=== PATIENT | female | born 1945 | race Caucasian/White ===

== ENCOUNTER → 2017-09-09 14:52 | Outpatient (CLI) | payer MEDICARE, OTHER, SELFPAY ==
[2017-08-14 19:29] VITALS: BMI 25.1
[2017-08-14 22:25] VITALS: BP 136/58
[2017-09-09 17:58] LABS: Color, Urine Yellow (Yellow); Glucose, Dipstick 1000 mg/dl (Normal); Ketone-Dipstick Negative (Negative); Leukocyte Esterase-Dipstick 25 /ul (Negative); Nitrite-Dipstick Negative (Negative); Occult Blood-Urine Negative /ul (Negative); Protein-Dipstick 15 mg/dl (Negative); Specific Gravity, Urine 1.015 (1.002-1.030); Urine Bilirubin Dipstick Negative (Negative); Urine Clarity Clear (Clear); Urine Urobilinogen Normal (Normal)
[2017-09-09 18:22] LABS: BNP,B-Type NATRIURETIC PEPTIDE 152.6 pg/mL (0-100)
[2017-09-09 18:25] LABS: AST(SGOT) 21 U/L (15-37); Alanine Aminotransfer ALT/SGPT 44 U/L (13-56); Albumin, Serum 3.4 g/dL (3.2-5.0); Alkaline Phosphatase 64 U/L (45-117); Anion Gap 7 (5-15); BUN 28 mg/dL (7-18); BUN/Creat Ratio 24.8 RATIO (10-20); Calcium,Total 8.3 mg/dL (8.5-10.1); Chloride 108 mmol/L (98-107); Creatinine, Serum 1.13 mg/dL (0.55-1.02); EST Glomerular Filtration Rate 50 mL/min (>60); Est Glom Filt Rate - Afr Amer 61 mL/min (>60); Globulin 3.3 g/dL (2.2-4.2); Glucose 120 mg/dL (74-106); Potassium 4.8 mmol/L (3.5-5.1); Protein, Total 6.7 g/dL (6.4-8.2); Sodium Level 141 mmol/L (136-145); Thyroid Stim Hormone (TSH) 1.37 uIU/mL (0.358-3.74)
== END ==
PROVIDERS: Family Provider Family Medicine; PCP Family Medicine; Visit Provider Family Medicine
DX: R60.0 Localized edema (principal); R53.83 Other fatigue; R06.00 Dyspnea, unspecified; E11.9 Type 2 diabetes mellitus without complications
CPT/HCPCS: 36415; 80053; 81002; 83880; 84443

== ENCOUNTER → 2017-09-24 14:13 | Outpatient (CLI) | payer MEDICARE, OTHER, SELFPAY ==
[2017-09-24 15:47] LABS: Basophil# 0.04 X10^3/uL; Basophil% 0.6 % (0-1); Eosinophil# 0.32 X10^3/uL; Eosinophils% 4.7 % (0-5); Hematocrit 35.9 % (37-47); Hemoglobin 11.3 g/dl (12.0-15.0); Lymphocyte % 26.4 % (19-41); Mean Corp Hgb Conc 31.5 g/gl (32-36); Mean Corpuscular Hgb 32.4 pg (27.0-32.0); Mean Corpuscular Volume 102.9 fL (81-99); Mean Platelet Vol. 9.8 fl (6.2-12.0); Monocyte# 0.62 X10^3/uL; Monocyte% 9.1 % (0-10); Neutrophil # 4.04 X10^3/uL (2.7-7.7); Neutrophil % 59.1 % (47-70); Platelet Count 352 K/mm3 (150-450); RBC Distribution Width CV 13.7 % (11.6-14.6); RBC Distribution Width SD 50.6 fl (35.1-43.9); Red Blood Count 3.49 M/mm3 (4.2-5.4); White Blood Count 6.8 K/mm3 (4.4-11.0)
[2017-09-24 15:51] LABS: POSITIVE COUNT NO; POSITIVE DIFFERENTIAL NO; POSITIVE MORPHOLOGY NO
[2017-09-24 15:57] LABS: ALB/GLOB Ratio 1.1 RATIO (0.9-2.4); AST(SGOT) 24 U/L (15-37); Alanine Aminotransfer ALT/SGPT 43 U/L (13-56); Albumin, Serum 3.8 g/dL (3.2-5.0); Alkaline Phosphatase 82 U/L (45-117); Anion Gap 8 (5-15); BUN 29 mg/dL (7-18); BUN/Creat Ratio 28.4 RATIO (10-20); Calcium,Total 8.8 mg/dL (8.5-10.1); Chloride 102 mmol/L (98-107); Creatinine, Serum 1.02 mg/dL (0.55-1.02); EST Glomerular Filtration Rate 57 mL/min (>60); Est Glom Filt Rate - Afr Amer 69 mL/min (>60); Globulin 3.5 g/dL (2.2-4.2); Glucose 114 mg/dL (74-106); Potassium 5.2 mmol/L (3.5-5.1); Protein, Total 7.3 g/dL (6.4-8.2); Sodium Level 136 mmol/L (136-145)
== END ==
PROVIDERS: Family Provider Family Medicine; PCP Family Medicine; Visit Provider Internal Medicine Rheumatology
DX: M06.4 Inflammatory polyarthropathy (principal); Z79.899 Other long term (current) drug therapy; M15.9 Polyosteoarthritis, unspecified; M17.0 Bilateral primary osteoarthritis of knee; M21.40 Flat foot [pes planus] (acquired), unspecified foot; M19.172 Post-traumatic osteoarthritis, left ankle and foot; M48.061 Spinal stenosis, lumbar region without neurogenic claudication; E11.9 Type 2 diabetes mellitus without complications; G25.81 Restless legs syndrome
CPT/HCPCS: 36415; 80053; 85025

== ENCOUNTER → 2017-10-02 12:39 | Outpatient (CLI) | payer MEDICARE, OTHER, SELFPAY ==
--- NOTE | 2017-10-02 12:42 | ECHOD_ITS ---
Reason For Study: BLE swelling Procedure This was a 2D Doppler, Color Flow transthoracic echocardiogram. Exam performed in department. Left Ventricle Normal LV size. Left ventricular systolic function is normal. The estimated ejection fraction is 65 %. No evidence for diastolic dysfunction. No regional wall motion abnormalities noted. Right Ventricle Normal RV size. Normal systolic function. Atria The left atrium is mildly enlarged. Normal right atrium. Mitral Valve Normal mitral valve. Mild (1+) eccentric mitral valve insufficiency. Tricuspid Valve Normal tricuspid valve. Mild (1+) tricuspid valve insufficiency. Pulmonary artery systolic pressure is 34 mmHg. Aortic Valve Normal aortic valve. Trisinus/trileaflet aortic valve. Pulmonic Valve Normal pulmonic valve. Great Vessels Normal aortic root. The pulmonary artery is normal size. Normal inferior vena cava. Pericardium/Pleural No pericardial effusion. MMode/2D Measurements & Calculations LVIDd: 4.0 cm IVSd: 1.1 cm LVOT diam: 1.9 cm LVIDs: 2.3 cm LVPWd: 0.97 cm LVOT area: 2.9 cm2 RVDd: 3.2 cm FS: 42.8 % Ao root diam: 2.6 cm LAV(MOD-bp): 75.0 ml LA A4 area: 22.9 cm2 LA dimension: 4.1 cm LAV(MOD-bp) Indexed: 48.2 ml/m2 LAV(MOD-sp2): 70.8 ml LAV(MOD-sp4): 77.5 ml RA A4 area: 16.2 cm2 Time Measurements MV dec time: 0.24 sec Doppler Measurements & Calculations MV E max eriberto: 94.5 cm/sec Lat Peak E' Eriberto: 7.5 cm/sec Med Peak E' Eriberto: 7.0 cm/sec MV A max eriberto: 89.3 cm/sec E/E' lat: 12.5 E/E' med: 13.5 MV E/A: 1.1 Ao V2 max: 128.8 cm/sec LV V1 max: 94.2 cm/sec PA V2 max: 93.5 cm/sec Ao max P.6 mmHg LV V1 max P.6 mmHg Ao V2 mean: 88.3 cm/sec Ao mean P.4 mmHg Ao V2 VTI: 32.5 cm WARREN(V,D): 2.1 cm2 TR max eriberto: 269.1 cm/sec TR max P.0 mmHg Interpretation Summary Normal LV size. Left ventricular systolic function is normal. The estimated ejection fraction is 65 %. Mild (1+) eccentric mitral valve insufficiency. Mild (1+) tricuspid valve insufficiency. Ordering Physician: Leonard Stewart Referring Physician: Leonard Stewart Performed By: Guerda Cisse, LYNN, RVT
== END ==
PROVIDERS: Family Provider Family Medicine; PCP Family Medicine; Visit Provider Family Medicine
DX: R60.0 Localized edema (principal); R53.83 Other fatigue
CPT/HCPCS: 93306

== ENCOUNTER → 2017-10-14 12:36 | Outpatient (CLI) | payer MEDICARE, OTHER, SELFPAY ==
--- NOTE | 2017-10-14 12:38 | VDLE_ITS ---
Reason For Study: edema RIGHT LEFT CFV is compressible, spontaneous, phasic, CFV is compressible, spontaneous, phasic, competent and demonstrates normal competent, and demonstrates normal augmentation. augmentation. FV is compressible, spontaneous, phasic, FV is compressible, spontaneous, phasic, competent and demonstrates normal competent and demonstrates normal augmentation. augmentation. POP V is compressible, spontaneous, phasic, POP V is compressible, spontaneous, phasic, competent and demonstrates normal competent and demonstrates normal augmentation. augmentation. T/P Trunk is compressible. T/P Trunk is compressible. PTV is compressible. PTV is compressible. RT PerV is compressible. LT PerV is compressible. S-F Junction is incompetent for greater S-F Junction is competent. than .5 seconds. GSV is competent throughout. GSV is competent throughout. SSV is competent. SSV is competent. Procedure Exam performed in department. The exam was diagnostic. A preliminary report was called and/or faxed to Dr. Stewart. Interpretation Summary Deep veins of the lower extremities are bilaterally patent and compressible segmentally. There is no evidence of deep vein thrombosis on either side. Valvular competence appears intact within the proximal deep venous systems bilaterally. The greater saphenous veins appear bilaterally patent and compressible segmentally. The right sapheno-femoral junction is incompetent . The left sapheno- femoral junction is competent . Valvular competence appears to be intact segmentally within the greater saphenous veins bilaterally. Small saphenous veins are patent and competent bilaterally. Ordering Physician: Leonard Stewart Performed By: Fox Conley RVT
== END ==
PROVIDERS: Family Provider Family Medicine; PCP Family Medicine; Visit Provider Family Medicine
DX: R60.0 Localized edema (principal)
CPT/HCPCS: 93970

== ENCOUNTER → 2017-12-23 15:20 | Outpatient (CLI) | payer MEDICARE, OTHER, SELFPAY ==
[2017-12-23 18:12] LABS: Absolute Lymphocyte Count 1.87 X10^3/ul (0.83-4.51); Absolute Neutrophil Count 4.8 X10^3/uL (2.0-7.7); Basophil# 0.03 X10^3/uL; Basophil% 0.4 % (0-1); Eosinophil# 0.11 X10^3/uL; Eosinophils% 1.5 % (0-5); Hematocrit 33.5 % (37-47); Hemoglobin 11.2 g/dl (12.0-15.0); Lymphocyte # 1.87 X10^3/ul (4.0); Lymphocyte % 25.3 % (19-41); Mean Corp Hgb Conc 33.4 g/gl (32-36); Mean Corpuscular Hgb 31.2 pg (27.0-32.0); Mean Corpuscular Volume 93.3 fL (81-99); Monocyte# 0.58 X10^3/uL; Monocyte% 7.9 % (0-10); Neutrophil # 4.78 X10^3/uL (2.7-7.7); Neutrophil % 64.8 % (47-70); Platelet Count 322 K/mm3 (150-450); RBC Distribution Width CV 13.6 % (11.6-14.6); RBC Distribution Width SD 46.2 fl (35.1-43.9); Red Blood Count 3.59 M/mm3 (4.2-5.4); White Blood Count 7.4 K/mm3 (4.4-11.0)
[2017-12-23 18:25] LABS: ALB/GLOB Ratio 1.1 RATIO (0.9-2.4); AST(SGOT) 17 U/L (15-37); Alanine Aminotransfer ALT/SGPT 29 U/L (13-56); Albumin, Serum 3.7 g/dL (3.2-5.0); Alkaline Phosphatase 84 U/L (45-117); Anion Gap 9 (5-15); BUN 25 mg/dL (7-18); BUN/Creat Ratio 25.1 RATIO (10-20); Calcium,Total 8.5 mg/dL (8.5-10.1); Chloride 110 mmol/L (98-107); EST Glomerular Filtration Rate 58 mL/min (>60); Est Glom Filt Rate - Afr Amer 71 mL/min (>60); Globulin 3.4 g/dL (2.2-4.2); Glucose 109 mg/dL (74-106); Potassium 4.8 mmol/L (3.5-5.1); Protein, Total 7.1 g/dL (6.4-8.2); Sodium Level 140 mmol/L (136-145)
[2017-12-23 18:29] LABS: POSITIVE COUNT NO; POSITIVE DIFFERENTIAL NO; POSITIVE MORPHOLOGY NO
== END ==
PROVIDERS: Family Provider Family Medicine; PCP Family Medicine; Visit Provider Internal Medicine Rheumatology
DX: M06.4 Inflammatory polyarthropathy (principal); Z79.899 Other long term (current) drug therapy; M15.9 Polyosteoarthritis, unspecified; M25.511 Pain in right shoulder; M17.0 Bilateral primary osteoarthritis of knee; M21.40 Flat foot [pes planus] (acquired), unspecified foot; M19.172 Post-traumatic osteoarthritis, left ankle and foot; M48.061 Spinal stenosis, lumbar region without neurogenic claudication; E11.9 Type 2 diabetes mellitus without complications; G25.81 Restless legs syndrome
CPT/HCPCS: 36415; 80053; 85025

== ENCOUNTER → 2018-03-02 13:49 | Outpatient (CLI) | payer MEDICARE, OTHER, SELFPAY | PROVIDERS: Family Provider Family Medicine; PCP Family Medicine; Visit Provider Family Medicine | DX: E11.9 Type 2 diabetes mellitus without complications (principal); E53.8 Deficiency of other specified B group vitamins; D50.9 Iron deficiency anemia, unspecified; D53.9 Nutritional anemia, unspecified; E55.9 Vitamin D deficiency, unspecified ==

== ENCOUNTER → 2018-03-03 15:07 | Outpatient (CLI) | payer MEDICARE, OTHER, SELFPAY | PROVIDERS: Family Provider Family Medicine; PCP Family Medicine; Visit Provider Family Medicine | DX: S81.812A Laceration without foreign body, left lower leg, initial encounter (principal) | CPT/HCPCS: 87070; 87077; 87186; 87205 ==

== ENCOUNTER → 2018-03-09 13:48 | Outpatient (CLI) | payer MEDICARE, OTHER, SELFPAY ==
[2018-03-09 14:53] LABS: Absolute Lymphocyte Count 1.38 X10^3/ul (0.83-4.51); Absolute Neutrophil Count 4.6 X10^3/uL (2.0-7.7); Basophil# 0.02 X10^3/uL; Basophil% 0.3 % (0-1); Eosinophil# 0.08 X10^3/uL; Eosinophils% 1.2 % (0-5); Hematocrit 30.6 % (37-47); Hemoglobin 9.6 g/dl (12.0-15.0); Lymphocyte # 1.38 X10^3/ul (4.0); Lymphocyte % 20.7 % (19-41); Mean Corp Hgb Conc 31.4 g/gl (32-36); Mean Corpuscular Hgb 31.4 pg (27.0-32.0); Mean Platelet Vol. 9.3 fl (6.2-12.0); Monocyte# 0.61 X10^3/uL; Monocyte% 9.1 % (0-10); Neutrophil # 4.57 X10^3/uL (2.7-7.7); Neutrophil % 68.4 % (47-70); Platelet Count 370 K/mm3 (150-450); RBC Distribution Width CV 14.1 % (11.6-14.6); RBC Distribution Width SD 51.1 fl (35.1-43.9); Red Blood Count 3.06 M/mm3 (4.2-5.4); White Blood Count 6.7 K/mm3 (4.4-11.0)
[2018-03-09 14:56] LABS: POSITIVE COUNT NO; POSITIVE DIFFERENTIAL NO; POSITIVE MORPHOLOGY NO
[2018-03-09 15:06] LABS: ALB/GLOB Ratio 0.9 RATIO (0.9-2.4); AST(SGOT) 18 U/L (15-37); Alanine Aminotransfer ALT/SGPT 24 U/L (13-56); Albumin, Serum 3.2 g/dL (3.2-5.0); Alkaline Phosphatase 74 U/L (45-117); Anion Gap 9 (5-15); BUN 24 mg/dL (7-18); BUN/Creat Ratio 17.9 RATIO (10-20); Calcium,Total 8.5 mg/dL (8.5-10.1); Chloride 114 mmol/L (98-107); Cholesterol 157 mg/dL (200); Creatinine, Serum 1.34 mg/dL (0.55-1.02); EST Glomerular Filtration Rate 41 mL/min (>60); Est Glom Filt Rate - Afr Amer 50 mL/min (>60); Ferritin 34 ng/mL (8-252); Globulin 3.4 g/dL (2.2-4.2); Glucose 47 mg/dL (74-106); High Density Lipoprotein 90 mg/dL; Iron 84 ug/dL (50-170); Potassium 4.6 mmol/L (3.5-5.1); Protein, Total 6.6 g/dL (6.4-8.2); Sodium Level 144 mmol/L (136-145); Triglycerides 113 mg/dL; Very Low Density Lipoprotein 23 mg/dL (5-40)
[2018-03-09 15:08] LABS: Hemoglobin A1c 7.8 % (4.2-6.3)
[2018-03-09 15:12] LABS: Vitamin B12 456 pg/mL (211-911); Vitamin D,25 Hydroxy 12.9 ng/mL (29.95-100.01)
[2018-03-09 15:19] LABS: Microalbumin:Creatinine Ratio 47.2 mg/g CRE (<30 mg/g CRE)
== END ==
PROVIDERS: Family Provider Family Medicine; PCP Family Medicine; Visit Provider Family Medicine
DX: E11.9 Type 2 diabetes mellitus without complications (principal); E53.8 Deficiency of other specified B group vitamins; D50.9 Iron deficiency anemia, unspecified; D53.9 Nutritional anemia, unspecified; E55.9 Vitamin D deficiency, unspecified
CPT/HCPCS: 36415; 80053; 80061; 82043; 82306; 82570; 82607; 82728; 83036; 83540; 85025

== ENCOUNTER → 2018-03-18 13:13 | Outpatient (CLI) | payer MEDICARE, OTHER, SELFPAY ==
[2018-03-18 14:36] LABS: Absolute Lymphocyte Count 1.41 X10^3/ul (0.83-4.51); Absolute Neutrophil Count 5.6 X10^3/uL (2.0-7.7); Basophil# 0.02 X10^3/uL; Basophil% 0.3 % (0-1); Eosinophil# 0.06 X10^3/uL; Eosinophils% 0.8 % (0-5); Hematocrit 30.4 % (37-47); Lymphocyte # 1.41 X10^3/ul (4.0); Lymphocyte % 18.4 % (19-41); Mean Corp Hgb Conc 32.9 g/gl (32-36); Mean Corpuscular Hgb 31.4 pg (27.0-32.0); Mean Corpuscular Volume 95.6 fL (81-99); Mean Platelet Vol. 9.6 fl (6.2-12.0); Monocyte# 0.57 X10^3/uL; Monocyte% 7.4 % (0-10); Neutrophil % 72.8 % (47-70); Platelet Count 321 K/mm3 (150-450); RBC Distribution Width CV 13.7 % (11.6-14.6); RBC Distribution Width SD 47.4 fl (35.1-43.9); Red Blood Count 3.18 M/mm3 (4.2-5.4); White Blood Count 7.7 K/mm3 (4.4-11.0)
[2018-03-18 14:46] LABS: ALB/GLOB Ratio 0.9 RATIO (0.9-2.4); AST(SGOT) 17 U/L (15-37); Alanine Aminotransfer ALT/SGPT 20 U/L (13-56); Albumin, Serum 3.3 g/dL (3.2-5.0); Alkaline Phosphatase 80 U/L (45-117); Anion Gap 10 (5-15); BUN 27 mg/dL (7-18); BUN/Creat Ratio 24.1 RATIO (10-20); Calcium,Total 8.6 mg/dL (8.5-10.1); Chloride 110 mmol/L (98-107); Creatinine, Serum 1.12 mg/dL (0.55-1.02); EST Glomerular Filtration Rate 51 mL/min (>60); Est Glom Filt Rate - Afr Amer 62 mL/min (>60); Globulin 3.8 g/dL (2.2-4.2); Glucose 129 mg/dL (74-106); Potassium 4.3 mmol/L (3.5-5.1); Protein, Total 7.1 g/dL (6.4-8.2); Sodium Level 140 mmol/L (136-145)
[2018-03-18 14:47] LABS: POSITIVE COUNT NO; POSITIVE DIFFERENTIAL NO; POSITIVE MORPHOLOGY NO
== END ==
PROVIDERS: Family Provider Family Medicine; PCP Family Medicine; Visit Provider Internal Medicine Rheumatology
DX: M06.4 Inflammatory polyarthropathy (principal); Z79.899 Other long term (current) drug therapy; M15.9 Polyosteoarthritis, unspecified; M25.511 Pain in right shoulder; M17.0 Bilateral primary osteoarthritis of knee; M21.40 Flat foot [pes planus] (acquired), unspecified foot; M19.172 Post-traumatic osteoarthritis, left ankle and foot; M48.061 Spinal stenosis, lumbar region without neurogenic claudication; E11.9 Type 2 diabetes mellitus without complications; G25.81 Restless legs syndrome
CPT/HCPCS: 36415; 80053; 85025

== ENCOUNTER → 2018-06-15 16:09 | Outpatient (CLI) | payer MEDICARE, OTHER, SELFPAY ==
[2018-06-15 18:00] LABS: Absolute Lymphocyte Count 1.27 X10^3/ul (0.83-4.51); Absolute Neutrophil Count 3.8 X10^3/uL (2.0-7.7); Basophil# 0.02 X10^3/uL; Basophil% 0.3 % (0-1); Eosinophil# 0.14 X10^3/uL; Eosinophils% 2.4 % (0-5); Hematocrit 32.1 % (37-47); Hemoglobin 10.2 g/dl (12.0-15.0); Lymphocyte # 1.27 X10^3/ul (4.0); Lymphocyte % 21.9 % (19-41); Mean Corp Hgb Conc 31.8 g/gl (32-36); Mean Corpuscular Hgb 30.7 pg (27.0-32.0); Mean Corpuscular Volume 96.7 fL (81-99); Monocyte# 0.55 X10^3/uL; Monocyte% 9.5 % (0-10); Neutrophil # 3.82 X10^3/uL (2.7-7.7); Neutrophil % 65.7 % (47-70); Platelet Count 307 K/mm3 (150-450); RBC Distribution Width CV 14.4 % (11.6-14.6); RBC Distribution Width SD 47.4 fl (35.1-43.9); Red Blood Count 3.32 M/mm3 (4.2-5.4); White Blood Count 5.8 K/mm3 (4.4-11.0)
[2018-06-15 18:04] LABS: POSITIVE COUNT NO; POSITIVE DIFFERENTIAL NO; POSITIVE MORPHOLOGY NO
[2018-06-15 18:07] LABS: AST(SGOT) 11 U/L (15-37); Alanine Aminotransfer ALT/SGPT 21 U/L (13-56); Albumin, Serum 3.3 g/dL (3.2-5.0); Alkaline Phosphatase 94 U/L (45-117); Anion Gap 10 (5-15); BUN 24 mg/dL (7-18); BUN/Creat Ratio 20.7 RATIO (10-20); Calcium,Total 8.4 mg/dL (8.5-10.1); Chloride 105 mmol/L (98-107); Creatinine, Serum 1.16 mg/dL (0.55-1.02); EST Glomerular Filtration Rate 49 mL/min (>60); Est Glom Filt Rate - Afr Amer 59 mL/min (>60); Globulin 3.3 g/dL (2.2-4.2); Glucose 154 mg/dL (74-106); Potassium 4.4 mmol/L (3.5-5.1); Protein, Total 6.6 g/dL (6.4-8.2); Sodium Level 141 mmol/L (136-145)
== END ==
PROVIDERS: Family Provider Family Medicine; PCP Family Medicine; Referring Provider Internal Medicine Rheumatology; Visit Provider Internal Medicine Rheumatology
DX: M06.4 Inflammatory polyarthropathy (principal); Z79.899 Other long term (current) drug therapy; M15.9 Polyosteoarthritis, unspecified; M17.0 Bilateral primary osteoarthritis of knee; M21.40 Flat foot [pes planus] (acquired), unspecified foot; M19.172 Post-traumatic osteoarthritis, left ankle and foot; E11.9 Type 2 diabetes mellitus without complications; G25.81 Restless legs syndrome
CPT/HCPCS: 36415; 80053; 85025

== ENCOUNTER 2018-06-24 11:25 | Emergency (ER) | payer OTHER, MEDICARE, SELFPAY ==
[2018-06-24 11:26] VITALS: BP 174/58; PULSE 63; RESP 16; TEMP 36.7; O2SAT 99; BMI 24.4
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
[2018-06-24] MEDS: Ondansetron ODT 4 MG Tablet PO (12:12)
[2018-06-24] MEDS: morphine 8 MG/ML Syringe SC (12:12)
--- NOTE | 2018-06-24 13:11 | NURSING ---
DR Dena DUGAN
--- NOTE | 2018-06-24 13:30 | ED.RN ---
ATTEMPTED TO PLACE IV AND DRAW LABS X1 ATTEMPT. ENTERS ROOM AND STATES THAT PT CAN GO HOME AND SEE DR FRANCO AN OUTPT. DR STATES THAT IV AND LABS NOT NEEDED. DR AWARE OF ELEVATED BP-STATES IT'S D/T ELEVATED PAIN LEVEL. KNEE IMMOBILIZER APPLIED TO RT KNEE. PT AMB FROM BED TO DOOR AND BACK TO BED. ASSISTED W/BEDSIDE COMMODE. PT STATES SHE FEELS COMFORTABLE GOING HOME. DR STATES OK FOR PT TO GO HOME AFTER CT SCAN OBTAINED. PT AND FAMILY AGREEABLE.
[2018-06-24 13:45] VITALS: BP 188/66; PULSE 63; RESP 16; O2SAT 100
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
[2018-06-24] MEDS: oxyCODONE 5 MG Tablet 10 MG PO (14:38)
[2018-06-24 14:47] VITALS: BP 205/92; PULSE 63; RESP 16; O2SAT 100
== END 2018-06-24 14:50 | disposition home or self-care (01) ==
LOC: ED 12:06
PROVIDERS: Emergency Provider Emergency Medicine; Family Provider Family Medicine; PCP Family Medicine
DX: S82.141A Displaced bicondylar fracture of right tibia, initial encounter for closed fracture (principal); V43.52XA Car driver injured in collision with other type car in traffic accident, initial encounter; Y93.9 Activity, unspecified; Y92.9 Unspecified place or not applicable; E11.9 Type 2 diabetes mellitus without complications; Z79.84 Long term (current) use of oral hypoglycemic drugs
CPT/HCPCS: 73502; 73560; 73700; 96372; 99285; A4216

== ENCOUNTER → 2018-09-03 17:31 | Outpatient (CLI) | payer OTHER, MEDICARE, SELFPAY ==
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
== END ==
PROVIDERS: Family Provider Family Medicine; PCP Family Medicine; Referring Provider Physician Assistant Surgical; Visit Provider Physician Assistant Surgical
DX: S82.134D Nondisplaced fracture of medial condyle of right tibia, subsequent encounter for closed fracture with routine healing (principal); S72.434D Nondisplaced fracture of medial condyle of right femur, subsequent encounter for closed fracture with routine healing
CPT/HCPCS: 73700

== ENCOUNTER 2018-10-28 08:16 | Outpatient (RCR) | payer MEDICARE, OTHER, SELFPAY ==
[2018-10-28 09:09] VITALS: BP 150/58; PULSE 72; RESP 18; TEMP 36.4; BMI 24.4
--- NOTE | 2018-10-28 12:43 | PCM.WC.HP ---
(1) Open wound of left lower extremity Status: Acute Current Visit: Yes Code(s): S81.802A - Unspecified open wound, left lower leg, initial encounter Comment: Traumatic/penetrating with fat layer exposed. History of Present Illness Date of Service: 10/28/18 Chief Complaint: Non healing left lower extremity wound. History of Wound: Ms. Garcia is a 73-year-old who was in a stable state of health until about 3 weeks ago when a PET cage fell on her left lower extremity creating a wound. She had been managed by her primary care physician and has applied a silver dressing daily however there has been slow progression in healing. She denies any significant drainage. She also denies chills, fever or feeling of unwell. Past Medical History Allergies/Adverse Reactions: Allergies No Known Allergies Allergy (Verified 06/24/18 11:33) Home Medications: Ambulatory Orders Medication Instructions Recorded Empagliflozin [Jardiance] 10 mg PO DAILY 08/14/17 Ferrous Sulfate [Iron] 325 mg PO DAILY 08/14/17 Pioglitazone [Actos] 15 mg PO DAILY 08/14/17 Pramipexole Di-HCl [Mirapex] 2 mg PO QHS 08/14/17 Sitagliptin Phos/Metformin HCl 1 tablet PO BIDCM 08/14/17 [Janumet 50-1,000 MG Tablet] Propranolol HCl 20 mg PO BID 10/28/18 Smoking Status: Never smoker Review of Systems Constitutional: Denies: Anorexia, Chills, Fever, Night Sweats Eyes: Denies: Blurred vision, Pain, Redness HEENT: Denies: Difficulty Swallowing Cardiovascular: Denies: Claudication Respiratory: Denies: Hemoptysis Gastrointestinal: Denies: Abdominal Pain, Hematemesis, Vomiting Genitourinary: Denies: Hematuria Skin: Denies: Jaundice - Physical Exam Vital Signs Temp Pulse Resp BP 97.5 F L 72 18 150/58 H 10/28/18 09:09 10/28/18 09:09 10/28/18 09:09 10/28/18 09:09 General: Alert, Oriented x3, Cooperative, No apparent distress HEENT: Atraumatic, Normocephalic Oral: Moist Mucosa Neck: Supple Lungs: Normal air movement Cardiovascular: Regular rate, Regular Rhythm, Normal S1, Normal S2 Abdomen: Soft, Non Tender Extremities: No cyanosis, Edema Skin: Ulcer/ Wound Wound Measurements and Assessment WC - Nurse 1 - General Ulcer Measurement Start: 10/28/18 09:09 Freq: Status: Active Protocol: Activity Type Activity Date Activity User E-Sign Co-Sign Detail Recorded Client Recorded Date Recorded By Document 10/28/18 09:09 RB [id number] 10/28/18 09:13 RB 10/28/18 09:09 Wound Center Nurse 1 [Ulcer Assessment] 1. L scherer -Combined with other wound No -Current Size (cm) - Length 3.9 -Current Size (cm) - Width 0.4 -Current Size (cm) - Depth 0.2 -Total Square Cm 1.56 -Photo Taken Yes -Tunneling No -Undermining/Tunneling No -Circular Undermining No -Exudate Amt Small -Exudate Type Serosanguineous -Wound Margin Distinct, Outline Attached -Granulation Amt Medium (34-66%) -Granulation Quality [place] -Slough/Fibrin Yes -Necrosis Amt Small (1-33%) -Necrotic Tissue Type Adherent Slough -Structure Exposed N/A -Texture (Stefany-wound Skin Appearance) Assessed -Moisture (Stefany-wound Skin Appearance Assessed ) -Color (Stefany-wound Skin Appearance) Assessed -Temperature (Stefany-wound Skin No Abnormality Appearance) (Pt Warm) -Tenderness on Palpation (Stefany-wound No Skin Appearance) -Ulcer Cleansing Rinsed/ Irrigated with Saline -Foul Odor after Cleansing No -Anesthetic Used 4% Lidocaine Solution [Edema Assessment] -Lower Limb Edema Present Yes -Right Ankle (cm) 23 -Left Calf (cm) 36 -Left Ankle (cm) 22.5 WC - Nurse 2 - General Ulcer CM Notes Start: 10/28/18 09:09 Freq: Status: Active Protocol: Activity Type Activity Date Activity User E-Sign Co-Sign Detail Recorded Client Recorded Date Recorded By Document 10/28/18 09:29 MW [id number] 10/28/18 09:37 MW 10/28/18 09:29 Wound Center Nurse 2 [Procedure/Treatment] 1. L scherer -Time 09:30 -Correct Patient Yes -Correct Side, Site, Position Yes -Correct Procedure Yes -Procedure Performed Yes -Type of Procedure Debridement -Clinical Debridement Subcutaneous -Post Debridement Size (cm) - Length 4.0 -Post Debridement Size (cm) - Width 0.3 -Post Debridement Size (cm) - Depth 0.1 -Total Square Cm 1.20 -Wound/Ulcer Outcome Not Healed -Ulcer Cleansing Rinsed/ Irrigated with Saline -Foul Odor after Cleansing No -Bioengineered Tissue No -Bleeding Controlled with Pressure -Offloading No -Treatment Response Procedure Tolerated Well [See Physician Procedure note for Specifics] Pain Scale: 0-10 Numeric [Pain] -Is Patient Pain Free? Yes Musculoskeletal: No Muscle Wasting Neurological: Cranial nerves II-XII grossly intact Psych/Mental Status: Normal Affect Debridement Note Post-Debridement Measurements/Treatment WC - Nurse 2 - General Ulcer CM Notes Start: 10/28/18 09:09 Freq: Status: Active Protocol: Activity Type Activity Date Activity User E-Sign Co-Sign Detail Recorded Client Recorded Date Recorded By Document 10/28/18 09:29 MW [id number] 10/28/18 09:37 MW 10/28/18 09:29 Wound Center Nurse 2 1. L scherer -Time 09:30 -Correct Patient Yes -Correct Side, Site, Position Yes -Correct Procedure Yes -Procedure Performed Yes -Type of Procedure Debridement -Clinical Debridement Subcutaneous -Post Debridement Size (cm) - Length 4.0 -Post Debridement Size (cm) - Width 0.3 -Post Debridement Size (cm) - Depth 0.1 -Total Square Cm 1.20 -Wound/Ulcer Outcome Not Healed -Ulcer Cleansing Rinsed/ Irrigated with Saline -Foul Odor after Cleansing No -Bioengineered Tissue No -Bleeding Controlled with Pressure -Offloading No -Treatment Response Procedure Tolerated Well Pain Scale: 0-10 Numeric Is Patient Pain Free? Yes Wound debrided: Left lower extremity Wound Grade/Stage: Stage II Type of Debridement: Excisional debridement Anesthesia Used: 4% Lidocaine Solution Depth: Down to and including healthy tissue, in the subcutaneous layer Percentage of wound debrided: 100 Instrument Used: 3mm curette Tissue Removed: Slough and devitalized tissue Severity: Fat Layer Exposed Amount of bleeding with debridement: Mild Bleeding Controlled with: Pressure Patient tolerated procedure well Assessment/Plan Active Problems Open wound of left lower extremity (Acute) Traumatic/penetrating with fat layer exposed. Assessment: Traumatic penetrating left lower extremity wound with fat layer exposed. Plan: Debridement done as documented above. Procedure was well-tolerated. Significant tenderness. Cultures taken. Switch to Fibracol with Adaptic over top. Change daily. Double layer Tubigrip for edema management. Single layer to the right. Advised to elevate lower extremities when seated in bed. Increased protein intake/supplements also recommended. She was advised to call with any questions or concerns. Follow-up in 1 week. This note was generated with [employer] dictation software. It may contain incorrect words, spelling, and punctuation that were not noted in checking the note before signing.
== END 2018-11-01 23:59 ==
LOC: WC 08:16
PROVIDERS: Family Provider Family Medicine; PCP Family Medicine; Visit Provider Internal Medicine
DX: S81.832A Puncture wound without foreign body, left lower leg, initial encounter (principal); W22.8XXA Striking against or struck by other objects, initial encounter
CPT/HCPCS: 11042; 87070; 87075; 87205; 99213; G0463

== ENCOUNTER 2018-11-25 10:30 | Outpatient (RCR) | payer MEDICARE, OTHER, SELFPAY ==
[2018-11-02 01:44] VITALS: BP 150/58; PULSE 72; RESP 18; TEMP 36.4
[2018-11-04 10:01] VITALS: BP 147/78; PULSE 67; RESP 16; TEMP 36.6; BMI 24.4
--- NOTE | 2018-11-04 13:54 | PCM.WC.PN ---
(1) Open wound of left lower extremity Status: Acute Current Visit: No Code(s): S81.802A - Unspecified open wound, left lower leg, initial encounter Comment: Traumatic/penetrating with fat layer exposed. Type of Wound Chief Complaint: Non healing left lower extremity wound. History of Wound: Ms. Garcia is a 73-year-old who was in a stable state of health until about 3 weeks ago when a PET cage fell on her left lower extremity creating a wound. She had been managed by her primary care physician and has applied a silver dressing daily however there has been slow progression in healing. She denies any significant drainage. She also denies chills, fever or feeling of unwell. Progress of Wound: Improving. No new concerns at this time. Culture with no growth. - Physical Exam Vital Signs Temp Pulse Resp BP 98 F 67 16 147/78 H 11/04/18 10:01 11/04/18 10:01 11/04/18 10:01 11/04/18 10:01 General: Alert, Oriented x3, Cooperative, No apparent distress HEENT: Atraumatic, Normocephalic Oral: Moist Mucosa Neck: Supple Lungs: Normal air movement Extremities: No cyanosis Skin: Ulcer/ Wound Wound Measurements and Assessment WC - Nurse 1 - General Ulcer Measurement Start: 11/04/18 10:01 Freq: Status: Active Protocol: Activity Type Activity Date Activity User E-Sign Co-Sign Detail Recorded Client Recorded Date Recorded By Document 11/04/18 10:01 [facility] [id number] 11/04/18 10:09 [facility] 11/04/18 10:01 Wound Center Nurse 1 [Ulcer Assessment] 1. L scherer -Combined with other wound No -Current Size (cm) - Length 3.7 -Current Size (cm) - Width 0.3 -Current Size (cm) - Depth 0.1 -Total Square Cm 1.11 -Photo Taken No -Epithelialization None Present -Tunneling No -Undermining/Tunneling No -Circular Undermining No -Exudate Amt None Present -Wound Margin Distinct, Outline Attached -Granulation Amt None Present (0 %) -Slough/Fibrin Yes -Necrosis Amt Large (67-100%) -Necrotic Tissue Type Adherent Slough -Texture (Stefany-wound Skin Appearance) Assessed Scarring -Moisture (Stefany-wound Skin Appearance Assessed ) Dry/Scaly -Color (Stefany-wound Skin Appearance) Assessed -Temperature (Stefany-wound Skin No Abnormality Appearance) (Pt Warm) -Tenderness on Palpation (Stefany-wound No Skin Appearance) -Ulcer Cleansing Rinsed/ Irrigated with Saline -Foul Odor after Cleansing No -Anesthetic Used 5% Lidocaine Gel [Edema Assessment] -Lower Limb Edema Present Yes -Left Calf (cm) 34 -Left Ankle (cm) 21.1 WC - Nurse 2 - General Ulcer CM Notes Start: 11/04/18 10:01 Freq: Status: Active Protocol: Activity Type Activity Date Activity User E-Sign Co-Sign Detail Recorded Client Recorded Date Recorded By Document 11/04/18 10:28 MW [id number] 11/04/18 10:30 MW 11/04/18 10:28 Wound Center Nurse 2 [Procedure/Treatment] 1. L scherer -Time 10:28 -Correct Patient Yes -Correct Side, Site, Position Yes -Correct Procedure Yes -Procedure Performed Yes -Type of Procedure Debridement -Clinical Debridement Subcutaneous -Post Debridement Size (cm) - Length 3.0 -Post Debridement Size (cm) - Width 0.3 -Post Debridement Size (cm) - Depth 0.1 -Total Square Cm 0.90 -Wound/Ulcer Outcome Not Healed -Ulcer Cleansing Rinsed/ Irrigated with Saline -Foul Odor after Cleansing No -Bioengineered Tissue No -Bleeding Controlled with Pressure -Offloading No -Treatment Response Procedure Tolerated Well [See Physician Procedure note for Specifics] Pain Scale: 0-10 Numeric [Pain] -Is Patient Pain Free? Yes Musculoskeletal: No Muscle Wasting Neurological: Cranial nerves II-XII grossly intact Psych/Mental Status: Normal Affect Debridement Note Post-Debridement Measurements/Treatment WC - Nurse 2 - General Ulcer CM Notes Start: 11/04/18 10:01 Freq: Status: Active Protocol: Activity Type Activity Date Activity User E-Sign Co-Sign Detail Recorded Client Recorded Date Recorded By Document 11/04/18 10:28 MW [id number] 11/04/18 10:30 MW 11/04/18 10:28 Wound Center Nurse 2 1. L scherer -Time 10:28 -Correct Patient Yes -Correct Side, Site, Position Yes -Correct Procedure Yes -Procedure Performed Yes -Type of Procedure Debridement -Clinical Debridement Subcutaneous -Post Debridement Size (cm) - Length 3.0 -Post Debridement Size (cm) - Width 0.3 -Post Debridement Size (cm) - Depth 0.1 -Total Square Cm 0.90 -Wound/Ulcer Outcome Not Healed -Ulcer Cleansing Rinsed/ Irrigated with Saline -Foul Odor after Cleansing No -Bioengineered Tissue No -Bleeding Controlled with Pressure -Offloading No -Treatment Response Procedure Tolerated Well Pain Scale: 0-10 Numeric Is Patient Pain Free? Yes Wound debrided: Left lower extremity Wound Grade/Stage: Stage II Type of Debridement: Excisional debridement Anesthesia Used: 4% Lidocaine Solution Depth: Down to and including healthy tissue, in the subcutaneous layer Percentage of wound debrided: 100 Instrument Used: 3mm curette Tissue Removed: Slough and devitalized tissue Severity: Fat Layer Exposed Amount of bleeding with debridement: Mild Bleeding Controlled with: Pressure Patient tolerated procedure well Assessment/Plan Assessment: Traumatic penetrating left lower extremity wound with fat layer exposed. Plan: Debridement done as documented above. Procedure was well-tolerated. Tenderness has significantly improved. Continue Fibracol with Adaptic over top. Change daily. Double layer Tubigrip for edema management. Single layer to the right. Advised to elevate lower extremities when seated in bed. Increased protein intake/supplements also recommended. She was advised to call with any questions or concerns. Follow-up in 1 week. This note was generated with [employer] dictation software. It may contain incorrect words, spelling, and punctuation that were not noted in checking the note before signing.
--- NOTE | 2018-11-04 13:57 | PN.PCM_ITS ---
(1) Open wound of left lower extremity Status: Acute Current Visit: No Code(s): S81.802A - Unspecified open wound, left lower leg, initial encounter Comment: Traumatic/penetrating with fat layer exposed. Type of Wound Chief Complaint: Non healing left lower extremity wound. History of Wound: Ms. Garcia is a 73-year-old who was in a stable state of health until about 3 weeks ago when a PET cage fell on her left lower extremity creating a wound. She had been managed by her primary care physician and has applied a silver dressing daily however there has been slow progression in healing. She denies any significant drainage. She also denies chills, fever or feeling of unwell. Progress of Wound: Improving. No new concerns at this time. Culture with no growth. - Physical Exam Vital Signs Temp Pulse Resp BP 98 F 67 16 147/78 H 11/04/18 10:01 11/04/18 10:01 11/04/18 10:01 11/04/18 10:01 General: Alert, Oriented x3, Cooperative, No apparent distress HEENT: Atraumatic, Normocephalic Oral: Moist Mucosa Neck: Supple Lungs: Normal air movement Extremities: No cyanosis Skin: Ulcer/ Wound Wound Measurements and Assessment WC - Nurse 1 - General Ulcer Measurement Start: 11/04/18 10:01 Freq: Status: Active Protocol: Activity Type Activity Date Activity User E-Sign Co-Sign Detail Recorded Client Recorded Date Recorded By Document 11/04/18 10:01 [facility] [id number] 11/04/18 10:09 [facility] 11/04/18 10:01 Wound Center Nurse 1 [Ulcer Assessment] 1. L scherer -Combined with other wound No -Current Size (cm) - Length 3.7 -Current Size (cm) - Width 0.3 -Current Size (cm) - Depth 0.1 -Total Square Cm 1.11 -Photo Taken No -Epithelialization None Present -Tunneling No -Undermining/Tunneling No -Circular Undermining No -Exudate Amt None Present -Wound Margin Distinct, Outline Attached -Granulation Amt None Present (0 %) -Slough/Fibrin Yes -Necrosis Amt Large (67-100%) -Necrotic Tissue Type Adherent Slough -Texture (Stefany-wound Skin Appearance) Assessed Scarring -Moisture (Stefany-wound Skin Appearance Assessed ) Dry/Scaly -Color (Stefany-wound Skin Appearance) Assessed -Temperature (Stefany-wound Skin No Abnormality Appearance) (Pt Warm) -Tenderness on Palpation (Stefany-wound No Skin Appearance) -Ulcer Cleansing Rinsed/ Irrigated with Saline -Foul Odor after Cleansing No -Anesthetic Used 5% Lidocaine Gel [Edema Assessment] -Lower Limb Edema Present Yes -Left Calf (cm) 34 -Left Ankle (cm) 21.1 WC - Nurse 2 - General Ulcer CM Notes Start: 11/04/18 10:01 Freq: Status: Active Protocol: Activity Type Activity Date Activity User E-Sign Co-Sign Detail Recorded Client Recorded Date Recorded By Document 11/04/18 10:28 MW [id number] 11/04/18 10:30 MW 11/04/18 10:28 Wound Center Nurse 2 [Procedure/Treatment] 1. L scherer -Time 10:28 -Correct Patient Yes -Correct Side, Site, Position Yes -Correct Procedure Yes -Procedure Performed Yes -Type of Procedure Debridement -Clinical Debridement Subcutaneous -Post Debridement Size (cm) - Length 3.0 -Post Debridement Size (cm) - Width 0.3 -Post Debridement Size (cm) - Depth 0.1 -Total Square Cm 0.90 -Wound/Ulcer Outcome Not Healed -Ulcer Cleansing Rinsed/ Irrigated with Saline -Foul Odor after Cleansing No -Bioengineered Tissue No -Bleeding Controlled with Pressure -Offloading No -Treatment Response Procedure Tolerated Well [See Physician Procedure note for Specifics] Pain Scale: 0-10 Numeric [Pain] -Is Patient Pain Free? Yes Musculoskeletal: No Muscle Wasting Neurological: Cranial nerves II-XII grossly intact Psych/Mental Status: Normal Affect Debridement Note Post-Debridement Measurements/Treatment WC - Nurse 2 - General Ulcer CM Notes Start: 11/04/18 10:01 Freq: Status: Active Protocol: Activity Type Activity Date Activity User E-Sign Co-Sign Detail Recorded Client Recorded Date Recorded By Document 11/04/18 10:28 MW [id number] 11/04/18 10:30 MW 11/04/18 10:28 Wound Center Nurse 2 1. L scherer -Time 10:28 -Correct Patient Yes -Correct Side, Site, Position Yes -Correct Procedure Yes -Procedure Performed Yes -Type of Procedure Debridement -Clinical Debridement Subcutaneous -Post Debridement Size (cm) - Length 3.0 -Post Debridement Size (cm) - Width 0.3 -Post Debridement Size (cm) - Depth 0.1 -Total Square Cm 0.90 -Wound/Ulcer Outcome Not Healed -Ulcer Cleansing Rinsed/ Irrigated with Saline -Foul Odor after Cleansing No -Bioengineered Tissue No -Bleeding Controlled with Pressure -Offloading No -Treatment Response Procedure Tolerated Well Pain Scale: 0-10 Numeric Is Patient Pain Free? Yes Wound debrided: Left lower extremity Wound Grade/Stage: Stage II Type of Debridement: Excisional debridement Anesthesia Used: 4% Lidocaine Solution Depth: Down to and including healthy tissue, in the subcutaneous layer Percentage of wound debrided: 100 Instrument Used: 3mm curette Tissue Removed: Slough and devitalized tissue Severity: Fat Layer Exposed Amount of bleeding with debridement: Mild Bleeding Controlled with: Pressure Patient tolerated procedure well Assessment/Plan Assessment: Traumatic penetrating left lower extremity wound with fat layer exposed. Plan: Debridement done as documented above. Procedure was well-tolerated. Tenderness has significantly improved. Continue Fibracol with Adaptic over top. Change daily. Double layer Tubigrip for edema management. Single layer to the right. Advised to elevate lower extremities when seated in bed. Increased protein intake/supplements also recommended. She was advised to call with any questions or concerns. Follow-up in 1 week. This note was generated with [employer] dictation software. It may contain incorrect words, spelling, and punctuation that were not noted in checking the note before signing.
[2018-11-11 10:58] VITALS: BP 139/75; PULSE 66; RESP 16; TEMP 36.4; BMI 24.4
--- NOTE | 2018-11-11 11:10 | PN.PCM_ITS ---
(1) Open wound of left lower extremity Status: Acute Current Visit: Yes Code(s): S81.802A - Unspecified open wound, left lower leg, initial encounter Comment: Traumatic/penetrating with fat layer exposed. Type of Wound Chief Complaint: Non healing left lower extremity wound. History of Wound: Ms. Garcia is a 73-year-old who was in a stable state of health until about 3 weeks ago when a PET cage fell on her left lower extremity creating a wound. She had been managed by her primary care physician and has applied a silver dressing daily however there has been slow progression in healing. She denies any significant drainage. She also denies chills, fever or feeling of unwell. Progress of Wound: Improving. No new concerns at this time. - Physical Exam Vital Signs Temp Pulse Resp BP 97.5 F L 66 16 139/75 H 11/11/18 10:58 11/11/18 10:58 11/11/18 10:58 11/11/18 10:58 General: Alert, Oriented x3, Cooperative, No apparent distress HEENT: Atraumatic, Normocephalic Oral: Moist Mucosa Neck: Supple Lungs: Normal air movement Extremities: No cyanosis, Edema Skin: Ulcer/ Wound Wound Measurements and Assessment WC - Nurse 1 - General Ulcer Measurement Start: 11/04/18 10:01 Freq: Status: Active Protocol: Activity Type Activity Date Activity User E-Sign Co-Sign Detail Recorded Client Recorded Date Recorded By Document 11/11/18 10:58 [facility] [id number] 11/11/18 11:00 [facility] 11/11/18 10:58 Wound Center Nurse 1 [Ulcer Assessment] 1. L scherer -Combined with other wound No -Current Size (cm) - Length 3.3 -Current Size (cm) - Width 0.2 -Current Size (cm) - Depth 0.2 -Total Square Cm 0.66 -Photo Taken No -Epithelialization Small 1-33% -Tunneling No -Undermining/Tunneling No -Circular Undermining No -Exudate Amt Small -Exudate Type Serosanguineous -Wound Margin Distinct, Outline Attached -Granulation Amt Medium (34-66%) -Granulation Quality Red -Slough/Fibrin Yes -Necrosis Amt Medium (34-66%) -Necrotic Tissue Type Adherent Slough -Texture (Stefany-wound Skin Appearance) Assessed Scarring -Moisture (Stefany-wound Skin Appearance Assessed ) Dry/Scaly -Color (Stefany-wound Skin Appearance) Assessed -Temperature (Stefany-wound Skin No Abnormality Appearance) (Pt Warm) -Tenderness on Palpation (Stefany-wound No Skin Appearance) -Ulcer Cleansing Rinsed/ Irrigated with Saline -Foul Odor after Cleansing No -Anesthetic Used 5% Lidocaine Gel [Edema Assessment] -Lower Limb Edema Present Yes -Left Calf (cm) 32.8 -Left Ankle (cm) 21.4 - Nurse 2 - General Ulcer CM Notes Start: 11/04/18 10:01 Freq: Status: Active Protocol: Activity Type Activity Date Activity User E-Sign Co-Sign Detail Recorded Client Recorded Date Recorded By Document 11/11/18 11:07 MW [id number] 11/11/18 11:08 MW 11/11/18 11:07 Wound Center Nurse 2 [Procedure/Treatment] 1. L scherer -Time 11:07 -Correct Patient Yes -Correct Side, Site, Position Yes -Correct Procedure Yes -Procedure Performed Yes -Type of Procedure Debridement -Clinical Debridement Subcutaneous -Post Debridement Size (cm) - Length 2.0 -Post Debridement Size (cm) - Width 0.2 -Post Debridement Size (cm) - Depth 0.2 -Total Square Cm 0.40 -Wound/Ulcer Outcome Not Healed -Ulcer Cleansing Rinsed/ Irrigated with Saline -Foul Odor after Cleansing No -Bioengineered Tissue No -Bleeding Controlled with Pressure -Offloading No -Treatment Response Procedure Tolerated Well [See Physician Procedure note for Specifics] Pain Scale: 0-10 Numeric [Pain] -Is Patient Pain Free? Yes Musculoskeletal: No Muscle Wasting Neurological: Cranial nerves II-XII grossly intact Psych/Mental Status: Normal Affect Debridement Note Post-Debridement Measurements/Treatment - Nurse 2 - General Ulcer CM Notes Start: 11/04/18 10:01 Freq: Status: Active Protocol: Activity Type Activity Date Activity User E-Sign Co-Sign Detail Recorded Client Recorded Date Recorded By Document 11/04/18 10:28 MW [id number] 11/04/18 10:30 MW Document 11/11/18 11:07 MW [id number] 11/11/18 11:08 MW 11/04/18 11/11/18 10:28 11:07 Wound Center Nurse 2 1. L scherer -Time 10:28 11:07 -Correct Patient Yes Yes -Correct Side, Site, Position Yes Yes -Correct Procedure Yes Yes -Procedure Performed Yes Yes -Type of Procedure Debridement Debridement -Clinical Debridement Subcutaneous Subcutaneous -Post Debridement Size (cm) - Length 3.0 2.0 -Post Debridement Size (cm) - Width 0.3 0.2 -Post Debridement Size (cm) - Depth 0.1 0.2 -Total Square Cm 0.90 0.40 -Wound/Ulcer Outcome Not Healed Not Healed -Ulcer Cleansing Rinsed/ Rinsed/ Irrigated with Irrigated with Saline Saline -Foul Odor after Cleansing No No -Bioengineered Tissue No No -Bleeding Controlled with Pressure Pressure -Offloading No No -Treatment Response Procedure Procedure Tolerated Well Tolerated Well Pain Scale: 0-10 Numeric Is Patient Pain Free? Yes Yes Wound debrided: Left lower extremity Wound Grade/Stage: Stage II Type of Debridement: Excisional debridement Anesthesia Used: 4% Lidocaine Solution Depth: Down to and including healthy tissue, in the subcutaneous layer Percentage of wound debrided: 100 Instrument Used: 3mm curette Tissue Removed: Slough and devitalized tissue Severity: Fat Layer Exposed Amount of bleeding with debridement: Mild Bleeding Controlled with: Pressure Patient tolerated procedure well Assessment/Plan Active Problems Open wound of left lower extremity (Acute) Traumatic/penetrating with fat layer exposed. Assessment: Traumatic penetrating left lower extremity wound with fat layer exposed. Plan: Improving. Debridement done as documented above. Procedure was well- tolerated. Continue Fibracol with Adaptic over top. Change daily. Double layer Tubigrip for edema management. Single layer to the right. Advised to elevate lower extremities when seated in bed. Increased protein intake/supplements also recommended. She was advised to call with any questions or concerns. Follow-up in 1 week. This note was generated with [employer] software. It may contain incorrect words, spelling, and punctuation that were not noted in checking the note before signing.
[2018-11-18 11:17] VITALS: BP 115/60; PULSE 72; RESP 18; TEMP 36.1; BMI 24.4
--- NOTE | 2018-11-18 12:05 | PCM.WC.PN ---
(1) Open wound of left lower extremity Status: Acute Current Visit: Yes Code(s): S81.802A - Unspecified open wound, left lower leg, initial encounter Comment: Traumatic/penetrating with fat layer exposed. Type of Wound Chief Complaint: Non healing left lower extremity wound. History of Wound: Ms. Garcia is a 73-year-old who was in a stable state of health until about 3 weeks ago when a PET cage fell on her left lower extremity creating a wound. She had been managed by her primary care physician and has applied a silver dressing daily however there has been slow progression in healing. She denies any significant drainage. She also denies chills, fever or feeling of unwell. Progress of Wound: Improving. No new concerns at this time. - Physical Exam Vital Signs Temp Pulse Resp BP 97 F L 72 18 115/60 11/18/18 11:17 11/18/18 11:17 11/18/18 11:17 11/18/18 11:17 General: Alert, Oriented x3, Cooperative, No apparent distress HEENT: Atraumatic, Normocephalic Oral: Moist Mucosa Neck: Supple Lungs: Normal air movement Extremities: No cyanosis, Edema Skin: Ulcer/ Wound Wound Measurements and Assessment WC - Nurse 1 - General Ulcer Measurement Start: 11/04/18 10:01 Freq: Status: Active Protocol: Activity Type Activity Date Activity User E-Sign Co-Sign Detail Recorded Client Recorded Date Recorded By Document 11/18/18 11:17 RB [id number] 11/18/18 11:19 RB 11/18/18 11:17 Wound Center Nurse 1 [Ulcer Assessment] 1. L scherer -Combined with other wound No -Current Size (cm) - Length 1.6 -Current Size (cm) - Width 0.2 -Current Size (cm) - Depth 0.2 -Total Square Cm 0.32 -Photo Taken No -Tunneling No -Undermining/Tunneling No -Circular Undermining No -Exudate Amt Small -Exudate Type Serosanguineous -Wound Margin Distinct, Outline Attached -Granulation Amt Large (67-100%) -Granulation Quality Thorp -Slough/Fibrin Yes -Necrosis Amt Small (1-33%) -Necrotic Tissue Type Adherent Slough -Structure Exposed N/A -Texture (Stefany-wound Skin Appearance) Assessed -Moisture (Stefany-wound Skin Appearance Assessed ) -Color (Stefany-wound Skin Appearance) Assessed -Temperature (Stefany-wound Skin No Abnormality Appearance) (Pt Warm) -Tenderness on Palpation (Stefany-wound No Skin Appearance) -Ulcer Cleansing Rinsed/ Irrigated with Saline -Foul Odor after Cleansing No -Anesthetic Used 5% Lidocaine Gel [Edema Assessment] -Lower Limb Edema Present Yes -Left Calf (cm) 33.5 -Left Ankle (cm) 22.2 WC - Nurse 2 - General Ulcer CM Notes Start: 11/04/18 10:01 Freq: Status: Active Protocol: Activity Type Activity Date Activity User E-Sign Co-Sign Detail Recorded Client Recorded Date Recorded By Document 11/18/18 11:38 MW [id number] 11/18/18 11:39 MW 11/18/18 11:38 Wound Center Nurse 2 [Procedure/Treatment] 1. L scherer -Time 11:39 -Correct Patient Yes -Correct Side, Site, Position Yes -Correct Procedure Yes -Procedure Performed Yes -Type of Procedure Debridement -Clinical Debridement Subcutaneous -Post Debridement Size (cm) - Length 1.5 -Post Debridement Size (cm) - Width 0.2 -Post Debridement Size (cm) - Depth 0.1 -Total Square Cm 0.30 -Wound/Ulcer Outcome Not Healed -Ulcer Cleansing Rinsed/ Irrigated with Saline -Foul Odor after Cleansing No -Bioengineered Tissue No -Bleeding Controlled with Pressure -Offloading No -Treatment Response Procedure Tolerated Well [See Physician Procedure note for Specifics] Pain Scale: 0-10 Numeric [Pain] -Is Patient Pain Free? Yes Musculoskeletal: No Muscle Wasting Neurological: Cranial nerves II-XII grossly intact Psych/Mental Status: Normal Affect Debridement Note Post-Debridement Measurements/Treatment - Nurse 2 - General Ulcer CM Notes Start: 11/04/18 10:01 Freq: Status: Active Protocol: Activity Type Activity Date Activity User E-Sign Co-Sign Detail Recorded Client Recorded Date Recorded By Document 11/04/18 10:28 MW [id number] 11/04/18 10:30 MW Document 11/11/18 11:07 MW [id number] 11/11/18 11:08 MW Document 11/18/18 11:38 MW [id number] 11/18/18 11:39 MW 11/04/18 11/11/18 11/18/18 10:28 11:07 11:38 Wound Center Nurse 2 1. L scherer -Time 10:28 11:07 11:39 -Correct Patient Yes Yes Yes -Correct Side, Site, Position Yes Yes Yes -Correct Procedure Yes Yes Yes -Procedure Performed Yes Yes Yes -Type of Procedure Debridement Debridement Debridement -Clinical Debridement Subcutaneous Subcutaneous Subcutaneous -Post Debridement Size (cm) - Length 3.0 2.0 1.5 -Post Debridement Size (cm) - Width 0.3 0.2 0.2 -Post Debridement Size (cm) - Depth 0.1 0.2 0.1 -Total Square Cm 0.90 0.40 0.30 -Wound/Ulcer Outcome Not Healed Not Healed Not Healed -Ulcer Cleansing Rinsed/ Rinsed/ Rinsed/ Irrigated with Irrigated with Irrigated with Saline Saline Saline -Foul Odor after Cleansing No No No -Bioengineered Tissue No No No -Bleeding Controlled with Pressure Pressure Pressure -Offloading No No No -Treatment Response Procedure Procedure Procedure Tolerated Well Tolerated Well Tolerated Well Pain Scale: 0-10 Numeric Is Patient Pain Free? Yes Yes Yes Wound debrided: Left lower extremity Wound Grade/Stage: Stage II Type of Debridement: Excisional debridement Anesthesia Used: 4% Lidocaine Solution Depth: Down to and including healthy tissue, in the subcutaneous layer Percentage of wound debrided: 100 Instrument Used: 3mm curette Tissue Removed: Slough and devitalized tissue Severity: Fat Layer Exposed Amount of bleeding with debridement: Mild Bleeding Controlled with: Pressure Patient tolerated procedure well Assessment/Plan Active Problems Open wound of left lower extremity (Acute) Traumatic/penetrating with fat layer exposed. Assessment: Traumatic penetrating left lower extremity wound with fat layer exposed. Plan: Improving however not as quickly. Still has significant edema. Debridement done as documented above. Procedure was well-tolerated. Switch to Pomogram with adaptic over top. Will also switch to 3M wraps. Follow up on friday for a nurse visit. Single layer to the right. Advised to elevate lower extremities when seated in bed. Increased protein intake/supplements also recommended. She was advised to call with any questions or concerns. Follow-up in 1 week. This note was generated with [employer] software. It may contain incorrect words, spelling, and punctuation that were not noted in checking the note before signing.
--- NOTE | 2018-11-18 12:08 | PN.PCM_ITS ---
(1) Open wound of left lower extremity Status: Acute Current Visit: Yes Code(s): S81.802A - Unspecified open wound, left lower leg, initial encounter Comment: Traumatic/penetrating with fat layer exposed. Type of Wound Chief Complaint: Non healing left lower extremity wound. History of Wound: Ms. Garcia is a 73-year-old who was in a stable state of health until about 3 weeks ago when a PET cage fell on her left lower extremity creating a wound. She had been managed by her primary care physician and has applied a silver dressing daily however there has been slow progression in healing. She denies any significant drainage. She also denies chills, fever or feeling of unwell. Progress of Wound: Improving. No new concerns at this time. - Physical Exam Vital Signs Temp Pulse Resp BP 97 F L 72 18 115/60 11/18/18 11:17 11/18/18 11:17 11/18/18 11:17 11/18/18 11:17 General: Alert, Oriented x3, Cooperative, No apparent distress HEENT: Atraumatic, Normocephalic Oral: Moist Mucosa Neck: Supple Lungs: Normal air movement Extremities: No cyanosis, Edema Skin: Ulcer/ Wound Wound Measurements and Assessment WC - Nurse 1 - General Ulcer Measurement Start: 11/04/18 10:01 Freq: Status: Active Protocol: Activity Type Activity Date Activity User E-Sign Co-Sign Detail Recorded Client Recorded Date Recorded By Document 11/18/18 11:17 RB [id number] 11/18/18 11:19 RB 11/18/18 11:17 Wound Center Nurse 1 [Ulcer Assessment] 1. L scherer -Combined with other wound No -Current Size (cm) - Length 1.6 -Current Size (cm) - Width 0.2 -Current Size (cm) - Depth 0.2 -Total Square Cm 0.32 -Photo Taken No -Tunneling No -Undermining/Tunneling No -Circular Undermining No -Exudate Amt Small -Exudate Type Serosanguineous -Wound Margin Distinct, Outline Attached -Granulation Amt Large (67-100%) -Granulation Quality [place] -Slough/Fibrin Yes -Necrosis Amt Small (1-33%) -Necrotic Tissue Type Adherent Slough -Structure Exposed N/A -Texture (Stefany-wound Skin Appearance) Assessed -Moisture (Stefany-wound Skin Appearance Assessed ) -Color (Stefany-wound Skin Appearance) Assessed -Temperature (Stefany-wound Skin No Abnormality Appearance) (Pt Warm) -Tenderness on Palpation (Stefany-wound No Skin Appearance) -Ulcer Cleansing Rinsed/ Irrigated with Saline -Foul Odor after Cleansing No -Anesthetic Used 5% Lidocaine Gel [Edema Assessment] -Lower Limb Edema Present Yes -Left Calf (cm) 33.5 -Left Ankle (cm) 22.2 WC - Nurse 2 - General Ulcer CM Notes Start: 11/04/18 10:01 Freq: Status: Active Protocol: Activity Type Activity Date Activity User E-Sign Co-Sign Detail Recorded Client Recorded Date Recorded By Document 11/18/18 11:38 MW [id number] 11/18/18 11:39 MW 11/18/18 11:38 Wound Center Nurse 2 [Procedure/Treatment] 1. L scherer -Time 11:39 -Correct Patient Yes -Correct Side, Site, Position Yes -Correct Procedure Yes -Procedure Performed Yes -Type of Procedure Debridement -Clinical Debridement Subcutaneous -Post Debridement Size (cm) - Length 1.5 -Post Debridement Size (cm) - Width 0.2 -Post Debridement Size (cm) - Depth 0.1 -Total Square Cm 0.30 -Wound/Ulcer Outcome Not Healed -Ulcer Cleansing Rinsed/ Irrigated with Saline -Foul Odor after Cleansing No -Bioengineered Tissue No -Bleeding Controlled with Pressure -Offloading No -Treatment Response Procedure Tolerated Well [See Physician Procedure note for Specifics] Pain Scale: 0-10 Numeric [Pain] -Is Patient Pain Free? Yes Musculoskeletal: No Muscle Wasting Neurological: Cranial nerves II-XII grossly intact Psych/Mental Status: Normal Affect Debridement Note Post-Debridement Measurements/Treatment - Nurse 2 - General Ulcer CM Notes Start: 11/04/18 10:01 Freq: Status: Active Protocol: Activity Type Activity Date Activity User E-Sign Co-Sign Detail Recorded Client Recorded Date Recorded By Document 11/04/18 10:28 MW [id number] 11/04/18 10:30 MW Document 11/11/18 11:07 MW [id number] 11/11/18 11:08 MW Document 11/18/18 11:38 MW [id number] 11/18/18 11:39 MW 11/04/18 11/11/18 11/18/18 10:28 11:07 11:38 Wound Center Nurse 2 1. L scherer -Time 10:28 11:07 11:39 -Correct Patient Yes Yes Yes -Correct Side, Site, Position Yes Yes Yes -Correct Procedure Yes Yes Yes -Procedure Performed Yes Yes Yes -Type of Procedure Debridement Debridement Debridement -Clinical Debridement Subcutaneous Subcutaneous Subcutaneous -Post Debridement Size (cm) - Length 3.0 2.0 1.5 -Post Debridement Size (cm) - Width 0.3 0.2 0.2 -Post Debridement Size (cm) - Depth 0.1 0.2 0.1 -Total Square Cm 0.90 0.40 0.30 -Wound/Ulcer Outcome Not Healed Not Healed Not Healed -Ulcer Cleansing Rinsed/ Rinsed/ Rinsed/ Irrigated with Irrigated with Irrigated with Saline Saline Saline -Foul Odor after Cleansing No No No -Bioengineered Tissue No No No -Bleeding Controlled with Pressure Pressure Pressure -Offloading No No No -Treatment Response Procedure Procedure Procedure Tolerated Well Tolerated Well Tolerated Well Pain Scale: 0-10 Numeric Is Patient Pain Free? Yes Yes Yes Wound debrided: Left lower extremity Wound Grade/Stage: Stage II Type of Debridement: Excisional debridement Anesthesia Used: 4% Lidocaine Solution Depth: Down to and including healthy tissue, in the subcutaneous layer Percentage of wound debrided: 100 Instrument Used: 3mm curette Tissue Removed: Slough and devitalized tissue Severity: Fat Layer Exposed Amount of bleeding with debridement: Mild Bleeding Controlled with: Pressure Patient tolerated procedure well Assessment/Plan Active Problems Open wound of left lower extremity (Acute) Traumatic/penetrating with fat layer exposed. Assessment: Traumatic penetrating left lower extremity wound with fat layer exposed. Plan: Improving however not as quickly. Still has significant edema. Debridement done as documented above. Procedure was well-tolerated. Switch to Pomogram with adaptic over top. Will also switch to 3M wraps. Follow up on friday for a nurse visit. Single layer to the right. Advised to elevate lower extremities when seated in bed. Increased protein intake/supplements also recommended. She was advised to call with any questions or concerns. Follow-up in 1 week. This note was generated with [employer] software. It may contain incorrect words, spelling, and punctuation that were not noted in checking the note before signing.
[2018-11-20 12:24] VITALS: BP 127/57; PULSE 60; RESP 18; TEMP 36.1; BMI 24.4
[2018-11-25 10:38] VITALS: BP 144/69; PULSE 59; RESP 18; TEMP 36.9; BMI 24.4
--- NOTE | 2018-11-25 11:14 | PCM.WC.PN ---
(1) Open wound of left lower extremity Status: Acute Current Visit: Yes Code(s): S81.802A - Unspecified open wound, left lower leg, initial encounter Comment: Traumatic/penetrating with fat layer exposed. Type of Wound Chief Complaint: Non healing left lower extremity wound. History of Wound: Ms. Garcia is a 73-year-old who was in a stable state of health until about 3 weeks ago when a PET cage fell on her left lower extremity creating a wound. She had been managed by her primary care physician and has applied a silver dressing daily however there has been slow progression in healing. She denies any significant drainage. She also denies chills, fever or feeling of unwell. Progress of Wound: Improving. No new concerns at this time. - Physical Exam Vital Signs Temp Pulse Resp BP 98.4 F 59 L 18 144/69 H 11/25/18 10:38 11/25/18 10:38 11/25/18 10:38 11/25/18 10:38 General: Alert, Oriented x3, Cooperative, No apparent distress HEENT: Atraumatic, Normocephalic Oral: Moist Mucosa Neck: Supple Lungs: Normal air movement Abdomen: Non Tender Extremities: No cyanosis Skin: Ulcer/ Wound Wound Measurements and Assessment WC - Nurse 1 - General Ulcer Measurement Start: 11/04/18 10:01 Freq: Status: Active Protocol: Activity Type Activity Date Activity User E-Sign Co-Sign Detail Recorded Client Recorded Date Recorded By Document 11/25/18 10:38 DL [id number] 11/25/18 10:48 DL 11/25/18 10:38 Wound Center Nurse 1 [Ulcer Assessment] 1. L scherer -Current Size (cm) - Length 1.1 -Current Size (cm) - Width 0.2 -Current Size (cm) - Depth 0.1 -Total Square Cm 0.22 -Photo Taken No -Exudate Amt None Present -Wound Margin Flat & Intact -Granulation Amt Small (1-33%) -Granulation Quality [place] -Necrosis Amt Small (1-33%) -Necrotic Tissue Type Adherent Slough -Texture (Stefany-wound Skin Appearance) Scarring -Moisture (Stefany-wound Skin Appearance No Abnormality ) -Color (Stefany-wound Skin Appearance) No Abnormality -Temperature (Stefany-wound Skin No Abnormality Appearance) (Pt Warm) -Tenderness on Palpation (Stefany-wound No Skin Appearance) -Ulcer Cleansing Wound Cleanser -Foul Odor after Cleansing No -Anesthetic Used 4% Lidocaine Solution [Edema Assessment] -Left Calf (cm) 30.5 -Left Ankle (cm) 20.5 WC - Nurse 2 - General Ulcer CM Notes Start: 11/04/18 10:01 Freq: Status: Active Protocol: Activity Type Activity Date Activity User E-Sign Co-Sign Detail Recorded Client Recorded Date Recorded By Document 11/25/18 11:10 MW [id number] 11/25/18 11:13 MW 11/25/18 11:10 Wound Center Nurse 2 [Procedure/Treatment] 1. L scherer -Time 11:10 -Correct Patient Yes -Correct Side, Site, Position Yes -Correct Procedure Yes -Procedure Performed No -Type of Procedure Debridement -Clinical Debridement Selective -Post Debridement Size (cm) - Length 1.0 -Post Debridement Size (cm) - Width 0.2 -Post Debridement Size (cm) - Depth 0.1 -Total Square Cm 0.20 -Wound/Ulcer Outcome Not Healed -Ulcer Cleansing Rinsed/ Irrigated with Saline -Foul Odor after Cleansing No -Bioengineered Tissue No -Bleeding Controlled with Pressure -Offloading No -Treatment Response Procedure Tolerated Well [See Physician Procedure note for Specifics] Pain Scale: 0-10 Numeric [Pain] -Is Patient Pain Free? Yes Musculoskeletal: No Muscle Wasting Neurological: Cranial nerves II-XII grossly intact Psych/Mental Status: Normal Affect Debridement Note Post-Debridement Measurements/Treatment WC - Nurse 2 - General Ulcer CM Notes Start: 11/04/18 10:01 Freq: Status: Active Protocol: Activity Type Activity Date Activity User E-Sign Co-Sign Detail Recorded Client Recorded Date Recorded By Document 11/04/18 10:28 MW [id number] 11/04/18 10:30 MW Document 11/11/18 11:07 MW [id number] 11/11/18 11:08 MW Document 11/18/18 11:38 MW [id number] 11/18/18 11:39 MW Document 11/25/18 11:10 MW [id number] 11/25/18 11:13 MW 11/04/18 11/11/18 11/18/18 10:28 11:07 11:38 Wound Center Nurse 2 1. L scherer -Time 10:28 11:07 11:39 -Correct Patient Yes Yes Yes -Correct Side, Site, Position Yes Yes Yes -Correct Procedure Yes Yes Yes -Procedure Performed Yes Yes Yes -Type of Procedure Debridement Debridement Debridement -Clinical Debridement Subcutaneous Subcutaneous Subcutaneous -Post Debridement Size (cm) - Length 3.0 2.0 1.5 -Post Debridement Size (cm) - Width 0.3 0.2 0.2 -Post Debridement Size (cm) - Depth 0.1 0.2 0.1 -Total Square Cm 0.90 0.40 0.30 -Wound/Ulcer Outcome Not Healed Not Healed Not Healed -Ulcer Cleansing Rinsed/ Rinsed/ Rinsed/ Irrigated with Irrigated with Irrigated with Saline Saline Saline -Foul Odor after Cleansing No No No -Bioengineered Tissue No No No -Bleeding Controlled with Pressure Pressure Pressure -Offloading No No No -Treatment Response Procedure Procedure Procedure Tolerated Well Tolerated Well Tolerated Well Pain Scale: 0-10 Numeric Is Patient Pain Free? Yes Yes Yes 11/25/18 11:10 Wound Center Nurse 2 1. L scherer -Time 11:10 -Correct Patient Yes -Correct Side, Site, Position Yes -Correct Procedure Yes -Procedure Performed No -Type of Procedure Debridement -Clinical Debridement Selective -Post Debridement Size (cm) - Length 1.0 -Post Debridement Size (cm) - Width 0.2 -Post Debridement Size (cm) - Depth 0.1 -Total Square Cm 0.20 -Wound/Ulcer Outcome Not Healed -Ulcer Cleansing Rinsed/ Irrigated with Saline -Foul Odor after Cleansing No -Bioengineered Tissue No -Bleeding Controlled with Pressure -Offloading No -Treatment Response Procedure Tolerated Well Pain Scale: 0-10 Numeric Is Patient Pain Free? Yes Wound debrided: Left lower extremity Wound Grade/Stage: Stage II Type of Debridement: Selective debridement Anesthesia Used: 4% Lidocaine Solution Depth: Down to and including healthy tissue, in the subcutaneous layer Percentage of wound debrided: 100 Instrument Used: 3mm curette Tissue Removed: Slough and devitalized tissue Severity: Fat Layer Exposed Amount of bleeding with debridement: Mild Bleeding Controlled with: Pressure Patient tolerated procedure well Assessment/Plan Active Problems Open wound of left lower extremity (Acute) Traumatic/penetrating with fat layer exposed. Assessment: Traumatic penetrating left lower extremity wound with fat layer exposed. Plan: Improving. No new concerns at this time. Tolerated the 3M wraps. Debridement done as documented above. Procedure was well-tolerated. Continue Pomogram with adaptic over top. Continue 3M wraps. Leave on for a week. Advised to elevate lower extremities when seated in bed. Increased protein intake/supplements also recommended. She was advised to call with any questions or concerns. Follow-up in 1 week. This note was generated with [employer] dictation software. It may contain incorrect words, spelling, and punctuation that were not noted in checking the note before signing.
--- NOTE | 2018-11-25 11:18 | PN.PCM_ITS ---
(1) Open wound of left lower extremity Status: Acute Current Visit: Yes Code(s): S81.802A - Unspecified open wound, left lower leg, initial encounter Comment: Traumatic/penetrating with fat layer exposed. Type of Wound Chief Complaint: Non healing left lower extremity wound. History of Wound: Ms. Garcia is a 73-year-old who was in a stable state of health until about 3 weeks ago when a PET cage fell on her left lower extremity creating a wound. She had been managed by her primary care physician and has applied a silver dressing daily however there has been slow progression in healing. She denies any significant drainage. She also denies chills, fever or feeling of unwell. Progress of Wound: Improving. No new concerns at this time. - Physical Exam Vital Signs Temp Pulse Resp BP 98.4 F 59 L 18 144/69 H 11/25/18 10:38 11/25/18 10:38 11/25/18 10:38 11/25/18 10:38 General: Alert, Oriented x3, Cooperative, No apparent distress HEENT: Atraumatic, Normocephalic Oral: Moist Mucosa Neck: Supple Lungs: Normal air movement Abdomen: Non Tender Extremities: No cyanosis Skin: Ulcer/ Wound Wound Measurements and Assessment WC - Nurse 1 - General Ulcer Measurement Start: 11/04/18 10:01 Freq: Status: Active Protocol: Activity Type Activity Date Activity User E-Sign Co-Sign Detail Recorded Client Recorded Date Recorded By Document 11/25/18 10:38 DL [id number] 11/25/18 10:48 DL 11/25/18 10:38 Wound Center Nurse 1 [Ulcer Assessment] 1. L scherer -Current Size (cm) - Length 1.1 -Current Size (cm) - Width 0.2 -Current Size (cm) - Depth 0.1 -Total Square Cm 0.22 -Photo Taken No -Exudate Amt None Present -Wound Margin Flat & Intact -Granulation Amt Small (1-33%) -Granulation Quality [place] -Necrosis Amt Small (1-33%) -Necrotic Tissue Type Adherent Slough -Texture (Stefany-wound Skin Appearance) Scarring -Moisture (Stefany-wound Skin Appearance No Abnormality ) -Color (Stefany-wound Skin Appearance) No Abnormality -Temperature (Stefany-wound Skin No Abnormality Appearance) (Pt Warm) -Tenderness on Palpation (Stefany-wound No Skin Appearance) -Ulcer Cleansing Wound Cleanser -Foul Odor after Cleansing No -Anesthetic Used 4% Lidocaine Solution [Edema Assessment] -Left Calf (cm) 30.5 -Left Ankle (cm) 20.5 WC - Nurse 2 - General Ulcer CM Notes Start: 11/04/18 10:01 Freq: Status: Active Protocol: Activity Type Activity Date Activity User E-Sign Co-Sign Detail Recorded Client Recorded Date Recorded By Document 11/25/18 11:10 MW [id number] 11/25/18 11:13 MW 11/25/18 11:10 Wound Center Nurse 2 [Procedure/Treatment] 1. L scherer -Time 11:10 -Correct Patient Yes -Correct Side, Site, Position Yes -Correct Procedure Yes -Procedure Performed No -Type of Procedure Debridement -Clinical Debridement Selective -Post Debridement Size (cm) - Length 1.0 -Post Debridement Size (cm) - Width 0.2 -Post Debridement Size (cm) - Depth 0.1 -Total Square Cm 0.20 -Wound/Ulcer Outcome Not Healed -Ulcer Cleansing Rinsed/ Irrigated with Saline -Foul Odor after Cleansing No -Bioengineered Tissue No -Bleeding Controlled with Pressure -Offloading No -Treatment Response Procedure Tolerated Well [See Physician Procedure note for Specifics] Pain Scale: 0-10 Numeric [Pain] -Is Patient Pain Free? Yes Musculoskeletal: No Muscle Wasting Neurological: Cranial nerves II-XII grossly intact Psych/Mental Status: Normal Affect Debridement Note Post-Debridement Measurements/Treatment WC - Nurse 2 - General Ulcer CM Notes Start: 11/04/18 10:01 Freq: Status: Active Protocol: Activity Type Activity Date Activity User E-Sign Co-Sign Detail Recorded Client Recorded Date Recorded By Document 11/04/18 10:28 MW [id number] 11/04/18 10:30 MW Document 11/11/18 11:07 MW [id number] 11/11/18 11:08 MW Document 11/18/18 11:38 MW [id number] 11/18/18 11:39 MW Document 11/25/18 11:10 MW [id number] 11/25/18 11:13 MW 11/04/18 11/11/18 11/18/18 10:28 11:07 11:38 Wound Center Nurse 2 1. L scherer -Time 10:28 11:07 11:39 -Correct Patient Yes Yes Yes -Correct Side, Site, Position Yes Yes Yes -Correct Procedure Yes Yes Yes -Procedure Performed Yes Yes Yes -Type of Procedure Debridement Debridement Debridement -Clinical Debridement Subcutaneous Subcutaneous Subcutaneous -Post Debridement Size (cm) - Length 3.0 2.0 1.5 -Post Debridement Size (cm) - Width 0.3 0.2 0.2 -Post Debridement Size (cm) - Depth 0.1 0.2 0.1 -Total Square Cm 0.90 0.40 0.30 -Wound/Ulcer Outcome Not Healed Not Healed Not Healed -Ulcer Cleansing Rinsed/ Rinsed/ Rinsed/ Irrigated with Irrigated with Irrigated with Saline Saline Saline -Foul Odor after Cleansing No No No -Bioengineered Tissue No No No -Bleeding Controlled with Pressure Pressure Pressure -Offloading No No No -Treatment Response Procedure Procedure Procedure Tolerated Well Tolerated Well Tolerated Well Pain Scale: 0-10 Numeric Is Patient Pain Free? Yes Yes Yes 11/25/18 11:10 Wound Center Nurse 2 1. L scherer -Time 11:10 -Correct Patient Yes -Correct Side, Site, Position Yes -Correct Procedure Yes -Procedure Performed No -Type of Procedure Debridement -Clinical Debridement Selective -Post Debridement Size (cm) - Length 1.0 -Post Debridement Size (cm) - Width 0.2 -Post Debridement Size (cm) - Depth 0.1 -Total Square Cm 0.20 -Wound/Ulcer Outcome Not Healed -Ulcer Cleansing Rinsed/ Irrigated with Saline -Foul Odor after Cleansing No -Bioengineered Tissue No -Bleeding Controlled with Pressure -Offloading No -Treatment Response Procedure Tolerated Well Pain Scale: 0-10 Numeric Is Patient Pain Free? Yes Wound debrided: Left lower extremity Wound Grade/Stage: Stage II Type of Debridement: Selective debridement Anesthesia Used: 4% Lidocaine Solution Depth: Down to and including healthy tissue, in the subcutaneous layer Percentage of wound debrided: 100 Instrument Used: 3mm curette Tissue Removed: Slough and devitalized tissue Severity: Fat Layer Exposed Amount of bleeding with debridement: Mild Bleeding Controlled with: Pressure Patient tolerated procedure well Assessment/Plan Active Problems Open wound of left lower extremity (Acute) Traumatic/penetrating with fat layer exposed. Assessment: Traumatic penetrating left lower extremity wound with fat layer exposed. Plan: Improving. No new concerns at this time. Tolerated the 3M wraps. Debridement done as documented above. Procedure was well-tolerated. Continue Pomogram with adaptic over top. Continue 3M wraps. Leave on for a week. Advised to elevate lower extremities when seated in bed. Increased protein intake/supplements also recommended. She was advised to call with any questions or concerns. Follow-up in 1 week. This note was generated with [employer] software. It may contain incorrect words, spelling, and punctuation that were not noted in checking the note before signing.
== END 2018-12-01 23:59 ==
LOC: WC 10:30
PROVIDERS: Family Provider Family Medicine; PCP Family Medicine; Visit Provider Internal Medicine
DX: S81.832A Puncture wound without foreign body, left lower leg, initial encounter (principal); W22.8XXA Striking against or struck by other objects, initial encounter
CPT/HCPCS: 11042; 29581; 97597; 99212; G0463

== ENCOUNTER 2018-12-03 10:11 | Outpatient (RCR) | payer OTHER, MEDICARE, SELFPAY ==
[2018-12-02 01:40] VITALS: BP 144/69; PULSE 59; RESP 18; TEMP 36.9
[2018-12-03 10:12] VITALS: BP 136/68; PULSE 68; RESP 18; TEMP 36.7; BMI 24.4
--- NOTE | 2018-12-03 10:28 | PCM.WC.PN ---
(1) Open wound of left lower extremity Status: Acute Current Visit: No Code(s): S81.802A - Unspecified open wound, left lower leg, initial encounter Comment: Traumatic/penetrating with fat layer exposed. Type of Wound Chief Complaint: Non healing left lower extremity wound. History of Wound: Ms. Garcia is a 73-year-old who was in a stable state of health until about 3 weeks ago when a PET cage fell on her left lower extremity creating a wound. She had been managed by her primary care physician and has applied a silver dressing daily however there has been slow progression in healing. She denies any significant drainage. She also denies chills, fever or feeling of unwell. Progress of Wound: Healed. - Physical Exam Vital Signs Temp Pulse Resp BP 98.0 F 68 18 136/68 H 12/03/18 10:12 12/03/18 10:12 12/03/18 10:12 12/03/18 10:12 General: Alert, Oriented x3, Cooperative, No apparent distress HEENT: Atraumatic, Normocephalic Oral: Moist Mucosa Neck: Supple Lungs: Normal air movement Abdomen: Non Tender Extremities: No cyanosis Wound Measurements and Assessment WC - Nurse 1 - General Ulcer Measurement Start: 12/03/18 10:12 Freq: Status: Active Protocol: Activity Type Activity Date Activity User E-Sign Co-Sign Detail Recorded Client Recorded Date Recorded By Document 12/03/18 10:12 WI [id number] 12/03/18 10:20 WI 12/03/18 10:12 Wound Center Nurse 1 [Ulcer Assessment] 1. L scherer -Current Size (cm) - Length 0.1 -Current Size (cm) - Width 0.1 -Current Size (cm) - Depth 0.1 -Total Square Cm 0.01 [Edema Assessment] -Left Calf (cm) 31 -Left Ankle (cm) 21.5 Musculoskeletal: No Muscle Wasting Neurological: Cranial nerves II-XII grossly intact Psych/Mental Status: Normal Affect Debridement Note No debridement was completed today Assessment/Plan Assessment: Traumatic penetrating left lower extremity wound with fat layer exposed. Plan: Healed. No new concerns at this time. Adaptic over top daily for 1 week. Continue Tubi extract operator daily for edema management. Advised to elevate lower extremities when seated and in bed. Increased protein intake/supplements also recommended. She was advised to call with any questions or concerns. Discharged from the wound center. This note was generated with [employer] dictation software. It may contain incorrect words, spelling, and punctuation that were not noted in checking the note before signing.
--- NOTE | 2018-12-03 10:31 | PN.PCM_ITS ---
(1) Open wound of left lower extremity Status: Acute Current Visit: No Code(s): S81.802A - Unspecified open wound, left lower leg, initial encounter Comment: Traumatic/penetrating with fat layer exposed. Type of Wound Chief Complaint: Non healing left lower extremity wound. History of Wound: Ms. Garcia is a 73-year-old who was in a stable state of health until about 3 weeks ago when a PET cage fell on her left lower extremity creating a wound. She had been managed by her primary care physician and has applied a silver dressing daily however there has been slow progression in healing. She denies any significant drainage. She also denies chills, fever or feeling of unwell. Progress of Wound: Healed. - Physical Exam Vital Signs Temp Pulse Resp BP 98.0 F 68 18 136/68 H 12/03/18 10:12 12/03/18 10:12 12/03/18 10:12 12/03/18 10:12 General: Alert, Oriented x3, Cooperative, No apparent distress HEENT: Atraumatic, Normocephalic Oral: Moist Mucosa Neck: Supple Lungs: Normal air movement Abdomen: Non Tender Extremities: No cyanosis Wound Measurements and Assessment WC - Nurse 1 - General Ulcer Measurement Start: 12/03/18 10:12 Freq: Status: Active Protocol: Activity Type Activity Date Activity User E-Sign Co-Sign Detail Recorded Client Recorded Date Recorded By Document 12/03/18 10:12 UT [id number] 12/03/18 10:20 UT 12/03/18 10:12 Wound Center Nurse 1 [Ulcer Assessment] 1. L scherer -Current Size (cm) - Length 0.1 -Current Size (cm) - Width 0.1 -Current Size (cm) - Depth 0.1 -Total Square Cm 0.01 [Edema Assessment] -Left Calf (cm) 31 -Left Ankle (cm) 21.5 Musculoskeletal: No Muscle Wasting Neurological: Cranial nerves II-XII grossly intact Psych/Mental Status: Normal Affect Debridement Note No debridement was completed today Assessment/Plan Assessment: Traumatic penetrating left lower extremity wound with fat layer exposed. Plan: Healed. No new concerns at this time. Adaptic over top daily for 1 week. Continue Tubi hazardous waste remover daily for edema management. Advised to elevate lower extremities when seated and in bed. Increased protein intake/supplements also recommended. She was advised to call with any questions or concerns. Discharged from the wound center. This note was generated with [employer] dictation software. It may contain incorrect words, spelling, and punctuation that were not noted in checking the note before signing.
== END 2019-01-01 23:59 ==
LOC: WC 10:11
PROVIDERS: Family Provider Family Medicine; PCP Family Medicine; Visit Provider Internal Medicine
DX: Z09 Encounter for follow-up examination after completed treatment for conditions other than malignant neoplasm (principal)
CPT/HCPCS: 99213; G0463

== ENCOUNTER → 2018-12-29 | Outpatient (CLI) | payer MEDICARE, OTHER, SELFPAY ==
[2018-12-03 10:12] VITALS: BMI 24.4
[2018-12-29 17:48] LABS: Absolute Lymphocyte Count 1.78 X10^3/ul (0.83-4.51); Absolute Neutrophil Count 3.7 X10^3/uL (2.0-7.7); Basophil# 0.03 X10^3/uL; Basophil% 0.5 % (0-1); Eosinophil# 0.16 X10^3/uL; Eosinophils% 2.6 % (0-5); Hematocrit 32.1 % (37-47); Hemoglobin 10.6 g/dl (12.0-15.0); Lymphocyte # 1.78 X10^3/ul (4.0); Lymphocyte % 28.7 % (19-41); Mean Corpuscular Hgb 30.4 pg (27.0-32.0); Mean Platelet Vol. 9.9 fl (6.2-12.0); Monocyte# 0.53 X10^3/uL; Monocyte% 8.5 % (0-10); Neutrophil # 3.68 X10^3/uL (2.7-7.7); Neutrophil % 59.4 % (47-70); POSITIVE COUNT NO; POSITIVE DIFFERENTIAL NO; POSITIVE MORPHOLOGY NO; Platelet Count 357 K/mm3 (150-450); RBC Distribution Width CV 16.1 % (11.6-14.6); RBC Distribution Width SD 52.2 fl (35.1-43.9); Red Blood Count 3.49 M/mm3 (4.2-5.4); White Blood Count 6.2 K/mm3 (4.4-11.0)
[2018-12-29 18:04] LABS: ALB/GLOB Ratio 0.9 RATIO (0.9-2.4); AST(SGOT) 21 U/L (15-37); Alanine Aminotransfer ALT/SGPT 21 U/L (13-56); Albumin, Serum 3.5 g/dL (3.2-5.0); Alkaline Phosphatase 104 U/L (45-117); Anion Gap 10 (5-15); BUN 23 mg/dL (7-18); BUN/Creat Ratio 23.5 RATIO (10-20); Chloride 108 mmol/L (98-107); Creatinine, Serum 0.98 mg/dL (0.55-1.02); EST Glomerular Filtration Rate 59 mL/min (>60); Est Glom Filt Rate - Afr Amer 72 mL/min (>60); Globulin 3.8 g/dL (2.2-4.2); Glucose 85 mg/dL (74-106); Potassium 4.3 mmol/L (3.5-5.1); Protein, Total 7.3 g/dL (6.4-8.2); Sodium Level 140 mmol/L (136-145)
== END | disposition home or self-care (01) ==
LOC: MTLAB 15:00
PROVIDERS: Family Provider Family Medicine; PCP Family Medicine; Referring Provider Internal Medicine Rheumatology; Visit Provider Internal Medicine Rheumatology
DX: M06.4 Inflammatory polyarthropathy (principal); Z79.899 Other long term (current) drug therapy; M15.9 Polyosteoarthritis, unspecified; M17.0 Bilateral primary osteoarthritis of knee; M21.40 Flat foot [pes planus] (acquired), unspecified foot; M19.172 Post-traumatic osteoarthritis, left ankle and foot; M48.061 Spinal stenosis, lumbar region without neurogenic claudication; E11.9 Type 2 diabetes mellitus without complications; G25.81 Restless legs syndrome
CPT/HCPCS: 36415; 80053; 85025

== ENCOUNTER → 2019-04-09 15:00 | Outpatient (CLI) | payer MEDICARE, OTHER, SELFPAY ==
[2019-04-09 17:42] LABS: Absolute Lymphocyte Count 0.91 X10^3/uL (0.83-4.51); Absolute Neutrophil Count 3.7 X10^3/uL (2.0-7.7); Basophil# 0.02 X10^3/uL; Basophil% 0.4 % (0-1); Eosinophil# 0.08 X10^3/uL; Eosinophils% 1.6 % (0-5); Hematocrit 29.8 % (37-47); Hemoglobin 9.5 g/dL (12.0-15.0); Lymphocyte # 0.91 X10^3/ul (4.0); Mean Corp Hgb Conc 31.9 g/dL (32-36); Mean Corpuscular Hgb 31.5 pg (27.0-32.0); Mean Corpuscular Volume 98.7 fL (81-99); Mean Platelet Vol. 10.1 fl (6.2-12.0); Monocyte# 0.31 X10^3/uL; Monocyte% 6.1 % (0-10); NRBC Flagged by Analyzer 0 % (0-5); Neutrophil # 3.71 X10^3/uL (2.7-7.7); Neutrophil % 73.3 % (47-70); Platelet Count 233 K/mm3 (150-450); RBC Distribution Width CV 13.2 % (11.6-14.6); RBC Distribution Width SD 46.5 fl (35.1-43.9); Red Blood Count 3.02 M/mm3 (4.2-5.4); White Blood Count 5.1 K/mm3 (4.4-11.0)
[2019-04-09 18:01] LABS: ALB/GLOB Ratio 0.9 RATIO (0.9-2.4); AST(SGOT) 15 U/L (15-37); Alanine Aminotransfer ALT/SGPT 22 U/L (13-56); Albumin, Serum 3.1 g/dL (3.2-5.0); Alkaline Phosphatase 85 U/L (45-117); Anion Gap 10 (5-15); BUN 39 mg/dL (7-18); BUN/Creat Ratio 31.7 RATIO (10-20); Calcium,Total 8.6 mg/dL (8.5-10.1); Chloride 107 mmol/L (98-107); Creatinine, Serum 1.23 mg/dL (0.55-1.02); EST Glomerular Filtration Rate 46 mL/min (>60); Est Glom Filt Rate - Afr Amer 55 mL/min (>60); Globulin 3.3 g/dL (2.2-4.2); Glucose 218 mg/dL (74-106); Potassium 4.4 mmol/L (3.5-5.1); Protein, Total 6.4 g/dL (6.4-8.2); Sodium Level 141 mmol/L (136-145)
== END ==
PROVIDERS: Family Provider Family Medicine; PCP Family Medicine; Referring Provider Internal Medicine Rheumatology; Visit Provider Internal Medicine Rheumatology
DX: M06.4 Inflammatory polyarthropathy (principal); Z79.899 Other long term (current) drug therapy; M15.9 Polyosteoarthritis, unspecified; M17.0 Bilateral primary osteoarthritis of knee; M21.40 Flat foot [pes planus] (acquired), unspecified foot; M19.172 Post-traumatic osteoarthritis, left ankle and foot; M48.061 Spinal stenosis, lumbar region without neurogenic claudication; E11.9 Type 2 diabetes mellitus without complications; G25.81 Restless legs syndrome
CPT/HCPCS: 36415; 80053; 85025

== ENCOUNTER → 2019-04-29 10:10 | Outpatient (CLI) | payer MEDICARE, OTHER, SELFPAY ==
[2019-04-29 12:10] LABS: Absolute Lymphocyte Count 1.64 X10^3/uL (0.83-4.51); Absolute Neutrophil Count 7.6 X10^3/uL (2.0-7.7); Basophil# 0.05 X10^3/uL; Basophil% 0.5 % (0-1); Eosinophil# 0.15 X10^3/uL; Eosinophils% 1.4 % (0-5); Hematocrit 30.7 % (37-47); Hemoglobin 10.1 g/dL (12.0-15.0); Lymphocyte # 1.64 X10^3/ul (4.0); Lymphocyte % 15.8 % (19-41); Mean Corp Hgb Conc 32.9 g/dL (32-36); Mean Corpuscular Hgb 31.5 pg (27.0-32.0); Mean Corpuscular Volume 95.6 fL (81-99); Mean Platelet Vol. 10.3 fl (6.2-12.0); Monocyte# 0.91 X10^3/uL; Monocyte% 8.8 % (0-10); NRBC Flagged by Analyzer 0 % (0-5); Neutrophil # 7.56 X10^3/uL (2.7-7.7); Neutrophil % 72.6 % (47-70); Platelet Count 297 K/mm3 (150-450); RBC Distribution Width CV 13.8 % (11.6-14.6); RBC Distribution Width SD 48.6 fl (35.1-43.9); Red Blood Count 3.21 M/mm3 (4.2-5.4); White Blood Count 10.4 K/mm3 (4.4-11.0)
[2019-04-29 12:16] LABS: Erythrocyte Sedimentation Rate 9 mm/hr (0-30)
[2019-04-29 12:35] LABS: AST(SGOT) 18 U/L (15-37); Alanine Aminotransfer ALT/SGPT 28 U/L (13-56); Albumin, Serum 3.1 g/dL (3.2-5.0); Alkaline Phosphatase 83 U/L (45-117); Anion Gap 9 (5-15); BUN 20 mg/dL (7-18); BUN/Creat Ratio 18.7 RATIO (10-20); CRP < 2.90 mg/L (0.0-3.0); Calcium,Total 8.3 mg/dL (8.5-10.1); Chloride 108 mmol/L (98-107); Creatinine, Serum 1.07 mg/dL (0.55-1.02); EST Glomerular Filtration Rate 53 mL/min (>60); Est Glom Filt Rate - Afr Amer 65 mL/min (>60); Ferritin 38 ng/mL (8-252); Globulin 3.2 g/dL (2.2-4.2); Glucose 251 mg/dL (74-106); Iron 83 ug/dL (50-170); Potassium 4.5 mmol/L (3.5-5.1); Protein, Total 6.3 g/dL (6.4-8.2); Sodium Level 137 mmol/L (136-145); Thyroid Stim Hormone (TSH) 0.92 uIU/mL (0.358-3.74)
[2019-04-29 12:54] LABS: Vitamin B12 250 pg/mL (211-911)
== END ==
PROVIDERS: Family Provider Family Medicine; PCP Family Medicine; Visit Provider Family Medicine
DX: R19.7 Diarrhea, unspecified (principal); D64.9 Anemia, unspecified; R53.83 Other fatigue; E11.22 Type 2 diabetes mellitus with diabetic chronic kidney disease; N18.3 Chronic kidney disease, stage 3 (moderate); D53.9 Nutritional anemia, unspecified; E53.8 Deficiency of other specified B group vitamins; E55.9 Vitamin D deficiency, unspecified
CPT/HCPCS: 36415; 80053; 82607; 82728; 83540; 84443; 85025; 85652; 86140

== ENCOUNTER → 2019-05-07 12:48 | Outpatient (CLI) | payer MEDICARE, OTHER, SELFPAY ==
[2019-05-07 14:22] LABS: Absolute Lymphocyte Count 1.74 X10^3/uL (0.83-4.51); Absolute Neutrophil Count 5.1 X10^3/uL (2.0-7.7); Basophil# 0.05 X10^3/uL; Basophil% 0.6 % (0-1); Eosinophils% 1.3 % (0-5); Hematocrit 32.5 % (37-47); Hemoglobin 10.6 g/dL (12.0-15.0); Lymphocyte # 1.74 X10^3/ul (4.0); Lymphocyte % 22.6 % (19-41); Mean Corp Hgb Conc 32.6 g/dL (32-36); Mean Corpuscular Hgb 31.2 pg (27.0-32.0); Mean Corpuscular Volume 95.6 fL (81-99); Mean Platelet Vol. 9.9 fl (6.2-12.0); Monocyte# 0.69 X10^3/uL; Monocyte% 8.9 % (0-10); NRBC Flagged by Analyzer 0 % (0-5); Neutrophil % 66.2 % (47-70); Platelet Count 247 K/mm3 (150-450); RBC Distribution Width CV 13.6 % (11.6-14.6); RBC Distribution Width SD 47.6 fl (35.1-43.9); White Blood Count 7.7 K/mm3 (4.4-11.0)
[2019-05-07 15:04] LABS: ALB/GLOB Ratio 1.1 RATIO (0.9-2.4); AST(SGOT) 41 U/L (15-37); Alanine Aminotransfer ALT/SGPT 57 U/L (13-56); Albumin, Serum 3.2 g/dL (3.2-5.0); Alkaline Phosphatase 97 U/L (45-117); Anion Gap 6 (5-15); BUN 20 mg/dL (7-18); BUN/Creat Ratio 22.9 RATIO (10-20); Calcium,Total 8.5 mg/dL (8.5-10.1); Chloride 109 mmol/L (98-107); Creatinine, Serum 0.87 mg/dL (0.55-1.02); EST Glomerular Filtration Rate 68 mL/min (>60); Est Glom Filt Rate - Afr Amer 82 mL/min (>60); Glucose 121 mg/dL (74-106); Potassium 3.9 mmol/L (3.5-5.1); Protein, Total 6.2 g/dL (6.4-8.2); Sodium Level 141 mmol/L (136-145)
== END ==
PROVIDERS: Family Provider Family Medicine; PCP Family Medicine; Referring Provider Internal Medicine Rheumatology; Visit Provider Internal Medicine Rheumatology
DX: M06.4 Inflammatory polyarthropathy (principal); Z79.899 Other long term (current) drug therapy; M15.9 Polyosteoarthritis, unspecified; M25.561 Pain in right knee; M17.0 Bilateral primary osteoarthritis of knee
CPT/HCPCS: 36415; 80053; 85025

== ENCOUNTER → 2019-06-21 16:13 | Outpatient (CLI) | payer MEDICARE, OTHER, SELFPAY ==
--- NOTE | 2019-06-21 16:29 | RAD_ITS ---
HISTORY: PAIN IN LEFT HIP AFTER A FALL. ADDITIONAL HISTORY: None provided. TECHNIQUE: AP and lateral views of the left hip with AP pelvis Number of images including paperwork: 4 COMPARISON: Pelvis 06/24/2018 FINDINGS: BONES: No acute fracture. Old right pubic ramus fractures again seen. Mineralization appears decreased. JOINTS: No subluxation. Mild joint space narrowing of the hips. Mild degenerative changes of the sacroiliac joints. SOFT TISSUES: No distinct foreign body. Vascular calcifications. Lumbosacral hardware L4-S1. RAD/HIP, UNI W/ Pelvis 2-3 Views IMPRESSION: Degenerative changes without acute osseous abnormality. at 2313 Reported and signed by: Moira Fortune MD Electronically Signed: Moira Fortune MD at 23:13 EST Tel , Service support ,
== END ==
PROVIDERS: Family Provider Family Medicine; PCP Family Medicine; Referring Provider Family Medicine; Visit Provider Family Medicine
DX: M25.552 Pain in left hip (principal); W19.XXXA Unspecified fall, initial encounter; M06.9 Rheumatoid arthritis, unspecified
CPT/HCPCS: 73502

== ENCOUNTER → 2019-07-12 13:56 | Outpatient (CLI) | payer MEDICARE, OTHER, SELFPAY ==
[2019-07-12 14:32] LABS: Absolute Neutrophil Count 4.3 X10^3/uL (2.0-7.7); Basophil# 0.05 X10^3/uL; Basophil% 0.8 % (0-1); Eosinophil# 0.19 X10^3/uL; Eosinophils% 3.1 % (0-5); Hematocrit 33.1 % (37-47); Hemoglobin 10.9 g/dL (12.0-15.0); Lymphocyte % 16.4 % (19-41); Mean Corp Hgb Conc 32.9 g/dL (32-36); Mean Corpuscular Volume 91.2 fL (81-99); Mean Platelet Vol. 9.9 fl (6.2-12.0); Monocyte# 0.48 X10^3/uL; Monocyte% 7.9 % (0-10); NRBC Flagged by Analyzer 0 % (0-5); Neutrophil # 4.34 X10^3/uL (2.7-7.7); Neutrophil % 71.5 % (47-70); Platelet Count 347 K/mm3 (150-450); RBC Distribution Width CV 11.8 % (11.6-14.6); RBC Distribution Width SD 39.3 fl (35.1-43.9); Red Blood Count 3.63 M/mm3 (4.2-5.4); White Blood Count 6.1 K/mm3 (4.4-11.0)
[2019-07-12 15:55] LABS: Anion Gap 5 (5-15); BUN 56 mg/dL (7-18); BUN/Creat Ratio 32.6 RATIO (10-20); Chloride 86 mmol/L (98-107); Creatinine, Serum 1.72 mg/dL (0.55-1.02); EST Glomerular Filtration Rate 31 mL/min (>60); Est Glom Filt Rate - Afr Amer 37 mL/min (>60); Glucose 411 mg/dL (74-106); Potassium 3.9 mmol/L (3.5-5.1); Sodium Level 127 mmol/L (136-145)
== END ==
PROVIDERS: Family Provider Family Medicine; PCP Family Medicine; Visit Provider Family Medicine
DX: R60.9 Edema, unspecified (principal); L97.909 Non-pressure chronic ulcer of unspecified part of unspecified lower leg with unspecified severity
CPT/HCPCS: 36415; 80048; 85025

== ENCOUNTER → 2019-07-19 15:09 | Outpatient (CLI) | payer MEDICARE, OTHER, SELFPAY ==
[2019-07-19 17:18] LABS: Anion Gap 7 (5-15); BUN 49 mg/dL (7-18); BUN/Creat Ratio 35.8 RATIO (10-20); Calcium,Total 8.7 mg/dL (8.5-10.1); Chloride 99 mmol/L (98-107); Creatinine, Serum 1.37 mg/dL (0.55-1.02); EST Glomerular Filtration Rate 40 mL/min (>60); Est Glom Filt Rate - Afr Amer 49 mL/min (>60); Glucose 125 mg/dL (74-106); Potassium 4.7 mmol/L (3.5-5.1); Sodium Level 136 mmol/L (136-145)
== END ==
PROVIDERS: Family Provider Family Medicine; PCP Family Medicine; Visit Provider Family Medicine
DX: N18.3 Chronic kidney disease, stage 3 (moderate) (principal)
CPT/HCPCS: 36415; 80048

== ENCOUNTER → 2019-08-09 14:52 | Outpatient (CLI) | payer MEDICARE, SELFPAY ==
[2019-08-09 17:28] LABS: Anion Gap 4 (5-15); BUN 28 mg/dL (7-18); BUN/Creat Ratio 24.6 RATIO (10-20); Calcium,Total 8.3 mg/dL (8.5-10.1); Chloride 103 mmol/L (98-107); Creatinine, Serum 1.14 mg/dL (0.55-1.02); EST Glomerular Filtration Rate 50 mL/min (>60); Est Glom Filt Rate - Afr Amer 60 mL/min (>60); Glucose 70 mg/dL (74-106); Sodium Level 138 mmol/L (136-145)
== END ==
LOC: LAB.FUTURE 14:55 → BFHLAB 14:55
PROVIDERS: Family Provider Family Medicine; PCP Family Medicine; Referring Provider Family Medicine; Visit Provider Family Medicine
DX: N18.3 Chronic kidney disease, stage 3 (moderate) (principal)
CPT/HCPCS: 36415; 80048

== ENCOUNTER → 2019-08-13 16:27 | Outpatient (CLI) | payer MEDICARE, SELFPAY ==
--- NOTE | 2019-08-13 16:33 | RAD_ITS ---
STUDY: X-RAY - RIGHT SHOULDER REASON FOR EXAM: Female, 74 years old. right shoulder pain x 3 months TECHNIQUE: 4 view(s) of the shoulder. COMPARISON: None. FINDINGS: There is mild degenerative arthrosis of the glenohumeral articulation. There is degenerative arthrosis of the acromioclavicular joint without inferior osseous spur formation. Normal acromion. There is no demonstrated inferior acromial spur. Normal humeral head and visualized proximal humerus. The soft tissue structures are unremarkable. Normal visualized pulmonary apex. RAD/Shoulder min 2 Views IMPRESSION: Degenerative changes without acute findings Electronically Signed: Rl Teague DO at 18:41 EST Tel , Service support ,
[2019-08-13 17:41] LABS: Absolute Lymphocyte Count 1.32 X10^3/uL (0.83-4.51); Absolute Neutrophil Count 3.2 X10^3/uL (2.0-7.7); Basophil# 0.05 X10^3/uL; Basophil% 0.9 % (0-1); Eosinophil# 0.55 X10^3/uL; Eosinophils% 9.8 % (0-5); Hematocrit 34.2 % (37-47); Hemoglobin 10.8 g/dL (12.0-15.0); Lymphocyte # 1.32 X10^3/ul (4.0); Lymphocyte % 23.4 % (19-41); Mean Corp Hgb Conc 31.6 g/dL (32-36); Mean Corpuscular Hgb 28.9 pg (27.0-32.0); Mean Corpuscular Volume 91.4 fL (81-99); Mean Platelet Vol. 9.5 fl (6.2-12.0); Monocyte# 0.53 X10^3/uL; Monocyte% 9.4 % (0-10); NRBC Flagged by Analyzer 0 % (0-5); Neutrophil # 3.17 X10^3/uL (2.7-7.7); Neutrophil % 56.3 % (47-70); Platelet Count 379 K/mm3 (150-450); RBC Distribution Width CV 12.4 % (11.6-14.6); RBC Distribution Width SD 41.4 fl (35.1-43.9); Red Blood Count 3.74 M/mm3 (4.2-5.4); White Blood Count 5.6 K/mm3 (4.4-11.0)
[2019-08-13 18:18] LABS: ALB/GLOB Ratio 0.8 RATIO (0.9-2.4); AST(SGOT) 17 U/L (15-37); Alanine Aminotransfer ALT/SGPT 25 U/L (13-56); Albumin, Serum 3.3 g/dL (3.2-5.0); Alkaline Phosphatase 172 U/L (45-117); Anion Gap 4 (5-15); BUN 26 mg/dL (7-18); BUN/Creat Ratio 18.4 RATIO (10-20); Calcium,Total 8.9 mg/dL (8.5-10.1); Chloride 98 mmol/L (98-107); Creatinine, Serum 1.41 mg/dL (0.55-1.02); EST Glomerular Filtration Rate 39 mL/min (>60); Est Glom Filt Rate - Afr Amer 47 mL/min (>60); Glucose 412 mg/dL (74-106); Potassium 4.6 mmol/L (3.5-5.1); Protein, Total 7.3 g/dL (6.4-8.2); Sodium Level 131 mmol/L (136-145)
== END ==
PROVIDERS: Internal Medicine Rheumatology; Family Provider Family Medicine; PCP Family Medicine; Referring Provider Family Medicine; Visit Provider Family Medicine
DX: M25.511 Pain in right shoulder (principal); M79.601 Pain in right arm; M06.4 Inflammatory polyarthropathy; Z79.899 Other long term (current) drug therapy; M15.9 Polyosteoarthritis, unspecified; M17.0 Bilateral primary osteoarthritis of knee; M21.40 Flat foot [pes planus] (acquired), unspecified foot; M19.172 Post-traumatic osteoarthritis, left ankle and foot; M48.061 Spinal stenosis, lumbar region without neurogenic claudication; E11.9 Type 2 diabetes mellitus without complications; G25.81 Restless legs syndrome
CPT/HCPCS: 36415; 73030; 80053; 85025

== ENCOUNTER 2019-09-11 14:03 | Inpatient (IN) | payer MEDICARE, OTHER, SELFPAY ==
[2019-09-10 12:21] VITALS: BMI 30.2
[2019-09-11 14:05] VITALS: BP 195/79; PULSE 74; RESP 15; TEMP 36.1; O2SAT 97; BMI 30.4
--- NOTE | 2019-09-11 15:12 | RAD_ITS ---
STUDY: X-RAY - PELVIS AND LEFT HIP REASON FOR EXAM: Female, 74 years old. PT C/O LEFT HIP PAIN SINCE RACHELLE. DENIES INJURY. TECHNIQUE: 3 views of the pelvis and hip. COMPARISON: None. FINDINGS: Acute fracture of the left femoral neck noted with external rotation and foreshortening of the femoral neck. Extensive vascular calcifications. IMPRESSION: Acute left-sided femoral neck fracture with external rotation and foreshortening of the femoral neck Electronically Signed: Roland Borjas, at 15:59 EST Tel , Service support , RAD/HIP, UNI W/ Pelvis 2-3 Views
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
[2019-09-11] MEDS: Morphine 4 MG/ML Syringe IM (15:28)
[2019-09-11 15:37] LABS: Absolute Neutrophil Count 5.2 X10^3/uL (2.0-7.7); Basophil# 0.03 X10^3/uL; Basophil% 0.4 % (0-1); Eosinophil# 0.28 X10^3/uL; Eosinophils% 3.8 % (0-5); Hemoglobin 10.9 g/dL (12.0-15.0); Lymphocyte % 16.2 % (19-41); Mean Corp Hgb Conc 32.1 g/dL (32-36); Mean Corpuscular Hgb 28.4 pg (27.0-32.0); Mean Corpuscular Volume 88.5 fL (81-99); Mean Platelet Vol. 9.4 fl (6.2-12.0); Monocyte# 0.61 X10^3/uL; Monocyte% 8.3 % (0-10); NRBC Flagged by Analyzer 0 % (0-5); Neutrophil # 5.24 X10^3/uL (2.7-7.7); Neutrophil % 70.9 % (47-70); Platelet Count 349 K/mm3 (150-450); RBC Distribution Width CV 12.8 % (11.6-14.6); RBC Distribution Width SD 41.3 fl (35.1-43.9); Red Blood Count 3.84 M/mm3 (4.2-5.4); White Blood Count 7.4 K/mm3 (4.4-11.0)
[2019-09-11 15:45] LABS: International Normalized Ratio 1.1; Prothrombin Time (Protime)PT. 13.7 SECONDS (11.7-14.9)
[2019-09-11 15:47] LABS: Anion Gap 4 (5-15); BUN 41 mg/dL (7-18); BUN/Creat Ratio 30.4 RATIO (10-20); Calcium,Total 9.3 mg/dL (8.5-10.1); Chloride 102 mmol/L (98-107); Creatinine, Serum 1.35 mg/dL (0.55-1.02); EST Glomerular Filtration Rate 41 mL/min (>60); Est Glom Filt Rate - Afr Amer 49 mL/min (>60); Estimated Creatinine Clearance 40.13 ml/min; Glucose 173 mg/dL (74-106); Potassium 4.5 mmol/L (3.5-5.1); Sodium Level 135 mmol/L (136-145)
--- NOTE | 2019-09-11 15:55 | EKG12_ITS ---
Test Reason : Blood Pressure : / mmHG Vent. Rate : 060 BPM Atrial Rate : 060 BPM P-R Int : 234 ms QRS Dur : 102 ms QT Int : 454 ms P-R-T Axes : 058 039 041 degrees QTc Int : 454 ms Sinus rhythm with 1st degree A-V block Otherwise normal ECG Confirmed by TAMARA MURRAY, SHELLEY ([id number]), news assignment editor GREER ANN ([id number]) on 09/16/2019 2:54:16 PM Referred By: AVIVA Confirmed By:ALBERT MCDONALD MD
--- NOTE | 2019-09-11 16:01 | NURSING ---
NO OLD EKGS
--- NOTE | 2019-09-11 16:04 | RAD_ITS ---
STUDY: X-RAY CHEST REASON FOR EXAM: Female, 74 years old. PRE-OP -- HIP FX TECHNIQUE: Single view of the chest was obtained COMPARISON: None. FINDINGS: No lung consolidation, pleural effusion or pneumothorax. Mild pulmonary congestion. Cardiac size is slightly prominent. Calcifications of the aortic knob. Elevated right hemidiaphragm. IMPRESSION: Mild pulmonary congestive changes. No consolidative process or pneumothorax. Electronically Signed: Roland Borjas, at 17:00 EST Tel , Service support , RAD/Chest 1 View (Portable)
[2019-09-11] MEDS: HYDROmorphone 0.5 MG/0.5 ML SYRINGE IV ×2 (16:17→16:40)
--- NOTE | 2019-09-11 16:18 | NURSING ---
MED SURG LT HIP FX RADHA
[2019-09-11 16:35] VITALS: BP 204/71; PULSE 61; RESP 16; O2SAT 100
--- NOTE | 2019-09-11 17:09 | PCM.HP.STD ---
<Kamlesh York - Last Filed: 09/11/19 17:09> Problem List (1) Femoral neck fracture Status: Acute (2) CKD (chronic kidney disease), stage III Status: Chronic (3) Rheumatoid arthritis Status: Chronic (4) T2DM (type 2 diabetes mellitus) Status: Chronic Qualifiers: Diabetes mellitus [facility] insulin use: with intermodal dispatcher use Diabetes mellitus complication status: with skin complications Diabetes mellitus complication detail: with other skin ulcer Qualified Code(s): E11.622 - Type 2 diabetes mellitus with other skin ulcer; Z79.4 - nursing home (current) use of insulin History of Present Illness Date of Admission: 09/11/19 Chief Complaint: left hip pain The patient is a 74 year old F with pmhx of RA and DMt2 who presented to the ER with complaints of left hip pain. This began spontaneously about 7 days prior. She denies a fall or inciting injury. She was walking across her kitchen when the pain hit. She did not feel a crack or pop. She has no numbness/tingling. She was initially able to weight bear but now has not walked since . She normally is independent in the home. She was found to have a left femoral neck fracture and Dr. Karimi was contacted. She also recently has had increased LE edema both legs and was placed on compression by the wound care center. Pain is currently 10/10 despite receiving dilaudid.[] Past Medical History Past Medical History (Chronic Problems): Chronic Problems Venous stasis dermatitis of both lower extremities (Chronic) Ulcer of right lower extremity with fat layer exposed (Chronic) Venous stasis ulcer of right lower leg with edema of right lower leg (Chronic) T2DM (type 2 diabetes mellitus) (Chronic) Rheumatoid arthritis (Chronic) CKD (chronic kidney disease), stage III (Chronic) Allergies No Known Allergies Allergy (Verified 09/07/19 14:49) Home Medications: Ambulatory Orders Medication Instructions Recorded Ferrous Sulfate [Iron] 325 mg PO DAILY 08/14/17 Pramipexole Di-HCl [Mirapex] 2 mg PO QHS 08/14/17 Propranolol HCl 20 mg PO BID 10/28/18 Hydroxychloroquine Sulfate 200 mg PO DAILY 09/07/19 [Plaquenil] Insulin Detemir [Levemir (BKC)] 29 units SUBCUT DAILY 09/07/19 Fentanyl 25 mg TRANSDERM. 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 Denies: Chest Pain, Palpitations Respiratory: Denies: Cough, Shortness of breath at rest, Sputum production Gastrointestinal: Denies: Abdominal Pain, Nausea, Vomiting Genitourinary: Denies: Dysuria Musculoskeletal: Reports: Joint Pain, Joint Tenderness Skin: Denies: Lesions, Rash, Wounds Neurological: Denies: Numbness, Tingling, Focal weakness Psychiatric: Denies: Anxiety, Depression, Homicidal Ideations, Suicidal Ideations Hematologic/ Lymphatic: Denies: Easy Bruising, Easy Bleeding VTE Information - Inpt Only VTE Present on Admission: No VTE Mechan Device Prophylaxis: SCD's, None VTE Pharm Prophylaxis ordered?: No Patient Problems: Active and Suspected Problems Femoral neck fracture (Acute) - Physical Exam Vitals/I&O's: Vital Signs Temp Pulse Resp BP Pulse Ox 96.9 F L 61 16 204/71 H 100 09/11/19 14:05 09/11/19 16:35 09/11/19 16:35 09/11/19 16:35 09/11/19 16:35 Oxygen Delivery Method Room Air Weight: 151 lb Body Mass Index (BMI) 30.4 General: Alert, Oriented x3, Cooperative HEENT: Atraumatic, PERRLA, EOMI, Normocephalic Neck: Supple, No JVD, Negative Carotid Bruits Lungs: Clear to auscultation, Normal air movement Cardiovascular: Regular rate, No murmurs Abdomen: Bowel Sounds Present, Soft, Non Tender Extremities: No edema, Capillary Refill Less than 3 Seconds, Edema - in compression Skin: No rashes, No breakdown Musculoskeletal: No Tenderness to Palpation of Joints or Extremities Neurological: Cranial nerves II-XII grossly intact Psych/Mental Status: Normal Affect, Appropriate Laboratory Results 09/11/19 15:25: WBC 7.4, RBC 3.84 L, Hgb 10.9 L, Hct 34.0 L, MCV 88.5, MCH 28.4, MCHC 32.1, RDW Std Deviation 41.3, RDW Coeff of Fady 12.8, Plt Count 349, MPV 9.4, Immature Gran % (Auto) 0.400, Neut % (Auto) 70.9 H, Lymph % (Auto) 16.2 L, Giles % (Auto) 8.3, Eos % (Auto) 3.8, Baso % (Auto) 0.4, Absolute Neuts (auto) 5.2, Absolute Lymphs (auto) 1.20, Nucleated RBC % 0 09/11/19 15:25: PT 13.7, INR 1.1 09/11/19 15:25: Sodium 135 L, Potassium 4.5, Chloride 102, Carbon Dioxide 29.0, Anion Gap 4 L, BUN 41 H, Creatinine 1.35 H, Estim Creat Clear Calc 40.13, Est GFR (MDRD) Af Amer 49 L, Est GFR (MDRD) Non-Af 41 L, BUN/Creatinine Ratio 30.4 H, Glucose 173 H, Calcium 9.3 09/11/19 15:25: Hemoglobin A1c Pending Current Medications Acetaminophen (Tylenol) 650 mg PO Q6H PRN PRN PRN Reason: Pain Score 1-10/Temp > 100.7 F Docusate Sodium (Colace) 100 mg PO BID [facility] Enoxaparin Sodium (Lovenox) 30 mg SC DAILY [facility] Glucagon () 1 mg IM .X1 PRN PRN Reason: Hypoglycemia Sodium Chloride () 1,000 mls @ 75 mls/hr IV .[id number] [facility] Dextrose (Dextrose 10%-Water) 250 mls @ 999 mls/hr IV .Q16M PRN; Protocol PRN Reason: HYPOGLYCEMIA Insulin Human Lispro (Humalog Kwikpen (Bkc)) 0 unit SC ACHS [facility]; Protocol Melatonin (Melatonin) 3 mg PO QHS PRN PRN PRN Reason: INSOMNIA Morphine Sulfate () 2 mg IV Q3H PRN PRN PRN Reason: Pain Score 6-10/10 Ondansetron HCl (Zofran) 4 mg IV Q8H PRN PRN PRN Reason: NAUSEA/VOMITING Oxycodone HCl (Oxyir) 5 mg PO Q4H PRN PRN PRN Reason: Pain Score 4-5/10 Senna/Docusate Sodium (Senokot-S, Stefany-Colace) 2 tablet PO BID PRN PRN PRN Reason: Constipation Assessment/Plan All Active Problems Open wound of left lower extremity (Acute) Femoral neck fracture (Acute) 1. Left femoral neck fracture - ortho consult. ptot. pain uncontrolled. no inciting event. risk calculator score printed and on chart. 2. T2DM - continue levemir + SSI 3. RA - on plaquenil 4. CKDIII - appears at baseline 5. LE edema - with the worsening LE edema and presence of hip fracture will obtain venous US to r.o DVT. DVT ppx: per ortho, pending results of US DC planning: currently unable to walk, normally independent. PTOT evals post op This patient was seen by Kamlesh York PA-C under the supervision of Doctor Belinda. <Clark Trevino F - Last Filed: 09/11/19 18:12> History of Present Illness The patient is a 74 year old F [] Past Medical History Allergies No Known Allergies Allergy (Verified 09/07/19 14:49) - Physical Exam Vitals/I&O's: Vital Signs Temp Pulse Resp BP Pulse Ox 96.9 F L 61 16 204/71 H 100 09/11/19 14:05 09/11/19 16:35 09/11/19 16:35 09/11/19 16:35 09/11/19 16:35 Oxygen Delivery Method Room Air Weight: 129 lb 3.054 oz Body Mass Index (BMI) 26.1 Laboratory Results 09/11/19 15:25: WBC 7.4, RBC 3.84 L, Hgb 10.9 L, Hct 34.0 L, MCV 88.5, MCH 28.4, MCHC 32.1, RDW Std Deviation 41.3, RDW Coeff of Fady 12.8, Plt Count 349, MPV 9.4, Immature Gran % (Auto) 0.400, Neut % (Auto) 70.9 H, Lymph % (Auto) 16.2 L, Giles % (Auto) 8.3, Eos % (Auto) 3.8, Baso % (Auto) 0.4, Absolute Neuts (auto) 5.2, Absolute Lymphs (auto) 1.20, Nucleated RBC % 0 09/11/19 15:25: PT 13.7, INR 1.1 09/11/19 15:25: Sodium 135 L, Potassium 4.5, Chloride 102, Carbon Dioxide 29.0, Anion Gap 4 L, BUN 41 H, Creatinine 1.35 H, Estim Creat Clear Calc 40.13, Est GFR (MDRD) Af Amer 49 L, Est GFR (MDRD) Non-Af 41 L, BUN/Creatinine Ratio 30.4 H, Glucose 173 H, Calcium 9.3 09/11/19 15:25: Hemoglobin A1c Pending Current Medications Acetaminophen (Tylenol) 650 mg PO Q6H PRN PRN PRN Reason: Pain Score 1-10/Temp > 100.7 F Docusate Sodium (Colace) 100 mg PO BID [facility] Enoxaparin Sodium (Lovenox) 30 mg SC DAILY [facility] Glucagon () 1 mg IM .X1 PRN PRN Reason: Hypoglycemia Sodium Chloride () 1,000 mls @ 75 mls/hr IV .[id number] [facility] Last Admin: 09/11/19 17:41 Dose: 75 mls/hr Documented by: Dextrose (Dextrose 10%-Water) 250 mls @ 999 mls/hr IV .Q16M PRN; Protocol PRN Reason: HYPOGLYCEMIA Sodium Chloride () 250 mls @ 15 mls/hr IV .[id number] PRN PRN Reason: Saline Flush Sodium Chloride () 250 mls @ 15 mls/hr IV .[id number] PRN PRN Reason: Additional IVPB Infusion Insulin Human Lispro (Humalog Kwikpen (Bkc)) 0 unit SC ACHS [facility]; Protocol Melatonin (Melatonin) 3 mg PO QHS PRN PRN PRN Reason: INSOMNIA Morphine Sulfate () 2 mg IV Q3H PRN PRN PRN Reason: Pain Score 6-10/10 Ondansetron HCl (Zofran) 4 mg IV Q8H PRN PRN PRN Reason: NAUSEA/VOMITING Oxycodone HCl (Oxyir) 5 mg PO Q4H PRN PRN PRN Reason: Pain Score 4-5/10 Senna/Docusate Sodium (Senokot-S, Stefany-Colace) 2 tablet PO BID PRN PRN PRN Reason: Constipation Sodium Chloride () 10 - 40 ml IV UD PRN PRN Reason: SALINE FLUSH Code Visit Addendum: Dr. Trevino I personally examined the patient and reviewed the chart. I agree with the above. 74-year-old female who fell and broke her hip last Friday she has been walking on it with a walker ever since. She presents with worsening pain. She is also had lower extremity edema and blistering and she is been going to the wound care for. They have not evaluated her for DVTs but she does not have a history of heart failure based on an echo in 2018. Hip x-ray on the left shows an acute left-sided femoral neck fracture with external rotation and foreshortening of the femoral neck. Consult for orthopedic surgical evaluation and treatment. We will continue with her home insulin regimen and check an A1c. Inpatient E&M: 53794 Init Hosp L3
[2019-09-11 17:21] VITALS: BMI 26.1
--- NOTE | 2019-09-11 17:25 | VDLE_ITS ---
Reason For Study: Swelling RIGHT LEFT GSV is normal. GSV is normal. CFV is compressible, spontaneous, phasic, CFV is compressible, spontaneous, phasic, competent and demonstrates normal competent, and demonstrates normal augmentation. augmentation. FV is compressible, spontaneous, phasic, FV is compressible, spontaneous, phasic, competent and demonstrates normal competent and demonstrates normal augmentation. augmentation. POP V is compressible, spontaneous, phasic, POP V is compressible, spontaneous, phasic, competent and demonstrates normal competent and demonstrates normal augmentation. augmentation. T/P Trunk is compressible. T/P Trunk is compressible. Procedure Exam performed portable in patient room. The study was technically difficult. The study was technically limited. Unable to scan below bilateral knees due to bandages and wraps. A preliminary report was called and/or faxed to [facility]. Interpretation Summary Deep veins of the lower extremities are bilaterally patent and compressible segmentally. There is no evidence of deep vein thrombosis on either side. Valvular competence appears intact within the proximal deep venous systems bilaterally. The great saphenous veins appear bilaterally patent and compressible segmentally. The venous system below the knees was not visualized due to the presence of wraps and bandages bilaterally. Ordering Physician: Clark Trevino Referring Physician: Leonard Stewart Performed By: Guerda Cisse, DONNACS, RVT
[2019-09-11 17:30] VITALS: BMI 26.1
[2019-09-11] MEDS: 0.9% Normal Saline 1,000 ML 75 ML IV (17:41)
--- NOTE | 2019-09-11 18:15 | NURSING ---
Fentanyl patch 25mcg removed from mid abdomen and flushed down toilet. RAMYA GARCIA witnessed.
[2019-09-11] MEDS: Morphine 2 MG/ML Syringe IV ×2 (18:29→22:54)
[2019-09-11 20:04] LABS: Hemoglobin A1c 9.1 % (4.2-6.3)
[2019-09-11 20:08] VITALS: BP 155/67; PULSE 80; RESP 18; TEMP 37.1; O2SAT 94
[2019-09-11] MEDS: oxyCODONE 5 MG Tablet PO (20:20)
[2019-09-11] MEDS: Pramipexole Di-HCl 1 MG Tablet 2 MG PO (21:09)
[2019-09-11] MEDS: Propranolol 10 MG Tablet 20 MG PO (21:10)
[2019-09-11] MEDS: Docusate Sodium 100 MG Capsule PO (21:14)
[2019-09-11] MEDS: Insulin Lispro 100 UNIT/ML INSULN.PEN SC (21:26)
[2019-09-11] MEDS: MELATONIN 3 MG TABLET PO (21:30)
[2019-09-11 22:26] LABS: Bedside Glucose 266 mg/dL (70-110)
[2019-09-12] VITALS (10 sets, daily range): BP systolic 136–189; BP diastolic 51–78; PULSE 59–82; RESP 16–18; TEMP 36.6–37.6; O2SAT 92–99; BMI 26.1
--- NOTE | 2019-09-12 | HIP_PTH ---
PATIENT: CASANDRA JONES LOC: [facility] U#:[id number] AGE/SX: 74/F ROOM: [facility] RE09/11/[address]: Dr. Sourav Karimi MD : [id number] BED: 1 DIS: 09/14/2019 SPEC #: [id number] RECD: 09/13/19 10:12 STATUS: LULU REQ #: [id number] RAMIREZ: 09/12/19 00:[address]: Sourav Karimi DEPT: SURGICAL PATHOLOGY RECD BY: Lisa Tirado ENTERED: 09/13/19 12:40 SP TYPE: TOTAL HIP OTHR DR: DO Dr. Clark Bolden MD Tissues: Hip, NOS Procedures: Decalcification bone/plaque Surgery Specimen Level IV HEADER OPERATION: Left hip hemiarthroplasty PRE-OP DIAGNOSIS: Femoral neck fracture left hip TISSUE SUBMITTED: Left femoral head and soft tissue MICROSCOPIC DIAGNOSIS Bone and soft tissue of left hip, total hip resection: Consistent with organizing fracture callous. AM:melodie 09/16/19 MICROSCOPIC DESCRIPTION Slides are reviewed. GROSS DESCRIPTION Received in fixative is one container labeled with the patient's name and designated femoral head and soft tissue. The specimen consists of a femoral head measuring 4 x 4.5 x 3.5 cm. The specimen shows a portion of femoral neck measuring 0.7 cm in length. The articular surface is smooth. The resection margin is irregular and hemorrhagic. Also present in the container are detached pieces of bone consistent with femoral neck measuring 4 x 3 x 1.5 cm. Also present in the container are pieces of tissue measuring 3 x 1 x 0.5 cm. Drivers License Examiner sections are submitted in three cassettes as follows: 1 - entire soft tissue, 2 - piece of bone consistent with femoral neck, 3 - femoral head; 2 & 3 are submitted after decalcification. / HEIDE:melodie 09/13/19 TC:5 CPT: 33991, 07038
[2019-09-12] MEDS: Morphine 2 MG/ML Syringe IV ×4 (03:32→20:46)
[2019-09-12 05:38] LABS: Absolute Lymphocyte Count 1.17 X10^3/uL (0.83-4.51); Absolute Neutrophil Count 5.2 X10^3/uL (2.0-7.7); Basophil# 0.03 X10^3/uL; Basophil% 0.4 % (0-1); Eosinophil# 0.19 X10^3/uL; Eosinophils% 2.6 % (0-5); Hematocrit 30.6 % (37-47); Hemoglobin 9.8 g/dL (12.0-15.0); Lymphocyte # 1.17 X10^3/ul (4.0); Lymphocyte % 16.1 % (19-41); Mean Corpuscular Hgb 28.3 pg (27.0-32.0); Mean Corpuscular Volume 88.4 fL (81-99); Mean Platelet Vol. 9.6 fl (6.2-12.0); Monocyte# 0.62 X10^3/uL; Monocyte% 8.5 % (0-10); NRBC Flagged by Analyzer 0 % (0-5); Neutrophil # 5.22 X10^3/uL (2.7-7.7); Platelet Count 321 K/mm3 (150-450); RBC Distribution Width CV 12.7 % (11.6-14.6); RBC Distribution Width SD 40.9 fl (35.1-43.9); Red Blood Count 3.46 M/mm3 (4.2-5.4); White Blood Count 7.3 K/mm3 (4.4-11.0)
[2019-09-12 05:56] LABS: Partial Thromboplast Time 37.6 Seconds (24.1-36.2)
[2019-09-12 06:02] LABS: Anion Gap 6 (5-15); BUN 33 mg/dL (7-18); BUN/Creat Ratio 31.7 RATIO (10-20); Calcium,Total 8.7 mg/dL (8.5-10.1); Chloride 101 mmol/L (98-107); Creatinine, Serum 1.04 mg/dL (0.55-1.02); EST Glomerular Filtration Rate 55 mL/min (>60); Est Glom Filt Rate - Afr Amer 67 mL/min (>60); Estimated Creatinine Clearance 44.57 ml/min; Glucose 197 mg/dL (74-106); Potassium 4.1 mmol/L (3.5-5.1); Sodium Level 135 mmol/L (136-145)
[2019-09-12 06:31] LABS: Bedside Glucose 177 mg/dL (70-110)
[2019-09-12] MEDS: Propranolol 10 MG Tablet 20 MG PO ×2 (08:05→20:45)
[2019-09-12] MEDS: 0.9% Normal Saline 1,000 ML 75 ML IV (11:47)
--- NOTE | 2019-09-12 11:48 | PCM.PN.HOSP ---
<Kamlesh York - Last Filed: 09/12/19 11:52> Patient Problems: Active and Suspected Problems Femoral neck fracture (Acute) Vitals/I&O's: Vital Signs Temp Pulse Resp BP Pulse Ox 99.6 F H 76 16 139/78 H 94 09/12/19 11:39 09/12/19 11:39 09/12/19 11:39 09/12/19 11:39 09/12/19 11:39 Oxygen Delivery Method Room Air Weight: 129 lb 3.054 oz Body Mass Index (BMI) 26.1 Intake and Output for Last 24 Hours 09/10/19 09/11/19 09/12/19 23:59 23:59 23:59 Intake Total 1000 / 1000 Output Total 1150 / 1150 Balance -150 / -150 General: Alert, Oriented x3, Cooperative HEENT: Atraumatic, PERRLA, EOMI, Normocephalic Neck: Supple, No JVD, Negative Carotid Bruits Lungs: Clear to auscultation, Normal air movement Cardiovascular: Regular rate, No murmurs Abdomen: Bowel Sounds Present, Soft, Non Tender Extremities: No edema, Capillary Refill Less than 3 Seconds Skin: No rashes, No breakdown Musculoskeletal: No Tenderness to Palpation of Joints or Extremities Neurological: Cranial nerves II-XII grossly intact Psych/Mental Status: Normal Affect, Appropriate, Alert and oriented to time, place, person, mood and affect Laboratory Results 09/11/19 15:25: WBC 7.4, RBC 3.84 L, Hgb 10.9 L, Hct 34.0 L, MCV 88.5, MCH 28.4, MCHC 32.1, RDW Std Deviation 41.3, RDW Coeff of Fady 12.8, Plt Count 349, MPV 9.4, Immature Gran % (Auto) 0.400, Neut % (Auto) 70.9 H, Lymph % (Auto) 16.2 L, [place] % (Auto) 8.3, Eos % (Auto) 3.8, Baso % (Auto) 0.4, Absolute Neuts (auto) 5.2, Absolute Lymphs (auto) 1.20, Nucleated RBC % 0 09/11/19 15:25: PT 13.7, INR 1.1 09/11/19 15:25: Sodium 135 L, Potassium 4.5, Chloride 102, Carbon Dioxide 29.0, Anion Gap 4 L, BUN 41 H, Creatinine 1.35 H, Estim Creat Clear Calc 40.13, Est GFR (MDRD) Af Amer 49 L, Est GFR (MDRD) Non-Af 41 L, BUN/Creatinine Ratio 30.4 H, Glucose 173 H, Calcium 9.3 09/11/19 15:25: Hemoglobin A1c 9.1 H 09/11/19 21:19: POC Glucose 266 H 09/12/19 04:52: Sodium 135 L, Potassium 4.1, Chloride 101, Carbon Dioxide 28.0, Anion Gap 6, BUN 33 H, Creatinine 1.04 H, Estim Creat Clear Calc 44.57, Est GFR (MDRD) Af Amer 67, Est GFR (MDRD) Non-Af 55 L, BUN/Creatinine Ratio 31.7 H, Glucose 197 H, Calcium 8.7 09/12/19 04:52: WBC 7.3, RBC 3.46 L, Hgb 9.8 L, Hct 30.6 L, MCV 88.4, MCH 28.3, MCHC 32.0, RDW Std Deviation 40.9, RDW Coeff of Fady 12.7, Plt Count 321, MPV 9.6, Immature Gran % (Auto) 0.400, Neut % (Auto) 72.0 H, Lymph % (Auto) 16.1 L, [place] % (Auto) 8.5, Eos % (Auto) 2.6, Baso % (Auto) 0.4, Absolute Neuts (auto) 5.2, Absolute Lymphs (auto) 1.17, Nucleated RBC % 0 09/12/19 04:52: APTT 37.6 H 09/12/19 04:52: Blood Type A NEGATIVE, Antibody Screen NEGATIVE 09/12/19 06:23: POC Glucose 177 H Current Medications Acetaminophen (Tylenol) 650 mg PO Q6H PRN PRN PRN Reason: Pain Score 1-10/Temp > 100.7 F Docusate Sodium (Colace) 100 mg PO BID [facility] Last Admin: 09/12/19 07:49 Dose: Not Given Documented by: Enoxaparin Sodium (Lovenox) 30 mg SC DAILY [facility] Last Admin: 09/12/19 07:49 Dose: Not Given Documented by: Ferrous Sulfate (Ferrous Sulfate) 325 mg PO 1200 [facility] Last Admin: 09/12/19 11:41 Dose: Not Given Documented by: Glucagon () 1 mg IM .X1 PRN PRN Reason: Hypoglycemia Hydroxychloroquine Sulfate (Plaquenil) 200 mg PO DAILYCM [facility] Last Admin: 09/12/19 08:06 Dose: Not Given Documented by: Sodium Chloride () 1,000 mls @ 75 mls/hr IV .[id number] [facility] Last Admin: 09/12/19 11:47 Dose: 75 mls/hr Documented by: Dextrose (Dextrose 10%-Water) 250 mls @ 999 mls/hr IV .Q16M PRN; Protocol PRN Reason: HYPOGLYCEMIA Sodium Chloride () 250 mls @ 15 mls/hr IV .[id number] PRN PRN Reason: Saline Flush Sodium Chloride () 250 mls @ 15 mls/hr IV .[id number] PRN PRN Reason: Additional IVPB Infusion Insulin Glargine (Lantus ([facility])) 29 units SC DAILY@1100 [facility] Last Admin: 09/12/19 11:41 Dose: Not Given Documented by: Insulin Human Lispro (Humalog Kwikpen ([facility])) 0 unit SC ACHS [facility]; Protocol Last Admin: 09/12/19 11:41 Dose: Not Given Documented by: Melatonin (Melatonin) 3 mg PO QHS PRN PRN PRN Reason: INSOMNIA Last Admin: 09/11/19 21:30 Dose: 3 mg Documented by: Morphine Sulfate () 2 mg IV Q3H PRN PRN PRN Reason: Pain Score 6-10/10 Last Admin: 09/12/19 08:05 Dose: 2 mg Documented by: Ondansetron HCl (Zofran) 4 mg IV Q8H PRN PRN PRN Reason: NAUSEA/VOMITING Oxycodone HCl (Oxyir) 5 mg PO Q4H PRN PRN PRN Reason: Pain Score 4-5/10 Last Admin: 09/11/19 20:20 Dose: 5 mg Documented by: Pramipexole Dihydrochloride (Mirapex) 2 mg PO QHS [facility] Last Admin: 09/11/19 21:09 Dose: 2 mg Documented by: Propranolol HCl (Inderal) 20 mg PO BID [facility] Last Admin: 02/09/20 08:05 Dose: 20 mg Documented by: Senna/Docusate Sodium (Senokot-S, Stefany-Colace) 2 tablet PO BID PRN PRN PRN Reason: Constipation Sodium Chloride () 10 - 40 ml IV UD PRN PRN Reason: SALINE FLUSH STROKE Vital Signs/Narrative: Vital Signs Temp Pulse Resp BP Pulse Ox 09/12/19 11:39 99.6 F H 76 16 139/78 H 94 09/12/19 08:04 98.5 F 61 18 164/68 H 97 Medical Necessity - Tobacco Use Smoking Status: Never smoker Tobacco Use: Non-smoker Assessment/Plan All Active Problems Open wound of left lower extremity (Acute) Femoral neck fracture (Acute) 1. Left femoral neck fracture - ortho consult. ptot. pain controlled. no inciting event. to OR today with Dr. Karimi. 2. T2DM - continue levemir + SSI 3. RA - on plaquenil 4. CKDIII - appears at baseline 5. LE edema - with the worsening LE edema and presence of hip fracture. duplex pending DVT ppx: per ortho DC planning: currently unable to walk, normally independent. PTOT evals post op This patient was seen by Kamlesh York PA-C under the supervision of Doctor Belinda. <Clark Trevino F - Last Filed: 09/12/19 14:15> Vitals/I&O's: Vital Signs Temp Pulse Resp BP Pulse Ox 99.6 F H 76 16 139/78 H 94 09/12/19 11:39 09/12/19 11:39 09/12/19 11:39 09/12/19 11:39 09/12/19 11:39 Oxygen Delivery Method Room Air Weight: 129 lb 3.054 oz Body Mass Index (BMI) 26.1 Intake and Output for Last 24 Hours 09/10/19 09/11/19 09/12/19 23:59 23:59 23:59 Intake Total 1110 / 1110 Output Total 2150 / 2150 Balance -1040 / -1040 Laboratory Results 09/11/19 15:25: WBC 7.4, RBC 3.84 L, Hgb 10.9 L, Hct 34.0 L, MCV 88.5, MCH 28.4, MCHC 32.1, RDW Std Deviation 41.3, RDW Coeff of Fady 12.8, Plt Count 349, MPV 9.4, Immature Gran % (Auto) 0.400, Neut % (Auto) 70.9 H, Lymph % (Auto) 16.2 L, [place] % (Auto) 8.3, Eos % (Auto) 3.8, Baso % (Auto) 0.4, Absolute Neuts (auto) 5.2, Absolute Lymphs (auto) 1.20, Nucleated RBC % 0 09/11/19 15:25: PT 13.7, INR 1.1 09/11/19 15:25: Sodium 135 L, Potassium 4.5, Chloride 102, Carbon Dioxide 29.0, Anion Gap 4 L, BUN 41 H, Creatinine 1.35 H, Estim Creat Clear Calc 40.13, Est GFR (MDRD) Af Amer 49 L, Est GFR (MDRD) Non-Af 41 L, BUN/Creatinine Ratio 30.4 H, Glucose 173 H, Calcium 9.3 09/11/19 15:25: Hemoglobin A1c 9.1 H 09/11/19 21:19: POC Glucose 266 H 09/12/19 04:52: Sodium 135 L, Potassium 4.1, Chloride 101, Carbon Dioxide 28.0, Anion Gap 6, BUN 33 H, Creatinine 1.04 H, Estim Creat Clear Calc 44.57, Est GFR (MDRD) Af Amer 67, Est GFR (MDRD) Non-Af 55 L, BUN/Creatinine Ratio 31.7 H, Glucose 197 H, Calcium 8.7 09/12/19 04:52: WBC 7.3, RBC 3.46 L, Hgb 9.8 L, Hct 30.6 L, MCV 88.4, MCH 28.3, MCHC 32.0, RDW Std Deviation 40.9, RDW Coeff of Fady 12.7, Plt Count 321, MPV 9.6, Immature Gran % (Auto) 0.400, Neut % (Auto) 72.0 H, Lymph % (Auto) 16.1 L, [place] % (Auto) 8.5, Eos % (Auto) 2.6, Baso % (Auto) 0.4, Absolute Neuts (auto) 5.2, Absolute Lymphs (auto) 1.17, Nucleated RBC % 0 09/12/19 04:52: APTT 37.6 H 09/12/19 04:52: Blood Type A NEGATIVE, Antibody Screen NEGATIVE 09/12/19 06:23: POC Glucose 177 H 09/12/19 11:37: POC Glucose 144 H Current Medications Acetaminophen (Tylenol) 650 mg PO Q6H PRN PRN PRN Reason: Pain Score 1-10/Temp > 100.7 F Aspirin ([facility], Baby) [facility] Docusate Sodium (Colace) 100 mg PO BID [facility] Last Admin: 09/12/19 07:49 Dose: Not Given Documented by: Enoxaparin Sodium (Lovenox) 30 mg SC DAILY [facility] Last Admin: 09/12/19 07:49 Dose: Not Given Documented by: Ferrous Sulfate (Ferrous Sulfate) 325 mg PO 1200 [facility] Last Admin: 09/12/19 11:41 Dose: Not Given Documented by: Glucagon () 1 mg IM .X1 PRN PRN Reason: Hypoglycemia Hydroxychloroquine Sulfate (Plaquenil) [facility] Last Admin: 09/12/19 08:06 Dose: Not Given Documented by: Sodium Chloride () 1,000 mls @ 75 mls/hr IV .[id number] [facility] Last Infusion: 09/12/19 12:35 Dose: 0 mls/hr Documented by: Dextrose (Dextrose 10%-Water) 250 mls @ 999 mls/hr IV .Q16M PRN; Protocol PRN Reason: HYPOGLYCEMIA Sodium Chloride () 250 mls @ 15 mls/hr IV .[id number] PRN PRN Reason: Saline Flush Sodium Chloride () 250 mls @ 15 mls/hr IV .[id number] PRN PRN Reason: Additional IVPB Infusion Cefazolin Sodium () 1 gm in 50 mls @ 150 mls/hr IV Q6 [facility] Stop: 09/13/19 06:19 Insulin Glargine (Lantus ([facility])) 29 units SC DAILY@1100 [facility] Last Admin: 09/12/19 11:41 Dose: Not Given Documented by: Insulin Human Lispro (Humalog Kwikpen ([facility])) 0 unit SC ACHS [facility]; Protocol Last Admin: 09/12/19 11:41 Dose: Not Given Documented by: Melatonin (Melatonin) 3 mg PO QHS PRN PRN PRN Reason: INSOMNIA Last Admin: 09/11/19 21:30 Dose: 3 mg Documented by: Morphine Sulfate () 2 mg IV Q3H PRN PRN PRN Reason: Pain Score 6-10/10 Last Admin: 09/12/19 11:50 Dose: 2 mg Documented by: Ondansetron HCl (Zofran) 4 mg IV Q8H PRN PRN PRN Reason: NAUSEA/VOMITING Oxycodone HCl (Oxyir) 5 mg PO Q4H PRN PRN PRN Reason: Pain Score 4-5/10 Last Admin: 09/11/19 20:20 Dose: 5 mg Documented by: Pramipexole Dihydrochloride (Mirapex) 2 mg PO QHS [facility] Last Admin: 09/11/19 21:09 Dose: 2 mg Documented by: Propranolol HCl (Inderal) 20 mg PO BID [facility] Last Admin: 09/12/19 08:05 Dose: 20 mg Documented by: Senna/Docusate Sodium (Senokot-S, Stefany-Colace) 2 tablet PO BID PRN PRN PRN Reason: Constipation Sodium Chloride () 10 - 40 ml IV UD PRN PRN Reason: SALINE FLUSH STROKE Vital Signs/Narrative: Vital Signs Temp Pulse Resp BP Pulse Ox 09/12/19 11:39 99.6 F H 76 16 139/78 H 94 Code Visit Addendum: Dr. Trevino I personally examined the patient and reviewed the chart. I agree with the above. 74-year-old female who fell about a week ago presents with left hip pain. She was found to have left hip fracture and the plan is for OR today. We will continue to treat her diabetes with her long-acting insulin and a sliding scale insulin unfortunately that was not given today because she is for the OR and her blood sugar is 197 is only she is less than 200 we should be okay from a wound healing perspective. Her A1c is elevated and therefore she will probably need better control of her diabetes as an outpatient going forward. Ultrasound of her lower extremities are pending for possible DVT given worsening swelling over the last 2 weeks and she has been going to wound care for management. Inpatient E&M: [id number] [facility] L2
[2019-09-12 11:56] LABS: Bedside Glucose 144 mg/dL (70-110)
--- NOTE | 2019-09-12 12:35 | PCM.CONS.GEN ---
Reason for Consult Date of Consultation: 09/12/19 History of Present Illness: The patient is a 74 year old female with history of diabetes and rheumatoid arthritis that has been using a walker for 3 or 4 months. She has been diagnosed with right knee arthritis. She has been using a walker primarily for right knee pain. She developed left hip pain over the past 1 week. Hip pain became significantly worse on September 10. No injury. On September 11 pain became severe and her family brought her to the emergency room. She was diagnosed with a femoral neck fracture. Orthopedics was appropriately consulted. Patient states her pain was 15 out of 10. Now 5 out of 10. She thinks her most recent hemoglobin A1c prior to admission was around 8.5 [] Past Medical History Past Medical History (Chronic Problems): Chronic Problems Venous stasis dermatitis of both lower extremities (Chronic) Ulcer of right lower extremity with fat layer exposed (Chronic) Venous stasis ulcer of right lower leg with edema of right lower leg (Chronic) T2DM (type 2 diabetes mellitus) (Chronic) Rheumatoid arthritis (Chronic) CKD (chronic kidney disease), stage III (Chronic) Allergies No Known Allergies Allergy (Verified 09/07/19 14:49) Home Medications: Ambulatory Orders Medication Instructions Recorded Ferrous Sulfate [Iron] 325 mg PO DAILY 08/14/17 Pramipexole Di-HCl [Mirapex] 2 mg PO QHS 08/14/17 Propranolol HCl 20 mg PO BID 10/28/18 Hydroxychloroquine Sulfate 200 mg PO DAILY 09/07/19 [Plaquenil] Insulin Detemir [Levemir ([facility])] 29 units SUBCUT DAILY 09/07/19 Fentanyl 25 mcg TRANSDERM. Q3D 09/11/19 Surgical History: herniorrhaphy, - - left ankle, carpal tunnel, gastric bypass Psychiatric History: No pertinent psych hx [employer] History: No pertinent [employer] history Lives: Spouse/ Significant Other, With Family Smoking Status: Never smoker Tobacco Use: Non-smoker Alcohol: None Drugs: None - *Family History Maternal History Items: Cancer - uterine Paternal History Items: Cancer - prostate, Heart Disease Patient Problems: Active and Suspected Problems Femoral neck fracture (Acute) Objective: Left hip has shortening and external rotation. Left hip has pain on palpation and pain with any motion. Right hip has no pain on palpation. Right hip has no pain with motion. Right lower extremity does have some mild hyperemia throughout the mid and distal lower leg region. There are 3 superficial ulcerations on the right lower leg which have been treated by wound care. Biggest one is approximately 6 mm x 6 mm. Distal pulses are intact. Well-healed surgical site from previous left ankle osteomyelitis noted. No calf pain or swelling bilaterally. Negative Homans sign bilaterally. Review of systems done. Negative for any problem with eyes ears nose or throat heart or lungs bowel or bladder. She does wear glasses. Medication and allergy list reviewed. Laboratory work reviewed Elevated hemoglobin A1c noted and discussed with patient and her family Jigar AP pelvis AP and lateral of left hip shows a completely displaced left femoral neck fracture. No severe hip joint arthritis. Osteopenia noted. No obvious signs of pathologic fracture noted - Physical Exam Vitals/I&O's: Vital Signs Temp Pulse Resp BP Pulse Ox 99.6 F H 76 16 139/78 H 94 09/12/19 11:39 09/12/19 11:39 09/12/19 11:39 09/12/19 11:39 09/12/19 11:39 Oxygen Delivery Method Room Air Weight: 58.6 kg Body Mass Index (BMI) 26.1 Intake and Output for Last 24 Hours 09/10/19 09/11/19 09/12/19 23:59 23:59 23:59 Intake Total 1050 / 1050 Output Total 2150 / 2150 Balance -1100 / -1100 Laboratory Results 09/11/19 15:25: WBC 7.4, RBC 3.84 L, Hgb 10.9 L, Hct 34.0 L, MCV 88.5, MCH 28.4, MCHC 32.1, RDW Std Deviation 41.3, RDW Coeff of Fady 12.8, Plt Count 349, MPV 9.4, Immature Gran % (Auto) 0.400, Neut % (Auto) 70.9 H, Lymph % (Auto) 16.2 L, [place] % (Auto) 8.3, Eos % (Auto) 3.8, Baso % (Auto) 0.4, Absolute Neuts (auto) 5.2, Absolute Lymphs (auto) 1.20, Nucleated RBC % 0 09/11/19 15:25: PT 13.7, INR 1.1 09/11/19 15:25: Sodium 135 L, Potassium 4.5, Chloride 102, Carbon Dioxide 29.0, Anion Gap 4 L, BUN 41 H, Creatinine 1.35 H, Estim Creat Clear Calc 40.13, Est GFR (MDRD) Af Amer 49 L, Est GFR (MDRD) Non-Af 41 L, BUN/Creatinine Ratio 30.4 H, Glucose 173 H, Calcium 9.3 09/11/19 15:25: Hemoglobin A1c 9.1 H 09/11/19 21:19: POC Glucose 266 H 09/12/19 04:52: Sodium 135 L, Potassium 4.1, Chloride 101, Carbon Dioxide 28.0, Anion Gap 6, BUN 33 H, Creatinine 1.04 H, Estim Creat Clear Calc 44.57, Est GFR (MDRD) Af Amer 67, Est GFR (MDRD) Non-Af 55 L, BUN/Creatinine Ratio 31.7 H, Glucose 197 H, Calcium 8.7 09/12/19 04:52: WBC 7.3, RBC 3.46 L, Hgb 9.8 L, Hct 30.6 L, MCV 88.4, MCH 28.3, MCHC 32.0, RDW Std Deviation 40.9, RDW Coeff of Fady 12.7, Plt Count 321, MPV 9.6, Immature Gran % (Auto) 0.400, Neut % (Auto) 72.0 H, Lymph % (Auto) 16.1 L, [place] % (Auto) 8.5, Eos % (Auto) 2.6, Baso % (Auto) 0.4, Absolute Neuts (auto) 5.2, Absolute Lymphs (auto) 1.17, Nucleated RBC % 0 09/12/19 04:52: APTT 37.6 H 09/12/19 04:52: Blood Type A NEGATIVE, Antibody Screen NEGATIVE 09/12/19 06:23: POC Glucose 177 H 09/12/19 11:37: POC Glucose 144 H Current Medications Acetaminophen (Tylenol) 650 mg PO Q6H PRN PRN PRN Reason: Pain Score 1-10/Temp > 100.7 F Docusate Sodium (Colace) 100 mg PO BID [facility] Last Admin: 09/12/19 07:49 Dose: Not Given Documented by: Enoxaparin Sodium (Lovenox) 30 mg SC DAILY [facility] Last Admin: 09/12/19 07:49 Dose: Not Given Documented by: Ferrous Sulfate (Ferrous Sulfate) 325 mg PO 1200 [facility] Last Admin: 09/12/19 11:41 Dose: Not Given Documented by: Glucagon () 1 mg IM .X1 PRN PRN Reason: Hypoglycemia Hydroxychloroquine Sulfate (Plaquenil) 200 mg PO DAILYCM [facility] Last Admin: 09/12/19 08:06 Dose: Not Given Documented by: Sodium Chloride () 1,000 mls @ 75 mls/hr IV .[id number] [facility] Last Admin: 09/12/19 11:47 Dose: 75 mls/hr Documented by: Dextrose (Dextrose 10%-Water) 250 mls @ 999 mls/hr IV .Q16M PRN; Protocol PRN Reason: HYPOGLYCEMIA Sodium Chloride () 250 mls @ 15 mls/hr IV .[id number] PRN PRN Reason: Saline Flush Sodium Chloride () 250 mls @ 15 mls/hr IV .[id number] PRN PRN Reason: Additional IVPB Infusion Insulin Glargine (Lantus ([facility])) 29 units SC DAILY@1100 [facility] Last Admin: 09/12/19 11:41 Dose: Not Given Documented by: Insulin Human Lispro (Humalog Kwikpen ([facility])) 0 unit SC ACHS [facility]; Protocol Last Admin: 09/12/19 11:41 Dose: Not Given Documented by: Melatonin (Melatonin) 3 mg PO QHS PRN PRN PRN Reason: INSOMNIA Last Admin: 09/11/19 21:30 Dose: 3 mg Documented by: Morphine Sulfate () 2 mg IV Q3H PRN PRN PRN Reason: Pain Score 6-10/10 Last Admin: 09/12/19 11:50 Dose: 2 mg Documented by: Ondansetron HCl (Zofran) 4 mg IV Q8H PRN PRN PRN Reason: NAUSEA/VOMITING Oxycodone HCl (Oxyir) 5 mg PO Q4H PRN PRN PRN Reason: Pain Score 4-5/10 Last Admin: 09/11/19 20:20 Dose: 5 mg Documented by: Pramipexole Dihydrochloride (Mirapex) 2 mg PO QHS [facility] Last Admin: 09/11/19 21:09 Dose: 2 mg Documented by: Propranolol HCl (Inderal) 20 mg PO BID [facility] Last Admin: 09/12/19 08:05 Dose: 20 mg Documented by: Senna/Docusate Sodium (Senokot-S, Stefany-Colace) 2 tablet PO BID PRN PRN PRN Reason: Constipation Sodium Chloride () 10 - 40 ml IV UD PRN PRN Reason: SALINE FLUSH Assessment/Plan All Active Problems Open wound of left lower extremity (Acute) Femoral neck fracture (Acute) Her diagnosis and treatment options regarding a displaced left femoral neck fracture despite known trauma discussed with her and her family. Possibility of pathologic fracture discussed. Bone will be sent to pathology. We are planning a cemented hemiarthroplasty. Possibility of total hip replacement discussed. Based on her underlying medical comorbidities including poorly controlled diabetes, right lower extremity ulcerations, history of left lower extremity osteomyelitis, etc., I feel more comfortable proceeding with hemiarthroplasty rather than total hip replacement. Risk of surgery including but not limited to from operative or postoperative complications. Risk of anesthetic complications such as heart attacks, strokes, seizures, or . Risk of infections. Risk of damage to nerves arteries tendons. Risk of inadvertent fractures or dislocations. Risk of bone or wound healing complications. Possibility of nonunion malunion pain stiffness weakness. Possible need for further surgery such as hardware removal. Risk of DVT PE and other potential complications could lead to or disability explained. No guarantees were stated or implied. All of their questions were answered. Appropriate informed consent was obtained and signed for surgical intervention. She will be maintained on the medical service. Ancef will be used perioperatively. Plan aspirin for postoperative DVT prevention.
--- NOTE | 2019-09-12 13:08 | RAD_ITS ---
STUDY: X-RAY - PELVIS AND LEFT HIP REASON FOR EXAM: Female, 74 years old. POST OP TECHNIQUE: 2 views of the pelvis and hip. COMPARISON: 11 September 2019 preoperative FINDINGS: There is left total hip arthroplasty in place. Hardware is intact and in the expected location. There is soft tissue emphysema and surgical incision outlined by skin val. There are no unexpected radiopaque foreign bodies. There are extensive vascular calcifications. RAD/Hip Min 2 Views (Portable) IMPRESSION: Expected appearance of left total hip arthroplasty. No unexpected foreign bodies. Severe atherosclerosis. Electronically Signed: Skye Christina, at 20:44 EST Tel , Service support ,
[2019-09-12] MEDS: Cefazolin 2 GM in 0.9% Normal Saline 100 ML IV (13:46)
--- NOTE | 2019-09-12 15:06 | PRO.PCM_ITS ---
Procedure Report Date of Procedure: 09/12/19 Preoperative diagnosis: Left hip displaced femoral neck fracture Postoperative diagnosis: Same Operation: Left hip cemented hemiarthroplasty Surgeon: Dr. Sourav Karimi MD Field Map Technician: Abimbola Esteves PA-C Anesthesia: General Anesthesiologist; Dr. Emmanuel EBL 100 Complications: None Special medications: IV [Ancef 2 g], IV Tranexamic acid 1 g preop And postop Indications for surgery : Patient is a 74 -year-old [female] that the main to the emergency room yesterday and diagnosed with a fracturing her left hip. Appropriate informed consent was obtained and signed. Appropriate medical workup was performed preoperatively and patient was deemed safe for surgery by the anesthesia department human services assistant, EVANGELISTA was utilized throughout the entire procedure. They were vital in helping with patient positioning, holding of retractors, exposing the tissues adequately for safe completion of the procedure including cutting of the bone, helping supreme court judge appropriate alignment and sizing of the components, implantation of the components, as well as wound closure, bandage application, and safe patient transfer. Without surgical services coordinator, physician fast food sales assistant, surgical time would have been significantly increased, and surgical outcome would have been less optimal. Operative findings: Patient displaced comminuted left femoral neck fracture. We used a [place] reliance stem size #5 cemented. 14 mm distal centralizer. bipolar 44 mm femoral head with a +0 neck length. This reproduced there anatomy nicely. Clinically good leg lengths were noted. Good hip stability through range of motion with no undue pistoning. Standard wound closure in layers, followed by val, followed by Mepilex dressing Details of procedure: Patient was taken to the operating room and transferred to the operating table. Given appropriate anesthetic agent by that department. Patient was then rolled into a lateral decubitus position with the involved painful hip up in the air. Appropriate timeouts had been performed. Hip had been appropriately marked with my initials. Padded anterior and posterior position was utilized. Axillary roll placed. RITU hose and SCDs on the nonoperative limb utilized throughout the procedure. Operative lower extremity was prepped padded and draped in the usual orthopedic sterile fashion for the procedure. I injected the pain relieving solution in the standard sterile technique of the soft tissues of the hip carefully. Incision was made curving over the tip of the greater trochanter posteriorly. Full thickness skin flaps are raised down on the fascia emory. Fascia emory was opened in length with our incision. Charnley self-retaining hip retractor was carefully placed by the surgeon. Leg was appropriately rotated by the fast food sales assistant. Retractor was used to lift the abductors anteriorly to visualize the piriformis tendon and external rotators. Piriformis tendon and external rotators released off the greater trochanter with the Bovie. Tagging suture was placed in each of these separately. We then split the tissue superior to the piriformis tendon through capsule and onto the pelvis. Acetabular labrum was preserved. Retractors were carefully placed around the femoral neck. Displaced unstable femoral neck fracture identified. cutting guide was utilized to map out the proposed cut approximately 1 fingerbreadth above the lesser trochanter. This femoral neck cut was carried out with a saw. Fractured femoral head removed and measured and inspected. Femoral head was measured. Appropriate trial was utilized. A proximal femoral elevator utilized. We used a sharp awl entering down inside the bone of the proximal femur. Utilized the [employer] cutting osteotome the proximal lateral greater trochanteric region. The fragment removed. Broaching was then done from the smallest broach, upto the appropriate size. G ood stability was confirmed. We then trialed the construct with a standard neck length and appropriate sized femoral head. We were happy with the construct. Good stability to flexion, rotation. At this point trials removed. 2 full batches of bone cement were mixed. 2 sponges were placed in the acetabulum we prepared the canal with brushing. Cement restrictor was placed down to the appropriate depth. It was thoroughly irrigated clean and dry. When the cement was as the appropriate texture, we pressurized cement down in the femoral canal. The appropriate size stem then hammered into the proximal femur and seated down to a similar position as the trial had. Excess bone cement removed. Stem was held still while cement fully hardened. Pain relieving solution was injected while this was occurring. The cement was fully hardened, sponges were removed from the acetabulum. We now again trialed and appropriate neck length decided upon. It was then opened. Now impacted the appropriate sized femoral head, neck construct onto the clean dried trunion. Was noted to be stable. Hip was inspected, and joint was reduced for a final time. Good hip stability and leg lengths noted. This was then irrigated with Irresept solution and saline and cleaned. Next the remainder of the pain relieving solution was injected carefully throughout the soft tissues of the hip joint. Closure was carried out with a combination of #1 Vicryl repairing the hip capsule as well as piriformis tendon and external rotators to bone, running #2 strata fix in the fascia emory, followed by mid layer #1 Vicryl with #1 strata fix running. Next running 0 strata fix, followed by skin val, Xeroform, Mepilex dressing. We placed RITU hose and SCD on the operative leg. Patient awoken from the anesthetic and transferred back to room bed in recovery room in satisfactory condition. Patient will be admitted to the hospital. Hospitalist service will continue to manage the medical issues. Hopeful discharge to home or ECF in 2-3 days. This note was generated with [employer] dictation software. It may contain incorrect words, spelling, and punctuation that were not noted in checking the note before signing.
[2019-09-12 16:01] LABS: Bedside Glucose 150 mg/dL (70-110)
[2019-09-12] MEDS: Cefazolin 1 GM/50 ML BAG IV (18:31)
[2019-09-12] MEDS: Pramipexole Di-HCl 1 MG Tablet 2 MG PO (20:45)
[2019-09-12] MEDS: Docusate Sodium 100 MG Capsule PO (20:45)
[2019-09-12] MEDS: Insulin Lispro 100 UNIT/ML INSULN.PEN SC (20:58)
[2019-09-13 00:11] LABS: Bedside Glucose 279 mg/dL (70-110)
[2019-09-13] MEDS: Cefazolin 1 GM/50 ML BAG IV ×2 (00:46→06:38)
[2019-09-13 02:08] VITALS: BP 142/53; PULSE 70; RESP 18; TEMP 37.9; O2SAT 94
[2019-09-13] MEDS: Acetaminophen 325 MG Tablet 650 MG PO ×2 (02:14→15:56)
[2019-09-13 05:54] VITALS: TEMP 37.1
[2019-09-13 06:03] LABS: Absolute Lymphocyte Count 0.94 X10^3/uL (0.83-4.51); Absolute Neutrophil Count 8.6 X10^3/uL (2.0-7.7); Basophil# 0.03 X10^3/uL; Basophil% 0.3 % (0-1); Eosinophil# 0.12 X10^3/uL; Eosinophils% 1.2 % (0-5); Hematocrit 28.6 % (37-47); Lymphocyte # 0.94 X10^3/ul (4.0); Lymphocyte % 9.1 % (19-41); Mean Corp Hgb Conc 31.5 g/dL (32-36); Mean Corpuscular Volume 88.8 fL (81-99); Mean Platelet Vol. 9.9 fl (6.2-12.0); Monocyte# 0.63 X10^3/uL; Monocyte% 6.1 % (0-10); NRBC Flagged by Analyzer 0 % (0-5); Neutrophil # 8.59 X10^3/uL (2.7-7.7); Neutrophil % 83.1 % (47-70); Platelet Count 311 K/mm3 (150-450); RBC Distribution Width CV 12.8 % (11.6-14.6); RBC Distribution Width SD 41.4 fl (35.1-43.9); Red Blood Count 3.22 M/mm3 (4.2-5.4); White Blood Count 10.3 K/mm3 (4.4-11.0)
[2019-09-13 06:31] LABS: BUN 28 mg/dL (7-18); Creatinine, Serum 1.09 mg/dL (0.55-1.02); EST Glomerular Filtration Rate 52 mL/min (>60); Estimated Creatinine Clearance 42.52 ml/min; Glucose 163 mg/dL (74-106)
[2019-09-13 06:32] LABS: Anion Gap 6 (5-15); BUN/Creat Ratio 25.7 RATIO (10-20); Calcium,Total 8.3 mg/dL (8.5-10.1); Chloride 105 mmol/L (98-107); Est Glom Filt Rate - Afr Amer 63 mL/min (>60); Potassium 4.3 mmol/L (3.5-5.1); Sodium Level 135 mmol/L (136-145)
[2019-09-13] MEDS: 0.9% Normal Saline 1,000 ML 75 ML IV (06:38)
[2019-09-13] MEDS: Insulin Lispro 100 UNIT/ML INSULN.PEN SC ×5 (06:43→21:44)
[2019-09-13] MEDS: Morphine 2 MG/ML Syringe IV ×2 (06:47→15:56)
[2019-09-13 06:50] LABS: Bedside Glucose 153 mg/dL (70-110)
[2019-09-13] MEDS: Ferrous Sulfate 325 MG Tablet PO (09:56)
[2019-09-13] MEDS: Propranolol 10 MG Tablet 20 MG PO ×2 (09:56→21:44)
[2019-09-13] MEDS: Aspirin 81 MG TAB.CHEW PO ×2 (09:56→15:58)
[2019-09-13] MEDS: Docusate Sodium 100 MG Capsule PO ×2 (09:56→21:44)
[2019-09-13] MEDS: Hydroxychloroquine 200 MG Tablet PO (09:56)
[2019-09-13 10:00] VITALS: BP 152/62; PULSE 78; RESP 18; TEMP 36.8; O2SAT 93
[2019-09-13 10:05] LABS: Bedside Glucose 156 mg/dL (70-110)
--- NOTE | 2019-09-13 11:56 | CASEMGMT ---
JOSE CASAS Face to Face with patient for initial transition planning/care coordination assessment. JOSE CSAAS introduced self and role at [facility]. Patient sitting in chair, alert and oriented, family at bedside. Patient willing to participate in assessment and is able to answer all questions appropriately. Care providers, pharmacy, and demographics verified. Patient wishes to discharge SNF at discharge, list on in-network facilities provided. Patient states she has no further needs or concerns at this time. SW to follow-up with patient for SNF choices and referral. PCP: Pat Specialists: Razia Machine Tool Designer Preferred Pharmacy: [facility] Insurance: [employer] [facility] Prescription Benefit: Yes Living Will/HPOA: yes, Basilio Garcia LNOK: , son Living Arrangements: Patient lives with and son in 2 story home with bed and bath on first floor. 3 steps and railing to enter the home. Patient was independent at home prior to hospitalization. Transportation: DME/HHC: Patient has shower chair, BSC, raised toilet, cane, crutches, grab bars, walker, and wheelchair at home. Patient denies previous HHC or SNF Disposition Plan: SNF pending precert. Precious GRANADOSN, RN, CM
[2019-09-13 12:25] LABS: Bedside Glucose 271 mg/dL (70-110)
--- NOTE | 2019-09-13 12:28 | CASEMGMT ---
Addendum entered by Lupis Mcginnis 09/13/19 14:03: As per Cesar at [facility], they do have beds and will call back shortly to let SW know if they can take pt, and if so will start precert. TIESHA Rand Original Note: SW spoke w/pt and daughter, their choices are 1. [facility] or 2. [facility]. SW explained will call the facilities, fax referral, will start with [facility]. If they can take her they will start precert w/insurance. Pt and daughter state understanding. SW called [facility], message left, referral faxed. SW will continue to follow. TIESHA Rand
--- NOTE | 2019-09-13 13:21 | PCM.PN.HOSP ---
<Kamlesh York - Last Filed: 09/13/19 13:21> Patient Problems: Active and Suspected Problems Femoral neck fracture (Acute) Reason for Visit: hip pain Subjective: pain improved. no sob/cough/fevers/chills. Pt has been able to weight bear. No numbness/tingling. Vitals/I&O's: Vital Signs Temp Pulse Resp BP Pulse Ox 98.3 F 78 18 152/62 H 93 09/13/19 10:00 09/13/19 10:00 09/13/19 10:00 09/13/19 10:00 09/13/19 10:00 Oxygen Flow Rate (L/min) 2 Oxygen Delivery Method Room Air Weight: 129 lb 3.054 oz Body Mass Index (BMI) 26.1 Finger Stick Blood Glucose 150 Intake and Output for Last 24 Hours 09/11/19 09/12/19 09/13/19 23:59 23:59 23:59 Intake Total 1706.25 / 1706.25 1295.00 / 1295.00 Output Total 2625 / 2625 225 / 225 Balance -918.75 / -918.75 1070.00 / 1070.00 General: Alert, Oriented x3, Cooperative HEENT: Atraumatic, PERRLA, EOMI, Normocephalic Neck: Supple, No JVD, Negative Carotid Bruits Lungs: Clear to auscultation, Normal air movement Cardiovascular: Regular rate, No murmurs Abdomen: Bowel Sounds Present, Soft, Non Tender Extremities: No edema, Capillary Refill Less than 3 Seconds Skin: No rashes, No breakdown Musculoskeletal: No Tenderness to Palpation of Joints or Extremities Neurological: Cranial nerves II-XII grossly intact Psych/Mental Status: Normal Affect, Appropriate, Alert and oriented to time, place, person, mood and affect Laboratory Results 09/12/19 15:58: POC Glucose 150 H 09/12/19 20:57: POC Glucose 279 H 09/13/19 05:06: WBC 10.3, RBC 3.22 L, Hgb 9.0 L, Hct 28.6 L, MCV 88.8, MCH 28.0, MCHC 31.5 L, RDW Std Deviation 41.4, RDW Coeff of Fady 12.8, Plt Count 311, MPV 9.9, Immature Gran % (Auto) 0.200, Neut % (Auto) 83.1 H, Lymph % (Auto) 9.1 L, [place] % (Auto) 6.1, Eos % (Auto) 1.2, Baso % (Auto) 0.3, Absolute Neuts (auto) 8.6 H, Absolute Lymphs (auto) 0.94, Nucleated RBC % 0 09/13/19 05:06: Sodium 135 L, Potassium 4.3, Chloride 105, Carbon Dioxide 24.0, Anion Gap 6, BUN 28 H, Creatinine 1.09 H, Estim Creat Clear Calc 42.52, Est GFR (MDRD) Af Amer 63, Est GFR (MDRD) Non-Af 52 L, BUN/Creatinine Ratio 25.7 H, Glucose 163 H, Calcium 8.3 L 09/13/19 06:42: POC Glucose 153 H 09/13/19 09:55: POC Glucose 156 H 09/13/19 12:10: POC Glucose 271 H Current Medications Acetaminophen (Tylenol) 650 mg PO Q6H PRN PRN PRN Reason: Pain Score 1-10/Temp > 100.7 F Last Admin: 09/13/19 02:14 Dose: 650 mg Documented by: [facility] Last Admin: 09/13/19 09:56 Dose: 81 mg Documented by: Diphenhydramine HCl (Benadryl) 25 mg PO Q6H PRN PRN Reason: ITCHING Docusate Sodium (Colace) 100 mg PO BID [facility] Last Admin: 09/13/19 09:56 Dose: 100 mg Documented by: Ferrous Sulfate (Ferrous Sulfate) 325 mg PO 1200 [facility] Last Admin: 09/13/19 09:56 Dose: 325 mg Documented by: Glucagon () 1 mg IM .X1 PRN PRN Reason: Hypoglycemia Hydroxychloroquine Sulfate ([facility]aquenil) [facility] Last Admin: 09/13/19 09:56 Dose: 200 mg Documented by: Sodium Chloride () 1,000 mls @ 75 mls/hr IV .[id number] [facility] Last Infusion: 09/13/19 06:58 Dose: 75 mls/hr Documented by: Dextrose (Dextrose 10%-Water) 250 mls @ 999 mls/hr IV .Q16M PRN; Protocol PRN Reason: HYPOGLYCEMIA Sodium Chloride () 250 mls @ 15 mls/hr IV .[id number] PRN PRN Reason: Saline Flush Sodium Chloride () 250 mls @ 15 mls/hr IV .[id number] PRN PRN Reason: Additional IVPB Infusion Insulin Glargine (Lantus ([facility])) 29 units SC DAILY@1100 [facility] Last Admin: 09/13/19 09:56 Dose: 29 u Documented by: Insulin Human Lispro (Humalog Kwikpen ([facility])) 0 unit SC [facility]; Protocol Last Admin: 09/13/19 09:57 Dose: 2 u Documented by: Melatonin (Melatonin) 3 mg PO QHS PRN PRN PRN Reason: INSOMNIA Last Admin: 09/11/19 21:30 Dose: 3 mg Documented by: Morphine Sulfate () 2 mg IV Q3H PRN PRN PRN Reason: Pain Score 6-10/10 Last Admin: 09/13/19 06:47 Dose: 2 mg Documented by: Ondansetron HCl (Zofran) 4 mg IV Q8H PRN PRN PRN Reason: NAUSEA/VOMITING Oxycodone HCl (Oxyir) 5 mg PO Q4H PRN PRN PRN Reason: Pain Score 4-5/10 Last Admin: 09/11/19 20:20 Dose: 5 mg Documented by: Pramipexole Dihydrochloride (Mirapex) 2 mg PO QHS [facility] Last Admin: 09/12/19 20:45 Dose: 2 mg Documented by: Propranolol HCl (Inderal) 20 mg PO BID [facility] Last Admin: 09/13/19 09:56 Dose: 20 mg Documented by: Senna/Docusate Sodium (Senokot-S, Stefany-Colace) 2 tablet PO BID PRN PRN PRN Reason: Constipation Sodium Chloride () 10 - 40 ml IV UD PRN PRN Reason: SALINE FLUSH STROKE Vital Signs/Narrative: Vital Signs Temp Pulse Resp BP Pulse Ox 09/13/19 10:00 98.3 F 78 18 152/62 H 93 Medical Necessity - Tobacco Use Smoking Status: Never smoker Tobacco Use: Non-smoker Assessment/Plan All Active Problems Open wound of left lower extremity (Acute) Femoral neck fracture (Acute) 1. Left femoral neck fracture -s/p surgical repair POD#1. doing well. continue PTOT. already ambulating. 2. T2DM - continue levemir + SSI 3. RA - on plaquenil 4. CKDIII - appears at baseline 5. LE edema - with the worsening LE edema and presence of hip fracture. duplex pending DVT ppx: per ortho DC planning: currently unable to walk, normally independent. PTOT evals post op This patient was seen by Kamlesh Yokr PA-C under the supervision of Doctor Belinda. <Clark Trevino F - Last Filed: 09/13/19 14:52> Vitals/I&O's: Vital Signs Temp Pulse Resp BP Pulse Ox 99.2 F H 65 18 136/50 H 93 09/13/19 14:12 09/13/19 14:12 09/13/19 14:12 09/13/19 14:12 09/13/19 14:12 Oxygen Flow Rate (L/min) 2 Oxygen Delivery Method Room Air Weight: 129 lb 3.054 oz Body Mass Index (BMI) 26.1 Finger Stick Blood Glucose 150 Intake and Output for Last 24 Hours 09/11/19 09/12/19 09/13/19 23:59 23:59 23:59 Intake Total 1706.25 / 1706.25 1295.00 / 1295.00 Output Total 2625 / 2625 225 / 225 Balance -918.75 / -918.75 1070.00 / 1070.00 Laboratory Results 09/12/19 15:58: POC Glucose 150 H 09/12/19 20:57: POC Glucose 279 H 09/13/19 05:06: WBC 10.3, RBC 3.22 L, Hgb 9.0 L, Hct 28.6 L, MCV 88.8, MCH 28.0, MCHC 31.5 L, RDW Std Deviation 41.4, RDW Coeff of Fady 12.8, Plt Count 311, MPV 9.9, Immature Gran % (Auto) 0.200, Neut % (Auto) 83.1 H, Lymph % (Auto) 9.1 L, [place] % (Auto) 6.1, Eos % (Auto) 1.2, Baso % (Auto) 0.3, Absolute Neuts (auto) 8.6 H, Absolute Lymphs (auto) 0.94, Nucleated RBC % 0 09/13/19 05:06: Sodium 135 L, Potassium 4.3, Chloride 105, Carbon Dioxide 24.0, Anion Gap 6, BUN 28 H, Creatinine 1.09 H, Estim Creat Clear Calc 42.52, Est GFR (MDRD) Af Amer 63, Est GFR (MDRD) Non-Af 52 L, BUN/Creatinine Ratio 25.7 H, Glucose 163 H, Calcium 8.3 L 09/13/19 06:42: POC Glucose 153 H 09/13/19 09:55: POC Glucose 156 H 09/13/19 12:10: POC Glucose 271 H Current Medications Acetaminophen (Tylenol) 650 mg PO Q6H PRN PRN PRN Reason: Pain Score 1-10/Temp > 100.7 F Last Admin: 09/13/19 02:14 Dose: 650 mg Documented by: Aspirin [facility], Baby) [facility] Last Admin: 09/13/19 09:56 Dose: 81 mg Documented by: Diphenhydramine HCl (Benadryl) 25 mg PO Q6H PRN PRN Reason: ITCHING Docusate Sodium (Colace) 100 mg PO BID [facility] Last Admin: 09/13/19 09:56 Dose: 100 mg Documented by: Ferrous Sulfate (Ferrous Sulfate) 325 mg PO 1200 [facility] Last Admin: 09/13/19 09:56 Dose: 325 mg Documented by: Glucagon () 1 mg IM .X1 PRN PRN Reason: Hypoglycemia Hydroxychloroquine Sulfate ([facility]aquenil) [facility] Last Admin: 09/13/19 09:56 Dose: 200 mg Documented by: Sodium Chloride () 1,000 mls @ 75 mls/hr IV .[id number] [facility] Last Infusion: 09/13/19 06:58 Dose: 75 mls/hr Documented by: Dextrose (Dextrose 10%-Water) 250 mls @ 999 mls/hr IV .Q16M PRN; Protocol PRN Reason: HYPOGLYCEMIA Sodium Chloride () 250 mls @ 15 mls/hr IV .[id number] PRN PRN Reason: Saline Flush Sodium Chloride () 250 mls @ 15 mls/hr IV .[id number] PRN PRN Reason: Additional IVPB Infusion Insulin Glargine (Lantus ([facility])) 29 units SC DAILY@1100 [facility] Last Admin: 09/13/19 09:56 Dose: 29 u Documented by: Insulin Human Lispro (Humalog Kwikpen ([facility])) 0 unit SC [facility]; Protocol Last Admin: 09/13/19 09:57 Dose: 2 u Documented by: Melatonin (Melatonin) 3 mg PO QHS PRN PRN PRN Reason: INSOMNIA Last Admin: 09/11/19 21:30 Dose: 3 mg Documented by: Morphine Sulfate () 2 mg IV Q3H PRN PRN PRN Reason: Pain Score 6-10/10 Last Admin: 09/13/19 06:47 Dose: 2 mg Documented by: Ondansetron HCl (Zofran) 4 mg IV Q8H PRN PRN PRN Reason: NAUSEA/VOMITING Oxycodone HCl (Oxyir) 5 mg PO Q4H PRN PRN PRN Reason: Pain Score 4-5/10 Last Admin: 09/11/19 20:20 Dose: 5 mg Documented by: Pramipexole Dihydrochloride (Mirapex) 2 mg PO QHS [facility] Last Admin: 09/12/19 20:45 Dose: 2 mg Documented by: Propranolol HCl (Inderal) 20 mg PO BID [facility] Last Admin: 09/13/19 09:56 Dose: 20 mg Documented by: Senna/Docusate Sodium (Senokot-S, Stefany-Colace) 2 tablet PO BID PRN PRN PRN Reason: Constipation Sodium Chloride () 10 - 40 ml IV UD PRN PRN Reason: SALINE FLUSH STROKE Vital Signs/Narrative: Vital Signs Temp Pulse Resp BP Pulse Ox 09/13/19 14:12 99.2 F H 65 18 136/50 H 93 Code Visit Addendum: Dr. Trevino I personally examined the patient and reviewed the chart. I agree with the above. 74-year-old female fell about a week ago presented with left hip pain and was found to be fractured. She was taken to the OR yesterday and has been doing well since. Her pain is a bit better controlled. Also she had an A1c that was elevated 9.1 and she was started on insulin and her blood sugars have been controlled into the 160s on her BMPs however her fingersticks have been much higher than that therefore will make adjustments as necessary, unfortunate she did not get her Lantus yesterday before surgery which is likely playing a role. Inpatient E&M: 64160 Subs Hosp L2
[2019-09-13] MEDS: oxyCODONE 5 MG Tablet PO (14:10)
[2019-09-13 14:12] VITALS: BP 136/50; PULSE 65; RESP 18; TEMP 37.3; O2SAT 93
--- NOTE | 2019-09-13 14:45 | CASEMGMT ---
Social Work Note SW received call from Myriam at [facility] stating she is able to accept pt and will submit for pre-cert. Plan: [facility] pending pre-cert Precious Chavez INTERFACE DEVELOPER, TRAIN INSPECTOR
--- NOTE | 2019-09-13 14:56 | CHAPLAIN ---
Type of Pastoral Visit _x__ Initial Visit ___ Follow-up Visit ___ On-call Visit ___ General Patient Visit ___ Spiritual Assessment ___ Family Conference ___ Bereavement ___ Rapid Response ___ Code Blue ___ Other (describe below) Pastoral Care Referral From _x__ Patient ___ Family ___ Nurse ___ Physician ___ Political Scientist ___ Nurse Behavioral Health Care ___ Other (describe below) Sacrament/Intervention _x__ Active listening ___ Anointing ___ Alevism ___ Bereavement ___ Communion ___ Jessica exploration ___ ___ Life review _x__ Prayer ___ Reconciliation ___ Sacrament of Sick ___ Supportive presence ___ Wedding ___ Other (describe below) Pastoral Comments
[2019-09-13] MEDS: 0.9% Saline Lock 10 ML Syringe IV (15:56)
[2019-09-13 16:06] LABS: Bedside Glucose 327 mg/dL (70-110)
--- NOTE | 2019-09-13 17:16 | PCM.PN.ORT ---
Patient Problems: Active and Suspected Problems Femoral neck fracture (Acute) Subjective: Patient seen with her family present. She states her left hip pain is much better now than before surgery. She is planning on discharge to [facility] in a day or 2. She denies chest pain or shortness of breath. No productive cough. Pain well controlled on pain medication. Physical therapy been working with her. Objective: Left hip bandages on clean and dry. Left and right leg are equally aligned with good leg lengths. No calf pain or swelling bilaterally. Negative Homans sign bilaterally. She has a soft tissue bandage over her right lower extremity leg wounds. No pain with axial loading of the hips. Good active motion toes and ankles. Mepilex dressing on left hip without signs of infection X-rays AP pelvis lateral left hip shows a cemented bipolar hemiarthroplasty in good position without obvious loosening failure fracture. Laboratory work and vital signs reviewed Notes from hospitalist reviewed Ultrasound report negative for DVT lower extremities - Physical Exam Vitals/I&O's: Vital Signs Temp Pulse Resp BP Pulse Ox 99.2 F H 65 18 136/50 H 93 09/13/19 14:12 09/13/19 14:12 09/13/19 14:12 09/13/19 14:12 09/13/19 14:12 Oxygen Flow Rate (L/min) 2 Oxygen Delivery Method Room Air Weight: 58.6 kg Body Mass Index (BMI) 26.1 Finger Stick Blood Glucose 150 Intake and Output for Last 24 Hours 09/11/19 09/12/19 09/13/19 23:59 23:59 23:59 Intake Total 1706.25 / 1706.25 1295.00 / 1295.00 Output Total 2625 / 2625 225 / 225 Balance -918.75 / -918.75 1070.00 / 1070.00 Laboratory Results 09/12/19 20:57: POC Glucose 279 H 09/13/19 05:06: WBC 10.3, RBC 3.22 L, Hgb 9.0 L, Hct 28.6 L, MCV 88.8, MCH 28.0, MCHC 31.5 L, RDW Std Deviation 41.4, RDW Coeff of Fady 12.8, Plt Count 311, MPV 9.9, Immature Gran % (Auto) 0.200, Neut % (Auto) 83.1 H, Lymph % (Auto) 9.1 L, [place] % (Auto) 6.1, Eos % (Auto) 1.2, Baso % (Auto) 0.3, Absolute Neuts (auto) 8.6 H, Absolute Lymphs (auto) 0.94, Nucleated RBC % 0 09/13/19 05:06: Sodium 135 L, Potassium 4.3, Chloride 105, Carbon Dioxide 24.0, Anion Gap 6, BUN 28 H, Creatinine 1.09 H, Estim Creat Clear Calc 42.52, Est GFR (MDRD) Af Amer 63, Est GFR (MDRD) Non-Af 52 L, BUN/Creatinine Ratio 25.7 H, Glucose 163 H, Calcium 8.3 L 09/13/19 06:42: POC Glucose 153 H 09/13/19 09:55: POC Glucose 156 H 09/13/19 12:10: POC Glucose 271 H 09/13/19 15:56: POC Glucose 327 H Current Medications Acetaminophen (Tylenol) 650 mg PO Q6H PRN PRN PRN Reason: Pain Score 1-10/Temp > 100.7 F Last Admin: 09/13/19 15:56 Dose: 650 mg Documented by: [facility] ([facility], [facility]) [facility] Last Admin: 09/13/19 15:58 Dose: 81 mg Documented by: Diphenhydramine HCl (Benadryl) 25 mg PO Q6H PRN PRN Reason: ITCHING Docusate Sodium (Colace) 100 mg PO BID [facility] Last Admin: 09/13/19 09:56 Dose: 100 mg Documented by: Ferrous Sulfate (Ferrous Sulfate) 325 mg PO 1200 [facility] Last Admin: 09/13/19 09:56 Dose: 325 mg Documented by: Glucagon () 1 mg IM .X1 PRN PRN Reason: Hypoglycemia Hydroxychloroquine Sulfate (Plaquenil) [facility] Last Admin: 09/13/19 09:56 Dose: 200 mg Documented by: Sodium Chloride () 1,000 mls @ 75 mls/hr IV .[id number] [facility] Last Infusion: 09/13/19 06:58 Dose: 75 mls/hr Documented by: Dextrose (Dextrose 10%-Water) 250 mls @ 999 mls/hr IV .Q16M PRN; Protocol PRN Reason: HYPOGLYCEMIA Sodium Chloride () 250 mls @ 15 mls/hr IV .[id number] PRN PRN Reason: Saline Flush Sodium Chloride () 250 mls @ 15 mls/hr IV .[id number] PRN PRN Reason: Additional IVPB Infusion Insulin Glargine (Lantus (Bkc)) 29 units SC DAILY@1100 [facility] Last Admin: 09/13/19 09:56 Dose: 29 u Documented by: Insulin Human Lispro (Humalog Kwikpen (Bk)) 0 unit SC ACHS [facility]; Protocol Last Admin: 09/13/19 15:57 Dose: 8 u Documented by: Insulin Human Lispro (Humalog Kwikpen (Bk)) 5 unit SC TIDAC [facility] Last Admin: 09/13/19 15:57 Dose: 5 u Documented by: Melatonin (Melatonin) 3 mg PO QHS PRN PRN PRN Reason: INSOMNIA Last Admin: 09/11/19 21:30 Dose: 3 mg Documented by: Morphine Sulfate () 2 mg IV Q3H PRN PRN PRN Reason: Pain Score 6-10/10 Last Admin: 09/13/19 15:56 Dose: 2 mg Documented by: Ondansetron HCl (Zofran) 4 mg IV Q8H PRN PRN PRN Reason: NAUSEA/VOMITING Oxycodone HCl (Oxyir) 5 mg PO Q4H PRN PRN PRN Reason: Pain Score 4-5/10 Last Admin: 09/13/19 14:10 Dose: 5 mg Documented by: Pramipexole Dihydrochloride (Mirapex) 2 mg PO QHS [facility] Last Admin: 09/12/19 20:45 Dose: 2 mg Documented by: Propranolol HCl (Inderal) 20 mg PO BID [facility] Last Admin: 09/13/19 09:56 Dose: 20 mg Documented by: Senna/Docusate Sodium (Senokot-S, Stefany-Colace) 2 tablet PO BID PRN PRN PRN Reason: Constipation Sodium Chloride () 10 - 40 ml IV UD PRN PRN Reason: SALINE FLUSH Last Admin: 09/13/19 15:56 Dose: 10 ml Documented by: Medical Necessity - Tobacco Use Smoking Status: Never smoker Tobacco Use: Non-smoker Assessment/Plan All Active Problems Open wound of left lower extremity (Acute) Femoral neck fracture (Acute) Left hip postoperative day #1 hemiarthroplasty continue current treatment. Aspirin for DVT prevention. RITU head and MITULs. Incentive spirometer use. Plan discharge to [facility] when arrangements made. Follow-up in orthopedic office in 10 to 12 days for evaluation, x-rays, staple removal. Orthopedics will sign off. Can be renotified if needed. Mild blood loss anemia. Continue management per hospitalist service
[2019-09-13] MEDS: Pramipexole Di-HCl 1 MG Tablet 2 MG PO (21:44)
[2019-09-13 21:48] VITALS: BP 133/44; PULSE 61; RESP 16; TEMP 37.1; O2SAT 97
[2019-09-13 22:11] LABS: Bedside Glucose 163 mg/dL (70-110)
[2019-09-14 04:57] VITALS: BP 150/55; PULSE 62; RESP 16; TEMP 37.2; O2SAT 95
[2019-09-14 05:56] LABS: Hematocrit 28.7 % (37-47); Hemoglobin 9.3 g/dL (12.0-15.0)
[2019-09-14] MEDS: Docusate Sodium 100 MG Capsule PO (08:28)
[2019-09-14] MEDS: Aspirin 81 MG TAB.CHEW PO (08:28)
[2019-09-14] MEDS: Hydroxychloroquine 200 MG Tablet PO (08:28)
[2019-09-14 08:30] VITALS: BP 153/59; PULSE 64; RESP 16; TEMP 37.6; O2SAT 96
[2019-09-14] MEDS: Propranolol 10 MG Tablet 20 MG PO (08:34)
[2019-09-14] MEDS: Ferrous Sulfate 325 MG Tablet PO (08:35)
[2019-09-14 09:31] LABS: Bedside Glucose 98 mg/dL (70-110)
--- NOTE | 2019-09-14 10:27 | PCM.EXTCARCO ---
- Diet 09/12/19 17:45 Diet: Calorie Controlled Food consistency:: Regular Liquid Consistency:: Regular/Thin Is pt able to select menu?: Yes How many daily calories?: 1800 calorie - Routine Orders/Code Status Suppository Type: Dulcolax 10mg Suppository Frequency: Daily PRN Routine Lab Work: CBC - 5 days, BMP - 5 days Code Status: Full Code - Wound(s) R. leg Wound Type: Neuropathic/Diabetic Foot Ulcer LEFT LEG Wound Type: Surgical Incision left hip Wound Type: Surgical Incision - Therapies Weight Bearing: Weight bearing as tolerated Physical Therapy: Eval and Treat Occupational Therapy: Eval and Treat - Problem/Diagnosis (1) Femoral neck fracture Status: Acute Current Visit: Yes (2) CKD (chronic kidney disease), stage III Status: Chronic Current Visit: No (3) Rheumatoid arthritis Status: Chronic Current Visit: No (4) T2DM (type 2 diabetes mellitus) Status: Chronic Current Visit: No - Allergies/Procedures Done in Hospital Allergies/Adverse Reactions: Allergies No Known Allergies Allergy (Verified 09/07/19 14:49) Procedures: None - Type of Care/Length of Stay Estimated LOS: Convalescent Care Less Than 30 days Type of Care Needed: Skilled Rehab Potential: Fair Prognosis: Fair - Additional Orders/Day of Discharge Day of Discharge: 09/14/19 - Dietary and Speech Recommendations Dietitian Recommendations/Changes: Rec diet advanced as pt medically able to Regular. Rec Cooper 1 packet BID to promote pt wound healing. - Follow Up Care Primary Care Physician: Leonard Stewart DO [Primary Care Provider] - Please follow up with your Primary Care Physician in: 1-2 weeks Please Follow Up With: Sourav Karimi MD When: 10-12 days
--- NOTE | 2019-09-14 11:01 | CASEMGMT ---
Addendum entered by Precious Chavez 09/14/19 11:53: SW in to speak with pt. Pt states she called her daughter and her daughter will be at [facility] around 2:30pm to transport pt. SW placed a call to Myriam at [facility] and updated her on transportation time. RN updated. Plan: [facility] skilled today with pt's daughter transporting via private vehicle at 2:30pm Original Note: Social Work Note SW received call from Myriam at [facility] stating pre-cert has been obtained and pt is able to discharge today. Per physician, pt is medically cleared for discharge. SW faxed completed discharge paperwork to [facility] including transfer to extended care facility, signed medication list and any scripts. Original in SNF folder and copy on pt's chart. GALILEO completed convalescent [facility] in [facility], original in SNF folder and copy on pt's chart. SW in to speak with pt. SW updated pt on approval and discharge to [facility]. Pt states she would like to call her daughter to see if her daughter is able to transport pt. SW informed pt that once she calls her daughter to let RN know what time her daughter will be at [facility] to transport pt. Pt states understanding. Plan: [facility] skilled today. Pt calling daughter to determine if pt's daughter is able to transport pt Precious Chavez SUEDING MACHINE TENDER, USER EXPERIENCE ANALYST
[2019-09-14] MEDS: Pramipexole Di-HCl 1 MG Tablet 2 MG PO (11:17)
[2019-09-14] MEDS: Insulin Lispro 100 UNIT/ML INSULN.PEN SC ×2 (11:20→11:21)
[2019-09-14 12:06] LABS: Bedside Glucose 234 mg/dL (70-110)
[2019-09-14 13:20] VITALS: BP 134/61; PULSE 63; RESP 16; TEMP 36.8; O2SAT 98
[2019-09-14] MEDS: oxyCODONE 5 MG Tablet PO (13:20)
--- NOTE | 2019-09-14 13:55 | NURSING ---
report called to JOSE Crisostomo at [facility] prior to discharge.
--- NOTE | 2019-09-14 13:56 | DS.PCM_ITS ---
<Kamlesh York - Last Filed: 09/14/19 13:56> Discharge Date and Diagnosis - Problem List Patient Problems: Active and Suspected Problems Femoral neck fracture (Acute) Date of Admission: 09/11/19 Date of Discharge: 09/14/19 - Primary Discharge Diagnosis Active and Suspected Problems Femoral neck fracture (Acute), atruamatic CKD stage III Rheumatoid arthritis Type 2 diabetes Venous dermatitis bilateral lower extremities - Secondary Discharge Diagnosis Chronic Problems Venous stasis dermatitis of both lower extremities (Chronic) Ulcer of right lower extremity with fat layer exposed (Chronic) Venous stasis ulcer of right lower leg with edema of right lower leg (Chronic) T2DM (type 2 diabetes mellitus) (Chronic) Rheumatoid arthritis (Chronic) CKD (chronic kidney disease), stage III (Chronic) Hospital Course and Treatment Imaging Results: pelvic xray: IMPRESSION: Acute left-sided femoral neck fracture with external rotation and foreshortening of the femoral neck CXR: IMPRESSION: Mild pulmonary congestive changes. No consolidative process or pneumothorax. RAD/Hip Min 2 Views (Portable) IMPRESSION: Expected appearance of left total hip arthroplasty. No unexpected foreign bodies. Severe atherosclerosis. BL venous US: negative for DVTs Consults: [facility] Operations: - - left hip cemented hemiarthroplasty Procedures: None Summary of Care Provided: Hospital Course: The patient is a 74 year old F past medical history of type 2 diabetes, CKD stage III, rheumatoid arthritis, who presented to the emergency room with complaints of left hip pain. The pain started about a week prior and had progressively worsened to the point where she could not walk. She denied any inciting injury. Did not hear any pop or crack. In the emergency room x-ray of the pelvis revealed a left femoral neck fracture. Orthopedics was consulted and she was admitted to the general medical floor. She was taken for successful surgical repair on September 12. Following the operation she was placed on aspirin twice daily per Ortho. She did have lower extremity edema however a venous ultrasound was negative for DVTs. She does have chronic wounds and wound care was provided and she will need ongoing wound care for her lower extremities. She remained significantly debilitated postop however she was ambulatory. She was [place] go [place] [facility]. She was agreeable. She was discharged to SNF in stable condition. She will need follow-up with orthopedics in 7 to 10 days. She should follow-up with the wound care center as directed. She will need to follow-up with her PCP in 1 to 2 weeks. This patient was seen by Kamlesh York PA-C under the supervision of Doctor Belinda. [] Patient Problems: Active and Suspected Problems Femoral neck fracture (Acute) - Physical Exam Vitals/I&O's: Vital Signs Temp Pulse Resp BP Pulse Ox 98.2 F 63 16 134/61 H 98 09/14/19 13:20 09/14/19 13:20 09/14/19 13:20 09/14/19 13:20 09/14/19 13:20 Oxygen Flow Rate (L/min) 2 Oxygen Delivery Method Room Air Weight: 129 lb 3.054 oz Body Mass Index (BMI) 26.1 Finger Stick Blood Glucose 150 Intake and Output for Last 24 Hours 09/12/19 09/13/19 09/14/19 23:59 23:59 23:59 Intake Total 1706.25 / 1706.25 3353.75 / 3353.75 500 / 500 Output Total 2625 / 2625 1500 / 1500 Balance -918.75 / -918.75 1853.75 / 1853.75 500 / 500 General: Alert, Oriented x3, Cooperative HEENT: Atraumatic, PERRLA, EOMI, Normocephalic Neck: Supple, No JVD, Negative Carotid Bruits Lungs: Clear to auscultation, Normal air movement Cardiovascular: Regular rate, No murmurs Abdomen: Bowel Sounds Present, Soft, Non Tender Extremities: No edema, Capillary Refill Less than 3 Seconds Skin: No rashes, No breakdown Musculoskeletal: No Tenderness to Palpation of Joints or Extremities Neurological: Cranial nerves II-XII grossly intact Psych/Mental Status: Normal Affect, Appropriate, Alert and oriented to time, place, person, mood and affect Laboratory Results 09/13/19 15:56: POC Glucose 327 H 09/13/19 21:33: POC Glucose 163 H 09/14/19 05:20: Hgb 9.3 L, Hct 28.7 L 09/14/19 08:32: POC Glucose 98 09/14/19 11:19: POC Glucose 234 H Current Medications Acetaminophen (Tylenol) 650 mg PO Q6H PRN PRN PRN Reason: Pain Score 1-10/Temp > 100.7 F Last Admin: 09/13/19 15:56 Dose: 650 mg Documented by: Aspir[facility] ([facility], Baby) [facility] Last Admin: 09/14/19 08:28 Dose: 81 mg Documented by: Diphenhydramine HCl (Benadryl) 25 mg PO Q6H PRN PRN Reason: ITCHING Docusate Sodium (Colace) 100 mg PO BID [facility] Last Admin: 09/14/19 08:28 Dose: 100 mg Documented by: Ferrous Sulfate (Ferrous Sulfate) 325 mg PO 1200 [facility] Last Admin: 09/14/19 08:35 Dose: 325 mg Documented by: Glucagon () 1 mg IM .X1 PRN PRN Reason: Hypoglycemia Hydroxychloroquine Sulfate (Plaquenil) [facility] Last Admin: 09/14/19 08:28 Dose: 200 mg Documented by: Dextrose (Dextrose 10%-Water) 250 mls @ 999 mls/hr IV .Q16M PRN; Protocol PRN Reason: HYPOGLYCEMIA Sodium Chloride () 250 mls @ 15 mls/hr IV .[id number] PRN PRN Reason: Saline Flush Sodium Chloride () 250 mls @ 15 mls/hr IV .[id number] PRN PRN Reason: Additional IVPB Infusion Insulin Glargine (Lantus (Bkc)) 29 units SC DAILY@1100 [facility] Last Admin: 09/14/19 08:33 Dose: 29 u Documented by: Insulin Human Lispro (Humalog Kwikpen (Bkc)) 0 unit SC ACHS [facility]; Protocol Last Admin: 09/14/19 11:20 Dose: 4 u Documented by: Insulin Human Lispro (Humalog Kwikpen (Bkc)) 5 unit SC TIDAC [facility] Last Admin: 09/14/19 11:21 Dose: 5 u Documented by: Melatonin (Melatonin) 3 mg PO QHS PRN PRN PRN Reason: INSOMNIA Last Admin: 09/11/19 21:30 Dose: 3 mg Documented by: Morphine Sulfate () 2 mg IV Q3H PRN PRN PRN Reason: Pain Score 6-10/10 Last Admin: 09/13/19 15:56 Dose: 2 mg Documented by: Ondansetron HCl (Zofran) 4 mg IV Q8H PRN PRN PRN Reason: NAUSEA/VOMITING Oxycodone HCl (Oxyir) 5 mg PO Q4H PRN PRN PRN Reason: Pain Score 4-5/10 Last Admin: 09/14/19 13:20 Dose: 5 mg Documented by: Pramipexole Dihydrochloride (Mirapex) 2 mg PO QHS [facility] Last Admin: 09/13/19 21:44 Dose: 2 mg Documented by: Propranolol HCl (Inderal) 20 mg PO BID [facility] Last Admin: 09/14/19 08:34 Dose: 20 mg Documented by: Senna/Docusate Sodium (Senokot-S, Stefany-Colace) 2 tablet PO BID PRN PRN PRN Reason: Constipation Sodium Chloride () 10 - 40 ml IV UD PRN PRN Reason: SALINE FLUSH Last Admin: 09/13/19 15:56 Dose: 10 ml Documented by: Discharge Diet: Low fat/ Low Cholesterol, 2000 mg Sodium Diet Discharge Activity: Return to Normal Activity Home Medications: Medications to take at Discharge Ferrous Sulfate [Iron] 325 mg PO DAILY 08/14/17 Pramipexole Di-HCl [Mirapex] 2 mg PO QHS 08/14/17 Propranolol HCl 20 mg PO BID 10/28/18 Hydroxychloroquine Sulfate [Plaquenil] 200 mg PO DAILY 09/07/19 Insulin Detemir [Levemir FlexPen] 29 units SUBCUT DAILY 09/07/19 Acetaminophen [Tylenol Tablet] 650 mg PO Q6H PRN PRN tab 09/14/19 Aspirin [Aspirin, Baby] 81 mg PO BIDCM tab.chew 09/14/19 Docusate Sodium [Colace] 100 mg PO BID cap 09/14/19 Insulin Lispro [Humalog KwikPen] 5 unit SUBCUT TIDAC insuln.pen 09/14/19 Oxycodone [Oxyir] 5 mg PO Q4H PRN PRN 3 Days #18 tab 09/14/19 Senna/Docusate Sodium [Senokot-S] 2 tab PO BID PRN PRN tab 09/14/19 Following Prescrptions Were Given to Patient: Oxycodone [Oxyir] 5 mg PO Q4H PRN PRN 3 Days #18 tab PRN Reason: Pain Score 6-10/10 Prescription Printed Primary Care Physician: Leonard Stewart DO [Primary Care Provider] - Please follow up with your Primary Care Physician in: 1-2 weeks Please Follow Up With: Sourav Karimi MD When: 10-12 days Disposition: [facility] facility Minutes spent on discharge:: 35 Medical Necessity - Tobacco Use Smoking Status: Never smoker Tobacco Use: Non-smoker Meaningful Use Info Meaningful Use Diagnoses (Choose all that apply): None applicable <Clark Trevino F - Last Filed: 09/14/19 14:22> Discharge Date and Diagnosis - Primary Discharge Diagnosis Active and Suspected Problems Femoral neck fracture (Acute) - Secondary Discharge Diagnosis Chronic Problems Venous stasis dermatitis of both lower extremities (Chronic) Ulcer of right lower extremity with fat layer exposed (Chronic) Venous stasis ulcer of right lower leg with edema of right lower leg (Chronic) T2DM (type 2 diabetes mellitus) (Chronic) Rheumatoid arthritis (Chronic) CKD (chronic kidney disease), stage III (Chronic) Hospital Course and Treatment Summary of Care Provided: The patient is a 74 year old F [] - Physical Exam Vitals/I&O's: Vital Signs Temp Pulse Resp BP Pulse Ox 98.2 F 63 16 134/61 H 98 09/14/19 13:20 09/14/19 13:20 09/14/19 13:20 09/14/19 13:20 09/14/19 13:20 Oxygen Flow Rate (L/min) 2 Oxygen Delivery Method Room Air Weight: 129 lb 3.054 oz Body Mass Index (BMI) 26.1 Finger Stick Blood Glucose 150 Intake and Output for Last 24 Hours 09/12/19 09/13/19 09/14/19 23:59 23:59 23:59 Intake Total 1706.25 / 1706.25 3353.75 / 3353.75 500 / 500 Output Total 2625 / 2625 1500 / 1500 Balance -918.75 / -918.75 1853.75 / 1853.75 500 / 500 Laboratory Results 09/13/19 15:56: POC Glucose 327 H 09/13/19 21:33: POC Glucose 163 H 09/14/19 05:20: Hgb 9.3 L, Hct 28.7 L 09/14/19 08:32: POC Glucose 98 09/14/19 11:19: POC Glucose 234 H Current Medications Acetaminophen (Tylenol) 650 mg PO Q6H PRN PRN PRN Reason: Pain Score 1-10/Temp > 100.7 F Last Admin: 09/13/19 15:56 Dose: 650 mg Documented by: Aspirin ([facility]in, Baby) [facility] Last Admin: 09/14/19 08:28 Dose: 81 mg Documented by: Diphenhydramine HCl (Benadryl) 25 mg PO Q6H PRN PRN Reason: ITCHING Docusate Sodium (Colace) 100 mg PO BID [facility] Last Admin: 09/14/19 08:28 Dose: 100 mg Documented by: Ferrous Sulfate (Ferrous Sulfate) 325 mg PO 1200 [facility] Last Admin: 09/14/19 08:35 Dose: 325 mg Documented by: Glucagon () 1 mg IM .X1 PRN PRN Reason: Hypoglycemia Hydroxychloroquine Sulfate (Plaquenil) [facility] Last Admin: 09/14/19 08:28 Dose: 200 mg Documented by: Dextrose (Dextrose 10%-Water) 250 mls @ 999 mls/hr IV .Q16M PRN; Protocol PRN Reason: HYPOGLYCEMIA Sodium Chloride () 250 mls @ 15 mls/hr IV .[id number] PRN PRN Reason: Saline Flush Sodium Chloride () 250 mls @ 15 mls/hr IV .[id number] PRN PRN Reason: Additional IVPB Infusion Insulin Glargine (Lantus (Bkc)) 29 units SC DAILY@1100 [facility] Last Admin: 09/14/19 08:33 Dose: 29 u Documented by: Insulin Human Lispro (Humalog Kwikpen (Bkc)) 0 unit SC ACHS [facility]; Protocol Last Admin: 09/14/19 11:20 Dose: 4 u Documented by: Insulin Human Lispro (Humalog Kwikpen (Bkc)) 5 unit SC TIDAC [facility] Last Admin: 09/14/19 11:21 Dose: 5 u Documented by: Melatonin (Melatonin) 3 mg PO QHS PRN PRN PRN Reason: INSOMNIA Last Admin: 09/11/19 21:30 Dose: 3 mg Documented by: Morphine Sulfate () 2 mg IV Q3H PRN PRN PRN Reason: Pain Score 6-10/10 Last Admin: 09/13/19 15:56 Dose: 2 mg Documented by: Ondansetron HCl (Zofran) 4 mg IV Q8H PRN PRN PRN Reason: NAUSEA/VOMITING Oxycodone HCl (Oxyir) 5 mg PO Q4H PRN PRN PRN Reason: Pain Score 4-5/10 Last Admin: 09/14/19 13:20 Dose: 5 mg Documented by: Pramipexole Dihydrochloride (Mirapex) 2 mg PO QHS [facility] Last Admin: 09/13/19 21:44 Dose: 2 mg Documented by: Propranolol HCl (Inderal) 20 mg PO BID [facility] Last Admin: 09/14/19 08:34 Dose: 20 mg Documented by: Senna/Docusate Sodium (Senokot-S, Stefany-Colace) 2 tablet PO BID PRN PRN PRN Reason: Constipation Sodium Chloride () 10 - 40 ml IV UD PRN PRN Reason: SALINE FLUSH Last Admin: 09/13/19 15:56 Dose: 10 ml Documented by: Code Visit Addendum: Dr. Trevino I personally examined the patient and reviewed the chart. I agree with the above. 74-year-old female who fell about a week ago presented with a left hip pain was found to have a left hip fracture. She had walked on it for about a week with her walker. She was taken to the OR and had it surgically repaired. She states that her pain is better controlled however she still is having difficulty ambulating and therefore will need to be discharged to a [place] [facility] facility for further rehab. Her blood sugars were little bit on [id number] and therefore she was added on mealtime insulin 5 units 3 times daily, this can obviously be adjusted as well as her Levemir which is 29 units daily. To follow-up with her PCP and orthopedic surgery as an outpatient. Inpatient E&M: [id number] [facility] H[facility]
== END 2019-09-14 14:24 | disposition skilled nursing facility (03) | DRG 470 ==
LOC: ED 15:49 → MS3 16:49
PROVIDERS: Anesthesiology; Physician Assistant; Admitting Provider Family Medicine; Emergency Provider Emergency Medicine; PCP Family Medicine; Visit Provider Orthopaedic Surgery
PROC: 0SRS0J9 Replacement of Left Hip Joint, Femoral Surface with Synthetic Substitute, Cemented, Open Approach (ICD-10-PCS; CPT 27125; principal; 2019-09-12 15:00)
DX: M84.452A Pathological fracture, left femur, initial encounter for fracture (principal); L97.819 Non-pressure chronic ulcer of other part of right lower leg with unspecified severity; L97.812 Non-pressure chronic ulcer of other part of right lower leg with fat layer exposed; M06.9 Rheumatoid arthritis, unspecified; N18.3 Chronic kidney disease, stage 3 (moderate); I87.2 Venous insufficiency (chronic) (peripheral); E11.65 Type 2 diabetes mellitus with hyperglycemia; Z79.4 Long term (current) use of insulin; Z79.899 Other long term (current) drug therapy; D50.0 Iron deficiency anemia secondary to blood loss (chronic); I83.018 Varicose veins of right lower extremity with ulcer other part of lower leg; E11.22 Type 2 diabetes mellitus with diabetic chronic kidney disease
CPT/HCPCS: 29580; 36415; 71045; 73502; 80048; 82962; 83036; 85014; 85018; 85025; 85610; 85730; 86850; 86900; 86901; 87077; 87186; 88305; 88311; 93005; 93970; 97162; 97167; 97530; 99251; 99284; C1776; J7030; A4216; G0463; J2405

== ENCOUNTER 2019-10-01 10:45 | Outpatient (RCR) | payer MEDICARE, OTHER, SELFPAY ==
[2019-09-07 14:27] VITALS: BP 97/49; PULSE 54; RESP 16; TEMP 36.6; BMI 30.2
--- NOTE | 2019-09-07 16:35 | HP.PCM_ITS ---
(1) Venous stasis ulcer of right lower leg with edema of right lower leg Status: Chronic Current Visit: Yes Code(s): I83.019 - Varicose veins of right lower extremity with ulcer of unspecified site; I83.891 - Varicose veins of right lower extremity with other complications; L97.919 - Non-pressure chronic ulcer of unspecified part of right lower leg with unspecified severity; R60.9 - Edema, unspecified (2) Venous stasis dermatitis of both lower extremities Status: Chronic Current Visit: Yes Code(s): I87.2 - Venous insufficiency (chronic) (peripheral) (3) Ulcer of right lower extremity with fat layer exposed Status: Chronic Current Visit: Yes Code(s): L97.912 - Non-pressure chronic ulcer of unspecified part of right lower leg with fat layer exposed (4) T2DM (type 2 diabetes mellitus) Status: Chronic Current Visit: Yes Qualifiers: Diabetes mellitus group home insulin use: with long winder tender use Diabetes mellitus complication status: with skin complications Diabetes mellitus complication detail: with other skin ulcer Qualified Code(s): E11.622 - Type 2 diabetes mellitus with other skin ulcer; Z79.4 - retirement (current) use of insulin Code(s): E11.9 - Type 2 diabetes mellitus without complications (5) Rheumatoid arthritis Status: Chronic Current Visit: Yes Code(s): M06.9 - Rheumatoid arthritis, unspecified (6) CKD (chronic kidney disease), stage III Status: Chronic Current Visit: Yes Code(s): N18.3 - Chronic kidney disease, stage 3 (moderate) History of Present Illness Date of Service: 09/07/19 Chief Complaint: swelling and non-healing wounds of right lower extremity History of Wound: Ms. Garcia is a pleasant 74-year-old female who [facility] for evaluation and treatment of swelling and non-healing wounds of RLE. She has been evaluated and treated at the [facility] in the past (~10/2018) by Dr. Gonzalez for managment of a non- healing LLE traumatic wound. The patient presents today with her . The patient reports that in June 2019 she developed redness and swelling of her BLE, resulting in blister-like lesions that turned into non-healing ulcers. This was initially managed by her PCP, Dr. Stewart. She was prescribed a course of Augmentin, which she completed approximately 2 months ago. She recalls improvement in erythema and swelling of bilateral lower extremities after completing the antibiotic, but denies complete resolution. Her PCP has also prescribed hydrocortisone lotion, which patient was using for several weeks on her bilateral lower extremities, with minimal improvement. Patient is also on diuretic therapy, managed by her PCP. Patient had left over Fibracol dressing from her previous wound healing center visits, which she has been applying to the ulcers of her right lower extremity. Despite these numerous treatment attempts, the erythema and swelling of patient's bilateral lower extremities, and ulcers of right lower extremity, persist. She notes itching and pain of bilateral lower extremities. She reports a temperature of ~100.0 ?F a few weeks ago, but this resolved spontaneously. She denies any increasing pain, erythema, or swelling from bilateral lower extremities. She reports a small, stable amount of thin, clear to yellow drainage from RLE ulcers. She denies any foul- smelling/purulent drainage. She denies any nausea, vomiting, persistent diarrhea. Patient has a PMH significant for T2 DM, RA, CKD stage III. Her lab work from Dr. Stewart's office was reviewed and was significant for the following: A1c 8.6% (07/29/2019), creatinine 1.41, BUN 26, estimated GFR 39, WBC 5.6, hemoglobin 10.8, albumin 3.3, glucose 412, (08/13/2019). See patient's chart for full details. Past Medical History Past Medical History: Chronic Problems Venous stasis dermatitis of both lower extremities (Chronic) Ulcer of right lower extremity with fat layer exposed (Chronic) Venous stasis ulcer of right lower leg with edema of right lower leg (Chronic) T2DM (type 2 diabetes mellitus) (Chronic) Rheumatoid arthritis (Chronic) CKD (chronic kidney disease), stage III (Chronic) Allergies/Adverse Reactions: Allergies No Known Allergies Allergy (Verified 09/07/19 14:49) Home Medications: Ambulatory Orders Medication Instructions Recorded Ferrous Sulfate [Iron] 325 mg PO DAILY 08/14/17 Pramipexole Di-HCl [Mirapex] 2 mg PO QHS 08/14/17 Propranolol HCl 20 mg PO BID 10/28/18 Hydroxychloroquine Sulfate 200 mg PO DAILY 09/07/19 [Plaquenil] Insulin Detemir [Levemir (BKC)] 29 units SUBCUT DAILY 09/07/19 Smoking Status: Never smoker Review of Systems Constitutional: Denies: Anorexia, Chills, Fever, Fatigue Eyes: Denies: Eyelid Inflammation, Pain, Vision Change HEENT: Denies: Difficulty Swallowing, Post Nasal Drip, Sinus Congestion Cardiovascular: Denies: Chest Pain, Palpitations Respiratory: Denies: Cough, Shortness of Breath, Wheezing Gastrointestinal: Denies: Abdominal Pain, Diarrhea, Nausea, Vomiting Genitourinary: Denies: Dysuria, Hematuria Musculoskeletal: Reports: Leg Pain - BLE tenderness Skin: Reports: Pruritis - Of BLE, Rash - Erythema and swelling of bilateral lower extremities, Wounds - Nonhealing ulcers of RLE Neurological: Denies: Double vision, Change in Speech, Focal weakness Endocrine: Denies: Heat/ Cold Intolerance, Polydipsia, Polyuria Hematologic/ Lymphatic: Reports: Anemia. Denies: Easy Bruising, Easy Bleeding - Physical Exam Vital Signs Temp Pulse Resp BP 97.9 F 54 L 16 97/49 L 09/07/19 14:27 09/07/19 14:27 09/07/19 14:27 09/07/19 14:27 General: Alert, Oriented x3, Cooperative, No apparent distress HEENT: Atraumatic, EOMI, Normocephalic Oral: Moist Mucosa Neck: Supple, No JVD, Trachea Midline Lungs: Clear to auscultation, Normal air movement, No rhonchi, No wheeze, No rales Cardiovascular: Regular rate, Regular Rhythm Abdomen: Bowel Sounds Present, Soft, Non Tender Extremities: No clubbing, No cyanosis, Capillary Refill Less than 3 Seconds, Diminished Peripheral Pulses, Edema - 3+ pitting edema of bilateral lower extremities, Tenderness - to palpation/manipulation of BLE Skin: Ulcer/ Wound - Venous stasis ulcers of right lower extremity, with subcutaneous layer exposed. No tunneling or undermining, no probing to bone. Moderate amount of slough present in wound beds. Generalized erythema, edema, and venous stasis dermatitis of bilateral lower extremities. RLE slightly warmer to touch than LLE. Tenderness of bilateral lower extremities to palpation/manipulation of ulcers, as well as generalized tenderness of BLE., Rash Present - Venous stasis dermatitis of bilateral lower extremities. Erythema and swelling of bilateral lower extremities. Wound Measurements and Assessment WC - Nurse 1 - General Ulcer Measurement Start: 09/07/19 14:27 Freq: Status: Active Protocol: Activity Type Activity Date Activity User E-Sign Co-Sign Detail Recorded Client Recorded Date Recorded By Document 09/07/19 14:27 [facility] [id number] 09/07/19 14:47 [facility] 09/07/19 14:27 Wound Center Nurse 1 [Ulcer Assessment] # 3- Lateral RLE -Combined with other wound No -Current Size (cm) - Length 1 -Current Size (cm) - Width 1 -Current Size (cm) - Depth 0.2 -Total Square Cm 1 -Date of Last Picture (Recall this 09/07/19 field) -Photo Taken Yes -Epithelialization None Present -Tunneling No -Undermining/Tunneling No -Circular Undermining No -Exudate Amt Small -Exudate Type Serous -Wound Margin Distinct, Outline Attached -Granulation Amt None Present (0 %) -Slough/Fibrin Yes -Necrosis Amt Large (67-100%) -Necrotic Tissue Type Adherent Slough -Texture (Stefany-wound Skin Appearance) Assessed, Scarring -Moisture (Stefany-wound Skin Appearance Assessed ) -Color (Stefany-wound Skin Appearance) Assessed, Erythema -Temperature (Stefany-wound Skin No Abnormality Appearance) (Pt Warm) -Tenderness on Palpation (Stefany-wound No Skin Appearance) -Ulcer Cleansing Rinsed/ Irrigated with Saline -Foul Odor after Cleansing No -Anesthetic Used 5% Lidocaine Gel #2- Medial RLE Cluster -Combined with other wound No -Current Size (cm) - Length 1 -Current Size (cm) - Width 4 -Current Size (cm) - Depth 0.2 -Total Square Cm 4 -Date of Last Picture (Recall this 09/07/19 field) -Photo Taken Yes -Epithelialization None Present -Tunneling No -Undermining/Tunneling No -Circular Undermining No -Exudate Amt Small -Exudate Type Serous -Wound Margin Distinct, Outline Attached -Granulation Amt None Present (0 %) -Slough/Fibrin Yes -Necrosis Amt Large (67-100%) -Necrotic Tissue Type Adherent Slough -Texture (Stefany-wound Skin Appearance) Assessed, Scarring -Moisture (Stefany-wound Skin Appearance Assessed ) -Color (Stefany-wound Skin Appearance) Assessed, Erythema -Temperature (Stefany-wound Skin No Abnormality Appearance) (Pt Warm) -Tenderness on Palpation (Stefany-wound No Skin Appearance) -Ulcer Cleansing Rinsed/ Irrigated with Saline -Foul Odor after Cleansing No -Anesthetic Used 5% Lidocaine Gel [Edema Assessment] -Lower Limb Edema Present Yes -Right Calf (cm) 38.1 -Right Ankle (cm) 22.5 -Left Calf (cm) 37 -Left Ankle (cm) 22.6 WC - Nurse 2 - General Ulcer CM Notes Start: 09/07/19 14:27 Freq: Status: Active Protocol: Activity Type Activity Date Activity User E-Sign Co-Sign Detail Recorded Client Recorded Date Recorded By Document 09/07/19 15:12 DV [id number] 09/07/19 15:28 DV 09/07/19 15:12 Wound Center Nurse 2 [Procedure/Treatment] # 3- Lateral RLE -Time 15:13 -Correct Patient Yes -Correct Side, Site, Position Yes -Correct Procedure Yes -Procedure Performed Yes -Type of Procedure Debridement -Clinical Debridement Subcutaneous -Post Debridement Size (cm) - Length 1.1 -Post Debridement Size (cm) - Width 1.4 -Post Debridement Size (cm) - Depth 0.2 -Total Square Cm 1.54 -Wound/Ulcer Outcome Not Healed #2- Medial RLE Cluster -Time 15:24 -Correct Patient Yes -Correct Side, Site, Position Yes -Correct Procedure Yes -Procedure Performed Yes -Type of Procedure Debridement -Clinical Debridement Subcutaneous -Post Debridement Size (cm) - Length 2.0 -Post Debridement Size (cm) - Width 4.6 -Post Debridement Size (cm) - Depth 0.1 -Total Square Cm 9.20 -Wound/Ulcer Outcome Not Healed -Ulcer Cleansing Rinsed/ Irrigated with Saline -Foul Odor after Cleansing No -Bioengineered Tissue No -Bleeding Controlled with Pressure -Offloading No -Treatment Response Procedure Tolerated Well [See Physician Procedure note for Specifics] Pain Scale: 0-10 Numeric [Pain] -Is Patient Pain Free? Yes Musculoskeletal: Tenderness - To palpation of BLE Neurological: Neuro grossly intact Psych/Mental Status: Normal Affect, Appropriate Debridement Note Post-Debridement Measurements/Treatment WC - Nurse 2 - General Ulcer CM Notes Start: 09/07/19 14:27 Freq: Status: Active Protocol: Activity Type Activity Date Activity User E-Sign Co-Sign Detail Recorded Client Recorded Date Recorded By Document 09/07/19 15:12 DV [id number] 09/07/19 15:28 DV 09/07/19 15:12 Wound Center Nurse 2 # 3- Lateral RLE -Time 15:13 -Correct Patient Yes -Correct Side, Site, Position Yes -Correct Procedure Yes -Procedure Performed Yes -Type of Procedure Debridement -Clinical Debridement Subcutaneous -Post Debridement Size (cm) - Length 1.1 -Post Debridement Size (cm) - Width 1.4 -Post Debridement Size (cm) - Depth 0.2 -Total Square Cm 1.54 -Wound/Ulcer Outcome Not Healed #2- Medial RLE Cluster -Time 15:24 -Correct Patient Yes -Correct Side, Site, Position Yes -Correct Procedure Yes -Procedure Performed Yes -Type of Procedure Debridement -Clinical Debridement Subcutaneous -Post Debridement Size (cm) - Length 2.0 -Post Debridement Size (cm) - Width 4.6 -Post Debridement Size (cm) - Depth 0.1 -Total Square Cm 9.20 -Wound/Ulcer Outcome Not Healed -Ulcer Cleansing Rinsed/ Irrigated with Saline -Foul Odor after Cleansing No -Bioengineered Tissue No -Bleeding Controlled with Pressure -Offloading No -Treatment Response Procedure Tolerated Well Pain Scale: 0-10 Numeric Is Patient Pain Free? Yes Wound debrided: Lateral RLE Laterality: Right Type of Debridement: Excisional debridement Anesthesia Used: 5% Lidocaine Gel Depth: in the subcutaneous layer Percentage of wound debrided: 100 Instrument Used: 5mm curette Tissue Removed: Slough and devitalized tissue Severity: Fat Layer Exposed Amount of bleeding with debridement: Mild Bleeding Controlled with: Pressure Patient tolerated procedure well - Additional Wound Wound debrided: Medial RLE cluster Laterality: Right Type of Debridement: Excisional debridement Anesthesia Used: 5% Lidocaine Gel Depth: in the subcutaneous layer Percentage of wound debrided: 100 Instrument Used: 3mm curette Tissue Removed: Slough and vitalized tissue Severity: Fat Layer Exposed Amount of bleeding with debridement: Mild Bleeding Controlled with: Pressure Patient tolerated procedure: Patient tolerated procedure well Assessment/Plan Active Problems Venous stasis dermatitis of both lower extremities (Chronic) Ulcer of right lower extremity with fat layer exposed (Chronic) Venous stasis ulcer of right lower leg with edema of right lower leg (Chronic) T2DM (type 2 diabetes mellitus) (Chronic) Rheumatoid arthritis (Chronic) CKD (chronic kidney disease), stage III (Chronic) Assessment: 1. Venous stasis dermatitis of BLE, chronic. 2. Ulcers of RLE with fat layer exposed, chronic. 3. Venous stasis ulcer of RLE with edema of RLE, chronic. 4. T2DM, insulin-dependent, chronic. 5. Rheumatoid arthritis, chronic. 6. CKD, stage III, chronic Plan: Debridement performed today in clinic. Aquacel Ag + Adaptic applied to RLE ulcers. Unna boots applied bilaterally. Given the duration of the wounds and failure of the wounds to respond to standard wound care, we will apply for advanced skin substitutes. At home wound-care instructions: Keep Unna boots clean and dry. Return in 72 hours to have Unna boots removed. If at any point you are unable to tolerate Unna boots, or experience discoloration or pain in lower extremities, contact the [facility] immediately or report to the emergency room. Compression: Bilateral Unna boots applied today in clinic. Off-loading: Keep feet elevated as much as possible, at or above waist level. Attempt to recline and avoid hinging at hips as much as possible when feet are elevated, to avoid fluid accumulation in thighs/upper legs. Diet: Patient encouraged to increase protein and vitamin C intake while taking caution to avoid high carbohydrate and/or sugar intake. Discussed the importance of tight glycemic control. Labs/cultures/imaging: Wound cultures ordered and collected today from RLE. Lab work from Dr. Stewart's office was reviewed and was significant for the following: A1c 8.6% (07/29/2019), creatinine 1.41, BUN 26, estimated GFR 39, WBC 5.6, hemoglobin 10.8, albumin 3.3, glucose 412, (08/13/2019). See patient's chart for full details. No further labs ordered at this time. We will defer vascular testing at this time due to necessity of application of Unna boots. Follow-up: Return to clinic on 09/10/2019 for removal of Unna boots. Return to clinic in 1 week for re-evaluation by provider. Return sooner or report to the emergency room should symptoms worsen, or new symptoms arise. Note: [employer] speech recognition rim turning finisher software was used to create portions of this document. Sound-alike and misspelled words, as well as other rim turning finisher errors may be contained in the documentation. Code Visit Office Visits / Consults: [id number] OV L4 Est 111xxx-113xx: [id number] Nery subq tissue 20 sq cm/<
[2019-09-08 16:26] LABS: M R Staph aureus DNA By PCR Negative (Negative); Probe Check PASS; Staph aureus DNA By PCR POSITIVE (Negative)
[2019-09-10 12:21] VITALS: BMI 30.2
[2019-09-17 12:05] VITALS: BP 136/71; PULSE 65; RESP 16; TEMP 34.7; BMI 30.2
--- NOTE | 2019-09-17 14:27 | PN.PCM_ITS ---
(1) Venous stasis ulcer of right lower leg with edema of right lower leg Status: Chronic Current Visit: Yes Code(s): I83.019 - Varicose veins of right lower extremity with ulcer of unspecified site; I83.891 - Varicose veins of right lower extremity with other complications; L97.919 - Non-pressure chronic ulcer of unspecified part of right lower leg with unspecified severity; R60.9 - Edema, unspecified (2) Venous stasis dermatitis of both lower extremities Status: Chronic Current Visit: Yes Code(s): I87.2 - Venous insufficiency (chronic) (peripheral) (3) Ulcer of right lower extremity with fat layer exposed Status: Chronic Current Visit: Yes Code(s): L97.912 - Non-pressure chronic ulcer of unspecified part of right lower leg with fat layer exposed (4) T2DM (type 2 diabetes mellitus) Status: Chronic Current Visit: No Qualifiers: Diabetes mellitus care home insulin use: with manager long term care use Diabetes mellitus complication status: with skin complications Diabetes mellitus complication detail: with other skin ulcer Qualified Code(s): E11.622 - Type 2 diabetes mellitus with other skin ulcer; Z79.4 - [facility] (current) use of insulin Code(s): E11.9 - Type 2 diabetes mellitus without complications (5) Rheumatoid arthritis Status: Chronic Current Visit: No Code(s): M06.9 - Rheumatoid arthritis, unspecified (6) CKD (chronic kidney disease), stage III Status: Chronic Current Visit: No Code(s): N18.3 - Chronic kidney disease, stage 3 (moderate) (7) Dermatitis Status: Acute Current Visit: Yes Code(s): L30.9 - Dermatitis, unspecified Type of Wound Date of Service: 09/17/19 Chief Complaint: swelling and non-healing wounds of right lower extremity History of Wound: Ms. Garcia is a pleasant 74-year-old female who [facility] for evaluation and treatment of swelling and non-healing wounds of RLE. She has been evaluated and treated [facility] in the past (~10/2018) by Dr. Gonzalez for managment of a non- healing LLE traumatic wound. The patient presents today with her . The patient reports that in June 2019 she developed redness and swelling of her BLE, resulting in blister-like lesions that turned into non-healing ulcers. This was initially managed by her PCP, Dr. Stewart. She was prescribed a course of Augmentin, which she completed approximately 2 months ago. She recalls improvement in erythema and swelling of bilateral lower extremities after completing the antibiotic, but denies complete resolution. Her PCP has also pre scribed hydrocortisone lotion, which patient was using for several weeks on her bilateral lower extremities, with minimal improvement. Patient is also on diuretic therapy, managed by her PCP. Patient had left over Fibracol dressing from her previous wound healing center visits, which she has been applying to the ulcers of her right lower extremity. Despite these numerous treatment attempts, the erythema and swelling of patient's bilateral lower extremities, and ulcers of right lower extremity, persist. She notes itching and pain of bilateral lower extremities. She reports a temperature of ~100.0 ?F a few weeks ago, but this resolved spontaneously. She denies any increasing pain, erythema, or swelling from bilateral lower extremities. She reports a small, stable amount of thin, clear to yellow drainage from RLE ulcers. She denies any foul- smelling/purulent drainage. She denies any nausea, vomiting, persistent diarrhea. Patient has a PMH significant for T2 DM, RA, CKD stage III. Her lab work from Dr. Stewrat's office was reviewed and was significant for the following: A1c 8.6% (07/29/2019), creatinine 1.41, BUN 26, estimated GFR 39, WBC 5.6, hemoglobin 10.8, albumin 3.3, glucose 412, (08/13/2019). See patient's chart for full details. Progress of Wound: Patient presents today with her son and daughter. She was recently hospitalized for a hip fracture, and is now residing in a nursing care facility. The [facility] has been applying Unna boots daily to her right lower extremity, however there is concerned that they have been wrapping RLE too tightly. Patient is having increasing pain in right lower extremity, but denies any increased swelling, purulent or foul-smelling drainage, or nausea/vomiting. She does report a fever the day after her hip surgery, but none subsequently. Her labs done while at the hospital reveal the following: WBC 10.3, hemoglobin 9.3, neutrophils 83.1%, absolute neutrophils 8.6, creatinine 1.09, estimated GFR 52, glucose 163, A1c 9.1%. Patient's wound cultures were positive for the followin+ Staphylococcus aureus, rare Streptococcus agalactiae. Antibiotics were initially deferred due to no concerning signs of infection at appointment on 09/10/2019 when Unna boots were changed. Patient also has dermatitis of right lower extremity, bilateral arms, bilateral shoulders, and back. This has been ongoing for a few weeks now. She reports it is very itchy. She denies any new products or medications. She has been taking Benadryl to manage this rash, without much improvement. - Physical Exam Vital Signs Temp Pulse Resp BP 94.4 F L 65 16 136/71 H 09/17/19 12:05 09/17/19 12:05 09/17/19 12:05 09/17/19 12:05 General: Alert, Cooperative, No apparent distress HEENT: Atraumatic, EOMI, Normocephalic Oral: Moist Mucosa Neck: Supple, No JVD, Trachea Midline Lungs: Normal air movement Cardiovascular: Regular Rhythm Extremities: No clubbing, No cyanosis, Capillary Refill Less than 3 Seconds, Cool - Bilateral feet and toes cool to touch, Diminished Peripheral Pulses, Edema - 1+ pitting edema of bilateral lower extremities., Tenderness - Tenderness to palpation/manipulation of bilateral lower extremities Skin: Ulcer/ Wound - Venous stasis ulcers of right lower extremity, with subcutaneous layer exposed. No tunneling or undermining, no probing to bone. Moderate amount of slough present in wound beds. Generalized erythema and edema, as well as venous stasis dermatitis of right lower extremity has improved. Right lower extremity rash present as noted. Small amount of purulent drainage noted from lateral RLE ulcer, nonodorous., Rash Present - Vesiculopapular rash and excoriation of bilateral arms, shoulders, and back, and papular rash and excoriation of right lower extremity. Wound Measurements and Assessment WC - Nurse 1 - General Ulcer Measurement Start: 09/07/19 14:27 Freq: Status: Active Protocol: Activity Type Activity Date Activity User E-Sign Co-Sign Detail Recorded Client Recorded Date Recorded By Document 09/17/19 12:05 DV [id number] 09/17/19 12:22 DV 09/17/19 12:05 Wound Center Nurse 1 [Ulcer Assessment] # 3- Lateral RLE -Combined with other wound No -Photo Taken No -Tunneling No -Undermining/Tunneling No -Circular Undermining No -Classification - Pressure Ulcer Stage 4 -Change in Wound Grade/Stage No Query Text:If change please identify the Stage/Grade in the comment (ie. S2 G3) [Edema Assessment] -Lower Limb Edema Present No WC - Nurse 2 - General Ulcer CM Notes Start: 09/07/19 14:27 Freq: Status: Active Protocol: Activity Type Activity Date Activity User E-Sign Co-Sign Detail Recorded Client Recorded Date Recorded By Document 09/17/19 12:27 DV [id number] 09/17/19 12:35 DV 09/17/19 12:27 Wound Center Nurse 2 [Procedure/Treatment] # 3- Lateral RLE -Time 12:29 -Correct Patient Yes -Correct Side, Site, Position Yes -Correct Procedure Yes -Procedure Performed Yes -Type of Procedure Debridement -Clinical Debridement Subcutaneous -Post Debridement Size (cm) - Length 1.1 -Post Debridement Size (cm) - Width 1.7 -Post Debridement Size (cm) - Depth 0.2 -Total Square Cm 1.87 -Wound/Ulcer Outcome Not Healed -Ulcer Cleansing Rinsed/ Irrigated with Saline -Foul Odor after Cleansing No -Bioengineered Tissue No -Bleeding Controlled with Pressure -Offloading No -Treatment Response Procedure Tolerated Well #2- Medial RLE Cluster -Time 12:31 -Correct Patient Yes -Correct Side, Site, Position Yes -Correct Procedure Yes -Procedure Performed Yes -Type of Procedure Debridement -Clinical Debridement Subcutaneous -Post Debridement Size (cm) - Length 0.5 -Post Debridement Size (cm) - Width 0.4 -Post Debridement Size (cm) - Depth 0.2 -Total Square Cm 0.20 -Wound/Ulcer Outcome Not Healed -Ulcer Cleansing Rinsed/ Irrigated with Saline -Foul Odor after Cleansing No -Bioengineered Tissue No -Bleeding Controlled with NA -Offloading No -Treatment Response Procedure Tolerated Well [See Physician Procedure note for Specifics] Pain Scale: 0-10 Numeric [Pain] -Is Patient Pain Free? Yes Musculoskeletal: Tenderness - Patient/manipulation of BLE Neurological: - - Restlessness and tremors of bilateral lower extremities Psych/Mental Status: Normal Affect, Appropriate Debridement Note Post-Debridement Measurements/Treatment WC - Nurse 2 - General Ulcer CM Notes Start: 09/07/19 14:27 Freq: Status: Active Protocol: Activity Type Activity Date Activity User E-Sign Co-Sign Detail Recorded Client Recorded Date Recorded By Document 09/07/19 15:12 DV [id number] 09/07/19 15:28 DV Document 09/17/19 12:27 DV [id number] 09/17/19 12:35 DV 09/07/19 09/17/19 15:12 12:27 Wound Center Nurse 2 # 3- Lateral RLE -Time 15:13 12:29 -Correct Patient Yes Yes -Correct Side, Site, Position Yes Yes -Correct Procedure Yes Yes -Procedure Performed Yes Yes -Type of Procedure Debridement Debridement -Clinical Debridement Subcutaneous Subcutaneous -Post Debridement Size (cm) - Length 1.1 1.1 -Post Debridement Size (cm) - Width 1.4 1.7 -Post Debridement Size (cm) - Depth 0.2 0.2 -Total Square Cm 1.54 1.87 -Wound/Ulcer Outcome Not Healed Not Healed -Ulcer Cleansing Rinsed/ Irrigated with Saline -Foul Odor after Cleansing No -Bioengineered Tissue No -Bleeding Controlled with Pressure -Offloading No -Treatment Response Procedure Tolerated Well #2- Medial RLE Cluster -Time 15:24 12:31 -Correct Patient Yes Yes -Correct Side, Site, Position Yes Yes -Correct Procedure Yes Yes -Procedure Performed Yes Yes -Type of Procedure Debridement Debridement -Clinical Debridement Subcutaneous Subcutaneous -Post Debridement Size (cm) - Length 2.0 0.5 -Post Debridement Size (cm) - Width 4.6 0.4 -Post Debridement Size (cm) - Depth 0.1 0.2 -Total Square Cm 9.20 0.20 -Wound/Ulcer Outcome Not Healed Not Healed -Ulcer Cleansing Rinsed/ Rinsed/ Irrigated with Irrigated with Saline Saline -Foul Odor after Cleansing No No -Bioengineered Tissue No No -Bleeding Controlled with Pressure NA -Offloading No No -Treatment Response Procedure Procedure Tolerated Well Tolerated Well Pain Scale: 0-10 Numeric Is Patient Pain Free? Yes Yes Wound debrided: Lateral RLE Laterality: Right Type of Debridement: Excisional debridement Anesthesia Used: 5% Lidocaine Gel Depth: in the subcutaneous layer Percentage of wound debrided: 100 Instrument Used: 5mm curette Tissue Removed: Slough and devitalized tissue Severity: Fat Layer Exposed Amount of bleeding with debridement: Mild Bleeding Controlled with: Pressure Patient tolerated procedure well - Additional Wound Wound debrided: Medial RLE Laterality: Right Type of Debridement: Excisional debridement Anesthesia Used: 5% Lidocaine Gel Depth: in the subcutaneous layer Percentage of wound debrided: 100 Instrument Used: 3mm curette Tissue Removed: Slough and devitalized tissue Severity: Fat Layer Exposed Amount of bleeding with debridement: Mild Bleeding Controlled with: Pressure Patient tolerated procedure: Patient tolerated procedure well Assessment/Plan Active Problems Venous stasis dermatitis of both lower extremities (Chronic) Ulcer of right lower extremity with fat layer exposed (Chronic) Venous stasis ulcer of right lower leg with edema of right lower leg (Chronic) Dermatitis (Acute) Assessment: 1. Venous stasis dermatitis of BLE, chronic. 2. Ulcers of RLE with fat layer exposed, chronic. 3. Venous stasis ulcer of RLE with edema of RLE, chronic. 4. T2DM, insulin-dependent, chronic. 5. Rheumatoid arthritis, chronic. 6. CKD, stage III, chronic. 7. Dermatitis Plan: Debridement performed today in clinic as annotated above. Aquacel Ag applied to RLE ulcers. Triamcinolone 0.5% cream ordered. Patient instructed to apply triamcinolone cream twice daily to bilateral arms, back, and right lower extremity, avoiding her RLE ulcers, as well as avoiding axilla, groin, face, or breasts. Given the duration of the wounds and failure of the wounds to respond to standard wound care, we have applied for advanced skin substitutes--status pending. At home wound-care instructions: Change Aquacel Ag dressings daily as ordered, and apply double Tubigrip's to bilateral lower extremities. Keep dressings clean and dry. May remove dressings to shower. Clean sandy-ulcer areas with mild antibacterial soap and water, rinsing well and patting dry. Apply clean dressing following shower. Do not soak or submerge ulcers. Regards to rash, keep affected areas of skin clean and dry as well, apply triamcinolone cream twice daily to affected areas. Do not use any scented or dyed products on skin. Compression: Double Tubigrip applied to bilateral lower extremities. Off-loading: Keep feet elevated as much as possible, at or above waist level. Attempt to recline and avoid hinging at hips as much as possible when feet are elevated, to avoid fluid accumulation in thighs/upper legs. Diet: Patient encouraged to increase protein and vitamin C intake while taking caution to avoid high carbohydrate and/or sugar intake. Discussed the importance of tight glycemic control. Labs/cultures/imaging: Labs done while at [facility] reveal the following: WBC 10.3, hemoglobin 9.3, neutrophils 83.1%, absolute neutrophils 8.6, creatinine 1.09, estimated GFR 52, glucose 163, A1c 9.1%. Patient's wound cultures were positive for the followin+ Staphyl ococcus aureus, rare Streptococcus agalactiae. Given small amount of purulent drainage, and increase in ulcer/sandy-ulcer pain, we will start doxycycline 100 mg p.o. twice daily x10 days. Follow-up: Return to clinic in 1 week for re- evaluation by provider. Return sooner or report to the emergency room should symptoms worsen, or new symptoms arise. Note: [employer] speech recognition procurement services manager software was used to create portions of this document. Sound-alike and misspelled words, as well as other procurement services manager errors may be contained in the documentation. Code Visit 111xxx-[id number]: 48934 Nery subq tissue 20 sq cm/<
[2019-09-24 10:50] VITALS: BP 121/46; PULSE 64; RESP 18; BMI 30.2
--- NOTE | 2019-09-24 12:36 | PN.PCM_ITS ---
(1) Venous stasis ulcer of right lower leg with edema of right lower leg Status: Chronic Current Visit: Yes Code(s): I83.019 - Varicose veins of right lower extremity with ulcer of unspecified site; I83.891 - Varicose veins of right lower extremity with other complications; L97.919 - Non-pressure chronic ulcer of unspecified part of right lower leg with unspecified severity; R60.9 - Edema, unspecified (2) Venous stasis dermatitis of both lower extremities Status: Chronic Current Visit: Yes Code(s): I87.2 - Venous insufficiency (chronic) (peripheral) (3) Ulcer of right lower extremity with fat layer exposed Status: Chronic Current Visit: Yes Code(s): L97.912 - Non-pressure chronic ulcer of unspecified part of right lower leg with fat layer exposed (4) Dermatitis Status: Acute Current Visit: Yes Code(s): L30.9 - Dermatitis, unspecified (5) T2DM (type 2 diabetes mellitus) Status: Chronic Current Visit: No Qualifiers: Diabetes mellitus nursing home insulin use: with nursing home use Diabetes mellitus complication status: with skin complications Diabetes mellitus complication detail: with other skin ulcer Qualified Code(s): E11.622 - Type 2 diabetes mellitus with other skin ulcer; Z79.4 - long term care administrator (current) use of i nsulin Code(s): E11.9 - Type 2 diabetes mellitus without complications (6) Rheumatoid arthritis Status: Chronic Current Visit: No Code(s): M06.9 - Rheumatoid arthritis, unspecified (7) CKD (chronic kidney disease), stage III Status: Chronic Current Visit: No Code(s): N18.3 - Chronic kidney disease, stage 3 (moderate) Type of Wound Date of Service: 09/24/19 Chief Complaint: swelling and non-healing wounds of right lower extremity History of Wound: Ms. Garcia is a pleasant 74-year-old female who [facility] for evaluation and treatment of swelling and non-healing wounds of RLE. She has been evaluated and treated [facility] in the past (~10/2018) by Dr. Gonzalez for managment of a non- healing LLE traumatic wound. The patient presents today with her . The patient reports that in June 2019 she developed redness and swelling of her BLE, resulting in blister-like lesions that turned into non-healing ulcers. This was initially managed by her PCP, Dr. Stewart. She was prescribed a course of Augmentin, which she completed approximately 2 months ago. She recalls improvement in erythema and swelling of bilateral lower extremities after completing the antibiotic, but denies complete resolution. Her PCP has also pre scribed hydrocortisone lotion, which patient was using for several weeks on her bilateral lower extremities, with minimal improvement. Patient is also on diuretic therapy, managed by her PCP. Patient had left over Fibracol dressing from her previous wound healing center visits, which she has been applying to the ulcers of her right lower extremity. Despite these numerous treatment attempts, the erythema and swelling of patient's bilateral lower extremities, and ulcers of right lower extremity, persist. She notes itching and pain of bilateral lower extremities. She reports a temperature of ~100.0 ?F a few weeks ago, but this resolved spontaneously. She denies any increasing pain, erythema, or swelling from bilateral lower extremities. She reports a small, stable amount of thin, clear to yellow drainage from RLE ulcers. She denies any foul- smelling/purulent drainage. She denies any nausea, vomiting, persistent diarrhea. Patient has a PMH significant for T2 DM, RA, CKD stage III. Her lab work from Dr. Stewart's office was reviewed and was significant for the following: A1c 8.6% (07/29/2019), creatinine 1.41, BUN 26, estimated GFR 39, WBC 5.6, hemoglobin 10.8, albumin 3.3, glucose 412, (08/13/2019). See patient's chart for full details. Progress of Wound: Patient presents today with her son and daughter. She was recently hospitalized for a hip fracture, and is now residing in a nursing care facility. Improvement in size and appearance of her right lower extremity ulcers today. The patient denies any fever, chills, nausea, vomiting, or omar rrhea. Denies any signs of infection, including increasing pain, redness, swelling, or drainage from affected area. Patient also has dermatitis of right lower extremity, bilateral arms, bilateral shoulders, and back. This has been ongoing for a few weeks now. She reports it is very itchy. She denies any new products or medications. Last week, we started triamcinolone 0.5% cream, which has worked well at improving the itchiness and redness of her rash. She is almost out of triamcinolone cream, and was instructed by her PCP today (Dr. Stewart) to continue using this. - Physical Exam Vital Signs Temp Pulse Resp BP 94.4 F L 64 18 121/46 H 09/17/19 12:05 09/24/19 10:50 09/24/19 10:50 09/24/19 10:50 General: Alert, Cooperative, No apparent distress HEENT: Atraumatic, EOMI, Normocephalic Oral: Moist Mucosa Neck: Supple, No JVD, Trachea Midline Lungs: Normal air movement Extremities: No clubbing, No cyanosis, Capillary Refill Less than 3 Seconds, Diminished Peripheral Pulses, Edema - Trace edema bilateral lower extremities., Tenderness - Tenderness to palpation/manipulation of bilateral lower extremities. Skin: Ulcer/ Wound - Venous stasis ulcers of right lower extremity, with subcutaneous layer exposed. No tunneling, undermining, or probing to bone. Small amount of slough present in wound beds. Ulcers of right lower extremity tender to palpation/manipulation. No increased warmth in RLE versus LLE. Generalized erythema and edema, as well as venous stasis dermatitis of right lower extremity has continued to improve, and is nearly resolved. Right lower extremity rash is also greatly improved and nearly resolved., Rash Present - Vesiculopapular rash and excoriation of bilateral arms, shoulders, back with significant improvement. Papular rash and excoriation of right lower extremity also greatly improved. Wound Measurements and Assessment WC - Nurse 1 - General Ulcer Measurement Start: 09/07/19 14:27 Freq: Status: Active Protocol: Activity Type Activity Date Activity User E-Sign Co-Sign Detail Recorded Client Recorded Date Recorded By Document 09/24/19 10:50 [facility] [id number] 09/24/19 10:54 [facility] 09/24/19 10:50 Wound Center Nurse 1 [Ulcer Assessment] # 3- Lateral RLE -Combined with other wound No -Current Size (cm) - Length 1.1 -Current Size (cm) - Width 1.2 -Current Size (cm) - Depth 0.2 -Total Square Cm 1.32 #2- Medial RLE Cluster -Combined with other wound No -Current Size (cm) - Length 0.1 -Current Size (cm) - Width 0.1 -Current Size (cm) - Depth 0.1 -Total Square Cm 0.01 -Tunneling No -Undermining/Tunneling No -Circular Undermining No -Exudate Amt Small -Exudate Type Serosanguineous -Wound Margin Flat & Intact -Granulation Amt Medium (34-66%) -Granulation Quality [place] -Slough/Fibrin Yes -Necrosis Amt Small (1-33%) -Necrotic Tissue Type Adherent Slough -Structure Exposed N/A -Texture (Sandy-wound Skin Appearance) Assessed, Localized Edema -Moisture (Sandy-wound Skin Appearance Assessed ) -Color (Sandy-wound Skin Appearance) Assessed -Temperature (Sandy-wound Skin No Abnormality Appearance) (Pt Warm) -Tenderness on Palpation (Sandy-wound No Skin Appearance) -Ulcer Cleansing Wound Cleanser -Foul Odor after Cleansing No -Anesthetic Used 4% Lidocaine Solution [Edema Assessment] -Lower Limb Edema Present Yes -Right Calf (cm) 35.8 -Right Ankle (cm) 21.7 WC - Nurse 2 - General Ulcer CM Notes Start: 09/07/19 14:27 Freq: Status: Active Protocol: Activity Type Activity Date Activity User E-Sign Co-Sign Detail Recorded Client Recorded Date Recorded By Document 09/24/19 11:02 DV [id number] 09/24/19 11:09 DV 09/24/19 11:02 Wound Center Nurse 2 [Procedure/Treatment] # 3- Lateral RLE -Time 11:07 -Correct Patient Yes -Correct Side, Site, Position Yes -Correct Procedure Yes -Procedure Performed Yes -Type of Procedure Debridement -Clinical Debridement Subcutaneous -Post Debridement Size (cm) - Length 1.0 -Post Debridement Size (cm) - Width 1.4 -Post Debridement Size (cm) - Depth 0.1 -Total Square Cm 1.40 -Wound/Ulcer Outcome Not Healed -Ulcer Cleansing Rinsed/ Irrigated with Saline -Foul Odor after Cleansing No -Bleeding Controlled with Pressure -Offloading No -Treatment Response Procedure Tolerated Well #2- Medial RLE Cluster -Time 11:04 -Correct Patient Yes -Correct Side, Site, Position Yes -Correct Procedure Yes -Procedure Performed Yes -Type of Procedure Debridement -Clinical Debridement Subcutaneous -Post Debridement Size (cm) - Length 0.3 -Post Debridement Size (cm) - Width 0.3 -Post Debridement Size (cm) - Depth 0.1 -Total Square Cm 0.09 -Wound/Ulcer Outcome Not Healed -Ulcer Cleansing Rinsed/ Irrigated with Saline -Foul Odor after Cleansing No -Bioengineered Tissue No -Bleeding Controlled with Pressure -Offloading No -Treatment Response Procedure Tolerated Well [See Physician Procedure note for Specifics] Pain Scale: 0-10 Numeric [Pain] -Is Patient Pain Free? Yes Musculoskeletal: Tenderness - Palpation/manipulation of BLE Neurological: - - Restlessness and tremors of bilateral lower extremities greatly improved today. Psych/Mental Status: Normal Affect, Appropriate Debridement Note Post-Debridement Measurements/Treatment WC - Nurse 2 - General Ulcer CM Notes Start: 09/07/19 14:27 Freq: Status: Active Protocol: Activity Type Activity Date Activity User E-Sign Co-Sign Detail Recorded Client Recorded Date Recorded By Document 09/07/19 15:12 DV [id number] 09/07/19 15:28 DV Document 09/17/19 12:27 DV [id number] 09/17/19 12:35 DV Document 09/24/19 11:02 DV [id number] 09/24/19 11:09 DV 09/07/19 09/17/19 09/24/19 15:12 12:27 11:02 Wound Center Nurse 2 # 3- Lateral RLE -Time 15:13 12:29 11:07 -Correct Patient Yes Yes Yes -Correct Side, Site, Position Yes Yes Yes -Correct Procedure Yes Yes Yes -Procedure Performed Yes Yes Yes -Type of Procedure Debridement Debridement Debridement -Clinical Debridement Subcutaneous Subcutaneous Subcutaneous -Post Debridement Size (cm) - Length 1.1 1.1 1.0 -Post Debridement Size (cm) - Width 1.4 1.7 1.4 -Post Debridement Size (cm) - Depth 0.2 0.2 0.1 -Total Square Cm 1.54 1.87 1.40 -Wound/Ulcer Outcome Not Healed Not Healed Not Healed -Ulcer Cleansing Rinsed/ Rinsed/ Irrigated with Irrigated with Saline Saline -Foul Odor after Cleansing No No -Bioengineered Tissue No -Bleeding Controlled with Pressure Pressure -Offloading No No -Treatment Response Procedure Procedure Tolerated Well Tolerated Well #2- Medial RLE Cluster -Time 15:24 12:31 11:04 -Correct Patient Yes Yes Yes -Correct Side, Site, Position Yes Yes Yes -Correct Procedure Yes Yes Yes -Procedure Performed Yes Yes Yes -Type of Procedure Debridement Debridement Debridement -Clinical Debridement Subcutaneous Subcutaneous Subcutaneous -Post Debridement Size (cm) - Length 2.0 0.5 0.3 -Post Debridement Size (cm) - Width 4.6 0.4 0.3 -Post Debridement Size (cm) - Depth 0.1 0.2 0.1 -Total Square Cm 9.20 0.20 0.09 -Wound/Ulcer Outcome Not Healed Not Healed Not Healed -Ulcer Cleansing Rinsed/ Rinsed/ Rinsed/ Irrigated with Irrigated with Irrigated with Saline Saline Saline -Foul Odor after Cleansing No No No -Bioengineered Tissue No No No -Bleeding Controlled with Pressure NA Pressure -Offloading No No No -Treatment Response Procedure Procedure Procedure Tolerated Well Tolerated Well Tolerated Well Pain Scale: 0-10 Numeric Is Patient Pain Free? Yes Yes Yes Wound debrided: Lateral RLE Type of Debridement: Excisional debridement Anesthesia Used: 4% Lidocaine Solution, 5% Lidocaine Gel Depth: in the subcutaneous layer Instrument Used: 5mm curette Tissue Removed: Slough and devitalized tissue Severity: Fat Layer Exposed Amount of bleeding with debridement: Mild Bleeding Controlled with: Pressure Patient tolerated procedure well - Additional Wound Wound debrided: Medial RLE Laterality: Right Type of Debridement: Excisional debridement Anesthesia Used: 5% Lidocaine Gel Depth: in the subcutaneous layer Instrument Used: 3mm curette Tissue Removed: Slough and devitalized tissue Severity: Fat Layer Exposed Amount of bleeding with debridement: Mild Bleeding Controlled with: Pressure Patient tolerated procedure: Patient tolerated procedure well Assessment/Plan Active Problems Venous stasis dermatitis of both lower extremities (Chronic) Ulcer of right lower extremity with fat layer exposed (Chronic) Venous stasis ulcer of right lower leg with edema of right lower leg (Chronic) Dermatitis (Acute) Assessment: 1. Venous stasis dermatitis of BLE, chronic. 2. Ulcers of RLE with fat layer exposed, chronic. 3. Venous stasis ulcer of RLE with edema of RLE, chronic. 4. T2DM, insulin-dependent, chronic. 5. Rheumatoid arthritis, chronic. 6. CKD, stage III, chronic. 7. Dermatitis Plan: Debridement performed today in clinic as annotated above. Aquacel Ag applied to RLE ulcers. Triamcinolone 0.5% ointment prescribed. We will continue this x1 more week, and reassess need for continued use. If rash is improved/resolved, we may decrease potency of topical steroid. Discussed risks/benefits of treatment with topical steroids with patient and family. Patient instructed to apply triamcinolone ointment 2-3 times daily to bilateral arms, back, and lower extremities, avoiding her RLE ulcers, as well as avoiding axilla, groin, face, or breasts. Given the duration of the wounds and failure of the wounds to respond to standard wound care, we have applied for advanced skin substitutes--status pending. At home wound-care instructions: Change Aquacel Ag dressings daily as ordered, and apply double Tubigrip's to bilateral lower extremities. Keep dressings clean and dry. May remove dressings to shower. Clean sandy-ulcer areas with mild antibacterial soap and water, rinsing well and patting dry. Apply clean dressing following shower. Do not soak or submerge ulcers. In regards to rash, keep affected areas of skin clean and dry as well, apply triamcinolone ointment 2-3 times daily to affected areas. Do not use any scented or dyed products on skin. Wash hands thoroughly after contact with triamcinolone ointment. Compression: Double Tubigrip applied to bilateral lower extremities. Off-loading: Keep feet elevated as much as possible, at or above waist level. Attempt to recline and avoid hinging at hips as much as possible when feet are elevated, to avoid fluid accumulation in thighs/upper legs. Diet: Patient encouraged to increase protein and vitamin C intake while taking caution to avoid high carbohydrate and/or sugar intake. Discussed the importance of tight glycemic control. Labs/cultures/imaging: Labs done while at [facility] reveal the following: WBC 10.3, hemoglobin 9.3, neutrophils 83.1%, absolute neutrophils 8.6, creatinine 1.09, estimated GFR 52, glucose 163, A1c 9.1%. Patient's wound cultures were positive for the followin+ Staphylococcus aureus, rare Streptococcus agalactiae. Given small amount of purulent drainage, and increase in ulcer/sandy-ulcer pain, we have started doxycycline 100 mg p.o. twice daily x10 days. Complete this antibiotic as prescribed. Follow-up: Return to clinic in 1 week for re-evaluation by provider. Return sooner or report to the emergency room should symptoms worsen, or new symptoms arise. Note: xPeerient speech recognition nozzle cement sprayer helper software was used to create portions of this document. Sound-alike and misspelled words, as well as other nozzle cement sprayer helper errors may be contained in the documentation. Code Visit [id number]: [id number] Nery subq tissue 20 sq cm/<
[2019-10-01 10:51] VITALS: BP 133/75; PULSE 64; RESP 16; TEMP 36.8; BMI 30.2
--- NOTE | 2019-10-01 11:31 | PCM.WC.PN ---
(1) Venous stasis ulcer of right lower leg with edema of right lower leg Status: Chronic Current Visit: Yes Code(s): I83.019 - Varicose veins of right lower extremity with ulcer of unspecified site; I83.891 - Varicose veins of right lower extremity with other complications; L97.919 - Non-pressure chronic ulcer of unspecified part of right lower leg with unspecified severity; R60.9 - Edema, unspecified (2) Venous stasis dermatitis of both lower extremities Status: Chronic Current Visit: Yes Code(s): I87.2 - Venous insufficiency (chronic) (peripheral) (3) Ulcer of right lower extremity with fat layer exposed Status: Chronic Current Visit: Yes Code(s): L97.912 - Non-pressure chronic ulcer of unspecified part of right lower leg with fat layer exposed (4) Dermatitis Status: Acute Current Visit: Yes Code(s): L30.9 - Dermatitis, unspecified (5) T2DM (type 2 diabetes mellitus) Status: Chronic Current Visit: No Qualifiers: Diabetes mellitus shelter insulin use: with adjunct faculty for medical terminology use Diabetes mellitus complication status: with skin complications Diabetes mellitus complication detail: with other skin ulcer Qualified Code(s): E11.622 - Type 2 diabetes mellitus with other skin ulcer; Z79.4 - adjunct faculty for medical terminology (current) use of insulin Code(s): E11.9 - Type 2 diabetes mellitus without complications (6) Rheumatoid arthritis Status: Chronic Current Visit: No Code(s): M06.9 - Rheumatoid arthritis, unspecified (7) CKD (chronic kidney disease), stage III Status: Chronic Current Visit: No Code(s): N18.3 - Chronic kidney disease, stage 3 (moderate) Type of Wound Date of Service: 10/01/19 Chief Complaint: swelling and non-healing wounds of right lower extremity History of Wound: Ms. Garcia is a pleasant 74-year-old female who [facility] for evaluation and treatment of swelling and non-healing wounds of RLE. She has been evaluated and treated at [facility] in the past (~10/2018) by Dr. Gonzalez for managment of a non-healing LLE traumatic wound. The patient presents today with her . The patient reports that in June 2019 she developed redness and swelling of her BLE, resulting in blister-like lesions that turned into non-healing ulcers. This was initially managed by her PCP, Dr. Stewart. She was prescribed a course of Augmentin, which she completed approximately 2 months ago. She recalls improvement in erythema and swelling of bilateral lower extremities after completing the antibiotic, but denies complete resolution. Her PCP has also prescribed hydrocortisone lotion, which patient was using for several weeks on her bilateral lower extremities, with minimal improvement. Patient is also on diuretic therapy, managed by her PCP. Patient had left over Fibracol dressing from her previous wound healing center visits, which she has been applying to the ulcers of her right lower extremity. Despite these numerous treatment attempts, the erythema and swelling of patient's bilateral lower extremities, and ulcers of right lower extremity, persist. She notes itching and pain of bilateral lower extremities. She reports a temperature of ~100.0 ?F a few weeks ago, but this resolved spontaneously. She denies any increasing pain, erythema, or swelling from bilateral lower extremities. She reports a small, stable amount of thin, clear to yellow drainage from RLE ulcers. She denies any foul-smelling/purulent drainage. She denies any nausea, vomiting, persistent diarrhea. Patient has a PMH significant for T2 DM, RA, CKD stage III. Her lab work from Dr. Stewart's office was reviewed and was significant for the following: A1c 8.6% (07/29/2019), creatinine 1.41, BUN 26, estimated GFR 39, WBC 5.6, hemoglobin 10.8, albumin 3.3, glucose 412, (08/13/2019). See patient's chart for full details. Progress of Wound: Patient presents today with her son. She was recently hospitalized for a hip fracture, and is now residing in a nursing care facility. Mild improvement in size and appearance of her lateral RLE ulcer today; medial RLE ulcer is healed today 10/01/19. The patient denies any fever, chills, nausea, vomiting, or diarrhea. Denies any signs of infection, including increasing pain, redness, swelling, or drainage from affected area. Patient's dermatitis has nearly resolved on bilateral legs, arms, and back. Patient denies any itching of skin at this time. She completed 1 week of triamcinolone 0.5% cream and ~ 5 days of triamcinolone 0.5% ointment. She has not used the ointment for the last 3 days due to significant improvement of her rash. - Physical Exam Vital Signs Temp Pulse Resp BP 98.2 F 64 16 133/75 H 10/01/19 10:51 10/01/19 10:51 10/01/19 10:51 10/01/19 10:51 General: Alert, Oriented x3, Cooperative, No apparent distress HEENT: Atraumatic, EOMI, Normocephalic Oral: Moist Mucosa Neck: Supple, No JVD, Trachea Midline Lungs: Normal air movement Cardiovascular: Regular rate Extremities: No clubbing, No cyanosis, Capillary Refill Less than 3 Seconds, No Calf Tenderness, Diminished Peripheral Pulses, Edema - 1+ pitting edema of bilateral lower extremities. Skin of bilateral lower extremities is smooth, shiny, and without hair below the knee., Tenderness - Tenderness to palpation of BLE Skin: Ulcer/ Wound - Venous stasis ulcer of medial RLE is healed today, 10/01/2019. Venous stasis ulcer of lateral RLE is mildly improved. Subcutaneous layer is exposed, no tunneling, undermining, or probing to bone. Small amount of slough present in ulcer bed. Generalized erythema and edema of BLE is stable. No increased warmth in RLE versus LLE., Rash Present - Vesiculopapular rash and excoriation of bilateral arms, shoulders, back, and legs is significantly improved and nearly resolved. Only a small amount of dry, scaly skin remains on bilateral lower extremities. Wound Measurements and Assessment WC - Nurse 1 - General Ulcer Measurement Start: 09/07/19 14:27 Freq: Status: Active Protocol: Activity Type Activity Date Activity User E-Sign Co-Sign Detail Recorded Client Recorded Date Recorded By Document 10/01/19 10:51 [facility] [id number] 10/01/19 10:57 [facility] 10/01/19 10:51 Wound Center Nurse 1 [Ulcer Assessment] # 3- Lateral RLE -Combined with other wound No -Current Size (cm) - Length 0.8 -Current Size (cm) - Width 1.2 -Current Size (cm) - Depth 0.2 -Total Square Cm 0.96 -Photo Taken No -Epithelialization None Present -Tunneling No -Undermining/Tunneling No -Circular Undermining No -Exudate Amt Small -Exudate Type Serous -Wound Margin Distinct, Outline Attached -Granulation Amt Small (1-33%) -Granulation Quality Red -Slough/Fibrin Yes -Necrosis Amt Large (67-100%) -Necrotic Tissue Type Adherent Slough -Texture (Sandy-wound Skin Appearance) Assessed, Scarring -Moisture (Sandy-wound Skin Appearance Assessed,Dry/ ) Scaly -Color (Sandy-wound Skin Appearance) Assessed -Temperature (Sandy-wound Skin No Abnormality Appearance) (Pt Warm) -Tenderness on Palpation (Sandy-wound No Skin Appearance) -Ulcer Cleansing Rinsed/ Irrigated with Saline -Foul Odor after Cleansing No -Anesthetic Used 5% Lidocaine Gel #2- Medial RLE Cluster -Combined with other wound No -Current Size (cm) - Length 0 -Current Size (cm) - Width 0 -Current Size (cm) - Depth 0 -Total Square Cm 0 -Epithelialization Large 67-100% [Edema Assessment] -Lower Limb Edema Present Yes -Right Calf (cm) 35.7 -Right Ankle (cm) 22.2 WC - Nurse 2 - General Ulcer CM Notes Start: 09/07/19 14:27 Freq: Status: Active Protocol: Activity Type Activity Date Activity User E-Sign Co-Sign Detail Recorded Client Recorded Date Recorded By Document 10/01/19 11:11 DV [id number] 10/01/19 11:23 DV 10/01/19 11:11 Wound Center Nurse 2 [Procedure/Treatment] # 3- Lateral RLE -Time 11:11 -Correct Patient Yes -Correct Side, Site, Position Yes -Correct Procedure Yes -Procedure Performed Yes -Type of Procedure Debridement -Clinical Debridement Subcutaneous -Post Debridement Size (cm) - Length 1.0 -Post Debridement Size (cm) - Width 1.3 -Post Debridement Size (cm) - Depth 0.1 -Total Square Cm 1.30 -Wound/Ulcer Outcome Not Healed -Ulcer Cleansing Rinsed/ Irrigated with Saline -Foul Odor after Cleansing No -Bioengineered Tissue Yes -Type of bioengineered Tissue EPIFIX -Expiration Date 06/04/24 -Product Lot Number [id number] -Percent Used 100 -Saline Lot Number HYDRO -Bleeding Controlled with Pressure -Other [id number] EXP: -Offloading No -Treatment Response Procedure Tolerated Well #2- Medial RLE Cluster -Time 11:15 -Correct Patient Yes -Correct Side, Site, Position Yes -Correct Procedure No -Procedure Performed No -Post Debridement Size (cm) - Length 0 -Post Debridement Size (cm) - Width 0 -Post Debridement Size (cm) - Depth 0 -Total Square Cm 0 -Wound/Ulcer Outcome Healed- Epithelialized [See Physician Procedure note for Specifics] Musculoskeletal: Tenderness - Tenderness to palpation/manipulation of bilateral lower extremities, and with debridement of RLE ulcer Neurological: - - Restlessness and tremors of bilateral lower extremities greatly improved today Psych/Mental Status: Normal Affect, Appropriate Debridement Note Post-Debridement Measurements/Treatment WC - Nurse 2 - General Ulcer CM Notes Start: 09/07/19 14:27 Freq: Status: Active Protocol: Activity Type Activity Date Activity User E-Sign Co-Sign Detail Recorded Client Recorded Date Recorded By Document 09/07/19 15:12 DV [id number] 09/07/19 15:28 DV Document 09/17/19 12:27 DV [id number] 09/17/19 12:35 DV Document 09/24/19 11:02 DV [id number] 09/24/19 11:09 DV Document 10/01/19 11:11 DV [id number] 10/01/19 11:23 DV 09/07/19 09/17/19 09/24/19 15:12 12:27 11:02 Wound Center Nurse 2 # 3- Lateral RLE -Time 15:13 12:29 11:07 -Correct Patient Yes Yes Yes -Correct Side, Site, Position Yes Yes Yes -Correct Procedure Yes Yes Yes -Procedure Performed Yes Yes Yes -Type of Procedure Debridement Debridement Debridement -Clinical Debridement Subcutaneous Subcutaneous Subcutaneous -Post Debridement Size (cm) - Length 1.1 1.1 1.0 -Post Debridement Size (cm) - Width 1.4 1.7 1.4 -Post Debridement Size (cm) - Depth 0.2 0.2 0.1 -Total Square Cm 1.54 1.87 1.40 -Wound/Ulcer Outcome Not Healed Not Healed Not Healed -Ulcer Cleansing Rinsed/ Rinsed/ Irrigated with Irrigated with Saline Saline -Foul Odor after Cleansing No No -Bioengineered Tissue No -Type of bioengineered Tissue -Expiration Date -Product Lot Number -Percent Used -Saline Lot Number -Bleeding Controlled with Pressure Pressure -Other -Offloading No No -Treatment Response Procedure Procedure Tolerated Well Tolerated Well #2- [facility] RLE Cluster -Time 15:24 12:31 11:04 -Correct Patient Yes Yes Yes -Correct Side, Site, Position Yes Yes Yes -Correct Procedure Yes Yes Yes -Procedure Performed Yes Yes Yes -Type of Procedure Debridement Debridement Debridement -Clinical Debridement Subcutaneous Subcutaneous Subcutaneous -Post Debridement Size (cm) - Length 2.0 0.5 0.3 -Post Debridement Size (cm) - Width 4.6 0.4 0.3 -Post Debridement Size (cm) - Depth 0.1 0.2 0.1 -Total Square Cm 9.20 0.20 0.09 -Wound/Ulcer Outcome Not Healed Not Healed Not Healed -Ulcer Cleansing Rinsed/ Rinsed/ Rinsed/ Irrigated with Irrigated with Irrigated with Saline Saline Saline -Foul Odor after Cleansing No No No -Bioengineered Tissue No No No -Bleeding Controlled with Pressure NA Pressure -Offloading No No No -Treatment Response Procedure Procedure Procedure Tolerated Well Tolerated Well Tolerated Well Pain Scale: 0-10 Numeric Is Patient Pain Free? Yes Yes Yes 10/01/19 11:11 Wound Center Nurse 2 # 3- Lateral RLE -Time 11:11 -Correct Patient Yes -Correct Side, Site, Position Yes -Correct Procedure Yes -Procedure Performed Yes -Type of Procedure Debridement -Clinical Debridement Subcutaneous -Post Debridement Size (cm) - Length 1.0 -Post Debridement Size (cm) - Width 1.3 -Post Debridement Size (cm) - Depth 0.1 -Total Square Cm 1.30 -Wound/Ulcer Outcome Not Healed -Ulcer Cleansing Rinsed/ Irrigated with Saline -Foul Odor after Cleansing No -Bioengineered Tissue Yes -Type of bioengineered Tissue EPIFIX -Expiration Date 06/04/24 -Product Lot Number [id number] -Percent Used 100 -Saline Lot Number HYDRO -Bleeding Controlled with Pressure -Other [id number] EXP: -Offloading No -Treatment Response Procedure Tolerated Well #2- Medial RLE Cluster -Time 11:15 -Correct Patient Yes -Correct Side, Site, Position Yes -Correct Procedure No -Procedure Performed No -Type of Procedure -Clinical Debridement -Post Debridement Size (cm) - Length 0 -Post Debridement Size (cm) - Width 0 -Post Debridement Size (cm) - Depth 0 -Total Square Cm 0 -Wound/Ulcer Outcome Healed- Epithelialized -Ulcer Cleansing -Foul Odor after Cleansing -Bioengineered Tissue -Bleeding Controlled with -Offloading -Treatment Response Pain Scale: 0-10 Numeric Is Patient Pain Free? Wound debrided: Lateral RLE Laterality: Right Type of Debridement: Excisional debridement Anesthesia Used: 4% Lidocaine Solution, 5% Lidocaine Gel Depth: in the subcutaneous layer Percentage of wound debrided: 100 Instrument Used: 5mm curette Tissue Removed: Slough and devitalized tissue Severity: Fat Layer Exposed Amount of bleeding with debridement: Mild Bleeding Controlled with: Pressure Patient tolerated procedure well Assessment/Plan Active Problems Venous stasis dermatitis of both lower extremities (Chronic) Ulcer of right lower extremity with fat layer exposed (Chronic) Venous stasis ulcer of right lower leg with edema of right lower leg (Chronic) Dermatitis (Acute) Assessment: 1. Venous stasis dermatitis of BLE, chronic. 2. Ulcers of RLE with fat layer exposed, chronic. 3. Venous stasis ulcer of RLE with edema of RLE, chronic (medial--healed; lateral--improving). 4. T2DM, insulin-dependent, chronic. 5. Rheumatoid arthritis, chronic. 6. CKD, stage III, chronic. 7. Dermatitis-- improved Plan: Debridement performed today in clinic as annotated above. Medial RLE ulcer is healed today, 10/01/2019. Epi-fix applied to lateral RLE ulcer, 100% of product was used. Covered with hydrogel and Adaptic touch, and reinforced with Steri-Strips. Covered with gauze and double Tubigrip's. Triamcinolone 0.025% lotion prescribed, to be used twice daily on MWF. Patient is to continue using OTC moisturizers such as Aquaphor, Eucerin, or CeraVe on all other days. Patient instructed on avoiding topical steroid use on her RLE ulcer, as well as avoiding axilla, groin, face, or breasts. At home wound-care instructions: Keep dressing clean and dry. Remove gauze covering as needed due to drainage/contamination. Reinforce Steri-Strips as needed. Do not remove dressing; it will be removed at next Wound Center visit. In regards to rash, keep affected areas of skin clean and dry as well, apply triamcinolone lotion as directed. Do not use any scented or dyed products on skin. Wash hands thoroughly after contact with triamcinolone lotion. Compression: Double Tubigrips applied to bilateral lower extremities. Off-loading: Keep feet elevated as much as possible, at or above waist level. Attempt to recline and avoid hinging at hips as much as possible when feet are elevated, to avoid fluid accumulation in thighs/upper legs. Diet: Patient encouraged to increase protein and vitamin C intake while taking caution to avoid high carbohydrate and/or sugar intake. Discussed the importance of tight glycemic control. Labs/cultures/imaging: Labs done while at [facility] reveal the following: WBC 10.3, hemoglobin 9.3, neutrophils 83.1%, absolute neutrophils 8.6, creatinine 1.09, estimated GFR 52, glucose 163, A1c 9.1%. Patient's wound cultures were positive for the followin+ Staphylococcus aureus, rare Streptococcus agalactiae. Given small amount of purulent drainage, and increase in ulcer/sandy-ulcer pain, patient has completed doxycycline 100 mg p.o. twice daily x10 days. Vascular studies (venous and arterial) ordered today, to be completed at earliest convenience. Follow-up: Return to clinic in 1 week for re-evaluation by provider. Return sooner or report to the emergency room should symptoms worsen, or new symptoms arise. Note: [employer] speech recognition open hearth door liner software was used to create portions of this document. Sound-alike and misspelled words, as well as other open hearth door liner errors may be contained in the documentation. Code Visit 150xxx-152xx: 35876 Skin sub graft trnk/arm/leg
== END 2019-10-02 23:59 ==
LOC: WC 10:45
PROVIDERS: PCP Family Medicine; Referring Provider Nurse Practitioner Family; Visit Provider Nurse Practitioner Family
DX: I83.018 Varicose veins of right lower extremity with ulcer other part of lower leg (principal); L97.812 Non-pressure chronic ulcer of other part of right lower leg with fat layer exposed; M06.9 Rheumatoid arthritis, unspecified; N18.3 Chronic kidney disease, stage 3 (moderate); E11.22 Type 2 diabetes mellitus with diabetic chronic kidney disease; Z79.899 Other long term (current) drug therapy; Z79.4 Long term (current) use of insulin
CPT/HCPCS: 11042; 15271; 29580; 87070; 87075; 87077; 87186; 87205; 87640; 99213; Q4186; G0463

== ENCOUNTER 2019-10-29 09:00 | Outpatient (RCR) | payer MEDICARE, OTHER, SELFPAY ==
[2019-10-03 01:01] VITALS: BP 133/75; PULSE 64; RESP 16; TEMP 36.8; BMI 26.1
--- NOTE | 2019-10-08 08:16 | ART_ITS ---
Reason For Study: PAD Procedure A bilateral lower extremity continuous wave Doppler with analog waveform analysis,segmental pressures,and ankle brachial indexes without exercise. Left Segmental Pressures Left brachial= 112mmHg. Left posterior tibial artery = NCmmHg. Left dorsalis pedis artery = NCmmHg. Left digit = .71 mmHg. The left posterior tibial artery waveforms are biphasic. The left dorsalis pedis waveforms are biphasic. Right Segmental Pressures Right brachial= 114mmHg. Right posterior tibial artery = NCmmHg. Right dorsalis pedis artery = NCmmHg. Right digit = .74 mmHg. The right posterior tibial artery waveforms are biphasic. The right dorsalis pedis waveforms are biphasic. Indices The right digital-brachial index is .71. The right ankle brachial index by the dorsalis pedis is - NC-. The right ankle brachial index by the posterior tibial artery is -NC-. The left digital- brachial index is .74. The left ankle brachial index by the dorsalis pedis is -NC-. The left ankle brachial index by the posterior tibial artery is -NC-. Interpretation Summary Biphasic Doppler waveforms are noted at ankle level bilaterally. Pulse-volume recordings appear satisfactory at all levels bilaterally, including low-thigh, calf, ankle, and digital levels. Resting ankle-brachial indices could not be determined due to the non-compressibility of the vasculature at ankle level bilaterally. Digital-brachial indices are normal bilaterally. There is evidence of arterial calcification at ankle level bilaterally. There is no evidence of significant arterial occlusive disease in the lower extremities bilaterally. Ordering Physician: Nathalie Mason Referring Physician: PREETI AGUDELO Performed By: LISA ROBLES RDCS
--- NOTE | 2019-10-08 08:16 | VDLE_ITS ---
Reason For Study: SWELLING RIGHT LEFT CFV is compressible, spontaneous, competent CFV is compressible, spontaneous, competent, and demonstrates pulsatile venous flow. and demonstrates pulsatile venous flow. FV is compressible, spontaneous, competent FV is compressible, spontaneous, competent and demonstrates pulsatile venous flow. and demonstrates pulsatile venous flow. POP V is compressible, spontaneous, competent POP V is compressible, spontaneous, competent and demonstrates pulsatile venous flow. and demonstrates pulsatile venous flow. T/P Trunk is compressible. T/P Trunk is compressible. PTV is compressible. PTV is compressible. RT PerV is compressible. LT PerV is compressible. SFJ is competent and measures 1.28 X 1.16 cm. SFJ is competent and measures .77 X .61 cm. GSV above knee is competent. GSV at knee measures .36 X .42 cm. GSV at knee measures .49 X .49 cm. GSV is competent throughout. GSV below knee is INCOMPETENT for greater SSV at junction is competent and measures .41 than 0.5 seconds. X .41 cm. SSV at junction is competent and measures .2 X .25 cm. Procedure Exam performed in department. A preliminary report was called and/or faxed to [facility]. Interpretation Summary Deep veins of the lower extremities are bilaterally patent and compressible segmentally. There is no evidence of deep vein thrombosis on either side. Valvular competence appears intact within the proximal deep venous systems bilaterally. The great saphenous veins appear bilaterally patent and compressible segmentally. Sapheno-femoral junctions are bilaterally competent . The right great saphenous vein appears competent above the knee. The right great saphenous vein appears incompetent below the knee. The left great saphenous vein appears segmentally competent. Small saphenous veins are patent and competent bilaterally. Pulsatile flow is noted in the deep venous system bilaterally, which may be indicative of elevated central venous pressure (i.e. congestive heart failure, tricuspid valve insufficiency, etc.). Clinical correlation is advised. Ordering Physician: Nathalie Mason Referring Physician: PREETI AGUDELO Performed By: Naomi Jarvis, LYNN, RVT
[2019-10-08 09:40] LABS: Bedside Glucose 43 mg/dL (70-110)
--- NOTE | 2019-10-08 10:10 | WC ---
Received a call from Kitty at [facility] cardiovascular lab concerning patient's behavior episode of lethargic and slurred speech during her vascular testing this morning. Blood sugar reading 43. Given snacks and drinks per Kitty. Blood sugar rechecked twice with readings of [address] Patient [address] Stewart notified per Kitty. Nathalie Mason NP and Juliann Hernandez RN. Nathalie OROPEZA requested blood sugar recheck.
[2019-10-08 10:34] VITALS: BP 177/54; PULSE 58; RESP 18; TEMP 35.9; BMI 26.1
--- NOTE | 2019-10-08 10:35 | WC ---
Pt brendan performed 90. pt given glucerna and granola bar.
[2019-10-08 10:36] LABS: Bedside Glucose 90 mg/dL (70-110)
[2019-10-08 11:16] LABS: Bedside Glucose 103 mg/dL (70-110)
[2019-10-08 11:16] LABS: Bedside Glucose 78 mg/dL (70-110)
[2019-10-08 11:35] LABS: Bedside Glucose 149 mg/dL (70-110)
--- NOTE | 2019-10-11 09:35 | PN.PCM_ITS ---
(1) Venous stasis ulcer of right lower leg with edema of right lower leg Status: Chronic Code(s): I83.019 - Varicose veins of right lower extremity with ulcer of unspecified site; I83.891 - Varicose veins of right lower extremity with other complications; L97.919 - Non-pressure chronic ulcer of unspecified part of right lower leg with unspecified severity; R60.9 - Edema, unspecified (2) Ulcer of right lower extremity with fat layer exposed Status: Chronic Code(s): L97.912 - Non-pressure chronic ulcer of unspecified part of right lower leg with fat layer exposed (3) Venous stasis dermatitis of both lower extremities Status: Chronic Code(s): I87.2 - Venous insufficiency (chronic) (peripheral) (4) Dermatitis Status: Acute Code(s): L30.9 - Dermatitis, unspecified (5) CKD (chronic kidney disease), stage III Status: Chronic Code(s): N18.3 - Chronic kidney disease, stage 3 (moderate) (6) Rheumatoid arthritis Status: Chronic Code(s): M06.9 - Rheumatoid arthritis, unspecified (7) T2DM (type 2 diabetes mellitus) Status: Chronic Qualifiers: Diabetes mellitus superintendent terminal insulin use: with care home use Diabetes mellitus complication status: with skin complications Diabetes mellitus complication detail: with other skin ulcer Qualified Code(s): E11.622 - Type 2 diabetes mellitus with other skin ulcer; Z79.4 - superintendent terminal (current) use of insulin Code(s): E11.9 - Type 2 diabetes mellitus without complications Type of Wound Date of Service: 10/08/19 Chief Complaint: swelling and non-healing wounds of right lower extremity History of Wound: Ms. Garcia is a pleasant 74-year-old female who [facility] for evaluation and treatment of swelling and non-healing wounds of RLE. She has been evaluated and treated at the [facility] in the past (~10/2018) by Dr. Gonzalez for managment of a non- healing LLE traumatic wound. The patient presents today with her . The patient reports that in June 2019 she developed redness and swelling of her BLE, resulting in blister-like lesions that turned into non-healing ulcers. This was initially managed by her PCP, Dr. Stewart. She was prescribed a course of Augmentin, which she completed approximately 2 months ago. She recalls improvement in erythema and swelling of bilateral lower extremities after completing the antibiotic, but denies complete resolution. Her PCP has also prescribed hydrocortisone lotion, which patient was using for several weeks on her bilateral lower extremities, with minimal improvement. Patient is also on diuretic therapy, managed by her PCP. Patient had left over Fibracol dressing from her previous wound healing center visits, which she has been applying to the ulcers of her right lower extremity. Despite these numerous treatment attempts, the erythema and swelling of patient's bilateral lower extremities, and ulcers of right lower extremity, persist. She notes itching and pain of bilateral lower extremities. She reports a temperature of ~100.0 ?F a few weeks ago, but this resolved spontaneously. She denies any increasing pain, erythema, or swelling from bilateral lower extremities. She reports a small, stable amount of thin, clear to yellow drainage from RLE ulcers. She denies any foul- smelling/purulent drainage. She denies any nausea, vomiting, persistent diarrhea. Patient has a PMH significant for T2 DM, RA, CKD stage III. Her lab work from Dr. Stewart's office was reviewed and was significant for the following: A1c 8.6% (07/29/2019), creatinine 1.41, BUN 26, estimated GFR 39, WBC 5.6, hemoglobin 10.8, albumin 3.3, glucose 412, (08/13/2019). See patient's chart for full details. Progress of Wound: Patient recently sustained a hip fracture, and has been released from her nursing facility back to her home. She did have a home visit to assess need for continued nursing care, it was determined that there is no further need for nursing care, unless warranted for wound treatment. Patient reports she is able to manage her wound care independently at this time, and does not feel home health is necessary. Lateral RLE ulcer stable; medial RLE ulcer remains healed. The patient denies any fever, chills, nausea, vomiting, or diarrhea. Denies any signs of infection, including increasing pain, redness, swelling, or drainage from affected area. Patient's dermatitis has resolved on bilateral legs, arms, and back. Patient denies any itching of skin at this time. She completed 1 week of triamcinolone 0.5% cream and ~ 5 days of triamcinolone 0.5% ointment. She is now using triamcinolone 0.025% lotion BID x 3 days per week for maintenance. Patient completed vascular studies 10/08/2019 before appointment. While she was at cardiovascular services, she began feeling weak, lethargic and clammy, with slurred speech. Her blood sugar was checked and her glucose was 43 mg/dL. She reported she had only eaten a light breakfast with her morning insulin. She was given several snacks and began feeling better quickly. Her blood glucose on recheck was 78 mg/dL, and subsequently 103 mg/dL. Cardiovascular services notified patient's PCP, Dr. Stewart. Blood sugar was checked when patient arrived to the wound healing center, and was 90 mg/dL at that time. Patient was given a Glucerna and granola bar. Shortly after, I assessed the patient and she reported feeling well with no complaints or symptoms of hypoglycemia. Her blood sugar was again checked before departing the [facility], and was 149 mg/dL at that time and she was permitted to return home, with instructions to contact her PCP for further instructions. Arterial studies from 10/08/2019 showed the following: Right MONAE (DP and PT) non- calculable; left MONAE (DP and PT) non-calculable; right DBI 0.71; left DBI 0.74; there is evidence of arterial calcification at ankle level bilaterally; there is no evidence of significant arterial occlusive disease in the lower extremities bilaterally (see report for full details). Venous studies from 10/08/2019 showed the following:The deep veins of the lower extremities are bilaterally patent and compressible segmentally. Valvular competence appears intact within the proximal deep venous systems bilaterally. The right great saphenous vein appears competent above the knee, but incompetent below the knee. The left great saphenous vein appears segmentally competent. Pulsatile flow was noted in the deep venous system bilaterally, which may be indicative of elevated central venous pressure (i.e. congestive heart failure, tricuspid valve insufficiency, etc.). See report for full details. - Physical Exam Vital Signs Temp Pulse Resp BP 96.6 F L 58 L 18 177/54 H 10/08/19 10:34 10/08/19 10:34 10/08/19 10:34 10/08/19 10:34 General: Alert, Cooperative, No apparent distress HEENT: Atraumatic, EOMI, Normocephalic Oral: Moist Mucosa Neck: Supple, No JVD, Trachea Midline Lungs: Clear to auscultation, Normal air movement, No rhonchi, No wheeze, No rales Cardiovascular: Regular rate Abdomen: Bowel Sounds Present, Soft, Non Tender, Non-Distended Extremities: No clubbing, No cyanosis, Capillary Refill Less than 3 Seconds, Diminished Peripheral Pulses, Edema - 1+ pitting edema of bilateral lower extremities. Skin of bilateral lower extremities is smooth, shiny, and without hair below the knee., Tenderness - Tenderness to palpation of bilateral lower extremities Skin: No rashes - Vesiculopapular rash and excoriation of bilateral arms, shoulders, back, and legs is resolved., Ulcer/ Wound - Venous stasis ulcer of the medial RLE remains healed. Venous stasis ulcer of lateral RLE is stable. Subcutaneous layer is exposed, no tunneling, undermining, or probing to bone. Small amount of slough present in ulcer bed. No purulent or foul-smelling drainage. Generalized erythema and edema of right lower extremity is greatly improved. No increased warmth in RLE versus LLE. Wound Measurements and Assessment WC - Nurse 1 - General Ulcer Measurement Start: 10/08/19 10:34 Freq: Status: Active Protocol: Activity Type Activity Date Activity User E-Sign Co-Sign Detail Recorded Client Recorded Date Recorded By Document 10/08/19 10:34 RB [id number] 10/08/19 10:48 RB 10/08/19 10:34 Wound Center Nurse 1 [Ulcer Assessment] # 3- Lateral RLE -Combined with other wound No -Current Size (cm) - Length 0.7 -Current Size (cm) - Width 1 -Current Size (cm) - Depth 0.1 -Total Square Cm 0.7 -Photo Taken Yes -Tunneling No -Undermining/Tunneling No -Circular Undermining No -Exudate Amt Small -Exudate Type Serosanguineous -Granulation Amt Medium (34-66%) -Granulation Quality Red -Slough/Fibrin Yes -Necrosis Amt Medium (34-66%) -Necrotic Tissue Type Adherent Slough -Structure Exposed N/A -Texture (Sandy-wound Skin Appearance) Assessed, Scarring -Moisture (Sandy-wound Skin Appearance Assessed,Dry/ ) Scaly -Color (Sandy-wound Skin Appearance) Assessed -Temperature (Sandy-wound Skin No Abnormality Appearance) (Pt Warm) -Tenderness on Palpation (Sandy-wound No Skin Appearance) -Ulcer Cleansing Wound Cleanser -Foul Odor after Cleansing No -Anesthetic Used 4% Lidocaine Solution [Edema Assessment] -Lower Limb Edema Present Yes -Right Calf (cm) 37 -Right Ankle (cm) 21.5 WC - Nurse 2 - General Ulcer CM Notes Start: 10/08/19 10:34 Freq: Status: Active Protocol: Activity Type Activity Date Activity User E-Sign Co-Sign Detail Recorded Client Recorded Date Recorded By Document 10/08/19 11:13 DV [id number] 10/08/19 11:24 DV 10/08/19 11:13 Wound Center Nurse 2 [Procedure/Treatment] # 3- Lateral RLE -Time 11:13 -Correct Patient Yes -Correct Side, Site, Position Yes -Correct Procedure Yes -Procedure Performed Yes -Type of Procedure Debridement -Clinical Debridement Subcutaneous -Post Debridement Size (cm) - Length 0.8 -Post Debridement Size (cm) - Width 1.1 -Post Debridement Size (cm) - Depth 0.1 -Total Square Cm 0.88 -Wound/Ulcer Outcome Not Healed -Ulcer Cleansing Rinsed/ Irrigated with Saline -Foul Odor after Cleansing No -Bioengineered Tissue Yes -Type of bioengineered Tissue EPIFIX -Expiration Date 06/04/24 -Product Lot Number [id number] -Percent Used 100 -Saline Lot Number HYDRO -Topical Lidocaine (%) 5 -Bleeding Controlled with Pressure -Offloading No -Treatment Response Procedure Tolerated Well [See Physician Procedure note for Specifics] Pain Scale: 0-10 Numeric [Pain] -Is Patient Pain Free? Yes Musculoskeletal: Tenderness - Tenderness to palpation/manipulation of bilateral lower extremities, and with debridement of RLE ulcer Psych/Mental Status: Normal Affect, Appropriate Debridement Note Post-Debridement Measurements/Treatment WC - Nurse 2 - General Ulcer CM Notes Start: 10/08/19 10:34 Freq: Status: Active Protocol: Activity Type Activity Date Activity User E-Sign Co-Sign Detail Recorded Client Recorded Date Recorded By Document 10/08/19 11:13 DV [id number] 10/08/19 11:24 DV 10/08/19 11:13 Wound Center Nurse 2 # 3- Lateral RLE -Time 11:13 -Correct Patient Yes -Correct Side, Site, Position Yes -Correct Procedure Yes -Procedure Performed Yes -Type of Procedure Debridement -Clinical Debridement Subcutaneous -Post Debridement Size (cm) - Length 0.8 -Post Debridement Size (cm) - Width 1.1 -Post Debridement Size (cm) - Depth 0.1 -Total Square Cm 0.88 -Wound/Ulcer Outcome Not Healed -Ulcer Cleansing Rinsed/ Irrigated with Saline -Foul Odor after Cleansing No -Bioengineered Tissue Yes -Type of bioengineered Tissue EPIFIX -Expiration Date 06/04/24 -Product Lot Number [id number] -Percent Used 100 -Saline Lot Number HYDRO -Topical Lidocaine (%) 5 -Bleeding Controlled with Pressure -Offloading No -Treatment Response Procedure Tolerated Well Pain Scale: 0-10 Numeric Is Patient Pain Free? Yes Wound debrided: Lateral RLE Laterality: Right Anesthesia Used: 5% Lidocaine Gel Depth: in the subcutaneous layer Percentage of wound debrided: 100 Instrument Used: 5mm curette Tissue Removed: Slough and devitalized tissue Severity: Fat Layer Exposed Amount of bleeding with debridement: Mild Bleeding Controlled with: Pressure Patient tolerated procedure well Assessment/Plan Assessment: 1. Venous stasis dermatitis of BLE, chronic. 2. Ulcers of RLE with fat layer exposed, chronic. 3. Venous stasis ulcer of RLE with edema of RLE, chronic (medial--healed; lateral--improving). 4. T2DM, insulin-dependent, chronic. 5. Rheumatoid arthritis, chronic. 6. CKD, stage III, chronic. 7. Dermatitis--resolved Plan: Debridement performed today in clinic as annotated above. Epi-fix #2 applied to lateral RLE ulcer, 100% of product was used. Epi-fix lead generation representative, Jorge Luis, was present in room for application of advanced skin substitute. Verbal consent was given by patient for lead generation representative to be present in room. Covered with hydrogel and Adaptic touch, and reinforced with Steri-Strips. Covered with gauze and single Tubigrip's. Continue use of triamcinolone 0.025% lotion twice daily on MWF; continue using OTC moisturizers such as Aquaphor, Eucerin, or CeraVe on all other days. Patient instructed on avoiding topical steroid use on her RLE ulcer, as well as avoiding axilla, groin, face, or breasts. At home wound-care instructions: Keep dressing clean and dry. Remove gauze covering as needed due to drainage/contamination. Reinforce Steri-Strips as needed. Do not remove dressing; it will be removed at next visit. In regards to rash, keep affected areas of skin clean and dry as well, apply triamcinolone lotion as directed. Do not use any scented or dyed products on skin. Wash hands thoroughly after contact with triamcinolone lotion. Compression: Single Tubigri ps applied to bilateral lower extremities. Off-loading: Keep feet elevated as much as possible, at or above waist level. Avoid prolonged standing or dangling of legs. Diet: Patient encouraged to increase protein and vitamin C intake while taking caution to avoid high carbohydrate and/or sugar intake. Discussed the importance of tight glycemic control. Patient advised to follow-up with her primary care provider regarding her hypoglycemic events that took place today. Labs/cultures/imaging: Labs done while at [facility] reveal the following: WBC 10.3, hemoglobin 9.3, neutrophils 83.1%, absolute neutrophils 8.6, creatinine 1.09, estimated GFR 52, glucose 163, A1c 9.1%. Patient's wound cultures were positive for the followin+ Staphylococcus aureus, rare Streptococcus agalactiae. Given small amount of purulent drainage, and increase in ulcer/sandy-ulcer pain, patient has completed doxycycline 100 mg p.o. twice daily x10 days. Arterial studies from 10/08/2019 showed the following: Right MONAE (DP and PT) non-calculable; left MONAE (DP and PT) non-calculable; right DBI 0.71; left DBI 0.74; there is evidence of arterial calcification at ankle level bilaterally; there is no evidence of significant arterial occlusive disease in the lower extremities bilaterally (see report for full details). Venous studies from 10/08/2019 showed the following:The deep veins of the lower extremities are bilaterally patent and compressible segmentally. Valvular competence appears intact within the proximal deep venous systems bilaterally. The right great saphenous vein appears competent above the knee, but incompetent below the knee. The left great saphenous vein appears segmentally competent. Pulsatile flow was noted in the deep venous system bilaterally, which may be indicative of elevated central venous pressure (i.e. congestive heart failure, tricuspid valve insufficiency, etc.). See report for full details. Follow-up: Return to clinic in 1 week for re-evaluation by provider. Return sooner or report to the emergency room should symptoms worsen, or new symptoms arise. Note: [employer] speech recognition signal operator technical software was used to create portions of this d ocument. Sound-alike and misspelled words, as well as other signal operator technical errors may be contained in the documentation. [id number]: [id number] Skin sub graft trnk/arm/leg
[2019-10-15 12:02] VITALS: BP 145/51; PULSE 62; RESP 16; TEMP 36.8; BMI 26.1
--- NOTE | 2019-10-15 18:16 | PN.PCM_ITS ---
(1) Ulcer of right lower extremity with fat layer exposed Status: Chronic Current Visit: Yes Code(s): L97.912 - Non-pressure chronic ulcer of unspecified part of right lower leg with fat layer exposed (2) Venous stasis ulcer of right lower leg with edema of right lower leg Status: Chronic Current Visit: Yes Code(s): I83.019 - Varicose veins of right lower extremity with ulcer of unspecified site; I83.891 - Varicose veins of right lower extremity with other complications; L97.919 - Non-pressure chronic ulcer of unspecified part of right lower leg with unspecified severity; R60.9 - Edema, unspecified Type of Wound Date of Service: 10/15/19 Chief Complaint: swelling and non-healing wounds of right lower extremity History of Wound: Ms. Garcia is a pleasant 74-year-old female who [facility] for evaluation and treatment of swelling and non-healing wounds of RLE. She has been evaluated and treated [facility] in the past (~10/2018) by Dr. Gonzalez for managment of a non- healing LLE traumatic wound. The patient presents today with her . The patient reports that in June 2019 she developed redness and swelling of her BLE, resulting in blister-like lesions that turned into non-healing ulcers. This was initially managed by her PCP, Dr. Stewart. She was prescribed a course of Augmentin, which she completed approximately 2 months ago. She recalls improvement in erythema and swelling of bilateral lower extremities after completing the antibiotic, but denies complete resolution. Her PCP has also prescribed hydrocortisone lotion, which patient was using for several weeks on her bilateral lower extremities, with minimal improvement. Patient is also on diuretic therapy, managed by her PCP. Patient had left over Fibracol dressing from her previous wound healing center visits, which she has been applying to the ulcers of her right lower extremity. Despite these numerous treatment attempts, the erythema and swelling of patient's bilateral lower extremities, and ulcers of right lower extremity, persist. She notes itching and pain of bilateral lower extremities. She reports a temperature of ~100.0 ?F a few weeks ago, but this resolved spontaneously. She denies any increasing pain, erythema, or swelling from bilateral lower extremities. She reports a small, stable amount of thin, clear to yellow drainage from RLE ulcers. She denies any foul- smelling/purulent drainage. She denies any nausea, vomiting, persistent d iarrhea. Patient has a PMH significant for T2 DM, RA, CKD stage III. Her lab work from Dr. Stewart's office was reviewed and was significant for the following: A1c 8.6% (07/29/2019), creatinine 1.41, BUN 26, estimated GFR 39, WBC 5.6, hemoglobin 10.8, albumin 3.3, glucose 412, (08/13/2019). See patient's chart for full details. Progress of Wound: Patient is seen today as a courtesy visit for Nathalie Lobo CNP. Patient recently sustained a hip fracture, and has been released from her nursing facility back to her home. She did have a home visit to assess need for continued nursing care, it was determined that there is no further need for nursing care, unless warranted for wound treatment. Patient reports she is able to manage her wound care independently at this time, and does not feel home health is necessary. Lateral RLE ulcer improved after application of Epifix; medial RLE ulcer remains healed. The patient denies any fever, chills, nausea, vomiting, or diarrhea. Denies any signs of infection, including increasing pain, redness, swelling, or drainage from affected area. Patient's dermatitis has resolved on bilateral legs, arms, and back. Patient denies any itching of skin at this time. She completed 1 week of triamcinolone 0.5% cream and ~ 5 days of triamcinolone 0.5% ointment. She is now using triamcinolone 0.025% lotion BID x 3 days per week for maintenance. Patient completed vascular studies 10/08/2019 before appointment. Arterial studies from 10/08/2019 showed the following: Right MONAE (DP and PT) non-calculable; left MONAE (DP and PT) non-calculable; right DBI 0.71; left DBI 0.74; there is evidence of arterial calcification at ankle level bilaterally; there is no evidence of significant arterial occlusive disease in the lower extremities bilaterally (see report for full details). Venous studies from 10/08/2019 showed the following:The deep veins of the lower extremities are bilaterally patent and compressible segmentally. Valvular competence appears intact within the proximal deep venous systems bilaterally. The right great saphenous vein appears competent above the knee, but incompetent below the knee. The left great saphenous vein appears segmentally competent. Pulsatile flow was noted in the deep venous system bilaterally, which may be indicative of elevated central venous pressure (i.e. congestive heart failure, tricuspid valve insufficiency, etc.). See report for full details. - Physical Exam Vital Signs Temp Pulse Resp BP 98.3 F 62 16 145/51 H 10/15/19 12:02 10/15/19 12:02 10/15/19 12:02 10/15/19 12:02 General: Alert, Oriented x3, Cooperative, No apparent distress HEENT: Atraumatic, Normocephalic Oral: Moist Mucosa Neck: Supple Abdomen: Obese Extremities: Edema Skin: Ulcer/ Wound Wound Measurements and Assessment WC - Nurse 1 - General Ulcer Measurement Start: 10/08/19 10:34 Freq: Status: Active Protocol: Activity Type Activity Date Activity User E-Sign Co-Sign Detail Recorded Client Recorded Date Recorded By Document 10/15/19 12:02 MW [id number] 10/15/19 12:04 MW 10/15/19 12:02 Wound Center Nurse 1 [Ulcer Assessment] # 3- Lateral RLE -Combined with other wound No -Current Size (cm) - Length 0.7 -Current Size (cm) - Width 1.0 -Current Size (cm) - Depth 0.1 -Total Square Cm 0.70 -Photo Taken No -Epithelialization None Present -Tunneling No -Undermining/Tunneling No -Circular Undermining No -Exudate Amt None Present -Wound Margin Flat & Intact -Granulation Amt None Present (0 %) -Granulation Quality N/A -Slough/Fibrin Yes -Necrosis Amt Large (67-100%) -Necrotic Tissue Type Adherent Slough -Structure Exposed N/A -Texture (Sandy-wound Skin Appearance) Assessed, Localized Edema ,Scarring -Moisture (Sandy-wound Skin Appearance No Abnormality, ) Assessed -Color (Sandy-wound Skin Appearance) No Abnormality, Assessed -Temperature (Sandy-wound Skin No Abnormality Appearance) (Pt Warm) -Tenderness on Palpation (Sandy-wound No Skin Appearance) -Ulcer Cleansing SOAP AND WATER -Foul Odor after Cleansing No -Anesthetic Used 4% Lidocaine Solution [Edema Assessment] -Lower Limb Edema Present Yes -Right Calf (cm) 36.0 -Right Ankle (cm) 21.1 WC - Nurse 2 - General Ulcer CM Notes Start: 10/08/19 10:34 Freq: Status: Active Protocol: Activity Type Activity Date Activity User E-Sign Co-Sign Detail Recorded Client Recorded Date Recorded By Document 10/15/19 12:20 DV [id number] 10/15/19 12:29 DV 10/15/19 12:20 Wound Center Nurse 2 [Procedure/Treatment] # 3- Lateral RLE -Time 12:21 -Correct Patient Yes -Correct Side, Site, Position Yes -Correct Procedure Yes -Procedure Performed Yes -Type of Procedure Debridement -Clinical Debridement Subcutaneous -Post Debridement Size (cm) - Length 0.5 -Post Debridement Size (cm) - Width 1.0 -Post Debridement Size (cm) - Depth 0.1 -Total Square Cm 0.50 -Wound/Ulcer Outcome Not Healed -Ulcer Cleansing Rinsed/ Irrigated with Saline -Foul Odor after Cleansing No -Bioengineered Tissue Yes -Type of bioengineered Tissue EPIFIX -Expiration Date 08/04/24 -Product Lot Number [id number] -Percent Used 100 -Bleeding Controlled with Pressure -Other HYDRO -Offloading No -Treatment Response Procedure Tolerated Well [See Physician Procedure note for Specifics] Pain Scale: 0-10 Numeric [Pain] -Is Patient Pain Free? Yes Psych/Mental Status: Normal Affect, Appropriate Debridement Note Post-Debridement Measurements/Treatment WC - Nurse 2 - General Ulcer CM Notes Start: 10/08/19 10:34 Freq: Status: Active Protocol: Activity Type Activity Date Activity User E-Sign Co-Sign Detail Recorded Client Recorded Date Recorded By Document 10/08/19 11:13 DV [id number] 10/08/19 11:24 DV Document 10/15/19 12:20 DV [id number] 10/15/19 12:29 DV 10/08/19 10/15/19 11:13 12:20 Wound Center Nurse 2 # 3- Lateral RLE -Time 11:13 12:21 -Correct Patient Yes Yes -Correct Side, Site, Position Yes Yes -Correct Procedure Yes Yes -Procedure Performed Yes Yes -Type of Procedure Debridement Debridement -Clinical Debridement Subcutaneous Subcutaneous -Post Debridement Size (cm) - Length 0.8 0.5 -Post Debridement Size (cm) - Width 1.1 1.0 -Post Debridement Size (cm) - Depth 0.1 0.1 -Total Square Cm 0.88 0.50 -Wound/Ulcer Outcome Not Healed Not Healed -Ulcer Cleansing Rinsed/ Rinsed/ Irrigated with Irrigated with Saline Saline -Foul Odor after Cleansing No No -Bioengineered Tissue Yes Yes -Type of bioengineered Tissue EPIFIX EPIFIX -Expiration Date 06/04/24 08/04/24 -Product Lot Number [id number] -Percent Used 100 100 -Saline Lot Number HYDRO -Topical Lidocaine (%) 5 -Bleeding Controlled with Pressure Pressure -Other HYDRO -Offloading No No -Treatment Response Procedure Procedure Tolerated Well Tolerated Well Pain Scale: 0-10 Numeric Is Patient Pain Free? Yes Yes Wound debrided: lateral Right LE Laterality: Right Type of Debridement: Excisional debridement Anesthesia Used: 4% Lidocaine Solution, 5% Lidocaine Gel Depth: Down to and including healthy tissue, in the subcutaneous layer Percentage of wound debrided: 100 Instrument Used: 5mm curette Tissue Removed: yellow slough, devitalized tissue Severity: Fat Layer Exposed Amount of bleeding with debridement: Mild Bleeding Controlled with: Compression and gauze Patient tolerated procedure well Assessment/Plan Active Problems Ulcer of right lower extremity with fat layer exposed (Chronic) Venous stasis ulcer of right lower leg with edema of right lower leg (Chronic) Assessment: 1. Venous stasis dermatitis of BLE, chronic. 2. Ulcers of RLE w ith fat layer exposed, chronic. 3. Venous stasis ulcer of RLE with edema of RLE, chronic (medial--healed; lateral--improving). 4. T2DM, insulin-dependent, chronic. 5. Rheumatoid arthritis, chronic. 6. CKD, stage III, chronic. 7. Dermatitis--resolved Plan: Debridement performed today in clinic as annotated above. Epi-fix #3 applied to lateral RLE ulcer, 100% of product was used. Covered with hydrogel and Adaptic touch, and reinforced with Steri-Strips. Covered with gauze and single Tubigrip's. Continue use of triamcinolone 0.025% lotion twice daily on MWF; continue using OTC moisturizers such as Aquaphor, Eucerin, or CeraVe on all other days. Patient instructed on avoiding topical steroid use on her RLE ulcer, as well as avoiding axilla, groin, face, or breasts. At home wound-care instructions: Keep dressing clean and dry. Remove gauze covering as needed due to drainage/contamination. Reinforce Steri-Strips as needed. Do not remove dressing; it will be removed at next visit. In regards to rash, keep affected areas of skin clean and dry as well, apply triamcinolone lotion as directed. Do not use any scented or dyed products on skin. Wash hands thoroughly after contact with triamcinolone lotion. Compression: Single Tubigrips applied to bilateral lower extremities. Off-loading: Keep feet elevated as much as possible, at or above waist level. Avoid prolonged standing or dangling of legs. Diet: Patient encouraged to increase protein and vitamin C intake while taking caution to avoid high carbohydrate and/or sugar intake. Discussed the importance of tight glycemic control. Labs/cultures/imaging: Labs done while at [facility] reveal the following: WBC 10.3, hemoglobin 9.3, neutrophils 83.1%, absolute neutrophils 8.6, creatinine 1.09, estimated GFR 52, glucose 163, A1c 9.1%. Patient's wound cultures were positive for the followin+ Staphylococcus aureus, rare Streptococcus agalactiae. Given small amount of purulent drainage, and increase in ulcer/sandy-ulcer pain, patient has completed doxycycline 100 mg p.o. twice daily x10 days. Arterial studies from 10/08/2019 showed the following: Right MONAE (DP and PT) non-calculable; left MONAE (DP and PT) non-calculable; right DBI 0.71; left DBI 0.74; there is evidence of arterial calcification at ankle level bilaterally; there is no evidence of significant arterial occlusive disease in the lower extremities bilaterally (see report for full details). Venous studies from 10/08/2019 showed the following:The deep veins of the lower extremities are bilaterally patent and compressible segmentally. Valvular competence appears intact within the proximal deep venous systems bilaterally. The right great saphenous vein appears competent above the knee, but incompetent below the knee. The left great saphenous vein appears segmentally competent. Pulsatile flow was noted in the deep venous system bilaterally, which may be indicative of elevated central venous pressure (i.e. congestive heart failure, tricuspid valve insufficiency, etc.). See report for full details. Follow-up: Return to clinic in 1 week for re-evaluation by provider. Return sooner or report to the emergency room should symptoms worsen, or new symptoms arise. Note: [employer] speech recognition premium card cancellation clerk software was used to create portions of this document. Sound-alike and misspelled words, as well as other premium card cancellation clerk errors may be contained in the documentation.
[2019-10-22 09:36] VITALS: BP 148/48; PULSE 70; RESP 16; TEMP 36.4; BMI 26.1
--- NOTE | 2019-10-22 12:15 | PCM.WC.PN ---
(1) Venous stasis ulcer of right lower leg with edema of right lower leg Status: Chronic Current Visit: Yes Code(s): I83.019 - Varicose veins of right lower extremity with ulcer of unspecified site; I83.891 - Varicose veins of right lower extremity with other complications; L97.919 - Non-pressure chronic ulcer of unspecified part of right lower leg with unspecified severity; R60.9 - Edema, unspecified (2) Ulcer of right lower extremity with fat layer exposed Status: Chronic Current Visit: Yes Code(s): L97.912 - Non-pressure chronic ulcer of unspecified part of right lower leg with fat layer exposed (3) Venous stasis dermatitis of both lower extremities Status: Chronic Current Visit: No Code(s): I87.2 - Venous insufficiency (chronic) (peripheral) (4) Dermatitis Status: Resolved Current Visit: No Code(s): L30.9 - Dermatitis, unspecified (5) CKD (chronic kidney disease), stage III Status: Chronic Current Visit: No Code(s): N18.3 - Chronic kidney disease, stage 3 (moderate) (6) Rheumatoid arthritis Status: Chronic Current Visit: No Code(s): M06.9 - Rheumatoid arthritis, unspecified (7) T2DM (type 2 diabetes mellitus) Status: Chronic Current Visit: Yes Qualifiers: Diabetes mellitus penitentiary insulin use: with 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 Garcia is a pleasant 74-year-old female who [facility] for evaluation and treatment of swelling and non-healing wounds of RLE. She has been evaluated and treated at [facility] in the past (~10/2018) by Dr. Gonzalez for managment of a non-healing LLE traumatic wound. The patient presents today with her . The patient reports that in June 2019 she developed redness and swelling of her BLE, resulting in blister-like lesions that turned into non-healing ulcers. This was initially managed by her PCP, Dr. Stewart. She was prescribed a course of Augmentin, which she completed approximately 2 months ago. She recalls improvement in erythema and swelling of bilateral lower extremities after completing the antibiotic, but denies complete resolution. Her PCP has also prescribed hydrocortisone lotion, which patient was using for several weeks on her bilateral lower extremities, with minimal improvement. Patient is also on diuretic therapy, managed by her PCP. Patient had left over Fibracol dressing from her previous wound healing center visits, which she has been applying to the ulcers of her right lower extremity. Despite these numerous treatment attempts, the erythema and swelling of patient's bilateral lower extremities, and ulcers of right lower extremity, persist. She notes itching and pain of bilateral lower extremities. She reports a temperature of ~100.0 ?F a few weeks ago, but this resolved spontaneously. She denies any increasing pain, erythema, or swelling from bilateral lower extremities. She reports a small, stable amount of thin, clear to yellow drainage from RLE ulcers. She denies any foul-smelling/purulent drainage. She denies any nausea, vomiting, persistent diarrhea. Patient has a PMH significant for T2 DM, RA, CKD stage III. Her lab work from Dr. Stewart's office was reviewed and was significant for the following: A1c 8.6% (07/29/2019), creatinine 1.41, BUN 26, estimated GFR 39, WBC 5.6, hemoglobin 10.8, albumin 3.3, glucose 412, (08/13/2019). See patient's chart for full details. Progress of Wound: Lateral RLE ulcer has improved in size and appearance with use of Epifix; medial RLE ulcer remains healed. The patient denies any fever, chills, nausea, vomiting, or diarrhea. Denies any signs of infection, including increasing pain, redness, swelling, or drainage from affected area. Patient's dermatitis has resolved on bilateral legs, arms, and back. Patient denies any itching of skin at this time. She completed 1 week of triamcinolone 0.5% cream and ~ 5 days of triamcinolone 0.5% ointment. She is now using triamcinolone 0.025% lotion BID x 3 days per week for maintenance. Patient completed vascular studies 10/08/2019 before appointment. Arterial studies from 10/08/2019 showed the following: Right MONAE (DP and PT) non-calculable; left MONAE (DP and PT) non-calculable; right DBI 0.71; left DBI 0.74; there is evidence of arterial calcification at ankle level bilaterally; there is no evidence of significant arterial occlusive disease in the lower extremities bilaterally (see report for full details). Venous studies from 10/08/2019 showed the following:The deep veins of the lower extremities are bilaterally patent and compressible segmentally. Valvular competence appears intact within the proximal deep venous systems bilaterally. The right great saphenous vein appears competent above the knee, but incompetent below the knee. The left great saphenous vein appears segmentally competent. Pulsatile flow was noted in the deep venous system bilaterally, which may be indicative of elevated central venous pressure (i.e. congestive heart failure, tricuspid valve insufficiency, etc.). See report for full details. A referral was made to Vascular for further assessment of PVD and discussion of treatment options. - Physical Exam Vital Signs Temp Pulse Resp BP 97.6 F L 70 16 148/48 H 10/22/19 09:36 10/22/19 09:36 10/22/19 09:36 10/22/19 09:36 General: Alert, Cooperative, No apparent distress HEENT: Atraumatic, EOMI, Normocephalic Oral: Moist Mucosa Neck: Supple, No JVD, Trachea Midline Lungs: Normal air movement Extremities: No clubbing, No cyanosis, Capillary Refill Less than 3 Seconds, Diminished Peripheral Pulses, Edema - 2+ pitting edema bilateral lower extremities. Skin of bilateral lower extremities is smooth, shiny, and without hair below the knee., Tenderness - Tenderness to palpation of bilateral lower extremities. Skin: No rashes, Ulcer/ Wound - Venous stasis ulcer of lateral RLE with subcutaneous layer exposed. No tunneling, undermining, or probing to bone. Small amount of slough present in ulcer bed. No purulent or foul-smelling drainage. Generalized erythema and edema of right lower extremity is resolved. No increased warmth in RLE versus LLE. Wound Measurements and Assessment WC - Nurse 1 - General Ulcer Measurement Start: 10/08/19 10:34 Freq: Status: Active Protocol: Activity Type Activity Date Activity User E-Sign Co-Sign Detail Recorded Client Recorded Date Recorded By Document 10/22/19 09:36 MW [id number] 10/22/19 09:42 MW 10/22/19 09:36 Wound Center Nurse 1 [Ulcer Assessment] # 3- Lateral RLE -Combined with other wound No -Current Size (cm) - Length 0.1 -Current Size (cm) - Width 0.1 -Current Size (cm) - Depth 0.1 -Total Square Cm 0.01 -Photo Taken No -Epithelialization None Present -Tunneling No -Undermining/Tunneling No -Circular Undermining No -Exudate Amt None Present -Wound Margin Flat & Intact -Granulation Amt None Present (0 %) -Granulation Quality N/A -Slough/Fibrin Yes -Necrosis Amt Large (67-100%) -Necrotic Tissue Type Adherent Slough -Structure Exposed N/A -Texture (Sandy-wound Skin Appearance) Assessed, Localized Edema -Moisture (Sandy-wound Skin Appearance Assessed,Dry/ ) Scaly -Color (Sandy-wound Skin Appearance) No Abnormality, Assessed -Temperature (Sandy-wound Skin No Abnormality Appearance) (Pt Warm) -Tenderness on Palpation (Sandy-wound No Skin Appearance) -Ulcer Cleansing soap and water -Foul Odor after Cleansing No -Anesthetic Used 4% Lidocaine Solution [Edema Assessment] -Lower Limb Edema Present Yes -Right Calf (cm) 39.2 -Right Ankle (cm) 21.0 WC - Nurse 2 - General Ulcer CM Notes Start: 10/08/19 10:34 Freq: Status: Active Protocol: Activity Type Activity Date Activity User E-Sign Co-Sign Detail Recorded Client Recorded Date Recorded By Document 10/22/19 09:56 DV [id number] 10/22/19 10:08 DV 10/22/19 09:56 Wound Center Nurse 2 [Procedure/Treatment] # 3- Lateral RLE -Time 09:57 -Correct Patient Yes -Correct Side, Site, Position Yes -Correct Procedure Yes -Procedure Performed Yes -Type of Procedure Debridement -Clinical Debridement Subcutaneous -Post Debridement Size (cm) - Length 0.6 -Post Debridement Size (cm) - Width 0.8 -Post Debridement Size (cm) - Depth 0.1 -Total Square Cm 0.48 -Wound/Ulcer Outcome Not Healed -Ulcer Cleansing Rinsed/ Irrigated with Saline -Foul Odor after Cleansing No -Bioengineered Tissue Yes -Type of bioengineered Tissue EPIFIX -Expiration Date 08/04/24 -Product Lot Number [id number] -Percent Used 100 -Saline Lot Number HYDRO -Topical Lidocaine (%) 5 -Bleeding Controlled with Pressure -Offloading No -Treatment Response Procedure Tolerated Well [See Physician Procedure note for Specifics] Pain Scale: 0-10 Numeric [Pain] -Is Patient Pain Free? Yes Musculoskeletal: Tenderness - Tenderness to palpation/manipulation of bilateral lower extremities, and with debridement of RLE ulcer Psych/Mental Status: Normal Affect, Appropriate Debridement Note Post-Debridement Measurements/Treatment WC - Nurse 2 - General Ulcer CM Notes Start: 10/08/19 10:34 Freq: Status: Active Protocol: Activity Type Activity Date Activity User E-Sign Co-Sign Detail Recorded Client Recorded Date Recorded By Document 10/08/19 11:13 DV [id number] 10/08/19 11:24 DV Document 10/15/19 12:20 DV [id number] 10/15/19 12:29 DV Document 10/22/19 09:56 DV [id number] 10/22/19 10:08 DV 10/08/19 10/15/19 10/22/19 11:13 12:20 09:56 Wound Center Nurse 2 # 3- Lateral RLE -Time 11:13 12:21 09:57 -Correct Patient Yes Yes Yes -Correct Side, Site, Position Yes Yes Yes -Correct Procedure Yes Yes Yes -Procedure Performed Yes Yes Yes -Type of Procedure Debridement Debridement Debridement -Clinical Debridement Subcutaneous Subcutaneous Subcutaneous -Post Debridement Size (cm) - Length 0.8 0.5 0.6 -Post Debridement Size (cm) - Width 1.1 1.0 0.8 -Post Debridement Size (cm) - Depth 0.1 0.1 0.1 -Total Square Cm 0.88 0.50 0.48 -Wound/Ulcer Outcome Not Healed Not Healed Not Healed -Ulcer Cleansing Rinsed/ Rinsed/ Rinsed/ Irrigated with Irrigated with Irrigated with Saline Saline Saline -Foul Odor after Cleansing No No No -Bioengineered Tissue Yes Yes Yes -Type of bioengineered Tissue EPIFIX EPIFIX EPIFIX -Expiration Date 06/04/24 08/04/24 08/04/24 -Product Lot Number [id number] -Percent Used 100 100 100 -Saline Lot Number HYDRO HYDRO -Topical Lidocaine (%) 5 5 -Bleeding Controlled with Pressure Pressure Pressure -Other HYDRO -Offloading No No No -Treatment Response Procedure Procedure Procedure Tolerated Well Tolerated Well Tolerated Well Pain Scale: 0-10 Numeric Is Patient Pain Free? Yes Yes Yes Wound debrided: Lateral RLE Laterality: Right Type of Debridement: Excisional debridement Anesthesia Used: 4% Lidocaine Solution Depth: in the subcutaneous layer Percentage of wound debrided: 100 Instrument Used: 5mm curette Tissue Removed: Slough and devitalized tissue Severity: Fat Layer Exposed Amount of bleeding with debridement: Mild Bleeding Controlled with: Pressure Patient tolerated procedure well Assessment/Plan Active Problems Ulcer of right lower extremity with fat layer exposed (Chronic) Venous stasis ulcer of right lower leg with edema of right lower leg (Chronic) T2DM (type 2 diabetes mellitus) (Chronic) Assessment: 1. Venous stasis dermatitis of BLE, chronic. 2. Ulcers of RLE with fat layer exposed, chronic. 3. Venous stasis ulcer of RLE with edema of RLE, chronic (medial--healed; lateral--improving). 4. T2DM, insulin-dependent, chronic. 5. Rheumatoid arthritis, chronic. 6. CKD, stage III, chronic. 7. Dermatitis--resolved Plan: Debridement performed today in clinic as annotated above. Epi-fix #4 applied to lateral RLE ulcer, 100% of product was used. Covered with hydrogel and Adaptic touch, and reinforced with Steri-Strips. Covered with gauze and single Tubigrip. May decrease use of triamcinolone lotion to PRN, but continue use of [id number] moisturizers daily (Aquaphor, Eucerin, or CeraVe). At home wound-care instructions: Keep dressing clean and dry. Remove gauze covering as needed due to drainage/contamination. Reinforce Steri-Strips as needed. Do not remove dressing; it will be removed at next visit. In regards to rash, keep affected areas of skin clean and dry as well. Do not use any scented or dyed products on skin. Wash hands thoroughly after contact with triamcinolone lotion. Compression: Single Tubigrips applied to right lower extremity. Off-loading: Keep feet elevated as much as possible, at or above waist level. Avoid prolonged standing or dangling of legs. Diet: Patient encouraged to increase protein and vitamin C intake while taking caution to avoid high carbohydrate and/or sugar intake. Discussed the importance of tight glycemic control. Labs/cultures/imaging: Labs done while at [facility] reveal the following: WBC 10.3, hemoglobin 9.3, neutrophils 83.1%, absolute neutrophils 8.6, creatinine 1.09, estimated GFR 52, glucose 163, A1c 9.1%. Patient's wound cultures were positive for the followin+ Staphylococcus aureus, rare Streptococcus agalactiae. Given small amount of purulent drainage, and increase in ulcer/sandy-ulcer pain, patient has completed doxycycline 100 mg p.o. twice daily x10 days. Arterial studies from 10/08/2019 showed the following: Right MONAE (DP and PT) non-calculable; left MONAE (DP and PT) non-calculable; right DBI 0.71; left DBI 0.74; there is evidence of arterial calcification at ankle level bilaterally; there is no evidence of significant arterial occlusive disease in the lower extremities bilaterally (see report for full details). Venous studies from 10/08/2019 showed the following:The deep veins of the lower extremities are bilaterally patent and compressible segmentally. Valvular competence appears intact within the proximal deep venous systems bilaterally. The right great saphenous vein appears competent above the knee, but incompetent below the knee. The left great saphenous vein appears segmentally competent. Pulsatile flow was noted in the deep venous system bilaterally, which may be indicative of elevated central venous pressure (i.e. congestive heart failure, tricuspid valve insufficiency, etc.). See report for full details. Referral made to Vascular. Follow-up: Return to clinic in 1 week for re-evaluation by provider. Return sooner or report to the emergency room should symptoms worsen, or new symptoms arise. Note: [employer] speech recognition farm equipment operator software was used to create portions of this document. Sound-alike and misspelled words, as well as other farm equipment operator errors may be contained in the documentation. [id number]: [id number] Skin sub graft trnk/arm/leg
[2019-10-29 09:19] VITALS: BP 149/66; PULSE 63; RESP 18; TEMP 36.2; BMI 26.1
--- NOTE | 2019-10-29 11:16 | PN.PCM_ITS ---
(1) Ulcer of right lower extremity with fat layer exposed Status: Resolved Current Visit: Yes Code(s): L97.912 - Non-pressure chronic ulcer of unspecified part of right lower leg with fat layer exposed (2) Edema of both lower extremities Status: Chronic Current Visit: Yes Code(s): R60.0 - Localized edema (3) Venous stasis dermatitis of both lower extremities Status: Chronic Current Visit: Yes Code(s): I87.2 - Venous insufficiency (chronic) (peripheral) (4) T2DM (type 2 diabetes mellitus) Status: Chronic Current Visit: Yes Qualifiers: Diabetes mellitus superintendent marine oil terminal insulin use: with intermediate use Diabetes mellitus complication status: with skin complications Diabetes mellitus complication detail: with other skin ulcer Qualified Code(s): E11.622 - Type 2 diabetes mellitus with other skin ulcer; Z79.4 - detention (current) use of insulin Code(s): E11.9 - Type 2 diabetes mellitus without complications Type of Wound Date of Service: 10/29/19 Chief Complaint: swelling and non-healing wounds of right lower extremity History of Wound: Ms. Garcia is a pleasant 74-year-old female who [facility] for evaluation and treatment of swelling and non-healing wounds of RLE. She has been evaluated and treated [facility] in the past (~10/2018) by Dr. Gonzalez for managment of a non- healing LLE traumatic wound. The patient presents today with her . The patient reports that in June 2019 she developed redness and swelling of her BLE, resulting in blister-like lesions that turned into non-healing ulcers. This was initially managed by her PCP, Dr. Stewart. She was prescribed a course of Augmentin, which she completed approximately 2 months ago. She recalls improvement in erythema and swelling of bilateral lower extremities after comp leting the antibiotic, but denies complete resolution. Her PCP has also prescribed hydrocortisone lotion, which patient was using for several weeks on her bilateral lower extremities, with minimal improvement. Patient is also on diuretic therapy, managed by her PCP. Patient had left over Fibracol dressing from her previous wound healing center visits, which she has been applying to the ulcers of her right lower extremity. Despite these numerous treatment attempts, the erythema and swelling of patient's bilateral lower extremities, and ulcers of right lower extremity, persist. She notes itching and pain of bilateral lower extremities. She reports a temperature of ~100.0 ?F a few weeks ago, but this resolved spontaneously. She denies any increasing pain, erythema, or swelling from bilateral lower extremities. She reports a small, stable amount of thin, clear to yellow drainage from RLE ulcers. She denies any foul- smelling/purulent drainage. She denies any nausea, vomiting, persistent diarrhea. Patient has a PMH significant for T2 DM, RA, CKD stage III. Her lab work from Dr. Stewart's office was reviewed and was significant for the following: A1c 8.6% (07/29/2019), creatinine 1.41, BUN 26, estimated GFR 39, WBC 5.6, hemoglobin 10.8, albumin 3.3, glucose 412, (08/13/2019). See patient's chart for full details. Progress of Wound: Lateral RLE ulcer is healed today. Medial RLE ulcer remains healed. She has a scratch on her right lower leg that is new and we will monitor closely. Will have her place collagen hydrogel on the area daily and cover with gauze. She continues to have significant amount of edema (+3-+4 pitting) bilateral lower legs. She has been using tubigrip for compression The patient denies any fever, chills, nausea, vomiting, or diarrhea. Denies any signs of infection, including increasing pain, redness, swelling, or drainage from affected area. Patient's dermatitis has resolved on bilateral legs, arms, and back. Patient denies any itching of skin at this time. She completed 1 week of triamcinolone 0.5% cream and ~ 5 days of triamcinolone 0.5% ointment. She is now using triamcinolone 0.025% lotion BID x 3 days per week for maintenance. - Physical Exam Vital Signs Temp Pulse Resp BP 97.1 F L 63 18 149/66 H 10/29/19 09:19 10/29/19 09:19 10/29/19 09:19 10/29/19 09:19 General: Alert, Oriented x3, Cooperative HEENT: Atraumatic Lungs: Normal air movement Cardiovascular: Regular rate Abdomen: Obese Extremities: Capillary Refill Less than 3 Seconds, Diminished Peripheral Pulses, Edema - +3 pitting edema bilaterally Skin: Ulcer/ Wound - right lower leg ulcer is healed after 4 applications of Epifix. She has a new scratch from her cane on her left lower leg, will monitor it closely. Wound Measurements and Assessment - Nurse 1 - General Ulcer Measurement Start: 10/08/19 10:34 Freq: Status: Active Protocol: Activity Type Activity Date Activity User E-Sign Co-Sign Detail Recorded Client Recorded Date Recorded By Document 10/29/19 09:19 RB [id number] 10/29/19 09:24 RB 10/29/19 09:19 Wound Center Nurse 1 [Ulcer Assessment] # 3- Lateral RLE -Combined with other wound No -Current Size (cm) - Length 0.1 -Current Size (cm) - Width 0.1 -Current Size (cm) - Depth 0.1 -Total Square Cm 0.01 -Tunneling No -Undermining/Tunneling No -Circular Undermining No -Exudate Amt Small -Exudate Type Serosanguineous -Wound Margin Flat & Intact -Granulation Amt Medium (34-66%) -Granulation Quality [place] -Slough/Fibrin Yes -Necrosis Amt Small (1-33%) -Necrotic Tissue Type Adherent Slough -Structure Exposed N/A -Texture (Sandy-wound Skin Appearance) Assessed -Moisture (Sandy-wound Skin Appearance Assessed,Dry/ ) Scaly -Color (Sandy-wound Skin Appearance) Assessed -Temperature (Sandy-wound Skin No Abnormality Appearance) (Pt Warm) -Tenderness on Palpation (Sandy-wound No Skin Appearance) -Ulcer Cleansing Wound Cleanser -Foul Odor after Cleansing No -Anesthetic Used 4% Lidocaine Solution - Nurse 2 - General Ulcer CM Notes Start: 10/08/19 10:34 Freq: Status: Active Protocol: Activity Type Activity Date Activity User E-Sign Co-Sign Detail Recorded Client Recorded Date Recorded By Document 10/29/19 09:52 DV [id number] 10/29/19 09:57 DV 10/29/19 09:52 Wound Center Nurse 2 [Procedure/Treatment] -Time 09:56 -Correct Patient Yes -Correct Side, Site, Position Yes -Correct Procedure No -Procedure Performed No -Post Debridement Size (cm) - Length 0 -Post Debridement Size (cm) - Width 0 -Post Debridement Size (cm) - Depth 0 -Total Square Cm 0 -Wound/Ulcer Outcome Healed- Epithelialized [See Physician Procedure note for Specifics] Pain Scale: 0-10 Numeric [Pain] -Is Patient Pain Free? Yes Musculoskeletal: No Tenderness to Palpation of Joints or Extremities Neurological: Neuro grossly intact Psych/Mental Status: Normal Affect, Appropriate Debridement Note Post-Debridement Measurements/Treatment WC - Nurse 2 - General Ulcer CM Notes Start: 10/08/19 10:34 Freq: Status: Active Protocol: Activity Type Activity Date Activity User E-Sign Co-Sign Detail Recorded Client Recorded Date Recorded By Document 10/08/19 11:13 DV [id number] 10/08/19 11:24 DV Document 10/15/19 12:20 DV [id number] 10/15/19 12:29 DV Document 10/22/19 09:56 DV [id number] 10/22/19 10:08 DV Document 10/29/19 09:52 DV [id number] 10/29/19 09:57 DV 10/08/19 10/15/19 10/22/19 11:13 12:20 09:56 Wound Center Nurse 2 # 3- Lateral RLE -Time 11:13 12:21 09:57 -Correct Patient Yes Yes Yes -Correct Side, Site, Position Yes Yes Yes -Correct Procedure Yes Yes Yes -Procedure Performed Yes Yes Yes -Type of Procedure Debridement Debridement Debridement -Clinical Debridement Subcutaneous Subcutaneous Subcutaneous -Post Debridement Size (cm) - Length 0.8 0.5 0.6 -Post Debridement Size (cm) - Width 1.1 1.0 0.8 -Post Debridement Size (cm) - Depth 0.1 0.1 0.1 -Total Square Cm 0.88 0.50 0.48 -Wound/Ulcer Outcome Not Healed Not Healed Not Healed -Ulcer Cleansing Rinsed/ Rinsed/ Rinsed/ Irrigated with Irrigated with Irrigated with Saline Saline Saline -Foul Odor after Cleansing No No No -Bioengineered Tissue Yes Yes Yes -Type of bioengineered Tissue EPIFIX EPIFIX EPIFIX -Expiration Date 06/04/24 08/04/24 08/04/24 -Product Lot Number [id number] -Percent Used 100 100 100 -Saline Lot Number HYDRO HYDRO -Topical Lidocaine (%) 5 5 -Bleeding Controlled with Pressure Pressure Pressure -Other HYDRO -Offloading No No No -Treatment Response Procedure Procedure Procedure Tolerated Well Tolerated Well Tolerated Well Pain Scale: 0-10 Numeric Is Patient Pain Free? Yes Yes Yes 10/29/19 09:52 Wound Center Nurse 2 # 3- Lateral RLE -Time 09:56 -Correct Patient Yes -Correct Side, Site, Position Yes -Correct Procedure No -Procedure Performed No -Type of Procedure -Clinical Debridement -Post Debridement Size (cm) - Length 0 -Post Debridement Size (cm) - Width 0 -Post Debridement Size (cm) - Depth 0 -Total Square Cm 0 -Wound/Ulcer Outcome Healed- Epithelialized -Ulcer Cleansing -Foul Odor after Cleansing -Bioengineered Tissue -Type of bioengineered Tissue -Expiration Date -Product Lot Number -Percent Used -Saline Lot Number -Topical Lidocaine (%) -Bleeding Controlled with -Other -Offloading -Treatment Response Pain Scale: 0-10 Numeric Is Patient Pain Free? Yes No debridement was completed today Assessment/Plan Active Problems Venous stasis dermatitis of both lower extremities (Chronic) Venous stasis ulcer of right lower leg with edema of right lower leg (Chronic) T2DM (type 2 diabetes mellitus) (Chronic) Edema of both lower extremities (Chronic) Assessment: 1. Venous stasis dermatitis of BLE, chronic. 2. Ulcers of RLE with fat layer exposed, chronic. 3. Venous stasis ulcer of RLE with edema of RLE, chronic (medial--healed; lateral--improving). 4. T2DM, insulin-dependent, chronic. 5. Rheumatoid arthritis, chronic. 6. CKD, stage III, chronic. 7. Dermatitis--resolved Plan: Patient is healed on her right lateral lower leg ulcer after 4 treatment of Epifix. She has a new scratch on her right lower leg that we will monitor closely. We will have her place collagen hydrogel on it daily and cover it with gauze before placing her Surepress wrap on for her compression. Instructed her and her son how to place the compression wrap. She continues to have significant pitting edema bilateral lower extremities. We did discuss possibly getting Juxtilite compression stockings after we get some of the swelling to go down in her legs. Off-loading: Keep feet elevated as much as possible, at or above waist level. Avoid prolonged standing or dangling of legs. Diet: Patient encouraged to increase protein and vitamin C intake while taking caution to avoid high carbohydrate and/or sugar intake. Discussed the importance of tight glycemic control. Labs/cultures/imaging: Labs done while at [facility] reveal the following: WBC 10.3, hemoglobin 9.3, neutrophils 83.1%, absolute neutrophils 8.6, creatinine 1.09, estimated GFR 52, glucose 163, A1c 9.1%. Patient's wound cultures were positive for the followin+ Staphylococcus aureus, rare Streptococcus agalactiae. Given small amount of purulent drainage, and increase in ulcer/sandy-ulcer pain, patient has completed doxycycline 100 mg p.o. twice daily x10 days. Arterial studies from 10/08/2019 showed the following: Right MONAE (DP and PT) non-calculable; left MONAE (DP and PT) non-calculable; right DBI 0.71; left DBI 0.74; there is evidence of arterial calcification at ankle level bilaterally; there is no evidence of significant arterial occlusive disease in the lower extremities bilaterally (see report for full details). Venous studies from 10/08/2019 showed the following:The deep veins of the lower extremities are bilaterally patent and compressible segmentally. Valvular competence appears intact within the proximal deep venous systems bilaterally. The right great saphenous vein appears competent above the knee, but incompetent below the knee. The left great saphenous vein appears segmentally competent. Pulsatile flow was noted in the deep venous system bilaterally, which may be indicative of elevated central venous pressure (i.e. congestive heart failure, tricuspid valve insufficiency, etc.). See report for full details. Referral made to Vascular. Follow-up: Return to clinic in 1 week for re-evaluation by provider. Return sooner or report to the emergency room should symptoms worsen, or new symptoms arise. Office Visits / Consults: [id number] OV L3 Est
== END 2019-11-02 23:59 ==
LOC: WC 09:00
PROVIDERS: PCP Family Medicine; Referring Provider Nurse Practitioner Family; Visit Provider Nurse Practitioner Family
DX: I83.018 Varicose veins of right lower extremity with ulcer other part of lower leg (principal); L97.812 Non-pressure chronic ulcer of other part of right lower leg with fat layer exposed; M06.9 Rheumatoid arthritis, unspecified; N18.3 Chronic kidney disease, stage 3 (moderate); E11.22 Type 2 diabetes mellitus with diabetic chronic kidney disease; L30.9 Dermatitis, unspecified; R53.83 Other fatigue; R47.81 Slurred speech; R53.1 Weakness; Z79.4 Long term (current) use of insulin; S80.811A Abrasion, right lower leg, initial encounter; X58.XXXA Exposure to other specified factors, initial encounter; M79.89 Other specified soft tissue disorders; R52 Pain, unspecified; I73.9 Peripheral vascular disease, unspecified
CPT/HCPCS: 15271; 82962; 93923; 93970; 99213; Q4186; G0463

== ENCOUNTER 2019-11-05 10:08 | Outpatient (RCR) | payer MEDICARE, OTHER, SELFPAY ==
[2019-11-03 00:45] VITALS: BP 149/66; PULSE 63; RESP 18; TEMP 36.2
[2019-11-05 10:20] VITALS: BP 193/64; PULSE 53; RESP 22; TEMP 36.9; BMI 26.1
--- NOTE | 2019-11-05 11:49 | PCM.WC.PN ---
(1) Edema of both lower extremities Status: Chronic Current Visit: Yes Code(s): R60.0 - Localized edema (2) Venous stasis dermatitis of both lower extremities Status: Chronic Current Visit: Yes Code(s): I87.2 - Venous insufficiency (chronic) (peripheral) (3) T2DM (type 2 diabetes mellitus) Status: Chronic Current Visit: Yes Qualifiers: Diabetes mellitus termite treater helper insulin use: with termite treater helper use Diabetes mellitus complication status: with skin complications Diabetes mellitus complication detail: with other skin ulcer Qualified Code(s): E11.622 - Type 2 diabetes mellitus with other skin ulcer; Z79.4 - half-way (current) use of insulin Code(s): E11.9 - Type 2 diabetes mellitus without complications Type of Wound Date of Service: 11/05/19 Chief Complaint: swelling and non-healing wounds of right lower extremity History of Wound: Ms. Garcia is a pleasant 74-year-old female who [facility] for evaluation and treatment of swelling and non-healing wounds of RLE. She has been evaluated and treated [facility] in the past (~10/2018) by Dr. Gonzalez for managment of a non-healing LLE traumatic wound. The patient presents today with her . The patient reports that in June 2019 she developed redness and swelling of her BLE, resulting in blister-like lesions that turned into non-healing ulcers. This was initially managed by her PCP, Dr. Stewart. She was prescribed a course of Augmentin, which she completed approximately 2 months ago. She recalls improvement in erythema and swelling of bilateral lower extremities after completing the antibiotic, but denies complete resolution. Her PCP has also prescribed hydrocortisone lotion, which patient was using for several weeks on her bilateral lower extremities, with minimal improvement. Patient is also on diuretic therapy, managed by her PCP. Patient had left over Fibracol dressing from her previous wound healing center visits, which she has been applying to the ulcers of her right lower extremity. Despite these numerous treatment attempts, the erythema and swelling of patient's bilateral lower extremities, and ulcers of right lower extremity, persist. She notes itching and pain of bilateral lower extremities. She reports a temperature of ~100.0 ?F a few weeks ago, but this resolved spontaneously. She denies any increasing pain, erythema, or swelling from bilateral lower extremities. She reports a small, stable amount of thin, clear to yellow drainage from RLE ulcers. She denies any foul-smelling/purulent drainage. She denies any nausea, vomiting, persistent diarrhea. Patient has a PMH significant for T2 DM, RA, CKD stage III. Her lab work from Dr. Stewart's office was reviewed and was significant for the following: A1c 8.6% (07/29/2019), creatinine 1.41, BUN 26, estimated GFR 39, WBC 5.6, hemoglobin 10.8, albumin 3.3, glucose 412, (08/13/2019). See patient's chart for full details. Progress of Wound: Lateral RLE ulcer and medial RLE ulcer remains healed. She has a scratch on her right lower leg that is now healed today. She continues to have significant amount of edema (+3-+4 pitting) bilateral lower legs. She has been using Surepress this week for compression that is helping with the edema. The patient denies any fever, chills, nausea, vomiting, or diarrhea. Denies any signs of infection, including increasing pain, redness, swelling, or drainage from affected area. Patient's dermatitis has resolved on bilateral legs, arms, and back. Patient denies any itching of skin at this time. She completed 1 week of triamcinolone 0.5% cream and ~ 5 days of triamcinolone 0.5% ointment. She is now using triamcinolone 0.025% lotion BID x 3 days per week for maintenance. - Physical Exam Vital Signs Temp Pulse Resp BP 98.4 F 53 L 22 H 193/64 H 11/05/19 10:20 11/05/19 10:20 11/05/19 10:20 11/05/19 10:20 General: Alert, Oriented x3, Cooperative HEENT: Atraumatic Oral: Moist Mucosa Lungs: Normal air movement Cardiovascular: Regular rate Extremities: Edema - +1-+2 edema. Much improved with the surepress compression., Tenderness - She has been experiencing right hip pain since she go up this morning when she felt a pop. Skin: Ulcer/ Wound - remains healed Wound Measurements and Assessment WC - Nurse 1 - General Ulcer Measurement Start: 11/05/19 10:20 Freq: Status: Active Protocol: Activity Type Activity Date Activity User E-Sign Co-Sign Detail Recorded Client Recorded Date Recorded By Document 11/05/19 10:20 DL [id number] 11/05/19 10:26 DL 11/05/19 10:20 Wound Center Nurse 1 [Edema Assessment] -Right Calf (cm) 36 -Right Ankle (cm) 24.3 Musculoskeletal: Tenderness - right hip Neurological: Neuro grossly intact Psych/Mental Status: Normal Affect, Appropriate Debridement Note No debridement was completed today Assessment/Plan Active Problems Venous stasis dermatitis of both lower extremities (Chronic) T2DM (type 2 diabetes mellitus) (Chronic) Rheumatoid arthritis (Chronic) CKD (chronic kidney disease), stage III (Chronic) Edema of both lower extremities (Chronic) Fracture of femur, subcapital, right, closed (Acute) Assessment: 1. Venous stasis dermatitis of BLE, chronic. 2. Ulcers of RLE with fat layer exposed, chronic. 3. Venous stasis ulcer of RLE with edema of RLE, chronic (medial--healed; lateral--improving). 4. T2DM, insulin-dependent, chronic. 5. Rheumatoid arthritis, chronic. 6. CKD, stage III, chronic. 7. Dermatitis--resolved Plan: Patient is healed on her right lateral lower leg ulcer after 4 treatment of Epifix. She had a new scratch on her right lower leg that is healed this week. Compress is Surepress wraps bilaterally that have have helped her edema. We did discuss possibly getting Juxtilite compression stockings after we get some of the swelling to go down in her legs. She felt a pop in her right hip this morning and is having significant amount of pain, she is going to go the the ED for evaluation now. Off-loading: Keep feet elevated as much as possible, at or above waist level. Avoid prolonged standing or dangling of legs. Diet: Patient encouraged to increase protein and vitamin C intake while taking caution to avoid high carbohydrate and/or sugar intake. Discussed the importance of tight glycemic control. Labs/cultures/imaging: Labs done while at [facility] reveal the following: WBC 10.3, hemoglobin 9.3, neutrophils 83.1%, absolute neutrophils 8.6, creatinine 1.09, estimated GFR 52, glucose 163, A1c 9.1%. Patient's wound cultures were positive for the followin+ Staphylococcus aureus, rare Streptococcus agalactiae. Given small amount of purulent drainage, and increase in ulcer/sandy-ulcer pain, patient has completed doxycycline 100 mg p.o. twice daily x10 days. Arterial studies from 10/08/2019 showed the following: Right MONAE (DP and PT) non-calculable; left MONAE (DP and PT) non-calculable; right DBI 0.71; left DBI 0.74; there is evidence of arterial calcification at ankle level bilaterally; there is no evidence of significant arterial occlusive disease in the lower extremities bilaterally (see report for full details). Venous studies from 10/08/2019 showed the following:The deep veins of the lower extremities are bilaterally patent and compressible segmentally. Valvular competence appears intact within the proximal deep venous systems bilaterally. The right great saphenous vein appears competent above the knee, but incompetent below the knee. The left great saphenous vein appears segmentally competent. Pulsatile flow was noted in the deep venous system bilaterally, which may be indicative of elevated central venous pressure (i.e. congestive heart failure, tricuspid valve insufficiency, etc.). See report for full details. Referral made to Vascular. Follow-up: Return to clinic in 1 week for re-evaluation by provider. Return sooner or report to the emergency room should symptoms worsen, or new symptoms arise. Office Visits / Consults: [id number] OV L3 Est
== END 2019-12-02 23:59 ==
LOC: WC 10:08
PROVIDERS: PCP Family Medicine; Referring Provider Nurse Practitioner Family; Visit Provider Nurse Practitioner Family
DX: Z09 Encounter for follow-up examination after completed treatment for conditions other than malignant neoplasm (principal); M06.9 Rheumatoid arthritis, unspecified; N18.3 Chronic kidney disease, stage 3 (moderate); E11.22 Type 2 diabetes mellitus with diabetic chronic kidney disease; R60.0 Localized edema; I87.2 Venous insufficiency (chronic) (peripheral); Z79.4 Long term (current) use of insulin
CPT/HCPCS: 99212; G0463

== ENCOUNTER 2019-11-05 11:12 | Inpatient (IN) | payer MEDICARE, OTHER, SELFPAY ==
[2019-11-05] VITALS (8 sets, daily range): BP systolic 124–208; BP diastolic 51–79; PULSE 55–76; RESP 14–17; TEMP 36–36.6; O2SAT 95–99; BMI 26.1; BMI 32.7; BMI 32.3; BMI 32.4
--- NOTE | 2019-11-05 | HIP_PTH ---
PATIENT: CASANDRA JONES LOC: [facility] U#:[id number] AGE/SX: 74/F ROOM: [facility] RE11/05/[address]: Dr. Leonard Clinton DO : 1945 BED: 1 DIS: 11/08/2019 SPEC #: [id number] RECD: 11/08/19 12:34 STATUS: SOUSirena REQ #: [id number] RAMIREZ: 11/05/19 00:[address]: Sourav Karimi DEPT: SURGICAL PATHOLOGY RECD BY: Valerio Lowery ENTERED: 11/08/19 12:34 SP TYPE: TOTAL HIP OTHR DR: MD Dr. Leonard Lemos DO Dr. Mark Tereletsky, DO Tissues: Hip, NOS Procedures: Decalcification bone/plaque Surgery Specimen Level IV Comments: @ Ordering doctor for DEC edited from to [email or web address] Aguilar by LOKESH at 11/08/19 1250 @ Ordering doctor for SUIV edited from to DR.[email or web address] Aguilar by LOKESH at 11/08/19 1250 @ Submitting doctor edited from to DR.[email or web address] Lauren CAMPA at 11/08/19 1250 HEADER OPERATION: Hemiarthroplasty right hip, cemented PRE-OP DIAGNOSIS: Right subcapital hip fracture TISSUE SUBMITTED: Right femoral head bone and soft tissue MICROSCOPIC DIAGNOSIS Right femoral head, bone and soft tissue, hemiarthroplasty: Femoral head and detached pieces of bone with focal area of hemorrhage, clinically right subcapital hip fracture. Fragments of fibroadipose tissue, fibroconnective tissue and synovial tissue. HEIDE:melodie 11/11/19 MICROSCOPIC DESCRIPTION Slides are reviewed. GROSS DESCRIPTION Received is one container designated bone and soft tissue, right femoral head. The specimen consists of a bridges femoral head with portion of femoral neck. The femoral head measures 4.5 x 4 x 3.5 cm and the portion of attached femoral neck measures up to 1.5 cm in length. Also present in the specimen container are multiple detached pieces of bone measuring in aggregate 5.5 x 4.5 x 2.5 cm. The articular surface of the femoral head displays prominent osteophyte formation, eburnation and bone erosion. The resection margin is irregular and hemorrhagic. Also attached to the pieces of bone and femoral head is a small amount of soft tissue measuring in aggregate 2 x 2 x 0.2 cm. Compounding Pharmacy Technician sections are submitted in three cassettes as follows: 1 - femoral head, 2 - detached pieces of bone, 3 - soft tissue. Cassettes 1 & 2 are submitted after decalcification. / HEIDE:melodie 11/08/19 TC:5 CPT: 92883, [id number]
--- NOTE | 2019-11-05 12:03 | RAD_ITS ---
STUDY: X-RAY - PELVIS REASON FOR EXAM: Female, 74 years old. PT C/O RIGHT HIP PAIN. ONSET YESTERDAY. UNKNOWN CAUSE. DENIES INJURY BUT FELT A POP WHEN WALKING TECHNIQUE: One view of the pelvis was obtained. COMPARISON: None. FINDINGS: There is a non-specific bowel gas pattern. There are atherosclerotic vascular calcifications of the pelvic arteries. Normal bilateral iliac wings, sacroiliac joints and visualized sacrum. Normal visualized bilateral superior and inferior pubic rami. Normal pubic symphysis. Normal ischial tuberosities. Nondisplaced impacted right subcapital fracture. Status post left total hip replacement. Prior laminectomy and fusion in the lower lumbar spine. RAD/Pelvis 1 or 2 Views IMPRESSION: Nondisplaced impacted right subcapital fracture. Status post left total hip replacement. Electronically Signed: Edward Stoll, at 13:38 EDT , Service support ,
[2019-11-05] MEDS: morphine 8 MG/ML Syringe SC (12:17)
--- NOTE | 2019-11-05 12:18 | RAD_ITS ---
STUDY: X-RAY - RIGHT FEMUR REASON FOR STUDY: Female, 74 years old. PT C/O RIGHT HIP PAIN. ONSET YESTERDAY. UNKNOWN CAUSE. DENIES INJURY BUT FELT A POP WHEN WALKING TECHNIQUE: 2 view(s) of the femur. COMPARISON: None. FINDINGS: There is a nondisplaced impacted subcapital fracture. Vascular calcification. RAD/Femur Min 2 Views IMPRESSION: Nondisplaced impacted subcapital fracture. Electronically Signed: Edward Stoll, at 13:36 EDT , Service support ,
--- NOTE | 2019-11-05 13:20 | RAD_ITS ---
STUDY: X-RAY CHEST REASON FOR EXAM: Female, 74 years old. PT C/O RIGHT HIP PAIN. ONSET YESTERDAY. UNKNOWN CAUSE. DENIES INJURY BUT FELT A POP WHEN WALKING TECHNIQUE: Single AP portable view of the chest. COMPARISON: None. FINDINGS: The lungs are clear and expanded. There is no demonstrated pleural abnormality. Normal size heart. Normal mediastinum and cori. Normal visualized pulmonary arteries. There is atherosclerotic calcification of the aortic arch with tortuosity. Normal visualized thoracic spine. Normal visualized ribs, clavicles, and shoulders. Surgical clips are seen in the epigastric region. RAD/Chest 1 View IMPRESSION: No acute abnormality is seen. Electronically Signed: Edward Stoll, at 13:38 EDT , Service support ,
--- NOTE | 2019-11-05 13:26 | EKG12_ITS ---
Test Reason : HIP Blood Pressure : / mmHG Vent. Rate : 058 BPM Atrial Rate : 058 BPM P-R Int : 248 ms QRS Dur : 084 ms QT Int : 426 ms P-R-T Axes : 053 045 037 degrees QTc Int : 418 ms Sinus bradycardia with 1st degree A-V block Otherwise normal ECG Confirmed by TAMARA MURRAY, SHELLEY ([id number]), website/blog editor GREER ANN ([id number] on 11/09/2019 2:20:08 PM Referred By: BARBARA Confirmed By:ALBERT MCDONALD MD
--- NOTE | 2019-11-05 13:38 | ED.DCSUM_ITS ---
History of Present Illness Narrative: 74-year-old female presents to the emergency department with right hip pain. Earlier this morning the patient states she was walking and felt 2 pops in her right hip and since that time has had severe pain in her right hip and having extreme difficulty ambulating to the point where she can stand with help but cannot walk on her own. She did not fall or suffer trauma. No back pain. No numbness tingling or weakness. She had similar symptoms a couple of months ago and ended up finding out her left hip was broken and had a surgery for that done here about 2 months ago. Tetanus Immunization: Unknown Prior similar symptoms: Yes Recent Illness/Hospitalization: Yes <Virgilio Solorio - Last Filed: 11/05/19 14:01> <Navid Christopher - Last Filed: 11/05/19 14:38> Chief Complaint: Lower Extremity Injury Past Medical History Prior records reviewed: Yes Past Medical History: - - diabetes mellitus and rheumatoid arthritis Surgical History: herniorrhaphy, - - left ankle, carpal tunnel, gastric bypass Smoking Status: Never smoker - Family History Maternal Family History: Reports: Cancer - uterine Paternal Family History: Reports: Cancer - prostate, Heart Disease <Virgilio Solorio - Last Filed: 11/05/19 14:01> <Navid Christopher - Last Filed: 11/05/19 14:38> - Allergies and Home Meds Allergies/Adverse Reactions: Allergies No Known Allergies Allergy (Verified 09/07/19 14:49) Review of Systems All systems negative except as indicated General: Denies: Chills, Fever Eyes: Denies: Visual changes - bilaterally, Blurred Vision - bilaterally, Diplopia ENT: Denies: Rhinorrhea, Sore throat Cardiovascular: Denies: Chest pain, Palpitations, Heart racing Respiratory: Denies: Dyspnea, Cough, Sputum Gastrointestinal: Denies: Abdominal pain, Nausea, Vomiting, Diarrhea Genitourinary: Denies: Dysuria, Hematuria, Frequency Musculoskeletal: Reports: Extremity Pain. Denies: Myalgias, Arthralgias, Neck pain, Back pain, Swelling Skin: Denies: Rash, Abscess, Abrasions, Wounds Neurological: Denies: Headache, Weakness, Parasthesia, Numbness Hematologic: Reports: Easy bruising. Denies: Easy bleeding <Virgilio Solorio - Last Filed: 11/05/19 14:01> Physical Exam Vital Signs/Narrative: Vital Signs Temp Pulse Resp BP Pulse Ox 11/05/19 11:13 96.8 F L 55 L 16 207/74 H 95 Inital Vital Signs reviewed: Yes - Extremity Exam Right Hip: - - Patient has diffuse pain on her right thigh, right lateral hip and around her pelvis and her right buttock but inspection is normal there is no obvious shortening or rotation she does have pain with logroll. She has very limited range of motion due to pain. DP and PT pulse and sensation are normal. General: Well nourished, Well developed Head: Normocephalic, Atraumatic Eyes: Perrl, EOMI ENT: No Trauma, Moist Mucous Membranes Neck: Nontender, Full ROM Cardiovascular: Regular rate, Regular rhythm, No murmurs Respiratory: No distress, CTA bilaterally, Chest nontender Abdomen: Soft, Nontender, Nondistended, Normal bowel sounds, No masses Back: Nontender Skin: Normal color, No rash, No Trauma Neurological: Alert, Oriented x3, Normal Strength, Normal Sensation Psychological: Normal affect, Normal Mood <Virgilio Solorio - Last Filed: 11/05/19 14:01> Vital Signs/Narrative: Vital Signs Temp Pulse Resp BP Pulse Ox 11/05/19 11:13 96.8 F L 55 L 16 207/74 H 95 <Navid Christopher - Last Filed: 11/05/19 14:38> Diagnostic/Tx/Re-eval Chest X-Ray - ED: 1 View, Read by ED Physician, Read by Radiologist, No Acute Disease - Rhythm Strip Rhythm Strip: Sinus Rhythm Ectopy: None - EKG Initial EKG Interpretation: Sinus Rhythm, No Acute Injury Pattern Prior: Unchanged - Medical Decision Making Initially patient was complaining of atraumatic right hip pain she was given a dose of morphine and we obtain x-rays, junior technical writer contacted me to let me know that patient likely has hip fracture so they obtained a chest x-ray while in radiology. IV was established patient was given IV Dilaudid. Labs were obtained. Dr. Karimi was contacted who agreed to accept the patient for surgery for her hip fracture, as he did her other hip 2 months ago. I then contacted the hospitalist for admission Dr. Adan. <Virgilio Solorio - Last Filed: 11/05/19 14:01> - Medical Decision Making I supervised the PA and have performed my own pertinent history and physical. Results and treatment plan were discussed. HPI: Patient reports that she has had pain in her right hip for the past few days, but she has been able to walk with her walker. Today she was walking out of the wound clinic and felt a pop in her hip. She reports she has severe pain and cannot walk now. She denies any fall or MVA. PE: Extremity: Severe tenderness palpation over the right greater trochanter. She has pain with any movement of her hip including external and internal rotation. She has a 2+ dorsalis pedis pulse. Emergency Department course: Patient was treated with morphine and then Dilaudid when her pain was not relieved. X-ray shows an impacted subcapital fracture on the right. Treatment Plan: Patient was discussed with Dr. Karimi and the hospitalist. She will be admitted for further evaluation and treatment. This note was generated with [employer] dictation software. It may contain incorrect words, spelling, and punctuation that were not noted in review of the chart prior to signing. <Navid Christopher - Last Filed: 11/05/19 14:38> ED Disposition <Virgilio Solorio - Last Filed: 11/05/19 14:01> <Navid Christopher - Last Filed: 11/05/19 14:38> - Plan for ED Patient: Disposition: Acute Care Hospital [facility] Diagnosis: Fracture of femur, subcapital, right, closed, CKD (chronic kidney disease), stage III, T2DM (type 2 diabetes mellitus), Rheumatoid arthritis
[2019-11-05] MEDS: Ondansetron 4 MG/2 ML Vial IV (13:42)
[2019-11-05] MEDS: HYDROmorphone 1 MG/ML Syringe 0.5 MG IV (13:42)
[2019-11-05 13:57] LABS: Absolute Lymphocyte Count 1.24 X10^3/uL (0.83-4.51); Absolute Neutrophil Count 7.1 X10^3/uL (2.0-7.7); Basophil# 0.03 X10^3/uL; Basophil% 0.3 % (0-1); Eosinophil# 0.16 X10^3/uL; Eosinophils% 1.7 % (0-5); Hematocrit 36.1 % (37-47); Hemoglobin 11.3 g/dL (12.0-15.0); Lymphocyte # 1.24 X10^3/ul (4.0); Lymphocyte % 13.5 % (19-41); Mean Corp Hgb Conc 31.3 g/dL (32-36); Mean Corpuscular Hgb 28.5 pg (27.0-32.0); Mean Corpuscular Volume 91.2 fL (81-99); Mean Platelet Vol. 9.2 fl (6.2-12.0); Monocyte# 0.65 X10^3/uL; Monocyte% 7.1 % (0-10); NRBC Flagged by Analyzer 0 % (0-5); Neutrophil # 7.05 X10^3/uL (2.7-7.7); Neutrophil % 76.6 % (47-70); Platelet Count 301 K/mm3 (150-450); RBC Distribution Width SD 50.1 fl (35.1-43.9); Red Blood Count 3.96 M/mm3 (4.2-5.4); White Blood Count 9.2 K/mm3 (4.4-11.0)
[2019-11-05 14:08] LABS: Anion Gap 9 (5-15); BUN 34 mg/dL (7-18); BUN/Creat Ratio 34.9 RATIO (10-20); Chloride 103 mmol/L (98-107); Creatinine, Serum 0.98 mg/dL (0.55-1.02); EST Glomerular Filtration Rate 59 mL/min (>60); Est Glom Filt Rate - Afr Amer 72 mL/min (>60); Estimated Creatinine Clearance 59.31 ml/min; Glucose 124 mg/dL (74-106); Potassium 4.5 mmol/L (3.5-5.1); Sodium Level 136 mmol/L (136-145)
[2019-11-05] MEDS: HYDROmorphone 0.5 MG/0.5 ML SYRINGE IV ×4 (14:11→23:55)
--- NOTE | 2019-11-05 14:12 | HP.PCM_ITS ---
<Kamlesh York - Last Filed: 11/05/19 14:12> Problem List (1) Fracture of femur, subcapital, right, closed Status: Acute (2) CKD (chronic kidney disease), stage III Status: Chronic (3) Rheumatoid arthritis Status: Chronic (4) T2DM (type 2 diabetes mellitus) Status: Chronic Qualifiers: Diabetes mellitus extermination supervisor insulin use: with extermination supervisor use Diabetes mellitus complication status: with skin complications Diabetes mellitus complication detail: with other skin ulcer Qualified Code(s): E11.622 - Type 2 diabetes mellitus with other skin ulcer; Z79.4 - prison (current) use of insulin (5) Venous stasis dermatitis of both lower extremities Status: Chronic History of Present Illness Date of Admission: 11/05/19 Chief Complaint: RLE pain The patient is a 74 year old F with past medical history of rheumatoid arthritis, CKD stage III, type 2 diabetes, chronic venous stasis lower extremities with right lower extremity venous ulcer, recent admission with a left-sided femoral neck fracture, who presented the emergency room with right lower extremity pain. This began today when she was walking down the stairs of her house to go to a wound center appointment. She felt a pop in her right hip and was not able to walk following this. The pain was 10 out of 10 and so severe that she felt that she could not go to her appointment and she needed to go to the ER immediately. And in the ER she was found to have a right sided nondisplaced impacted subcapital fracture. Dr. Karimi performed her prior surgery, was contacted, and will evaluate the patient for possible surgery. Patient's pain is still currently 10 out of 10 at rest without moving. She has otherwise been well, no recent illness, infection, antibiotic use, no changes to her medications. She notes that her chronic right lower extremity venous ulcer is healing well. [] Past Medical History Past Medical History (Chronic Problems): Chronic Problems Venous stasis dermatitis of both lower extremities (Chronic) Venous stasis ulcer of right lower leg with edema of right lower leg (Chronic) T2DM (type 2 diabetes mellitus) (Chronic) Rheumatoid arthritis (Chronic) CKD (chronic kidney disease), stage III (Chronic) Edema of both lower extremities (Chronic) Allergies No Known Allergies Allergy (Verified 09/07/19 14:49) Home Medications: Ambulatory Orders Medication Instructions Recorded Ferrous Sulfate [Iron] 325 mg PO DAILY 08/14/17 Pramipexole Di-HCl [Mirapex] 2 mg PO QHS 08/14/17 Propranolol HCl 20 mg PO BID 10/28/18 Hydroxychloroquine Sulfate 200 mg PO DAILY 09/07/19 [Plaquenil] Insulin Detemir [Levemir FlexPen] 28 units SUBCUT DAILY 09/07/19 Acetaminophen [Tylenol Tablet] 650 mg PO Q6H PRN PRN tab 09/14/19 Aspirin [Aspirin, Baby] 81 mg PO DAILY 11/05/19 Furosemide [Lasix] 40 mg PO DAILY 11/05/19 Glimepiride 0.5 mg PO DAILY 11/05/19 Surgical History: herniorrhaphy, - - left ankle, carpal tunnel, gastric bypass, left hip cemented hemiarthroplasty Psychiatric History: No pertinent psych hx 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 Lives: With Family Smoking Status: Never smoker Tobacco Use: Non-smoker Alcohol: None Drugs: None - *Family History Maternal History Items: Cancer - uterine Paternal History Items: Cancer - prostate, Heart Disease Review of Systems Constitutional: Denies: Chills, Fever, Weight Change HEENT: Denies: Head Aches, Sinus Congestion, Sinus Drainage Cardiovascular: Denies: Chest Pain, Palpitations Respiratory: Denies: Cough, Shortness of breath at rest, Sputum production Gastrointestinal: Denies: Abdominal Pain, Nausea, Vomiting Genitourinary: Denies: Dysuria Musculoskeletal: Reports: Joint Pain, Joint Tenderness Skin: Denies: Rash, Wounds Neurological: Denies: Numbness, Tingling, Focal weakness Psychiatric: Denies: Anxiety, Depression, Homicidal Ideations, Suicidal Ideations Hematologic/ Lymphatic: Denies: Easy Bruising, Easy Bleeding VTE Information - Inpt Only VTE Present on Admission: No VTE Mechan Device Prophylaxis: None VTE Pharm Prophylaxis ordered?: Yes Patient Problems: Active and Suspected Problems Fracture of femur, subcapital, right, closed (Acute) - Physical Exam Vitals/I&O's: Vital Signs Temp Pulse Resp BP Pulse Ox 96.8 F L 55 L 16 207/74 H 95 11/05/19 11:13 11/05/19 11:13 11/05/19 11:13 11/05/19 11:13 11/05/19 11:13 Oxygen Delivery Method Room Air Weight: 162 lb Body Mass Index (BMI) 32.7 Finger Stick Blood Glucose 150 General: Alert, Oriented x3, Cooperative HEENT: Atraumatic, PERRLA, EOMI, Normocephalic Neck: Supple, No JVD, Negative Carotid Bruits Lungs: Clear to auscultation, Normal air movement Cardiovascular: Regular rate, No murmurs Abdomen: Bowel Sounds Present, Soft, Non Tender Extremities: No edema, Capillary Refill Less than 3 Seconds Skin: No rashes, No breakdown Musculoskeletal: - - ROM limited 2/2 pain Neurological: Cranial nerves II-XII grossly intact Psych/Mental Status: Normal Affect, Appropriate, Alert and oriented to time, place, person, mood and affect Laboratory Results 11/05/19 13:45: WBC 9.2, RBC 3.96 L, Hgb 11.3 L, Hct 36.1 L, MCV 91.2, MCH 28.5, MCHC 31.3 L, RDW Std Deviation 50.1 H, RDW Coeff of Fady 15.0 H, Plt Count 301, MPV 9.2, Immature Gran % (Auto) 0.800, Neut % (Auto) 76.6 H, Lymph % (Auto) 13.5 L, Dane % (Auto) 7.1, Eos % (Auto) 1.7, Baso % (Auto) 0.3, Absolute Neuts (auto) 7.1, Absolute Lymphs (auto) 1.24, Nucleated RBC % 0 11/05/19 13:45: Sodium 136, Potassium 4.5, Chloride 103, Carbon Dioxide 24.0, Anion Gap 9, BUN 34 H, Creatinine 0.98, Estim Creat Clear Calc 59.31, Est GFR (MDRD) Af Amer 72, Est GFR (MDRD) Non-Af 59 L, BUN/Creatinine Ratio 34.9 H, Glucose 124 H, Calcium 9.0 Assessment/Plan All Active Problems Open wound of left lower extremity (Acute) Ulcer of right lower extremity with fat layer exposed (Resolved) Femoral neck fracture (Acute) Dermatitis (Resolved) Fracture of femur, subcapital, right, closed (Acute) 1. Acute right nondisplaced subcapital fracture - pt felt pop walking down stairs this am. BP elevated 2/2 severe pain. XRay pelvis c/w nondisplaced right subap fx. consult Dr. Karimi. Risk score will be placed on chart. 2. RA - plaquenil, not on mtx. 3. DMt2 - hold levemir, SSI. Hold glimeperide. 4. CKDIII - no helena at this time, will trend. 5. Chronic venous stasis with RLE venous ulcer, - healing. f/u as directed with wound care center. DVT ppx: per ortho DC Planning: ptot, was able to go home at dc after last fx, normally ambulates with walker. This patient was seen by Kamlesh York PA-C under the supervision of Dr. Adan. <Stephanie Adan - Last Filed: 11/05/19 15:43> History of Present Illness The patient is a 74 year old F [] Past Medical History Allergies No Known Allergies Allergy (Verified 09/07/19 14:49) - Physical Exam Vitals/I&O's: Vital Signs Temp Pulse Resp BP Pulse Ox 97.4 F L 61 16 202/79 H 98 11/05/19 14:54 11/05/19 14:54 11/05/19 14:54 11/05/19 14:55 11/05/19 14:54 Oxygen Delivery Method Room Air Weight: 72.7 kg Body Mass Index (BMI) 32.3 Finger Stick Blood Glucose 150 Laboratory Results 11/05/19 13:45: WBC 9.2, RBC 3.96 L, Hgb 11.3 L, Hct 36.1 L, MCV 91.2, MCH 28.5, MCHC 31.3 L, RDW Std Deviation 50.1 H, RDW Coeff of Fady 15.0 H, Plt Count 301, MPV 9.2, Immature Gran % (Auto) 0.800, Neut % (Auto) 76.6 H, Lymph % (Auto) 13.5 L, Dane % (Auto) 7.1, Eos % (Auto) 1.7, Baso % (Auto) 0.3, Absolute Neuts (auto) 7.1, Absolute Lymphs (auto) 1.24, Nucleated RBC % 0 11/05/19 13:45: Sodium 136, Potassium 4.5, Chloride 103, Carbon Dioxide 24.0, Anion Gap 9, BUN 34 H, Creatinine 0.98, Estim Creat Clear Calc 59.31, Est GFR (MDRD) Af Amer 72, Est GFR (MDRD) Non-Af 59 L, BUN/Creatinine Ratio 34.9 H, Glucose 124 H, Calcium 9.0 11/05/19 13:45: Total Bilirubin Pending, Direct Bilirubin Pending, AST Pending, ALT Pending, Alkaline Phosphatase Pending, Total Protein Pending, Albumin Pending Current Medications Acetaminophen (Tylenol) 650 mg PO Q6H PRN PRN PRN Reason: Pain Score 1-10/Temp > 100.7 F Dextrose (D50w Syringe) 0 gm IV X1 PRN; Protocol PRN Reason: Hypoglycemia Ferrous Sulfate (Ferrous Sulfate) 325 mg PO DAILY@1200 ASHLYN Glucagon () 1 mg IM .X1 PRN PRN Reason: Hypoglycemia Heparin Sodium (Porcine) (Heparin Na) 5,000 unit SC X1 ONE Stop: 11/05/19 22:01 Hydralazine HCl (Apresoline Iv) 10 mg IV Q6H PRN PRN PRN Reason: BLOOD PRESSURE Hydroxychloroquine Sulfate (Plaquenil) 200 mg PO DAILY [facility] Sodium Chloride () 1,000 mls @ 75 mls/hr IV .[id number] [facility] Stop: 11/06/19 11:03 Last Admin: 11/05/19 15:10 Dose: 75 mls/hr Documented by: Insulin Glargine (Lantus (Bk)) 28 units SC DAILY [facility] Insulin Human Lispro (Humalog Kwikpen (Bk)) 0 unit SC ACHS [facility]; Protocol Morphine Sulfate () 2 mg IV Q3H PRN PRN PRN Reason: Pain Score 6-10/10 Ondansetron HCl (Zofran) 4 mg IV Q8H PRN PRN PRN Reason: NAUSEA/VOMITING Oxycodone HCl (Oxyir) 5 mg PO Q4H PRN PRN PRN Reason: Pain Score 4-5/10 Pramipexole Dihydrochloride (Mirapex) 2 mg PO QHS [facility] Propranolol HCl (Inderal) 20 mg PO BID [facility] Senna/Docusate Sodium (Senokot-S, Stefany-Colace) 2 tablet PO BID PRN PRN PRN Reason: Constipation Sodium Chloride () 10 - 40 ml IV UD PRN PRN Reason: SALINE FLUSH Last Admin: 11/05/19 15:01 Dose: 10 ml Documented by: Assessment/Plan This patient was seen in conjunction with EVANGELISTA Disla. I have independently interviewed and examined the patient and reviewed pertinent historical, laboratory, and other data. Please refer to EVANGELISTA Disla note for his patient's presentation, findings, and recommendations. I have reviewed and his note and concur with his documentation 74-year-old female with past medical history of rheumatoid arthritis, recent history of left femoral neck fracture without trauma who comes in with complaints of right hip pain. Patient felt some pain in her right hip but was able to move around with her walker. She had an appointment with the wound center and was coming down the staircase when she felt a pop and had pain on ambulating. She went to have a wound appointment and subsequently came to the emergency department. She denied any falls or any trauma. She denies any fever or chills or respiratory distress. Vitals: BP 207/74, HR 55, Temp 96.8F, RR 16, Spo2 95%. Physical Exam: Gen: Comfortable, not pale, not jaundiced, comfortable. CVS:HS I +II, regular, no murmurs RESP: CTA GI: BS present and normal, soft, nontender, no palpable organs EXT: Bilateral leg edema +1, right leg wound is healed up ASSESSMENT: 1. Acute right non-displaced subcapital fracture, atraumatic-is low risk for planned procedure. See ACS NSQIP form on patient's paper chart 2. Uncontrolled hypertension 3. Rheumatoid arthritis, on Plaquenil 4. Type 2 DM 5. CKD stage 3 6. Chronic venous stasis with right leg ulcer(healed) Plan: We will hold heparin after midnight for surgery Switch from Accu-Cheks before meals at bedtime with insulin sliding scale to every 6h Hold home glimepiride Hydralazine as needed for blood pressure more than 160 mmHg Pain controlled with Tylenol, PRN oxycodone and morphine Orthopedics consulted from ED Inpatient E&M: [id number] Init Hosp L3
--- NOTE | 2019-11-05 14:16 | NURSING ---
110 RT HIP FX PAINTSIL
[2019-11-05] MEDS: 0.9% Saline Lock 10 ML Syringe IV (15:01)
[2019-11-05] MEDS: 0.9% Normal Saline 1,000 ML 75 ML IV (15:10)
[2019-11-05 15:41] LABS: AST(SGOT) 18 U/L (15-37); Alanine Aminotransfer ALT/SGPT 32 U/L (13-56); Albumin, Serum 3.5 g/dL (3.2-5.0); Alkaline Phosphatase 149 U/L (45-117); Globulin 3.9 g/dL (2.2-4.2); Protein, Total 7.4 g/dL (6.4-8.2)
[2019-11-05] MEDS: oxyCODONE 5 MG Tablet PO (16:31)
[2019-11-05] MEDS: hydrALAZINE 20 MG/ML Vial 10 MG IV (16:31)
[2019-11-05 17:35] LABS: Bedside Glucose 112 mg/dL (70-110)
[2019-11-05] MEDS: Pramipexole Di-HCl 1 MG Tablet 2 MG PO (21:10)
[2019-11-05] MEDS: Propranolol 10 MG Tablet 20 MG PO (21:10)
[2019-11-05] MEDS: Insulin Lispro 100 UNIT/ML INSULN.PEN SC (21:17)
[2019-11-05 21:46] LABS: Bedside Glucose 152 mg/dL (70-110)
[2019-11-06] VITALS (10 sets, daily range): BP systolic 128–180; BP diastolic 59–76; PULSE 59–78; RESP 16–18; TEMP 36.6–37.1; O2SAT 6–100; BMI 32.4
[2019-11-06] MEDS: oxyCODONE 5 MG Tablet PO ×3 (01:03→17:24)
[2019-11-06] MEDS: HYDROmorphone 0.5 MG/0.5 ML SYRINGE IV ×2 (04:09→20:29)
[2019-11-06 06:12] LABS: Absolute Lymphocyte Count 0.99 X10^3/uL (0.83-4.51); Absolute Neutrophil Count 5.1 X10^3/uL (2.0-7.7); Basophil# 0.03 X10^3/uL; Basophil% 0.4 % (0-1); Eosinophils% 1.5 % (0-5); Lymphocyte # 0.99 X10^3/ul (4.0); Lymphocyte % 14.5 % (19-41); Mean Corp Hgb Conc 31.3 g/dL (32-36); Mean Corpuscular Hgb 28.8 pg (27.0-32.0); Mean Corpuscular Volume 92.2 fL (81-99); Mean Platelet Vol. 9.3 fl (6.2-12.0); Monocyte# 0.57 X10^3/uL; Monocyte% 8.4 % (0-10); NRBC Flagged by Analyzer 0 % (0-5); Neutrophil % 74.8 % (47-70); Platelet Count 262 K/mm3 (150-450); RBC Distribution Width CV 15.2 % (11.6-14.6); Red Blood Count 3.47 M/mm3 (4.2-5.4); White Blood Count 6.8 K/mm3 (4.4-11.0)
[2019-11-06 07:00] LABS: Bedside Glucose 138 mg/dL (70-110)
[2019-11-06] MEDS: 0.9% Normal Saline 1,000 ML 75 ML IV (07:07)
[2019-11-06 07:11] LABS: ALB/GLOB Ratio 0.8 RATIO (0.9-2.4); AST(SGOT) 13 U/L (15-37); Alanine Aminotransfer ALT/SGPT 25 U/L (13-56); Albumin, Serum 2.7 g/dL (3.2-5.0); Alkaline Phosphatase 124 U/L (45-117); Anion Gap 6 (5-15); BUN 29 mg/dL (7-18); BUN/Creat Ratio 29.9 RATIO (10-20); Calcium,Total 8.3 mg/dL (8.5-10.1); Chloride 105 mmol/L (98-107); Creatinine, Serum 0.97 mg/dL (0.55-1.02); EST Glomerular Filtration Rate 60 mL/min (>60); Est Glom Filt Rate - Afr Amer 72 mL/min (>60); Estimated Creatinine Clearance 59.28 ml/min; Globulin 3.4 g/dL (2.2-4.2); Glucose 135 mg/dL (74-106); Potassium 4.8 mmol/L (3.5-5.1); Protein, Total 6.1 g/dL (6.4-8.2); Sodium Level 137 mmol/L (136-145)
--- NOTE | 2019-11-06 07:27 | CON.PCM_ITS ---
Reason for Consult Date of Consultation: 11/06/19 History of Present Illness: The patient is a 74 year old female with a history of rheumatoid arthritis previously on steroids that developed right hip pain on November 04, 2019. She denies any significant trauma. On November 05, 2019 she tried to stand up and developed severe pain. He was seen at the hospital and diagnosed with a right femoral neck fracture. She was admitted to the hospitalist service and orthopedics was appropriately consulted. He had a left hip fracture approximately 2 months ago treated with surgery. He has been diagnosed with osteoporosis in the past. He has not had a recent bone density test. [] Past Medical History Past Medical History (Chronic Problems): Chronic Problems Venous stasis dermatitis of both lower extremities (Chronic) Venous stasis ulcer of right lower leg with edema of right lower leg (Chronic) T2DM (type 2 diabetes mellitus) (Chronic) Rheumatoid arthritis (Chronic) CKD (chronic kidney disease), stage III (Chronic) Edema of both lower extremities (Chronic) Allergies No Known Allergies Allergy (Verified 09/07/19 14:49) Home Medications: Ambulatory Orders Medication Instructions Recorded RX: Ferrous Sulfate [Iron] 325 mg PO DAILY 08/14/17 RX: Pramipexole Di-HCl [Mirapex] 2 mg PO QHS 08/14/17 RX: Propranolol HCl 20 mg PO BID 10/28/18 RX: Hydroxychloroquine Sulfate 200 mg PO DAILY 09/07/19 [Plaquenil] RX: Insulin Detemir [Levemir 28 units SUBCUT DAILY 09/07/19 FlexPen] RX: Acetaminophen [Tylenol Tablet] 650 mg PO Q6H PRN PRN tab 09/14/19 Furosemide [Lasix] 40 mg PO DAILY 11/05/19 RX: Aspirin [Aspirin, Baby] 81 mg PO DAILY 11/05/19 RX: Glimepiride 0.5 mg PO DAILY 11/05/19 Surgical History: herniorrhaphy, - - left ankle, carpal tunnel, gastric bypass, left hip cemented hemiarthroplasty Psychiatric History: No 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 Speaking easily in normal sentences. She is alert and oriented x3 and cooperative exam. Pleasant during the exam. He has no pain or deformity of the left hip. Right hip has shortening and external rotation. Right hip has pain on palpation. She had no calf pain or swelling bilaterally. Negative Homans sign bilaterally. Good active dorsiflexion toes and ankles bilaterally. Good distal pulses. The right hip was initialed. Review of systems performed and updated as per consult note X-rays AP pelvis AP and lateral right femur shows a femoral neck fracture on the right with displacement. Osteopenia. Left hip hemiarthroplasty noted. Laboratory work and vital signs reviewed - Physical Exam Vitals/I&O's: Vital Signs Temp Pulse Resp BP Pulse Ox 98.0 F 63 16 157/76 H 95 11/06/19 07:21 11/06/19 07:21 11/06/19 07:21 11/06/19 07:21 11/06/19 07:21 Oxygen Delivery Method Room Air Weight: 72.7 kg Body Mass Index (BMI) 32.3 Finger Stick Blood Glucose 150 Intake and Output for Last 24 Hours 11/04/19 11/05/19 11/06/19 23:59 23:59 23:59 Intake Total 500 / 860 1360 / 1360 Output Total 1025 / 1025 600 / 600 Balance -525 / -165 760 / 760 Laboratory Results 11/05/19 13:45: WBC 9.2, RBC 3.96 L, Hgb 11.3 L, Hct 36.1 L, MCV 91.2, MCH 28.5, MCHC 31.3 L, RDW Std Deviation 50.1 H, RDW Coeff of Fady 15.0 H, Plt Count 301, MPV 9.2, Immature Gran % (Auto) 0.800, Neut % (Auto) 76.6 H, Lymph % (Auto) 13.5 L, Flagler % (Auto) 7.1, Eos % (Auto) 1.7, Baso % (Auto) 0.3, Absolute Neuts (auto) 7.1, Absolute Lymphs (auto) 1.24, Nucleated RBC % 0 11/05/19 13:45: Sodium 136, Potassium 4.5, Chloride 103, Carbon Dioxide 24.0, Anion Gap 9, BUN 34 H, Creatinine 0.98, Estim Creat Clear Calc 59.31, Est GFR (MDRD) Af Amer 72, Est GFR (MDRD) Non-Af 59 L, BUN/Creatinine Ratio 34.9 H, Glucose 124 H, Calcium 9.0 11/05/19 13:45: Total Bilirubin 0.40, Direct Bilirubin 0.10, AST 18, ALT 32, Alkaline Phosphatase 149 H, Total Protein 7.4, Albumin 3.5, Globulin 3.9 11/05/19 16:14: POC Glucose 112 H 11/05/19 21:16: POC Glucose 152 H 11/06/19 05:47: WBC 6.8, RBC 3.47 L, Hgb 10.0 L, Hct 32.0 L, MCV 92.2, MCH 28.8, MCHC 31.3 L, RDW Std Deviation 51.0 H, RDW Coeff of Fady 15.2 H, Plt Count 262, MPV 9.3, Immature Gran % (Auto) 0.400, Neut % (Auto) 74.8 H, Lymph % (Auto) 14.5 L, Flagler % (Auto) 8.4, Eos % (Auto) 1.5, Baso % (Auto) 0.4, Absolute Neuts (auto) 5.1, Absolute Lymphs (auto) 0.99, Nucleated RBC % 0 11/06/19 05:47: Sodium 137, Potassium 4.8, Chloride 105, Carbon Dioxide 26.0, Anion Gap 6, BUN 29 H, Creatinine 0.97, Estim Creat Clear Calc 59.28, Est GFR (MDRD) Af Amer 72, Est GFR (MDRD) Non-Af 60, BUN/Creatinine Ratio 29.9 H, Glucose 135 H, Calcium 8.3 L, Total Bilirubin 0.30, AST 13 L, ALT 25, Alkaline Phosphatase 124 H, Total Protein 6.1 L, Albumin 2.7 L, Globulin 3.4, Albumin/Globulin Ratio 0.8 L 11/06/19 06:39: POC Glucose 138 H Current Medications Acetaminophen (Tylenol) 650 mg PO Q6H PRN PRN PRN Reason: Pain Score 1-10/Temp > 100.7 F Dextrose (D50w Syringe) 0 gm IV X1 PRN; Protocol PRN Reason: Hypoglycemia Ferrous Sulfate (Ferrous Sulfate) 325 mg PO DAILY@1200 [facility] Glucagon () 1 mg IM .X1 PRN PRN Reason: Hypoglycemia Hydralazine HCl (Apresoline Iv) 10 mg IV Q6H PRN PRN PRN Reason: BLOOD PRESSURE Last Admin: 11/05/19 16:31 Dose: 10 mg Documented by: Hydromorphone HCl (Dilaudid Inj) 0.5 mg IV Q3H PRN PRN PRN Reason: Pain Score 6-10/10 Last Admin: 11/06/19 04:09 Dose: 0.5 mg Documented by: Hydroxychloroquine Sulfate (Plaquenil) 200 mg PO DAILY [facility] Sodium Chloride () 1,000 mls @ 75 mls/hr IV .[id number] [facility]1983 Stop: 11/06/19 11:03 Last Admin: 11/06/19 07:07 Dose: 75 mls/hr Documented by: Insulin Glargine (Lantus (Bkc)) 28 units SC DAILY [facility], [facility]1983 Insulin Human Lispro (Humalog Kwikpen ([facility])) 0 unit SC ACHS [facility], [facility]; Protocol Last Admin: 11/06/19 07:07 Dose: Not Given Documented by: Ondansetron HCl (Zofran) 4 mg IV Q8H PRN PRN PRN Reason: NAUSEA/VOMITING Oxycodone HCl (Oxyir) 5 mg PO Q4H PRN PRN PRN Reason: Pain Score 4-5/10 Last Admin: 11/06/19 01:03 Dose: 5 mg Documented by: Pramipexole Dihydrochloride (Mirapex) 2 mg PO QHS [facility] Last Admin: 11/05/19 21:10 Dose: 2 mg Documented by: Propranolol HCl (Inderal) 20 mg PO BID [facility] Last Admin: 11/05/19 21:10 Dose: 20 mg Documented by: Senna/Docusate Sodium (Senokot-S, Stefany-Colace) 2 tablet PO BID PRN PRN PRN Reason: Constipation Sodium Chloride () 10 - 40 ml IV UD PRN PRN Reason: SALINE FLUSH Last Admin: 11/05/19 15:01 Dose: 10 ml Documented by: Assessment/Plan All Active Problems Open wound of left lower extremity (Acute) Ulcer of right lower extremity with fat layer exposed (Resolved) Femoral neck fracture (Acute) Dermatitis (Resolved) Fracture of femur, subcapital, right, closed (Acute) Right hip displaced femoral neck fracture her diagnosis and treatment discussed with her at length. She would like to proceed with right hip cemented hemiarthroplasty as done on her left hip recently Risk of surgery including but not limited to from operative or postoperative complications. Risk of anesthetic complications such as heart attacks, strokes, seizures, or . Risk of infections. Risk of damage to nerves arteries tendons. Risk of inadvertent fractures or dislocations. Risk of bone or wound healing complications. Possibility of nonunion malunion pain stiffness weakness. Possible need for further surgery such as hardware removal. Risk of DVT PE and other potential complications could lead to or disability explained. No guarantees were stated or implied. All of their quest ions were answered. Appropriate informed consent was obtained and signed for surgical intervention. Evaluation and treatment of other medical comorbidities per the hospitalist service. 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
[2019-11-06] MEDS: Lactated Ringers 1,000 ML 100 ML IV ×2 (07:45→11:59)
[2019-11-06] MEDS: Cefazolin 2 GM in 0.9% Normal Saline 100 ML IV (07:51)
--- NOTE | 2019-11-06 09:25 | PRO.PCM_ITS ---
Procedure Report Date of Procedure: 11/06/19 Preoperative diagnosis: Right hip displaced femoral neck fracture Postoperative diagnosis: Same Operation: Right hip cemented hemiarthroplasty Surgeon: Dr. Sourav Karimi MD Cost Accounting Analyst: Abimbola Esteves PA-C Anesthesia: General Anesthesiologist; EBL 50 Complications: None Special medications: Ancef, 2 g IV,Tranexamic acid IV x 1 Indications for surgery : Patient is a 74 -year-old [female] that the right hip pain and was diagnosed with a right hip. Appropriate informed consent was obtained and signed. Appropriate medical workup was performed preoperatively and patient was deemed safe for surgery by the anesthesia department medical record assistantEVANGELISTA was utilized throughout the entire procedure. They were vital in helping with patient positioning, holding of retractors, exposing the tissues adequately for safe completion of the procedure including cutting of the bone, helping leave coordinator appropriate alignment and sizing of the components, implantation of the components, as well as wound closure, bandage application, and safe patient transfer. Without operating room surgical technician, physician enrichment assistant, surgical time would have been significantly increased, and surgical outcome would have been less optimal. Operative findings: Patient displaced comminuted right femoral neck fracture. We used a Gualberto accolade C stem size #5 cemented. Bipolar 44 mm femoral head with a +4 neck length. 14 mm distal centralizer . this reproduced there anatomy nicely. Clinically good leg lengths were noted. Good hip stability through range of motion with no undue pistoning. Standard wound closure in layers, followed by val, followed by Mepilex dressing Details of procedure: Patient was taken to the operating room and transferred to the operating table. Given appropriate anesthetic agent by that department. Patient was then rolled into a lateral decubitus position with the involved painful hip up in the air. Appropriate timeouts had been performed. Hip had been appropriately marked with my initials. Padded anterior and posterior position was utilized. Axillary roll placed. RITU hose and SCDs on the nonoperative limb utilized throughout the procedure. Operative lower extremity was prepped padded and draped in the usual orthopedic sterile fashion for the procedure. I injected the pain relieving solution in the standard sterile technique of the soft tissues of the hip carefully. Incision was made curving over the tip of the greater trochanter posteriorly. Full thickness skin flaps are raised down on the fascia emory. Fascia emory was opened in length with our incision. Charnley self-retaining hip retractor was carefully placed by the surgeon. Leg was appropriately rotated by the enrichment assistant. Retractor was used to lift the abductors anteriorly to visualize the piriformis tendon and external rotators. Piriformis tendon and external rotators released off the greater trochanter with the Bovie. Tagging suture was placed in each of these separately. We then split the tissue superior to the piriformis tendon through capsule and onto the pelvis. Acetabular labrum was preserved. Retractors were carefully placed around the femoral neck. Displaced unstable femoral neck fracture identified. cutting guide was utilized to map out the proposed cut approximately 1 fingerbreadth above the lesser trochanter. This femoral neck cut was carried out with a saw. Fractured femoral head removed and measured and inspected. Femoral head was measured. Appropriate trial was utilized. A proximal femoral elevator utilized. We used a sharp awl entering down inside the bone of the proximal femur. Utilized the [employer] cutting osteotome the proximal lateral greater trochanteric region. The fragment removed. Broaching was then done from the smallest broach, upto the appropriate size. Good stability was confirmed. We then trialed the construct with a standard neck length and appropriate sized femoral head. We were happy with the construct. Good stability to flexion, rotation. At this point trials removed. 2 full batches of bone antibiotic bone cement were mixed. 2 sponges were placed in the acetabulum we prepared the canal with brushing. Cement restrictor was placed down to the appropriate depth. It was thoroughly irrigated clean and dry. When the cement was as the appropriate texture, we pressurized cement down in the femoral canal. The appropriate size stem then hammered into the proximal femur and seated down to a similar position as the trial had. Excess bone cement removed. Stem was held still while cement fully hardened. Pain relieving solution was injected while this was occurring. The cement was fully hardened, sponges were removed from the acetabulum. We now again trialed and appropriate neck length decided upon. It was then opened. Now impacted the appropriate sized femoral head, neck construct onto the clean dried trunion. Was noted to be stable. Hip was inspected, and joint was reduced for a final time. Good hip stability and leg lengths noted. This was then irrigated with saline and cleaned. Next the remainder of the pain relieving solution was injected carefully throughout the soft tissues of the hip joint. Closure was carried out with a combination of #1 Vicryl repairing the hip capsule as well as piriformis tendon and external rotators to bone, running #2 strata fix in the fascia emory, followed by mid layer #1 Vicryl with #1 strata fix running. Next running 0 strata fix, followed by skin val, Xeroform, Mepilex dressing. We placed RITU hose and SCD on the operative leg. Patient awoken from the anesthetic and transferred back to room bed in recovery room in satisfactory condition. Patient will be admitted to the hospital. Hospitalist service will continue to manage the medical issues. Hopeful discharge to home or ECF in 2-3 days. This note was generated with [employer] dictation software. It may contain incorrect words, spelling, and punctuation that were not noted in checking the note before signing.
--- NOTE | 2019-11-06 10:10 | RAD_ITS ---
STUDY: X-RAY - PELVIS AND RIGHT HIP REASON FOR EXAM: Female, 74 years old. post op TECHNIQUE: 2 views of the pelvis and hip. COMPARISON: None. FINDINGS: There is a normal bowel gas pattern. There are atherosclerotic vascular calcifications of the pelvic arteries. There is postoperative change in the soft tissues on the right. There is diffuse demineralization of the osseous structures. There is postoperative change of the lower lumbar spine. There is right hip replacement. Alignment is near-anatomic. There is stable left hip replacement. Alignment is near-anatomic. Normal bilateral iliac wings, sacroiliac joints and visualized sacrum. Normal bilateral superior and inferior pubic rami. Normal pubic symphysis. Normal bilateral ischial tuberosities. RAD/Hip Min 2 Views (Portable) IMPRESSION: Right hip replacement. Electronically Signed: Bam Lang MD at 14:48 EDT , Service support ,
[2019-11-06 10:21] LABS: Bedside Glucose 165 mg/dL (70-110)
[2019-11-06] MEDS: Insulin Lispro 100 UNIT/ML INSULN.PEN SC ×3 (11:56→20:40)
[2019-11-06] MEDS: Propranolol 10 MG Tablet 20 MG PO ×2 (11:57→20:41)
[2019-11-06] MEDS: Aspirin 81 MG TAB.CHEW PO ×2 (11:59→20:40)
[2019-11-06] MEDS: Ferrous Sulfate 325 MG Tablet PO (12:20)
[2019-11-06] MEDS: Cefazolin 1 GM/50 ML BAG IV ×2 (12:20→17:21)
[2019-11-06 12:36] LABS: Bedside Glucose 285 mg/dL (70-110)
--- NOTE | 2019-11-06 12:39 | PCM.PN.HOSP ---
<Kamlesh oYrk - Last Filed: 11/06/19 12:39> Patient Problems: Active and Suspected Problems Fracture of femur, subcapital, right, closed (Acute) Reason for Visit: right hip pain Subjective: pt resting comfortably in bed post op. sleeping, easily awoken. pain 7/10. no numbness/tingling. No SOB. No nausea. No fever/chills. Vitals/I&O's: Vital Signs Temp Pulse Resp BP Pulse Ox 98.7 F 76 16 159/71 H 98 11/06/19 10:52 11/06/19 10:52 11/06/19 10:52 11/06/19 10:52 11/06/19 10:52 Oxygen Flow Rate (L/min) 4 Oxygen Delivery Method Room Air Weight: 160 lb 4.417 oz Body Mass Index (BMI) 32.3 Finger Stick Blood Glucose 165 Intake and Output for Last 24 Hours 11/04/19 11/05/19 11/06/19 23:59 23:59 23:59 Intake Total 500 / 860 2113.33 / 2113.33 Output Total 1025 / 1025 600 / 600 Balance -525 / -165 1513.33 / 1513.33 General: Alert, Oriented x3, Cooperative HEENT: Atraumatic, PERRLA, EOMI, Normocephalic Neck: Supple, No JVD, Negative Carotid Bruits Lungs: Clear to auscultation, Normal air movement Cardiovascular: Regular rate, No murmurs Abdomen: Bowel Sounds Present, Soft, Non Tender Extremities: No edema, Capillary Refill Less than 3 Seconds Skin: No rashes, No breakdown Musculoskeletal: - - post op R hip, distal PMS intact Neurological: Cranial nerves II-XII grossly intact Psych/Mental Status: Normal Affect, Appropriate, Alert and oriented to time, place, person, mood and affect Laboratory Results 11/05/19 13:45: WBC 9.2, RBC 3.96 L, Hgb 11.3 L, Hct 36.1 L, MCV 91.2, MCH 28.5, MCHC 31.3 L, RDW Std Deviation 50.1 H, RDW Coeff of Fady 15.0 H, Plt Count 301, MPV 9.2, Immature Gran % (Auto) 0.800, Neut % (Auto) 76.6 H, Lymph % (Auto) 13.5 L, [place] % (Auto) 7.1, Eos % (Auto) 1.7, Baso % (Auto) 0.3, Absolute Neuts (auto) 7.1, Absolute Lymphs (auto) 1.24, Nucleated RBC % 0 11/05/19 13:45: Sodium 136, Potassium 4.5, Chloride 103, Carbon Dioxide 24.0, Anion Gap 9, BUN 34 H, Creatinine 0.98, Estim Creat Clear Calc 59.31, Est GFR (MDRD) Af Amer 72, Est GFR (MDRD) Non-Af 59 L, BUN/Creatinine Ratio 34.9 H, Glucose 124 H, Calcium 9.0 11/05/19 13:45: Total Bilirubin 0.40, Direct Bilirubin 0.10, AST 18, ALT 32, Alkaline Phosphatase 149 H, Total Protein 7.4, Albumin 3.5, Globulin 3.9 11/05/19 16:14: POC Glucose 112 H 11/05/19 21:16: POC Glucose 152 H 11/06/19 05:47: WBC 6.8, RBC 3.47 L, Hgb 10.0 L, Hct 32.0 L, MCV 92.2, MCH 28.8, MCHC 31.3 L, RDW Std Deviation 51.0 H, RDW Coeff of Fady 15.2 H, Plt Count 262, MPV 9.3, Immature Gran % (Auto) 0.400, Neut % (Auto) 74.8 H, Lymph % (Auto) 14.5 L, [place] % (Auto) 8.4, Eos % (Auto) 1.5, Baso % (Auto) 0.4, Absolute Neuts (auto) 5.1, Absolute Lymphs (auto) 0.99, Nucleated RBC % 0 11/06/19 05:47: Sodium 137, Potassium 4.8, Chloride 105, Carbon Dioxide 26.0, Anion Gap 6, BUN 29 H, Creatinine 0.97, Estim Creat Clear Calc 59.28, Est GFR (MDRD) Af Amer 72, Est GFR (MDRD) Non-Af 60, BUN/Creatinine Ratio 29.9 H, Glucose 135 H, Calcium 8.3 L, Total Bilirubin 0.30, AST 13 L, ALT 25, Alkaline Phosphatase 124 H, Total Protein 6.1 L, Albumin 2.7 L, Globulin 3.4, Albumin/Globulin Ratio 0.8 L 11/06/19 06:39: POC Glucose 138 H 11/06/19 10:14: POC Glucose 165 H 11/06/19 11:30: Vitamin D 25-Hydroxy Pending 11/06/19 11:54: POC Glucose 285 H Current Medications Acetaminophen (Tylenol) 650 mg PO Q6H PRN PRN PRN Reason: Pain Score 1-10/Temp > 100.7 F Acetaminophen (Tylenol) 1,000 mg PO Q8 [facility] Aspirin (Aspirin, Baby) 81 mg PO BID [facility] Last Admin: 11/06/19 11:59 Dose: 81 mg Documented by: Dextrose (D50w Syringe) 0 gm IV X1 PRN; Protocol PRN Reason: Hypoglycemia Ferrous Sulfate (Ferrous Sulfate) 325 mg PO DAILY@1200 [facility] Last Admin: 11/06/19 12:20 Dose: 325 mg Documented by: Glucagon () 1 mg IM .X1 PRN PRN Reason: Hypoglycemia Hydralazine HCl (Apresoline Iv) 10 mg IV Q6H PRN PRN PRN Reason: BLOOD PRESSURE Last Admin: 11/05/19 16:31 Dose: 10 mg Documented by: Hydromorphone HCl (Dilaudid Inj) 0.5 mg IV Q3H PRN PRN PRN Reason: Pain Score 6-10/10 Last Admin: 11/06/19 04:09 Dose: 0.5 mg Documented by: Hydroxychloroquine Sulfate (Plaquenil) 200 mg PO DAILY [facility] Cefazolin Sodium () 1 gm in 50 mls @ 150 mls/hr IV Q6 [facility] Stop: 11/07/19 00:19 Last Admin: 11/06/19 12:20 Dose: 150 mls/hr Documented by: Lactated Ringer's () 1,000 mls @ 100 mls/hr IV .Q10H [facility] Last Admin: 11/06/19 11:59 Dose: 100 mls/hr Documented by: Insulin Glargine (Lantus (Bk)) 28 units SC DAILY [facility] Last Admin: 11/06/19 11:56 Dose: 28 u Documented by: Insulin Human Lispro (Humalog Kwikpen ([facility])) 0 unit SC ACHS [facility]; Protocol Last Admin: 11/06/19 11:56 Dose: 2 u Documented by: Ondansetron HCl (Zofran) 4 mg IV Q8H PRN PRN PRN Reason: NAUSEA/VOMITING Oxycodone HCl (Oxyir) 5 mg PO Q4H PRN PRN PRN Reason: Pain Score 4-5/10 Last Admin: 11/06/19 12:07 Dose: 5 mg Documented by: Pramipexole Dihydrochloride (Mirapex) 2 mg PO QHS [facility] Last Admin: 11/05/19 21:10 Dose: 2 mg Documented by: Propranolol HCl (Inderal) 20 mg PO BID [facility] Last Admin: 11/06/19 11:57 Dose: 20 mg Documented by: Senna/Docusate Sodium (Senokot-S, Stefany-Colace) 2 tablet PO BID PRN PRN PRN Reason: Constipation Sodium Chloride () 10 - 40 ml IV UD PRN PRN Reason: SALINE FLUSH Last Admin: 11/05/19 15:01 Dose: 10 ml Documented by: STROKE Vital Signs/Narrative: Vital Signs Temp Pulse Resp BP Pulse Ox 11/06/19 10:52 98.7 F 76 16 159/71 H 98 11/06/19 10:28 98.4 F 78 18 172/67 H 97 11/06/19 10:15 64 18 178/72 H 100 11/06/19 10:00 97.8 F 66 16 180/67 H 6 Medical Necessity - Tobacco Use Smoking Status: Never smoker Tobacco Use: Non-smoker Assessment/Plan All Active Problems Open wound of left lower extremity (Acute) Ulcer of right lower extremity with fat layer exposed (Resolved) Femoral neck fracture (Acute) Dermatitis (Resolved) Fracture of femur, subcapital, right, closed (Acute) 1. Acute right nondisplaced subcapital fracture - Post op D#0. care per Dr. Karimi. Received periop cefazolin and tranexamic acid. This and recent left sided hip fx were atraumatic, Suspect osteoporosis. vit D pending. Corrected calcium normal. 2. RA - plaquenil, not on mtx. 3. DMt2 - SSI, levemir. hold glimeperide. 4. CKDIII - stable. 5. Chronic venous stasis with RLE venous ulcer, - healing. f/u as directed with wound care center. DVT ppx: per ortho: asa 81 BID DC Planning: ptot, was able to go home at dc after last fx, normally ambulates with walker. This patient was seen by Kamlesh York PA-C under the supervision of Dr. Kelly <Marco Antonio Kelly - Last Filed: 11/06/19 13:04> Subjective: seen post op. feeling well. Vitals/I&O's: Vital Signs Temp Pulse Resp BP Pulse Ox 37.1 C 76 16 159/71 H 98 11/06/19 10:52 11/06/19 10:52 11/06/19 10:52 11/06/19 10:52 11/06/19 10:52 Oxygen Flow Rate (L/min) 4 Oxygen Delivery Method Room Air Weight: 72.7 kg Body Mass Index (BMI) 32.3 Finger Stick Blood Glucose 165 Intake and Output for Last 24 Hours 11/04/19 11/05/19 11/06/19 23:59 23:59 23:59 Intake Total 500 / 860 2113.33 / 2113.33 Output Total 1025 / 1025 600 / 600 Balance -525 / -165 1513.33 / 1513.33 General: Alert, Cooperative HEENT: Atraumatic, Normocephalic Neck: No Nodes, Trachea Midline Lungs: Clear to auscultation, Normal air movement, No rhonchi, No wheeze Cardiovascular: Regular rate, Regular Rhythm, Normal S1, Normal S2, No murmurs Abdomen: Bowel Sounds Present, Soft, Non Tender, Non-Distended Extremities: No edema, No Calf Tenderness Skin: No rashes, No breakdown Musculoskeletal: - Psych/Mental Status: Normal Affect, Appropriate Laboratory Results 11/05/19 13:45: WBC 9.2, RBC 3.96 L, Hgb 11.3 L, Hct 36.1 L, MCV 91.2, MCH 28.5, MCHC 31.3 L, RDW Std Deviation 50.1 H, RDW Coeff of Fady 15.0 H, Plt Count 301, MPV 9.2, Immature Gran % (Auto) 0.800, Neut % (Auto) 76.6 H, Lymph % (Auto) 13.5 L, [place] % (Auto) 7.1, Eos % (Auto) 1.7, Baso % (Auto) 0.3, Absolute Neuts (auto) 7.1, Absolute Lymphs (auto) 1.24, Nucleated RBC % 0 11/05/19 13:45: Sodium 136, Potassium 4.5, Chloride 103, Carbon Dioxide 24.0, Anion Gap 9, BUN 34 H, Creatinine 0.98, Estim Creat Clear Calc 59.31, Est GFR (MDRD) Af Amer 72, Est GFR (MDRD) Non-Af 59 L, BUN/Creatinine Ratio 34.9 H, Glucose 124 H, Calcium 9.0 11/05/19 13:45: Total Bilirubin 0.40, Direct Bilirubin 0.10, AST 18, ALT 32, Alkaline Phosphatase 149 H, Total Protein 7.4, Albumin 3.5, Globulin 3.9 11/05/19 16:14: POC Glucose 112 H 11/05/19 21:16: POC Glucose 152 H 11/06/19 05:47: WBC 6.8, RBC 3.47 L, Hgb 10.0 L, Hct 32.0 L, MCV 92.2, MCH 28.8, MCHC 31.3 L, RDW Std Deviation 51.0 H, RDW Coeff of Fady 15.2 H, Plt Count 262, MPV 9.3, Immature Gran % (Auto) 0.400, Neut % (Auto) 74.8 H, Lymph % (Auto) 14.5 L, [place] % (Auto) 8.4, Eos % (Auto) 1.5, Baso % (Auto) 0.4, Absolute Neuts (auto) 5.1, Absolute Lymphs (auto) 0.99, Nucleated RBC % 0 11/06/19 05:47: Sodium 137, Potassium 4.8, Chloride 105, Carbon Dioxide 26.0, Anion Gap 6, BUN 29 H, Creatinine 0.97, Estim Creat Clear Calc 59.28, Est GFR (MDRD) Af Amer 72, Est GFR (MDRD) Non-Af 60, BUN/Creatinine Ratio 29.9 H, Glucose 135 H, Calcium 8.3 L, Total Bilirubin 0.30, AST 13 L, ALT 25, Alkaline Phosphatase 124 H, Total Protein 6.1 L, Albumin 2.7 L, Globulin 3.4, Albumin/Globulin Ratio 0.8 L 11/06/19 06:39: POC Glucose 138 H 11/06/19 10:14: POC Glucose 165 H 11/06/19 11:30: Vitamin D 25-Hydroxy Pending 11/06/19 11:54: POC Glucose 285 H Current Medications Acetaminophen (Tylenol) 650 mg PO Q6H PRN PRN PRN Reason: Pain Score 1-10/Temp > 100.7 F Acetaminophen (Tylenol) 1,000 mg PO Q8 [facility] Aspirin (Aspirin, Baby) 81 mg PO BID [facility] Last Admin: 11/06/19 11:59 Dose: 81 mg Documented by: Dextrose (D50w Syringe) 0 gm IV X1 PRN; Protocol PRN Reason: Hypoglycemia Ferrous Sulfate (Ferrous Sulfate) 325 mg PO DAILY@1200 [facility] Last Admin: 11/06/19 12:20 Dose: 325 mg Documented by: Glucagon () 1 mg IM .X1 PRN PRN Reason: Hypoglycemia Hydralazine HCl (Apresoline Iv) 10 mg IV Q6H PRN PRN PRN Reason: BLOOD PRESSURE Last Admin: 11/05/19 16:31 Dose: 10 mg Documented by: Hydromorphone HCl (Dilaudid Inj) 0.5 mg IV Q3H PRN PRN PRN Reason: Pain Score 6-10/10 Last Admin: 11/06/19 04:09 Dose: 0.5 mg Documented by: Hydroxychloroquine Sulfate (Plaquenil) 200 mg PO DAILY [facility] Cefazolin Sodium () 1 gm in 50 mls @ 150 mls/hr IV Q6 [facility] Stop: 11/07/19 00:19 Last Admin: 11/06/19 12:20 Dose: 150 mls/hr Documented by: Lactated Ringer's () 1,000 mls @ 100 mls/hr IV .Q10H [facility] Last Admin: 11/06/19 11:59 Dose: 100 mls/hr Documented by: Insulin Glargine (Lantus (Bk)) 28 units SC DAILY [facility] Last Admin: 11/06/19 11:56 Dose: 28 u Documented by: Insulin Human Lispro (Humalog Kwikpen (Bk)) 0 unit SC ACHS [facility]; Protocol Last Admin: 11/06/19 11:56 Dose: 2 u Documented by: Ondansetron HCl (Zofran) 4 mg IV Q8H PRN PRN PRN Reason: NAUSEA/VOMITING Oxycodone HCl (Oxyir) 5 mg PO Q4H PRN PRN PRN Reason: Pain Score 4-5/10 Last Admin: 11/06/19 12:07 Dose: 5 mg Documented by: Pramipexole Dihydrochloride (Mirapex) 2 mg PO QHS [facility] Last Admin: 11/05/19 21:10 Dose: 2 mg Documented by: Propranolol HCl (Inderal) 20 mg PO BID [facility] Last Admin: 11/06/19 11:57 Dose: 20 mg Documented by: Senna/Docusate Sodium (Senokot-S, Stefany-Colace) 2 tablet PO BID PRN PRN PRN Reason: Constipation Sodium Chloride () 10 - 40 ml IV UD PRN PRN Reason: SALINE FLUSH Last Admin: 11/05/19 15:01 Dose: 10 ml Documented by: STROKE Vital Signs/Narrative: Vital Signs Temp Pulse Resp BP Pulse Ox 11/06/19 10:52 37.1 C 76 16 159/71 H 98 11/06/19 10:28 36.9 C 78 18 172/67 H 97 11/06/19 10:15 64 18 178/72 H 100 11/06/19 10:00 36.6 C 66 16 180/67 H 6 Assessment/Plan Patient seen and examined independently. Data reviewed. I agree with the above note by the physician printing bindery assistant. 1. Acute right nondisplaced subcapital fracture: Status post right hip cemented hemiarthroplasty on November 05. Atraumatic. Osteoporotic. Check 25-hydroxy vitamin D. Weightbearing status per orthopedics. Physical and Occupational Therapy. Anticipate custodial facility placement. Inpatient E&M: [id number] [facility] H[facility] L2
--- NOTE | 2019-11-06 13:40 | CM.UR ---
JOSE CASAS Face to Face with patient for initial transition planning/care coordination assessment. JOSE CASAS introduced self and role at [facility]. Patient sitting in bed, alert and oriented. Patient willing to participate in assessment and is able to answer all questions appropriately. Care providers, pharmacy, and demographics verified. Patient wishes to discharge home at this time, if possible. PCP: Pat Specialists: Razia Fitting Supervisor Preferred Pharmacy: [facility] Insurance: [facility] Prescription Benefit: Yes Living Will/HPOA: yes, Basilio Garcia LNOK: , son Living Arrangements: Patient lives with and son in 2 story home with bed and bath on first floor. 3 steps and railing to enter the home. Patient was independent at home prior to hospitalization. Transportation: DME/HHC: Patient has shower chair, BSC, raised toilet, cane, crutches, grab bars, walker, and wheelchair at home. Patient denies previous HHC or SNF Goal: Home Discharge plan: To be determined post op and pending PT/OT jaya. DAY Elizabeth, CCM.
[2019-11-06] MEDS: Acetaminophen 500 MG Tablet 1000 MG PO ×2 (14:13→20:41)
[2019-11-06 17:01] LABS: Bedside Glucose 460 mg/dL (70-110)
[2019-11-06] MEDS: Insulin Lispro 100 UNIT/ML INSULN.PEN 10 UNIT SC (17:21)
[2019-11-06] MEDS: Pramipexole Di-HCl 1 MG Tablet 2 MG PO (20:41)
[2019-11-06 21:56] LABS: Bedside Glucose 319 mg/dL (70-110)
[2019-11-07] MEDS: Lactated Ringers 1,000 ML 100 ML IV (00:25)
[2019-11-07] MEDS: Cefazolin 1 GM/50 ML BAG IV (00:27)
[2019-11-07 02:58] VITALS: BMI 32.4
[2019-11-07 03:07] VITALS: BP 144/57; PULSE 65; RESP 17; TEMP 37.1; O2SAT 93
[2019-11-07] MEDS: oxyCODONE 5 MG Tablet PO ×3 (04:12→21:16)
[2019-11-07] MEDS: Calcium Carbonate 500 MG Tablet PO (05:20)
[2019-11-07] MEDS: Acetaminophen 500 MG Tablet 1000 MG PO ×3 (06:19→21:16)
[2019-11-07] MEDS: Insulin Lispro 100 UNIT/ML INSULN.PEN SC ×3 (06:20→16:15)
[2019-11-07 06:40] VITALS: BP 137/69; PULSE 78; RESP 17; TEMP 36.9; O2SAT 95; BMI 32.4
[2019-11-07 06:44] LABS: Mean Corp Hgb Conc 32.1 g/dL (32-36); Mean Corpuscular Hgb 28.9 pg (27.0-32.0); Mean Platelet Vol. 9.7 fl (6.2-12.0); Platelet Count 242 K/mm3 (150-450); RBC Distribution Width CV 15.1 % (11.6-14.6); RBC Distribution Width SD 49.2 fl (35.1-43.9); Red Blood Count 3.11 M/mm3 (4.2-5.4); White Blood Count 9.4 K/mm3 (4.4-11.0)
[2019-11-07 06:50] LABS: Bedside Glucose 239 mg/dL (70-110)
[2019-11-07 07:07] LABS: Anion Gap 7 (5-15); BUN 33 mg/dL (7-18); BUN/Creat Ratio 29.7 RATIO (10-20); Calcium,Total 8.3 mg/dL (8.5-10.1); Chloride 105 mmol/L (98-107); Creatinine, Serum 1.11 mg/dL (0.55-1.02); EST Glomerular Filtration Rate 51 mL/min (>60); Est Glom Filt Rate - Afr Amer 62 mL/min (>60); Estimated Creatinine Clearance 53.94 ml/min; Glucose 247 mg/dL (74-106); Potassium 4.5 mmol/L (3.5-5.1); Sodium Level 137 mmol/L (136-145)
[2019-11-07 10:30] VITALS: BP 128/57; PULSE 55; RESP 16; TEMP 36.6; O2SAT 95; BMI 32.4
[2019-11-07] MEDS: Aspirin 81 MG TAB.CHEW PO ×2 (10:37→21:16)
--- NOTE | 2019-11-07 11:13 | PCM.PN.HOSP ---
<Kamlesh York - Last Filed: 11/07/19 11:13> Patient Problems: Active and Suspected Problems Fracture of femur, subcapital, right, closed (Acute) Reason for Visit: hip fx Subjective: Pain improved to 4/10 today. No fever/chills. Pt ambulating with walker. She does not want to go to SNF, she wants to go home with home care. She states her is healthy and will be able to help her at night if she has needs such as with ambulation. No SOB/cough. No fever/chlils. No nausea/vomiting. Tolerating PO intake. No numbness/tingling in the affected extremity. Vitals/I&O's: Vital Signs Temp Pulse Resp BP Pulse Ox 97.8 F 55 L 16 128/57 H 95 11/07/19 10:30 11/07/19 10:30 11/07/19 10:30 11/07/19 10:30 11/07/19 10:30 Oxygen Flow Rate (L/min) 4 Oxygen Delivery Method Room Air Weight: 166 lb 14.239 oz Body Mass Index (BMI) 32.3 Finger Stick Blood Glucose 165 Intake and Output for Last 24 Hours 11/05/19 11/06/19 11/07/19 23:59 23:59 23:59 Intake Total 500 / 860 4214.08 / 4214.08 663.33 / 663.33 Output Total 1025 / 1025 1050 / 1050 800 / 800 Balance -525 / -165 3164.08 / 3164.08 -136.67 / -136.67 General: Alert, Oriented x3, Cooperative HEENT: Atraumatic, PERRLA, EOMI, Normocephalic Neck: Supple, No JVD, Negative Carotid Bruits Lungs: Clear to auscultation, Normal air movement Cardiovascular: Regular rate, No murmurs Abdomen: Bowel Sounds Present, Soft, Non Tender Extremities: No edema, Capillary Refill Less than 3 Seconds Skin: No rashes, No breakdown Musculoskeletal: No Tenderness to Palpation of Joints or Extremities Neurological: Cranial nerves II-XII grossly intact Psych/Mental Status: Normal Affect, Appropriate, Alert and oriented to time, place, person, mood and affect Laboratory Results 11/06/19 11:30: Vitamin D 25-Hydroxy Pending 11/06/19 11:54: POC Glucose 285 H 11/06/19 16:48: POC Glucose 460 H* 11/06/19 20:37: POC Glucose 319 H 11/07/19 05:40: WBC 9.4, RBC 3.11 L, Hgb 9.0 L, Hct 28.0 L, MCV 90.0, MCH 28.9, MCHC 32.1, RDW Std Deviation 49.2 H, RDW Coeff of Fady 15.1 H, Plt Count 242, MPV 9.7 11/07/19 05:40: Sodium 137, Potassium 4.5, Chloride 105, Carbon Dioxide 25.0, Anion Gap 7, BUN 33 H, Creatinine 1.11 H, Estim Creat Clear Calc 53.94, Est GFR (MDRD) Af Amer 62, Est GFR (MDRD) Non-Af 51 L, BUN/Creatinine Ratio 29.7 H, Glucose 247 H, Calcium 8.3 L 11/07/19 06:15: POC Glucose 239 H Current Medications Acetaminophen (Tylenol) 650 mg PO Q6H PRN PRN PRN Reason: Pain Score 1-10/Temp > 100.7 F Acetaminophen (Tylenol) 1,000 mg PO Q8 COUNTS INCLUDE 234 BEDS AT THE [facility] Last Admin: 11/07/19 06:19 Dose: 1,000 mg Documented by: Aspirin (Aspirin, Baby) 81 mg PO BID COUNTS INCLUDE 234 BEDS AT THE [facility] Last Admin: 11/07/19 10:37 Dose: 81 mg Documented by: Calcium Carbonate (Tums) 500 mg PO Q4H PRN PRN PRN Reason: HEARTBURN Last Admin: 11/07/19 05:20 Dose: 500 mg Documented by: Dextrose (D50w Syringe) 0 gm IV X1 PRN; Protocol PRN Reason: Hypoglycemia Ferrous Sulfate (Ferrous Sulfate) 325 mg PO DAILY@1200 COUNTS INCLUDE 234 BEDS AT THE [facility] Last Admin: 11/06/19 12:20 Dose: 325 mg Documented by: Glucagon () 1 mg IM .X1 PRN PRN Reason: Hypoglycemia Hydralazine HCl (Apresoline Iv) 10 mg IV Q6H PRN PRN PRN Reason: BLOOD PRESSURE Last Admin: 11/05/19 16:31 Dose: 10 mg Documented by: Hydromorphone HCl (Dilaudid Inj) 0.5 mg IV Q3H PRN PRN PRN Reason: Pain Score 6-10/10 Last Admin: 11/06/19 20:29 Dose: 0.5 mg Documented by: Hydroxychloroquine Sulfate (Plaquenil) 200 mg PO DAILY COUNTS INCLUDE 234 BEDS AT THE [facility] Lactated Ringer's () 1,000 mls @ 100 mls/hr IV .Q10H COUNTS INCLUDE 234 BEDS AT THE [facility] Last Infusion: 11/07/19 00:47 Dose: 100 mls/hr Documented by: Insulin Glargine (Lantus ([facility])) 28 units SC DAILY COUNTS INCLUDE 234 BEDS AT THE [facility] Last Admin: 11/07/19 10:38 Dose: 28 u Documented by: Insulin Human Lispro (Humalog Kwikpen ([facility])) 0 unit SC ACHS COUNTS INCLUDE 234 BEDS AT THE [facility]; Protocol Last Admin: 11/07/19 06:20 Dose: 2 u Documented by: Ondansetron HCl (Zofran) 4 mg IV Q8H PRN PRN PRN Reason: NAUSEA/VOMITING Oxycodone HCl (Oxyir) 5 mg PO Q4H PRN PRN PRN Reason: Pain Score 4-5/10 Last Admin: 11/07/19 04:12 Dose: 5 mg Documented by: Pramipexole Dihydrochloride (Mirapex) 2 mg PO QHS COUNTS INCLUDE 234 BEDS AT THE [facility] Last Admin: 11/06/19 20:41 Dose: 2 mg Documented by: Propranolol HCl (Inderal) 20 mg PO BID COUNTS INCLUDE 234 BEDS AT THE [facility] Last Admin: 11/07/19 10:36 Dose: Not Given Documented by: Senna/Docusate Sodium (Senokot-S, Stefany-Colace) 2 tablet PO BID PRN PRN PRN Reason: Constipation Sodium Chloride () 10 - 40 ml IV UD PRN PRN Reason: SALINE FLUSH Last Admin: 11/05/19 15:01 Dose: 10 ml Documented by: STROKE Vital Signs/Narrative: Vital Signs Temp Pulse Resp BP Pulse Ox 11/07/19 10:30 97.8 F 55 L 16 128/57 H 95 Medical Necessity - Tobacco Use Smoking Status: Never smoker Tobacco Use: Non-smoker Assessment/Plan All Active Problems Open wound of left lower extremity (Acute) Ulcer of right lower extremity with fat layer exposed (Resolved) Femoral neck fracture (Acute) Dermatitis (Resolved) Fracture of femur, subcapital, right, closed (Acute) 1. Acute right nondisplaced subcapital fracture - Post op D#1. care per Dr. Karimi. Pt doing well. Ambulating with walker. Continue PTOT. Mild decrease in Hgb, check in AM. 2. RA - plaquenil, not on mtx. 3. DMt2 - SSI, lantus. hold glimeperide. elevated glucose overnight but improving now, will resume glimeperide. 4. CKDIII - stable. 5. Chronic venous stasis with RLE venous ulcer, - healing. f/u as directed with wound care center. DVT ppx: per ortho: asa 81 BID DC Planning: [facility] This patient was seen by Kamlesh York PA-C under the supervision of Dr. Kelly <Marco Antonio Kelly - Last Filed: 11/07/19 11:50> Subjective: Feels well today. Pain well managed. Vitals/I&O's: Vital Signs Temp Pulse Resp BP Pulse Ox 36.6 C 55 L 16 128/57 H 95 11/07/19 10:30 11/07/19 10:30 11/07/19 10:30 11/07/19 10:30 11/07/19 10:30 Oxygen Flow Rate (L/min) 4 Oxygen Delivery Method Room Air Weight: 75.7 kg Body Mass Index (BMI) 32.3 Finger Stick Blood Glucose 165 Intake and Output for Last 24 Hours 11/05/19 11/06/19 11/07/19 23:59 23:59 23:59 Intake Total 500 / 860 4214.08 / 4214.08 663.33 / 663.33 Output Total 1025 / 1025 1050 / 1050 800 / 800 Balance -525 / -165 3164.08 / 3164.08 -136.67 / -136.67 General: Alert, Cooperative HEENT: Atraumatic, Normocephalic Neck: No Nodes, Trachea Midline Lungs: Clear to auscultation, Normal air movement, No rhonchi, No wheeze Cardiovascular: Regular rate, No murmurs Abdomen: Bowel Sounds Present, Soft, Non Tender, Non-Distended Extremities: No edema, No Calf Tenderness Skin: No rashes, No breakdown Neurological: Cranial nerves II-XII grossly intact Psych/Mental Status: Normal Affect, Appropriate Laboratory Results 11/06/19 11:30: Vitamin D 25-Hydroxy Pending 11/06/19 11:54: POC Glucose 285 H 11/06/19 16:48: POC Glucose 460 H* 11/06/19 20:37: POC Glucose 319 H 11/07/19 05:40: WBC 9.4, RBC 3.11 L, Hgb 9.0 L, Hct 28.0 L, MCV 90.0, MCH 28.9, MCHC 32.1, RDW Std Deviation 49.2 H, RDW Coeff of Fady 15.1 H, Plt Count 242, MPV 9.7 11/07/19 05:40: Sodium 137, Potassium 4.5, Chloride 105, Carbon Dioxide 25.0, Anion Gap 7, BUN 33 H, Creatinine 1.11 H, Estim Creat Clear Calc 53.94, Est GFR (MDRD) Af Amer 62, Est GFR (MDRD) Non-Af 51 L, BUN/Creatinine Ratio 29.7 H, Glucose 247 H, Calcium 8.3 L 11/07/19 06:15: POC Glucose 239 H Current Medications Acetaminophen (Tylenol) 650 mg PO Q6H PRN PRN PRN Reason: Pain Score 1-10/Temp > 100.7 F Acetaminophen (Tylenol) 1,000 mg PO Q8 COUNTS INCLUDE 234 BEDS AT THE [facility] Last Admin: 11/07/19 06:19 Dose: 1,000 mg Documented by: Aspirin (Aspirin, Baby) 81 mg PO BID COUNTS INCLUDE 234 BEDS AT THE [facility] Last Admin: 11/07/19 10:37 Dose: 81 mg Documented by: Calcium Carbonate (Tums) 500 mg PO Q4H PRN PRN PRN Reason: HEARTBURN Last Admin: 11/07/19 05:20 Dose: 500 mg Documented by: Dextrose (D50w Syringe) 0 gm IV X1 PRN; Protocol PRN Reason: Hypoglycemia Ferrous Sulfate (Ferrous Sulfate) 325 mg PO DAILY@1200 COUNTS INCLUDE 234 BEDS AT [facility] Last Admin: 11/06/19 12:20 Dose: 325 mg Documented by: Glimepiride (Amaryl) 0.5 mg PO DAILY COUNTS INCLUDE 234 BEDS AT THE [facility] Glucagon () 1 mg IM .X1 PRN PRN Reason: Hypoglycemia Hydralazine HCl (Apresoline Iv) 10 mg IV Q6H PRN PRN PRN Reason: BLOOD PRESSURE Last Admin: 11/05/19 16:31 Dose: 10 mg Documented by: Hydromorphone HCl (Dilaudid Inj) 0.5 mg IV Q3H PRN PRN PRN Reason: Pain Score 6-10/10 Last Admin: 11/06/19 20:29 Dose: 0.5 mg Documented by: Hydroxychloroquine Sulfate (Plaquenil) 200 mg PO DAILY COUNTS INCLUDE 234 BEDS AT THE [facility] Lactated Ringer's () 1,000 mls @ 100 mls/hr IV .Q10H COUNTS INCLUDE 234 BEDS AT THE [facility] Last Infusion: 11/07/19 00:47 Dose: 100 mls/hr Documented by: Insulin Glargine (Lantus ([facility])) 28 units SC DAILY COUNTS INCLUDE 234 BEDS AT THE [facility] Last Admin: 11/07/19 10:38 Dose: 28 u Documented by: Insulin Human Lispro (Humalog Kwikpen ([facility])) 0 unit SC ACHS COUNTS INCLUDE 234 BEDS AT THE [facility]; Protocol Last Admin: 11/07/19 06:20 Dose: 2 u Documented by: Ondansetron HCl (Zofran) 4 mg IV Q8H PRN PRN PRN Reason: NAUSEA/VOMITING Oxycodone HCl (Oxyir) 5 mg PO Q4H PRN PRN PRN Reason: Pain Score 4-5/10 Last Admin: 11/07/19 04:12 Dose: 5 mg Documented by: Pramipexole Dihydrochloride (Mirapex) 2 mg PO QHS COUNTS INCLUDE 234 BEDS AT THE [facility] Last Admin: 11/06/19 20:41 Dose: 2 mg Documented by: Propranolol HCl (Inderal) 20 mg PO BID COUNTS INCLUDE 234 BEDS AT THE [facility] Last Admin: 11/07/19 10:36 Dose: Not Given Documented by: Senna/Docusate Sodium (Senokot-S, Stefany-Colace) 2 tablet PO BID PRN PRN PRN Reason: Constipation Sodium Chloride () 10 - 40 ml IV UD PRN PRN Reason: SALINE FLUSH Last Admin: 11/05/19 15:01 Dose: 10 ml Documented by: STROKE Vital Signs/Narrative: Vital Signs Temp Pulse Resp BP Pulse Ox 11/07/19 10:30 36.6 C 55 L 16 128/57 H 95 Assessment/Plan Patient seen and examined independently. Data reviewed. I agree with the above note by the physician phys assistant. 1. Acute right nondisplaced subcapital fracture: Status post right hip cemented hemiarthroplasty on November 05. Atraumatic. Osteoporotic. 25-hydroxy vitamin D level pending. Goal level is 50. weight bearing as tolerated evaluated by PT who recommends home health 2. VTE prophylaxis: ASA 81 BID for 10-14 days or when patient is fully mobile, which ever comes last. Inpatient E&M: 20642 Subs Hosp L2
[2019-11-07] MEDS: Ferrous Sulfate 325 MG Tablet PO (11:40)
[2019-11-07 11:55] LABS: Bedside Glucose 260 mg/dL (70-110)
[2019-11-07] MEDS: Glimepiride 1 MG Tablet 0.5 MG PO (13:27)
[2019-11-07 14:58] VITALS: BP 151/92; PULSE 58; RESP 16; TEMP 37.1; O2SAT 97
[2019-11-07 15:01] VITALS: BMI 32.4
[2019-11-07] MEDS: Hydroxychloroquine 200 MG Tablet 300 MG PO (15:10)
[2019-11-07 16:31] LABS: Bedside Glucose 182 mg/dL (70-110)
[2019-11-07 20:01] VITALS: BP 126/57; PULSE 75; RESP 17; TEMP 37.2; O2SAT 97
[2019-11-07] MEDS: Propranolol 10 MG Tablet 20 MG PO (21:16)
[2019-11-07] MEDS: Pramipexole Di-HCl 1 MG Tablet 2 MG PO (21:16)
[2019-11-07 23:01] LABS: Bedside Glucose 110 mg/dL (70-110)
[2019-11-08 02:09] VITALS: BP 125/67; PULSE 65; RESP 17; TEMP 36.6; O2SAT 97
[2019-11-08] MEDS: oxyCODONE 5 MG Tablet PO ×3 (03:34→13:59)
[2019-11-08 05:29] LABS: Hematocrit 28.6 % (37-47); Hemoglobin 8.9 g/dL (12.0-15.0); Mean Corp Hgb Conc 31.1 g/dL (32-36); Mean Corpuscular Hgb 28.7 pg (27.0-32.0); Mean Corpuscular Volume 92.3 fL (81-99); Mean Platelet Vol. 9.1 fl (6.2-12.0); Platelet Count 234 K/mm3 (150-450); RBC Distribution Width CV 15.3 % (11.6-14.6); RBC Distribution Width SD 51.8 fl (35.1-43.9); White Blood Count 6.2 K/mm3 (4.4-11.0)
[2019-11-08 06:56] LABS: Bedside Glucose 88 mg/dL (70-110)
[2019-11-08] MEDS: Acetaminophen 500 MG Tablet 1000 MG PO ×2 (07:02→14:00)
[2019-11-08 08:25] LABS: Vitamin D,25 Hydroxy 27.9 ng/mL
[2019-11-08 08:41] VITALS: BP 142/53; PULSE 75; RESP 18; TEMP 37.1; O2SAT 95
[2019-11-08] MEDS: Glimepiride 1 MG Tablet 0.5 MG PO (08:52)
[2019-11-08] MEDS: Senna/Docusate Sodium 1 Tablet 2 TABLET PO (08:52)
[2019-11-08] MEDS: Calcium Carbonate 500 MG Tablet PO (08:52)
--- NOTE | 2019-11-08 09:32 | CASEMGMT ---
Addendum entered by Precious Page 11/08/19 13:08: Covid transfer tool faxed to [facility] at this time. Colin GARCIA CM Original Note: This RN CM to room to discuss discharge plan with pt at this time and pt states that she would like to go home with [facility]. Pt states has had HHC in the past after she was admitted to [facility] s/p hip fx but she cannot remember name of company at this time. This RN CM offered list of in-network HHC agencies but pt states she would just like [facility] at this time. Order for [facility] PT/OT placed at this time and call to Myriam at [facility] to notify of referral, voices understanding. Pt states has all needed equipment at home from previous hip fx about 2 months ago. pt states no concerns with going home at time of discharge. Pt voices no further questions/concerns/needs at this time. Colin GARCIA CM
[2019-11-08] MEDS: Aspirin 81 MG TAB.CHEW PO (10:30)
[2019-11-08] MEDS: Hydroxychloroquine 200 MG Tablet 300 MG PO (10:30)
[2019-11-08] MEDS: Propranolol 10 MG Tablet 20 MG PO (10:30)
--- NOTE | 2019-11-08 11:13 | PCM.DC ---
- Discharge Diagnoses Current Active Problems: Current Active and Chronic Problems Rheumatoid arthritis (Chronic) CKD (chronic kidney disease), stage III (Chronic) Fracture of femur, subcapital, right, closed (Acute) You will use the following diet at home:: Calorie/Carbohydrate Controlled (specify 1200, 1400, etc) - 1800 jensen / day, Cardiac Your food should be the consistency of: Regular Your liquids should be the consistency of: Regular/Thin Discharge Activity: Return to Normal Activity Allergies/Adverse Reactions: Allergies No Known Allergies Allergy (Verified 09/07/19 14:49) Medications to take at Discharge Ferrous Sulfate [Iron] 325 mg PO DAILY 08/14/17 Pramipexole Di-HCl [Mirapex] 2 mg PO QHS 08/14/17 Propranolol HCl 20 mg PO BID 10/28/18 Hydroxychloroquine Sulfate [Plaquenil] 200 mg PO DAILY 09/07/19 Insulin Detemir [Levemir FlexPen] 28 units SUBCUT DAILY 09/07/19 Furosemide [Lasix] 40 mg PO DAILY 11/05/19 Glimepiride 0.5 mg PO DAILY 11/05/19 Acetaminophen [Tylenol] 1,000 mg PO Q8 tablet 11/08/19 Aspirin [Aspirin, Baby] 81 mg PO BID tab.chew 11/08/19 Oxycodone [Oxyir] 5 mg PO Q4H PRN PRN 3 Days #18 tablet 11/08/19 Senna/Docusate Sodium [Senokot-S] 2 tablet PO BID PRN PRN #0 tablet 11/08/19 The following prescriptions were given: Oxycodone [Oxyir] 5 mg PO Q4H PRN PRN 3 Days #18 tablet PRN Reason: Pain Score 4-5/10 Transmission Status: Sent to [facility] Primary Care Physician: Leonard Stewart DO [Primary Care Provider] - Please follow up with your Primary Care Physician in: 1-2 weeks Test Results: Test results from this visit will be discussed in further detail at your follow-up appointment, if applicable. Please Follow Up With: Sourav Karimi MD When: 2 weeks Proposed Discharge Date: 11/08/19
[2019-11-08] MEDS: Insulin Lispro 100 UNIT/ML INSULN.PEN SC (12:07)
[2019-11-08] MEDS: Ferrous Sulfate 325 MG Tablet PO (12:08)
[2019-11-08 12:35] LABS: Bedside Glucose 244 mg/dL (70-110)
[2019-11-08 13:48] VITALS: BP 145/52; PULSE 60; RESP 18; TEMP 37.2; O2SAT 95
--- NOTE | 2019-11-08 14:02 | DS.PCM_ITS ---
Discharge Date and Diagnosis - Problem List Patient Problems: Active and Suspected Problems Fracture of femur, subcapital, right, closed (Acute) Date of Admission: 11/05/19 Date of Discharge: 11/08/19 - Primary Discharge Diagnosis Active and Suspected Problems Fracture of femur, subcapital, right, closed (Acute) 2/2 Osteoporosis Chronic normocytic anemia DMt2 Rheumatoid arthritis CKDIII Chronic venous stasis with RLE venous ulcer - Secondary Discharge Diagnosis Chronic Problems Venous stasis dermatitis of both lower extremities (Chronic) Venous stasis ulcer of right lower leg with edema of right lower leg (Chronic) T2DM (type 2 diabetes mellitus) (Chronic) Rheumatoid arthritis (Chronic) CKD (chronic kidney disease), stage III (Chronic) Edema of both lower extremities (Chronic) Hospital Course and Treatment Imaging Results: RAD/Pelvis 1 or 2 Views IMPRESSION: Nondisplaced impacted right subcapital fracture. Status post left total hip replacement. RAD/Femur Min 2 Views IMPRESSION: Nondisplaced impacted subcapital fracture. RAD/Chest 1 View IMPRESSION: No acute abnormality is seen. RAD/Hip Min 2 Views (Portable) IMPRESSION: Right hip replacement. Consults: Orthopedics - Trev Operations: - - left hip cemented hemiarthroplasty Procedures: None Summary of Care Provided: Hospital course: The patient is a 74 year old F with pmhx as above notably recent atraumatic left hip fracture approximately 2 months prior treated by Dr. Karimi, who presented to the emergency room with right hip pain. This began when she was walking down a flight of stairs, she felt a crack in her hip and had severe pain, inability to further ambulate. She was brought to the emergency room and found to have a right subcapital fracture. Orthopedics was consulted and she was taken for surgery the following day. She tolerated the procedure well and was able to ambulate the same day. She was previously ambulating with a walker and was able to do so after this surgery as well. Patient had good pain control. She had a mild decrease in her hemoglobin however she has underlying chronic anemia and did not have a market decrease from her baseline. She was given 81 mg aspirin twice daily for DVT prophylaxis. She is weightbearing as tolerated. We will arrange for her to have outpatient home health care for further ongoing PT and OT. She was discharged home with home health care in stable condition. She will need to follow-up with orthopedics in 2 weeks, Follow-up with her PCP in 1 to 2 weeks. As this is her second fracture this year with minimal trauma on this fracture, no trauma at all on the initial fracture 2 months prior she likely has underlying osteoporosis and will need to pursue outpatient treatment for this, discussed with PCP at follow-up. She does have low vitamin D, I have ordered vitamin D replacement therapy for her at discharge. Corrected calcium was normal. This patient was seen by Kamlesh York PA-C under the supervision of Doctor Oz. [] Patient Problems: Active and Suspected Problems Fracture of femur, subcapital, right, closed (Acute) - Physical Exam Vitals/I&O's: Vital Signs Temp Pulse Resp BP Pulse Ox 98.9 F 60 18 145/52 H 95 11/08/19 13:48 11/08/19 13:48 11/08/19 13:48 11/08/19 13:48 11/08/19 13:48 Oxygen Flow Rate (L/min) 4 Oxygen Delivery Method Room Air Weight: 164 lb 14.492 oz Body Mass Index (BMI) 32.3 Finger Stick Blood Glucose 165 Intake and Output for Last 24 Hours 11/06/19 11/07/19 11/08/19 23:59 23:59 23:59 Intake Total 4214.08 / 4214.08 1660.00 / 1660.00 960 / 960 Output Total 1050 / 1050 800 / 800 Balance 3164.08 / 3164.08 860.00 / 860.00 960 / 960 General: Alert, Oriented x3, Cooperative HEENT: Atraumatic, PERRLA, EOMI, Normocephalic Neck: Supple, No JVD, Negative Carotid Bruits Lungs: Clear to auscultation, Normal air movement Cardiovascular: Regular rate, No murmurs Abdomen: Bowel Sounds Present, Soft, Non Tender Extremities: No edema, Capillary Refill Less than 3 Seconds Skin: No rashes, No breakdown Musculoskeletal: No Tenderness to Palpation of Joints or Extremities Neurological: Cranial nerves II-XII grossly intact Psych/Mental Status: Normal Affect, Appropriate Laboratory Results 11/06/19 11:30: Vitamin D 25-Hydroxy 27.9 11/07/19 16:13: POC Glucose 182 H 11/07/19 21:15: POC Glucose 110 11/08/19 05:10: WBC 6.2, RBC 3.10 L, Hgb 8.9 L, Hct 28.6 L, MCV 92.3, MCH 28.7, MCHC 31.1 L, RDW Std Deviation 51.8 H, RDW Coeff of Fady 15.3 H, Plt Count 234, MPV 9.1 11/08/19 06:51: POC Glucose 88 11/08/19 12:02: POC Glucose 244 H Current Medications Acetaminophen (Tylenol) 650 mg PO Q6H PRN PRN PRN Reason: Pain Score 1-10/Temp > 100.7 F Acetaminophen (Tylenol) 1,000 mg PO Q8 [facility] Last Admin: 11/08/19 14:00 Dose: 1,000 mg Documented by: Aspirin (Aspirin, Baby) 81 mg PO BID [facility] Last Admin: 11/08/19 10:30 Dose: 81 mg Documented by: Calcium Carbonate (Tums) 500 mg PO Q4H PRN PRN PRN Reason: HEARTBURN Last Admin: 11/08/19 08:52 Dose: 500 mg Documented by: Dextrose (D50w Syringe) 0 gm IV X1 PRN; Protocol PRN Reason: Hypoglycemia Ferrous Sulfate (Ferrous Sulfate) 325 mg PO DAILY@1200 [facility] Last Admin: 11/08/19 12:08 Dose: 325 mg Documented by: Glimepiride (Amaryl) 0.5 mg PO BREAKFAST [facility] Last Admin: 11/08/19 08:52 Dose: 0.5 mg Documented by: Glucagon () 1 mg IM .X1 PRN PRN Reason: Hypoglycemia Hydralazine HCl (Apresoline Iv) 10 mg IV Q6H PRN PRN PRN Reason: BLOOD PRESSURE Last Admin: 11/05/19 16:31 Dose: 10 mg Documented by: Hydromorphone HCl (Dilaudid Inj) 0.5 mg IV Q3H PRN PRN PRN Reason: Pain Score 6-10/10 Last Admin: 11/06/19 20:29 Dose: 0.5 mg Documented by: Hydroxychloroquine Sulfate (Plaquenil) 300 mg PO DAILY [facility] Last Admin: 11/08/19 10:30 Dose: 300 mg Documented by: Insulin Glargine (Lantus (Bk)) 28 units SC DAILY [facility] Last Admin: 11/08/19 10:30 Dose: 28 u Documented by: Insulin Human Lispro (Humalog Kwikpen ([facility])) 0 unit SC [facility]; Protocol Last Admin: 11/08/19 12:07 Dose: 2 u Documented by: Ondansetron HCl (Zofran) 4 mg IV Q8H PRN PRN PRN Reason: NAUSEA/VOMITING Oxycodone HCl (Oxyir) 5 mg PO Q4H PRN PRN PRN Reason: Pain Score 4-5/10 Last Admin: 11/08/19 13:59 Dose: 5 mg Documented by: Pramipexole Dihydrochloride (Mirapex) 2 mg PO QHS [facility] Last Admin: 11/07/19 21:16 Dose: 2 mg Documented by: Propranolol HCl (Inderal) 20 mg PO BID [facility] Last Admin: 11/08/19 10:30 Dose: 20 mg Documented by: Senna/Docusate Sodium (Senokot-S, Stefany-Colace) 2 tablet PO BID PRN PRN PRN Reason: Constipation Last Admin: 11/08/19 08:52 Dose: 2 tablet Documented by: Sodium Chloride () 10 - 40 ml IV UD PRN PRN Reason: SALINE FLUSH Last Admin: 11/05/19 15:01 Dose: 10 ml Documented by: Discharge Diet: Low fat/ Low Cholesterol, 1800 Calorie Control Diet, 2000 mg Sodium Diet Discharge Activity: Return to Normal Activity Home Medications: Medications to take at Discharge Ferrous Sulfate [Iron] 325 mg PO DAILY 08/14/17 Pramipexole Di-HCl [Mirapex] 2 mg PO QHS 08/14/17 Propranolol HCl 20 mg PO BID 10/28/18 Hydroxychloroquine Sulfate [Plaquenil] 200 mg PO DAILY 09/07/19 Insulin Detemir [Levemir FlexPen] 28 units SUBCUT DAILY 09/07/19 Furosemide [Lasix] 40 mg PO DAILY 11/05/19 Glimepiride 0.5 mg PO DAILY 11/05/19 Acetaminophen [Tylenol] 1,000 mg PO Q8 tab 11/08/19 Aspirin [Aspirin, Baby] 81 mg PO BID tab.chew 11/08/19 Oxycodone [Oxyir] 5 mg PO Q4H PRN PRN 3 Days #18 tab 11/08/19 Senna/Docusate Sodium [Senokot-S] 2 tab PO BID PRN PRN #0 tab 11/08/19 Following Prescrptions Were Given to Patient: Oxycodone [Oxyir] 5 mg PO Q4H PRN PRN 3 Days #18 tab PRN Reason: Pain Score 4-5/10 Transmission Status: Received by [facility] Primary Care Physician: Leonard Stewart DO [Primary Care Provider] - Please follow up with your Primary Care Physician in: 1-2 weeks Please Follow Up With: Sourav Karimi MD When: 2 weeks Disposition: Home with Home Health Minutes spent on discharge:: 35 Patient Condition:: Stable Medical Necessity - Tobacco Use Smoking Status: Never smoker Tobacco Use: Non-smoker Meaningful Use Info Meaningful Use Diagnoses (Choose all that apply): None applicable
--- NOTE | 2019-11-08 14:50 | CHAPLAIN ---
Type of Pastoral Visit _x__ Initial Visit ___ Follow-up Visit ___ On-call Visit ___ General Patient Visit ___ Spiritual Assessment ___ Family Conference ___ Bereavement ___ Rapid Response ___ Code Blue ___ Other (describe below) Pastoral Care Referral From _x__ Patient ___ Family ___ Nurse ___ Physician ___ Traffic Survey Technician ___ Boat Loader Helper ___ Other (describe below) Sacrament/Intervention _x__ Active listening ___ Anointing ___ Mormon ___ Bereavement ___ Communion _x__ Jessica exploration ___ ___ Life review _x__ Prayer ___ Reconciliation ___ Sacrament of Sick _x__ Supportive presence ___ Wedding ___ Other (describe below) Pastoral Comments
== END 2019-11-08 15:41 | disposition home or self-care (01) | DRG 470 ==
LOC: ED 14:11 → PCU 14:20
PROVIDERS: Orthopaedic Surgery; Admitting Provider Internal Medicine; Emergency Provider Physician Assistant Medical; PCP Family Medicine; Visit Provider Internal Medicine
PROC: (CPT 27125; principal; 2019-11-06 07:10)
DX: S72.011A Unspecified intracapsular fracture of right femur, initial encounter for closed fracture (principal); L97.912 Non-pressure chronic ulcer of unspecified part of right lower leg with fat layer exposed; E11.622 Type 2 diabetes mellitus with other skin ulcer; I87.2 Venous insufficiency (chronic) (peripheral); D50.0 Iron deficiency anemia secondary to blood loss (chronic); M06.9 Rheumatoid arthritis, unspecified; M81.0 Age-related osteoporosis without current pathological fracture; X58.XXXA Exposure to other specified factors, initial encounter; Y93.01 Activity, walking, marching and hiking; Y92.9 Unspecified place or not applicable; E11.22 Type 2 diabetes mellitus with diabetic chronic kidney disease; I12.9 Hypertensive chronic kidney disease with stage 1 through stage 4 chronic kidney disease, or unspecified chronic kidney disease; N18.3 Chronic kidney disease, stage 3 (moderate); Z79.4 Long term (current) use of insulin; Z79.82 Long term (current) use of aspirin; Z79.84 Long term (current) use of oral hypoglycemic drugs; Z79.899 Other long term (current) drug therapy; Z09 Encounter for follow-up examination after completed treatment for conditions other than malignant neoplasm
CPT/HCPCS: 36415; 71045; 72170; 73502; 73552; 80048; 80053; 80076; 82306; 82962; 85025; 85027; 88305; 88311; 93005; 97163; 97166; 99212; 99251; 99285; C1776; J7030; J7040; J7120; A4216; G0463; J2405

== ENCOUNTER → 2019-12-31 15:33 | Outpatient (CLI) | payer MEDICARE, OTHER, SELFPAY ==
[2019-11-05 14:51] VITALS: BMI 32.3
[2019-12-31 17:51] LABS: Absolute Lymphocyte Count 1.66 X10^3/uL (0.83-4.51); Absolute Neutrophil Count 4.2 X10^3/uL (2.0-7.7); Basophil# 0.05 X10^3/uL; Basophil% 0.7 % (0-1); Eosinophils% 5.8 % (0-5); Hematocrit 35.7 % (37-47); Hemoglobin 10.9 g/dL (12.0-15.0); Lymphocyte # 1.66 X10^3/ul (4.0); Mean Corp Hgb Conc 30.5 g/dL (32-36); Mean Corpuscular Hgb 28.7 pg (27.0-32.0); Mean Corpuscular Volume 93.9 fL (81-99); Mean Platelet Vol. 9.2 fl (6.2-12.0); Monocyte% 8.7 % (0-10); NRBC Flagged by Analyzer 0 % (0-5); Neutrophil # 4.19 X10^3/uL (2.7-7.7); Neutrophil % 60.5 % (47-70); Platelet Count 405 K/mm3 (150-450); RBC Distribution Width CV 14.3 % (11.6-14.6); RBC Distribution Width SD 49.5 fl (35.1-43.9); White Blood Count 6.9 K/mm3 (4.4-11.0)
[2019-12-31 18:12] LABS: ALB/GLOB Ratio 0.9 RATIO (0.9-2.4); AST(SGOT) 14 U/L (15-37); Alanine Aminotransfer ALT/SGPT 31 U/L (13-56); Albumin, Serum 3.5 g/dL (3.2-5.0); Alkaline Phosphatase 186 U/L (45-117); Anion Gap 8 (5-15); BUN 47 mg/dL (7-18); BUN/Creat Ratio 35.3 RATIO (10-20); Calcium,Total 8.4 mg/dL (8.5-10.1); Chloride 103 mmol/L (98-107); Creatinine, Serum 1.33 mg/dL (0.55-1.02); EST Glomerular Filtration Rate 42 mL/min (>60); Est Glom Filt Rate - Afr Amer 50 mL/min (>60); Globulin 4.1 g/dL (2.2-4.2); Glucose 222 mg/dL (74-106); Potassium 4.8 mmol/L (3.5-5.1); Protein, Total 7.6 g/dL (6.4-8.2); Sodium Level 136 mmol/L (136-145)
== END ==
PROVIDERS: PCP Family Medicine; Referring Provider Internal Medicine Rheumatology; Visit Provider Internal Medicine Rheumatology
DX: M06.4 Inflammatory polyarthropathy (principal); Z79.899 Other long term (current) drug therapy; M15.9 Polyosteoarthritis, unspecified; M17.0 Bilateral primary osteoarthritis of knee; M21.40 Flat foot [pes planus] (acquired), unspecified foot; M19.172 Post-traumatic osteoarthritis, left ankle and foot; M48.061 Spinal stenosis, lumbar region without neurogenic claudication; E11.9 Type 2 diabetes mellitus without complications; G25.81 Restless legs syndrome
CPT/HCPCS: 36415; 80053; 85025

== ENCOUNTER 2020-01-17 16:00 | Outpatient (RCR) | payer MEDICARE, OTHER, SELFPAY ==
[2019-11-05 14:51] VITALS: BMI 32.3
--- NOTE | 2019-12-15 14:40 | HP.OTEVAL_ITS ---
Patient's Visit Information CASANDRA JONES is a 74 year old F, referred to Occupational Therapy by Dr. Leonard Stewart DO, with a diagnosis of lymphedema. Date of Evaluation: 12/15/19 Occupational Therapist: Myriam Whitt, TIMOTHYR/Glynn, CHT - Subjective THis 74 year old female was seen for OT eval with dx of lymphedema. 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 pt states she has struggled with swelling since this fall. Pt states rash, blisters and swelling. Pt states she does sit more in the winter but out in the spring and summer. Pt states when she gets up in the am swelling is better. Pt states she uses Cecilia lotion on her LE. Pt states her son ordered a compression pump thigh high for her but she has not recived it yet. - Pain right LE 0 Pain Intensity Range: 4 - Lymphedema (Circumferential Measure) Ankle: Right 26cm left 28cm Lower calf: right 28cm left 27cm Largest calf: right 40cm left 35cm Below knee: right 38cm left 33cm Above knee: right 49cm left 45cm Mid-thigh: right 58cm left 57cm Groin: right 60cm left 57cm - Lower Limb Functional Index Lower Extremity Functional Score: 37 - Goals Demonstrate a 20% reduction in edema by d/c: Yes Demonstrate adequate knowledge of self-massage by 2nd week: Yes Demonstrate adequate knowledge skin care/prec by 2nd week: Yes Demonstrate adequate knowledge therapeutic exercises by d/c: Yes Select approp compression garment w/donning/care/wear by d/c: Yes Voice need to replace compression garment every 4-6mo by dc: Yes - Rehabilitation General Assessment: pt demo with swelling in BLE more in right than left- pt limited with ability to put compression socks and is limited with ambulation due to paunful LE when pt up and walking. Pt would benefit from skilled OT services 2-3 visits to ensure pts understanding of using compression garments 20-30mmHg, lymph stim ex. and skin care precautions. Today therapist ec.on dx and lymph stim ex, skin care. pt demo understanding and was given handout. Therapist ed. pt on where she can get compression socks 20-30mmHg. pt demo understanding. pt to return in 2 weeks to review HEP and therapist can check on compression gament fit and use pt agree with POC Rehabilitation Potential: Good - Anticipated Interventions Education re assistive Equipment, Education re Diagnosis, Manual Lymph Drainage, Education re Life-long lymphedema Management, Education re Skin Care and Precautions, Education re Self Massage Techniques, Education re Correct Donning Tech,Care&Wearing Sched Comp Garments, Caregiver Training, Home Program - Visit Plan Frequency: Every Other Week Duration: 2 Weeks TEXT: Thank you for the opportunity to evaluate your patient. For Medicare and Medicare HMO plans, please review the plan of care and approve it. It will need to be FAXED BACK to us at [phone] for Medicare purposes. Please let me know if there are questions or concerns regarding this plan of care. Physician Signature: Date:
--- NOTE | 2020-01-18 08:12 | HP.OTDCSUM ---
It has been my pleasure to treat CASANDRA JONES under orders from Dr. Leonard Stewart, DO, for the diagnosis of lymphedema for a total of 3 visit(s). Please see the following information for a summary of their discharge status. Objective/Function: pt demo understanding of lymphedema mtg with ex, and compression garments. pt has circaide thigh high compression garments for right LE and knee high for left LE. pt demo understanding on use and care. pt to cont with HEP to self mtg LE lymphedema Patient Goals: Learn how to Manage Lymphedema, Learn how to Apply Compression Stockings Demonstrate a 20% reduction in edema by d/c: Yes Demonstrate adequate knowledge of self-massage by 2nd week: Yes Demonstrate adequate knowledge skin care/prec by 2nd week: Yes Demonstrate adequate knowledge therapeutic exercises by d/c: Yes Select approp compression garment w/donning/care/wear by d/c: Yes Voice need to replace compression garment every 4-6mo by dc: Yes Plan: Pt demo understanding of garment use and ex pt D/c with HEP to mtg LE lymphedema. pt to call if she has questions or concers Discharge Comments: pt seen for 3 OT visits for ed. on compression alternative, lymphedema exercises, skin care and precautions. pt and family demo understanding of using compression to assist in mtg. LE edema. Pt d/c with HEP If there are questions or concerns regarding this patient's occupational therapy, please fell free to call me at [phone]. Thank you for the referral of this patient. Sincerely, Myriam Whitt, OTR/L, CHT
== END 2020-01-17 19:00 | disposition home or self-care (01) ==
LOC: OT 16:00
PROVIDERS: PCP Family Medicine; Referring Provider Family Medicine; Visit Provider Family Medicine
DX: R60.0 Localized edema (principal); L97.919 Non-pressure chronic ulcer of unspecified part of right lower leg with unspecified severity; E11.9 Type 2 diabetes mellitus without complications; G25.81 Restless legs syndrome
CPT/HCPCS: 97110; 97166; 97530

== ENCOUNTER → 2020-03-17 10:37 | Outpatient (CLI) | payer MEDICARE, OTHER, SELFPAY ==
[2019-11-05 14:51] VITALS: BMI 32.3
[2020-03-17 12:33] LABS: Absolute Lymphocyte Count 1.53 X10^3/uL (0.83-4.51); Absolute Neutrophil Count 3.5 X10^3/uL (2.0-7.7); Basophil# 0.02 X10^3/uL; Basophil% 0.3 % (0-1); Eosinophil# 0.23 X10^3/uL; Eosinophils% 3.8 % (0-5); Hemoglobin 10.2 g/dL (12.0-15.0); Lymphocyte # 1.53 X10^3/ul (4.0); Lymphocyte % 25.6 % (19-41); Mean Corp Hgb Conc 31.9 g/dL (32-36); Mean Corpuscular Hgb 29.1 pg (27.0-32.0); Mean Corpuscular Volume 91.2 fL (81-99); Mean Platelet Vol. 9.6 fl (6.2-12.0); Monocyte# 0.62 X10^3/uL; Monocyte% 10.4 % (0-10); NRBC Flagged by Analyzer 0 % (0-5); Neutrophil # 3.53 X10^3/uL (2.7-7.7); Neutrophil % 59.1 % (47-70); Platelet Count 347 K/mm3 (150-450); RBC Distribution Width CV 13.2 % (11.6-14.6); RBC Distribution Width SD 43.8 fl (35.1-43.9); Red Blood Count 3.51 M/mm3 (4.2-5.4)
[2020-03-17 13:02] LABS: ALB/GLOB Ratio 0.7 RATIO (0.9-2.4); AST(SGOT) 12 U/L (15-37); Alanine Aminotransfer ALT/SGPT 21 U/L (13-56); Albumin, Serum 2.7 g/dL (3.2-5.0); Alkaline Phosphatase 133 U/L (45-117); Anion Gap 6 (5-15); BUN 22 mg/dL (7-18); BUN/Creat Ratio 19.6 RATIO (10-20); Calcium,Total 7.9 mg/dL (8.5-10.1); Chloride 99 mmol/L (98-107); Cholesterol 172 mg/dL (200); Creatinine, Serum 1.12 mg/dL (0.55-1.02); EST Glomerular Filtration Rate 51 mL/min (>60); Est Glom Filt Rate - Afr Amer 61 mL/min (>60); Glucose 126 mg/dL (74-106); High Density Lipoprotein 64 mg/dL; Potassium 4.5 mmol/L (3.5-5.1); Protein, Total 6.7 g/dL (6.4-8.2); Sodium Level 133 mmol/L (136-145); Triglycerides 119 mg/dL; Very Low Density Lipoprotein 24 mg/dL (5-40)
== END ==
PROVIDERS: PCP Family Medicine; Referring Provider Family Medicine; Visit Provider Family Medicine
DX: E11.22 Type 2 diabetes mellitus with diabetic chronic kidney disease (principal); N18.3 Chronic kidney disease, stage 3 (moderate); D50.9 Iron deficiency anemia, unspecified; E11.40 Type 2 diabetes mellitus with diabetic neuropathy, unspecified
CPT/HCPCS: 36415; 80053; 80061; 85025

== ENCOUNTER 2020-03-17 20:40 | Emergency (ER) | payer MEDICARE, OTHER, SELFPAY ==
[2019-11-05 14:51] VITALS: BMI 32.3
[2020-03-17 20:40] VITALS: TEMP 36.1; BMI 35.4
[2020-03-17 20:47] VITALS: PULSE 50; RESP 16; O2SAT 96
[2020-03-17 20:49] VITALS: BP 168/65
--- NOTE | 2020-03-17 20:57 | EKG12_ITS ---
Test Reason : PAIN Blood Pressure : / mmHG Vent. Rate : 044 BPM Atrial Rate : 044 BPM P-R Int : 232 ms QRS Dur : 086 ms QT Int : 528 ms P-R-T Axes : 006 -03 043 degrees QTc Int : 451 ms Marked sinus bradycardia with 1st degree A-V block Abnormal ECG Confirmed by ARHUL MURRAY, GUERRERO ([id number]), primer expeditor and drier AKANKSHA ESCOBAR ([id number]) on 03/20/2020 2:34:58 PM Referred By: BB Confirmed By:GUERRERO KAY MD
--- NOTE | 2020-03-17 20:58 | ED.VIS.GEN ---
History of Present Illness Informant: Patient Narrative: Patient presented to the emergency department via EMS following an unresponsive episode. Patient is a diabetic and remembers eating lunch and an afternoon snack. She had not got the dinner. She states she began feeling very drowsy and out of it and sweaty. Eventually she went unresponsive. Family was worried they could not feel pulse and started CPR. MS arrived and found a blood sugar of 33. Patient woke up and states that she is feeling much better. She still feels tired. She denies any pain particularly in the chest. brings in a note that they got today from their doctor stating that her control of her diabetes has worsened. Her previous hemoglobin A1c was 9.1 is now up to 11.9. Reportedly she was experiencing some hypoglycemia and they asked her to stop her glimepiride. They wanted her to continue to use Levemir at 33 units daily and to begin a rapid acting insulin 5 units with each regular meal 3 times a day. <Aguila Wang - Last Filed: 03/17/20 21:53> <Edson Gibbs - Last Filed: 03/17/20 23:18> Chief Complaint: Hypoglycemia Past Medical History Surgical History: herniorrhaphy, - - left ankle, carpal tunnel, gastric bypass, left hip cemented hemiarthroplasty Smoking Status: Never smoker - Family History Maternal Family History: Reports: Cancer - uterine Paternal Family History: Reports: Cancer - prostate, Heart Disease <Aguila Wang - Last Filed: 03/17/20 21:53> <Edson Gibbs - Last Filed: 03/17/20 23:18> - Allergies and Home Meds Allergies/Adverse Reactions: Allergies No Known Allergies Allergy (Verified 09/07/19 14:49) Primary Care Physician: Leonard Stewart DO [Primary Care Provider] - Review of Systems General: Denies: Chills, Fever, Sweats Eyes: Denies: Visual changes - bilaterally, Diplopia ENT: Denies: Rhinorrhea, Sore throat Cardiovascular: Denies: Chest pain, Palpitations Respiratory: Denies: Dyspnea, Cough, Dyspnea on exertion Gastrointestinal: Denies: Abdominal pain, Nausea, Vomiting, Diarrhea, Melena, Hematochezia Genitourinary: Denies: Dysuria, Hematuria, Frequency Musculoskeletal: Denies: Back pain, Extremity Pain Skin: Denies: Rash, Wounds Neurological: Denies: Headache, Weakness, Numbness <Aguila Wang - Last Filed: 03/17/20 21:53> Physical Exam Vital Signs/Narrative: Vital Signs Temp Pulse Resp BP Pulse Ox 03/17/20 20:49 168/65 H 03/17/20 20:47 50 L 16 96 03/17/20 20:40 97 F L Inital Vital Signs reviewed: Yes General: Well nourished, Well developed, No Acute Distress Head: Normocephalic, Atraumatic Eyes: Perrl, EOMI ENT: Moist mucous membranes, No rhinorrhea Neck: Supple, Nontender Cardiovascular: Regular rhythm, No murmurs, Bradycardia Respiratory: No distress, CTA bilaterally, Chest nontender Abdomen: Soft, Nontender, Nondistended, Normal bowel sounds Back: Nontender, Normal Inspection Extremities: Nontender, No edema Skin: Normal color, No rash Neurological: Alert, Oriented x3, Cranial nerves II-XII grossly intact, Normal Strength, Normal Sensation, - - While alert and oriented x3 the patient does appear tired Psychological: Normal affect, Normal Mood <Aguila Wang - Last Filed: 03/17/20 21:53> Vital Signs/Narrative: Vital Signs Temp Pulse Resp BP Pulse Ox 03/17/20 22:46 59 L 23 H 138/63 H 97 03/17/20 20:49 168/65 H 03/17/20 20:47 50 L 16 96 03/17/20 20:40 97 F L <Edson Gibbs - Last Filed: 03/17/20 23:18> Diagnostic/Tx/Re-eval - EKG Initial EKG Interpretation: Sinus Bradycardia - EKG demonstrates a sinus bradycardia with first-degree AV block at a rate of 44. This appears grossly unchanged from earlier this year. - Medical Decision Making Blood sugar readings synopsis: 33 on scene per EMS given D50 up to 130. 105 upon arrival to emergency. 30 minutes later down to 65 She was given an amp of D50 and given food. At this point we will plan on checking for more blood sugars. If she has another hypoglycemic episode she will be admitted. Care the patient will be transferred to the night physician for check of the blood sugars and final disposition. <Aguila Wang - Last Filed: 03/17/20 21:53> - Medical Decision Making This patient was signed out to me to follow-up on repeat blood sugars. Patient has had 2 blood sugars which have remained stable greater than 100. At this point I do believe the patient be safely discharged home. <Edson Gibbs - Last Filed: 03/17/20 23:18> ED Disposition <Aguila Wang - Last Filed: 03/17/20 21:53> <Edson Gibbs - Last Filed: 03/17/20 23:18> - Plan for ED Patient: Disposition: Home or Assisted Living Diagnosis: Diabetic hypoglycemia, Sinus bradycardia Instructions: ED HYPOGLYCEMIA Insulin Rxn Referrals: Leonard Stewart DO [Primary Care Provider] -
--- NOTE | 2020-03-17 21:02 | RAD_ITS ---
STUDY: X-RAY CHEST REASON FOR EXAM: Female, 75 years old. LOW GLUCOSE, SYNCOPE TECHNIQUE: Single frontal view of the chest. COMPARISON: 11/05/2019 FINDINGS: The lungs are clear and expanded. There is no demonstrated pleural abnormality. Normal size heart. Normal mediastinum and cori. Normal visualized pulmonary arteries. Normal visualized aortic arch and descending thoracic aorta. Normal visualized thoracic spine. Normal visualized ribs, clavicles, and shoulders. There is no demonstrated abnormality of the visualized soft tissue structures of the upper abdomen. RAD/Chest 1 View (Portable) IMPRESSION: Normal x-ray examination of the chest. Electronically Signed: Aryan Starr MD at 21:17 EDT , Service support ,
[2020-03-17 21:20] LABS: Absolute Lymphocyte Count 1.11 X10^3/uL (0.83-4.51); Absolute Neutrophil Count 5.2 X10^3/uL (2.0-7.7); Basophil# 0.03 X10^3/uL; Basophil% 0.4 % (0-1); Eosinophil# 0.19 X10^3/uL; Eosinophils% 2.6 % (0-5); Hematocrit 35.3 % (37-47); Hemoglobin 11.3 g/dL (12.0-15.0); Lymphocyte # 1.11 X10^3/ul (4.0); Lymphocyte % 15.4 % (19-41); Mean Corpuscular Hgb 28.5 pg (27.0-32.0); Mean Corpuscular Volume 89.1 fL (81-99); Mean Platelet Vol. 9.4 fl (6.2-12.0); Monocyte# 0.61 X10^3/uL; Monocyte% 8.5 % (0-10); NRBC Flagged by Analyzer 0 % (0-5); Neutrophil # 5.15 X10^3/uL (2.7-7.7); Neutrophil % 71.7 % (47-70); Platelet Count 356 K/mm3 (150-450); RBC Distribution Width SD 42.5 fl (35.1-43.9); Red Blood Count 3.96 M/mm3 (4.2-5.4); White Blood Count 7.2 K/mm3 (4.4-11.0)
[2020-03-17 21:20] LABS: Bedside Glucose 63 mg/dL (70-110)
[2020-03-17] MEDS: Dextrose 50%-Water 25 GM/50 ML DISP.SYRIN IV (21:27)
[2020-03-17 21:34] LABS: ALB/GLOB Ratio 0.6 RATIO (0.9-2.4); AST(SGOT) 13 U/L (15-37); Alanine Aminotransfer ALT/SGPT 20 U/L (13-56); Albumin, Serum 2.6 g/dL (3.2-5.0); Alkaline Phosphatase 137 U/L (45-117); Anion Gap 5 (5-15); BUN 26 mg/dL (7-18); BUN/Creat Ratio 22.2 RATIO (10-20); Calcium,Total 8.4 mg/dL (8.5-10.1); Chloride 103 mmol/L (98-107); Creatinine, Serum 1.17 mg/dL (0.55-1.02); EST Glomerular Filtration Rate 48 mL/min (>60); Est Glom Filt Rate - Afr Amer 58 mL/min (>60); Estimated Creatinine Clearance 52.94 ml/min; Globulin 4.1 g/dL (2.2-4.2); Glucose 89 mg/dL (74-106); Potassium 4.1 mmol/L (3.5-5.1); Protein, Total 6.7 g/dL (6.4-8.2); Sodium Level 135 mmol/L (136-145)
--- NOTE | 2020-03-17 21:44 | ED.RN ---
PT ATE A FULL HAM AND CHEESE SANDWICH ALONG WITH 2 CUPS OF APPLE JUICE
[2020-03-17 22:10] LABS: Bedside Glucose 233 mg/dL (70-110)
[2020-03-17 22:46] VITALS: BP 138/63; PULSE 59; RESP 23; O2SAT 97
[2020-03-17 23:11] LABS: Bedside Glucose 313 mg/dL (70-110)
[2020-03-17 23:37] VITALS: BP 127/66; PULSE 84; RESP 16; O2SAT 98
[2020-03-21 15:21] LABS: Bedside Glucose 105 mg/dL (70-110)
== END 2020-03-17 23:37 | disposition home or self-care (01) ==
PROVIDERS: Emergency Provider Emergency Medicine; PCP Family Medicine
DX: E11.649 Type 2 diabetes mellitus with hypoglycemia without coma (principal); R00.1 Bradycardia, unspecified; I44.0 Atrioventricular block, first degree; Z79.4 Long term (current) use of insulin; Z79.82 Long term (current) use of aspirin; Z79.899 Other long term (current) drug therapy; E11.22 Type 2 diabetes mellitus with diabetic chronic kidney disease; N18.3 Chronic kidney disease, stage 3 (moderate); D50.9 Iron deficiency anemia, unspecified; E11.40 Type 2 diabetes mellitus with diabetic neuropathy, unspecified
CPT/HCPCS: 36415; 71045; 80053; 80061; 82962; 84484; 85025; 93005; 96374; 99285; J7040; A4216

== ENCOUNTER 2020-06-28 13:45 | Outpatient (RCR) | payer MEDICARE, OTHER, SELFPAY ==
[2019-11-05 14:51] VITALS: BMI 32.3
[2019-12-03 00:15] VITALS: BP 193/64; PULSE 53; RESP 22; TEMP 36.9
[2020-05-05 09:25] VITALS: BMI 35.4
[2020-06-05 11:35] VITALS: BP 158/73; PULSE 80; RESP 18; TEMP 36.5; BMI 34.3
--- NOTE | 2020-06-05 12:44 | PCM.WC.HP ---
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 Code(s): L97.929 - Non-pressure chronic ulcer of unspecified part of left lower leg with unspecified severity (2) Edema of both lower extremities Status: Chronic Code(s): R60.0 - Localized edema (3) T2DM (type 2 diabetes mellitus) Status: Chronic Qualifiers: Diabetes mellitus manager terminal insulin use: with manager terminal use Diabetes mellitus complication status: with skin complications Diabetes mellitus complication detail: with other skin ulcer Qualified Code(s): E11.622 - Type 2 diabetes mellitus with other skin ulcer; Z79.4 - prison (current) use of insulin Code(s): E11.9 - Type 2 diabetes mellitus without complications (4) CKD (chronic kidney disease), stage III Status: Chronic Code(s): N18.3 - Chronic kidney disease, stage 3 (moderate) (5) Rheumatoid arthritis Status: Chronic Code(s): M06.9 - Rheumatoid arthritis, unspecified History of Present Illness Date of Service: 06/05/20 Chief Complaint: Non healing ulcer on left lower leg that occured in March when a watermelon rind hit her leg. History of Wound: Ms. Garcia is a pleasant 75-year-old female who [facility] for non healing traumatic ulcer of left lower leg caused in March from a watermelon rind. Her PCP, Dr. Stewart has been treating this ulcer with collagen hydrogel and adaptic. She also has been on Bactrim prescribed by Dr. Stewart. She has been evaluated and treated at the [facility] in the past with the most recent being this past spring. Patient has bilateral lower extremity edema and states that she has leg pumps at home that she has not been using lately to help with her edema. Patient has a PMH significant for T2 DM, RA, CKD stage III. Arterial studies from 10/08/2019 showed the following: Right MONAE (DP and PT) non-calculable; left MONAE (DP and PT) non-calculable; right DBI 0.71; left DBI 0.74; there is evidence of arterial calcification at ankle level bilaterally; there is no evidence of significant arterial occlusive disease in the lower extremities bilaterally (see report for full details). Venous studies from 10/08/2019 showed the following:The deep veins of the lower extremities are bilaterally patent and compressible segmentally. Valvular competence appears intact within the proximal deep venous systems bilaterally. The right great saphenous vein appears competent above the knee, but incompetent below the knee. The left great saphenous vein appears segmentally competent. Pulsatile flow was noted in the deep venous system bilaterally, which may be indicative of elevated central venous pressure (i.e. congestive heart failure, tricuspid valve insufficiency, etc.). See report for full details. Today she denies any fever, chills, nausea or vomiting. Past Medical History Past Medical History: Chronic Problems Venous stasis dermatitis of both lower extremities (Chronic) Venous stasis ulcer of right lower leg with edema of right lower leg (Chronic) T2DM (type 2 diabetes mellitus) (Chronic) Rheumatoid arthritis (Chronic) CKD (chronic kidney disease), stage III (Chronic) Edema of both lower extremities (Chronic) Traumatic ulcer of left lower leg (Chronic) Surgical History: herniorrhaphy, - Allergies/Adverse Reactions: Allergies No Known Allergies Allergy (Verified 09/07/19 14:49) Home Medications: Ambulatory Orders Medication Instructions Recorded Ferrous Sulfate [Iron] 325 mg PO DAILY 08/14/17 Pramipexole Di-HCl [Mirapex] 2 mg PO QHS 08/14/17 Propranolol HCl 20 mg PO BID 10/28/18 Hydroxychloroquine Sulfate 200 mg PO DAILY 09/07/19 [Plaquenil] Insulin Detemir [Levemir FlexPen] 28 units SUBCUT DAILY 09/07/19 Furosemide [Lasix] 40 mg PO DAILY 11/05/19 Acetaminophen [Tylenol] 1,000 mg PO Q8 tab 11/08/19 Aspirin [Aspirin, Baby] 81 mg PO BID tab.chew 11/08/19 Cholecalciferol (Vitamin D3) 2,000 unit PO DAILY #30 cap 11/08/19 [Vitamin D3] Senna/Docusate Sodium [Senokot-S] 2 tab PO BID PRN PRN #0 tab 11/08/19 - Family History Maternal Cancer - uterine Paternal Cancer - prostate, Heart Disease Smoking Status: Never smoker Review of Systems Constitutional: Denies: Chills, Fever, Weakness Eyes: Denies: Blurred vision HEENT: Denies: Difficulty Hearing, Difficulty Swallowing, Sinus Congestion Cardiovascular: Reports: Edema - Bilateral lower extremity edema. Denies: Chest Pain, Palpitations Respiratory: Denies: Cough, Shortness of Breath Gastrointestinal: Denies: Diarrhea, Nausea, Vomiting Musculoskeletal: Reports: Joint stiffness Skin: Reports: Wounds - Opened area on left lower leg that was caused when a watermelon rind that was in a trash bag hit her leg and caused an opened area. Neurological: Denies: Balance problems Psychiatric: Denies: Anxiety Endocrine: Denies: Heat/ Cold Intolerance, Polydipsia, Polyuria Hematologic/ Lymphatic: Denies: Easy Bruising, Easy Bleeding - Physical Exam Vital Signs Temp Pulse Resp BP 97.7 F L 80 18 158/73 H 06/05/20 11:35 06/05/20 11:35 06/05/20 11:35 06/05/20 11:35 General: Alert, Oriented x3, Cooperative HEENT: Atraumatic Oral: Moist Mucosa Lungs: Clear to auscultation, Normal air movement Cardiovascular: Regular rate, Regular Rhythm Abdomen: Bowel Sounds Present, Soft Extremities: Edema - +2-+3 pitting edema of bilateral lower extremities Skin: Ulcer/ Wound - Left lower leg ulcer that is opened with minimal drainage. Wound Measurements and Assessment WC - Nurse 1 - General Ulcer Measurement Start: 06/05/20 11:35 Freq: Status: Active Protocol: Activity Type Activity Date Activity User E-Sign Co-Sign Detail Recorded Client Recorded Date Recorded By Document 06/05/20 11:35 DL [id number] 06/05/20 11:49 DL 06/05/20 11:35 Wound Center Nurse 1 [Ulcer Assessment] #4 L Lower Leg -Current Size (cm) - Length 1.8 -Current Size (cm) - Width 1 -Current Size (cm) - Depth 0.3 -Total Square Cm 1.8 -Photo Taken Yes -Classification - Thickness Full Thickness without Exposed Support Structure -Exudate Amt Small -Exudate Type Serosanguineous -Wound Margin Distinct, Outline Attached -Granulation Amt Large (67-100%) -Granulation Quality Ute -Necrosis Amt Large (67-100%) -Necrotic Tissue Type Adherent Slough -Structure Exposed N/A -Texture (Stefany-wound Skin Appearance) Localized Edema ,Scarring -Moisture (Stefany-wound Skin Appearance Dry/Scaly ) -Color (Stefany-wound Skin Appearance) Erythema, Hemosiderin Staining -Temperature (Stefany-wound Skin No Abnormality Appearance) (Pt Warm) -Tenderness on Palpation (Stefany-wound No Skin Appearance) -Ulcer Cleansing Rinsed/ Irrigated with Saline -Foul Odor after Cleansing No -Anesthetic Used 4% Lidocaine Solution [Edema Assessment] -Right Calf (cm) 38 -Right Ankle (cm) 22.5 -Left Calf (cm) 36 -Left Ankle (cm) 21.5 - Nurse 2 - General Ulcer CM Notes Start: 06/05/20 11:35 Freq: Status: Active Protocol: Activity Type Activity Date Activity User E-Sign Co-Sign Detail Recorded Client Recorded Date Recorded By Document 06/05/20 12:16 [id number] 06/05/20 12:18 06/05/20 12:16 Wound Center Nurse 2 [Procedure/Treatment] #4 L Lower Leg -Time 12:17 -Correct Patient Yes -Correct Side, Site, Position Yes -Correct Procedure Yes -Procedure Performed Yes -Type of Procedure Debridement -Clinical Debridement Subcutaneous -Tissue Removed Subcutaneous -Post Debridement (cm) - Length 1.7 -Post Debridement (cm) - Width 1.3 -Post Debridement (cm) - Depth 0.3 -Total Square (Post) (cm) 2.21 -Area of Debridement (cm) - Length 1.7 -Area of Debridement (cm) - Width 1.3 -Total Square (Area) (cm) 2.21 -Tunneling No -Undermining/Tunneling No -Circular Undermining No -Wound/Ulcer Outcome Not Healed -Ulcer Cleansing Rinsed/ Irrigated with Saline -Foul Odor after Cleansing No -Bioengineered Tissue No -Bleeding Controlled with Pressure -Offloading No -Treatment Response Procedure Tolerated Well -Debridement - Subq, 1st 20sq cm Yes [See Physician Procedure note for Specifics] Pain Scale: 0-10 Numeric [Pain] -Is Patient Pain Free? Yes - Nurse 3 - General Ulcer D/C NN Start: 06/05/20 11:35 Freq: Status: Active Protocol: Activity Type Activity Date Activity User E-Sign Co-Sign Detail Recorded Client Recorded Date Recorded By Document 06/05/20 12:27 [facility] [id number] 06/05/20 12:28 [facility] 06/05/20 12:27 Wound Care Nurse 3 [Wound Dressing] #4 L Lower Leg -Ulcer Cleansing Rinsed/ Irrigated with Saline -Foul Odor after Cleansing No -Primary Dressing Applied NonAdherent Contact Layer, Promogran Cristina Matter -Primary Dressing Covered/Secured Dry Gauze & with Roll Gauze, Secured with Tape -Promogran Cristina Matter 1 [Compression Applied] Left -Tubular Bandage Single Layer -Size of Tubigrip Used Size C -Size C ($) 1 [Post Procedure Tolerated] -Treatment Response Procedure Tolerated Well Pain Scale: 0-10 Numeric [Pain] -Is Patient Pain Free? Yes WC - Visit Discharge [Visit Discharge Information] -Discharge Condition Stable -Ambulatory Status Ambulatory, Walker -Transportation Private Auto Musculoskeletal: No Tenderness to Palpation of Joints or Extremities Neurological: Cranial nerves II-XII grossly intact Debridement Note Post-Debridement Measurements/Treatment WC - Nurse 2 - General Ulcer CM Notes Start: 06/05/20 11:35 Freq: Status: Active Protocol: Activity Type Activity Date Activity User E-Sign Co-Sign Detail Recorded Client Recorded Date Recorded By Document 06/05/20 12:16 [email or web address] [id number] 06/05/20 12:18 [email or web address] 06/05/20 12:16 Wound Center Nurse 2 #4 L Lower Leg -Time 12:17 -Correct Patient Yes -Correct Side, Site, Position Yes -Correct Procedure Yes -Procedure Performed Yes -Type of Procedure Debridement -Clinical Debridement Subcutaneous -Tissue Removed Subcutaneous -Post Debridement (cm) - Length 1.7 -Post Debridement (cm) - Width 1.3 -Post Debridement (cm) - Depth 0.3 -Total Square (Post) (cm) 2.21 -Area of Debridement (cm) - Length 1.7 -Area of Debridement (cm) - Width 1.3 -Total Square (Area) (cm) 2.21 -Tunneling No -Undermining/Tunneling No -Circular Undermining No -Wound/Ulcer Outcome Not Healed -Ulcer Cleansing Rinsed/ Irrigated with Saline -Foul Odor after Cleansing No -Bioengineered Tissue No -Bleeding Controlled with Pressure -Offloading No -Treatment Response Procedure Tolerated Well -Debridement - Subq, 1st 20sq cm Yes Pain Scale: 0-10 Numeric Is Patient Pain Free? Yes - Nurse 3 - General Ulcer D/C NN Start: 06/05/20 11:35 Freq: Status: Active Protocol: Activity Type Activity Date Activity User E-Sign Co-Sign Detail Recorded Client Recorded Date Recorded By Document 06/05/20 12:27 [facility] [id number] 06/05/20 12:28 [facility] 06/05/20 12:27 Wound Care Nurse 3 #4 L Lower Leg -Ulcer Cleansing Rinsed/ Irrigated with Saline -Foul Odor after Cleansing No -Primary Dressing Applied NonAdherent Contact Layer, Promogran Cristina Matter -Primary Dressing Covered/Secured with Dry Gauze & Roll Gauze, Secured with Tape -Promogran Cristina Matter 1 Left -Tubular Bandage Single Layer -Size of Tubigrip Used Size C -Size C ($) 1 Treatment Response Procedure Tolerated Well Pain Scale: 0-10 Numeric Is Patient Pain Free? Yes WC - Visit Discharge Discharge Condition Stable Ambulatory Status Ambulatory, Walker Transportation Private Auto Wound debrided: lower leg ulcer Laterality: Left Type of Debridement: Excisional debridement Anesthesia Used: 5% Lidocaine Gel Depth: Down to and including healthy tissue, in the subcutaneous layer Percentage of wound debrided: 100 Instrument Used: 5mm curette Tissue Removed: Subcutaneous tissue and slough Severity: Fat Layer Exposed Amount of bleeding with debridement: Mild Bleeding Controlled with: Pressure Patient tolerated procedure well Assessment/Plan Active Problems T2DM (type 2 diabetes mellitus) (Chronic) Edema of both lower extremities (Chronic) Traumatic ulcer of left lower leg (Chronic) Assessment: 1. Traumatic ulcer of left lower leg. 2. Edema of bilteral lower legs, chronic. 3. T2DM, insulin-dependent, chronic. 4. Rheumatoid arthritis, chronic. 5. CKD, stage III, chronic Plan: Patient was evaluated today at the wound healing center. A subcutaneous debridement was performed, patient tolerated the procedure well. She has been using collagen hydrogel and adaptic on her ulcer since she obtained the ulcer. She also has been on Bactrim. A wound culture was obtained today, 06/05/20. Depending on the results of the culture it may necessitate the need for antibiotic therapy. Wound care - Will stop the collagen hydrogel and start moistened Cristina covered by adaptic daily. Encouraged patient to use her edema compression pumps twice daily. She also should be wearing compression stockings. Will start tubigrips for compression. Her most recent arterial studies are as follows. Unclear if she ever followed up with a vascular surgeon. Arterial studies from 10/08/2019 showed the following: Right MONAE (DP and PT) non-calculable; left MONAE (DP and PT) non-calculable; right DBI 0.71; left DBI 0.74; there is evidence of arterial calcification at ankle level bilaterally; there is no evidence of significant arterial occlusive disease in the lower extremities bilaterally (see report for full details). Venous studies from 10/08/2019 showed the following:The deep veins of the lower extremities are bilaterally patent and compressible segmentally. Valvular competence appears intact within the proximal deep venous systems bilaterally. The right great saphenous vein appears competent above the knee, but incompetent below the knee. The left great saphenous vein appears segmentally competent. Pulsatile flow was noted in the deep venous system bilaterally, which may be indicative of elevated central venous pressure (i.e. congestive heart failure, tricuspid valve insufficiency, etc.). See report for full details. Follow-up one week. Office Visits / Consults: [id number] OV L3 Est - 25 modifier [id number]: [id number] Nery subq tissue 20 sq cm/<
--- NOTE | 2020-06-09 12:58 | WC ---
TC FROM [facility] [employer]. REVIEWED PT'S WOUND CX. + FOR STAPH AND PSEUDOMONAS. N.O RECEIVED FOR LEVAQUIN 500 MG PO DAILY X 21 DAYS. NO REFILLS. VERIFIED NKA. MSG LEFT ON PTS VOICEMAIL W/ UPDATE GIVEN. RX CALLED TO PT[facility] [place].
[2020-06-15 13:18] VITALS: BP 132/36; PULSE 59; RESP 16; TEMP 35.8; BMI 34.3
[2020-06-15 13:58] VITALS: BP 132/56
--- NOTE | 2020-06-15 16:09 | PCM.WC.PN ---
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 Code(s): L97.929 - Non-pressure chronic ulcer of unspecified part of left lower leg with unspecified severity (2) CKD (chronic kidney disease), stage III Status: Chronic Code(s): N18.3 - Chronic kidney disease, stage 3 (moderate) (3) Edema of both lower extremities Status: Chronic Code(s): R60.0 - Localized edema (4) Rheumatoid arthritis Status: Chronic Code(s): M06.9 - Rheumatoid arthritis, unspecified (5) T2DM (type 2 diabetes mellitus) Status: Chronic Qualifiers: Diabetes mellitus long-term insulin use: with long-term use Diabetes mellitus complication status: with skin complications Diabetes mellitus complication detail: with other skin ulcer Qualified Code(s): E11.622 - Type 2 diabetes mellitus with other skin ulcer; 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 History of Wound: Ms. Garcia is a pleasant 75-year-old female who [facility] for non healing traumatic ulcer of left lower leg caused in March from a watermelon rind. Her PCP, Dr. Stewart has been treating this ulcer with collagen hydrogel and adaptic. She also has been on Bactrim prescribed by Dr. Stewart. She has been evaluated and treated at the [facility] in the past with the most recent being this past spring. Patient has bilateral lower extremity edema and states that she has leg pumps at home that she has not been using lately to help with her edema. Patient has a PMH significant for T2 DM, RA, CKD stage III. Arterial studies from 10/08/2019 showed the following: Right MONAE (DP and PT) non-calculable; left MONAE (DP and PT) non-calculable; right DBI 0.71; left DBI 0.74; there is evidence of arterial calcification at ankle level bilaterally; there is no evidence of significant arterial occlusive disease in the lower extremities bilaterally (see report for full details). Venous studies from 10/08/2019 showed the following:The deep veins of the lower extremities are bilaterally patent and compressible segmentally. Valvular competence appears intact within the proximal deep venous systems bilaterally. The right great saphenous vein appears competent above the knee, but incompetent below the knee. The left great saphenous vein appears segmentally competent. Pulsatile flow was noted in the deep venous system bilaterally, which may be indicative of elevated central venous pressure (i.e. congestive heart failure, tricuspid valve insufficiency, etc.). See report for full details. Today she denies any fever, chills, nausea or vomiting. Progress of Wound: Stable tolerating levaquin well for her recent MRSA and pseudomonas culture, Left lower extremity ulcer stable - Physical Exam Vital Signs Temp Pulse Resp BP 96.5 F L 59 L 16 132/56 H 06/15/20 13:18 06/15/20 13:18 06/15/20 13:18 06/15/20 13:58 General: Alert, Oriented x3, Cooperative, No apparent distress HEENT: Atraumatic Oral: Moist Mucosa Lungs: Clear to auscultation, Normal air movement Cardiovascular: Regular rate, Regular Rhythm Abdomen: Soft Extremities: No clubbing, No cyanosis, Edema - 2+ pitting bilateral lower extremity edema Skin: Ulcer/ Wound - See nursing documentation, slough and devitalized tissue present, still mild amount of surrounding erythema, no streaking or warmth present to left lower extremity ulcer Wound Measurements and Assessment WC - Nurse 1 - General Ulcer Measurement Start: 06/05/20 11:35 Freq: Status: Active Protocol: Activity Type Activity Date Activity User E-Sign Co-Sign Detail Recorded Client Recorded Date Recorded By Document 06/15/20 13:18 [facility] [id number] 06/15/20 13:23 [facility] 06/15/20 13:18 Wound Center Nurse 1 [Ulcer Assessment] #4 L Lower Leg -Combined with other wound No -Current Size (cm) - Length 1.9 -Current Size (cm) - Width 0.9 -Current Size (cm) - Depth 0.3 -Total Square Cm 1.71 -Photo Taken No -Epithelialization None Present -Tunneling No -Undermining/Tunneling No -Circular Undermining No -Exudate Amt Medium -Exudate Type Serosanguineous -Wound Margin Distinct, Outline Attached -Granulation Amt Small (1-33%) -Granulation Quality Red -Slough/Fibrin Yes -Necrosis Amt Large (67-100%) -Necrotic Tissue Type Adherent Slough -Texture (Stefany-wound Skin Appearance) Assessed, Scarring -Moisture (Stefany-wound Skin Appearance Assessed,Dry/ ) Scaly -Color (Stefany-wound Skin Appearance) Assessed, Erythema -Temperature (Stefany-wound Skin No Abnormality Appearance) (Pt Warm) -Tenderness on Palpation (Stefany-wound No Skin Appearance) -Ulcer Cleansing Rinsed/ Irrigated with Saline -Foul Odor after Cleansing No -Anesthetic Used 4% Lidocaine Solution [Edema Assessment] -Lower Limb Edema Present Yes -Left Calf (cm) 37 -Left Ankle (cm) 22.5 ROBERT - Nurse 2 - General Ulcer CM Notes Start: 06/05/20 11:35 Freq: Status: Active Protocol: Activity Type Activity Date Activity User E-Sign Co-Sign Detail Recorded Client Recorded Date Recorded By Document 06/15/20 13:31 MW [id number] 06/15/20 13:35 MW 06/15/20 13:31 Wound Center Nurse 2 [Procedure/Treatment] #4 L Lower Leg -Time 13:34 -Correct Patient Yes -Correct Side, Site, Position Yes -Correct Procedure Yes -Procedure Performed Yes -Type of Procedure Debridement -Clinical Debridement Subcutaneous -Tissue Removed Subcutaneous -Post Debridement (cm) - Length 1.6 -Post Debridement (cm) - Width 1.2 -Post Debridement (cm) - Depth 0.2 -Total Square (Post) (cm) 1.92 -Area of Debridement (cm) - Length 1.6 -Area of Debridement (cm) - Width 1.2 -Total Square (Area) (cm) 1.92 -Tunneling No -Undermining/Tunneling No -Circular Undermining No -Wound/Ulcer Outcome Not Healed -Ulcer Cleansing Rinsed/ Irrigated with Saline -Foul Odor after Cleansing No -Bioengineered Tissue No -Bleeding Controlled with Pressure -Offloading No -Treatment Response Procedure Tolerated Well -Debridement - Subq, 1st 20sq cm Yes [See Physician Procedure note for Specifics] Pain Scale: 0-10 Numeric [Pain] -Is Patient Pain Free? Yes ROBERT - Nurse 3 - General Ulcer D/C NN Start: 06/05/20 11:35 Freq: Status: Active Protocol: Activity Type Activity Date Activity User E-Sign Co-Sign Detail Recorded Client Recorded Date Recorded By Document 06/15/20 13:58 RB [id number] 06/15/20 14:00 RB 06/15/20 13:58 Wound Care Nurse 3 [Wound Dressing] #4 L Lower Leg -Ulcer Cleansing Rinsed/ Irrigated with Saline -Primary Dressing Applied Promogran Arun Matter -Primary Dressing Covered/Secured Dry Gauze,Dry with Gauze & Roll Gauze,Secured with Tape -Promogran Arun Matter 1 [Compression Applied] Left -Tubular Bandage Single Layer -Size of Tubigrip Used Size C -Size C ($) 1 -Stockings Yes Vital Signs [Blood Pressure] -Blood Pressure (90/60-120/80) 132/56 H -Blood Pressure Mean (mm Hg) 81 -Source Monitor -Position Semi-Fowlers -Blood Pressure Location Left Arm Pain Scale: 0-10 Numeric [Pain] -Is Patient Pain Free? No Teaching: Wound Center [Wound Center Education] (Items with an * have Printed Materials Available- Please identify what is given to patient under the Teaching materials given to patient and caregiver Section. Control Swelling with Leg Elevation -Person Taught Patient -Teaching Method Discussion -Response to teaching Verbalize understanding WC - Visit Discharge [Visit Discharge Information] -Discharge Condition Stable -Ambulatory Status Ambulatory, Walker -Transportation Private Auto -Medication Reconcilliation completed No & provided to patient/care provider -Clinical Summary of Care Provided Yes Neurological: Neuro grossly intact Psych/Mental Status: Normal Affect, Appropriate, Alert and oriented to time, place, person, mood and affect Debridement Note Post-Debridement Measurements/Treatment WC - Nurse 2 - General Ulcer CM Notes Start: 06/05/20 11:35 Freq: Status: Active Protocol: Activity Type Activity Date Activity User E-Sign Co-Sign Detail Recorded Client Recorded Date Recorded By Document 06/05/20 12:16 JF [id number] 06/05/20 12:18 JF Document 06/15/20 13:31 MW [id number] 06/15/20 13:35 MW 06/05/20 06/15/20 12:16 13:31 Wound Center Nurse 2 #4 L Lower Leg -Time 12:17 13:34 -Correct Patient Yes Yes -Correct Side, Site, Position Yes Yes -Correct Procedure Yes Yes -Procedure Performed Yes Yes -Type of Procedure Debridement Debridement -Clinical Debridement Subcutaneous Subcutaneous -Tissue Removed Subcutaneous Subcutaneous -Post Debridement (cm) - Length 1.7 1.6 -Post Debridement (cm) - Width 1.3 1.2 -Post Debridement (cm) - Depth 0.3 0.2 -Total Square (Post) (cm) 2.21 1.92 -Area of Debridement (cm) - Length 1.7 1.6 -Area of Debridement (cm) - Width 1.3 1.2 -Total Square (Area) (cm) 2.21 1.92 -Tunneling No No -Undermining/Tunneling No No -Circular Undermining No No -Wound/Ulcer Outcome Not Healed Not Healed -Ulcer Cleansing Rinsed/ Rinsed/ Irrigated with Irrigated with Saline Saline -Foul Odor after Cleansing No No -Bioengineered Tissue No No -Bleeding Controlled with Pressure Pressure -Offloading No No -Treatment Response Procedure Procedure Tolerated Well Tolerated Well -Debridement - Subq, 1st 20sq cm Yes Yes Pain Scale: 0-10 Numeric Is Patient Pain Free? Yes Yes - Nurse 3 - General Ulcer D/C NN Start: 06/05/20 11:35 Freq: Status: Active Protocol: Activity Type Activity Date Activity User E-Sign Co-Sign Detail Recorded Client Recorded Date Recorded By Document 06/05/20 12:27 [facility] [id number] 06/05/20 12:28 [facility] Document 06/15/20 13:58 [id number] 06/15/20 14:00 RB 06/05/20 06/15/20 12:27 13:58 Wound Care Nurse 3 #4 L Lower Leg -Ulcer Cleansing Rinsed/ Rinsed/ Irrigated with Irrigated with Saline Saline -Foul Odor after Cleansing No -Primary Dressing Applied NonAdherent Promogran Contact Layer, Arun Matter Promogran Arun Matter -Primary Dressing Covered/Secured with Dry Gauze & Dry Gauze,Dry Roll Gauze, Gauze & Roll Secured with Gauze,Secured Tape with Tape -Promogran Arun Matter 1 1 Left -Tubular Bandage Single Layer Single Layer -Size of Tubigrip Used Size C Size C -Size C ($) 1 1 -Stockings Yes Treatment Response Procedure Tolerated Well Vital Signs Blood Pressure (90/60-120/80) 132/56 H Blood Pressure Mean (mm Hg) 81 Source Monitor Position Semi-Fowlers Blood Pressure Location Left Arm Pain Scale: 0-10 Numeric Is Patient Pain Free? Yes No Teaching: Wound Center Control Swelling with Leg Elevation -Person Taught Patient -Teaching Method Discussion -Response to teaching Verbalize understanding WC - Visit Discharge Discharge Condition Stable Stable Ambulatory Status Ambulatory, Ambulatory, Walker Walker Transportation Private Auto Private Auto Medication Reconcilliation completed & No provided to patient/care provider Clinical Summary of Care Provided Yes Wound debrided: Left venous leg ulcer Laterality: Left Type of Debridement: Excisional debridement Anesthesia Used: 5% Lidocaine Gel Depth: in the subcutaneous layer Percentage of wound debrided: 100 Instrument Used: 5mm curette Tissue Removed: Slough and devitalized tissue Severity: Fat Layer Exposed Amount of bleeding with debridement: Mild Bleeding Controlled with: Pressure Patient tolerated procedure well Assessment/Plan Active Problems Venous stasis dermatitis of both lower extremities (Chronic) T2DM (type 2 diabetes mellitus) (Chronic) Rheumatoid arthritis (Chronic) CKD (chronic kidney disease), stage III (Chronic) Edema of both lower extremities (Chronic) Traumatic ulcer of left lower leg (Chronic) Assessment: 1. Traumatic ulcer of left lower leg. 2. Edema of bilteral lower legs, chronic. 3. T2DM, insulin-dependent, chronic. 4. Rheumatoid arthritis, chronic. 5. CKD, stage III, chronic Plan: Patient was evaluated today at the wound healing center. A subcutaneous debridement was performed, patient tolerated the procedure well. She has been using arun and adaptic on her ulcer with double layer Tubigrip's for compression. A wound culture was obtained on 06/05/2020 showed Pseudomonas and MRSA and patient was placed on Levaquin. Patient tolerating the antibiotic well. Her most recent arterial studies are as follows. Unclear if she ever followed up with a vascular surgeon. Arterial studies from 10/08/2019 showed the following: Right MONAE (DP and PT) non-calculable; left MONAE (DP and PT) non-calculable; right DBI 0.71; left DBI 0.74; there is evidence of arterial calcification at ankle level bilaterally; there is no evidence of significant arterial occlusive disease in the lower extremities bilaterally (see report for full details). Venous studies from 10/08/2019 showed the following:The deep veins of the lower extremities are bilaterally patent and compressible segmentally. Valvular competence appears intact within the proximal deep venous systems bilaterally. The right great saphenous vein appears competent above the knee, but incompetent below the knee. The left great saphenous vein appears segmentally competent. Pulsatile flow was noted in the deep venous system bilaterally, which may be indicative of elevated central venous pressure (i.e. congestive heart failure, tricuspid valve insufficiency, etc.). See report for full details. Follow-up one week. Given the fact that she has failed standard wound care for greater than 4 weeks will apply for advanced skin substitute. This note was generated with [employer] software. It may contain incorrect words, spelling, and punctuation that were not noted in checking the note before signing. [id number]: [id number] Nery subq tissue 20 sq cm/<
[2020-06-22 14:02] VITALS: BP 116/73; PULSE 60; RESP 18; TEMP 36.1; BMI 34.3
--- NOTE | 2020-06-22 15:37 | PN.PCM_ITS ---
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 Code(s): L97.929 - Non-pressure chronic ulcer of unspecified part of left lower leg with unspecified severity (2) CKD (chronic kidney disease), stage III Status: Chronic Code(s): N18.3 - Chronic kidney disease, stage 3 (moderate) (3) Edema of both lower extremities Status: Chronic Code(s): R60.0 - Localized edema (4) Rheumatoid arthritis Status: Chronic Code(s): M06.9 - Rheumatoid arthritis, unspecified (5) T2DM (type 2 diabetes mellitus) Status: Chronic Qualifiers: Diabetes mellitus [facility] insulin use: with [facility] use Diabetes mellitus complication status: with skin complications Diabetes mellitus complication detail: with other skin ulcer Qualified Code(s): E11.622 - Type 2 diabetes mellitus with other skin ulcer; Z79.4 - supervisor intermediates (current) use of insulin Code(s): E11.9 - Type 2 diabetes mellitus without complications (6) Venous stasis dermatitis of both lower extremities Status: Chronic Code(s): I87.2 - Venous insufficiency (chronic) (peripheral) Type of Wound Date of Service: 06/22/20 Chief Complaint: Non healing ulcer on left lower leg that occured in March when a watermelon rind hit her leg. History of Wound: Ms. Garcia is a pleasant 75-year-old female who [facility] for non healing traumatic ulcer of left lower leg caused in March from a watermelon rind. Her PCP, Dr. Stewart has been treating this ulcer with collagen hydrogel and adaptic. She also has been on Bactrim prescribed by Dr. Stewart. She has been evaluated and treated at the [facility] in the past with the most recent being this past spring. Patient has bilateral lower extremity edema and states that she has leg pumps at home that she has not been using lately to help with her edema. Patient has a PMH significant for T2 DM, RA, CKD stage III. Arterial studies from 10/08/2019 showed the following: Right MONAE (DP and PT) non-calculable; left MONAE (DP and PT) non-calculable; right DBI 0.71; left DBI 0.74; there is evidence of arterial calcification at ankle level bilaterally; there is no evidence of significant arterial occlusive disease in the lower extremities bilaterally (see report for full details). Venous studies from 10/08/2019 showed the following:The deep veins of the lower extremities are bilaterally patent and compressible s egmentally. Valvular competence appears intact within the proximal deep venous systems bilaterally. The right great saphenous vein appears competent above the knee, but incompetent below the knee. The left great saphenous vein appears segmentally competent. Pulsatile flow was noted in the deep venous system bilaterally, which may be indicative of elevated central venous pressure (i.e. congestive heart failure, tricuspid valve insufficiency, etc.). See report for full details. Today she denies any fever, chills, nausea or vomiting. Progress of Wound: Stable tolerating levaquin well for her recent MRSA and pseudomonas culture, Left lower extremity ulcer stable - Physical Exam Vital Signs Temp Pulse Resp BP 97 F L 60 18 116/73 06/22/20 14:02 06/22/20 14:02 06/22/20 14:02 06/22/20 14:02 General: Alert, Oriented x3, Cooperative, No apparent distress HEENT: Atraumatic Oral: Moist Mucosa Lungs: Clear to auscultation, Normal air movement Cardiovascular: Regular rate Abdomen: Soft, Non Tender Extremities: No clubbing, No cyanosis, Edema - 3+ pitting bilateral lower extremity edema, Peripheral Pulses Normal Skin: Ulcer/ Wound - See nursing documentation, left venous leg ulcer with slough and devitalized tissue, no signs of infection at this time, chronic venous changes to bilateral lower extremity with chronic rubor, no heat noted Wound Measurements and Assessment WC - Nurse 1 - General Ulcer Measurement Start: 06/05/20 11:35 Freq: Status: Active Protocol: Activity Type Activity Date Activity User E-Sign Co-Sign Detail Recorded Client Recorded Date Recorded By Document 06/22/20 14:02 RB [id number] 06/22/20 14:04 RB 06/22/20 14:02 Wound Center Nurse 1 [Ulcer Assessment] #4 L Lower Leg -Combined with other wound No -Current Size (cm) - Length 1.3 -Current Size (cm) - Width 1 -Current Size (cm) - Depth 0.2 -Total Square Cm 1.3 -Tunneling No -Undermining/Tunneling No -Circular Undermining No -Exudate Amt Small -Exudate Type Serosanguineous -Wound Margin Thickened & Rolled Under -Granulation Amt Medium (34-66%) -Granulation Quality [place] -Slough/Fibrin Yes -Necrosis Amt Small (1-33%) -Necrotic Tissue Type Adherent Slough -Structure Exposed N/A -Texture (Stefany-wound Skin Appearance) Assessed -Moisture (Stefany-wound Skin Appearance Assessed ) -Color (Stefany-wound Skin Appearance) Erythema -Temperature (Stefany-wound Skin No Abnormality Appearance) (Pt Warm) -Tenderness on Palpation (Stefany-wound No Skin Appearance) -Ulcer Cleansing Wound Cleanser -Foul Odor after Cleansing No -Anesthetic Used 5% Lidocaine Gel [Edema Assessment] -Lower Limb Edema Present Yes -Left Calf (cm) 36 -Left Ankle (cm) 23.2 WC - Nurse 2 - General Ulcer CM Notes Start: 06/05/20 11:35 Freq: Status: Active Protocol: Activity Type Activity Date Activity User E-Sign Co-Sign Detail Recorded Client Recorded Date Recorded By Document 06/22/20 14:10 MW [id number] 06/22/20 14:15 MW 06/22/20 14:10 Wound Center Nurse 2 [Procedure/Treatment] #4 L Lower Leg -Time 14:10 -Correct Patient Yes -Correct Side, Site, Position Yes -Correct Procedure Yes -Procedure Performed Yes -Type of Procedure Debridement -Clinical Debridement Subcutaneous -Tissue Removed Subcutaneous -Post Debridement (cm) - Length 1.6 -Post Debridement (cm) - Width 1.1 -Post Debridement (cm) - Depth 0.2 -Total Square (Post) (cm) 1.76 -Area of Debridement (cm) - Length 1.6 -Area of Debridement (cm) - Width 1.1 -Total Square (Area) (cm) 1.76 -Tunneling No -Undermining/Tunneling No -Circular Undermining No -Wound/Ulcer Outcome Not Healed -Ulcer Cleansing Rinsed/ Irrigated with Saline -Foul Odor after Cleansing No -Bioengineered Tissue No -Bleeding Controlled with Pressure -Offloading No -Treatment Response Procedure Tolerated Well -Debridement - Subq, 1st 20sq cm Yes [See Physician Procedure note for Specifics] Pain Scale: 0-10 Numeric [Pain] -Is Patient Pain Free? Yes ROBERT - Nurse 3 - General Ulcer D/C NN Start: 06/05/20 11:35 Freq: Status: Active Protocol: Activity Type Activity Date Activity User E-Sign Co-Sign Detail Recorded Client Recorded Date Recorded By Document 06/22/20 14:26 KR [id number] 06/22/20 14:27 KR 06/22/20 14:26 Wound Care Nurse 3 [Wound Dressing] #4 L Lower Leg -Ulcer Cleansing Rinsed/ Irrigated with Saline -Foul Odor after Cleansing No -Primary Dressing Applied NonAdherent Contact Layer, Promogran Cristina Matter -Primary Dressing Covered/Secured Dry Gauze & with Roll Gauze, Secured with Tape -Promogran Cristina Matter 1 [Compression Applied] Left -Lotion applied to leg before No compression wrap -Multi-Layered Wrap Application Multi-Layer Comp - Bilat ($ ) Pain Scale: 0-10 Numeric [Pain] -Is Patient Pain Free? Yes WC - Visit Discharge [Visit Discharge Information] -Discharge Condition Stable -Ambulatory Status Walker -Transportation Private Auto Neurological: Neuro grossly intact Psych/Mental Status: Normal Affect, Appropriate, Alert and oriented to time, place, person, mood and affect Debridement Note Post-Debridement Measurements/Treatment WC - Nurse 2 - General Ulcer CM Notes Start: 06/05/20 11:35 Freq: Status: Active Protocol: Activity Type Activity Date Activity User E-Sign Co-Sign Detail Recorded Client Recorded Date Recorded By Document 06/05/20 12:16 JF [id number] 06/05/20 12:18 JF Document 06/15/20 13:31 MW [id number] 06/15/20 13:35 MW Document 06/22/20 14:10 MW [id number] 06/22/20 14:15 MW 06/05/20 06/15/20 06/22/20 12:16 13:31 14:10 Wound Center Nurse 2 #4 L Lower Leg -Time 12:17 13:34 14:10 -Correct Patient Yes Yes Yes -Correct Side, Site, Position Yes Yes Yes -Correct Procedure Yes Yes Yes -Procedure Performed Yes Yes Yes -Type of Procedure Debridement Debridement Debridement -Clinical Debridement Subcutaneous Subcutaneous Subcutaneous -Tissue Removed Subcutaneous Subcutaneous Subcutaneous -Post Debridement (cm) - Length 1.7 1.6 1.6 -Post Debridement (cm) - Width 1.3 1.2 1.1 -Post Debridement (cm) - Depth 0.3 0.2 0.2 -Total Square (Post) (cm) 2.21 1.92 1.76 -Area of Debridement (cm) - Length 1.7 1.6 1.6 -Area of Debridement (cm) - Width 1.3 1.2 1.1 -Total Square (Area) (cm) 2.21 1.92 1.76 -Tunneling No No No -Undermining/Tunneling No No No -Circular Undermining No No No -Wound/Ulcer Outcome Not Healed Not Healed Not Healed -Ulcer Cleansing Rinsed/ Rinsed/ Rinsed/ Irrigated with Irrigated with Irrigated with Saline Saline Saline -Foul Odor after Cleansing No No No -Bioengineered Tissue No No No -Bleeding Controlled with Pressure Pressure Pressure -Offloading No No No -Treatment Response Procedure Procedure Procedure Tolerated Well Tolerated Well Tolerated Well -Debridement - Subq, 1st 20sq cm Yes Yes Yes Pain Scale: 0-10 Numeric Is Patient Pain Free? Yes Yes Yes WC - Nurse 3 - General Ulcer D/C NN Start: 06/05/20 11:35 Freq: Status: Active Protocol: Activity Type Activity Date Activity User E-Sign Co-Sign Detail Recorded Client Recorded Date Recorded By Document 06/05/20 12:27 [facility] [id number] 06/05/20 12:28 [facility] Document 06/15/20 13:58 RB [id number] 06/15/20 14:00 RB Document 06/22/20 14:26 KR [id number] 06/22/20 14:27 KR 06/05/20 06/15/20 06/22/20 12:27 13:58 14:26 Wound Care Nurse 3 #4 L Lower Leg -Ulcer Cleansing Rinsed/ Rinsed/ Rinsed/ Irrigated with Irrigated with Irrigated with Saline Saline Saline -Foul Odor after Cleansing No No -Primary Dressing Applied NonAdherent Promogran NonAdherent Contact Layer, Cristina Matter Contact Layer, Promogran Promogran Cristina Matter Cristina Matter -Primary Dressing Covered/Secured with Dry Gauze & Dry Gauze,Dry Dry Gauze & Roll Gauze, Gauze & Roll Roll Gauze, Secured with Gauze,Secured Secured with Tape with Tape Tape -Promogran Cristina Matter 1 1 1 Left -Lotion applied to leg before No compression wrap -Multi-Layered Wrap Application Multi-Layer Comp - Bilat ($ ) -Tubular Bandage Single Layer Single Layer -Size of Tubigrip Used Size C Size C -Size C ($) 1 1 -Stockings Yes Treatment Response Procedure Tolerated Well Vital Signs Blood Pressure (90/60-120/80) 132/56 H Blood Pressure Mean (mm Hg) 81 Source Monitor Position Semi-Fowlers Blood Pressure Location Left Arm Pain Scale: 0-10 Numeric Is Patient Pain Free? Yes No Yes Teaching: Wound Center Control Swelling with Leg Elevation -Person Taught Patient -Teaching Method Discussion -Response to teaching Verbalize understanding WC - Visit Discharge Discharge Condition Stable Stable Stable Ambulatory Status Ambulatory, Ambulatory, Walker Walker Walker Transportation Private Auto Private Auto Private Auto Medication Reconcilliation completed & No provided to patient/care provider Clinical Summary of Care Provided Yes Wound debrided: Left venous leg ulcer Laterality: Left Type of Debridement: Excisional debridement Anesthesia Used: 5% Lidocaine Gel Depth: in the subcutaneous layer Percentage of wound debrided: 100 Instrument Used: 3mm curette Tissue Removed: Slough and devitalized tissue Severity: Fat Layer Exposed Amount of bleeding with debridement: Mild Bleeding Controlled with: Pressure Patient tolerated procedure well Assessment/Plan Active Problems Venous stasis dermatitis of both lower extremities (Chronic) T2DM (type 2 diabetes mellitus) (Chronic) Rheumatoid arthritis (Chronic) CKD (chronic kidney disease), stage III (Chronic) Edema of both lower extremities (Chronic) Traumatic ulcer of left lower leg (Chronic) Assessment: 1. Traumatic ulcer of left lower leg. 2. Edema of bilteral lower legs, chronic. 3. T2DM, insulin-dependent, chronic. 4. Rheumatoid arthritis, chronic. 5. CKD, stage III, chronic Plan: Patient was evaluated today at the wound healing center. A subcutaneous debridement was performed, patient tolerated the procedure well. Given the significant swelling, a lightly wrapped 3M wrap was utilized today and the wound was covered with double layer Cristina. A wound culture was obtained on 06/05/2020 showed Pseudomonas and MRSA and patient was placed on Levaquin. Patient tolerating the antibiotic well. Her most recent arterial studies are as follows. Unclear if she ever followed up with a vascular surgeon. Arterial stud ies from 10/08/2019 showed the following: Right MONAE (DP and PT) non-calculable; left MONAE (DP and PT) non-calculable; right DBI 0.71; left DBI 0.74; there is evidence of arterial calcification at ankle level bilaterally; there is no evidence of significant arterial occlusive disease in the lower extremities bilaterally (see report for full details). Venous studies from 10/08/2019 showed the following:The deep veins of the lower extremities are bilaterally patent and compressible segmentally. Valvular competence appears intact within the proximal deep venous systems bilaterally. The right great saphenous vein appears competent above the knee, but incompetent below the knee. The left great saphenous vein appears segmentally competent. Pulsatile flow was noted in the deep venous system bilaterally, which may be indicative of elevated central venous pressure (i.e. congestive heart failure, tricuspid valve insufficiency, etc.). See report for full details. Follow-up one week. Given the fact that she has failed standard wound care for greater than 4 weeks will apply for advanced skin substitute. Advised patient that if she cannot tolerate the compression then she may remove it and go back to using double layer Tubigrip's. This note was generated with [employer] software. It may contain incorrect words, spelling, and punctuation that were not noted in checking the note before signing. [id number]: [id number] Nery subq tissue 20 sq cm/<
[2020-06-28 14:03] VITALS: BP 116/54; PULSE 62; RESP 18; BMI 34.3
--- NOTE | 2020-06-30 11:48 | PN.PCM_ITS ---
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 Code(s): L97.929 - Non-pressure chronic ulcer of unspecified part of left lower leg with unspecified severity (2) CKD (chronic kidney disease), stage III Status: Chronic Code(s): N18.3 - Chronic kidney disease, stage 3 (moderate) (3) Edema of both lower extremities Status: Chronic Code(s): R60.0 - Localized edema (4) Rheumatoid arthritis Status: Chronic Code(s): M06.9 - Rheumatoid arthritis, unspecified (5) T2DM (type 2 diabetes mellitus) Status: Chronic Qualifiers: Diabetes mellitus alf insulin use: with alf use Diabetes mellitus complication status: with skin complications Diabetes mellitus complication detail: with other skin ulcer Qualified Code(s): E11.622 - Type 2 diabetes mellitus with other skin ulcer; 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 History of Wound: Ms. Garcia is a pleasant 75-year-old female who [facility] for non healing traumatic ulcer of left lower leg caused in March from a watermelon rind. Her PCP, Dr. Stewart has been treating this ulcer with collagen hydrogel and adaptic. She also has been on Bactrim prescribed by Dr. Stewart. She has been evaluated and treated at the [facility] in the past with the most recent being this past spring. Patient has bilateral lower extremity edema and states that she has leg pumps at home that she has not been using lately to help with her edema. Patient has a PMH significant for T2 DM, RA, CKD stage III. Arterial studies from 10/08/2019 showed the following: Right MONAE (DP and PT) non-calculable; left MONAE (DP and PT) non-calculable; right DBI 0.71; left DBI 0.74; there is evidence of arterial calcification at ankle level bilaterally; there is no evidence of significant arterial occlusive disease in the lower extremities bilaterally (see report for full details). Venous studies from 10/08/2019 showed the following:The deep veins of the lower extremities are bilaterally patent and compressible s egmentally. Valvular competence appears intact within the proximal deep venous systems bilaterally. The right great saphenous vein appears competent above the knee, but incompetent below the knee. The left great saphenous vein appears segmentally competent. Pulsatile flow was noted in the deep venous system bilaterally, which may be indicative of elevated central venous pressure (i.e. congestive heart failure, tricuspid valve insufficiency, etc.). See report for full details. Today she denies any fever, chills, nausea or vomiting. Progress of Wound: Stable tolerating levaquin well for her recent MRSA and pseudomonas culture, Left lower extremity ulcer stable, Pending approval for advanced skin substitute, notes that the 3M wraps were too tight and would like to trial a men's custom hair piece consultant compression, Significantly less swelling today - Physical Exam Vital Signs Temp Pulse Resp BP 97 F L 62 18 116/54 L 06/22/20 14:02 06/28/20 14:03 06/28/20 14:03 06/28/20 14:03 General: Alert, Oriented x3, Cooperative, No apparent distress HEENT: Atraumatic Oral: Moist Mucosa Lungs: Clear to auscultation Cardiovascular: Regular rate Abdomen: Soft, Non Tender, Obese Extremities: Edema - Generalized bilateral lower extremity edema, Peripheral Pulses Normal Skin: Ulcer/ Wound - See nursing documentation, slough and devitalized tissue present, no signs of infection at this time Wound Measurements and Assessment WC - Nurse 1 - General Ulcer Measurement Start: 06/05/20 11:35 Freq: Status: Active Protocol: Activity Type Activity Date Activity User E-Sign Co-Sign Detail Recorded Client Recorded Date Recorded By Document 06/28/20 14:03 MO [id number] 06/28/20 14:14 MO 06/28/20 14:03 Wound Center Nurse 1 [Ulcer Assessment] #4 L Lower Leg -Current Size (cm) - Length 1.0 -Current Size (cm) - Width 1.0 -Current Size (cm) - Depth 0.1 -Total Square Cm 1.00 -Exudate Amt Small -Exudate Type Serosanguineous -Wound Margin Flat & Intact -Granulation Amt Large (67-100%) -Granulation Quality Pale,Remer -Necrosis Amt Small (1-33%) -Necrotic Tissue Type Adherent Slough -Texture (Stefany-wound Skin Appearance) Assessed -Moisture (Stefany-wound Skin Appearance Assessed, ) Maceration -Color (Stefany-wound Skin Appearance) Assessed, Hemosiderin Staining -Temperature (Stefany-wound Skin No Abnormality Appearance) (Pt Warm) -Tenderness on Palpation (Stefany-wound No Skin Appearance) -Ulcer Cleansing Rinsed/ Irrigated with Saline -Foul Odor after Cleansing No -Anesthetic Used 4% Lidocaine Solution [Edema Assessment] -Right Calf (cm) 36.5 -Right Ankle (cm) 23 -Left Calf (cm) 35 -Left Ankle (cm) 22 WC - Nurse 2 - General Ulcer CM Notes Start: 06/05/20 11:35 Freq: Status: Active Protocol: Activity Type Activity Date Activity User E-Sign Co-Sign Detail Recorded Client Recorded Date Recorded By Document 06/28/20 14:29 MW [id number] 06/28/20 14:31 MW 06/28/20 14:29 Wound Center Nurse 2 [Procedure/Treatment] #4 L Lower Leg -Time 14:29 -Correct Patient Yes -Correct Side, Site, Position Yes -Correct Procedure Yes -Procedure Performed Yes -Type of Procedure Debridement -Clinical Debridement Subcutaneous -Tissue Removed Subcutaneous -Post Debridement (cm) - Length 1.7 -Post Debridement (cm) - Width 1.0 -Post Debridement (cm) - Depth 0.2 -Total Square (Post) (cm) 1.70 -Area of Debridement (cm) - Length 1.7 -Area of Debridement (cm) - Width 1.0 -Total Square (Area) (cm) 1.70 -Tunneling No -Undermining/Tunneling No -Circular Undermining No -Wound/Ulcer Outcome Not Healed -Ulcer Cleansing Rinsed/ Irrigated with Saline -Foul Odor after Cleansing No -Bioengineered Tissue No -Bleeding Controlled with Pressure -Offloading No -Debridement - Subq, 1st 20sq cm Yes [See Physician Procedure note for Specifics] Pain Scale: 0-10 Numeric [Pain] -Is Patient Pain Free? Yes ROBERT - Nurse 3 - General Ulcer D/C NN Start: 06/05/20 11:35 Freq: Status: Active Protocol: Activity Type Activity Date Activity User E-Sign Co-Sign Detail Recorded Client Recorded Date Recorded By Document 06/28/20 14:46 KR [id number] 06/28/20 14:47 KR 06/28/20 14:46 Wound Care Nurse 3 [Wound Dressing] #4 L Lower Leg -Ulcer Cleansing Rinsed/ Irrigated with Saline -Foul Odor after Cleansing No -Negative Pressure Wound Therapy N/A -Primary Dressing Applied Aquacel Extra, NonAdherent Contact Layer -Primary Dressing Covered/Secured Dry Gauze & with Roll Gauze -Aquacel Extra 1 Pain Scale: 0-10 Numeric [Pain] -Is Patient Pain Free? Yes WC - Visit Discharge [Visit Discharge Information] -Discharge Condition Stable -Ambulatory Status Walker -Transportation Private Auto Neurological: Neuro grossly intact Psych/Mental Status: Normal Affect, Appropriate Debridement Note Post-Debridement Measurements/Treatment WC - Nurse 2 - General Ulcer CM Notes Start: 06/05/20 11:35 Freq: Status: Active Protocol: Activity Type Activity Date Activity User E-Sign Co-Sign Detail Recorded Client Recorded Date Recorded By Document 06/05/20 12:16 JF [id number] 06/05/20 12:18 JF Document 06/15/20 13:31 MW [id number] 06/15/20 13:35 MW Document 06/22/20 14:10 MW [id number] 06/22/20 14:15 MW Document 06/28/20 14:29 MW [id number] 06/28/20 14:31 MW 06/05/20 06/15/20 06/22/20 12:16 13:31 14:10 Wound Center Nurse 2 #4 L Lower Leg -Time 12:17 13:34 14:10 -Correct Patient Yes Yes Yes -Correct Side, Site, Position Yes Yes Yes -Correct Procedure Yes Yes Yes -Procedure Performed Yes Yes Yes -Type of Procedure Debridement Debridement Debridement -Clinical Debridement Subcutaneous Subcutaneous Subcutaneous -Tissue Removed Subcutaneous Subcutaneous Subcutaneous -Post Debridement (cm) - Length 1.7 1.6 1.6 -Post Debridement (cm) - Width 1.3 1.2 1.1 -Post Debridement (cm) - Depth 0.3 0.2 0.2 -Total Square (Post) (cm) 2.21 1.92 1.76 -Area of Debridement (cm) - Length 1.7 1.6 1.6 -Area of Debridement (cm) - Width 1.3 1.2 1.1 -Total Square (Area) (cm) 2.21 1.92 1.76 -Tunneling No No No -Undermining/Tunneling No No No -Circular Undermining No No No -Wound/Ulcer Outcome Not Healed Not Healed Not Healed -Ulcer Cleansing Rinsed/ Rinsed/ Rinsed/ Irrigated with Irrigated with Irrigated with Saline Saline Saline -Foul Odor after Cleansing No No No -Bioengineered Tissue No No No -Bleeding Controlled with Pressure Pressure Pressure -Offloading No No No -Treatment Response Procedure Procedure Procedure Tolerated Well Tolerated Well Tolerated Well -Debridement - Subq, 1st 20sq cm Yes Yes Yes Pain Scale: 0-10 Numeric Is Patient Pain Free? Yes Yes Yes 06/28/20 14:29 Wound Center Nurse 2 #4 L Lower Leg -Time 14:29 -Correct Patient Yes -Correct Side, Site, Position Yes -Correct Procedure Yes -Procedure Performed Yes -Type of Procedure Debridement -Clinical Debridement Subcutaneous -Tissue Removed Subcutaneous -Post Debridement (cm) - Length 1.7 -Post Debridement (cm) - Width 1.0 -Post Debridement (cm) - Depth 0.2 -Total Square (Post) (cm) 1.70 -Area of Debridement (cm) - Length 1.7 -Area of Debridement (cm) - Width 1.0 -Total Square (Area) (cm) 1.70 -Tunneling No -Undermining/Tunneling No -Circular Undermining No -Wound/Ulcer Outcome Not Healed -Ulcer Cleansing Rinsed/ Irrigated with Saline -Foul Odor after Cleansing No -Bioengineered Tissue No -Bleeding Controlled with Pressure -Offloading No -Treatment Response -Debridement - Subq, 1st 20sq cm Yes Pain Scale: 0-10 Numeric Is Patient Pain Free? Yes - Nurse 3 - General Ulcer D/C NN Start: 06/05/20 11:35 Freq: Status: Active Protocol: Activity Type Activity Date Activity User E-Sign Co-Sign Detail Recorded Client Recorded Date Recorded By Document 06/05/20 12:27 BM [id number] 06/05/20 12:28 BMF Document 06/15/20 13:58 RB [id number] 06/15/20 14:00 RB Document 06/22/20 14:26 KR [id number] 06/22/20 14:27 KR Document 06/28/20 14:46 KR [id number] 06/28/20 14:47 KR 06/05/20 06/15/20 06/22/20 12:27 13:58 14:26 Wound Care Nurse 3 #4 L Lower Leg -Ulcer Cleansing Rinsed/ Rinsed/ Rinsed/ Irrigated with Irrigated with Irrigated with Saline Saline Saline -Foul Odor after Cleansing No No -Negative Pressure Wound Therapy -Primary Dressing Applied NonAdherent Promogran NonAdherent Contact Layer, Cristina Matter Contact Layer, Promogran Promogran Cristina Matter Cristina Matter -Primary Dressing Covered/Secured with Dry Gauze & Dry Gauze,Dry Dry Gauze & Roll Gauze, Gauze & Roll Roll Gauze, Secured with Gauze,Secured Secured with Tape with Tape Tape -Aquacel Extra -Promogran Cristina Matter 1 1 1 Left -Lotion applied to leg before No compression wrap -Multi-Layered Wrap Application Multi-Layer Comp - Bilat ($ ) -Tubular Bandage Single Layer Single Layer -Size of Tubigrip Used Size C Size C -Size C ($) 1 1 -Stockings Yes Treatment Response Procedure Tolerated Well Vital Signs Blood Pressure (90/60-120/80) 132/56 H Blood Pressure Mean (mm Hg) 81 Source Monitor Position Semi-Fowlers Blood Pressure Location Left Arm Pain Scale: 0-10 Numeric Is Patient Pain Free? Yes No Yes Teaching: Wound Center Control Swelling with Leg Elevation -Person Taught Patient -Teaching Method Discussion -Response to teaching Verbalize understanding WC - Visit Discharge Discharge Condition Stable Stable Stable Ambulatory Status Ambulatory, Ambulatory, Walker Walker Walker Transportation Private Auto Private Auto Private Auto Medication Reconcilliation completed & No provided to patient/care provider Clinical Summary of Care Provided Yes 06/28/20 14:46 Wound Care Nurse 3 #4 L Lower Leg -Ulcer Cleansing Rinsed/ Irrigated with Saline -Foul Odor after Cleansing No -Negative Pressure Wound Therapy N/A -Primary Dressing Applied Aquacel Extra, NonAdherent Contact Layer -Primary Dressing Covered/Secured with Dry Gauze & Roll Gauze -Aquacel Extra 1 -Promogran Cristina Matter Left -Lotion applied to leg before compression wrap -Multi-Layered Wrap Application -Tubular Bandage -Size of Tubigrip Used -Size C ($) -Stockings Treatment Response Vital Signs Blood Pressure (90/60-120/80) Blood Pressure Mean (mm Hg) Source Position Blood Pressure Location Pain Scale: 0-10 Numeric Is Patient Pain Free? Yes Teaching: Wound Center Control Swelling with Leg Elevation -Person Taught -Teaching Method -Response to teaching WC - Visit Discharge Discharge Condition Stable Ambulatory Status Walker Transportation Private Auto Medication Reconcilliation completed & provided to patient/care provider Clinical Summary of Care Provided Wound debrided: Nonhealing wound to left lower extremity Laterality: Left Type of Debridement: Excisional debridement Anesthesia Used: 5% Lidocaine Gel Depth: in the subcutaneous layer Percentage of wound debrided: 100 Instrument Used: 5mm curette Tissue Removed: Slough and devitalized tissue Severity: Fat Layer Exposed Amount of bleeding with debridement: Mild Bleeding Controlled with: Pressure Patient tolerated procedure well Assessment/Plan Active Problems Venous stasis dermatitis of both lower extremities (Chronic) T2DM (type 2 diabetes mellitus) (Chronic) Rheumatoid arthritis (Chronic) CKD (chronic kidney disease), stage III (Chronic) Edema of both lower extremities (Chronic) Traumatic ulcer of left lower leg (Chronic) Assessment: 1. Traumatic ulcer of left lower leg. 2. Edema of bilteral lower legs, chronic. 3. T2DM, insulin-dependent, chronic. 4. Rheumatoid arthritis, chronic. 5. CKD, stage III, chronic Plan: Patient was evaluated today at the wound healing center. A subcutaneous debridement was performed, patient tolerated the procedure well. Given the significant swelling, a lightly wrapped Unna boot was utilized today and the wound was covered with double layer Aquacel. A wound culture was obtained on 06/05/2020 showed Pseudomonas and MRSA and patient was placed on Levaquin. Patient tolerating the antibiotic well. Her most recent arterial studies are as follows. Unclear if she ever followed up with a vascular surgeon. Arterial studies from 10/08/2019 showed the following: Right MONAE (DP and PT) non- calculable; left MONAE (DP and PT) non-calculable; right DBI 0.71; left DBI 0.74; there is evidence of arterial calcification at ankle level bilaterally; there is no evidence of significant arterial occlusive disease in the lower extremities bilaterally (see report for full details). Venous studies from 10/08/2019 showed the following:The deep veins of the lower extremities are bilaterally patent and compressible segmentally. Valvular competence appears intact within the proximal deep venous systems bilaterally. The right great saphenous vein appears competent above the knee, but incompetent below the knee. The left great saphenous vein appears segmentally competent. Pulsatile flow was noted in the deep venous system bilaterally, which may be indicative of elevated central venous pressure (i.e. congestive heart failure, tricuspid valve insufficiency, etc.). See report for full details. Follow-up one week. Given the fact that she has failed standard wound care for greater than 4 weeks will apply for advanced skin substitute. Advised patient that if she cannot tolerate the compression then she may remove it and go back to using double layer Tubigrip's. This note was generated with [employer] dictation software. It may contain incorrect words, spelling, and punctuation that were not noted in checking the note before signing. [id number]: [id number] Nery subq tissue 20 sq cm/<
== END 2020-07-03 23:59 ==
LOC: WC 13:45
PROVIDERS: PCP Family Medicine; Visit Provider Nurse Practitioner Family
DX: E11.621 Type 2 diabetes mellitus with foot ulcer (principal); I83.018 Varicose veins of right lower extremity with ulcer other part of lower leg; L97.812 Non-pressure chronic ulcer of other part of right lower leg with fat layer exposed; B95.62 Methicillin resistant Staphylococcus aureus infection as the cause of diseases classified elsewhere; B96.5 Pseudomonas (aeruginosa) (mallei) (pseudomallei) as the cause of diseases classified elsewhere; T14.8XXS Other injury of unspecified body region, sequela; W22.8XXS Striking against or struck by other objects, sequela; E11.22 Type 2 diabetes mellitus with diabetic chronic kidney disease; N18.30 Chronic kidney disease, stage 3 unspecified; M06.9 Rheumatoid arthritis, unspecified; R60.0 Localized edema; Z79.4 Long term (current) use of insulin; Z79.82 Long term (current) use of aspirin; Z79.899 Other long term (current) drug therapy
CPT/HCPCS: 11042; 29580; 29581; 87070; 87075; 87077; 87186; 87205; 99213; G0463

== ENCOUNTER 2021-03-21 13:47 | Inpatient (IN) | payer MEDICARE, SELFPAY ==
[2021-03-21] VITALS (16 sets, daily range): BP systolic 91–138; BP diastolic 42–84; PULSE 56–81; RESP 13–20; TEMP 36.6–36.9; O2SAT 86–99; BMI 30.2; BMI 34.7
--- NOTE | 2021-03-21 14:42 | EKG12_ITS ---
Test Reason : Blood Pressure : / mmHG Vent. Rate : 068 BPM Atrial Rate : 068 BPM P-R Int : 252 ms QRS Dur : 090 ms QT Int : 458 ms P-R-T Axes : 057 079 050 degrees QTc Int : 487 ms Sinus rhythm with 1st degree A-V block Otherwise normal ECG Confirmed by NILAY MURRAY, JUSTINA ([id number]), movie editor LEANN BLANTON ([id number]) on 03/28/2021 8:57:12 AM Referred By: CORTNEY Confirmed By:JUSTINA PEMBERTON MD
--- NOTE | 2021-03-21 14:44 | EX.ED.DYSGE1 ---
HPI History of Present Illness Chief Complaint: Hyperglycemia Informant: patient and family Onset/Context/Timing Onset: Weeks (1-2) Context: Gradual Onset Timing: Continuous Quality: Weakness Location: Generalized Worsened by: Nothing Relieved by: Nothing Associated Symptoms Associated Symptoms: Decreased appetite Narrative Narrative: Patient presents with elevated blood sugars that have been getting worse over the past 1 to 2 weeks. Patient states she feels weak all over. Patient is currently on Bactrim for urinary tract infection. Patient admits to some urinary frequency but denies any dysuria or hematuria. Patient also admits to episodes of some subjective chills. Patient admits to decreased appetite. Patient states nothing makes her symptoms better nothing makes them worse. Daughter states patient has passed out a couple of times over the last couple weeks. [facility] Medical History (Updated 03/21/21 @ 16:[address] Marco Antonio Freire, ) Age related osteoporosis Anemia Arthritis Cardiac murmur Carpal tunnel syndrome Heart disease Hip fracture requiring operative repair Hypertension Osteoarthritis Type 2 diabetes mellitus without complications Home Medications ferrous sulfate 325 mg PO DAILY 08/14/17 [History Last Taken 11/05/19] pramipexole 2 mg PO QHS 08/14/17 [History Last Taken 11/04/19] sennosides-docusate sodium 2 tab PO BID PRN PRN #0 tab 11/08/19 [Rx Last Taken Unknown] alendronate 70 mg tablet 70 mg PO QWEEK 08/10/20 [History Last Taken Unknown] gabapentin 100 mg capsule 100 mg PO Q6H cap 08/10/20 [History Last Taken Unknown] pen needle, diabetic 32 gauge x 5/32 #100 ea 08/10/20 [Rx Last Taken Unknown] furosemide 40 mg tablet 40 mg PO DAILY tablet 11/09/20 [History Last Taken Unknown] oxycodone 10 mg tablet 10 ea PO Q6H PRN PRN 11/09/20 [History Last Taken Unknown] propranolol 40 mg tablet 40 mg PO BID tablet 11/09/20 [History Last Taken Unknown] blood sugar diagnostic #100 each 11/14/20 [Rx Last Taken Unknown] insulin lispro 3 unit SUBCUT TID 03/21/21 [History Last Taken Unknown] insulin lispro protamin-lispro [Humalog Mix 50-50 KwikPen] 8 unit SUBCUT QHS 03/21/21 [History Last Taken Unknown] insulin lispro protamin-lispro [Humalog Mix 50-50 KwikPen] 10 unit SC BREAKFAST 03/21/21 [History Last Taken Unknown] sulfamethoxazole-trimethoprim 1 tab PO BID 03/21/21 [History Last Taken Unknown] Allergy/AdvReac Type Severity Reaction Status Date / Time No Known Allergies Allergy Verified 03/21/21 13:54 Surgical History History of back surgery History of gastric bypass Social History Smoking Status: Never smoker ROS ROS ED Constitutional Constitutional ED: Reports chills and subjective; Denies fever(s) Eyes Eyes: Denies blurry vision or change in vision ENT ENT ED: Reports rhinorrhea; Denies sore throat Cardiovascular Cardiovascular: Denies chest pain or palpitations Respiratory/Chest Respiratory/Chest: Denies cough or dyspnea Gastrointestinal Gastrointestinal: Denies nausea or vomiting Genitourinary Genitourinary ED: Reports urinary frequency; Denies dysuria or hematuria Musculoskeletal Musculoskeletal: Reports neck pain; Denies back pain Integumentary Denies abscess or rash Neurologic Neurologic: Reports headache(s) and weakness Allergic/Immunologic Allergic/Immunologic ED: Denies mouth swelling or urticaria EXAM Physical Exam Const Vital Signs: 03/21/21 13:48 03/21/21 15:07 03/21/21 15:40 Temperature 98 F Temperature Source Temporal Pulse Rate 77 81 Respiratory Rate 18 16 Respiratory Effort Normal Non-Labored Respiratory Pattern Normal Blood Pressure 138/65 H 135/84 H Blood Pressure Mean 89 101 Pulse Ox 95 96 Oxygen Delivery Method Room Air Room Air 03/21/21 16:25 Temperature Temperature Source Pulse Rate 70 Respiratory Rate 20 H Respiratory Effort Respiratory Pattern Blood Pressure 124/58 H Blood Pressure Mean 80 Pulse Ox 96 Oxygen Delivery Method Room Air Positive well nourished and well developed General Appearance ED: well developed HEENT Reports dry mucous membranes Mouth ED: Yes dry mucous membranes Mouth: dry mucous membranes Neck supple and no JVD General: tenderness Resp normal respiratory effort and clear to auscultation bilaterally Cardio regular rate and regular rhythm GI normal to inspection, nondistended, normoactive bowel sounds and non-tender Palpation: soft Neuro oriented x3, CN's II-XII intact bilaterally and no sensory deficits noted Sensorium / Orientation: alert Motor Exam: strength 5/5 throughout Psych mental status grossly normal MDM MDM MDM Narrative Medical decision making narrative: EKG was obtained. On my interpretation, it showed a sinus rhythm with a first-degree AV block with a rate of 68. QRS interval, and QTc intervals were normal. [place] was normal. There are no acute ST or T wave changes. Patient was given IV fluids. CBC showed a mild anemia with a hemoglobin of 11.6 hematocrit 36.9. Comprehensive metabolic profile showed a sodium of 129 and chloride of 95. BUN was elevated at 30 and creatinine was 1.9. Glucose was elevated at 639. Anion gap was normal. CO2 was normal. High-sensitivity troponin was elevated at 492. Serum acetone was negative. Urinalysis does not show any evidence of urinary tract infection. Portable 1 view chest x-ray was obtained. On my interpretation, lung bills are clear. There is normal cardiac silhouette. Bony thorax is normal. There is no acute process noted. Radiologist also interpreted the x-ray and a 1.7 cm x 2.6 cm nodular density along the medial aspect of the right upper lobe adjacent to the right side of the trachea. Correlation with CT scan was recommended. Patient was given aspirin. Patient was started on insulin drip. Case was discussed with the hospitalist. She will admit the patient to ICU. Patient and family understood and were agreeable with the plan. All questions were answered. Lab Data Attestation: I reviewed the patient's lab results. Labs: Laboratory Results - last 24 hr 03/21/21 03/21/21 03/21/21 15:10 15:10 15:10 WBC 9.7 RBC 4.10 L Hgb 11.7 L Hct 36.9 L MCV 90.0 MCH 28.5 MCHC 31.7 L RDW Std Deviation 41.0 RDW Coeff of Fady 12.5 Plt Count 197 MPV 10.7 Immature Gran % (Auto) 0.600 Neut % (Auto) 92.9 H Lymph % (Auto) 1.8 L [place] % (Auto) 4.5 Eos % (Auto) 0.0 Baso % (Auto) 0.2 Absolute Neuts (auto) 9.0 H Absolute Lymphs (auto) 0.17 L Nucleated RBC % 0 Differential Comment Platelet Estimate ADEQUATE RBC Morphology NORM C+C Sodium 129 L Potassium 4.1 Chloride 95 L Carbon Dioxide 24.0 Anion Gap 10 BUN 30 H Creatinine 1.90 H Estim Creat Clear Calc 27.48 Est GFR (MDRD) Af Amer 33 L Est GFR (MDRD) Non-Af 27 L BUN/Creatinine Ratio 15.8 Glucose 639 H* Calcium 8.0 L Total Bilirubin 0.40 AST 15 ALT 17 Alkaline Phosphatase 125 H Troponin I High Sens 492 H* Total Protein 6.3 L Albumin 2.6 L Globulin 3.7 Albumin/Globulin Ratio 0.7 L Urine Color Urine Clarity Urine pH Ur Specific [place] Urine Protein Urine Glucose (UA) Urine Ketones Urine Occult Blood Urine Nitrite Urine Bilirubin Urine Urobilinogen Ur Leukocyte Esterase Urine RBC Urine WBC Ur Squamous Epith Cells Urine Bacteria Urine Mucus Acetone Level NEGATIVE 03/21/21 15:35 WBC RBC Hgb Hct MCV MCH MCHC RDW Std Deviation RDW Coeff of Fady Plt Count MPV Immature Gran % (Auto) Neut % (Auto) Lymph % (Auto) [place] % (Auto) Eos % (Auto) Baso % (Auto) Absolute Neuts (auto) Absolute Lymphs (auto) Nucleated RBC % Differential Comment Platelet Estimate RBC Morphology Sodium Potassium Chloride Carbon Dioxide Anion Gap BUN Creatinine Estim Creat Clear Calc Est GFR (MDRD) Af Amer Est GFR (MDRD) Non-Af BUN/Creatinine Ratio Glucose Calcium Total Bilirubin AST ALT Alkaline Phosphatase Troponin I High Sens Total Protein Albumin Globulin Albumin/Globulin Ratio Urine Color Yellow Urine Clarity Clear Urine pH 6.0 Ur Specific [place] 1.010 Urine Protein 100 H Urine Glucose (UA) 1000 H Urine Ketones 15 H Urine Occult Blood 150 H Urine Nitrite Negative Urine Bilirubin Negative Urine Urobilinogen Normal Ur Leukocyte Esterase 25 H Urine RBC 0-5 SEEN Urine WBC 5-10 SEEN Ur Squamous Epith Cells 0-5 SEEN Urine Bacteria RARE Urine Mucus 0 SEEN Acetone Level Radiography Chest X-Ray - ED: 1 View, Read by ED Physician, Read by Radiologist and Chronic Changes Diagnostic Testing: Radiology Impression Chest X-Ray 03/21/21 15:40 IMPRESSION: 1.7 cm x 2.6 cm nodular density along the medial aspect of the right upper lobe adjacent to the right side of the trachea. Correlation with CT scan is recommended. Electronically Signed: Edward Stoll MD at 15:54 EDT , Service support , EKG Initial EKG: Attestation: I personally reviewed and interpreted this EKG as follows: Interpretation: Sinus Rhythm (With first-degree AV block with a rate of 68) and No Acute Injury Pattern Prior EKG tracings: available for review Prior: Unchanged (03/17/2020) Treatment and Re-Evaluation Vital Sign Attestation:: Vital signs were reviewed prior to admission. They are stable. Critical Care Time Critical Care Time: Yes Critical care time (excluding procedures): 30-74 minutes (36), Including time spent:, Discussing w/Patient &/or Family/Satellite Instruction Facilitator, Discussing w/Consultants, Arranging Admission or Transfer and Performing Direct Patient Care at Bedside Discharge Plan Dx/Rx/DC Orders Clinical Impression: Hyperosmolar hyperglycemic state (HHS), Non-ST elevated myocardial infarction (non-STEMI) Disposition Disposition: Acute Care Hospital [facility]
[2021-03-21] MEDS: Ondansetron 4 MG/2 ML Vial IV (15:06)
[2021-03-21 15:17] LABS: Absolute Lymphocyte Count 0.17 X10^3/uL (0.83-4.51); Basophil# 0.02 X10^3/uL; Basophil% 0.2 % (0-1); Hematocrit 36.9 % (37-47); Hemoglobin 11.7 g/dL (12.0-15.0); Lymphocyte # 0.17 X10^3/ul (0.83-4.51); Lymphocyte % 1.8 % (19-41); Mean Corp Hgb Conc 31.7 g/dL (32-36); Mean Corpuscular Hgb 28.5 pg (27.0-32.0); Mean Platelet Vol. 10.7 fl (6.2-12.0); Monocyte# 0.43 X10^3/uL; Monocyte% 4.5 % (0-10); NRBC Flagged by Analyzer 0 % (0-5); Neutrophil # 8.98 X10^3/uL (2.7-7.7); Neutrophil % 92.9 % (47-70); POSITIVE DIFFERENTIAL YES; Platelet Count 197 K/mm3 (150-450); RBC Distribution Width CV 12.5 % (11.6-14.6); White Blood Count 9.7 K/mm3 (4.4-11.0)
[2021-03-21 15:19] LABS: Differential Indicated SCAN CRITERIA MET
--- NOTE | 2021-03-21 15:40 | RAD_ITS ---
STUDY: X-RAY CHEST REASON FOR EXAM: Female, 76 years old. Weakness TECHNIQUE: Single AP portable view of the chest. COMPARISON: Comparison is made with prior study dated 03/17/2020. FINDINGS: EKG electrodes are seen. There is a 1.7 cm x 2.6 cm nodular density along the medial aspect of the right upper lobe adjacent to the right side of the trachea. There is no demonstrated pleural abnormality. Normal size heart. Normal mediastinum and cori. Normal visualized pulmonary arteries. There is atherosclerotic calcification of the aortic arch with tortuosity. There are diffuse degenerative changes of the visualized thoracic spine. Normal visualized ribs, clavicles, and shoulders. There is no demonstrated abnormality of the visualized soft tissue structures of the upper abdomen. RAD/Chest 1 View (Portable) IMPRESSION: 1.7 cm x 2.6 cm nodular density along the medial aspect of the right upper lobe adjacent to the right side of the trachea. Correlation with CT scan is recommended. Electronically Signed: Edward Stoll MD at 15:54 EDT , Service support ,
[2021-03-21 15:45] LABS: Mucous, Urine 0 SEEN /hpf (<or=2+)
[2021-03-21 15:56] LABS: Platelet Estimate ADEQUATE (ADEQ); Red Cell Morphology NORM C+C NORMAL (NORM C&C)
[2021-03-21 15:57] LABS: ALB/GLOB Ratio 0.7 RATIO (0.9-2.4); AST(SGOT) 15 U/L (15-37); Alanine Aminotransfer ALT/SGPT 17 U/L (13-56); Albumin, Serum 2.6 g/dL (3.2-5.0); Alkaline Phosphatase 125 U/L (45-117); Anion Gap 10 (5-15); BUN 30 mg/dL (7-18); BUN/Creat Ratio 15.8 RATIO (10-20); Chloride 95 mmol/L (98-107); EST Glomerular Filtration Rate 27 mL/min (>60); Est Glom Filt Rate - Afr Amer 33 mL/min (>60); Estimated Creatinine Clearance 27.48 ml/min; Globulin 3.7 g/dL (2.2-4.2); Glucose 639 mg/dL (74-106); Potassium 4.1 mmol/L (3.5-5.1); Protein, Total 6.3 g/dL (6.4-8.2); Sodium Level 129 mmol/L (136-145); Troponin-I HS 492 pg/mL (3.0-54.0)
[2021-03-21 16:17] LABS: Color, Urine Yellow (Yellow); Glucose, Dipstick 1000 mg/dl (Normal); Ketone-Dipstick 15 mg/dl (Negative); Leukocyte Esterase-Dipstick 25 /ul (Negative); Nitrite-Dipstick Negative (Negative); Occult Blood-Urine 150 /ul (Negative); Protein-Dipstick 100 mg/dl (Negative); Urine Bilirubin Dipstick Negative (Negative); Urine Clarity Clear (Clear); Urine Urobilinogen Normal (Normal)
[2021-03-21 16:28] LABS: Bacteria RARE /hpf (None Seen); Red Blood Cells-Urine 0-5 SEEN /hpf (0-5); Squamous Epithelial Cells - UA 0-5 SEEN /hpf (5-10); White Blood Cells 5-10 SEEN /hpf (0-5)
[2021-03-21] MEDS: Aspirin 81 MG TAB.CHEW 324 MG PO (16:29)
--- NOTE | 2021-03-21 16:40 | HP.PCM.HOS_ITS ---
HPI - General General Date of Admission: 03/21/21 Date of Service: 03/21/21 Chief Complaint: Generalized weakness, elevated blood sugars HPI Narrative CASANDRA JONES, is a 76 F who presents with above. She has history of type II DM, follows with Dr. Collier, history of bariatric surgery, osteoporosis. Patient stated that she has not been feeling well for about 5 days. She also has not been taking her insulin. She had been taking care of her and was neglecting herself. Denied any fever or cough. She has not been vaccinated. She admits to nasal congestion. Denied any loss of smell or taste. Blood sugars have been uncontrolled at home. Patient stated that she was recently treated for UTI by her primary care doctor. He cannot remember what antibiotic she is on. Her med list shows Bactrim In the ED, her vitals were stable except that she was on 4 L of oxygen. Chest x-ray showed a 1.7 cm x 2.6 cm nodular density along the medial aspect of the right upper lobe. Her admitting blood was unremarkable except for sodium of 128, potassium 4.1, bicarbonate 20, anion gap was 12, BUN 29, creatinine 1.90. Baseline creatinine is 1.1. Troponins were elevated at 494. EKG shows normal sinus rhythm, first degree AV block UA was suggestive of glucosuria [facility] Medical History Age related osteoporosis Anemia Anxiety Arthritis Cardiac murmur Carpal tunnel syndrome Depression Heart disease Hip fracture requiring operative repair Hypertension Kidney disease Myocardial infarct Osteoarthritis Type 2 diabetes mellitus without complications Home Medications ferrous sulfate 325 mg PO DAILY 08/14/17 [History Last Taken 03/20/21] pramipexole 2 mg PO QHS 08/14/17 [History Last Taken 03/20/21] alendronate 70 mg tablet 70 mg PO MO 08/10/20 [History Last Taken 2 Weeks Ago ~03/07/21] gabapentin 100 mg capsule 100 mg PO Q6H cap 08/10/20 [History Last Taken 03/21/21] furosemide 40 mg tablet 40 mg PO DAILY tablet 11/09/20 [History Last Taken 03/21/21] oxycodone 10 mg tablet 10 ea PO Q6H PRN PRN 11/09/20 [History Last Taken 03/21/21 11:00] propranolol 40 mg tablet 40 mg PO BID tablet 11/09/20 [History Last Taken 03/21/21] insulin lispro protamin-lispro [Humalog Mix 50-50 KwikPen] 8 unit SUBCUT QHS 03/21/21 [History Last Taken 03/20/21] insulin lispro protamin-lispro [Humalog Mix 50-50 KwikPen] 10 unit SC BREAKFAST 03/21/21 [History Last Taken 03/21/21] sulfamethoxazole-trimethoprim 1 tab PO BID 03/21/21 [History Last Taken 03/21/21 11:00] Allergy/AdvReac Type Severity Reaction Status Date / Time No Known Allergies Allergy Verified 03/21/21 13:54 Family History (Updated 03/21/21 @ 18:[address] Stephanie Coughlin MD) Mother Diabetes Father Diabetes Surgical History History of back surgery History of gastric bypass Social History (Updated 03/21/21 @ 18:[address] Stephanie Coughlin MD) household members: spouse Smoking Status: Unknown if ever smoked alcohol intake: never substance use type: does not use ROS ROS Narrative Constitutional: Reports: Malaise, Weakness, Fatigue. Denies: Anorexia, Chills, Fever, Night Sweats, Weight Change Eyes: denies: Blurred vision, Cataracts, Conjunctivae Inflammation, Pain, Redness, Vision Change HEENT: Admits to rhinorrhea denies: Difficulty Hearing, Difficulty Swallowing, Head Aches, Hearing Changes, Cardiovascular: Denies: Chest Pain, Orthopnea, Palpitations Respiratory: Denies: Cough, Shortness of breath at rest, Sputum production Gastrointestinal: Denies: Abdominal Pain, Nausea, Vomiting Genitourinary: Denies: Dysuria Musculoskeletal: Denies: Joint Pain, Joint stiffness, Joint swelling, Joint Tenderness Skin: Denies: Rash, Wounds Neurological: Denies: Numbness, Tingling, Focal weakness Vital Signs Vital Signs Vital Signs: 03/21/21 13:48 03/21/21 15:07 03/21/21 15:40 Temperature 98 F Temperature Source Temporal Pulse Rate 77 81 Respiratory Rate 18 16 Respiratory Effort Normal Non-Labored Respiratory Pattern Normal Blood Pressure 138/65 H 135/84 H Blood Pressure Mean 89 101 Pulse Ox 95 96 Oxygen Delivery Method Room Air Room Air 03/21/21 16:25 Temperature Temperature Source Pulse Rate 70 Respiratory Rate 20 H Respiratory Effort Respiratory Pattern Blood Pressure 124/58 H Blood Pressure Mean 80 Pulse Ox 96 Oxygen Delivery Method Room Air Weight Weight: 68.039 kg Body Mass Index (BMI) 30.2 Physical Exam Narrative Physical exam: General: Alert, Oriented x3, Cooperative, No apparent distress, Well developed, slightly lethargic HEENT: Atraumatic Oral: Very dry oral mucosa Neck: Supple Lungs: Clear to auscultation Cardiovascular: HS I+II, regular, no murmurs Abdomen: Bowel Sounds Present, Soft, Non Tender, no palpable organ Extremities: Trace bilateral edema, slight erythema of the lower legs, no open areas Results Lab / Micro Data Result Diagrams: 03/21/21 15:10 03/21/21 15:10 Labs: Laboratory Results - last 24 hr 03/21/21 15:10: WBC 9.7, RBC 4.10 L, Hgb 11.7 L, Hct 36.9 L, MCV 90.0, MCH 28.5, MCHC 31.7 L, RDW Std Deviation 41.0, RDW Coeff of Fady 12.5, Plt Count 197, MPV 10.7, Immature Gran % (Auto) 0.600, Neut % (Auto) 92.9 H, Lymph % (Auto) 1.8 L, [place] % (Auto) 4.5, Eos % (Auto) 0.0, Baso % (Auto) 0.2, Absolute Neuts (auto) 9.0 H, Absolute Lymphs (auto) 0.17 L, Nucleated RBC % 0, Differential Comment , Platelet Estimate ADEQUATE, RBC Morphology NORM C+C 03/21/21 15:10: Sodium 129 L, Potassium 4.1, Chloride 95 L, Carbon Dioxide 24.0, Anion Gap 10, BUN 30 H, Creatinine 1.90 H, Estim Creat Clear Calc 27.48, Est GFR (MDRD) Af Amer 33 L, Est GFR (MDRD) Non-Af 27 L, BUN/Creatinine Ratio 15.8, Glucose 639 H*, Calcium 8.0 L, Total Bilirubin 0.40, AST 15, ALT 17, Alkaline Phosphatase 125 H, Troponin I High Sens 492 H*, Total Protein 6.3 L, Albumin 2.6 L, Globulin 3.7, Albumin/Globulin Ratio 0.7 L 03/21/21 15:10: Acetone Level NEGATIVE 03/21/21 15:35: Urine Color Yellow, Urine Clarity Clear, Urine pH 6.0, Ur Specific [place] 1.010, Urine Protein 100 H, Urine Glucose (UA) 1000 H, Urine Ketones 15 H, Urine Occult Blood 150 H, Urine Nitrite Negative, Urine Bilirubin Negative, Urine Urobilinogen Normal, Ur Leukocyte Esterase 25 H, Urine RBC 0-5 SEEN, Urine WBC 5-10 SEEN, Ur Squamous Epith Cells 0-5 SEEN, Urine Bacteria RARE, Urine Mucus 0 SEEN Radiology Impression Chest X-Ray 03/21/21 15:40 IMPRESSION: 1.7 cm x 2.6 cm nodular density along the medial aspect of the right upper lobe adjacent to the right side of the trachea. Correlation with CT scan is recommended. Electronically Signed: Edward Stoll MD at 15:54 EDT , Service support , Assessment & Plan Assessment/Plan (1) Hyperosmolar hyperglycemic state (HHS): (2) Non-ST elevated myocardial infarction (non-STEMI): (3) Hypomagnesemia: PLAN: 1. Acute HHS in a known type II DM patient HbA1c is 11.7 Patient's admitting blood glucose was 639, normal gap Started on insulin drip in the ED Will continue on insulin drip, continue on HHS protocol 2. Dehydration in a patient with CKD stage IIIa Admitting creatinine is 1.9, baseline creatinine is 1.1 Continue on IV fluid, repeat lab in a.m. 3. Elevated troponin, likely secondary to type II non-STEMI, from #1 [address]KG shows no acute ST changes, will trend troponins 4. Hypomagnesemia, replaced 5. Rest of her chronic medical conditions including osteoporosis, iron deficiency anemia- remains stable Home med list reviewed, continued on iron, gabapentin I discussed and explained in details the various types of CODE STATUS-full code, DNR CCA, DNR CC. Patient chose to be full code. She stated she had a living will and power of county attorney is her . She felt that she should have everything done to keep her alive for now. Time spent discussing CODE STATUS 18 minutes Charges/Coding Visit Charges Inpatient E&M: 64047 Init Hosp L3 Procedures Hospitalists Procedures: 45615 Advncd Care Plan 30 Min
[2021-03-21 16:50] LABS: Bedside Glucose > 500 mg/dL (70-110)
[2021-03-21 17:38] LABS: Magnesium 1.8 mg/dL (1.6-2.6); Troponin-I HS 540 pg/mL (3.0-54.0)
[2021-03-21] MEDS: 0.9% Normal Saline 1,000 ML 999 ML IV (17:46)
[2021-03-21 17:51] LABS: Bedside Glucose > 500 mg/dL (70-110)
[2021-03-21 18:09] LABS: Anion Gap 12 (5-15); BUN 29 mg/dL (7-18); BUN/Creat Ratio 16.6 RATIO (10-20); Calcium,Total 7.7 mg/dL (8.5-10.1); Chloride 96 mmol/L (98-107); Creatinine, Serum 1.75 mg/dL (0.55-1.02); EST Glomerular Filtration Rate 30 mL/min (>60); Est Glom Filt Rate - Afr Amer 36 mL/min (>60); Estimated Creatinine Clearance 34.16 ml/min; Glucose 603 mg/dL (74-106); Potassium 4.1 mmol/L (3.5-5.1); Sodium Level 128 mmol/L (136-145)
[2021-03-21 18:19] LABS: Hemoglobin A1c 11.7 % (3.8-5.6)
[2021-03-21 18:26] LABS: Base Excess -5 mmol/L (-2 to +2); Bicarbonate 20.5 mmol/L (22-26); Blood Gas Specimen Type ART; O2 Delivery Device Cannula; PO2 69 mmHG (75-100); SITE R Brach; SO2 93 % (95-99); Total Carbon Dioxide 22 mmol/L; pCO2 35.3 mmHg (35-45); pH 7.37 (7.35-7.45)
[2021-03-21] MEDS: 0.9% Normal Saline 1,000 ML 500 ML IV (18:50)
[2021-03-21 18:51] LABS: Bedside Glucose > 500 mg/dL (70-110)
[2021-03-21] MEDS: Gabapentin 100 MG Capsule PO ×2 (18:51→23:42)
--- NOTE | 2021-03-21 19:19 | PCS.PANDOC ---
PANDEMIC DOCUMENTATION INITIATED: Date: 03/21/2021 Time: 1271
[2021-03-21 19:56] LABS: Bedside Glucose 438 mg/dL (70-110)
[2021-03-21] MEDS: 0.9% Normal Saline 1,000 ML 250 ML IV (20:53)
[2021-03-21 20:56] LABS: Bedside Glucose 359 mg/dL (70-110)
[2021-03-21] MEDS: Pramipexole Di-HCl 1 MG Tablet 2 MG PO (21:03)
[2021-03-21 21:45] LABS: Troponin-I HS 464 pg/mL (3.0-54.0)
[2021-03-21 21:47] LABS: Anion Gap 9 (5-15); BUN 31 mg/dL (7-18); BUN/Creat Ratio 17.1 RATIO (10-20); Calcium,Total 7.2 mg/dL (8.5-10.1); Chloride 102 mmol/L (98-107); Creatinine, Serum 1.81 mg/dL (0.55-1.02); EST Glomerular Filtration Rate 29 mL/min (>60); Est Glom Filt Rate - Afr Amer 35 mL/min (>60); Estimated Creatinine Clearance 33.03 ml/min; Glucose 371 mg/dL (74-106); Potassium 3.4 mmol/L (3.5-5.1); Sodium Level 136 mmol/L (136-145)
[2021-03-21 21:55] LABS: Bedside Glucose 344 mg/dL (70-110)
[2021-03-21 23:05] LABS: Bedside Glucose 323 mg/dL (70-110)
[2021-03-21] MEDS: Potassium Chloride 10mEq/100mL 10 MEQ/100 ML IV.SOLN. 100 MEQ IV BOLUS (23:42)
[2021-03-22] VITALS (24 sets, daily range): BP systolic 88–162; BP diastolic 42–94; PULSE 52–100; RESP 13–22; TEMP 36.2–39.2; O2SAT 93–99
[2021-03-22] MEDS: Potassium Chloride 10mEq/100mL 10 MEQ/100 ML IV.SOLN. 100 MEQ IV BOLUS ×3 (00:35→02:39)
[2021-03-22] MEDS: 0.9% Normal Saline 1,000 ML 250 ML IV (00:43)
[2021-03-22 00:56] LABS: Bedside Glucose 218 mg/dL (70-110)
[2021-03-22] MEDS: Dext 5%-0.45% NS 1,000 ML 150 ML IV ×2 (00:56→08:18)
[2021-03-22 01:46] LABS: Bedside Glucose 231 mg/dL (70-110)
[2021-03-22 02:56] LABS: Bedside Glucose 212 mg/dL (70-110)
[2021-03-22] MEDS: Acetaminophen 325 MG Tablet 650 MG PO (03:50)
[2021-03-22 03:51] LABS: Bedside Glucose 244 mg/dL (70-110)
[2021-03-22 04:56] LABS: Bedside Glucose 221 mg/dL (70-110)
[2021-03-22 04:59] LABS: Absolute Lymphocyte Count 0.24 X10^3/uL (0.83-4.51); Absolute Neutrophil Count 6.8 X10^3/uL (2.0-7.7); Basophil# 0.01 X10^3/uL; Basophil% 0.1 % (0-1); Hematocrit 31.2 % (37-47); Hemoglobin 10.2 g/dL (12.0-15.0); Lymphocyte # 0.24 X10^3/ul (0.83-4.51); Lymphocyte % 3.3 % (19-41); Mean Corp Hgb Conc 32.7 g/dL (32-36); Mean Corpuscular Hgb 29.1 pg (27.0-32.0); Mean Corpuscular Volume 89.1 fL (81-99); Mean Platelet Vol. 10.3 fl (6.2-12.0); Monocyte# 0.22 X10^3/uL; NRBC Flagged by Analyzer 0 % (0-5); Neutrophil # 6.75 X10^3/uL (2.7-7.7); POSITIVE DIFFERENTIAL YES; Platelet Count 154 K/mm3 (150-450); RBC Distribution Width CV 12.6 % (11.6-14.6); RBC Distribution Width SD 41.1 fl (35.1-43.9); White Blood Count 7.3 K/mm3 (4.4-11.0)
[2021-03-22 05:11] LABS: Differential Indicated SCAN CRITERIA MET
[2021-03-22 05:18] LABS: ALB/GLOB Ratio 0.7 RATIO (0.9-2.4); AST(SGOT) 19 U/L (15-37); Alanine Aminotransfer ALT/SGPT 15 U/L (13-56); Albumin, Serum 2.1 g/dL (3.2-5.0); Alkaline Phosphatase 96 U/L (45-117); Anion Gap 7 (5-15); BUN 30 mg/dL (7-18); BUN/Creat Ratio 18.1 RATIO (10-20); Calcium,Total 7.2 mg/dL (8.5-10.1); Chloride 104 mmol/L (98-107); Creatinine, Serum 1.66 mg/dL (0.55-1.02); EST Glomerular Filtration Rate 32 mL/min (>60); Est Glom Filt Rate - Afr Amer 39 mL/min (>60); Estimated Creatinine Clearance 36.01 ml/min; Glucose 231 mg/dL (74-106); Potassium 4.2 mmol/L (3.5-5.1); Protein, Total 5.1 g/dL (6.4-8.2); Sodium Level 133 mmol/L (136-145)
[2021-03-22 05:44] LABS: Differential Comment SCANNED
[2021-03-22] MEDS: Ceftriaxone 1 GM/50 ML BAG IV (08:09)
--- NOTE | 2021-03-22 08:09 | PCM.PN.HOSP ---
Subjective Subjective Patient was seen and examined. She feels much improved. Overnight she had a temperature spike of 102.5F. She was started on IV ceftriaxone. Blood cultures are pending Objective Data Objective Data Vital Signs: Vital Signs Temp Pulse Resp BP Pulse Ox 98.5 F 62 18 99/47 L 97 03/22/21 05:00 03/22/21 06:59 03/22/21 06:00 03/22/21 06:00 03/22/21 06:00 Oxygen Flow Rate (L/min) 2 Oxygen Delivery Method Nasal Cannula Weight: 81.9 kg Body Mass Index (BMI) 34.7 Intake & Output: Intake and Output for Last 24 Hours 03/20/21 03/21/21 03/22/21 23:59 23:59 23:59 Intake Total 2632.80 / 2632.80 1419.57 / 1419.57 Output Total 200 / 200 0 / 0 Balance 2432.80 / 2432.80 1419.57 / 1419.57 Lab / Micro Data Result Diagrams: 03/22/21 04:50 03/22/21 09:30 Labs: Laboratory Results - last 24 hr 03/21/21 15:10: WBC 9.7, RBC 4.10 L, Hgb 11.7 L, Hct 36.9 L, MCV 90.0, MCH 28.5, MCHC 31.7 L, RDW Std Deviation 41.0, RDW Coeff of Fady 12.5, Plt Count 197, MPV 10.7, Immature Gran % (Auto) 0.600, Neut % (Auto) 92.9 H, Lymph % (Auto) 1.8 L, [place] % (Auto) 4.5, Eos % (Auto) 0.0, Baso % (Auto) 0.2, Absolute Neuts (auto) 9.0 H, Absolute Lymphs (auto) 0.17 L, Nucleated RBC % 0, Differential Comment , Platelet Estimate ADEQUATE, RBC Morphology NORM C+C 03/21/21 15:10: Sodium 129 L, Potassium 4.1, Chloride 95 L, Carbon Dioxide 24.0, Anion Gap 10, BUN 30 H, Creatinine 1.90 H, Estim Creat Clear Calc 27.48, Est GFR (MDRD) Af Amer 33 L, Est GFR (MDRD) Non-Af 27 L, BUN/Creatinine Ratio 15.8, Glucose 639 H*, Calcium 8.0 L, Total Bilirubin 0.40, AST 15, ALT 17, Alkaline Phosphatase 125 H, Troponin I High Sens 492 H*, Total Protein 6.3 L, Albumin 2.6 L, Globulin 3.7, Albumin/Globulin Ratio 0.7 L 03/21/21 15:10: Acetone Level NEGATIVE 03/21/21 15:10: Hemoglobin A1c 11.7 H 03/21/21 15:35: Urine Color Yellow, Urine Clarity Clear, Urine pH 6.0, Ur Specific [place] 1.010, Urine Protein 100 H, Urine Glucose (UA) 1000 H, Urine Ketones 15 H, Urine Occult Blood 150 H, Urine Nitrite Negative, Urine Bilirubin Negative, Urine Urobilinogen Normal, Ur Leukocyte Esterase 25 H, Urine RBC 0-5 SEEN, Urine WBC 5-10 SEEN, Ur Squamous Epith Cells 0-5 SEEN, Urine Bacteria RARE, Urine Mucus 0 SEEN 03/21/21 16:41: POC Glucose > 500 H* 03/21/21 17:10: Magnesium 1.8, Troponin I High Sens 540 H* 03/21/21 17:10: Sodium 128 L, Potassium 4.1, Chloride 96 L, Carbon Dioxide 20.0 L, Anion Gap 12, BUN 29 H, Creatinine 1.75 H, Estim Creat Clear Calc 34.16, Est GFR (MDRD) Af Amer 36 L, Est GFR (MDRD) Non-Af 30 L, BUN/Creatinine Ratio 16.6, Glucose 603 H*, Calcium 7.7 L 03/21/21 17:38: POC Glucose > 500 H* 03/21/21 18:44: POC Glucose > 500 H* 03/21/21 19:48: POC Glucose 438 H 03/21/21 20:50: POC Glucose 359 H 03/21/21 21:00: Sodium 136, Potassium 3.4 L, Chloride 102, Carbon Dioxide 25.0, Anion Gap 9, BUN 31 H, Creatinine 1.81 H, Estim Creat Clear Calc 33.03, Est GFR (MDRD) Af Amer 35 L, Est GFR (MDRD) Non-Af 29 L, BUN/Creatinine Ratio 17.1, Glucose 371 H, Calcium 7.2 L 03/21/21 21:00: Troponin I High Sens 464 H* 03/21/21 21:49: POC Glucose 344 H 03/21/21 22:48: POC Glucose 323 H 03/22/21 00:45: POC Glucose 218 H 03/22/21 01:40: POC Glucose 231 H 03/22/21 02:48: POC Glucose 212 H 03/22/21 03:44: POC Glucose 244 H 03/22/21 04:48: POC Glucose 221 H 03/22/21 04:50: Sodium 133 L, Potassium 4.2, Chloride 104, Carbon Dioxide 22.0, Anion Gap 7, BUN 30 H, Creatinine 1.66 H, Estim Creat Clear Calc 36.01, Est GFR (MDRD) Af Amer 39 L, Est GFR (MDRD) Non-Af 32 L, BUN/Creatinine Ratio 18.1, Glucose 231 H, Calcium 7.2 L, Total Bilirubin 0.30, AST 19, ALT 15, Alkaline Phosphatase 96, Total Protein 5.1 L, Albumin 2.1 L, Globulin 3.0, Albumin/Globulin Ratio 0.7 L 03/22/21 04:50: WBC 7.3, RBC 3.50 L, Hgb 10.2 L, Hct 31.2 L, MCV 89.1, MCH 29.1, MCHC 32.7, RDW Std Deviation 41.1, RDW Coeff of Fady 12.6, Plt Count 154, MPV 10.3, Immature Gran % (Auto) 0.600, Neut % (Auto) 93.0 H, Lymph % (Auto) 3.3 L, [place] % (Auto) 3.0, Eos % (Auto) 0.0, Baso % (Auto) 0.1, Absolute Neuts (auto) 6.8, Absolute Lymphs (auto) 0.24 L, Nucleated RBC % 0, Differential Comment SCANNED Micro: Microbiology 03/21/21 18:45 Mucosa - Nose SARS-CoV-2 Antigen (Rapid) - Final ABG Data ABG results: ABG 03/21/21 18:20 Specimen Type ART Sample Site R Brach pH 7.37 Bicarbonate Actual 20.5 L Total CO2 22 Base Excess -5 L O2 Saturation 93 L ABG pCO2 35.3 ABG pO2 69 L O2 Delivery Device Cannula Liter Flow 2.0 Radiography Diagnostic Testing: Radiology Impression Chest X-Ray 03/21/21 15:40 IMPRESSION: 1.7 cm x 2.6 cm nodular density along the medial aspect of the right upper lobe adjacent to the right side of the trachea. Correlation with CT scan is recommended. Electronically Signed: Edward Stoll MD at 15:54 EDT , Service support , Physical Exam Narrative Physical exam: General: Alert, Oriented x3, Cooperative, No apparent distress, Well developed, slightly lethargic HEENT: Atraumatic Oral: Very dry oral mucosa Neck: Supple Lungs: Clear to auscultation Cardiovascular: HS I+II, regular, no murmurs Abdomen: Bowel Sounds Present, Soft, Non Tender, no palpable organ Extremities: Trace bilateral edema, erythema of bilateral lower legs, with differential warmth Assessment & Plan Assessment/Plan (1) Hyperosmolar hyperglycemic state (HHS): (2) Non-ST elevated myocardial infarction (non-STEMI): (3) Hypomagnesemia: PLAN: 1. Acute HHS in a known type II DM patient, HbA1c 11.7 Likely secondary to acute cellulitis Patient's admitting blood glucose was 639, normal gap Off insulin drip, will transition to home insulin regimen, continue to monitor blood sugars 2. Acute bilateral leg cellulitis, no ulcers seen on the legs Blood cultures are pending, continue IV ceftriaxone for now 3. Dehydration in a patient with CKD stage IIIa, improving Admitting creatinine is 1.9, baseline creatinine is 1.1 Creatinine today is 1.68, continue on IV fluids 4. Elevated troponin, likely secondary to type II non-STEMI, from #1 [address]KG shows no acute ST changes, last 2D echo in 2018 showed an EF of 65%, unremarkable 5. Hypomagnesemia, replaced 6. Relative hypotension, map fluctuating between 63 and 67, We will hold propranolol for systolic less than 110 7. Rest of her chronic medical conditions including osteoporosis, iron deficiency anemia- remains stable Home med list reviewed, continued on iron, gabapentin Charges/Coding Visit Charges Inpatient E&M: 50380 Subs Hosp L2
[2021-03-22 08:13] LABS: Magnesium 1.9 mg/dL (1.6-2.6)
[2021-03-22] MEDS: 0.9% Normal Saline 1,000 ML 125 ML IV ×2 (09:31→17:02)
[2021-03-22] MEDS: Ferrous Sulfate 325 MG Tablet PO (09:32)
[2021-03-22] MEDS: Insulin Lispro 100 UNIT/ML INSULN.PEN SC ×4 (09:40→21:30)
[2021-03-22 09:56] LABS: Bedside Glucose 246 mg/dL (70-110)
[2021-03-22 10:03] LABS: Anion Gap 4 (5-15); BUN 30 mg/dL (7-18); BUN/Creat Ratio 17.9 RATIO (10-20); Calcium,Total 7.4 mg/dL (8.5-10.1); Chloride 104 mmol/L (98-107); Creatinine, Serum 1.68 mg/dL (0.55-1.02); EST Glomerular Filtration Rate 32 mL/min (>60); Est Glom Filt Rate - Afr Amer 38 mL/min (>60); Estimated Creatinine Clearance 37.41 ml/min; Glucose 261 mg/dL (74-106); Potassium 4.5 mmol/L (3.5-5.1); Sodium Level 132 mmol/L (136-145)
--- NOTE | 2021-03-22 10:06 | CON.PCM.CC_ITS ---
Assessment & Plan Assessment/Plan (1) Hyperosmolar hyperglycemic state (HHS): (2) Rheumatoid arthritis: (3) Venous stasis ulcer of right lower leg with edema of right lower leg: (4) Stage 3 chronic kidney disease due to type 2 diabetes mellitus: (5) Polyneuropathy due to type 2 diabetes mellitus: PLAN: RECOMMENDATIONS: 1. Transition to subcu insulin 2. Initiate empiric antibiotics 3. Consider wound care evaluation 4. Panculture IMPRESSIONS: 1. Hyperosmolar hyperglycemic state with poor baseline diabetic compliance Patient with no anion gap on presentation. Patient does have a significantly elevated hemoglobin A1c of 11.7 despite insulin therapy. Patient will be placed on basal insulin with sliding scale. Patient does follow with endocrinology already. 2. Non-ST elevation GA Unclear if this represents a true ischemic event versus supply demand mismatch. Defer to hospitalist on involvement of cardiology. Continue telemetry. 3. Acute on chronic kidney disease stage IIIa secondary to osmotic diuresis Clinical suspicion for prerenal etiology secondary to osmotic diuresis associated with hyperglycemia. Continue with fluid resuscitation and monitor. No indication for renal replacement therapy. 4. Fever Unclear etiology at this time. Patient was treated for UTI prior to presentation. Lower extremities do have ulcers, but rubor improves with elevation indicating more venous stasis than cellulitis. Patient will be given empiric ceftriaxone. Pancultures have been ordered. 5. Advanced age/venous stasis/rheumatoid arthritis/osteoporosis/polyneuropathy/debility Complicates care, management, recovery and prognosis. Patient does have multiple stasis ulcers of her lower extremities, but none appear to be infected on my evaluation. Okay to continue with baseline medications except for insulin regimen. HPI Consult Data Date of Consult: 03/22/21 HPI Narrative HPI Narrative: CASANDRA JONES is a 76 F, with past medical history listed below, who presents to [facility] 03[facility]21[facility]21 secondary to elevated blood sugars that are gotten worse over the last 1 to 2 weeks. Patient had reported generalized weakness and was on Bactrim for a urinary tract infection. Patient had had urinary frequency, but denied hematuria or dysuria. Patient had had some subjective chills and decreased appetite. Patient report edly had had some episodes of passing out. Patient states that she had not received Covid vaccination. In the ER, patient was normotensive and afebrile with good saturations on room air. Laboratory data showed no leukocytosis, but anemia at 11.7. Chemistries showed a sodium of 129, glucose of 639, BUN of 30 and creatinine of 1.9. High- sensitivity troponin was elevated at 492 and LFTs were otherwise within normal limits. UA did show 5-10 WBCs with a slightly elevated leukocyte esterase and negative nitrite. Chest x-ray showed a possible nodular density of the right upper lobe. No anion gap was noted, so the patient was initiated on IV fluids and an insulin drip and admitted to the intensive care unit. While in the intensive care unit, patient did have a significant fever. This w as not associated with hemodynamic instability. Patient has not reporting any respiratory symptoms, but does continue to have weakness. Patient is a relatively poor historian. Patient does have a previous cardiac history. Patient is a relatively poor historian, but otherwise review of systems negative from a constitutional, HEENT, respiratory, cardiovascular, GI, genitourinary, musculoskeletal, skin, neurologic, psychiatric and hematologic system unless stated above. [facility] Medical History Age related osteoporosis Anemia Anxiety Arthritis Cardiac murmur Carpal tunnel syndrome Depression Heart disease Hip fracture requiring operative repair Hypertension Kidney disease Myocardial infarct Osteoarthritis Type 2 diabetes mellitus without complications Home Medications ferrous sulfate 325 mg PO DAILY 08/14/17 [History Last Taken 03/20/21] pramipexole 2 mg PO QHS 08/14/17 [History Last Taken 03/20/21] alendronate 70 mg tablet 70 mg PO MO 08/10/20 [History Last Taken 2 Weeks Ago ~03/07/21] gabapentin 100 mg capsule 100 mg PO Q6H cap 08/10/20 [History Last Taken 03/21/21] furosemide 40 mg tablet 40 mg PO DAILY tablet 11/09/20 [History Last Taken 03/21/21] oxycodone 10 mg tablet 10 ea PO Q6H PRN PRN 11/09/20 [History Last Taken 0 03/21/21 11:00] propranolol 40 mg tablet 40 mg PO BID tablet 11/09/20 [History Last Taken 03/21/21] insulin lispro protamin-lispro [Humalog Mix 50-50 KwikPen] 8 unit SUBCUT QHS 03/21/21 [History Last Taken 03/20/21] insulin lispro protamin-lispro [Humalog Mix 50-50 KwikPen] 10 unit SC BREAKFAST 03/21/21 [History Last Taken 03/21/21] sulfamethoxazole-trimethoprim 1 tab PO BID 03/21/21 [History Last Taken 03/21/21 11:00] Allergy/AdvReac Type Severity Reaction Status Date / Time No Known Allergies Allergy Verified 03/21/21 13:54 Family History (Updated 03/21/21 @ 18:[address] Stephanie Coughlin MD) Mother Diabetes Father Diabetes Surgical History History of back surgery History of gastric bypass Social History (Updated 03/21/21 @ 18:[address] Stephanie Coughlin MD) household members: spouse Smoking Status: Unknown if ever smoked alcohol intake: never substance use type: does not use ROS ROS Narrative See HPI Physical Exam Const no apparent distress General Appearance: cooperative and lethargic Nutritional Appearance: obese HEENT normocephalic, head/scalp atraumatic and moist oral mucous membranes Eyes PERRL and EOMs intact bilaterally Eyes Narrative: Slight scleral injection Neck full ROM and no lymphadenopathy Chest inspection of chest normal Resp normal respiratory effort and no use of accessory muscles Effort and Inspection: able to speak in complete sentences Auscultation: clear to auscultation bilaterally; Negative for rales, rhonchi or wheezes Percussion: Negative for dullness Cardio regular rate, regular rhythm, S1 normal heart sound, S2 normal heart sound, no murmurs, no rub and no gallops GI normal to inspection, nondistended, normoactive bowel sounds no CVA tenderness Extremity Extremity Narrative: Venous stasis changes of bilateral lower extremities. Does improve with elevation. Multiple superficial ulcers noted of lower extremities. None with exudate or fluctuance. General Extremity: edema; Negative for clubbing or cyanosis Skin no rashes or lesions noted Neuro oriented x3, CN's II-XII intact bilaterally, moves all extremities and no focal motor deficits Psych cooperative and affect normal Lab / Micro Data Result Diagrams: 03/22/21 04:50 03/22/21 09:30 Labs: Laboratory Results - last 24 hr 03/21/21 15:10: WBC 9.7, RBC 4.10 L, Hgb 11.7 L, Hct 36.9 L, MCV 90.0, MCH 28.5, MCHC 31.7 L, RDW Std Deviation 41.0, RDW Coeff of Fady 12.5, Plt Count 197, MPV 10.7, Immature Gran % (Auto) 0.600, Neut % (Auto) 92.9 H, Lymph % (Auto) 1.8 L, [place] % (Auto) 4.5, Eos % (Auto) 0.0, Baso % (Auto) 0.2, Absolute Neuts (auto) 9.0 H, Absolute Lymphs (auto) 0.17 L, Nucleated RBC % 0, Differential Comment , Platelet Estimate ADEQUATE, RBC Morphology NORM C+C 03/21/21 15:10: Sodium 129 L, Potassium 4.1, Chloride 95 L, Carbon Dioxide 24.0, Anion Gap 10, BUN 30 H, Creatinine 1.90 H, Estim Creat Clear Calc 27.48, Est GFR (MDRD) Af Amer 33 L, Est GFR (MDRD) Non-Af 27 L, BUN/Creatinine Ratio 15.8, Glucose 639 H*, Calcium 8.0 L, Total Bilirubin 0.40, AST 15, ALT 17, Alkaline Phosphatase 125 H, Troponin I High Sens 492 H*, Total Protein 6.3 L, Albumin 2.6 L, Globulin 3.7, Albumin/Globulin Ratio 0.7 L 03/21/21 15:10: Acetone Level NEGATIVE 03/21/21 15:10: Hemoglobin A1c 11.7 H 03/21/21 15:35: Urine Color Yellow, Urine Clarity Clear, Urine pH 6.0, Ur Specific [place] 1.010, Urine Protein 100 H, Urine Glucose (UA) 1000 H, Urine Ketones 15 H, Urine Occult Blood 150 H, Urine Nitrite Negative, Urine Bilirubin Negative, Urine Urobilinogen Normal, Ur Leukocyte Esterase 25 H, Urine RBC 0-5 SEEN, Urine WBC 5-10 SEEN, Ur Squamous Epith Cells 0-5 SEEN, Urine Bacteria RARE, Urine Mucus 0 SEEN 03/21/21 16:41: POC Glucose > 500 H* 03/21/21 17:10: Magnesium 1.8, Troponin I High Sens 540 H* 03/21/21 17:10: Sodium 128 L, Potassium 4.1, Chloride 96 L, Carbon Dioxide 20.0 L, Anion Gap 12, BUN 29 H, Creatinine 1.75 H, Estim Creat Clear Calc 34.16, Est GFR (MDRD) Af Amer 36 L, Est GFR (MDRD) Non-Af 30 L, BUN/Creatinine Ratio 16.6, Glucose 603 H*, Calcium 7.7 L 03/21/21 17:38: POC Glucose > 500 H* 03/21/21 18:44: POC Glucose > 500 H* 03/21/21 19:48: POC Glucose 438 H 03/21/21 20:50: POC Glucose 359 H 03/21/21 21:00: Sodium 136, Potassium 3.4 L, Chloride 102, Carbon Dioxide 25.0, Anion Gap 9, BUN 31 H, Creatinine 1.81 H, Estim Creat Clear Calc 33.03, Est GFR (MDRD) Af Amer 35 L, Est GFR (MDRD) Non-Af 29 L, BUN/Creatinine Ratio 17.1, Glucose 371 H, Calcium 7.2 L 03/21/21 21:00: Troponin I High Sens 464 H* 03/21/21 21:49: POC Glucose 344 H 03/21/21 22:48: POC Glucose 323 H 03/22/21 00:45: POC Glucose 218 H 03/22/21 01:40: POC Glucose 231 H 03/22/21 02:48: POC Glucose 212 H 03/22/21 03:44: POC Glucose 244 H 03/22/21 04:48: POC Glucose 221 H 03/22/21 04:50: Sodium 133 L, Potassium 4.2, Chloride 104, Carbon Dioxide 22.0, Anion Gap 7, BUN 30 H, Creatinine 1.66 H, Estim Creat Clear Calc 36.01, Est GFR (MDRD) Af Amer 39 L, Est GFR (MDRD) Non-Af 32 L, BUN/Creatinine Ratio 18.1, Glucose 231 H, Calcium 7.2 L, Total Bilirubin 0.30, AST 19, ALT 15, Alkaline Phosphatase 96, Total Protein 5.1 L, Albumin 2.1 L, Globulin 3.0, Albumin/Globulin Ratio 0.7 L 03/22/21 04:50: WBC 7.3, RBC 3.50 L, Hgb 10.2 L, Hct 31.2 L, MCV 89.1, MCH 29.1, MCHC 32.7, RDW Std Deviation 41.1, RDW Coeff of Fady 12.6, Plt Count 154, MPV 10.3, Immature Gran % (Auto) 0.600, Neut % (Auto) 93.0 H, Lymph % (Auto) 3.3 L, [place] % (Auto) 3.0, Eos % (Auto) 0.0, Baso % (Auto) 0.1, Absolute Neuts (auto) 6.8, Absolute Lymphs (auto) 0.24 L, Nucleated RBC % 0, Differential Comment SCANNED 03/22/21 04:55: Magnesium 1.9 03/22/21 09:30: Sodium 132 L, Potassium 4.5, Chloride 104, Carbon Dioxide 24.0, Anion Gap 4 L, BUN 30 H, Creatinine 1.68 H, Estim Creat Clear Calc 37.41, Est GFR (MDRD) Af Amer 38 L, Est GFR (MDRD) Non-Af 32 L, BUN/Creatinine Ratio 17.9, Glucose 261 H, Calcium 7.4 L 03/22/21 09:39: POC Glucose 246 H Micro: Microbiology 03/21/21 18:45 Mucosa - Nose SARS-CoV-2 Antigen (Rapid) - Final ABG Data ABG results: ABG 03/21/21 18:20 Specimen Type ART Sample Site R Brach pH 7.37 Bicarbonate Actual 20.5 L Total CO2 22 Base Excess -5 L O2 Saturation 93 L ABG pCO2 35.3 ABG pO2 69 L O2 Delivery Device Cannula Liter Flow 2.0 Radiology Impression Chest X-Ray 03/21/21 15:40 IMPRESSION: 1.7 cm x 2.6 cm nodular density along the medial aspect of the right upper lobe adjacent to the right side of the trachea. Correlation with CT scan is recommended. Electronically Signed: Edward Stoll MD at 15:54 EDT , Service support , Charges/Coding Visit Charges Inpatient E&M: 63464 Init Hosp L3
[2021-03-22] MEDS: CHLORHEXIDINE GLUC 2% CLOTH 1 EACH TOWELETTE TOPICAL (11:33)
[2021-03-22] MEDS: Gabapentin 100 MG Capsule PO ×3 (11:34→23:05)
[2021-03-22 12:26] LABS: Bedside Glucose 335 mg/dL (70-110)
--- NOTE | 2021-03-22 14:10 | CASEMGMT ---
JOSE CASAS Face to Face with patient for initial transition planning/care coordination assessment. RN YESSENIA introduced self and role at [facility]. Patient sitting in chair, alert and oriented. Patient willing to participate in assessment and is able to answer all questions appropriately. Care providers, pharmacy, and demographics verified. Patient wishes to discharge home, with possible HHC, will monitor progress with therapy. Patient states she has no further needs or concerns at this time. CM to follow for discharge planning needs that may arise. PCP: Pat Specialists: , grid maker; Change Control Coordinator in [place] Preferred Pharmacy: [facility] Insurance: [facility] Prescription Benefit: yes Living Will/HPOA: yes, Basilio Garcia LNOK: Living Arrangements: Patient lives with in a 2 story home with bed and bath on first floor. 3-4 steps and railing to enter the home. Paitent states she is independent for selfcare. Transportation: DME/HHC: Patient has shower chair, cane, walker, and grab bars at home. Patient has previously been to [facility] and has had HHC in the past but could not recall agency. Disposition Plan: Patient to discharge home with family support and follow-up plans in place. Will monitor for HHC. Precious RODRIGUEZ, RN, CM
[2021-03-22] MEDS: Magnesium Sulfate 1 GM in 0.9% Normal Saline 100 ML IV (15:54)
--- NOTE | 2021-03-22 16:20 | CASEMGMT ---
Patient has previously had [facility] HHC. RN CM in to discuss HHC with patient. Patient was provided a list of HHC providers including quality and resource use data and consistent with the patient?s preferred geographic region, medical needs, and insurance network. Patient to review list and provided preferences. CM will continue to follow this patient and plan for a safe discharge.
[2021-03-22 17:00] LABS: Bedside Glucose 293 mg/dL (70-110)
[2021-03-22] MEDS: Pramipexole Di-HCl 1 MG Tablet 2 MG PO (18:54)
[2021-03-22] MEDS: Propranolol 40 MG Tablet PO (21:29)
[2021-03-22 22:10] LABS: Bedside Glucose 366 mg/dL (70-110)
[2021-03-22] MEDS: Heparin Injection (Vial) 5,000 UNIT/ML VIAL 5000 UNIT SC (23:05)
[2021-03-23] VITALS (9 sets, daily range): BP systolic 120–139; BP diastolic 53–59; PULSE 50–58; RESP 14–16; TEMP 36.9–37.3; O2SAT 95–98
[2021-03-23] MEDS: 0.9% Normal Saline 1,000 ML 125 ML IV (00:37)
--- NOTE | 2021-03-23 03:30 | NURSING ---
Report given to Cecily thurman at this time.
[2021-03-23] MEDS: Gabapentin 100 MG Capsule PO ×2 (05:44→11:59)
[2021-03-23 06:20] LABS: Absolute Lymphocyte Count 0.71 X10^3/uL (0.83-4.51); Absolute Neutrophil Count 4.5 X10^3/uL (2.0-7.7); Basophil# 0.01 X10^3/uL; Basophil% 0.2 % (0-1); Eosinophil# 0.07 X10^3/uL; Eosinophils% 1.2 % (0-5); Hematocrit 32.4 % (37-47); Hemoglobin 10.4 g/dL (12.0-15.0); Lymphocyte # 0.71 X10^3/ul (0.83-4.51); Mean Corp Hgb Conc 32.1 g/dL (32-36); Mean Corpuscular Hgb 28.6 pg (27.0-32.0); Mean Platelet Vol. 11.2 fl (6.2-12.0); Monocyte% 10.1 % (0-10); NRBC Flagged by Analyzer 0 % (0-5); Neutrophil # 4.49 X10^3/uL (2.7-7.7); Neutrophil % 75.7 % (47-70); Platelet Count 149 K/mm3 (150-450); RBC Distribution Width CV 12.5 % (11.6-14.6); RBC Distribution Width SD 40.9 fl (35.1-43.9); Red Blood Count 3.64 M/mm3 (4.2-5.4); White Blood Count 5.9 K/mm3 (4.4-11.0)
[2021-03-23] MEDS: Insulin Lispro 100 UNIT/ML INSULN.PEN SC ×2 (06:37→11:59)
[2021-03-23 06:46] LABS: Bedside Glucose 188 mg/dL (70-110)
[2021-03-23 06:53] LABS: ALB/GLOB Ratio 0.6 RATIO (0.9-2.4); AST(SGOT) 22 U/L (15-37); Alanine Aminotransfer ALT/SGPT 16 U/L (13-56); Alkaline Phosphatase 91 U/L (45-117); Anion Gap 6 (5-15); BUN 28 mg/dL (7-18); BUN/Creat Ratio 21.2 RATIO (10-20); Calcium,Total 7.5 mg/dL (8.5-10.1); Chloride 105 mmol/L (98-107); Creatinine, Serum 1.32 mg/dL (0.55-1.02); EST Glomerular Filtration Rate 42 mL/min (>60); Est Glom Filt Rate - Afr Amer 50 mL/min (>60); Estimated Creatinine Clearance 50.75 ml/min; Globulin 3.1 g/dL (2.2-4.2); Glucose 200 mg/dL (74-106); Potassium 4.3 mmol/L (3.5-5.1); Protein, Total 5.1 g/dL (6.4-8.2); Sodium Level 132 mmol/L (136-145)
[2021-03-23] MEDS: oxyCODONE 5 MG Tablet 10 MG PO ×2 (08:38→15:57)
[2021-03-23] MEDS: Ferrous Sulfate 325 MG Tablet PO (08:45)
[2021-03-23] MEDS: Propranolol 40 MG Tablet PO (08:45)
[2021-03-23] MEDS: Heparin Injection (Vial) 5,000 UNIT/ML VIAL 5000 UNIT SC (08:46)
[2021-03-23] MEDS: Ceftriaxone 1 GM/50 ML BAG IV (09:10)
--- NOTE | 2021-03-23 09:36 | ECHOD_ITS ---
Reason For Study: ACUTE NSTEMI Procedure This was a 2D Doppler, Color Flow transthoracic echocardiogram. Exam performed portable in patient room. Left Ventricle Normal left ventricle. The estimated ejection fraction is EF 55-60 %. Right Ventricle Normal right ventricle. Normal systolic function. Atria Normal left atrium. The right atrium is not well visualized. Mobile mass of the right atrium. Mitral Valve There is mild mitral annular calcification. Trivial mitral valve insufficiency. Tricuspid Valve Normal tricuspid valve. Trivial tricuspid valve insufficiency. Aortic Valve Aortic sclerosis, no stenosis. Pulmonic Valve The pulmonic valve is not well visualized. Great Vessels Normal aortic root. Pericardium/Pleural No pericardial effusion. MMode/2D Measurements & Calculations LVIDd: 4.7 cm IVSd: 0.91 cm LVOT diam: 2.0 cm LVIDs: 3.1 cm LVPWd: 0.92 cm LVOT area: 3.1 cm2 RVDd: 3.2 cm FS: 34.2 % LAV(MOD-bp): 74.7 ml LVAd ap4: 26.4 cm2 LVAd ap2: 25.8 cm2 LAV(MOD-bp) Indexed: 41.2 ml/m2 LVLd ap4: 7.4 cm LVLd ap2: 8.2 cm LAV(MOD-sp2): 66.4 ml EDV(MOD-sp4): 80.2 ml EDV(MOD-sp2): 69.2 ml LAV(MOD-sp4): 78.6 ml EDV(sp4-el): 79.6 ml EDV(sp2-el): 69.5 ml LVAs ap4: 15.3 cm2 LVAs ap2: 14.6 cm2 LVLs ap4: 6.5 cm LVLs ap2: 7.1 cm ESV(MOD-sp4): 31.6 ml ESV(MOD-sp2): 26.5 ml ESV(sp4-el): 30.8 ml ESV(sp2-el): 25.6 ml EF(MOD-sp4): 60.6 % EF(MOD-sp2): 61.7 % EF(sp4-el): 61.3 % SV(MOD-sp4): 48.6 ml SV(MOD-sp2): 42.7 ml SV(sp4-el): 48.8 ml LA dimension(2D): 4.0 cm LA A4 area: 24.6 cm2 Time Measurements MV dec time: 0.33 sec Doppler Measurements & Calculations MV E max eriberto: 82.7 cm/sec Lat Peak E' Eriberto: 8.7 cm/sec Med Peak E' Eriberto: 6.1 cm/sec MV A max eriberto: 107.5 cm/sec E/E' lat: 9.5 E/E' med: 13.6 MV E/A: 0.77 Ao V2 max: 178.0 cm/sec LV V1 max: 117.9 cm/sec PA V2 max: 89.4 cm/sec Ao max P.7 mmHg LV V1 max P.6 mmHg WARREN(V,D): 2.0 cm2 TR max eriberto: 282.1 cm/sec TR max P.8 mmHg ECHO/Echo Complete Interpretation Summary The estimated ejection fraction is EF 55-60 %. Small mobile echogenic mass noted in RA possible artifact Ordering Physician: Stephanie Coughlin Referring Physician: Leonard Stewart Performed By: Guerda Cisse RDCS, RVT
--- NOTE | 2021-03-23 09:45 | PCM.DC ---
Discharge Instructions Diet Discharge Diet: Low fat / Low cholesterol, 1800 Calorie Control Diet, 2000 mg Sodium Diet and Carb Control Diet Activity Discharge Activity: Return to Normal Activity Weight Bearing Status: Weight bearing as tolerated Follow Up Care Test Results: Test results from this visit will be discussed in further detail at your follow-up appointment, if applicable. Discharge Plan Admission Admit Date/Time: 03/21/21 16:37 Primary Reason for Your Visit: Acute HHS Attending Provider: Stephanie Coughlin Primary Care Provider: Leonard Stewart Consulting Providers: Fabian Harmon Discharge Orders/Prescriptions Prescriptions: Continued gabapentin 100 mg capsule 100 mg PO Q6H RF: 0 alendronate 70 mg tablet 70 mg PO MO RF: 0 furosemide 40 mg tablet 40 mg PO DAILY RF: 0 propranolol 40 mg tablet 40 mg PO BID RF: 0 oxycodone 10 mg tablet 10 ea PO Q6H PRN PRN (Reason: Pain) RF: 0 pramipexole 1 MG tablet 2 mg PO QHS RF: 0 ferrous sulfate 325 MG tablet 325 mg PO DAILY RF: 0 Humalog Mix 50-50 KwikPen 100 unit/mL (50-50) insulin pen 8 unit SUBCUT QHS RF: 0 Humalog Mix 50-50 KwikPen 100 unit/mL (50-50) insulin pen 10 unit SC BREAKFAST RF: 0 Discontinued sulfamethoxazole-trimethoprim 800-160 mg tablet 1 tab PO BID RF: 0 Referrals / Follow Up: Leonard Stewart DO [Primary Care Provider] - Within 2 Weeks Disposition Disposition (needs filled in before D/C Order can be placed): Home Health Service
--- NOTE | 2021-03-23 09:57 | DS.PCM_ITS ---
Providers Date of Admission: 03/21/21 Date of Discharge: 03/23/21 Primary Care Physician: Dr. Leonard Stewart, Consultations 03/22/21 05:49 Consult: Advertising Sales Associate / Pulmonary Medicine Routine Consulting Provider: Fabian Harmon Reason for Consult: HHS EMERGENT Consult: No MD Notified: Yes Date Notified: 03/22/21 Time Notified: 05:49 Method of Notification: Verbal Reason For Visit: ACUTE HHS Diagnosis Discharge Diagnosis (1) Hyperosmolar hyperglycemic state (HHS): Status: Resolved Code(s): E11.00 - Type 2 diabetes mellitus with hyperosmolarity without nonketotic hyperglycemic-hyperosmolar coma (NKHHC); E11.65 - Type 2 diabetes mellitus with hyperglycemia (2) Non-ST elevated myocardial infarction (non-STEMI): Status: Acute Code(s): I21.4 - Non-ST elevation (NSTEMI) myocardial infarction (3) Hypomagnesemia: Status: Acute Code(s): E83.42 - Hypomagnesemia (4) Cellulitis: Status: Acute Code(s): L03.90 - Cellulitis, unspecified Medications at Discharge Home Medications ferrous sulfate 325 mg PO DAILY 08/14/17 pramipexole 2 mg PO QHS 08/14/17 alendronate 70 mg tablet 70 mg PO MO 08/10/20 gabapentin 100 mg capsule 100 mg PO Q6H cap 08/10/20 furosemide 40 mg tablet 40 mg PO DAILY tablet 11/09/20 oxycodone 10 mg tablet 10 ea PO Q6H PRN PRN 11/09/20 Humalog Mix 50-50 KwikPen 8 unit SUBCUT QHS 03/21/21 Humalog Mix 50-50 KwikPen 10 unit SC BREAKFAST 03/21/21 aspirin 81 mg PO DAILY #30 cap 03/23/21 atorvastatin 20 mg PO DAILY #30 tab 03/23/21 cephalexin 500 mg PO 4X/DAY 5 Days #20 cap 03/23/21 metoprolol tartrate 25 mg PO BID #60 tab 03/23/21 Hospital Course Operations None Procedures 2-D Echocardiogram Summary of Care Provided Minutes Spent on Discharge: 45 Hospital Course: 76-year-old female with past medical history of type II DM who follows with Dr. Altman comes in with not feeling well for about 5 days. Patient was found to be in HHS with blood sugar more than 630. She had elevated troponin s more than 490. EKG showed no acute ST-T changes. She was admitted to ICU and managed on insulin drip. Patient was also found to have lower extremity cellulitis. She spiked a fever on 03/22/21, 102.5F, she was started on IV ceftriaxone. Patient continued to improve and was transferred out of ICU. Patient's blood cultures are pending at time of discharge. She was seen by cardiology and medical management was recommended. 2D echo showed an EF of 55 to 60%. She was discharged on aspirin, statin, metoprolol. She was not discharged on EDGARDO because of her kidney function. She will follow up with cardiology within 2 weeks as well as with endocrinology within 1 week. Patient was discharged home with home health Physical Exam Narrative Physical exam: General: Alert, Oriented x3, Cooperative, No apparent distress, Well developed HEENT: Atraumatic Oral: Very dry oral mucosa Neck: Supple Lungs: Clear to auscultation Cardiovascular: HS I+II, regular, no murmurs Abdomen: Bowel Sounds Present, Soft, Non Tender, no palpable organ Extremities: Trace bilateral edema, erythema of bilateral lower legs, with differential warmth Weight / BMI Weight Weight: 87.3 kg Body Mass Index (BMI) 34.7 ABG / Lab / Microbiology Data Result Diagrams: 03/23/21 06:12 03/23/21 06:12 Laboratory: Laboratory Results - last 24 hr 03/22/21 09:30: Sodium 132 L, Potassium 4.5, Chloride 104, Carbon Dioxide 24.0, Anion Gap 4 L, BUN 30 H, Creatinine 1.68 H, Estim Creat Clear Calc 37.41, Est GFR (MDRD) Af Amer 38 L, Est GFR (MDRD) Non-Af 32 L, BUN/Creatinine Ratio 17.9, Glucose 261 H, Calcium 7.4 L 03/22/21 11:35: POC Glucose 335 H 03/22/21 16:53: POC Glucose 293 H 03/22/21 21:29: POC Glucose 366 H 03/23/21 06:12: WBC 5.9, RBC 3.64 L, Hgb 10.4 L, Hct 32.4 L, MCV 89.0, MCH 28.6, MCHC 32.1, RDW Std Deviation 40.9, RDW Coeff of Fady 12.5, Plt Count 149 L, MPV 11.2, Immature Gran % (Auto) 0.800, Neut % (Auto) 75.7 H, Lymph % (Auto) 12.0 L, [place] % (Auto) 10.1 H, Eos % (Auto) 1.2, Baso % (Auto) 0.2, Absolute Neuts (auto) 4.5, Absolute Lymphs (auto) 0.71 L, Nucleated RBC % 0 03/23/21 06:12: Sodium 132 L, Potassium 4.3, Chloride 105, Carbon Dioxide 21.0, Anion Gap 6, BUN 28 H, Creatinine 1.32 H, Estim Creat Clear Calc 50.75, Est GFR (MDRD) Af Amer 50 L, Est GFR (MDRD) Non-Af 42 L, BUN/Creatinine Ratio 21.2 H, Glucose 200 H, Calcium 7.5 L, Total Bilirubin 0.30, AST 22, ALT 16, Alkaline Phosphatase 91, Total Protein 5.1 L, Albumin 2.0 L, Globulin 3.1, Albumin/Globulin Ratio 0.6 L 03/23/21 06:36: POC Glucose 188 H Microbiology: Microbiology 03/21/21 18:45 Mucosa - Nose SARS-CoV-2 Antigen (Rapid) - Final D/C Instructions Discharge Diet: Low fat / Low cholesterol, 1800 Calorie Control Diet, 2000 mg Sodium Diet and Carb Control Diet Weight Bearing Status: Weight bearing as tolerated Meaningful Use Info Meaningful Use Diagnoses (Choose all that apply): AMI AMI/Post PCI/Angioplasty Aspirin given w/in 24hrs of arrival?: No Reason no aspirin w/in 24hrs of arrival?: demand ischemia ASA at discharge?: Yes Antiplatelet Therapy at Discharge:: No Reason Antiplatelet Therapy not ordered:: Not indicated Statins at discharge?: Yes Edgardo/ARB at discharge?: No Reason Edgardo/ARB not ordered:: Worsening renal dysfunctn Beta Hector at discharge?: Yes Done w/ Acute CA measure.: Yes Discharge Plan Admission Admit Date/Time: 03/21/21 16:37 Primary Reason for Your Visit: Acute HHS Attending Provider: Stephanie Coughlin Primary Care Provider: Leonard Stewart Consulting Providers: Fabian Harmon ; Nithya Jenkins Instructions Additional Instructions / Restrictions: Take note of changes to your medications. Continue to monitor your blood sugars closely. Follow-up with your primary care doctor and under ground miner as kirsten spangler. Discharge Orders/Prescriptions Prescriptions: New aspirin 81 mg capsule 81 mg PO DAILY Qty: 30 RF: 0 atorvastatin 20 mg tablet 20 mg PO DAILY Qty: 30 RF: 0 metoprolol tartrate 25 mg tablet 25 mg PO BID Qty: 60 RF: 0 cephalexin 500 mg capsule 500 mg PO 4X/DAY 5 Days Qty: 20 RF: 0 Continued gabapentin 100 mg capsule 100 mg PO Q6H RF: 0 alendronate 70 mg tablet 70 mg PO MO RF: 0 furosemide 40 mg tablet 40 mg PO DAILY RF: 0 oxycodone 10 mg tablet 10 ea PO Q6H PRN PRN (Reason: Pain) RF: 0 pramipexole 1 MG tablet 2 mg PO QHS RF: 0 ferrous sulfate 325 MG tablet 325 mg PO DAILY RF: 0 Humalog Mix 50-50 KwikPen 100 unit/mL (50-50) insulin pen 8 unit SUBCUT QHS RF: 0 Humalog Mix 50-50 KwikPen 100 unit/mL (50-50) insulin pen 10 unit SC BREAKFAST RF: 0 Discontinued propranolol 40 mg tablet 40 mg PO BID RF: 0 sulfamethoxazole-trimethoprim 800-160 mg tablet 1 tab PO BID RF: 0 Referrals / Follow Up: Leonard Stewart DO [Primary Care Provider] - Within 2 Weeks Ian Collier MD [STAFF PHYSICIAN] - 03/27/21 1:00 pm Myriam Michaud PA [PHYSICIAN AUTOMATED ACCESS SYSTEMS TECHNICIAN] - 04/11/21 2:30 pm Disposition Disposition (needs filled in before D/C Order can be placed): Home Health Service Charges/Coding Visit Charges Inpatient E&M: 91945 Disch Hosp
--- NOTE | 2021-03-23 10:14 | CASEMGMT ---
Pt states she would like [facility] as her is active with them currently and referral faxed to [facility] for SN/PT/OT. Call to [facility] to notify of referral/discharge today, voices understanding and they will call this JOSE CASAS back about acceptance. Pt states no concerns with going home at time of discharge and states her son also lives with them. [place] JOSE CASAS
--- NOTE | 2021-03-23 10:28 | PCM.PN.INT ---
Assessment & Plan Assessment/Plan (1) Hyperosmolar hyperglycemic state (HHS): (2) Rheumatoid arthritis: (3) Venous stasis ulcer of right lower leg with edema of right lower leg: (4) Stage 3 chronic kidney disease due to type 2 diabetes mellitus: (5) Polyneuropathy due to type 2 diabetes mellitus: PLAN: RECOMMENDATIONS: 1. Consider titration up of insulin 2. Continue empiric antibiotics pending culture results 3. Consider wound care evaluation 4. Hemodynamically stable on room air. Will sign off from a critical care perspective IMPRESSIONS: 1. Hyperosmolar hyperglycemic state with poor baseline diabetic compliance Patient with no anion gap on presentation. Patient does have a significantly elevated hemoglobin A1c of 11.7 despite insulin therapy. Patient will be placed on basal insulin with sliding scale. Patient may need increased basal insulin, but defer to hospitalist. Patient does follow with endocrinology already. Hemodynamically stable on room air. Will sign off. 2. Non-ST elevation [place] Unclear if this represents a true ischemic event versus supply demand mismatch. Defer to hospitalist on involvement of cardiology. Continue telemetry. 3. Acute on chronic kidney disease stage IIIa secondary to osmotic diuresis Clinical suspicion for prerenal etiology secondary to osmotic diuresis associated with hyperglycemia. Continue with fluid resuscitation and monitor. No indication for renal replacement therapy. 4. Fever Unclear etiology at this time. Patient was treated for UTI prior to presentation. Lower extremities do have ulcers, but rubor improves with elevation indicating more venous stasis than cellulitis. Patient will be given empiric ceftriaxone. Pancultures will have to be followed up on. 5. Advanced age/venous stasis/rheumatoid arthritis/osteoporosis/polyneuropathy/debility Complicates care, management, recovery and prognosis. Patient does have multiple stasis ulcers of her lower extremities, but none appear to be infected on my evaluation. Okay to continue with baseline medications except for insulin regimen. Subjective Subjective Patient did well overnight. No acute issues were reported. Patient was able to be transferred out of the intensive care unit. Patient states that she feels good this morning. Patient is not requiring any supplemental oxygen. No dysuria is reported. Patient is not reporting any significant lower extremity discomfort. Objective Data Objective Data Vital Signs: Vital Signs Temp Pulse Resp BP Pulse Ox 37.1 C 55 L 16 139/59 H 97 03/23/21 08:36 03/23/21 08:36 03/23/21 08:36 03/23/21 08:36 03/23/21 08:36 Oxygen Flow Rate (L/min) 2 Oxygen Delivery Method Room Air Weight: 87.3 kg Body Mass Index (BMI) 34.7 Intake & Output: Intake and Output for Last 24 Hours 03/21/21 03/22/21 03/23/21 23:59 23:59 23:59 Intake Total 2632.80 / 2632.80 3813.65 / 3813.65 2055.42 / 2055.42 Output Total 200 / 200 1050 / 1050 200 / 200 Balance 2432.80 / 2432.80 2763.65 / 2763.65 1855.42 / 1855.42 Lab / Micro Data Result Diagrams: 03/23/21 06:12 03/23/21 06:12 Labs: Laboratory Results - last 24 hr 03/22/21 11:35: POC Glucose 335 H 03/22/21 16:53: POC Glucose 293 H 03/22/21 21:29: POC Glucose 366 H 03/23/21 06:12: WBC 5.9, RBC 3.64 L, Hgb 10.4 L, Hct 32.4 L, MCV 89.0, MCH 28.6, MCHC 32.1, RDW Std Deviation 40.9, RDW Coeff of Fady 12.5, Plt Count 149 L, MPV 11.2, Immature Gran % (Auto) 0.800, Neut % (Auto) 75.7 H, Lymph % (Auto) 12.0 L, [place] % (Auto) 10.1 H, Eos % (Auto) 1.2, Baso % (Auto) 0.2, Absolute Neuts (auto) 4.5, Absolute Lymphs (auto) 0.71 L, Nucleated RBC % 0 03/23/21 06:12: Sodium 132 L, Potassium 4.3, Chloride 105, Carbon Dioxide 21.0, Anion Gap 6, BUN 28 H, Creatinine 1.32 H, Estim Creat Clear Calc 50.75, Est GFR (MDRD) Af Amer 50 L, Est GFR (MDRD) Non-Af 42 L, BUN/Creatinine Ratio 21.2 H, Glucose 200 H, Calcium 7.5 L, Total Bilirubin 0.30, AST 22, ALT 16, Alkaline Phosphatase 91, Total Protein 5.1 L, Albumin 2.0 L, Globulin 3.1, Albumin/Globulin Ratio 0.6 L 03/23/21 06:36: POC Glucose 188 H Micro: Microbiology 03/21/21 18:45 Mucosa - Nose SARS-CoV-2 Antigen (Rapid) - Final Physical Exam Const no apparent distress General Appearance: cooperative and lethargic Nutritional Appearance: obese HEENT normocephalic, head/scalp atraumatic and moist oral mucous membranes Eyes PERRL and EOMs intact bilaterally Eyes Narrative: No scleral injection Neck full ROM and no lymphadenopathy Chest inspection of chest normal Resp normal respiratory effort and no use of accessory muscles Effort and Inspection: able to speak in complete sentences Auscultation: clear to auscultation bilaterally; Negative for rales, rhonchi or wheezes Percussion: Negative for dullness Cardio regular rate, regular rhythm, S1 normal heart sound, S2 normal heart sound, no murmurs, no rub and no gallops GI normal to inspection, nondistended, normoactive bowel sounds no CVA tenderness Extremity Extremity Narrative: Venous stasis changes of bilateral lower extremities. Does improve with elevation. Multiple superficial ulcers noted of lower extremities. None with exudate or fluctuance. General Extremity: edema; Negative for clubbing or cyanosis Skin no rashes or lesions noted Neuro oriented x3, CN's II-XII intact bilaterally, moves all extremities and no focal motor deficits Psych cooperative and affect normal Charges/Coding Visit Charges Inpatient E&M: 45030 Subs Hosp L2
--- NOTE | 2021-03-23 11:33 | CON.PCM.CA_ITS ---
Assessment & Plan Assessment/Plan (1) Non-ST elevated myocardial infarction (non-STEMI): (2) Diabetes: QUALIFIERS: Diabetes mellitus complication detail: without coma Diabetes mellitus complication status: with hypoglycemia Diabetes mellitus senior care insulin use: with marine oil terminal superintendent use Diabetes mellitus type: type 2 Qualified Code(s): E11.649 - Type 2 diabetes mellitus with hypoglycemia without coma; Z79.4 - USP (current) use of insulin (3) Stage 3 chronic kidney disease due to type 2 diabetes mellitus: PLAN: * her elevated troponins were likely related to demand mismatch from her elevated Glucose, recommend stress test/ diagnostic heart cath on OP basis * recommend that she be d/c home on aggressive cardiac medical management with ASA, statin. She is on Propranolol, may consider switching this to metoprolol. With her decrease renal function on admission, would not start on GRANT. HPI Consult Data Date of Consult: 03/23/21 HPI Narrative HPI Narrative: CASANDRA JONES, is a 76 F who presented with [facility] for generalized weakness and elevated BS. She has history of type II DM, follows with Dr. Collier, history of bariatric surgery, osteoporosis. Pt had not been taking her insulin ans she was bust taking care of her and not taking care of her self. On admission her troponin were noted to be elevated. These did not continue to elevated and it was felt that it could be related to demand mismatch from her elevated glucose. Pt notes that prior to admission she did not have any cardiac symptoms. She denied any CP/heaviness/tightness. She does not have any SOB that is concerning for her. She notes that she takes care of her and they have a big garden she tends too. [facility] Medical History Age related osteoporosis Anemia Anxiety Arthritis Cardiac murmur Carpal tunnel syndrome Depression Heart disease Hip fracture requiring operative repair Hypertension Kidney disease Myocardial infarct Osteoarthritis Type 2 diabetes mellitus without complications Home Medications ferrous sulfate 325 mg PO DAILY 08/14/17 [History Last Taken 03/20/21] pramipexole 2 mg PO QHS 08/14/17 [History Last Taken 03/20/21] alendronate 70 mg tablet 70 mg PO MO 08/10/20 [History Last Taken 2 Weeks Ago ~03/07/21] gabapentin 100 mg capsule 100 mg PO Q6H cap 08/10/20 [History Last Taken 03/21/21] furosemide 40 mg tablet 40 mg PO DAILY tablet 11/09/20 [History Last Taken 03/21/21] oxycodone 10 mg tablet 10 ea PO Q6H PRN PRN 11/09/20 [History Last Taken 03/21/21 11:00] propranolol 40 mg tablet 40 mg PO BID tablet 11/09/20 [History Last Taken 03/21/21] Humalog Mix 50-50 KwikPen 8 unit SUBCUT QHS 03/21/21 [History Last Taken 03/20/21] Humalog Mix 50-50 KwikPen 10 unit SC BREAKFAST 03/21/21 [History Last Taken 03/21/21] Allergy/AdvReac Type Severity Reaction Status Date / Time No Known Allergies Allergy Verified 03/21/21 13:54 Family History Mother Diabetes Father Diabetes Surgical History History of back surgery History of gastric bypass Social History (Updated 03/21/21 @ 18:[address] Stephanie Coughlin MD) household members: spouse Smoking Status: Unknown if ever smoked alcohol intake: never substance use type: does not use ROS Constitutional Constitutional: Reports fatigue, lethargy and malaise Eyes Eyes: Reports systems reviewed and no addt'l complaints, except as documented ENT HEENT: Reports systems reviewed and no addt'l complaints, except as documented Cardiovascular Cardiovascular: Reports as per HPI Respiratory/Chest Respiratory/Chest: Reports systems reviewed and no addt'l complaints, except as documented Gastrointestinal Gastrointestinal: Reports systems reviewed and no addt'l complaints, except as documented Musculoskeletal Musculoskeletal: Reports systems reviewed and no addt'l complaints, except as documented Neurologic Neurologic: Reports systems reviewed and no addt'l complaints, except as documented Physical Exam Const alert, oriented x3, no apparent distress and average body habitus HEENT normocephalic, head/scalp atraumatic, hearing grossly normal bilaterally, external ears normal, nasal mucous membranes and turbinates normal and moist oral mucous membranes Eyes PERRL, EOMs intact bilaterally, conjunctivae normal, no scleral icterus and normal visual bills by confrontation Neck full ROM, no lymphadenopathy, supple and no JVD Resp normal respiratory effort and clear to auscultation bilaterally Cardio regular rate, regular rhythm, S1 normal heart sound, S2 normal heart sound, no murmurs, no rub, no gallops, no clicks, no JVD and peripheral pulses 2+ throughout GI normal to inspection, nondistended, normoactive bowel sounds, soft to palpation, non-tender and non-distended Extremity no clubbing, cyanosis or edema Neuro oriented x3, CN's II-XII intact bilaterally, moves all extremities and no focal motor deficits Objective Data Vital Signs: Vital Signs Temp Pulse Resp BP Pulse Ox 98.7 F 58 L 16 139/59 H 97 03/23/21 08:36 03/23/21 10:58 03/23/21 08:36 03/23/21 08:36 03/23/21 10:53 Oxygen Flow Rate (L/min) 2 Oxygen Delivery Method Room Air Weight: 192 lb 7.417 oz Body Mass Index (BMI) 34.7 Intake & Output: Intake and Output for Last 24 Hours 03/21/21 03/22/21 03/23/21 23:59 23:59 23:59 Intake Total 2632.80 / 2632.80 3813.65 / 3813.65 2105.42 / 2105.42 Output Total 200 / 200 1050 / 1050 200 / 200 Balance 2432.80 / 2432.80 2763.65 / 2763.65 1905.42 / 1905.42 Lab / Micro Data Result Diagrams: 03/23/21 06:12 03/23/21 06:12 Labs: Laboratory Results - last 24 hr 03/22/21 11:35: POC Glucose 335 H 03/22/21 16:53: POC Glucose 293 H 03/22/21 21:29: POC Glucose 366 H 03/23/21 06:12: WBC 5.9, RBC 3.64 L, Hgb 10.4 L, Hct 32.4 L, MCV 89.0, MCH 28.6, MCHC 32.1, RDW Std Deviation 40.9, RDW Coeff of Fady 12.5, Plt Count 149 L, MPV 11.2, Immature Gran % (Auto) 0.800, Neut % (Auto) 75.7 H, Lymph % (Auto) 12.0 L, [place] % (Auto) 10.1 H, Eos % (Auto) 1.2, Baso % (Auto) 0.2, Absolute Neuts (auto) 4.5, Absolute Lymphs (auto) 0.71 L, Nucleated RBC % 0 03/23/21 06:12: Sodium 132 L, Potassium 4.3, Chloride 105, Carbon Dioxide 21.0, Anion Gap 6, BUN 28 H, Creatinine 1.32 H, Estim Creat Clear Calc 50.75, Est GFR (MDRD) Af Amer 50 L, Est GFR (MDRD) Non-Af 42 L, BUN/Creatinine Ratio 21.2 H, Glucose 200 H, Calcium 7.5 L, Total Bilirubin 0.30, AST 22, ALT 16, Alkaline Phosphatase 91, Total Protein 5.1 L, Albumin 2.0 L, Globulin 3.1, Albumin/Globulin Ratio 0.6 L 03/23/21 06:36: POC Glucose 188 H Micro: Microbiology 03/21/21 20:10 Urine, Catheterized Urine Culture - Preliminary Culture exhibits no growth. Cardiology Labs/Tests 03/23/21 06:12: WBC 5.9, RBC 3.64 L, Hgb 10.4 L, Hct 32.4 L, MCV 89.0, MCH 28.6, MCHC 32.1, Plt Count 149 L, MPV 11.2, Immature Gran % (Auto) 0.800, Neut % (Auto) 75.7 H, Lymph % (Auto) 12.0 L, [place] % (Auto) 10.1 H, Eos % (Auto) 1.2, Baso % (Auto) 0.2, Absolute Neuts (auto) 4.5, Nucleated RBC % 0 03/23/21 06:12: Sodium 132 L, Potassium 4.3, Chloride 105, Carbon Dioxide 21.0, Anion Gap 6, BUN 28 H, Creatinine 1.32 H, Est GFR (MDRD) Af Amer 50 L, Est GFR (MDRD) Non-Af 42 L, BUN/Creatinine Ratio 21.2 H, Glucose 200 H, Calcium 7.5 L, Total Bilirubin 0.30 Rhythm: EK03/17/21: Marked sinus bradycardia with 1st degree A-V block ECHO: 03/23/21 The estimated ejection fraction is EF 55-60 %. Small mobile echogenic mass noted in RA possible artifact CXR: 03/21/21: 1.7 cm x 2.6 cm nodular density along the medial aspect of the right upper lobe adjacent to the right side of the trachea. Correlation with CT scan is recommended.
[2021-03-23 12:11] LABS: Bedside Glucose 343 mg/dL (70-110)
--- NOTE | 2021-03-23 13:53 | CASEMGMT ---
Received call back from Aparna at [facility] and they are able to accept the patient. JOSE CM updated patient, no further questions or concerns.
--- NOTE | 2021-03-23 14:21 | PHA.DC.MR ---
Pharmacy Service has performed discharge medication reconciliation for this patient. No new medications at time of discharge. Medications reviewed are from previously reported home medications. Home Medications ferrous sulfate 325 mg PO DAILY 08/14/17 pramipexole 2 mg PO QHS 08/14/17 alendronate 70 mg tablet 70 mg PO MO 08/10/20 gabapentin 100 mg capsule 100 mg PO Q6H cap 08/10/20 furosemide 40 mg tablet 40 mg PO DAILY tablet 11/09/20 oxycodone 10 mg tablet 10 ea PO Q6H PRN PRN 11/09/20 propranolol 40 mg tablet 40 mg PO BID tablet 11/09/20 Humalog Mix 50-50 KwikPen 8 unit SUBCUT QHS 03/21/21 Humalog Mix 50-50 KwikPen 10 unit SC BREAKFAST 03/21/21 The patient's discharge medication list was reviewed for discrepancies and discrepancies were resolved.
--- NOTE | 2021-03-23 15:46 | NURSING ---
spoke with son Cesar reviewed dc instructions and all medication changes will come in 1 hour to pick her up
--- NOTE | 2021-03-26 14:08 | CASEMGMT ---
RN CM Discharge Follow Up Phone Call: NEFTALI: Sydni Strata:3 Call Date: 03/26/21 Discharge Date: 03/23/21 Time of Call:1408 Duration:<1 min Admitting Dx:Acute HHS RN YESSENIA attempted to complete follow up phone call after recent hospitalization. Call forwarded to an identified voicemail, left message with call back information and reason for the call.
== END 2021-03-23 17:51 | disposition home health service (06) | DRG 638 ==
LOC: ED 16:40 → ICU 03-22 08:36 → PCU 03-23 03:59
PROVIDERS: Admitting Provider Internal Medicine; Emergency Provider Emergency Medicine; PCP Family Medicine; Visit Provider Internal Medicine
DX: E11.00 Type 2 diabetes mellitus with hyperosmolarity without nonketotic hyperglycemic-hyperosmolar coma (NKHHC) (principal); I24.8 Other forms of acute ischemic heart disease; L03.115 Cellulitis of right lower limb; L03.116 Cellulitis of left lower limb; L97.919 Non-pressure chronic ulcer of unspecified part of right lower leg with unspecified severity; L97.929 Non-pressure chronic ulcer of unspecified part of left lower leg with unspecified severity; I83.009 Varicose veins of unspecified lower extremity with ulcer of unspecified site; E11.22 Type 2 diabetes mellitus with diabetic chronic kidney disease; I95.9 Hypotension, unspecified; D64.9 Anemia, unspecified; E11.65 Type 2 diabetes mellitus with hyperglycemia; D50.9 Iron deficiency anemia, unspecified; E83.42 Hypomagnesemia; E86.0 Dehydration; F32.9 Major depressive disorder, single episode, unspecified; F41.9 Anxiety disorder, unspecified; G56.00 Carpal tunnel syndrome, unspecified upper limb; I12.9 Hypertensive chronic kidney disease with stage 1 through stage 4 chronic kidney disease, or unspecified chronic kidney disease; I44.0 Atrioventricular block, first degree; T38.3X6A Underdosing of insulin and oral hypoglycemic [antidiabetic] drugs, initial encounter; R91.1 Solitary pulmonary nodule; E66.9 Obesity, unspecified; Z79.899 Other long term (current) drug therapy
CPT/HCPCS: 36415; 36600; 71045; 80048; 80053; 81001; 82009; 82803; 82962; 83036; 83735; 84484; 85025; 87040; 87077; 87086; 87186; 87426; 93005; 93306; 97162; 97166; 97535; 97802; 99251; 99285; J7030; G0463; J2405; J7799

== ENCOUNTER → 2021-05-25 07:36 | Outpatient (CLI) | payer MEDICARE, SELFPAY ==
--- NOTE | 2021-05-25 13:55 | STRESSREP ---
Stress Test Report Pharmacologic myocardial perfusion stress test. 76-year-old lady with a history of coronary artery disease. Stress protocol: Resting KG demonstrates sinus bradycardia with a rate of 54 bpm first-degree AV block is noted resting blood pressure is 140/78 mmHg. 0.4 mg of regadenoson was infused per usual protocol followed by rapid venous saline flush injection continuous EKG monitoring was performed. The maximum heart rate attained was 63 bpm which was 43% of max impact at heart rate the maximum workload was 1 metabolic equivalent. At rest there were no ST or T wave changes noted to suggest abnormal flow reserve and at peak infusion nonspecific ST changes were noted with did not meet the criteria for ischemia. No clinical angina was noted. Myocardial perfusion protocol. 11.7 mCi of technetium 99m sestamibi was injected at rest. 0.4 mg of regadenoson was infused per usual protocol and at peak infusion 34.0 mCi of technetium 99m sestamibi was injected stress images were obtained stress and rest images were reconstructed and compared in the short axis vertical long and horizontal long axis. Gated images were also obtained per Perfusion SPECT analysis: Review of the stress images demonstrate normal uptake of tracer noted in all areas of the myocardium. The resting images similarly demonstrate normal uptake of tracer noted in all areas of the myocardium. No reversibility is noted to suggest ischemia and no previous infarct is noted. Gated SPECT analysis: The gated ejection fraction is 76%. Conclusion: Normal pharmacologic myocardial perfusion stress test. Preserved ejection fraction.
== END ==
PROVIDERS: PCP Family Medicine; Visit Provider Internal Medicine Cardiovascular Disease
DX: I25.2 Old myocardial infarction (principal)
CPT/HCPCS: 78452; 93017; A9500; A4216; J2785

== ENCOUNTER → 2021-06-25 | Outpatient (CLI) | payer MEDICARE, SELFPAY | END | disposition home or self-care (01) | PROVIDERS: Visit Provider Family Medicine | DX: U07.1 COVID-19 (principal) | CPT/HCPCS: 87633; 87635; U0005; U0003 ==

== ENCOUNTER 2021-06-29 08:17 | Outpatient (CLI) | payer MEDICARE, SELFPAY ==
[2021-06-29] MEDS: 0.9% Saline Lock 10 ML Syringe IV (08:37)
[2021-06-29 08:40] VITALS: BP 152/54; PULSE 50; RESP 18; TEMP 36.9; O2SAT 94; BMI 40.6
[2021-06-29 09:37] VITALS: BP 139/59; PULSE 53; RESP 16; TEMP 37; O2SAT 94
[2021-06-29 10:34] VITALS: BP 131/50; PULSE 51; RESP 16; TEMP 36.9; O2SAT 93
== END 2021-06-29 10:37 | disposition home or self-care (01) ==
LOC: MS3OUT 08:18 → MS3 08:19
PROVIDERS: Referring Provider Nurse Practitioner Adult Health; Visit Provider Nurse Practitioner Adult Health
DX: Z23 Encounter for immunization (principal); U07.1 COVID-19
CPT/HCPCS: J7050; M0245; Q0245; A4216

== ENCOUNTER 2021-11-07 23:44 | Inpatient (IN) | payer MEDICARE, SELFPAY ==
[2021-11-07 23:45] VITALS: BP 129/40; PULSE 83; RESP 30; TEMP 39; O2SAT 92; BMI 42.5
[2021-11-08] VITALS (7 sets, daily range): BP systolic 100–114; BP diastolic 35–58; PULSE 65–80; RESP 16–20; TEMP 36.8–39.5; O2SAT 90–98; BMI 41.2
--- NOTE | 2021-11-08 00:04 | EKG12_ITS ---
Test Reason : FEVER Blood Pressure : / mmHG Vent. Rate : 084 BPM Atrial Rate : 084 BPM P-R Int : 286 ms QRS Dur : 082 ms QT Int : 368 ms P-R-T Axes : 053 103 046 degrees QTc Int : 434 ms Sinus rhythm with 1st degree A-V block Otherwise normal ECG Confirmed by NILAY MURRAY, JUSTINA ([id number]), legal editor AKANKSHA ESCOBAR ([id number]) on 11/14/2021 10:54:44 AM Referred By: HEMA Confirmed By:JUSTINA PEMBERTON MD
--- NOTE | 2021-11-08 00:04 | RAD_ITS ---
STUDY: X-RAY CHEST REASON FOR EXAM: Female, 76 years old. fever TECHNIQUE: AP portable. 2:05 AM COMPARISON: 03/21/2021 FINDINGS: LUNGS: Low lung volumes. No consolidation. Minimal left pleural effusion. No pneumothorax. MEDIASTINUM: Right paratracheal focal soft tissue attenuation again demonstrated possibly vasculature, but mass is not excluded. Aorta atherosclerotic. CARDIAC SILHOUETTE: Not enlarged. BONES AND SOFT TISSUES: Degenerative changes in the dorsal spine. No acute abnormalities. RAD/Chest 1 View (Portable) IMPRESSION: Minimal left pleural effusion. No infiltrates. Right paratracheal soft tissue fullness unchanged possibly vasculature. Follow-up CT chest may be helpful if not previously evaluated. Electronically Signed: Naomi Vilchis MD at 2:29 EDT ,
--- NOTE | 2021-11-08 00:05 | EX.ED.DYSGE1 ---
HPI History of Present Illness Chief Complaint: Fever Informant: patient and family Onset/Context/Timing Onset: Today Context: Gradual Onset Timing: Continuous Current Severity: Mild Maximum Severity: Mild Narrative Narrative: 76-year-old female history of diabetes and anemia. No recent illness or hospitalization. Was doing well. Tonight started having chills around 6 PM. Then she developed diarrhea. No nausea or vomiting. No cough. No abdominal pain. No dysuria. Family called the squad and brought her in. Here she has a fever of 102.2. Prior similar symptoms: No Recent Illness/Hospitalization: No PFSH PFSH Medical History Age related osteoporosis Anemia Anxiety Arthritis Cardiac murmur Carpal tunnel syndrome Cellulitis Depression Dermatitis Diabetes Edema of both lower extremities Femoral neck fracture Fracture of femur, subcapital, right, closed Hip fracture requiring operative repair History of non-ST elevation myocardial infarction (NSTEMI) (03/21/21) Open wound of left lower extremity Osteoarthritis Rheumatoid arthritis Traumatic ulcer of left lower leg Type 2 diabetes mellitus without complications Ulcer of right lower extremity with fat layer exposed Venous stasis dermatitis of both lower extremities Home Medications ferrous sulfate 325 mg PO DAILY 08/14/17 [History Last Taken 03/20/21] alendronate 70 mg tablet 70 mg PO MO 08/10/20 [History Last Taken 2 Weeks Ago ~03/07/21] gabapentin 100 mg capsule 200 mg PO Q4H cap 08/10/20 [History Last Taken 03/21/21] furosemide 40 mg tablet 40 mg PO DAILY tablet 11/09/20 [History Last Taken 03/21/21] aspirin 81 mg PO DAILY #30 cap 03/23/21 [Rx Last Taken Unknown] metoprolol tartrate 25 mg PO BID #60 tab 03/23/21 [Rx Last Taken Unknown] Humalog Mix 50-50 KwikPen U-100 Insulin 100 unit/mL subcutaneous pen 12 unit SUBCUT BID #15 ml NS 03/27/21 [Rx Last Taken Unknown] blood sugar diagnostic #100 ea 03/27/21 [Rx Last Taken Unknown] insulin lispro 100 unit/mL subcutaneous pen See Rx Instructions SUBCUT TID #15 ml 03/27/21 [Rx Last Taken Unknown] pen needle, diabetic 32 gauge x #100 ea 03/27/21 [Rx Last Taken Unknown] oxycodone 5 mg tablet 10 mg PO DAILY tab 05/11/21 [History Last Taken Unknown] pramipexole 1 mg tablet 2 mg PO QHS 05/11/21 [History Last Taken Unknown] atorvastatin 20 mg tablet 10 mg PO DAILY #30 tab 06/21/21 [Rx Last Taken Unknown] propranolol 40 mg PO BID 06/29/21 [History Last Taken Unknown] Allergy/AdvReac Type Severity Reaction Status Date / Time No Known Allergies Allergy Verified 09/27/21 15:30 Family History Mother Diabetes Father Diabetes Surgical History History of back surgery History of gastric bypass Social History (Updated 11/08/21 @ 02:[address] Hetal Garrido MD) household members: other details: Lives with her son. Smoking Status: Never smoker alcohol intake: never substance use type: does not use ROS ROS ED ROS Narrative Fever and chills. Redness to her lower extremities. Review of Systems ROS Unobtainable: Denies due to encephalopathy Constitutional Constitutional ED: Reports chills and fever(s) Eyes Eyes: Denies change in vision ENT ENT ED: Denies ear pain Cardiovascular Cardiovascular: Denies chest pain Respiratory/Chest Respiratory/Chest: Denies cough or dyspnea Gastrointestinal Gastrointestinal: Reports diarrhea; Denies abdominal pain, nausea or vomiting Genitourinary Genitourinary ED: Denies dysuria Musculoskeletal Musculoskeletal: Denies myalgias Integumentary Denies rash Neurologic Neurologic: Denies headache(s) Psychiatric Psychiatric: Denies depression Endocrine Endocrinology: Denies polyuria Allergic/Immunologic Allergic/Immunologic ED: Denies urticaria EXAM Physical Exam Narrative Exam Narrative: 76-year-old female vital signs are stable she does have a fever of 102.2. H EENT exam mildly dry mucous membranes. Posterior pharynx normal. No trouble swallowing or breathing. Neck nontender no lymphadenopathy. Lungs clear to auscultation bilaterally. Heart regular rhythm rate about 85 no murmur. Abdomen soft nontender. Patient moving all 4 Const Vital Signs: 11/07/21 23:45 11/07/21 23:52 11/08/21 00:22 Temperature 102.2 F H 103.1 F H Temperature Source Oral Oral Pulse Rate 83 Respiratory Rate 30 H Respiratory Effort Normal Non-Labored Respiratory Pattern Normal Blood Pressure 129/40 H Blood Pressure Mean 69 Pulse Ox 92 Oxygen Delivery Method Room Air Room Air Oxygen Flow Rate (L/min) 11/08/21 01:21 Temperature 100.8 F H Temperature Source Oral Pulse Rate 80 Respiratory Rate 18 Respiratory Effort Respiratory Pattern Blood Pressure 105/40 L Blood Pressure Mean 61 Pulse Ox 95 Oxygen Delivery Method Nasal Cannula Oxygen Flow Rate (L/min) 2 Positive well nourished, well developed and obese; Negative for cachectic, contractures or unkempt General Appearance ED: well developed and NAD; Negative for unkempt, cachectic, contractures, cyanotic or diaphoretic Nutritional Appearance: obese; Negative for cachectic HEENT Reports dry mucous membranes; Denies moist mucous membranes Negative for trauma or tenderness Mouth ED: Yes dry mucous membranes Mouth: dry mucous membranes Eyes PERRL and EOMs intact bilaterally Neck no lymphadenopathy, supple and no JVD General: Negative for tenderness Chest Wall inspection of chest normal and palpation of chest normal Resp normal respiratory effort and clear to auscultation bilaterally Auscultation: Negative for rales, rhonchi, wheezes or diminished lung sounds Cardio regular rate, regular rhythm, S1 normal heart sound, S2 normal heart sound and no murmurs GI normal to inspection, nondistended, normoactive bowel sounds, non-tender, non-distended and no masses Auscultation: normoactive bowel sounds Palpation: soft; Negative for tender, guarding or rebound tenderness present Back/Spine no CVA tenderness General Back: Negative for CVA tenderness Cervical Spine: Negative for cervical spine tenderness Thoracic Spine / Upper Back: Negative for thoracic spinal tenderness Extremity normal to inspection General Extremety ED: Negative for edema or tenderness General Extremity: Negative for edema Neuro oriented x3 Sensorium / Orientation: alert; Negative for orientation impaired, lethargic or stuporous Motor Exam: strength 5/5 throughout Psych mental status grossly normal Appearance: Negative for unkempt Attitude: No agitated Mood & Affect: Negative for depressed, anxious or tearful Skin No no rashes or lesions noted and no wounds Skin Narrative: Bilateral lower extremity redness. Nontender. May be venous stasis. Possible cellulitis. MDM MDM MDM Narrative Medical decision making narrative: 76-year-old female history of diabetes and anemia. Fever and chills tonight with episode of diarrhea. Will be treated with IV fluids and Tylenol. She undergo sepsis protocol. We will start IV antibiotic Zosyn. Repeat exams the patient has been doing well. Her vital signs are stable at 1:30 in the morning. Have gone over all test results with her and her daughter at bedside. She will be admitted overnight. And reassessed. Cultures are pending. She is receiving a liter of IV fluids. She did receive Tylenol. And we are awaiting the chest x-ray. Lab Data Attestation: I reviewed the patient's lab results. Lab results narrative: CBC shows an elevated white count of 13.1. H&H of 10.7 and 32 PT/INR and PTT were unremarkable electrolytes show a gap of 8. BUN of 51 creatinine 1.52. Liver enzymes are normal. Lactic acid is 1.0. Urinalysis normal. No whites or reds. No bacteria. No nitrates. Labs: Laboratory Results - last 24 hr 11/08/21 11/08/21 11/08/21 00:00 00:00 00:00 WBC Cancelled Corrected WBC Cancelled RBC Cancelled Hgb Cancelled Hct Cancelled MCV Cancelled MCH Cancelled MCHC Cancelled RDW Std Deviation Cancelled RDW Coeff of Fady Cancelled Plt Count Cancelled MPV Cancelled Immature Gran % (Auto) Cancelled Neut % (Auto) Cancelled Lymph % (Auto) Cancelled Starr % (Auto) Cancelled Eos % (Auto) Cancelled Baso % (Auto) Cancelled Absolute Neuts (auto) Cancelled Absolute Lymphs (auto) Cancelled Total Counted Cancelled Neutrophils % (Manual) Cancelled Band Neutrophils % Cancelled Lymphocytes % (Manual) Cancelled Monocytes % (Manual) Cancelled Eosinophils % (Manual) Cancelled Basophils % (Manual) Cancelled Metamyelocytes % Cancelled Myelocytes % Cancelled Promyelocytes % Cancelled Blast Cells % Cancelled Plasma Cell % (Manual) Cancelled Other Cells % Cancelled Nucleated RBC % Cancelled Nucleated RBCs/100 WBC Cancelled Differential Comment Cancelled Diff Path Review Cancelled Hypersegmented Neuts Cancelled Atypical Lymphocytes Cancelled Reactive Lymphocytes Cancelled Smudge Cells Cancelled Toxic Granulation Cancelled Toxic Vacuolation Cancelled Dohle Bodies Cancelled Gab Rods Cancelled Platelet Estimate Cancelled Plt Morphology Comment Cancelled RBC Morphology Cancelled Polychromasia Cancelled Hypochromasia Cancelled Poikilocytosis Cancelled Basophilic Stippling Cancelled Anisocytosis Cancelled Microcytosis Cancelled Macrocytosis Cancelled Spherocytes Cancelled Sickle Cells Cancelled Target Cells Cancelled Tear Drop Cells Cancelled Ovalocytes Cancelled Stomatocytes Cancelled [place] Bodies Cancelled [place] Cells Cancelled Bite Cells Cancelled Crenated Cell Cancelled Acanthocytes (Spur) Cancelled Rouleaux Cancelled Schistocytes Cancelled PT 13.7 INR 1.1 APTT 30.9 Sodium 137 Potassium 3.9 Chloride 104 Carbon Dioxide 25.0 Anion Gap 8 BUN 51 H Creatinine 1.52 H Estim Creat Clear Calc 41.95 Est GFR (MDRD) Af Amer 43 L Est GFR (MDRD) Non-Af 35 L BUN/Creatinine Ratio 33.6 H Glucose 214 H Lactic Acid Calcium 8.6 Total Bilirubin 0.40 AST 12 L ALT 17 Alkaline Phosphatase 101 Total Protein 6.6 Albumin 3.2 Globulin 3.4 Albumin/Globulin Ratio 0.9 Urine Color Urine Clarity Urine pH Ur Specific [place] Urine Protein Urine Glucose (UA) Urine Ketones Urine Occult Blood Urine Nitrite Urine Bilirubin Urine Urobilinogen Ur Leukocyte Esterase Urine RBC Urine WBC Ur Squamous Epith Cells Urine Bacteria Urine Mucus 11/08/21 11/08/21 11/08/21 00:00 00:30 00:40 WBC 13.1 H Corrected WBC RBC 3.53 L Hgb 10.7 L Hct 32.0 L MCV 90.7 MCH 30.3 MCHC 33.4 RDW Std Deviation 43.8 RDW Coeff of Fady 13.3 Plt Count 209 MPV 10.5 Immature Gran % (Auto) 0.900 Neut % (Auto) 89.1 H Lymph % (Auto) 4.3 L Starr % (Auto) 5.5 Eos % (Auto) 0.0 Baso % (Auto) 0.2 Absolute Neuts (auto) 11.6 H Absolute Lymphs (auto) 0.56 L Total Counted Neutrophils % (Manual) Band Neutrophils % Lymphocytes % (Manual) Monocytes % (Manual) Eosinophils % (Manual) Basophils % (Manual) Metamyelocytes % Myelocytes % Promyelocytes % Blast Cells % Plasma Cell % (Manual) Other Cells % Nucleated RBC % 0 Nucleated RBCs/100 WBC Differential Comment SCANNED Diff Path Review Hypersegmented Neuts Atypical Lymphocytes Reactive Lymphocytes Smudge Cells Toxic Granulation Toxic Vacuolation Dohle Bodies Gab Rods Platelet Estimate Plt Morphology Comment RBC Morphology Polychromasia Hypochromasia Poikilocytosis Basophilic Stippling Anisocytosis Microcytosis Macrocytosis Spherocytes Sickle Cells Target Cells Tear Drop Cells Ovalocytes Stomatocytes [place] Bodies [place] Cells Bite Cells Crenated Cell Acanthocytes (Spur) Rouleaux Schistocytes PT INR APTT Sodium Potassium Chloride Carbon Dioxide Anion Gap BUN Creatinine Estim Creat Clear Calc Est GFR (MDRD) Af Amer Est GFR (MDRD) Non-Af BUN/Creatinine Ratio Glucose Lactic Acid 1.0 Calcium Total Bilirubin AST ALT Alkaline Phosphatase Total Protein Albumin Globulin Albumin/Globulin Ratio Urine Color Yellow Urine Clarity Clear Urine pH 6.0 Ur Specific [place] 1.010 Urine Protein 100 H Urine Glucose (UA) Normal Urine Ketones Negative Urine Occult Blood Negative Urine Nitrite Negative Urine Bilirubin Negative Urine Urobilinogen Normal Ur Leukocyte Esterase Negative Urine RBC 0 SEEN Urine WBC 0 SEEN Ur Squamous Epith Cells 0 SEEN Urine Bacteria RARE Urine Mucus 0 SEEN Radiography Chest X-Ray - ED: 1 View, Read by ED Physician, Normal, Heart, Lungs, Mediastinum, Bony Structures, No Acute Disease and Chronic Changes Diagnostic Testing: Chest x-ray, portable, single view interpreted myself shows no acute process. There are chronic changes but sudden change from prior Rhythm Strip Rhythm Strip: Sinus Rhythm Rate: 84 Ectopy: None EKG Initial EKG: Attestation: I personally reviewed and interpreted this EKG as follows: Interpretation: Sinus Rhythm and No Acute Injury Pattern Comments: Normal sinus rhythm rate 84. First-degree AV block. Discharge Plan Dx/Rx/DC Orders Clinical Impression: Fever, Leukocytosis, History of diabetes mellitus, History of renal insufficiency Disposition Disposition: Acute Care Hospital [facility]
[2021-11-08] MEDS: Acetaminophen 500 MG Tablet 1000 MG PO (00:11)
[2021-11-08] MEDS: 0.9% Normal Saline 1,000 ML 999 ML IV ×2 (00:11→02:00)
[2021-11-08 00:41] LABS: International Normalized Ratio 1.1; Prothrombin Time (Protime)PT. 13.7 SECONDS (11.7-14.9)
[2021-11-08 00:42] LABS: Partial Thromboplast Time 30.9 Seconds (24.1-36.2)
[2021-11-08 00:43] LABS: ALB/GLOB Ratio 0.9 RATIO (0.9-2.4); AST(SGOT) 12 U/L (15-37); Alanine Aminotransfer ALT/SGPT 17 U/L (13-56); Albumin, Serum 3.2 g/dL (3.2-5.0); Alkaline Phosphatase 101 U/L (45-117); Anion Gap 8 (5-15); BUN 51 mg/dL (7-18); BUN/Creat Ratio 33.6 RATIO (10-20); Calcium,Total 8.6 mg/dL (8.5-10.1); Chloride 104 mmol/L (98-107); Creatinine, Serum 1.52 mg/dL (0.55-1.02); EST Glomerular Filtration Rate 35 mL/min (>60); Est Glom Filt Rate - Afr Amer 43 mL/min (>60); Estimated Creatinine Clearance 41.95 ml/min; Globulin 3.4 g/dL (2.2-4.2); Glucose 214 mg/dL (74-106); Potassium 3.9 mmol/L (3.5-5.1); Protein, Total 6.6 g/dL (6.4-8.2); Sodium Level 137 mmol/L (136-145)
[2021-11-08 00:50] LABS: Mucous, Urine 0 SEEN /hpf (<or=2+); Red Blood Cells-Urine 0 SEEN /hpf (0-5); Squamous Epithelial Cells - UA 0 SEEN /hpf (5-10); White Blood Cells 0 SEEN /hpf (0-5)
[2021-11-08 00:50] LABS: Absolute Lymphocyte Count 0.56 X10^3/uL (0.83-4.51); Absolute Neutrophil Count 11.6 X10^3/uL (2.0-7.7); Basophil# 0.02 X10^3/uL; Basophil% 0.2 % (0-1); Hemoglobin 10.7 g/dL (12.0-15.0); Lymphocyte # 0.56 X10^3/ul (0.83-4.51); Lymphocyte % 4.3 % (19-41); Mean Corp Hgb Conc 33.4 g/dL (32-36); Mean Corpuscular Hgb 30.3 pg (27.0-32.0); Mean Corpuscular Volume 90.7 fL (81-99); Mean Platelet Vol. 10.5 fl (6.2-12.0); Monocyte# 0.72 X10^3/uL; Monocyte% 5.5 % (0-10); NRBC Flagged by Analyzer 0 % (0-5); Neutrophil # 11.63 X10^3/uL (2.7-7.7); Neutrophil % 89.1 % (47-70); POSITIVE DIFFERENTIAL YES; Platelet Count 209 K/mm3 (150-450); RBC Distribution Width CV 13.3 % (11.6-14.6); RBC Distribution Width SD 43.8 fl (35.1-43.9); Red Blood Count 3.53 M/mm3 (4.2-5.4); White Blood Count 13.1 K/mm3 (4.4-11.0)
[2021-11-08 00:51] LABS: Color, Urine Yellow (Yellow); Glucose, Dipstick Normal (Normal); Ketone-Dipstick Negative (Negative); Leukocyte Esterase-Dipstick Negative /ul (Negative); Nitrite-Dipstick Negative (Negative); Occult Blood-Urine Negative /ul (Negative); Protein-Dipstick 100 mg/dl (Negative); Urine Bilirubin Dipstick Negative (Negative); Urine Clarity Clear (Clear); Urine Urobilinogen Normal (Normal)
[2021-11-08 00:51] LABS: Differential Indicated SCAN CRITERIA MET
[2021-11-08 00:57] LABS: Bacteria RARE /hpf (None Seen)
[2021-11-08 01:25] LABS: Differential Comment SCANNED
--- NOTE | 2021-11-08 02:13 | PCM.HP.STD ---
HPI - General General Date of Admission: 11/08/21 Date of Service: 11/08/21 Chief Complaint: Fatigue, malaise, diarrhea x 1, fever. HPI Narrative The patient is a 76 y/o F w/ PMHx: RLS, Chronic anemia, Anxiety and Depression, Rheumatoid arthritis, Diabetes mellitus type II with neuropathy, CKD stage III unclear subtype, OA who presents to the [facility] ED on 11/08/21 with history of onset fatigue, malaise and onset of chills approximately 6 PM on day prior to presentation with development of loose stool x 1 only with no specific nausea, emesis associated however patient had development of a fever prompting family to bring her in for ED evaluation. Work-up in the ED included T-max 103.1, heart rate 83, BP 129/40, respiratory rate 30, 92% on room air, CBC with WC 13.1, hemoglobin 10.7, platelets 209 with left shift and lymphopenia, unremarkable coags, CMP with BUN/creatinine 51/1.52, glucose 214, lactic acid 1 otherwise hepatic profile not marked appearing, urinalysis with no obvious evidence of UTI and no marked dehydration evident, blood culture pending per ED, urine culture pending per ED, chest x-ray with chronic changes with no acute cardiopulmonary findings. In the ED patient ministered normal saline, Tylenol as well as Zosyn therapy. [facility] Medical History Age related osteoporosis Anemia Anxiety Arthritis Cardiac murmur Carpal tunnel syndrome Cellulitis Depression Dermatitis Diabetes Edema of both lower extremities Femoral neck fracture Fracture of femur, subcapital, right, closed Hip fracture requiring operative repair History of non-ST elevation myocardial infarction (NSTEMI) (03/21/21) Open wound of left lower extremity Osteoarthritis Rheumatoid arthritis Traumatic ulcer of left lower leg Type 2 diabetes mellitus without complications Ulcer of right lower extremity with fat layer exposed Venous stasis dermatitis of both lower extremities Home Medications ferrous sulfate 325 mg PO DAILY 08/14/17 [History Last Taken 03/20/21] alendronate 70 mg tablet 70 mg PO MO 08/10/20 [History Last Taken 2 Weeks Ago ~03/07/21] gabapentin 100 mg capsule 200 mg PO Q4H cap 08/10/20 [History Last Taken 03/21/21] furosemide 40 mg tablet 40 mg PO DAILY tablet 11/09/20 [History Last Taken 03/21/21] aspirin 81 mg PO DAILY #30 cap 03/23/21 [Rx Last Taken Unknown] metoprolol tartrate 25 mg PO BID #60 tab 03/23/21 [Rx Last Taken Unknown] Humalog Mix 50-50 KwikPen U-100 Insulin 100 unit/mL subcutaneous pen 12 unit SUBCUT BID #15 ml NS 03/27/21 [Rx Last Taken Unknown] blood sugar diagnostic #100 ea 03/27/21 [Rx Last Taken Unknown] insulin lispro 100 unit/mL subcutaneous pen See Rx Instructions SUBCUT TID #15 ml 03/27/21 [Rx Last Taken Unknown] pen needle, diabetic 32 gauge x 32 #100 ea 03/27/21 [Rx Last Taken Unknown] oxycodone 5 mg tablet 10 mg PO DAILY tab 05/11/21 [History Last Taken Unknown] pramipexole 1 mg tablet 2 mg PO QHS 05/11/21 [History Last Taken Unknown] atorvastatin 20 mg tablet 10 mg PO DAILY #30 tab 06/21/21 [Rx Last Taken Unknown] propranolol 40 mg PO BID 06/29/21 [History Last Taken Unknown] Allergy/AdvReac Type Severity Reaction Status Date / Time No Known Allergies Allergy Verified 09/27/21 15:30 Family History Mother Diabetes Father Diabetes Surgical History History of back surgery History of gastric bypass Social History (Updated 11/08/21 @ 02:[address] Hetal Garrido MD) household members: other details: Lives with her son. Smoking Status: Never smoker alcohol intake: never substance use type: does not use ROS ROS Narrative Admission Review of Systems: CONSTITUTIONAL: No weight loss, + fever, chills, weakness or fatigue. HEENT: + Mild congestion, rhinorrhea, altered voice. Eyes: No visual loss, blurred vision, double vision or yellow sclerae. Ears, Nose, Throat: No hearing loss, sneezing. SKIN: + Bilateral lower extremity chronic venous stasis skin changes. CARDIOVASCULAR: No chest pain, chest pressure or chest discomfort, palpitations, edema, orthopnea, syncopal events. RESPIRATORY: + Mild hypoxia noted in the ED although denies dyspnea, recent cough, increased sputum, wheezing, hemoptysis. GASTROINTESTINAL: + Anorexia, diarrhea x1, No nausea, vomiting, abdominal pain, melena, BRBPR. GENITOURINARY: No dysuria, frequency, urgency or retention. NEUROLOGICAL: No headache, dizziness, syncope, paralysis, ataxia, numbness or tingling in the extremities, focal weakness, change in bowel or bladder control, seizure. MUSCULOSKELETAL: + muscle, back pain, joint pain or stiffness. HEMATOLOGIC: + anemia, bleeding or bruising. LYMPHATICS: No enlarged nodes. No history of splenectomy. PSYCHIATRIC: No history of depression or anxiety. ENDOCRINOLOGIC: No reports of sweating, cold or heat intolerance. No polyuria or polydipsia. ALLERGIES: No history of asthma, hives, eczema or rhinitis. Vital Signs Vital Signs Vital Signs: 11/07/21 23:45 11/07/21 23:52 11/08/21 00:22 Temperature 102.2 F H 103.1 F H Temperature Source Oral Oral Pulse Rate 83 Respiratory Rate 30 H Respiratory Effort Normal Non-Labored Respiratory Pattern Normal Blood Pressure 129/40 H Blood Pressure Mean 69 Pulse Ox 92 Oxygen Delivery Method Room Air Room Air Oxygen Flow Rate (L/min) 11/08/21 01:21 Temperature 100.8 F H Temperature Source Oral Pulse Rate 80 Respiratory Rate 18 Respiratory Effort Respiratory Pattern Blood Pressure 105/40 L Blood Pressure Mean 61 Pulse Ox 95 Oxygen Delivery Method Nasal Cannula Oxygen Flow Rate (L/min) 2 Weight Weight: 183 lb 3.266 oz Body Mass Index (BMI) 42.5 Physical Exam Narrative Physical Examination: General: Awake, alert, oriented x 3 and cooperative, seated upright in the ED bed, fatigued appearing. Skin: Normal color, normal turgor, no icterus, no cyanosis except bilateral lower extremity venous stasis skin changes. HEENT: AT/NC, EOMI, PERRLA, moderately dry MM, no carotid bruits or JVD noted. Lungs: Diffusely diminished, greater bases, mildly decreased effort, no rales, ronchi or wheezing. Heart: Currently regular rate and rhythm; no gallop, rub audible. Abdomen: Soft, NTTP, ND, mildly hyperactive BS, no HSM. Extremities: No cyanosis, no clubbing, bilateral lower extremity venous stasis skin changes as noted, pedal to proximal scherer 2+ pitting edema which is chronic for her. Neurological: Patient awake, alert, oriented as noted, cognitive function appears baseline intact; pupils equally reactive to light and accommodation, cranial nerves II-XII grossly normal, moving all 4 extremities, no focal deficits, strength moderately to severely globally decreased. Psychiatric: Affect appears fatigued, no acute evidence of depressive or anxiety feelings. Results Lab / Micro Data Result Diagrams: 11/08/21 00:30 11/08/21 00:00 Labs: Laboratory Results - last 24 hr 11/08/21 00:00: WBC Cancelled, Corrected WBC Cancelled, RBC Cancelled, Hgb Cancelled, Hct Cancelled, MCV Cancelled, MCH Cancelled, MCHC Cancelled, RDW Std Deviation Cancelled, RDW Coeff of Fady Cancelled, Plt Count Cancelled, MPV Cancelled, Immature Gran % (Auto) Cancelled, Neut % (Auto) Cancelled, Lymph % (Auto) Cancelled, Swift % (Auto) Cancelled, Eos % (Auto) Cancelled, Baso % (Auto) Cancelled, Absolute Neuts (auto) Cancelled, Absolute Lymphs (auto) Cancelled, Total Counted Cancelled, Neutrophils % (Manual) Cancelled, Band Neutrophils % Cancelled, Lymphocytes % (Manual) Cancelled, Monocytes % (Manual) Cancelled, Eosinophils % (Manual) Cancelled, Basophils % (Manual) Cancelled, Metamyelocytes % Cancelled, Myelocytes % Cancelled, Promyelocytes % Cancelled, Blast Cells % Cancelled, Plasma Cell % (Manual) Cancelled, Other Cells % Cancelled, Nucleated RBC % Cancelled, Nucleated RBCs/100 WBC Cancelled, Differential Comment Cancelled, Diff Path Review Cancelled, Hypersegmented Neuts Cancelled, Atypical Lymphocytes Cancelled, Reactive Lymphocytes Cancelled, Smudge Cells Cancelled, Toxic Granulation Cancelled, Toxic Vacuolation Cancelled, Dohle Bodies Cancelled, Gab Rods Cancelled, Platelet Estimate Cancelled, Plt Morphology Comment Cancelled, RBC Morphology Cancelled, Polychromasia Cancelled, Hypochromasia Cancelled, Poikilocytosis Cancelled, Basophilic Stippling Cancelled, Anisocytosis Cancelled, Microcytosis Cancelled, Macrocytosis Cancelled, Spherocytes Cancelled, Sickle Cells Cancelled, Target Cells Cancelled, Tear Drop Cells Cancelled, Ovalocytes Cancelled, Stomatocytes Cancelled, Gavin-Bertha Bodies Cancelled, [place] Cells Cancelled, Bite Cells Cancelled, Crenated Cell Cancelled, Acanthocytes (Spur) Cancelled, Rouleaux Cancelled, Schistocytes Cancelled 11/08/21 00:00: PT 13.7, INR 1.1, APTT 30.9 11/08/21 00:00: Sodium 137, Potassium 3.9, Chloride 104, Carbon Dioxide 25.0, Anion Gap 8, BUN 51 H, Creatinine 1.52 H, Estim Creat Clear Calc 41.95, Est GFR (MDRD) Af Amer 43 L, Est GFR (MDRD) Non-Af 35 L, BUN/Creatinine Ratio 33.6 H, Glucose 214 H, Calcium 8.6, Total Bilirubin 0.40, AST 12 L, ALT 17, Alkaline Phosphatase 101, Total Protein 6.6, Albumin 3.2, Globulin 3.4, Albumin/Globulin Ratio 0.9 11/08/21 00:00: Lactic Acid 1.0 11/08/21 00:30: WBC 13.1 H, RBC 3.53 L, Hgb 10.7 L, Hct 32.0 L, MCV 90.7, MCH 30.3, MCHC 33.4, RDW Std Deviation 43.8, RDW Coeff of Fady 13.3, Plt Count 209, MPV 10.5, Immature Gran % (Auto) 0.900, Neut % (Auto) 89.1 H, Lymph % (Auto) 4.3 L, Swift % (Auto) 5.5, Eos % (Auto) 0.0, Baso % (Auto) 0.2, Absolute Neuts (auto) 11.6 H, Absolute Lymphs (auto) 0.56 L, Nucleated RBC % 0, Differential Comment SCANNED 11/08/21 00:40: Urine Color Yellow, Urine Clarity Clear, Urine pH 6.0, Ur Specific [place] 1.010, Urine Protein 100 H, Urine Glucose (UA) Normal, Urine Ketones Negative, Urine Occult Blood Negative, Urine Nitrite Negative, Urine Bilirubin Negative, Urine Urobilinogen Normal, Ur Leukocyte Esterase Negative, Urine RBC 0 SEEN, Urine WBC 0 SEEN, Ur Squamous Epith Cells 0 SEEN, Urine Bacteria RARE, Urine Mucus 0 SEEN Rhythm Strip Rhythm Strip: Sinus Rhythm Rate: 84 Ectopy: None Assessment & Plan Assessment/Plan (1) Fever: QUALIFIERS: Fever type: unspecified Qualified Code(s): R50.9 - Fever, unspecified (2) Leukocytosis: QUALIFIERS: Leukocytosis type: unspecified Qualified Code(s): D72.829 - Elevated white blood cell count, unspecified PLAN: The patient is a 76 y/o F w/ PMHx: RLS, Chronic anemia, Anxiety and Depression, Rheumatoid arthritis, Diabetes mellitus type II with neuropathy, CKD stage III unclear subtype, OA who presents to the [facility] ED on 11/08/21 with history of onset fatigue, malaise and onset of chills approximately 6 PM on day prior to presentation with development of loose stool x 1 only with no specific nausea, emesis associated however patient had development of a fever prompting family to bring her in for ED evaluation. #1. Suspected Acute Viral Syndrome: UA unremarkable, chest x-ray with chronic changes however given mild hypoxia will judiciously hydrate and plan repeat chest x-ray in a.m. in case any findings blossom, procalcitonin requested, respiratory viral panel requested, if any recurrent diarrhea or becomes profuse will obtain stool cultures, will maintain on fall and aspiration precautions, given debility with advanced age and suspect again acute viral illness will obtain assessment per PT/OT/case management for discharge planning. #2. Suspected BL LE venous stasis: Initially ED physician concern for LE cellulitis, but BL and noted present but more pronouced, zosyn x 1 given in the ED. Will place snug kanchan wraps with BL LE elevation. #3. Chronic Kidney Disease Stage III, unclear subtype: Admission BUN/Cr 51/1.52, baseline renal function 1.3-1.5, repeat BMP in AM. #4. Diabetes mellitus type II with neuropathy: Hold oral home regimen, continue home insulin regimen, ADA diet, accu checks w/ ISS, continue patient home gabapentin regimen. #5. Hypertension: Continue home regimen including propranolol, metoprolol, Lasix with hold parameters as needed, PRN hydralazine. #6. Hyperlipidemia: We will continue patient home statin therapy. #7. Anxiety and depression: From current review of list not on any psychiatric regimen, encourage continued outpatient follow-up. #8. Rheumatoid arthritis: Patient not on any chronic medications, encourage continued outpatient follow-up with rheumatology. #9. Chronic normocytic anemia/iron deficiency anemia: Admission hemoglobin 10.7, baseline more recently 10-11, stable, trend, continue iron supplementation. #10. Restless leg syndrome: We will continue patient home pramipexole regimen. #11. DVT Prophylaxis: SCDs, lovenox. #12. CODE status: Patient AKSHAT is her son and daughter and living will is currently in place. Discussed CODE status at length including difference between FULL code, DNR-CCA and DNR-CC status. Following discussions about the differences in these status, requested DNR-CCA, no intubation status. Advanced Care Planning Face to Face Time: 16 minutes. Charges/Coding Visit Charges OBSV E&M: 48502 Initial observation care L3 Procedures Hospitalists Procedures: [id number] Advncd Care Plan 30 Min
[2021-11-08] MEDS: 0.9% Normal Saline 1,000 ML 100 ML IV (03:10)
[2021-11-08 03:21] LABS: Absolute Lymphocyte Count 0.59 X10^3/uL (0.83-4.51); Absolute Neutrophil Count 13.9 X10^3/uL (2.0-7.7); Basophil# 0.01 X10^3/uL; Basophil% 0.1 % (0-1); Hematocrit 30.6 % (37-47); Hemoglobin 10.1 g/dL (12.0-15.0); Lymphocyte # 0.59 X10^3/ul (0.83-4.51); Lymphocyte % 3.8 % (19-41); Mean Corpuscular Hgb 30.1 pg (27.0-32.0); Mean Corpuscular Volume 91.1 fL (81-99); Mean Platelet Vol. 10.4 fl (6.2-12.0); Monocyte# 0.69 X10^3/uL; Monocyte% 4.5 % (0-10); NRBC Flagged by Analyzer 0 % (0-5); Neutrophil # 13.89 X10^3/uL (2.7-7.7); Neutrophil % 90.3 % (47-70); POSITIVE DIFFERENTIAL YES; Platelet Count 192 K/mm3 (150-450); RBC Distribution Width CV 13.2 % (11.6-14.6); RBC Distribution Width SD 43.8 fl (35.1-43.9); Red Blood Count 3.36 M/mm3 (4.2-5.4); White Blood Count 15.4 K/mm3 (4.4-11.0)
[2021-11-08 03:35] LABS: Differential Indicated SCAN CRITERIA MET
[2021-11-08 03:37] LABS: Differential Comment SCANNED
[2021-11-08 04:21] LABS: AST(SGOT) 12 U/L (15-37); Alanine Aminotransfer ALT/SGPT 13 U/L (13-56); Albumin, Serum 2.8 g/dL (3.2-5.0); Alkaline Phosphatase 83 U/L (45-117); Anion Gap 8 (5-15); BUN 51 mg/dL (7-18); Calcium,Total 7.7 mg/dL (8.5-10.1); Chloride 107 mmol/L (98-107); EST Glomerular Filtration Rate 36 mL/min (>60); Est Glom Filt Rate - Afr Amer 43 mL/min (>60); Estimated Creatinine Clearance 41.34 ml/min; Globulin 2.8 g/dL (2.2-4.2); Glucose 212 mg/dL (74-106); Potassium 3.6 mmol/L (3.5-5.1); Protein, Total 5.6 g/dL (6.4-8.2); Sodium Level 138 mmol/L (136-145)
[2021-11-08 04:28] LABS: Procalcitonin 14.97 ng/mL (0.00-0.09)
[2021-11-08] MEDS: Insulin Lispro 100 UNIT/ML INSULN.PEN SC ×4 (06:50→21:08)
[2021-11-08 07:00] LABS: Bedside Glucose 249 mg/dL (74-106)
[2021-11-08] MEDS: Enoxaparin 40 MG/0.4 ML Syringe SC (08:32)
[2021-11-08] MEDS: Furosemide 40 MG Tablet PO (08:32)
[2021-11-08] MEDS: Ferrous Sulfate 325 MG Tablet PO (08:32)
[2021-11-08] MEDS: Gabapentin 100 MG Capsule 200 MG PO ×3 (08:32→16:30)
--- NOTE | 2021-11-08 09:10 | RAD_ITS ---
STUDY: X-RAY CHEST REASON FOR EXAM: Female, 76 years old. Hypoxia TECHNIQUE: Single AP portable view of the chest. COMPARISON: Comparison is made with prior study dated 11/08/2021 at 2:05 AM. FINDINGS: Mild degree of vascular congestion and CHF. There has been mild improvement as compared with prior study. Mild blunting of both costophrenic angles. There is borderline cardiomegaly. Normal mediastinum and cori. Normal visualized pulmonary arteries. There is atherosclerotic calcification of the aortic arch with tortuosity. There are diffuse degenerative changes of the visualized thoracic spine. Normal visualized ribs, clavicles, and shoulders. There is no demonstrated abnormality of the visualized soft tissue structures of the upper abdomen. RAD/Chest 1 View (Portable) IMPRESSION: Mild degree of residual vascular congestion and CHF. Electronically Signed: Edward Stoll MD at 13:33 EDT ,
[2021-11-08] MEDS: Ondansetron 4 MG/2 ML Vial IV (09:33)
[2021-11-08 11:41] LABS: Bedside Glucose 335 mg/dL (74-106)
--- NOTE | 2021-11-08 13:11 | PN.HOSP_ITS ---
Subjective Subjective Patient seen and examined. She complained of feeling weak and unwell. She denied any fever, chills, nausea, vomiting or diarrhea. Review of systems is otherwise negative. wbc has trended up to 15.4. Objective Data Objective Data Vital Signs: Vital Signs Temp Pulse Resp BP Pulse Ox 98.2 F 67 20 H 113/58 L 90 11/08/21 08:30 11/08/21 08:30 11/08/21 08:30 11/08/21 08:30 11/08/21 08:30 Oxygen Flow Rate (L/min) 2 Oxygen Delivery Method Room Air Weight: 178 lb 2.136 oz Body Mass Index (BMI) 41.2 Intake & Output: Intake and Output for Last 24 Hours 11/06/21 11/07/21 11/08/21 23:59 23:59 23:59 Intake Total 2099 / 2099 Balance 2099 / 2099 Lab / Micro Data Result Diagrams: 11/08/21 03:10 11/08/21 03:10 Labs: Laboratory Results - last 24 hr 11/08/21 00:00: WBC Cancelled, Corrected WBC Cancelled, RBC Cancelled, Hgb Cancelled, Hct Cancelled, MCV Cancelled, MCH Cancelled, MCHC Cancelled, RDW Std Deviation Cancelled, RDW Coeff of Fady Cancelled, Plt Count Cancelled, MPV Cancelled, Immature Gran % (Auto) Cancelled, Neut % (Auto) Cancelled, Lymph % (Auto) Cancelled, [place] % (Auto) Cancelled, Eos % (Auto) Cancelled, Baso % (Auto) Cancelled, Absolute Neuts (auto) Cancelled, Absolute Lymphs (auto) Cancelled, Total Counted Cancelled, Neutrophils % (Manual) Cancelled, Band Neutrophils % Cancelled, Lymphocytes % (Manual) Cancelled, Monocytes % (Manual) Cancelled, Eosinophils % (Manual) Cancelled, Basophils % (Manual) Cancelled, Metamyelocytes % Cancelled, Myelocytes % Cancelled, Promyelocytes % Cancelled, Blast Cells % Cancelled, Plasma Cell % (Manual) Cancelled, Other Cells % Cancelled, Nucleated RBC % Cancelled, Nucleated RBCs/100 WBC Cancelled, Differential Comment Cancelled, Diff Path Review Cancelled, Hypersegmented Neuts Cancelled, Atypical Lymphocytes Cancelled, Reactive Lymphocytes Cancelled, Smudge Cells Cancelled, Toxic Granulation Cancelled, Toxic Vacuolation Cancelled, Dohle Bodies Cancelled, Gab Rods Cancelled, Platelet Estimate Cancelled, Plt Morphology Comment Cancelled, RBC Morphology Cancelled, Polychromasia Cancelled, Hypochromasia Cancelled, Poikilocytosis Cancelled, Basophilic Stippling Cancelled, Anisocytosis Cancelled, Microcytosis Cancelled, Macrocytosis C ancelled, Spherocytes Cancelled, Sickle Cells Cancelled, Target Cells Cancelled, Tear Drop Cells Cancelled, Ovalocytes Cancelled, Stomatocytes Cancelled, Gavin- Ruth Bodies Cancelled, [place] Cells Cancelled, Bite Cells Cancelled, Crenated Cell Cancelled, Acanthocytes (Spur) Cancelled, Rouleaux Cancelled, Schistocytes Cancelled 11/08/21 00:00: PT 13.7, INR 1.1, APTT 30.9 11/08/21 00:00: Sodium 137, Potassium 3.9, Chloride 104, Carbon Dioxide 25.0, Anion Gap 8, BUN 51 H, Creatinine 1.52 H, Estim Creat Clear Calc 41.95, Est GFR (MDRD) Af Amer 43 L, Est GFR (MDRD) Non-Af 35 L, BUN/Creatinine Ratio 33.6 H, Glucose 214 H, Calcium 8.6, Total Bilirubin 0.40, AST 12 L, ALT 17, Alkaline Phosphatase 101, Total Protein 6.6, Albumin 3.2, Globulin 3.4, Albumin/Globulin Ratio 0.9 11/08/21 00:00: Lactic Acid 1.0 11/08/21 00:30: WBC 13.1 H, RBC 3.53 L, Hgb 10.7 L, Hct 32.0 L, MCV 90.7, MCH 30.3, MCHC 33.4, RDW Std Deviation 43.8, RDW Coeff of Fady 13.3, Plt Count 209, MPV 10.5, Immature Gran % (Auto) 0.900, Neut % (Auto) 89.1 H, Lymph % (Auto) 4.3 L, [place] % (Auto) 5.5, Eos % (Auto) 0.0, Baso % (Auto) 0.2, Absolute Neuts (auto) 11.6 H, Absolute Lymphs (auto) 0.56 L, Nucleated RBC % 0, Differential Comment SCANNED 11/08/21 00:40: Urine Color Yellow, Urine Clarity Clear, Urine pH 6.0, Ur Specific [place] 1.010, Urine Protein 100 H, Urine Glucose (UA) Normal, Urine Ketones Negative, Urine Occult Blood Negative, Urine Nitrite Negative, Urine Bilirubin Negative, Urine Urobilinogen Normal, Ur Leukocyte Esterase Negative, Urine RBC 0 SEEN, Urine WBC 0 SEEN, Ur Squamous Epith Cells 0 SEEN, Urine Bacteria RARE, Urine Mucus 0 SEEN 11/08/21 03:10: Procalcitonin 14.97 H 11/08/21 03:10: WBC 15.4 H, RBC 3.36 L, Hgb 10.1 L, Hct 30.6 L, MCV 91.1, MCH 30.1, MCHC 33.0, RDW Std Deviation 43.8, RDW Coeff of Fady 13.2, Plt Count 192, MPV 10.4, Immature Gran % (Auto) 1.300 H, Neut % (Auto) 90.3 H, Lymph % (Auto) 3.8 L, [place] % (Auto) 4.5, Eos % (Auto) 0.0, Baso % (Auto) 0.1, Absolute Neuts (auto) 13.9 H, Absolute Lymphs (auto) 0.59 L, Nucleated RBC % 0, Differential Comment SCANNED 11/08/21 03:10: Sodium 138, Potassium 3.6, Chloride 107, Carbon Dioxide 23.0, Anion Gap 8, BUN 51 H, Creatinine 1.50 H, Estim Creat Clear Calc 41.34, Est GFR (MDRD) Af Amer 43 L, Est GFR (MDRD) Non-Af 36 L, BUN/Creatinine Ratio 34.0 H, Glucose 212 H, Calcium 7.7 L, Total Bilirubin 0.60, AST 12 L, ALT 13, Alkaline Phosphatase 83, Total Protein 5.6 L, Albumin 2.8 L, Globulin 2.8, Albumin/Globulin Ratio 1.0 11/08/21 06:42: POC Glucose 249 H 11/08/21 11:21: POC Glucose 335 H Micro: Microbiology 11/08/21 00:00 Blood Culture (Wb) - Anticubital Left Blood Culture - Preliminary 11/08/21 03:25 Mucosa - Nasopharyngeal Respiratory Panel (PCR) - Final Radiography Diagnostic Testing: Radiology Impression Chest X-Ray 11/08/21 00:04 IMPRESSION: Minimal left pleural effusion. No infiltrates. Right paratracheal soft tissue fullness unchanged possibly vasculature. Follow-up CT chest may be helpful if not previously evaluated. Electronically Signed: Naomi Vilchis MD at 2:29 EDT , Rhythm Strip Rhythm Strip: Sinus Rhythm Rate: 84 Ectopy: None Physical Exam Const alert, oriented x3 and no apparent distress Exam Limitations: no limitations HEENT head/scalp atraumatic and moist oral mucous membranes Head and Scalp: normocephalic Eyes EOMs intact bilaterally and conjunctivae normal Neck no lymphadenopathy, supple and no JVD Resp normal respiratory effort, no retractions, no use of accessory muscles and clear to auscultation bilaterally Cardio regular rate, regular rhythm, S1 normal heart sound, S2 normal heart sound and no murmurs GI normal to inspection, nondistended, normoactive bowel sounds, soft to palpation, non-tender, non-distended and hepatosplenomegaly Extremity Extremity Narrative: mild erythema over left thumb- says she was bitten by a bug. No tenderness and minimal differential warmth Peripheral Pulses: Yes pulses 2+ throughout Skin Skin Narrative: as under extremities Neuro oriented x3, CN's II-XII intact bilaterally and moves all extremities Sensorium / Orientation: awake and alert Psych affect normal Assessment & Plan Assessment/Plan (1) Leukocytosis: QUALIFIERS: Leukocytosis type: unspecified Qualified Code(s): D72.829 - Elevated white blood cell count, unspecified (2) Fever: QUALIFIERS: Fever type: unspecified Qualified Code(s): R50.9 - Fever, unspecified PLAN: #FEver and general debility * also has leucocytosis * source of fever is unclear * blood and urine cultures pending * her procalcitonin was elevated, and her leucocytosis is mainly neutrophil predominant * This points towards a bacterial infection more than a viral infection. * Will start on IV Zosyn empirically * Continue gentle hydration with IV fluids. Await blood cultures. * * #Bilateral lower extremity venous stasis: Stable. No evidence of infection #CKD stage III: Cr is 1.5, which is around his baseline. Will monitor. #Type 2 diabetes mellitus with neuropathy: On insulin Lantus. Insulin sliding scale. Accu-Cheks AC at bedtime. On gabapentin. #Hyperlipidemia: On statin #Anxiety and depression: not on any meds. Will monitor #Rheumatoid arthritis: Currently not on any medication. Follow-up with PCP on outpatient basis referral to rheumatology as needed #Chronic iron deficiency anemia: Stable. Hemoglobin is around 10. DVT prophylaxis: lovenox Charges/Coding Visit Charges Inpatient E&M: 07776 Subs Hosp L3
--- NOTE | 2021-11-08 13:49 | PCM.RX.CS ---
Consult Type of Consult: New start Suspected Infection: Sepsis Labs: Sodium 138 mmol/L (136-145) 11/08/21 03:10 Potassium 3.6 mmol/L (3.5-5.1) 11/08/21 03:10 Chloride 107 mmol/L (98-107) 11/08/21 03:10 Carbon Dioxide 23.0 mmol/L (21.0-32.0) 11/08/21 03:10 Anion Gap 8 (5-15) 11/08/21 03:10 BUN 51 mg/dL (7-18) H 11/08/21 03:10 Creatinine 1.50 mg/dL (0.55-1.02) H 11/08/21 03:10 Est GFR (MDRD) Af Amer 43 mL/min (>60) L 11/08/21 03:10 Est GFR (MDRD) Non-Af 36 mL/min (>60) L 11/08/21 03:10 BUN/Creatinine Ratio 34.0 RATIO (10-20) H 11/08/21 03:10 Glucose 212 mg/dL (74-106) H 11/08/21 03:10 Microbiology: Microbiology 11/08/21 00:00 Blood Culture (Wb) - Anticubital Left Blood Culture - Preliminary 11/08/21 03:25 Mucosa - Nasopharyngeal Respiratory Panel (PCR) - Final Goal Trough: 15-20 mcg/mL Pharmacy Plan for Drug Dosing: NEW START IV VANCOMYCIN Consulting Physician: Dr. Farfan Indication: Leukocytosis/Sepsis Goal Trough: 15-20 SrCr: 1.50 mg/dL CrCl: 41.34 mL/min Comments: Vancomycin LOAD 2000mg x1 dose to be given @ 1400 11/08/21 Vancomcyin Dose: 500mg Q12H to start @ 0200 11/09/21 Pending Level: Vancomycin trough @ 01311/10/21, prior to the 4th dose Pharmacy Service will continue to monitor and adjust dosing as required. Labs to be done on [date and time ordered]: Vancomycin trough @ 12911/10/21
--- NOTE | 2021-11-08 15:01 | CHAPLAIN ---
Type of Pastoral Visit _x__ Initial Visit ___ Follow-up Visit ___ On-call Visit ___ General Patient Visit ___ Spiritual Assessment ___ Family Conference ___ Bereavement ___ Rapid Response ___ Code Blue ___ Other (describe below) Pastoral Care Referral From _x__ Patient ___ Family ___ Nurse ___ Physician ___ Button Broacher ___ Poultry Scientist ___ Other (describe below) Sacrament/Intervention _x__ Active listening ___ Anointing ___ Methodist _x__ Bereavement ___ Communion ___ Jessica exploration ___ _x__ Life review _x__ Prayer ___ Reconciliation ___ Sacrament of Sick _x__ Supportive presence ___ Wedding ___ Other (describe below) Pastoral Comments patient is welcoming; pt talks of her goal to participate in family reunion on Friday and wants to be well; pt also reveals that her in June of and the coping of this is discussed; supportive presence and listening ear; prayer welcomed
[2021-11-08 16:35] LABS: Bedside Glucose 326 mg/dL (74-106)
[2021-11-08] MEDS: Acetaminophen 325 MG Tablet 650 MG PO (21:00)
[2021-11-08] MEDS: Pramipexole Di-HCl 1 MG Tablet 2 MG PO (21:00)
[2021-11-08] MEDS: oxyCODONE 5 MG Tablet 10 MG PO (21:00)
[2021-11-08] MEDS: Propranolol 10 MG Tablet 20 MG PO (21:02)
[2021-11-08 21:31] LABS: Bedside Glucose 319 mg/dL (74-106)
[2021-11-09] VITALS (7 sets, daily range): BP systolic 97–128; BP diastolic 53–89; PULSE 56–66; RESP 16; TEMP 36.7–37.2; O2SAT 95–97
[2021-11-09] MEDS: Vancomycin IV 500 MG/100 ML BAG 100 MG IV (02:28)
[2021-11-09 05:54] LABS: Absolute Lymphocyte Count 1.33 X10^3/uL (0.83-4.51); Absolute Neutrophil Count 11.5 X10^3/uL (2.0-7.7); Basophil# 0.04 X10^3/uL; Basophil% 0.3 % (0-1); Eosinophil# 0.08 X10^3/uL; Eosinophils% 0.6 % (0-5); Hematocrit 29.7 % (37-47); Hemoglobin 9.5 g/dL (12.0-15.0); Lymphocyte # 1.33 X10^3/ul (0.83-4.51); Lymphocyte % 9.6 % (19-41); Mean Corpuscular Hgb 29.6 pg (27.0-32.0); Mean Corpuscular Volume 92.5 fL (81-99); Mean Platelet Vol. 10.7 fl (6.2-12.0); Monocyte# 0.61 X10^3/uL; Monocyte% 4.4 % (0-10); NRBC Flagged by Analyzer 0 % (0-5); Neutrophil # 11.53 X10^3/uL (2.7-7.7); Neutrophil % 83.4 % (47-70); POSITIVE MORPHOLOGY YES; Platelet Count 171 K/mm3 (150-450); RBC Distribution Width CV 13.6 % (11.6-14.6); RBC Distribution Width SD 46.5 fl (35.1-43.9); Red Blood Count 3.21 M/mm3 (4.2-5.4); White Blood Count 13.8 K/mm3 (4.4-11.0)
[2021-11-09 05:58] LABS: Differential Indicated SCAN CRITERIA MET
[2021-11-09] MEDS: Insulin Lispro 100 UNIT/ML INSULN.PEN SC ×4 (06:11→20:38)
[2021-11-09 06:21] LABS: Atypical Lymphocyte 1+ %
[2021-11-09 06:21] LABS: Bedside Glucose 240 mg/dL (74-106)
[2021-11-09 06:26] LABS: Anion Gap 6 (5-15); BUN 57 mg/dL (7-18); BUN/Creat Ratio 27.9 RATIO (10-20); Chloride 105 mmol/L (98-107); Creatinine, Serum 2.04 mg/dL (0.55-1.02); EST Glomerular Filtration Rate 25 mL/min (>60); Est Glom Filt Rate - Afr Amer 31 mL/min (>60); Estimated Creatinine Clearance 30.39 ml/min; Glucose 223 mg/dL (74-106); Sodium Level 135 mmol/L (136-145)
--- NOTE | 2021-11-09 07:08 | PCM.RX.CS ---
Consult Type of Consult: Follow-up Suspected Infection: Sepsis Labs: Sodium 135 mmol/L (136-145) L 11/09/21 05:45 Potassium 4.0 mmol/L (3.5-5.1) 11/09/21 05:45 Chloride 105 mmol/L (98-107) 11/09/21 05:45 Carbon Dioxide 24.0 mmol/L (21.0-32.0) 11/09/21 05:45 Anion Gap 6 (5-15) 11/09/21 05:45 BUN 57 mg/dL (7-18) H 11/09/21 05:45 Creatinine 2.04 mg/dL (0.55-1.02) H 11/09/21 05:45 Est GFR (MDRD) Af Amer 31 mL/min (>60) L 11/09/21 05:45 Est GFR (MDRD) Non-Af 25 mL/min (>60) L 11/09/21 05:45 BUN/Creatinine Ratio 27.9 RATIO (10-20) H 11/09/21 05:45 Glucose 223 mg/dL (74-106) H 11/09/21 05:45 Microbiology: Microbiology 11/08/21 00:00 Blood Culture (Wb) - Anticubital Left Bacteria Detection (PCR) - Preliminary Streptococcus agalactiae (B) 11/08/21 00:00 Blood Culture (Wb) - Anticubital Left Blood Culture - Preliminary 11/08/21 03:25 Mucosa - Nasopharyngeal Respiratory Panel (PCR) - Final Goal Trough: 15-20 mcg/mL Pharmacy Plan for Drug Dosing: VANCOMYCIN MONITORING Current Vancomycin Dose: 500MG Q12H Number of Doses Received: 2 (including LOAD) Renal Function: sCr 2.04 Renal Function Trend: worsening Lab/Micro: blood & urine cx pending Vancomycin Plan/Comments: Based on sudden increase in sCr, proactively adjusted Vancomycin dosing regimen to 1250mg Q24H, [place] [address]/10/21 (~ 24 hours since last dose). Pt also on Zosyn empirically and furosemide PO daily, which may be contributing to acute changes in renal function. Pending Level: Vancomycin trough @ 0230 11/11/21 Pharmacy Service will continue to monitor and adjust dosing as required. Labs to be done on [date and time ordered]: Vancomycin trough @ 0230 11/11/21
[2021-11-09] MEDS: Ferrous Sulfate 325 MG Tablet PO (07:34)
[2021-11-09] MEDS: Gabapentin 100 MG Capsule 200 MG PO ×3 (07:34→17:08)
[2021-11-09] MEDS: Nystatin Powder 15gm Bottle 1 APPLIC TOPICAL ×2 (09:50→20:39)
[2021-11-09] MEDS: Ammonium Lactate 225 gm Bottle 1 APPLIC TOPICAL ×2 (09:56→20:29)
[2021-11-09] MEDS: oxyCODONE 5 MG Tablet 10 MG PO ×2 (10:13→20:29)
[2021-11-09] MEDS: Enoxaparin 40 MG/0.4 ML Syringe SC (10:14)
[2021-11-09] MEDS: Propranolol 10 MG Tablet 20 MG PO ×2 (10:15→20:30)
[2021-11-09 11:16] LABS: Bedside Glucose 288 mg/dL (74-106)
--- NOTE | 2021-11-09 12:03 | CASEMGMT ---
JOSE CASAS Assessment: Face to Face with pt for initial transition planning/care coordination assessment. JOSE CASAS introduced self and role at [facility], pt voices understanding and consents to assessment. Pt is A/O x4 and answers all questions appropriately at this time. Pt sitting up in chair in no distress. Care providers, pharmacy, and demographics verified/updated. Admitting Dx: acute viral syndrome PCP:Pat Specialists:Javier cardio [facility]erred Pharmacy: [facility] Insurance: [facility] Prescription Benefit: yes LW/HPOA: Pt states she has a LW/DPOA. States her is her DPOA but he has passed in June. She states she does not think she had an alternate. She states she needs to get this updated. LNOK: Juliann Troy, dtr; Cesar Garcia, son Living Arrangements: Pt lives in a two story house [facility] 4 steps to enter with a rail. Pt states her son lives upstairs and she lives on main level. Pt reports she is I in ADL's and denies concerns at home. Transportation: Pt reports she does not drive, states her family transports her to medical appts. DME/HHC/SNF: Pt has a record clerk, cane, toilet riser, shower chair and FWW which she uses. Pt states she has had [facility] in the past and has been to the [facility]. Pt states no concerns with going home at time of dc. She denies the need for any therapy at home. Pt states no further concerns/needs. CM to follow. Advised pt to ask CM if any further question/concerns/needs arise, voices understanding. Pt denies need to speak to [employer] regarding the passing of her . She states she is coping well. Pt Goal: Home Plan: Home
--- NOTE | 2021-11-09 12:10 | PN.HOSP_ITS ---
Subjective Subjective Patient seen and examined. She felt a bit better today and had no active complaints. She remained hemodynamically stable. Review of systems otherwise negative. Objective Data Objective Data Vital Signs: Vital Signs Temp Pulse Resp BP Pulse Ox 98.9 F 56 L 16 99/71 95 11/09/21 07:36 11/09/21 07:36 11/09/21 07:36 11/09/21 07:36 11/09/21 09:00 Oxygen Flow Rate (L/min) 2 Oxygen Delivery Method Room Air Weight: 177 lb 7.554 oz Body Mass Index (BMI) 41.2 Intake & Output: Intake and Output for Last 24 Hours 11/07/21 11/08/21 11/09/21 23:59 23:59 23:59 Intake Total 3690 / 3690 450 / 450 Output Total 0 / 0 Balance 3690 / 3690 450 / 450 Lab / Micro Data Result Diagrams: 11/09/21 05:45 11/09/21 05:45 Labs: Laboratory Results - last 24 hr 11/08/21 16:28: POC Glucose 326 H 11/08/21 21:06: POC Glucose 319 H 11/09/21 05:45: WBC 13.8 H, RBC 3.21 L, Hgb 9.5 L, Hct 29.7 L, MCV 92.5, MCH 29.6, MCHC 32.0, RDW Std Deviation 46.5 H, RDW Coeff of Fady 13.6, Plt Count 171, MPV 10.7, Immature Gran % (Auto) 1.700 H, Neut % (Auto) 83.4 H, Lymph % (Auto) 9.6 L, [place] % (Auto) 4.4, Eos % (Auto) 0.6, Baso % (Auto) 0.3, Absolute Neuts (auto) 11.5 H, Absolute Lymphs (auto) 1.33, Nucleated RBC % 0, Atypical Lymphocytes 1+ 11/09/21 05:45: Sodium 135 L, Potassium 4.0, Chloride 105, Carbon Dioxide 24.0, Anion Gap 6, BUN 57 H, Creatinine 2.04 H, Estim Creat Clear Calc 30.39, Est GFR (MDRD) Af Amer 31 L, Est GFR (MDRD) Non-Af 25 L, BUN/Creatinine Ratio 27.9 H, Glucose 223 H, Calcium 7.0 L 11/09/21 06:10: POC Glucose 240 H 11/09/21 11:11: POC Glucose 288 H Micro: Microbiology 11/08/21 00:00 Blood Culture (Wb) - Anticubital Left Bacteria Detection (PCR) - Final Streptococcus agalactiae (B) 11/08/21 00:00 Blood Culture (Wb) - Anticubital Left Blood Culture - Preliminary Streptococcus group B 11/08/21 03:25 Mucosa - Nasopharyngeal Respiratory Panel (PCR) - Final Radiography Diagnostic Testing: Radiology Impression Chest X-Ray 11/08/21 09:10 IMPRESSION: Mild degree of residual vascular congestion and CHF. Electronically Signed: Edward Stoll MD at 13:33 EDT , Rhythm Strip Rhythm Strip: Sinus Rhythm Rate: 84 Ectopy: None Physical Exam Const alert, oriented x3 and no apparent distress Exam Limitations: no limitations HEENT head/scalp atraumatic and moist oral mucous membranes Head and Scalp: normocephalic Eyes PERRL, EOMs intact bilaterally and conjunctivae normal Neck no lymphadenopathy, supple and no JVD Resp normal respiratory effort, no retractions, no use of accessory muscles and clear to auscultation bilaterally Cardio regular rate, regular rhythm, S1 normal heart sound, S2 normal heart sound and no murmurs GI normal to inspection, nondistended, normoactive bowel sounds, soft to palpation, non-tender, non-distended and hepatosplenomegaly Extremity Extremity Narrative: mild erythema over left thumb has improved markedly Peripheral Pulses: Yes pulses 2+ throughout Skin Skin Narrative: as under extremities Neuro oriented x3, CN's II-XII intact bilaterally and moves all extremities Sensorium / Orientation: awake and alert Psych affect normal Assessment & Plan Assessment/Plan (1) Leukocytosis: QUALIFIERS: Leukocytosis type: unspecified Qualified Code(s): D72.829 - Elevated white blood cell count, unspecified (2) Fever: QUALIFIERS: Fever type: unspecified Qualified Code(s): R50.9 - Fever, unspecified PLAN: #FEver and bacteremia * blood cultures now growing Strep agalactiae * on IV zosyn * ID consulted. Repeat blood cultures ordered. * * * #Bilateral lower extremity venous stasis: Stable. No evidence of infection #CKD stage III: Cr is 1.5, which is around his baseline. Will monitor. #Type 2 diabetes mellitus with neuropathy: On insulin Lantus. Insulin sliding scale. Accu-Cheks AC at bedtime. On gabapentin. #Hyperlipidemia: On statin #Anxiety and depression: not on any meds. Will monitor #Rheumatoid arthritis: Currently not on any medication. Follow-up with PCP on outpatient basis referral to rheumatology as needed #Chronic iron deficiency anemia: Stable. Hemoglobin is around 10. DVT prophylaxis: lovenox Charges/Coding Visit Charges Inpatient E&M: 07773 Subs Hosp L3
--- NOTE | 2021-11-09 12:34 | CON.PCM.ID_ITS ---
Assessment & Plan Assessment/Plan (1) Fever: QUALIFIERS: Fever type: unspecified Qualified Code(s): R50.9 - Fever, unspecified PLAN: Clinically improving on parenteral antibiotic therapy. Patient has group B beta-hemolytic strep bacteremia most likely related to the skin and soft tissue infection, will treat with ceftriaxone 2 g IV daily. Patient states that she has a large family gathering this weekend on Friday. I did write a prescription for amoxicillin 500 mg 3 times a day for 10 more days upon discharge, I suspect the patient could go home tomorrow if she continues to improve. HPI Consult Data Date of Consult: 11/09/21 HPI Narrative HPI Narrative: CASANDRA JONES, is a 76 F who presents with acute onset of fever and altered mental status with concerns of severe sepsis. Patient states that she got bit by an insect in her left hand last week and then developed i ncreased erythema and swelling of the left hand over the past few days. Patient has multiple comorbidities including diabetes mellitus, chronic erythema of the right lower leg, rheumatoid arthritis. Interestingly her admission blood cultures are growing group B beta-hemolytic Streptococcus. Patient currently on vancomycin plus Zosyn. Patient states of feeling better this morning. No gastrointestinal distress at this time. No cardiopulmonary symptoms. Overall hemodynamically stable. No further fever. [facility] Medical History (Updated 11/08/21 @ 02:55 by Rima Finney) Age related osteoporosis Anemia Anxiety Arthritis Cardiac murmur Carpal tunnel syndrome Cellulitis Depression Dermatitis Diabetes Edema of both lower extremities Femoral neck fracture Fracture of femur, subcapital, right, closed Hip fracture requiring operative repair History of non-ST elevation myocardial infarction (NSTEMI) (03/21/21) Open wound of left lower extremity Osteoarthritis Rheumatoid arthritis Rheumatoid arthritis Traumatic ulcer of left lower leg Type 2 diabetes mellitus without complications Ulcer of right lower extremity with fat layer exposed Venous stasis dermatitis of both lower extremities Home Medications ferrous sulfate 325 mg PO DAILY 08/14/17 [History Last Taken 03/20/21] alendronate 70 mg tablet 70 mg PO MO 08/10/20 [History Last Taken 2 Weeks Ago ~03/07/21] gabapentin 100 mg capsule 200 mg PO Q6H cap 08/10/20 [History Last Taken 03/21/21] furosemide 40 mg tablet 40 mg PO DAILY tablet 11/09/20 [History Last Taken 03/21/21] Humalog Mix 50-50 KwikPen U-100 Insulin 100 unit/mL subcutaneous pen 12 unit SUBCUT BID #15 ml NS 03/27/21 [Rx Last Taken Unknown] blood sugar diagnostic #100 ea 03/27/21 [Rx Last Taken Unknown] pen needle, diabetic 32 gauge x #100 ea 03/27/21 [Rx Last Taken Unknown] oxycodone 5 mg tablet 10 mg PO Q6H PRN PRN tab 05/11/21 [History Last Taken Unknown] pramipexole 1 mg tablet 2 mg PO QHS 05/11/21 [History Last Taken Unknown] propranolol 20 mg PO BID 06/29/21 [History Last Taken Unknown] pomxjbw-ommekbnct-amxr 1 tab PO DAILY 11/08/21 [History Last Taken Unknown] cholecalciferol (vitamin D3) [Vitamin D3] 25 mcg PO DAILY 11/08/21 [History Last Taken Unknown] potassium 95 mg PO DAILY 11/08/21 [History Last Taken Unknown] vitamin W36-qhpqklwkm factor 1 tab PO/SL DAILY 11/08/21 [History Last Taken Unknown] Allergy/AdvReac Type Severity Reaction Status Date / Time No Known Allergies Allergy Verified 09/27/21 15:30 Family History Mother Diabetes Father Diabetes Surgical History History of back surgery History of gastric bypass Social History (Updated 11/08/21 @ 02:[address] Hetal Garrido MD) household members: other details: Lives with her son. Smoking Status: Never smoker alcohol intake: never substance use type: does not use Lab / Micro Data Result Diagrams: 11/09/21 05:45 11/09/21 05:45 Labs: Laboratory Results - last 24 hr 11/08/21 16:28: POC Glucose 326 H 11/08/21 21:06: POC Glucose 319 H 11/09/21 05:45: WBC 13.8 H, RBC 3.21 L, Hgb 9.5 L, Hct 29.7 L, MCV 92.5, MCH 29.6, MCHC 32.0, RDW Std Deviation 46.5 H, RDW Coeff of Fady 13.6, Plt Count 171, MPV 10.7, Immature Gran % (Auto) 1.700 H, Neut % (Auto) 83.4 H, Lymph % (Auto) 9.6 L, [place] % (Auto) 4.4, Eos % (Auto) 0.6, Baso % (Auto) 0.3, Absolute Neuts (auto) 11.5 H, Absolute Lymphs (auto) 1.33, Nucleated RBC % 0, Atypical Lymphocytes 1+ 11/09/21 05:45: Sodium 135 L, Potassium 4.0, Chloride 105, Carbon Dioxide 24.0, Anion Gap 6, BUN 57 H, Creatinine 2.04 H, Estim Creat Clear Calc 30.39, Est GFR (MDRD) Af Amer 31 L, Est GFR (MDRD) Non-Af 25 L, BUN/Creatinine Ratio 27.9 H, Glucose 223 H, Calcium 7.0 L 11/09/21 06:10: POC Glucose 240 H 11/09/21 11:11: POC Glucose 288 H Micro: Microbiology 11/08/21 00:00 Blood Culture (Wb) - Anticubital Left Bacteria Detection (P CR) - Final Streptococcus agalactiae (B) 11/08/21 00:00 Blood Culture (Wb) - Anticubital Left Blood Culture - Preliminary Streptococcus group B Rhythm Strip Rhythm Strip: Sinus Rhythm Rate: 84 Ectopy: None Radiology Impression Chest X-Ray 11/08/21 09:10 IMPRESSION: Mild degree of residual vascular congestion and CHF. Electronically Signed: Edward Stoll MD at 13:33 EDT ,
[2021-11-09 16:26] LABS: Bedside Glucose 281 mg/dL (74-106)
[2021-11-09] MEDS: Pramipexole Di-HCl 1 MG Tablet 2 MG PO (20:31)
[2021-11-09 20:46] LABS: Bedside Glucose 322 mg/dL (74-106)
[2021-11-10 02:46] VITALS: BP 129/56; PULSE 68; RESP 16; TEMP 36.9; O2SAT 95
[2021-11-10] MEDS: Insulin Lispro 100 UNIT/ML INSULN.PEN SC ×2 (06:05→12:24)
[2021-11-10 06:45] LABS: Bedside Glucose 189 mg/dL (74-106)
[2021-11-10 07:09] LABS: Absolute Lymphocyte Count 1.16 X10^3/uL (0.83-4.51); Absolute Neutrophil Count 6.5 X10^3/uL (2.0-7.7); Basophil# 0.02 X10^3/uL; Basophil% 0.2 % (0-1); Eosinophil# 0.31 X10^3/uL; Eosinophils% 3.7 % (0-5); Hematocrit 30.1 % (37-47); Hemoglobin 9.5 g/dL (12.0-15.0); Lymphocyte # 1.16 X10^3/ul (0.83-4.51); Lymphocyte % 13.7 % (19-41); Mean Corp Hgb Conc 31.6 g/dL (32-36); Mean Corpuscular Hgb 29.3 pg (27.0-32.0); Mean Corpuscular Volume 92.9 fL (81-99); Monocyte# 0.46 X10^3/uL; Monocyte% 5.4 % (0-10); NRBC Flagged by Analyzer 0 % (0-5); Neutrophil # 6.45 X10^3/uL (2.7-7.7); Neutrophil % 76.4 % (47-70); Platelet Count 177 K/mm3 (150-450); RBC Distribution Width CV 13.5 % (11.6-14.6); Red Blood Count 3.24 M/mm3 (4.2-5.4); White Blood Count 8.5 K/mm3 (4.4-11.0)
[2021-11-10 07:27] VITALS: O2SAT 95
[2021-11-10 07:31] LABS: Anion Gap 4 (5-15); BUN 50 mg/dL (7-18); BUN/Creat Ratio 30.1 RATIO (10-20); Chloride 109 mmol/L (98-107); Creatinine, Serum 1.66 mg/dL (0.55-1.02); EST Glomerular Filtration Rate 32 mL/min (>60); Est Glom Filt Rate - Afr Amer 39 mL/min (>60); Estimated Creatinine Clearance 30.88 ml/min; Glucose 187 mg/dL (74-106); Potassium 4.1 mmol/L (3.5-5.1); Sodium Level 136 mmol/L (136-145)
[2021-11-10 09:37] VITALS: BP 166/56; PULSE 60; RESP 20; TEMP 37.3; O2SAT 94
[2021-11-10] MEDS: Ferrous Sulfate 325 MG Tablet PO (09:46)
[2021-11-10] MEDS: Gabapentin 100 MG Capsule 200 MG PO ×2 (09:47→12:15)
[2021-11-10] MEDS: Furosemide 40 MG Tablet PO (09:47)
[2021-11-10] MEDS: Ammonium Lactate 225 gm Bottle 1 APPLIC TOPICAL (09:47)
[2021-11-10] MEDS: Enoxaparin 40 MG/0.4 ML Syringe SC (09:48)
[2021-11-10] MEDS: Nystatin Powder 15gm Bottle 1 APPLIC TOPICAL (09:48)
[2021-11-10] MEDS: oxyCODONE 5 MG Tablet 10 MG PO (09:55)
[2021-11-10 11:44] VITALS: BP 167/51; PULSE 55
[2021-11-10] MEDS: Propranolol 10 MG Tablet 20 MG PO (11:46)
--- NOTE | 2021-11-10 11:56 | PCM.DC ---
Discharge Instructions Diet Discharge Diet: Low fat / Low cholesterol Activity Discharge Activity: Return to Normal Activity Weight Bearing Status: Weight bearing as tolerated Dressing / Incision Call your doctor if you observe: Fever of 101 or Higher, Shortness of breath, Dizziness, Swelling in the ankles, Chest pain and Increased palpitations (irregular heartbeat) Follow Up Care Test Results: Test results from this visit will be discussed in further detail at your follow-up appointment, if applicable. Discharge Plan Admission Admit Date/Time: 11/08/21 15:07 Primary Reason for Your Visit: bacteremia Attending Provider: Juju Farfan Primary Care Provider: Leonard Stewart Consulting Providers: Ziggy Parr Instructions Patient Instructions: ED Bacteremia, Suspected (Adult) Discharge Orders/Prescriptions Prescriptions: New amoxicillin 500 mg capsule 500 mg PO Q8H Qty: 30 RF: 0 Continued gabapentin 100 mg capsule 200 mg PO Q6H RF: 0 alendronate 70 mg tablet 70 mg PO MO RF: 0 furosemide 40 mg tablet 40 mg PO DAILY RF: 0 Humalog Mix 50-50 KwikPen 100 unit/mL (50-50) insulin pen 12 unit subcut BID Qty: 15 RF: 5 (DME) pen needle, diabetic [BD Ultra-Fine Tracee Pen Needle] 32 gauge x 5/32 needle See Rx Instructions .ROUTE .MEDSUPPLY Qty: 100 RF: 5 oxycodone 5 mg tablet 10 mg PO Q6H PRN PRN (Reason: Pain) RF: 0 ferrous sulfate 325 MG tablet 325 mg PO DAILY RF: 0 pramipexole 1 mg tablet 2 mg PO QHS RF: 0 propranolol 40 mg tablet 20 mg PO BID RF: 0 potassium 95 mg Tablet 95 mg PO DAILY RF: 0 xizhsmg-hyipmuyid-wzem Tablet 1 tab PO DAILY RF: 0 cholecalciferol (vitamin D3) [Vitamin D3] 25 mcg (1,000 unit) Capsule 25 mcg PO DAILY RF: 0 vitamin J40-tfxktrysf factor 1 tab PO/SL DAILY RF: 0 (DME) OneTouch Verio test strips Strip See Rx Instructions .ROUTE .MEDSUPPLY Qty: 100 RF: 3 Referrals / Follow Up: Leonard Stewart DO [Primary Care Provider] - Within 2 Weeks Disposition Disposition (needs filled in before D/C Order can be placed): Home, Self Care
--- NOTE | 2021-11-10 12:00 | PCM.DC.SUM ---
Providers Date of Admission: 11/08/21 Primary Care Physician: Dr. Leonard Stewart DO Consultations 11/09/21 07:35 Consult: Infectious Disease Routine Consulting Provider: Ziggy Parr Reason for Consult: strep bacteremia EMERGENT Consult: No MD Notified: Yes Date Notified: 11/09/21 Time Notified: 08:59 Method of Notification: Answering Service Reason For Visit: ACUTE VIRAL SYNDROME Diagnosis Discharge Diagnosis (1) Fever: Status: Acute Code(s): R50.9 - Fever, unspecified Qualifiers: Fever type: unspecified Qualified Code(s): R50.9 - Fever, unspecified Medications at Discharge Home Medications ferrous sulfate 325 mg PO DAILY 08/14/17 alendronate 70 mg tablet 70 mg PO MO 08/10/20 gabapentin 100 mg capsule 200 mg PO Q6H cap 08/10/20 furosemide 40 mg tablet 40 mg PO DAILY tablet 11/09/20 Humalog Mix 50-50 KwikPen U-100 Insulin 100 unit/mL subcutaneous pen 12 unit SUBCUT BID #15 ml NS 03/27/21 blood sugar diagnostic #100 ea 03/27/21 pen needle, diabetic 32 gauge x /32 #100 ea 03/27/21 oxycodone 5 mg tablet 10 mg PO Q6H PRN PRN tab 05/11/21 pramipexole 1 mg tablet 2 mg PO QHS 05/11/21 propranolol 20 mg PO BID 06/29/21 loikwjn-qaobtrdxc-ywth 1 tab PO DAILY 11/08/21 cholecalciferol (vitamin D3) [Vitamin D3] 25 mcg PO DAILY 11/08/21 potassium 95 mg PO DAILY 11/08/21 vitamin F51-subgsfnsk factor 1 tab PO/SL DAILY 11/08/21 amoxicillin 500 mg PO Q8H #30 cap 11/10/21 Hospital Course Operations None Procedures None Summary of Care Provided Minutes Spent on Discharge: 45 Hospital Course: Patient is a 76 y/o F with a PMH as outlined who was admitted via the ED on 11/08/2021 with a complaint of fatigue, malaise and chills which started on the day of presentation. she had one associated episode of loose stool with associated nausea anad vomiting. she was found to be febrile in the ED, with elevated wbc of 13.1. Creatinine was 1.52 and lactic acid was 1. Urinalysis showed no evidence of infection, and CXR showed no acue cardiopulmonary findings. She was initially admitted and managed for suspected acute viral illness. She was given a dose of IV zosyn in the ED initially. Patient however had an elevated procalcitonin and her elevated white cell count was mainly neutrophilic today was thought that she likely had a bacterial infection the source of which was unknown. Patient was initiated on IV Zosyn. She had blood cultures which came back positive for strep pneumonia. ID was consulted and antibiotics were switched to IV ceftriaxone. Patient symptoms subsequently improved and she felt much better. ID reviewed patient and patient requested to go home on 11/10/2021 because she had a big family function on Friday which she did not want to miss. Patient was therefore discharged home on p.o. amoxicillin 500 mg every 8 hours for total of 10 days. She is to follow-up with her primary care doctor in 1 to 2 weeks. Patient was seen and examined prior to discharge. She felt much better and had no active complaints. Review of systems otherwise negative. Labs and vitals reviewed. Home medication reviewed and reconciled. Physical Exam Const alert, oriented x3 and no apparent distress General Appearance: cooperative, comfortable and well kempt Exam Limitations: no limitations HEENT normocephalic, head/scalp atraumatic, hearing grossly normal bilaterally and moist oral mucous membranes Eyes PERRL, EOMs intact bilaterally and conjunctivae normal Neck no lymphadenopathy, supple and no JVD Resp normal respiratory effort, no retractions, no use of accessory muscles and clear to auscultation bilaterally Cardio regular rate, regular rhythm, S1 normal heart sound, S2 normal heart sound and no murmurs GI normal to inspection, nondistended, normoactive bowel sounds, soft to palpation, non-tender, non-distended and hepatosplenomegaly Extremity Extremity Narrative: mild erythema over left thumb has improved markedly Skin Skin Narrative: as under extremities Neuro oriented x3, CN's II-XII intact bilaterally and moves all extremities Sensorium / Orientation: awake and alert Psych affect normal Weight / BMI Weight Weight: 147 lb 4.301 oz Body Mass Index (BMI) 41.2 ABG / Lab / Microbiology Data Result Diagrams: 11/10/21 06:37 11/10/21 06:37 Laboratory: Laboratory Results - last 24 hr 11/09/21 16:16: POC Glucose 281 H 11/09/21 20:37: POC Glucose 322 H 11/10/21 06:04: POC Glucose 189 H 11/10/21 06:37: WBC 8.5, RBC 3.24 L, Hgb 9.5 L, Hct 30.1 L, MCV 92.9, MCH 29.3, MCHC 31.6 L, RDW Std Deviation 46.0 H, RDW Coeff of Fady 13.5, Plt Count 177, MPV 11.0, Immature Gran % (Auto) 0.600, Neut % (Auto) 76.4 H, Lymph % (Auto) 13.7 L, [place] % (Auto) 5.4, Eos % (Auto) 3.7, Baso % (Auto) 0.2, Absolute Neuts (auto) 6.5, Absolute Lymphs (auto) 1.16, Nucleated RBC % 0 11/10/21 06:37: Sodium 136, Potassium 4.1, Chloride 109 H, Carbon Dioxide 23.0, Anion Gap 4 L, BUN 50 H, Creatinine 1.66 H, Estim Creat Clear Calc 30.88, Est GFR (MDRD) Af Amer 39 L, Est GFR (MDRD) Non-Af 32 L, BUN/Creatinine Ratio 30.1 H, Glucose 187 H, Calcium 8.0 L Microbiology: Microbiology 11/08/21 00:40 Urine Catheter - Catheter Urine Culture - Preliminary Staphylococcus species 11/08/21 00:00 Blood Culture (Wb) - Anticubital Left Bacteria Detection (PCR) - Final Streptococcus agalactiae (B) 11/08/21 00:00 Blood Culture (Wb) - Anticubital Left Blood Culture - Final Streptococcus agalactiae (B) 11/08/21 03:25 Mucosa - Nasopharyngeal Respiratory Panel (PCR) - Final D/C Instructions Discharge Diet: Low fat / Low cholesterol Weight Bearing Status: Weight bearing as tolerated Call your doctor if you observe: Fever of 101 or Higher, Shortness of breath, Dizziness, Swelling in the ankles, Chest pain and Increased palpitations (irregular heartbeat) Meaningful Use Info Meaningful Use Diagnoses (Choose all that apply): None applicable Discharge Plan Admission Admit Date/Time: 11/08/21 15:07 Primary Reason for Your Visit: bacteremia Attending Provider: Juju Farfan Primary Care Provider: Leonard Stewart Consulting Providers: Ziggy Parr Instructions Patient Instructions: ED Bacteremia, Suspected (Adult) Discharge Orders/Prescriptions Prescriptions: New amoxicillin 500 mg capsule 500 mg PO Q8H Qty: 30 RF: 0 Continued gabapentin 100 mg capsule 200 mg PO Q6H RF: 0 alendronate 70 mg tablet 70 mg PO MO RF: 0 furosemide 40 mg tablet 40 mg PO DAILY RF: 0 Humalog Mix 50-50 KwikPen 100 unit/mL (50-50) insulin pen 12 unit subcut BID Qty: 15 RF: 5 (DME) pen needle, diabetic [BD Ultra-Fine Tracee Pen Needle] 32 gauge x 5/32 needle See Rx Instructions .ROUTE .MEDSUPPLY Qty: 100 RF: 5 oxycodone 5 mg tablet 10 mg PO Q6H PRN PRN (Reason: Pain) RF: 0 ferrous sulfate 325 MG tablet 325 mg PO DAILY RF: 0 pramipexole 1 mg tablet 2 mg PO QHS RF: 0 propranolol 40 mg tablet 20 mg PO BID RF: 0 potassium 95 mg Tablet 95 mg PO DAILY RF: 0 fixciph-urrkqysai-gjzs Tablet 1 tab PO DAILY RF: 0 cholecalciferol (vitamin D3) [Vitamin D3] 25 mcg (1,000 unit) Capsule 25 mcg PO DAILY RF: 0 vitamin T36-kinumfdlk factor 1 tab PO/SL DAILY RF: 0 (DME) OneTouch Verio test strips Strip See Rx Instructions .ROUTE .MEDSUPPLY Qty: 100 RF: 3 Referrals / Follow Up: Leonard Stewart DO [Primary Care Provider] - Within 2 Weeks Disposition Disposition (needs filled in before D/C Order can be placed): Home, Self Care Charges/Coding Visit Charges Inpatient E&M: 44882 Disch Hosp
[2021-11-10 12:30] LABS: Bedside Glucose 264 mg/dL (74-106)
== END 2021-11-10 12:35 | disposition home or self-care (01) | DRG 872 ==
LOC: ED 11-08 01:46 → MS3 11-08 05:39
PROVIDERS: Admitting Provider Family Medicine; Emergency Provider Emergency Medicine; PCP Family Medicine; Visit Provider Student in an Organized Health Care Education/Training Program
DX: R78.81 Bacteremia (principal); Z68.41 Body mass index [BMI] 40.0-44.9, adult; E11.22 Type 2 diabetes mellitus with diabetic chronic kidney disease; L08.9 Local infection of the skin and subcutaneous tissue, unspecified; D64.9 Anemia, unspecified; D50.9 Iron deficiency anemia, unspecified; B95.1 Streptococcus, group B, as the cause of diseases classified elsewhere; E11.40 Type 2 diabetes mellitus with diabetic neuropathy, unspecified; Z79.4 Long term (current) use of insulin; M06.9 Rheumatoid arthritis, unspecified; N18.32 Chronic kidney disease, stage 3b; F41.9 Anxiety disorder, unspecified; I25.2 Old myocardial infarction; I44.0 Atrioventricular block, first degree; G25.81 Restless legs syndrome; I87.8 Other specified disorders of veins; S60.562A Insect bite (nonvenomous) of left hand, initial encounter; M81.0 Age-related osteoporosis without current pathological fracture; E66.9 Obesity, unspecified; F32.A Depression, unspecified; Z79.82 Long term (current) use of aspirin; Z79.899 Other long term (current) drug therapy; R09.02 Hypoxemia; Z98.84 Bariatric surgery status; W57.XXXA Bitten or stung by nonvenomous insect and other nonvenomous arthropods, initial encounter; Z86.16 Personal history of COVID-19
CPT/HCPCS: 36415; 71045; 80048; 80053; 81001; 82962; 83605; 84145; 85025; 85610; 85730; 87040; 87077; 87086; 87088; 87149; 87186; 87633; 93005; 97110; 97162; 97166; 97530; 97535; 99251; 99285; J7030; J7040; J7050; P9612; A4216; G0463; J0696; J2405

== ENCOUNTER → 2021-12-17 | Outpatient (CLI) | payer MEDICARE, SELFPAY ==
[2021-12-17 15:12] LABS: Mucous, Urine 0 SEEN /hpf (<or=2+)
[2021-12-17 16:43] LABS: Color, Urine Yellow (Yellow); Glucose, Dipstick Normal (Normal); Ketone-Dipstick Negative (Negative); Leukocyte Esterase-Dipstick 500 /ul (Negative); Nitrite-Dipstick Negative (Negative); Occult Blood-Urine 25 /ul (Negative); Protein-Dipstick 100 mg/dl (Negative); Specific Gravity, Urine 1.015 (1.002-1.030); Urine Bilirubin Dipstick Negative (Negative); Urine Clarity Clear (Clear); Urine Urobilinogen Normal (Normal)
[2021-12-17 17:08] LABS: Vitamin B12 1435 pg/mL (211-911); Vitamin D,25 Hydroxy 16.5 ng/mL
[2021-12-17 17:13] LABS: ALB/GLOB Ratio 0.9 RATIO (0.9-2.4); AST(SGOT) 14 U/L (15-37); Alanine Aminotransfer ALT/SGPT 21 U/L (13-56); Albumin, Serum 3.4 g/dL (3.2-5.0); Alkaline Phosphatase 116 U/L (45-117); Anion Gap 8 (5-15); BUN 31 mg/dL (7-18); BUN/Creat Ratio 24.2 RATIO (10-20); Calcium,Total 8.9 mg/dL (8.5-10.1); Chloride 105 mmol/L (98-107); Cholesterol 186 mg/dL (200); Creatinine, Serum 1.28 mg/dL (0.55-1.02); EST Glomerular Filtration Rate 43 mL/min (>60); Est Glom Filt Rate - Afr Amer 52 mL/min (>60); Globulin 3.7 g/dL (2.2-4.2); Glucose 199 mg/dL (74-106); High Density Lipoprotein 89 mg/dL; Potassium 5.6 mmol/L (3.5-5.1); Protein, Total 7.1 g/dL (6.4-8.2); Sodium Level 137 mmol/L (136-145); Thyroid Stim Hormone (TSH) 2.31 uIU/mL (0.358-3.74); Triglycerides 51 mg/dL; Very Low Density Lipoprotein 10 mg/dL (5-40)
[2021-12-17 17:25] LABS: Red Blood Cells-Urine 0-5 SEEN /hpf (0-5); White Blood Cells 10-25 SEEN /hpf (0-5)
[2021-12-17 17:26] LABS: Bacteria RARE /hpf (None Seen); Squamous Epithelial Cells - UA 0-5 SEEN /hpf (5-10)
[2021-12-17 18:10] LABS: Microalbumin:Creatinine Ratio 1564.1 mg/g CRE (<30 mg/g CRE)
== END | disposition home or self-care (01) ==
LOC: BIMLAB 14:58
PROVIDERS: PCP Family Medicine; Referring Provider Nurse Practitioner Family; Visit Provider Nurse Practitioner Family
DX: E11.22 Type 2 diabetes mellitus with diabetic chronic kidney disease (principal); E11.622 Type 2 diabetes mellitus with other skin ulcer; L98.499 Non-pressure chronic ulcer of skin of other sites with unspecified severity; E11.65 Type 2 diabetes mellitus with hyperglycemia; E11.42 Type 2 diabetes mellitus with diabetic polyneuropathy; Z79.4 Long term (current) use of insulin; N18.32 Chronic kidney disease, stage 3b; R39.15 Urgency of urination
CPT/HCPCS: 36415; 80053; 80061; 81001; 82043; 82306; 82570; 82607; 84443; 87077; 87086; 87088; 87186

== ENCOUNTER → 2021-12-28 | Outpatient (CLI) | payer MEDICARE, SELFPAY ==
[2021-12-28 15:45] LABS: Anion Gap 6 (5-15); BUN 39 mg/dL (7-18); BUN/Creat Ratio 25.5 RATIO (10-20); Calcium,Total 9.2 mg/dL (8.5-10.1); Chloride 108 mmol/L (98-107); Creatinine, Serum 1.53 mg/dL (0.55-1.02); EST Glomerular Filtration Rate 35 mL/min (>60); Est Glom Filt Rate - Afr Amer 42 mL/min (>60); Glucose 427 mg/dL (74-106); Sodium Level 136 mmol/L (136-145)
== END | disposition home or self-care (01) ==
LOC: BIMLAB 14:23
PROVIDERS: PCP Family Medicine; Referring Provider Nurse Practitioner Family; Visit Provider Nurse Practitioner Family
DX: N18.32 Chronic kidney disease, stage 3b (principal)
CPT/HCPCS: 36415; 80048

== ENCOUNTER → 2022-01-14 | Outpatient (CLI) | payer MEDICARE, SELFPAY | END | disposition home or self-care (01) | LOC: LABSPEC 17:44 | PROVIDERS: PCP Family Medicine; Visit Provider Family Medicine | DX: R30.0 Dysuria (principal) | CPT/HCPCS: 87077; 87086; 87088; 87186 ==

== ENCOUNTER → 2022-01-16 | Outpatient (CLI) | payer MEDICARE, SELFPAY ==
[2022-01-16 12:58] LABS: ALB/GLOB Ratio 0.7 RATIO (0.9-2.4); AST(SGOT) 8 U/L (15-37); Alanine Aminotransfer ALT/SGPT 16 U/L (13-56); Albumin, Serum 2.7 g/dL (3.2-5.0); Alkaline Phosphatase 94 U/L (45-117); Anion Gap 8 (5-15); BUN 38 mg/dL (7-18); Calcium,Total 8.3 mg/dL (8.5-10.1); Chloride 100 mmol/L (98-107); Creatinine, Serum 1.73 mg/dL (0.55-1.02); EST Glomerular Filtration Rate 30 mL/min (>60); Est Glom Filt Rate - Afr Amer 37 mL/min (>60); Globulin 3.9 g/dL (2.2-4.2); Glucose 364 mg/dL (74-106); Potassium 5.2 mmol/L (3.5-5.1); Protein, Total 6.6 g/dL (6.4-8.2); Sodium Level 129 mmol/L (136-145)
== END | disposition home or self-care (01) ==
LOC: BIMLAB 10:47
PROVIDERS: PCP Family Medicine; Referring Provider Nurse Practitioner Family; Visit Provider Nurse Practitioner Family
DX: N18.32 Chronic kidney disease, stage 3b (principal)
CPT/HCPCS: 36415; 80053

== ENCOUNTER → 2022-03-20 | Outpatient (CLI) | payer MEDICARE, SELFPAY ==
[2022-03-20 15:45] LABS: Anion Gap 5 (5-15); BUN 25 mg/dL (7-18); BUN/Creat Ratio 20.2 RATIO (10-20); Calcium,Total 8.8 mg/dL (8.5-10.1); Chloride 109 mmol/L (98-107); Creatinine, Serum 1.24 mg/dL (0.55-1.02); EST Glomerular Filtration Rate 45 mL/min (>60); Est Glom Filt Rate - Afr Amer 54 mL/min (>60); Glucose 127 mg/dL (74-106); Potassium 5.4 mmol/L (3.5-5.1); Sodium Level 141 mmol/L (136-145)
== END | disposition home or self-care (01) ==
LOC: LAB 14:59
PROVIDERS: PCP Family Medicine; Referring Provider Internal Medicine Endocrinology, Diabetes & Metabolism; Visit Provider Internal Medicine Endocrinology, Diabetes & Metabolism
DX: E11.65 Type 2 diabetes mellitus with hyperglycemia (principal); E11.22 Type 2 diabetes mellitus with diabetic chronic kidney disease; Z79.4 Long term (current) use of insulin; N18.32 Chronic kidney disease, stage 3b; E87.1 Hypo-osmolality and hyponatremia
CPT/HCPCS: 36415; 80048

== ENCOUNTER → 2022-05-30 | Outpatient (CLI) | payer MEDICARE, SELFPAY ==
[2022-05-30 14:54] LABS: Hematocrit 38.1 % (37-47); Hemoglobin 12.3 g/dL (12.0-15.0); Mean Corp Hgb Conc 32.3 g/dL (32-36); Mean Corpuscular Hgb 29.4 pg (27.0-32.0); Mean Corpuscular Volume 91.1 fL (81-99); Mean Platelet Vol. 10.2 fl (6.2-12.0); Platelet Count 266 K/mm3 (150-450); RBC Distribution Width CV 13.7 % (11.6-14.6); RBC Distribution Width SD 46.1 fl (35.1-43.9); Red Blood Count 4.18 M/mm3 (4.2-5.4)
[2022-05-30 15:19] LABS: PTHIN 294.5 pg/mL (18.4-80.1); Protein, Urine (Random) 109.5 mg/dL (<11.9); Protein:Creat Ratio 2455 mg/g CRE (0-200)
[2022-05-30 15:23] LABS: Vitamin D,25 Hydroxy 16.7 ng/mL
[2022-05-30 15:24] LABS: Albumin, Serum 3.3 g/dL (3.2-5.0); BUN 38 mg/dL (7-18); Calcium,Total 8.8 mg/dL (8.5-10.1); Chloride 110 mmol/L (98-107); Creatinine, Serum 1.73 mg/dL (0.55-1.02); EST Glomerular Filtration Rate 30 mL/min (>60); Est Glom Filt Rate - Afr Amer 37 mL/min (>60); Glucose 164 mg/dL (74-106); Potassium 4.8 mmol/L (3.5-5.1); Sodium Level 138 mmol/L (136-145)
[2022-06-03 16:09] LABS: Cytoplasmic Ab (C-ANCA) <1:20 titer (Neg:<1:20); PROEL- A/G Ratio 1.1 (0.7-1.7); PROEL- Albumin 3.4 g/dL (2.9-4.4); PROEL- Alpha-1 Globulin 0.3 g/dL (0.0-0.4); PROEL- Gamma Globulin 0.9 g/dL (0.4-1.8); PROEL- Globulin, Total 3.2 g/dL (2.2-3.9); PROEL- TOTAL PROTEIN 6.6 g/dL (6.0-8.5)
[2022-06-04 18:13] LABS: Complement C3 117 mg/dL (82-167); Perinuclear Ab (P-ANCA) 1:20 titer (Neg:<1:20)
[2022-06-04 18:20] LABS: Anti-dsDNA Ab <1 IU/mL (0-9)
== END | disposition home or self-care (01) ==
LOC: LAB 13:53
PROVIDERS: PCP Family Medicine; Referring Provider Internal Medicine Nephrology; Visit Provider Internal Medicine Nephrology
DX: N18.32 Chronic kidney disease, stage 3b (principal)
CPT/HCPCS: 36415; 80069; 82306; 82570; 83970; 84156; 84165; 85027; 86160; 86225; 86256

== ENCOUNTER → 2022-07-30 | Outpatient (CLI) | payer MEDICARE, SELFPAY ==
[2022-07-30 15:50] LABS: ALB/GLOB Ratio 0.8 RATIO (0.9-2.4); AST(SGOT) 15 U/L (15-37); Alanine Aminotransfer ALT/SGPT 21 U/L (13-56); Albumin, Serum 3.2 g/dL (3.2-5.0); Alkaline Phosphatase 106 U/L (45-117); Anion Gap 4 (5-15); BUN 36 mg/dL (7-18); BUN/Creat Ratio 24.3 RATIO (10-20); Calcium,Total 8.6 mg/dL (8.5-10.1); Chloride 109 mmol/L (98-107); Creatinine, Serum 1.48 mg/dL (0.55-1.02); EST Glomerular Filtration Rate 36 mL/min (>60); Est Glom Filt Rate - Afr Amer 44 mL/min (>60); Globulin 3.8 g/dL (2.2-4.2); Glucose 249 mg/dL (74-106); Sodium Level 136 mmol/L (136-145)
== END | disposition home or self-care (01) ==
LOC: LAB 14:39
PROVIDERS: PCP Family Medicine; Visit Provider Nurse Practitioner Family
DX: E11.22 Type 2 diabetes mellitus with diabetic chronic kidney disease (principal); N18.30 Chronic kidney disease, stage 3 unspecified
CPT/HCPCS: 36415; 80053

== ENCOUNTER → 2022-08-30 | Outpatient (CLI) | payer MEDICARE, SELFPAY ==
[2022-08-30 16:05] LABS: Hematocrit 39.3 % (37-47); Hemoglobin 12.3 g/dL (12.0-15.0); Mean Corp Hgb Conc 31.3 g/dL (32-36); Mean Corpuscular Hgb 28.9 pg (27.0-32.0); Mean Corpuscular Volume 92.5 fL (81-99); Mean Platelet Vol. 9.9 fl (6.2-12.0); Platelet Count 307 K/mm3 (150-450); RBC Distribution Width CV 13.7 % (11.6-14.6); RBC Distribution Width SD 46.4 fl (35.1-43.9); Red Blood Count 4.25 M/mm3 (4.2-5.4)
[2022-08-30 16:24] LABS: Microalbumin:Creatinine Ratio 1796.6 mg/g CRE (<30 mg/g CRE); Protein, Urine (Random) 50.8 mg/dL (<11.9); Protein:Creat Ratio 2870 mg/g CRE (0-200)
[2022-08-30 16:32] LABS: Albumin, Serum 3.5 g/dL (3.2-5.0); BUN 49 mg/dL (7-18); BUN/Creat Ratio 25.5 RATIO (10-20); Calcium,Total 8.6 mg/dL (8.5-10.1); Chloride 106 mmol/L (98-107); Creatinine, Serum 1.92 mg/dL (0.55-1.02); EST Glomerular Filtration Rate 27 mL/min (>60); Est Glom Filt Rate - Afr Amer 33 mL/min (>60); Glucose 158 mg/dL (74-106); Potassium 5.4 mmol/L (3.5-5.1); Sodium Level 139 mmol/L (136-145); Vitamin D,25 Hydroxy 25.1 ng/mL
[2022-09-02 07:43] LABS: PTHIN 605.9 pg/mL (18.4-80.1)
== END | disposition home or self-care (01) ==
PROVIDERS: PCP Family Medicine; Visit Provider Internal Medicine Nephrology
DX: N18.32 Chronic kidney disease, stage 3b (principal); R80.9 Proteinuria, unspecified
CPT/HCPCS: 36415; 80069; 82043; 82306; 82570; 83970; 84156; 85027

== ENCOUNTER → 2022-09-26 | Outpatient (CLI) | payer MEDICARE, SELFPAY ==
[2022-09-26 16:27] LABS: ALB/GLOB Ratio 0.8 RATIO (0.9-2.4); AST(SGOT) 11 U/L (15-37); Alanine Aminotransfer ALT/SGPT 17 U/L (13-56); Albumin, Serum 3.1 g/dL (3.2-5.0); Alkaline Phosphatase 99 U/L (45-117); Anion Gap 5 (5-15); BUN 39 mg/dL (7-18); BUN/Creat Ratio 23.6 RATIO (10-20); Calcium,Total 9.1 mg/dL (8.5-10.1); Chloride 108 mmol/L (98-107); Creatinine, Serum 1.65 mg/dL (0.55-1.02); EST Glomerular Filtration Rate 32 mL/min (>60); Est Glom Filt Rate - Afr Amer 39 mL/min (>60); Globulin 3.7 g/dL (2.2-4.2); Glucose 111 mg/dL (74-106); Potassium 5.7 mmol/L (3.5-5.1); Protein, Total 6.8 g/dL (6.4-8.2); Sodium Level 137 mmol/L (136-145)
== END | disposition home or self-care (01) ==
PROVIDERS: PCP Family Medicine; Visit Provider Nurse Practitioner Family
DX: N18.30 Chronic kidney disease, stage 3 unspecified (principal); E87.5 Hyperkalemia
CPT/HCPCS: 36415; 80053

== ENCOUNTER 2022-09-27 11:18 | Emergency (ER) | payer MEDICARE, SELFPAY ==
[2022-09-27 11:20] VITALS: BP 196/62; PULSE 84; RESP 18; TEMP 36.2; O2SAT 96; BMI 39.2
[2022-09-27 11:33] VITALS: BP 172/59; PULSE 79; RESP 17; O2SAT 98
--- NOTE | 2022-09-27 11:37 | EKG12_ITS ---
Test Reason : CP Blood Pressure : / mmHG Vent. Rate : 058 BPM Atrial Rate : 058 BPM P-R Int : 302 ms QRS Dur : 134 ms QT Int : 452 ms P-R-T Axes : 055 062 066 degrees QTc Int : 443 ms Sinus bradycardia with 1st degree A-V block Indeterminate axis Right bundle branch block Abnormal ECG Confirmed by NILAY MURRAY, JUSTINA ([id number]), clinical editor LEANN BLANTON ([id number]) on 10/01/2022 8:43:00 AM Referred By: Confirmed By:JUSTINA PEMBERTON MD
--- NOTE | 2022-09-27 11:41 | EDS_ITS ---
HPI History of Present Illness Chief Complaint: Abn Labs Informant: patient Narrative Narrative: Patient was sent here for abnormal labs that were done yesterday showing hyperkalemia at 5.7. Her retinae was 1.65, the last time she had a creatinine measurement was 1 month ago and it was 1.92 with a potassium of 5.4. I reviewed those outpatient labs that were done yesterday. Patient states she is asymptomatic. She sees Dr. Collier with endocrinology because of her diabetes, which is not well controlled, but she is asymptomatic today. She just started seeing nephrology Dr. Rojo, saw him for the first time about a month ago. [facility] Medical History Age related osteoporosis Anemia Anxiety Arthritis Bilateral primary osteoarthritis of knee Cardiac murmur Carpal tunnel syndrome Cellulitis Depression Dermatitis Diabetes Edema of both lower extremities Femoral neck fracture Fracture of femur, subcapital, right, closed Hip fracture requiring operative repair History of diabetes mellitus History of non-ST elevation myocardial infarction (NSTEMI) (03/21/21) History of renal insufficiency Open wound of left lower extremity Osteoarthritis Rheumatoid arthritis Rheumatoid arthritis Traumatic ulcer of left lower leg Type 2 diabetes mellitus without complications Ulcer of right lower extremity with fat layer exposed Venous stasis dermatitis of both lower extremities Home Medications ferrous sulfate 325 mg (65 mg iron) tablet 325 mg PO DAILY supplement 08/14/17 [History Last Taken 03/20/21] alendronate 70 mg tablet 70 mg PO MO BONES 08/10/20 [History Last Taken 2 Weeks Ago ~03/07/21] furosemide 40 mg tablet 40 mg PO DAILY diuretic 11/09/20 [History Last Taken 03/21/21] blood sugar diagnostic (OneTouch Verio test strips) #100 ea 03/27/21 [Rx Last Taken Unknown] pen needle, diabetic 32 gauge x 5/32 (BD Ultra-Fine Tracee Pen Needle) #100 ea 03/27/21 [Rx Last Taken Unknown] pramipexole 1 mg tablet 2 mg PO QHS rls 05/11/21 [History Last Taken Unknown] propranolol 40 mg tablet 20 mg PO BID 06/29/21 [History Last Taken Unknown] hfeqyji-ypogmkuch-hbmh tablet 1 tab PO DAILY 11/08/21 [History Last Taken Unknown] cholecalciferol (vitamin D3) 25 mcg (1,000 unit) capsule (Vitamin D3) 25 mcg PO DAILY 11/08/21 [History Last Taken Unknown] vitamin P73-gxzktemtm factor 1 tab PO/SL DAILY 11/08/21 [History Last Taken Unknown] flash glucose scanning reader ([employer] Antione 2 [place]) #2 ea 12/17/21 [Rx Last Taken Unknown] oxycodone 10 mg tablet 10 mg PO 03/20/22 [History Last Taken Unknown] Humalog Mix 50-50 KwikPen U-100 Insulin 100 unit/mL subcutaneous pen (insulin lispro protamin-lispro) 12 unit (0.12 mL) subcut BID #15 mL 05/01/22 [Rx Last Taken Unknown] amoxicillin 500 mg tablet 500 mg PO TID #21 tabs 09/12/22 [Rx Last Taken Unknown] cholecalciferol (vitamin D3) 1,250 mcg (50,000 unit) capsule 1,250 mcg PO 2XW #24 caps 09/12/22 [Rx Last Taken Unknown] Allergy/AdvReac Type Severity Reaction Status Date / Time karendia AdvReac Severe hyperkalemi Uncoded 09/27/22 12:49 a Family History Mother Diabetes Father Diabetes Surgical History History of back surgery History of gastric bypass History of total left hip replacement History of total right hip replacement Social History household members: other details: Lives with her son. Smoking Status: Never smoker alcohol intake: never substance use type: does not use ROS ROS ED Constitutional Constitutional ED: Denies chills or fever(s) Eyes Eyes: Denies change in vision or diplopia ENT ENT ED: Denies rhinorrhea or sore throat Cardiovascular Cardiovascular: Reports leg edema and other Details: Chronic leg edema bilaterally, no different than usual, always a little sore ; Denies chest pain, palpitations, pounding heartbeat, racing heartbeat or syncope Respiratory/Chest Respiratory/Chest: Denies cough or dyspnea Gastrointestinal Gastrointestinal: Reports diarrhea and other Details: Diarrhea chronic couple times a day no blood or melena, no different than usual ; Denies abdominal pain, nausea or vomiting Genitourinary Genitourinary ED: Denies dysuria, hematuria or urinary frequency Musculoskeletal Musculoskeletal: Denies back pain or neck pain Integumentary Denies abscess or rash Neurologic Neurologic: Denies headache(s), paresthesias or weakness Psychiatric Psychiatric: Denies anxiety or suicidal thoughts EXAM Physical Exam Const Vital Signs: 09/27/22 11:20 09/27/22 11:33 09/27/22 11:33 Temperature 97.1 F L Temperature Source Temporal Pulse Rate 84 79 Respiratory Rate 18 17 Respiratory Effort Normal Non-Labored Respiratory Pattern Normal Blood Pressure 196/62 H 172/59 H Blood Pressure Mean 106 96 Pulse Ox 96 98 Oxygen Delivery Method Room Air Room Air 09/27/22 12:28 09/27/22 14:39 Temperature Temperature Source Pulse Rate 63 78 Respiratory Rate 17 17 Respiratory Effort Respiratory Pattern Blood Pressure 145/74 H 159/63 H Blood Pressure Mean 97 95 Pulse Ox 98 98 Oxygen Delivery Method Room Air Room Air Positive well nourished, well developed and obese General Appearance ED: well developed and NAD Nutritional Appearance: obese HEENT Reports moist mucous membranes normocephalic and atraumatic Eyes PERRL and EOMs intact bilaterally Neck full ROM, supple and no JVD Resp normal respiratory effort and clear to auscultation bilaterally Cardio regular rate, regular rhythm and no murmurs Rate: Negative for tachycardic GI non-tender and non-distended Auscultation: normoactive bowel sounds Palpation: soft Back/Spine no CVA tenderness General Back: other FROM Extremity normal to inspection General Extremety ED: Yes edema; Negative for pulses abnormal or tenderness General Extremity: edema bilateral lower extremity Details: moderate; Negative for pulses abnormal Neuro oriented x3, CN's II-XII intact bilaterally and no sensory deficits noted Sensorium / Orientation: awake and alert Motor Exam: strength 5/5 throughout Skin no rashes or lesions noted and no wounds Skin Narrative: Hyperemic bilateral lower legs without significant superficial tenderness or other lesions MDM MDM MDM Narrative Medical decision making narrative: Patient has chronic renal insufficiency, her creatinine is improved compared with her prior about a month ago, and her potassium is elevated, presumably related to this and/or her diet. She is asymptomatic. She is very slight prolongation of the QRS on her EKG compared with her prior, she is a pre- existing first-degree AV block that is no different. She was given glucose and insulin as well as Kayexalate, I repeated her potassium prior to treatment and it was 5.5, and a couple hours later after treatment it was down to 4.8. She is doing well. Her creatinine is headed lower rather than higher. Discussed with Dr. Rojo with nephrology, who agrees with having the patient follow-up as an outpatient and request no other emergent treatments or prescriptions right now, the patient is comfortable with that plan. Lab Data Attestation: I reviewed the patient's lab results. Labs: Laboratory Results - last 24 hr 09/27/22 09/27/22 11:45 14:01 Sodium 137 Potassium 5.5 H 4.8 Chloride 108 H Carbon Dioxide 21.0 Anion Gap 8 BUN 41 H Creatinine 1.63 H Estim Creat Clear Calc 40.81 Est GFR (MDRD) Af Amer 39 L Est GFR (MDRD) Non-Af 33 L BUN/Creatinine Ratio 25.2 H Glucose 209 H Calcium 8.6 Rhythm Strip Rhythm Strip: Sinus Rhythm Rate: 60 Ectopy: None EKG Initial EKG: Attestation: I personally reviewed and interpreted this EKG as follows: Interpretation: Sinus Rhythm, RBBB and AV Block (1st deg) Prior EKG tracings: available for review Prior: Changed (slightly prolonged QRS c/w prior, but 1st deg AVB preexisting and unchanged) Discharge Plan Triage Chief Complaint: Abn Labs ED Provider: Bam Nassar Dx/Rx/DC Orders Clinical Impression: Hyperkalemia, diminished renal excretion, CKD (chronic kidney disease), stage III Instructions: ED Hyperkalemia Prescriptions: No Action alendronate 70 mg tablet 70 mg PO MO furosemide 40 mg tablet 40 mg PO DAILY Label Comments: TAKE 1 TABLET BY MOUTH ONCE DAILY (DME) pen needle, diabetic [BD Ultra-Fine Tracee Pen Needle] 32 gauge x 5/32 needle See Rx Instructions .ROUTE .MEDSUPPLY Qty: 100 5RF Rx Instructions: As directed5 times daily (DME) FreeStyle Antione 2 [place] Misc See Rx Instructions .ROUTE .MEDSUPPLY Qty: 2 6RF Rx Instructions: As directed oxycodone 10 mg tablet 10 mg PO Label Comments: TAKE 1 TABLET BY MOUTH FOUR TIMES DAILY NEEDED amoxicillin 500 mg tablet 500 mg PO TID Qty: 21 0RF ferrous sulfate 325 MG tablet 325 mg PO DAILY pramipexole 1 mg tablet 2 mg PO QHS propranolol 40 mg tablet 20 mg PO BID [id number]-ilbvztamk-zsgr Tablet 1 tab PO DAILY cholecalciferol (vitamin D3) [Vitamin D3] 25 mcg (1,000 unit) Capsule 25 mcg PO DAILY vitamin W39-fpgkpdkil factor 1 tab PO/SL DAILY (DME) OneTouch Verio test strips Strip See Rx Instructions .ROUTE .MEDSUPPLY Qty: 100 3RF Rx Instructions: 3x/day Humalog Mix 50-50 KwikPen 100 unit/mL (50-50) insulin pen 12 unit subcut BID Qty: 15 5RF Rx Instructions: with breakfast and supper cholecalciferol (vitamin D3) 1,250 mcg (50,000 unit) capsule 1,250 mcg PO 2XW Qty: 24 0RF Primary Care Provider: Leonard Stewart Referrals: Nicole Singleton MD [Med Staff - Consulting] - (will contact you for appt) Leonard Stewart DO [Primary Care Provider] - Disposition Disposition: Home, Self Care
--- NOTE | 2022-09-27 11:49 | ED.RN ---
NO OLD EKGS.
[2022-09-27 12:17] LABS: Anion Gap 8 (5-15); BUN 41 mg/dL (7-18); BUN/Creat Ratio 25.2 RATIO (10-20); Calcium,Total 8.6 mg/dL (8.5-10.1); Chloride 108 mmol/L (98-107); Creatinine, Serum 1.63 mg/dL (0.55-1.02); EST Glomerular Filtration Rate 33 mL/min (>60); Est Glom Filt Rate - Afr Amer 39 mL/min (>60); Estimated Creatinine Clearance 40.81 ml/min; Glucose 209 mg/dL (74-106); Potassium 5.5 mmol/L (3.5-5.1); Sodium Level 137 mmol/L (136-145)
[2022-09-27] MEDS: Sodium Polystyrene Sulfonate 15 GM/60 ML UDC PO (12:22)
[2022-09-27] MEDS: Insulin Lispro 10 UNIT in Syringe 0 ML 6 UNIT IV (12:23)
[2022-09-27] MEDS: Dextrose 50%-Water 25 GM/50 ML DISP.SYRIN IV (12:23)
[2022-09-27 12:28] VITALS: BP 145/74; PULSE 63; RESP 17; O2SAT 98
[2022-09-27 14:19] LABS: Potassium 4.8 mmol/L (3.5-5.1)
[2022-09-27 14:39] VITALS: BP 159/63; PULSE 78; RESP 17; O2SAT 98
== END 2022-09-27 16:06 | disposition home or self-care (01) ==
PROVIDERS: Emergency Provider Emergency Medicine; PCP Family Medicine; Visit Provider Emergency Medicine
DX: E87.5 Hyperkalemia (principal); M06.9 Rheumatoid arthritis, unspecified; E11.22 Type 2 diabetes mellitus with diabetic chronic kidney disease; Z79.4 Long term (current) use of insulin; N18.30 Chronic kidney disease, stage 3 unspecified; M81.0 Age-related osteoporosis without current pathological fracture; Z79.899 Other long term (current) drug therapy; I25.2 Old myocardial infarction; K52.9 Noninfective gastroenteritis and colitis, unspecified; F41.9 Anxiety disorder, unspecified; F32.9 Major depressive disorder, single episode, unspecified; M19.90 Unspecified osteoarthritis, unspecified site
CPT/HCPCS: 80048; 84132; 93005; 99284; A4216

== ENCOUNTER → 2022-10-25 | Outpatient (CLI) | payer MEDICARE, SELFPAY ==
[2022-10-25 16:05] LABS: Hemoglobin 11.9 g/dL (12.0-15.0); Mean Corp Hgb Conc 32.2 g/dL (32-36); Mean Corpuscular Hgb 29.8 pg (27.0-32.0); Mean Corpuscular Volume 92.5 fL (81-99); Mean Platelet Vol. 10.1 fl (6.2-12.0); Platelet Count 266 K/mm3 (150-450); RBC Distribution Width CV 13.6 % (11.6-14.6); RBC Distribution Width SD 46.6 fl (35.1-43.9); White Blood Count 7.5 K/mm3 (4.4-11.0)
[2022-10-25 16:34] LABS: Albumin, Serum 3.4 g/dL (3.2-5.0); BUN 65 mg/dL (7-18); BUN/Creat Ratio 32.5 RATIO (10-20); Chloride 108 mmol/L (98-107); EST Glomerular Filtration Rate 26 mL/min (>60); Est Glom Filt Rate - Afr Amer 31 mL/min (>60); Glucose 213 mg/dL (74-106); Phosphorus 4.1 mg/dL (2.5-4.9); Potassium 5.3 mmol/L (3.5-5.1); Sodium Level 136 mmol/L (136-145)
[2022-10-25 16:39] LABS: Vitamin D,25 Hydroxy 40.4 ng/mL
[2022-10-25 17:21] LABS: Microalbumin:Creatinine Ratio 1178.5 mg/g CRE (<30 mg/g CRE); Protein, Urine (Random) 100.8 mg/dL (<11.9); Protein:Creat Ratio 1836 mg/g CRE (0-200)
[2022-10-26 11:54] LABS: PTHIN 265.5 pg/mL (18.4-80.1)
== END | disposition home or self-care (01) ==
LOC: LAB 15:48
PROVIDERS: PCP Family Medicine; Referring Provider Internal Medicine Nephrology; Visit Provider Internal Medicine Nephrology
DX: N18.32 Chronic kidney disease, stage 3b (principal); R80.9 Proteinuria, unspecified
CPT/HCPCS: 36415; 80069; 82043; 82306; 82570; 83970; 84156; 85027

== ENCOUNTER 2022-10-27 17:08 | Inpatient (IN) | payer MEDICARE, SELFPAY ==
[2022-10-27 15:15] VITALS: BMI 38.3
[2022-10-27 15:37] VITALS: BP 187/66; PULSE 54; RESP 16; TEMP 36.8; O2SAT 97
[2022-10-27 15:39] VITALS: PULSE 54
--- NOTE | 2022-10-27 16:15 | HP.PCM.HOS_ITS ---
HPI - General General Date of Admission: 10/27/22 Date of Service: 10/27/22 Chief Complaint: Lightheadedness, presyncope HPI Narrative CASANDRA JONES, is a 77 F who presents as a direct admission from [facility] emergency room where the patient went for evaluation of severe lightheadedness and inability to ambulate. This first occurred last night, it worsened this morning, patient states she could not get out of bed due to the lightheadedness. Squad was called and the patient's grandson evidently (according to the patient) told the squad that the patient was having chest pain-patient denies any episode of chest pain today at any time. The emergency room physician told me today that the squad informed him that the patient's heart rate was 26 when the squad arrived to bring the patient to the hospital in [place]. She received 1 dose of IV atropine by squad. Work-up at the emergency room in [place] included an EKG which appears to show atrial fibrillation with a slow ventricular response of 50, there is a right bundle branch block noted, no evidence of ischemic changes were noted. Patient's chest x-ray showed scattered areas of what appears to be fibrotic changes in both lungs, no evidence of CHF was noted. Patient had a BNP performed which was elevated at 1572 (normal range 0?450), patient's CHEM panel was abnormal for creatinine of 1.89, glucose was 300, and troponin was elevated at 0.050 (normal up to 0.034). Patient's white blood cell count was normal, hemoglobin was 10. Patient does have a history of chronic kidney disease and sees Dr. Singleton. She also has a history of type [address] Ian Collier. Patient was directly admitted to PCU for elevated troponin (possible non-STEMI), she will be monitored on telemetry, cardiac enzymes will be cycled, patient takes propranolol at home for anxiety-this will be held at this time. Patient will get an echocardiogram performed tomorrow, patient's blood sugars will be monitored [facility] Medical History Age related osteoporosis Anemia Anxiety Arthritis Bilateral primary osteoarthritis of knee Cardiac murmur Carpal tunnel syndrome Cellulitis Depression Dermatitis Diabetes Edema of both lower extremities Femoral neck fracture Fracture of femur, subcapital, right, closed Hip fracture requiring operative repair History of diabetes mellitus History of non-ST elevation myocardial infarction (NSTEMI) (03/21/21) History of renal insufficiency Open wound of left lower extremity Osteoarthritis Rheumatoid arthritis Rheumatoid arthritis Traumatic ulcer of left lower leg Type 2 diabetes mellitus without complications Ulcer of right lower extremity with fat layer exposed Venous stasis dermatitis of both lower extremities Home Medications ferrous sulfate 325 mg (65 mg iron) tablet 325 mg PO DAILY supplement 08/14/17 [History Last Taken 03/20/21] alendronate 70 mg tablet 70 mg PO MO BONES 08/10/20 [History Last Taken 2 Weeks Ago ~03/07/21] furosemide 40 mg tablet 40 mg PO DAILY diuretic 11/09/20 [History Last Taken 03/21/21] blood sugar diagnostic ([employer] Verio test strips) #100 ea 03/27/21 [Rx Last Taken Unknown] pen needle, diabetic 32 gauge x 5/32 (BD Ultra-Fine Tracee Pen Needle) #100 ea 03/27/21 [Rx Last Taken Unknown] pramipexole 1 mg tablet 2 mg PO QHS rls 05/11/21 [History Last Taken Unknown] propranolol 40 mg tablet 20 mg PO BID anxiety 06/29/21 [History Last Taken Unknown] vitamin F34-vphgbbvhe factor 1 tab PO/SL DAILY supplement 11/08/21 [History Last Taken Unknown] flash glucose scanning reader ([employer] Antione 2 [place]) #2 ea 12/17/21 [Rx Last Taken Unknown] oxycodone 10 mg tablet 10 mg PO 4X/DAY chronic pain 03/20/22 [History Last Taken Unknown] Humalog Mix 50-50 KwikPen U-100 Insulin 100 unit/mL subcutaneous pen (insulin lispro protamin-lispro) 12 unit (0.12 mL) subcut BID #15 mL 05/01/22 [Rx Last Taken Unknown] cholecalciferol (vitamin D3) 1,250 mcg (50,000 unit) capsule 1,250 mcg PO 2XW #24 caps 09/12/22 [Rx Last Taken Unknown] Allergy/AdvReac Type Severity Reaction Status Date / Time karendia AdvReac Severe hyperkalemi Uncoded 09/27/22 12:49 a Family History Mother Diabetes Father Diabetes Surgical History History of back surgery History of gastric bypass History of total left hip replacement History of total right hip replacement Social History household members: other details: Lives with her son. Smoking Status: Never smoker alcohol intake: never substance use type: does not use ROS Constitutional Constitutional: Denies anorexia, change in weight, chills, fatigue, fever(s), night sweats or weakness Eyes Eyes: Denies blurry vision, change in vision, discharge from eye(s) or eye pain ENT HEENT: Denies abnormal hearing, dysphagia, ear pain or epistaxis Cardiovascular Cardiovascular: Reports lightheadedness; Denies chest pain, claudication, dyspnea on exertion, edema, orthopnea or palpitations Respiratory/Chest Respiratory/Chest: Denies cough, dyspnea, excessive phlegm production, hemoptysis, productive cough, shortness of breath at rest or shortness of breath with exertion Gastrointestinal Gastrointestinal: Denies abdominal pain, constipation, diarrhea, hematemesis, hematochezia, melena, nausea or vomiting Genitourinary Genitourinary: Denies dysuria, hematuria, urinary frequency, urinary hesitancy, urinary incontinence or urinary urgency Musculoskeletal Musculoskeletal: Denies back pain, joint pain, joint stiffness, joint swelling, myalgias or neck pain Neurologic Neurologic: Denies abnormal gait, abnormal speech, confusion, disequilibrium, dizziness, focal weakness, headache(s), loss of vision, numbness, other visual disturbances, paresthesias, syncope or tingling Psychiatric Psychiatric: Denies anxiety, cognitive impairment, depression, irritability, mood swings or suicidal ideation Endocrine Endocrinology: Denies change in body appearance, cold intolerance, excessive sweating, heat intolerance, polydipsia or polyuria Hematologic/Lymphatic Hematologic/Lymphatic: Denies none, anemia, easy bleeding, easy bruising or lymphadenopathy Allergic/Immunologic Allergic/Immunologic: Denies rhinitis, urticaria, eczemia or asthma Vital Signs Vital Signs Vital Signs: 10/27/22 15:37 10/27/22 15:39 Temperature 98.3 F Temperature Source Oral Pulse Rate 54 L 54 L Respiratory Rate 16 Respiratory Effort Normal Non-Labored Respiratory Depth Normal Respiratory Pattern Normal Blood Pressure 187/66 H Blood Pressure Mean 106 Blood Pressure Source Monitor Blood Pressure Position Semi-Fowlers Blood Pressure Location Left Arm Pulse Ox 97 Oxygen Delivery Method Room Air Room Air Weight Weight: 86.183 kg Body Mass Index (BMI) 38.3 Physical Exam Const alert, oriented x3, no apparent distress, average body habitus and healthy appearing General Appearance: cooperative, well kempt and well developed Orientation / Consciousness: awake, oriented to person, oriented to place and oriented to time HEENT normocephalic, head/scalp atraumatic and moist oral mucous membranes Eyes PERRL, EOMs intact bilaterally and conjunctivae normal Neck supple, no JVD, thyroid normal and no carotid bruits General: trachea midline Resp normal respiratory effort, no retractions and no use of accessory muscles Resp Narrative: Scattered inspiratory rales are noted at the bases bilaterally Auscultation: Negative for rales, rhonchi or wheezes Cardio regular rate, regular rhythm, S1 normal heart sound, S2 normal heart sound, no murmurs, no rub and no gallops Cardio Narrative: Heart rate is bradycardic GI normal to inspection, nondistended, normoactive bowel sounds, soft to palpation, non-tender and non-distended Extremity Extremity Narrative: There is generalized edema noted over both lower legs with clear small bullous formation over the skin scattered over both lower legs Skin no rashes or lesions noted General Skin Exam: no breakdown Neuro oriented x3, CN's II-XII intact bilaterally, moves all extremities, no focal motor deficits and no sensory deficits noted Sensorium / Orientation: awake, alert, oriented to person, oriented to place and oriented to time Speech: speech normal Psych affect normal Assessment & Plan Assessment/Plan (1) T2DM (type 2 diabetes mellitus): QUALIFIERS: Diabetes mellitus senior care insulin use: with senior care use Diabetes mellitus complication status: with skin complications Diabetes mellitus complication detail: with other skin ulcer Qualified Code(s): E11.622 - Type 2 diabetes mellitus with other skin ulcer; Z79.4 - snf (current) use of insulin PLAN: Plan 1. Elevated troponin-etiology unclear at this point, she may have had a non- STEMI although she has no complaints of any chest pain, cardiac enzymes will be cycled, patient will be monitored on telemetry #2 atrial fib with slow ventricular response-patient's propranolol will be held, patient will be monitored on telemetry #3 chronic kidney disease stage IV-secondary to type 2 diabetes, labs will be monitored #4 type 2 diabetes-patient's blood sugars will be monitored, sliding scale insulin will be given #5 past history of non-ST elevation ME-patient sees Dr. Herrera on an ongoing basis, she states she is unaware she is ever been diagnosed with heart attack in the past. #6 chronic anxiety-patient states she takes propranolol on a chronic basis, this will be held due to her bradycardia We do not have a complete list of the patient's medications at this time. Total clinical time spent by myself addressing the patient's medical issues, reviewing all of the data, and collaborating with the patient's care team: 75 minutes Charges/Coding Visit Charges Inpatient E&M: 53999 Init Hosp L3
[2022-10-27 18:57] LABS: Troponin-I HS 97 pg/mL (3.0-54.0)
--- NOTE | 2022-10-27 19:38 | NURSING ---
home medication list reviewed with daughter at bedside. pt is knowledgeable and in agreement.
[2022-10-27 20:15] LABS: Troponin-I HS 96 pg/mL (3.0-54.0)
[2022-10-27 21:49] VITALS: BP 134/53; PULSE 60; RESP 18; TEMP 37.3; O2SAT 95
[2022-10-27] MEDS: Acetaminophen 325 MG Tablet 650 MG PO (22:03)
[2022-10-27] MEDS: Insulin Glargine-YFGN 100 UNIT/ML Pen 10 UNIT SC (22:04)
[2022-10-27] MEDS: Pramipexole Di-HCl 1 MG Tablet 2 MG PO (22:04)
[2022-10-27] MEDS: oxyCODONE 5 MG Tablet 10 MG PO (22:04)
[2022-10-27] MEDS: Heparin Injection (Vial) 5,000 UNIT/ML VIAL 5000 UNIT SC (22:04)
[2022-10-27] MEDS: Insulin Lispro 100 UNIT/ML INSULN.PEN SC (22:05)
[2022-10-28] VITALS (14 sets, daily range): BP systolic 114–175; BP diastolic 45–145; PULSE 40–62; RESP 16–18; TEMP 36.5–37.1; O2SAT 95–99
[2022-10-28 00:51] LABS: Bedside Glucose 202 mg/dL (74-106)
[2022-10-28 01:00] LABS: Troponin-I HS 93 pg/mL (3.0-54.0)
--- NOTE | 2022-10-28 05:55 | ECHOD_ITS ---
Reason For Study: ELEVATED TROP Procedure This was a 2D Doppler, Color Flow transthoracic echocardiogram. Exam performed portable in patient room. Left Ventricle Normal LV size. Left ventricular systolic function is normal. The estimated ejection fraction is 65 %. No regional wall motion abnormalities noted. Right Ventricle Normal RV size. Normal systolic function. Atria The left atrium is moderately enlarged. Normal right atrium. Mitral Valve Normal mitral valve. Tricuspid Valve Normal tricuspid valve. Mild (1+) tricuspid valve insufficiency. Pulmonary artery systolic pressure is 38 mmHg. Aortic Valve Trisinus/trileaflet aortic valve. Pulmonic Valve Normal pulmonic valve. Great Vessels Normal aortic root. The pulmonary artery is normal size. Normal inferior vena cava. Pericardium/Pleural No pericardial effusion. MMode/2D Measurements & Calculations Ao root diam: 2.9 cm LAV(MOD-bp): 84.3 ml LVAd ap4: 26.0 cm2 LAV(MOD-bp) Indexed: 47.3 ml/m2 LVLd ap4: 7.5 cm LAV(MOD-sp2): 72.8 ml EDV(MOD-sp4): 73.4 ml LAV(MOD-sp4): 94.3 ml EDV(sp4-el): 76.5 ml LVAs ap4: 10.8 cm2 LVLs ap4: 6.2 cm ESV(MOD-sp4): 16.0 ml ESV(sp4-el): 16.1 ml EF(MOD-sp4): 78.2 % EF(sp4-el): 79.0 % SV(MOD-sp4): 57.4 ml SV(sp4-el): 60.4 ml LA A4 area: 26.1 cm2 LA dimension(2D): 4.5 cm RA A4 area: 14.7 cm2 Time Measurements MV dec time: 0.30 sec Doppler Measurements & Calculations MV E max eriberto: 102.9 cm/sec Lat Peak E' Eriberto: 9.5 cm/sec Med Peak E' Eriberto: 6.3 cm/sec MV A max eriberto: 89.7 cm/sec E/E' lat: 10.8 E/E' med: 16.2 MV E/A: 1.1 MV V2 max: 112.1 cm/sec MV dec slope: 346.4 cm/sec2 Ao V2 max: 150.3 cm/sec MV max P.0 mmHg Ao max P.0 mmHg MV V2 mean: 60.1 cm/sec MV mean P.8 mmHg MV V2 VTI: 46.0 cm LV V1 max: 98.1 cm/sec PA V2 max: 121.4 cm/sec TR max eriberto: 293.4 cm/sec LV V1 max P.8 mmHg PA V2 mean: 81.4 cm/sec TR max P.4 mmHg ECHO/Echo Complete Interpretation Summary Normal LV size. Left ventricular systolic function is normal. The left atrium is moderately enlarged. The estimated ejection fraction is 65 %. Pulmonary artery systolic pressure is 38 mmHg. Ordering Physician: Leonard Clinton Referring Physician: Leonard Stewart Performed By: Lexie Doyle RCS
[2022-10-28 06:31] LABS: Bedside Glucose 109 mg/dL (74-106)
[2022-10-28 06:44] LABS: Absolute Lymphocyte Count 1.88 X10^3/uL (0.83-4.51); Absolute Neutrophil Count 3.7 X10^3/uL (2.0-7.7); Basophil# 0.04 X10^3/uL; Basophil% 0.6 % (0-1); Eosinophil# 0.47 X10^3/uL; Eosinophils% 7.1 % (0-5); Hematocrit 33.1 % (37-47); Hemoglobin 10.6 g/dL (12.0-15.0); Lymphocyte # 1.88 X10^3/ul (0.83-4.51); Lymphocyte % 28.3 % (19-41); Mean Corpuscular Hgb 29.8 pg (27.0-32.0); Mean Platelet Vol. 10.9 fl (6.2-12.0); Monocyte# 0.52 X10^3/uL; Monocyte% 7.8 % (0-10); NRBC Flagged by Analyzer 0 % (0-5); Neutrophil # 3.71 X10^3/uL (2.7-7.7); Neutrophil % 55.9 % (47-70); Platelet Count 247 K/mm3 (150-450); RBC Distribution Width CV 13.7 % (11.6-14.6); Red Blood Count 3.56 M/mm3 (4.2-5.4); White Blood Count 6.6 K/mm3 (4.4-11.0)
[2022-10-28 07:18] LABS: Anion Gap 3 (5-15); BUN 61 mg/dL (7-18); BUN/Creat Ratio 38.4 RATIO (10-20); Calcium,Total 8.5 mg/dL (8.5-10.1); Chloride 114 mmol/L (98-107); Creatinine, Serum 1.59 mg/dL (0.55-1.02); EST Glomerular Filtration Rate 34 mL/min (>60); Est Glom Filt Rate - Afr Amer 41 mL/min (>60); Estimated Creatinine Clearance 40.95 ml/min; Glucose 113 mg/dL (74-106); Iron 60 ug/dL (50-170); Iron Binding Capacity,Total 303 ug/dL (250-450); PERCENT IRON SATURATION 19.8 % (15.0-55.0); Potassium 4.7 mmol/L (3.5-5.1); Sodium Level 139 mmol/L (136-145)
[2022-10-28] MEDS: Ferrous Sulfate 325 MG Tablet PO (08:26)
[2022-10-28] MEDS: Heparin Injection (Vial) 5,000 UNIT/ML VIAL 5000 UNIT SC ×2 (08:26→20:45)
[2022-10-28] MEDS: oxyCODONE 5 MG Tablet 10 MG PO ×3 (08:26→20:46)
[2022-10-28] MEDS: Insulin Glargine-YFGN 100 UNIT/ML Pen 10 UNIT SC (11:12)
[2022-10-28] MEDS: Insulin Lispro 100 UNIT/ML INSULN.PEN SC ×3 (11:12→20:47)
--- NOTE | 2022-10-28 12:00 | CASEMGMT ---
RN CM Face to Face with patient for initial transition planning/care coordination assessment. RN CM introduced self and role at [facility]. Patient lying in bed, alert and oriented. Patient willing to participate in assessment and is able to answer all questions appropriately. Care providers, pharmacy, and demographics verified. Patient wishes to discharge home, denies need for home health at this time. Patient states she has no further needs or concerns at this time. CM to follow for discharge planning needs that may arise. PCP: Pat Specialists: , Repairer Screen Crusher; Areli, family medicine physician assistant; Javier, is manager Preferred Pharmacy: [facility]; [facility] retail at discharge. Insurance: [employer] [facility] Prescription Benefit: yes Living Will/HPOA: yes, but would like to update due to passing away, SW notified LNOK: son, daughter Living Arrangements: Patient lives with son in a 2 story home with bed and bath on first floor. 3-4 steps to enter the home. Patient states she is independent at home. Transportation: son, daughter DME/HHC: Patient has shower chair, raised toilet, cane, walker, grab bars, and glucometer with supplies at home. Patient has had [facility] HHC in the past. Patient has been to [facility] in the past. Disposition Plan: Patient to discharge home with family support and follow-up plans in place. Precious RODRIGUEZ, RN, CM
[2022-10-28 12:25] LABS: Bedside Glucose 286 mg/dL (74-106)
[2022-10-28] MEDS: Atropine Sulfate 1 MG/10 ML Syringe IV (13:03)
[2022-10-28] MEDS: 0.9% Saline Lock 10 ML Syringe IV (13:04)
--- NOTE | 2022-10-28 13:13 | NURSING ---
Pt left floor to research lab assistant.
[2022-10-28 14:50] LABS: Bedside Glucose 36 mg/dL (74-106)
[2022-10-28 15:11] LABS: Bedside Glucose 140 mg/dL (74-106)
--- NOTE | 2022-10-28 16:04 | PCM.CONS.C ---
Assessment & Plan Assessment/Plan (1) Symptomatic bradycardia: PLAN: The patient presented with symptomatic bradycardia with significant pauses. This was after she had been of beta-varsha for over 24 hours. At this juncture it appears that the patient has some element of sick sinus syndrome and after discussion with the patient it was determined to pursue an emergent permanent pacemaker implantation due to his symptomatic nature. Risk benefits alternatives explained to the patient who agreed to proceed. This was also discussed with the family. (2) Hypertension: PLAN: She has a history of hypertension and her medications will be adjusted as appropriate. Would recommend the addition of amlodipine 5 mg a day. Thank you for allowing me to participate in the care of your patient. Please don't hesitate to call if any issues arise. HPI Consult Data Date of Consult: 10/28/22 HPI Narrative HPI Narrative: CASANDRA JONES, is a 77 F who presents as a direct patient from [facility] emergency room where she presented with severe lightheadedness and inability to ambulate. She is a known patient of ours with a history of hypertension and non-ST elevation myocardial infarction and diabetes mellitus. She had undergone stress testing in 2020 which demonstrated no evidence of ischemia. In the emergency room she was noted that she had a heart rate of 26 when the squad arrived and she was given atropine. She was transferred to [facility] where she was evaluated and was noted to be in a sinus bradycardic rhythm with a first-degree AV block and a right bundle branch block. During her admission she was noted to have a series of pauses with the longest up to 5 seconds. She was symptomatic with the above. Cardiology was consulted for further evaluation and management. She had been on low-dose of propranolol which had been discontinued over 24 hours ago but she continued to have symptomatic pauses. [facility] Medical History Age related osteoporosis Anemia Anxiety Arthritis Bilateral primary osteoarthritis of knee Cardiac murmur Carpal tunnel syndrome Cellulitis Depression Dermatitis Diabetes Edema of both lower extremities Femoral neck fracture Fracture of femur, subcapital, right, closed Hip fracture requiring operative repair History of diabetes mellitus History of non-ST elevation myocardial infarction (NSTEMI) (03/21/21) History of renal insufficiency Open wound of left lower extremity Osteoarthritis Rheumatoid arthritis Rheumatoid arthritis Traumatic ulcer of left lower leg Type 2 diabetes mellitus without complications Ulcer of right lower extremity with fat layer exposed Venous stasis dermatitis of both lower extremities Home Medications ferrous sulfate 325 mg (65 mg iron) tablet 325 mg PO DAILY supplement 08/14/17 [History Last Taken 03/20/21] alendronate 70 mg tablet 70 mg PO MO BONES 08/10/20 [History Last Taken 2 Weeks Ago ~03/07/21] furosemide 40 mg tablet 40 mg PO DAILY diuretic 11/09/20 [History Last Taken 03/21/21] blood sugar diagnostic (PersistIQTouch Verio test strips) #100 ea 03/27/21 [Rx Last Taken Unknown] pen needle, diabetic 32 gauge x 5/32 (BD Ultra-Fine Tracee Pen Needle) #100 ea 03/27/21 [Rx Last Taken Unknown] pramipexole 1 mg tablet 2 mg PO QHS rls 05/11/21 [History Last Taken Unknown] propranolol 40 mg tablet 20 mg PO BID anxiety 06/29/21 [History Last Taken Unknown] vitamin P12-xwixslesf factor 1 tab PO/SL DAILY supplement 11/08/21 [History Last Taken Unknown] flash glucose scanning reader ([employer] [address] [place]) #2 ea 12/17/21 [Rx Last Taken Unknown] oxycodone 10 mg tablet 10 mg PO 4X/DAY chronic pain 03/20/22 [History Last Taken Unknown] Humalog Mix 50-50 KwikPen U-100 Insulin 100 unit/mL subcutaneous pen (insulin lispro protamin-lispro) 12 unit (0.12 mL) subcut BID #15 mL 05/01/22 [Rx Last Taken Unknown] cholecalciferol (vitamin D3) 1,250 mcg (50,000 unit) capsule 1,250 mcg PO 2XW #24 caps 09/12/22 [Rx Last Taken Unknown] Allergy/AdvReac Type Severity Reaction Status Date / Time karendia AdvReac Severe hyperkalemi Uncoded 09/27/22 12:49 a Family History Mother Diabetes Father Diabetes Surgical History History of back surgery History of gastric bypass History of total left hip replacement History of total right hip replacement Social History household members: other details: Lives with her son. Smoking Status: Never smoker alcohol intake: never substance use type: does not use ROS Constitutional Constitutional: Denies fever(s) or weight loss Eyes Eyes: Reports systems reviewed and no addt'l complaints, except as documented ENT HEENT: Reports systems reviewed and no addt'l complaints, except as documented Cardiovascular Cardiovascular: Reports dizziness and dyspnea on exertion; Denies chest pain at rest, chest pain with activity, dyspnea at rest, edema, palpitations or paroxysmal nocturnal dyspnea Respiratory/Chest Respiratory/Chest: Denies dyspnea on exertion, productive cough, shortness of breath at rest or shortness of breath with exertion Gastrointestinal Gastrointestinal: Denies change in bowel habits, nausea, vomiting or weight changes Genitourinary Genitourinary: Denies difficulty urinating Musculoskeletal Musculoskeletal: Denies joint stiffness or muscle weakness Integumentary Integumentary: Denies lesions Neurologic Neurologic: Reports dizziness; Denies syncope Psychiatric Psychiatric: Denies anxiety Endocrine Endocrinology: Denies excessive sweating or fatigue Hematologic/Lymphatic Hematologic/Lymphatic: Denies anemia Allergic/Immunologic Allergic/Immunologic: Denies seasonal rhinorrhea Physical Exam Const alert, oriented x3 and no apparent distress General Appearance: cooperative HEENT hearing grossly normal bilaterally Head and Scalp: atraumatic Eyes EOMs intact bilaterally Neck General: normal visual inspection Chest inspection of chest normal and palpation of chest normal Resp normal respiratory effort Auscultation: clear to auscultation bilaterally Cardio regular rate, regular rhythm, S1 normal heart sound and S2 normal heart sound Jugular Venous Distention: JVD GI normal to inspection, nondistended, normoactive bowel sounds Extremity normal capillary refill and no pedal edema Peripheral Pulses: Yes pulses 2+ throughout and femoral pulses present Skin no rashes or lesions noted Neuro oriented x3 and CN's II-XII intact bilaterally Psych Appearance: grossly normal and appropriate Risk Stratification Risk Stratification Applicable: No Objective Data Vital Signs: Vital Signs Temp Pulse Resp BP Pulse Ox O2 Del Method 98.3 F 59 L 18 127/45 H 98 Room Air 10/28/22 13:07 10/28/22 13:07 10/28/22 13:07 10/28/22 13:07 10/28/22 13:07 10/28/22 13:07 Oxygen Delivery Method Room Air Weight: 190 lb Body Mass Index (BMI) 38.3 Intake & Output: Intake and Output for Last 24 Hours 10/26/22 10/27/22 10/28/22 23:59 23:59 23:59 Intake Total 0 / 150 690 / 690 Balance 0 / 150 690 / 690 Lab / Micro Data Result Diagrams: 10/28/22 05:55 10/28/22 05:55 Labs: Laboratory Results - last 24 hr 10/27/22 18:09: Troponin I High Sens 97 H 10/27/22 19:36: Troponin I High Sens 96 H 10/27/22 21:51: POC Glucose 202 H 10/28/22 00:05: Troponin I High Sens 93 H 10/28/22 05:55: WBC 6.6, RBC 3.56 L, Hgb 10.6 L, Hct 33.1 L, MCV 93.0, MCH 29.8, MCHC 32.0, RDW Std Deviation 47.0 H, RDW Coeff of Fady 13.7, Plt Count 247, MPV 10.9, Immature Gran % (Auto) 0.300, Neut % (Auto) 55.9, Lymph % (Auto) 28.3, [place] % (Auto) 7.8, Eos % (Auto) 7.1 H, Baso % (Auto) 0.6, Absolute Neuts (auto) 3.7, Absolute Lymphs (auto) 1.88, Nucleated RBC % 0 10/28/22 05:55: Sodium 139, Potassium 4.7, Chloride 114 H, Carbon Dioxide 22.0, Anion Gap 3 L, BUN 61 H, Creatinine 1.59 H, Estim Creat Clear Calc 40.95, Est GFR (MDRD) Af Amer 41 L, Est GFR (MDRD) Non-Af 34 L, BUN/Creatinine Ratio 38.4 H, Glucose 113 H, Calcium 8.5, Iron 60, TIBC 303, Iron Saturation 19.8 10/28/22 05:58: POC Glucose 109 H 10/28/22 11:11: POC Glucose 286 H 10/28/22 14:21: POC Glucose 36 L* 10/28/22 14:46: POC Glucose 140 H Cardiology Labs/Tests 10/28/22 05:55: WBC 6.6, RBC 3.56 L, Hgb 10.6 L, Hct 33.1 L, MCV 93.0, MCH 29.8, MCHC 32.0, Plt Count 247, MPV 10.9, Immature Gran % (Auto) 0.300, Neut % (Auto) 55.9, Lymph % (Auto) 28.3, [place] % (Auto) 7.8, Eos % (Auto) 7.1 H, Baso % (Auto) 0.6, Absolute Neuts (auto) 3.7, Nucleated RBC % 0 10/28/22 05:55: Sodium 139, Potassium 4.7, Chloride 114 H, Carbon Dioxide 22.0, Anion Gap 3 L, BUN 61 H, Creatinine 1.59 H, Est GFR (MDRD) Af Amer 41 L, Est GFR (MDRD) Non-Af 34 L, BUN/Creatinine Ratio 38.4 H, Glucose 113 H, Calcium 8.5, Iron 60, TIBC 303, Iron Saturation 19.8 Rhythm: EKG: ECHO: Stress Test: Cardiac Cath: PCI: CT Surgery: Holter monitor: EPS: PPM: CXR: Chest CT Scan: Radiography Diagnostic Testing: Radiology Impression Echocardiogram 10/28/22 05:55 Interpretation Summary Normal LV size. Left ventricular systolic function is normal. The left atrium is moderately enlarged. The estimated ejection fraction is 65 %. Pulmonary artery systolic pressure is 38 mmHg. Ordering Physician: Leonard Clinton Referring Physician: Leonard Stewart Performed By: Lexie Doyle RCS
--- NOTE | 2022-10-28 16:08 | CL.IE_ITS ---
Patient: CASANDRA JONES Study Date: 10/28/2022 Performing: Cole Herrera MD : 1945 Age: 77 Gender: female PROCEDURES PERFORMED [id number]-([id number])INITIAL PACER INSERT+DUAL LEADS INDICATIONS Sinoatrial node dysfunction/Sick sinus syndrome PROCEDURE DETAILS The patient was brought to the Catheterization Lab in the postabsorptive nonsedated state. Informed consent was obtained prior to the procedure. Local anesthetic was given subcutaneously to the left upper chest area with Lidocaine 2%. Access was achieved and a guidewire was advanced into the left subclavian vein. Incision was made to the left upper chest. PPM ventricular lead was inserted / positioned to right ventricular apex. PPM atrial lead testing performed. PPM atrial lead was inserted / positioned to the right atrial appendage. PPM atrial lead testing performed. PPM atrial lead was repositioned and checked. The Atrial lead sutured in place with 2-0 Silk. The Ventricular PM lead sutured in place with 2-0 Silk. PPM generator was attached to the lead(s) and inserted into the pocket. Device pocket was irrigated with antibiotic, Ancef 1GM. PPM generator was then interrogated by the systems programmer. Subcutaneous closure was completed with 3-0 Vicryl. Skin closure was completed with 4-0 Vicryl. Steri-strips applied to Lt chest area. The patient tolerated the procedure well. Estimated Blood Loss: 10 ml's IMPLANTED / EX-PLANTED DEVICES IMPLANTED DEVICE(S): PPM Ventricular lead - Information Security Associate: [employer], Model # 2088TC , Serial # [id number] PPM Atrial lead - Information Security Associate: [employer], Model # 2088TC , Serial # [id number] PPM Generator - Information Security Associate: [employer], Model # PI0790 , Serial # [id number] DEVICE PARAMETERS ATRIAL LEAD PARAMETERS: P wave- 1.2 (mV) threshold- 1.0 (V) impedence- 450 (OHMS) VENTRICULAR LEAD PARAMETERS: R wave- 4.6 (mV) threshold- 0.75 (V) impedence- 640 (OHMS) DEVICE PARAMETERS: Mode- DDDR Lower rate- 60 Upper rate- 120 CONCLUSIONS / RECOMMENDATIONS Device Conclusions: Successful implantation of a dual chamber pacemaker Device Recommendations: Follow up with Primary Care Physician PROCEDURE MEDICATIONS Fentanyl 50 mcg IV Fentanyl 25 mcg IV Versed 1 mg IV Oxygen: 2 L/min via nasal cannula Antibiotic given in appropriate timeframe. Ancef 2 Gm IV @ 10/28/2022 14:05:23 Signed By Cole Herrera MD On 10/28/2022 16:07:56 Cole Herrera MD
--- NOTE | 2022-10-28 16:12 | CHAPLAIN ---
Type of Pastoral Visit ___ Initial Visit ___ Follow-up Visit ___ On-call Visit ___ General Patient Visit ___ Spiritual Assessment ___ Family Conference ___ Bereavement ___ Rapid Response ___ Code Blue ___ Other (describe below) Pastoral Care Referral From ___ Patient ___ Family ___ Nurse ___ Physician ___ Speeder Frame Tender ___ Retail Financial Analyst ___ Other (describe below) Sacrament/Intervention ___ Active listening ___ Anointing ___ Denominational ___ Bereavement ___ Communion ___ Jessica exploration ___ ___ Life review ___ Prayer ___ Reconciliation ___ Sacrament of Sick ___ Supportive presence ___ Wedding ___ Other (describe below) Pastoral Comments patient and bed are not in the room; left a calling card
[2022-10-28 18:56] LABS: Bedside Glucose 72 mg/dL (74-106)
--- NOTE | 2022-10-28 19:22 | PCM.PN.HOSP ---
Reason for Visit Reason for Visit: Diagnoses Type 2 diabetes mellitus with other skin ulcer (10/27/22) long-term (current) use of insulin (10/27/22) Subjective Subjective Patient was seen and examined earlier today, she remained very bradycardic with sinus arrest of up to 5.05 seconds today, I had several discussions with cardiology and they felt that it would be prudent to place a pacemaker and the patient today. I heard earlier this evening from cardiology that the patient's blood sugar was actually in the 30s when she came down for the pacemaker so some of the patient's feeling unwell was probably secondary to low blood sugar. Objective Data Objective Data Vital Signs: Vital Signs Temp Pulse Resp BP Pulse Ox O2 Del Method 98.2 F 62 16 155/82 H 98 Room Air 10/28/22 18:15 10/28/22 18:15 10/28/22 18:15 10/28/22 18:15 10/28/22 18:15 10/28/22 18:15 Oxygen Delivery Method Room Air Weight: 86.183 kg Body Mass Index (BMI) 38.3 Intake & Output: Intake and Output for Last 24 Hours 10/26/22 10/27/22 10/28/22 23:59 23:59 23:59 Intake Total 0 / 150 1010 / 1010 Balance 0 / 150 1010 / 1010 Lab / Micro Data Result Diagrams: 10/28/22 05:55 10/28/22 05:55 Labs: Laboratory Results - last 24 hr 10/27/22 19:36: Troponin I High Sens 96 H 10/27/22 21:51: POC Glucose 202 H 10/28/22 00:05: Troponin I High Sens 93 H 10/28/22 05:55: WBC 6.6, RBC 3.56 L, Hgb 10.6 L, Hct 33.1 L, MCV 93.0, MCH 29.8, MCHC 32.0, RDW Std Deviation 47.0 H, RDW Coeff of Fady 13.7, Plt Count 247, MPV 10.9, Immature Gran % (Auto) 0.300, Neut % (Auto) 55.9, Lymph % (Auto) 28.3, Hand % (Auto) 7.8, Eos % (Auto) 7.1 H, Baso % (Auto) 0.6, Absolute Neuts (auto) 3.7, Absolute Lymphs (auto) 1.88, Nucleated RBC % 0 10/28/22 05:55: Sodium 139, Potassium 4.7, Chloride 114 H, Carbon Dioxide 22.0, Anion Gap 3 L, BUN 61 H, Creatinine 1.59 H, Estim Creat Clear Calc 40.95, Est GFR (MDRD) Af Amer 41 L, Est GFR (MDRD) Non-Af 34 L, BUN/Creatinine Ratio 38.4 H, Glucose 113 H, Calcium 8.5, Iron 60, TIBC 303, Iron Saturation 19.8 10/28/22 05:58: POC Glucose 109 H 10/28/22 11:11: POC Glucose 286 H 10/28/22 14:21: POC Glucose 36 L* 10/28/22 14:46: POC Glucose 140 H 10/28/22 16:50: POC Glucose 72 L Radiography Diagnostic Testing: Radiology Impression Echocardiogram 10/28/22 05:55 Interpretation Summary Normal LV size. Left ventricular systolic function is normal. The left atrium is moderately enlarged. The estimated ejection fraction is 65 %. Pulmonary artery systolic pressure is 38 mmHg. Ordering Physician: Leonard Clinton Referring Physician: Leonard Stewart Performed By: Lexie Doyle RCS Physical Exam Const alert, oriented x3, no apparent distress and average body habitus Constitutional Narrative: Patient appeared unwell earlier this morning General Appearance: cooperative, well kempt and well developed Orientation / Consciousness: awake, oriented to person, oriented to place and oriented to time HEENT normocephalic, head/scalp atraumatic and moist oral mucous membranes Eyes PERRL, EOMs intact bilaterally and conjunctivae normal Neck supple, no JVD, thyroid normal and no carotid bruits General: trachea midline Resp normal respiratory effort, no retractions, no use of accessory muscles and clear to auscultation bilaterally Auscultation: Negative for rales, rhonchi or wheezes Cardio regular rate, regular rhythm, S1 normal heart sound, S2 normal heart sound, no murmurs, no rub and no gallops Cardio Narrative: Patient has a marked sinus bradycardia with periods of sinus arrest GI normal to inspection, nondistended, normoactive bowel sounds, soft to palpation, non-tender and non-distended Extremity no clubbing, cyanosis or edema Skin no rashes or lesions noted General Skin Exam: no breakdown Neuro oriented x3, CN's II-XII intact bilaterally, moves all extremities, no focal motor deficits and no sensory deficits noted Sensorium / Orientation: awake, alert, oriented to person, oriented to place and oriented to time Speech: speech normal Psych affect normal Assessment & Plan Assessment/Plan (1) Symptomatic bradycardia: (2) T2DM (type 2 diabetes mellitus): QUALIFIERS: Diabetes mellitus intermediate teacher insulin use: with fci use Diabetes mellitus complication status: with skin complications Diabetes mellitus complication detail: with other skin ulcer Qualified Code(s): E11.622 - Type 2 diabetes mellitus with other skin ulcer; 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 Herrera on an ongoing basis, she states she is unaware she is ever been diagnosed with heart attack in the past. #6 chronic anxiety-patient states she takes propranolol on a chronic basis, this will be held due to her bradycardia Total clinical time spent by myself addressing the patient's medical issues, reviewing all of the data, and collaborating with the patient's care team: 38 minutes Charges/Coding Visit Charges Inpatient E&M: 67824 Subs Hosp L2
[2022-10-28] MEDS: Acetaminophen 325 MG Tablet 650 MG PO (20:45)
[2022-10-28] MEDS: Pramipexole Di-HCl 1 MG Tablet 2 MG PO (20:47)
[2022-10-28] MEDS: Insulin Glargine-YFGN 100 UNIT/ML Pen 7 UNIT SC (20:48)
[2022-10-29 00:44] VITALS: BP 117/68; PULSE 60; RESP 20; TEMP 37.2; O2SAT 96
--- NOTE | 2022-10-29 00:59 | NURSING ---
Pt called nurse to room due to blood glucose monitor reading low at 68, blood glucose checked with glucometer at 78, pt provided with yogurt and elisabeth cracker per pt request. will monitor.
[2022-10-29 01:10] LABS: Bedside Glucose 297 mg/dL (74-106)
[2022-10-29 01:26] LABS: Bedside Glucose 78 mg/dL (74-106)
[2022-10-29 05:27] VITALS: BP 158/79; PULSE 60; RESP 18; TEMP 37.2; O2SAT 96
--- NOTE | 2022-10-29 05:53 | PN.CARD_ITS ---
Subjective Subjective Patient seen and evaluated. Appears to be doing quite well this morning. Objective Data Vital Signs: Vital Signs Temp Pulse Resp BP Pulse Ox O2 Del Method 98.9 F 60 18 158/79 H 96 Room Air 10/29/22 05:27 10/29/22 05:27 10/29/22 05:27 10/29/22 05:27 10/29/22 05:27 10/29/22 05:27 Oxygen Delivery Method Room Air Weight: 190 lb Body Mass Index (BMI) 38.3 Intake & Output: Intake and Output for Last 24 Hours 10/27/22 10/28/22 10/29/22 23:59 23:59 23:59 Intake Total 0 / 150 1010 / 1130 240 / 240 Output Total 950 / 950 Balance 0 / 150 1010 / 530 -710 / -710 Lab / Micro Data Result Diagrams: 10/28/22 05:55 10/28/22 05:55 Labs: Laboratory Results - last 24 hr 10/28/22 05:55: WBC 6.6, RBC 3.56 L, Hgb 10.6 L, Hct 33.1 L, MCV 93.0, MCH 29.8, MCHC 32.0, RDW Std Deviation 47.0 H, RDW Coeff of Fady 13.7, Plt Count 247, MPV 10.9, Immature Gran % (Auto) 0.300, Neut % (Auto) 55.9, Lymph % (Auto) 28.3, [place] % (Auto) 7.8, Eos % (Auto) 7.1 H, Baso % (Auto) 0.6, Absolute Neuts (auto) 3.7, Absolute Lymphs (auto) 1.88, Nucleated RBC % 0 10/28/22 05:55: Sodium 139, Potassium 4.7, Chloride 114 H, Carbon Dioxide 22.0, Anion Gap 3 L, BUN 61 H, Creatinine 1.59 H, Estim Creat Clear Calc 40.95, Est GFR (MDRD) Af Amer 41 L, Est GFR (MDRD) Non-Af 34 L, BUN/Creatinine Ratio 38.4 H , Glucose 113 H, Calcium 8.5, Iron 60, TIBC 303, Iron Saturation 19.8 10/28/22 05:58: POC Glucose 109 H 10/28/22 11:11: POC Glucose 286 H 10/28/22 14:21: POC Glucose 36 L* 10/28/22 14:46: POC Glucose 140 H 10/28/22 16:50: POC Glucose 72 L 10/28/22 20:43: POC Glucose 297 H 10/29/22 00:57: POC Glucose 78 Cardiology Labs/Tests 10/28/22 05:55: WBC 6.6, RBC 3.56 L, Hgb 10.6 L, Hct 33.1 L, MCV 93.0, MCH 29.8, MCHC 32.0, Plt Count 247, MPV 10.9, Immature Gran % (Auto) 0.300, Neut % (Auto) 55.9, Lymph % (Auto) 28.3, [place] % (Auto) 7.8, Eos % (Auto) 7.1 H, Baso % (Auto) 0.6, Absolute Neuts (auto) 3.7, Nucleated RBC % 0 10/28/22 05:55: Sodium 139, Potassium 4.7, Chloride 114 H, Carbon Dioxide 22.0, Anion Gap 3 L, BUN 61 H, Creatinine 1.59 H, Est GFR (MDRD) Af Amer 41 L, Est GFR (MDRD) Non-Af 34 L, BUN/Creatinine Ratio 38.4 H, Glucose 113 H, Calcium 8.5, Iron 60, TIBC 303, Iron Saturation 19.8 Rhythm: EKG: ECHO: Stress Test: Cardiac Cath: PCI: CT Surgery: Holter monitor: EPS: PPM: CXR: Chest CT Scan: Radiography Diagnostic Testing: Radiology Impression Echocardiogram 10/28/22 05:55 Interpretation Summary Normal LV size. Left ventricular systolic function is normal. The left atrium is moderately enlarged. The estimated ejection fraction is 65 %. Pulmonary artery systolic pressure is 38 mmHg. Ordering Physician: Leonard Clinton Referring Physician: Leonard Stewart Performed By: Lexie Doyle RCS Physical Exam Const alert, oriented x3, no apparent distress and average body habitus Constitutional Narrative: Patient appeared unwell earlier this morning General Appearance: cooperative, well kempt and well developed Orientation / Consciousness: awake, oriented to person, oriented to place and oriented to time HEENT normocephalic, head/scalp atraumatic and moist oral mucous membranes Eyes PERRL, EOMs intact bilaterally and conjunctivae normal Neck supple, no JVD, thyroid normal and no carotid bruits General: trachea midline Resp normal respiratory effort, no retractions, no use of accessory muscles and clear to auscultation bilaterally Auscultation: Negative for rales, rhonchi or wheezes Cardio regular rate, regular rhythm, S1 normal heart sound, S2 normal heart sound, no murmurs, no rub and no gallops Cardio Narrative: Patient has a marked sinus bradycardia with periods of sinus arrest GI normal to inspection, nondistended, normoactive bowel sounds, soft to palpation, non-tender and non-distended Extremity no clubbing, cyanosis or edema Skin no rashes or lesions noted General Skin Exam: no breakdown Neuro oriented x3, CN's II-XII intact bilaterally, moves all extremities, no focal motor deficits and no sensory deficits noted Sensorium / Orientation: awake, alert, oriented to person, oriented to place and oriented to time Speech: speech normal Psych affect normal Assessment & Plan Assessment/Plan (1) Symptomatic bradycardia: PLAN: The patient presented with symptomatic bradycardia with significant pauses. Patient is status post permanent pacemaker implantation. The pacemaker be interrogated this morning. If it is normal she can be discharged for outpatient follow-up. (2) Hypertension: PLAN: She has a history of hypertension and her medications will be adjusted as appropriate. Would recommend the addition of amlodipine 5 mg a day. Thank you for allowing me to participate in the care of your patient. Please don't hesitate to call if any issues arise.
--- NOTE | 2022-10-29 05:55 | RAD_ITS ---
INDICATION: Post permanent ICD/Pacemaker -- inspiration/expiration. Arms Down. Wet read to MD EXAMINATION/TECHNIQUE: X-RAY - AP and lateral views of chest, inspiration and expiration frontal views COMPARISON: None received FINDINGS: LINES/DEVICES: Left AICD in place. LUNGS: No overt pulmonary edema or focal airspace consolidation. Small benign calcified nodule overlying posterior mid thorax on lateral view. No sizable pleural effusion. No detectable pneumothorax. MEDIASTINUM AND CARDIOVASCULAR STRUCTURES: Heart size within normal limits for imaging technique. Atherosclerotic calcifications along aorta. BONES AND SOFT TISSUES: Skeletal degenerative changes with slightly exaggerated thoracic kyphosis. RAD/Chest 3 View IMPRESSION: No radiographic evidence of acute cardiopulmonary disease. Electronically Signed: Leonard Lyman MD at 6:06 EDT ,
[2022-10-29 07:20] LABS: Bedside Glucose 137 mg/dL (74-106)
[2022-10-29 08:02] VITALS: BP 132/73; PULSE 60; RESP 16; TEMP 36.8; O2SAT 97
[2022-10-29] MEDS: oxyCODONE 5 MG Tablet 10 MG PO ×2 (08:04→14:45)
[2022-10-29] MEDS: Ferrous Sulfate 325 MG Tablet PO (08:05)
[2022-10-29] MEDS: Heparin Injection (Vial) 5,000 UNIT/ML VIAL 5000 UNIT SC (08:05)
[2022-10-29] MEDS: Insulin Lispro 100 UNIT/ML INSULN.PEN SC ×3 (08:09→11:34)
--- NOTE | 2022-10-29 09:29 | PCM.DC ---
Discharge Instructions Diet Discharge Diet: No restrictions Activity Discharge Activity: May Not Drive Additional Activity Instructions:: May shower or bathe on [day 3]. Do not scrub the incision or soak in the tub. Just wash with soap and let the water run over the incision. Gently pat dry with towel. Medications: Take your pain medication as directed. Refer to your discharge instruction sheet for a list of medications you are to take. Dressing / Incision Call your doctor if your incision/area has: Continuous Slow Oozing, Sudden Increased Bleeding, Increased Pain/ Swelling, Increased Redness, Foul Smelling Discharge and Swelling at the incision site Call your doctor if you observe: Fever of 101 or Higher, Shortness of breath, Dizziness, Fainting spells, Swelling in the ankles, Chest pain, Prolonged hiccupping and Increased palpitations (irregular heartbeat) Suture Line Care: Avoid Pulling/Pushing and Avoid Pinching/Bending Additional Dressing/Incision Instructions:: When dressing is removed, wash and dry incision. Keep covered with a light bandage if it is rubbing against your clothing. Do not cover the incision with an airtight bandage. Change the bandage daily. Do not remove steri strips. The strips will fall off on their own. Follow Up Care Please Follow Up With: Cole Herrera MD When: Pacer follow up on November 04 at 1:30 PM in the pacer clinic. Test Results: Test results from this visit will be discussed in further detail at your follow-up appointment, if applicable. Discharge Plan Admission Admit Date/Time: 10/27/22 17:08 Attending Provider: Leonard Clinton Primary Care Provider: Leonard Stewart Consulting Providers: Cole Herrera Discharge Orders/Prescriptions Prescriptions: No Action alendronate 70 mg tablet 70 mg PO MO furosemide 40 mg tablet 40 mg PO DAILY Label Comments: TAKE 1 TABLET BY MOUTH ONCE DAILY (DME) pen needle, diabetic [BD Ultra-Fine Tracee Pen Needle] 32 gauge x 5/32 needle See Rx Instructions .ROUTE .MEDSUPPLY Qty: 100 5RF Rx Instructions: As directed5 times daily (DME) FreeStyle Antione 2 [place] Misc See Rx Instructions .ROUTE .MEDSUPPLY Qty: 2 6RF Rx Instructions: As directed oxycodone 10 mg tablet 10 mg PO 4X/DAY Label Comments: TAKE 1 TABLET BY MOUTH FOUR TIMES DAILY NEEDED ferrous sulfate 325 MG tablet 325 mg PO DAILY pramipexole 1 mg tablet 2 mg PO QHS propranolol 40 mg tablet 20 mg PO BID vitamin Z18-ecgmbalve factor 1 tab PO/SL DAILY (DME) OneTouch Verio test strips Strip See Rx Instructions .ROUTE .MEDSUPPLY Qty: 100 3RF Rx Instructions: 3x/day Humalog Mix 50-50 KwikPen 100 unit/mL (50-50) insulin pen 12 unit subcut BID Qty: 15 5RF Rx Instructions: pt is taking 13 units with breakfast and supper cholecalciferol (vitamin D3) 1,250 mcg (50,000 unit) capsule 1,250 mcg PO 2XW Qty: 24 0RF Referrals / Follow Up: Leonard Stewart DO [Primary Care Provider] -
--- NOTE | 2022-10-29 09:51 | DCINST_ITS ---
Discharge Instructions Diet Discharge Diet: No restrictions and 1800 Calorie Control Diet Activity Discharge Activity: Return to Normal Activity Weight Bearing Status: Full weight bearing Additional Activity Instructions:: May shower or bathe on [day 3]. Do not scrub the incision or soak in the tub. Just wash with soap and let the water run over the incision. Gently pat dry with towel. Medications: Take your pain medication as directed. Refer to your discharge instruction sheet for a list of medications you are to take. Dressing / Incision Call your doctor if your incision/area has: Continuous Slow Oozing, Sudden Increased Bleeding, Increased Pain/ Swelling, Increased Redness, Foul Smelling Discharge and Swelling at the incision site Call your doctor if you observe: Fever of 101 or Higher, Shortness of breath, Dizziness, Fainting spells, Swelling in the ankles, Chest pain, Prolonged hiccupping and Increased palpitations (irregular heartbeat) Suture Line Care: Avoid Pulling/Pushing and Avoid Pinching/Bending Additional Dressing/Incision Instructions:: When dressing is removed, wash and dry incision. Keep covered with a light bandage if it is rubbing against your clothing. Do not cover the incision with an airtight bandage. Change the bandage daily. Do not remove steri strips. The strips will fall off on their own. Follow Up Care Please Follow Up With: Cole Herrera MD Test Results: Test results from this visit will be discussed in further detail at your follow- up appointment, if applicable. Discharge Plan Admission Admit Date/Time: 10/27/22 17:08 Primary Reason for Your Visit: bradycardia Attending Provider: Leonard Clinton Primary Care Provider: Leonard Stewart Consulting Providers: Cole Herrera Discharge Orders/Prescriptions Prescriptions: Continued alendronate 70 mg tablet 70 mg PO MO furosemide 40 mg tablet 40 mg PO DAILY Label Comments: TAKE 1 TABLET BY MOUTH ONCE DAILY (DME) pen needle, diabetic [BD Ultra-Fine Tracee Pen Needle] 32 gauge x 32 needle See Rx Instructions .ROUTE .MEDSUPPLY Qty: 100 5RF Rx Instructions: As directed5 times daily (DME) FreeStyle Antione 2 [place] Misc See Rx Instructions .ROUTE .MEDSUPPLY Qty: 2 6RF Rx Instructions: As directed oxycodone 10 mg tablet 10 mg PO 4X/DAY Label Comments: TAKE 1 TABLET BY MOUTH FOUR TIMES DAILY NEEDED ferrous sulfate 325 MG tablet 325 mg PO DAILY pramipexole 1 mg tablet 2 mg PO QHS propranolol 40 mg tablet 20 mg PO BID vitamin B61-utmbjgruf factor 1 tab PO/SL DAILY (DME) OneTouch Verio test strips Strip See Rx Instructions .ROUTE .MEDSUPPLY Qty: 100 3RF Rx Instructions: 3x/day Humalog Mix 50-50 KwikPen 100 unit/mL (50-50) insulin pen 12 unit subcut BID Qty: 15 5RF Rx Instructions: pt is taking 13 units with breakfast and supper cholecalciferol (vitamin D3) 1,250 mcg (50,000 unit) capsule 1,250 mcg PO 2XW Qty: 24 0RF Referrals / Follow Up: Sandi Vora [Registered Nurse] - 11/04/22 1:30 pm (Your appt is with Adelia cook Pacer RN for a wound check. ) Leonard Stewart DO [Primary Care Provider] - Within 2 Weeks Disposition Disposition (needs filled in before D/C Order can be placed): Home, Self Care
--- NOTE | 2022-10-29 10:05 | DS.PCM_ITS ---
Providers Date of Admission: 10/27/22 Date of Discharge: 10/29/22 Primary Care Physician: Dr. Leonard Stewart, DO Consultations 10/28/22 13:03 Consult: Cardiology Routine Consulting Provider: Cole Herrera Reason for Consult: bradycardia EMERGENT Consult: No MD Notified: Yes Date Notified: 10/28/22 Time Notified: 13:04 Method of Notification: Verbal Method of Consult:: In-Person Reason For Visit: BRADYCARDIA, ELEVATED TROPONIN Diagnosis Discharge Diagnosis (1) Symptomatic bradycardia: Status: Resolved Code(s): R00.1 - Bradycardia, unspecified (2) Hypertension: Status: Chronic Code(s): I10 - Essential (primary) hypertension Plan 1. 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 Herrera on an ongoing basis, she states she is unaware she is ever been diagnosed with heart attack in the past. #6 chronic anxiety-patient states she takes propranolol on a chronic basis, this will be held due to her bradycardia Total clinical time spent by myself addressing the patient's medical issues, reviewing all of the data, and collaborating with the patient's care team: 38 minutes Medications at Discharge Home Medications ferrous sulfate 325 mg (65 mg iron) tablet 325 mg PO DAILY supplement 08/14/17 alendronate 70 mg tablet 70 mg PO MO BONES 08/10/20 furosemide 40 mg tablet 40 mg PO DAILY diuretic 11/09/20 blood sugar diagnostic (OneTouch Verio test strips) #100 ea 03/27/21 pen needle, diabetic 32 gauge x 5/32 (BD Ultra-Fine Tracee Pen Needle) #100 ea 03/27/21 pramipexole 1 mg tablet 2 mg PO QHS rls 05/11/21 propranolol 40 mg tablet 20 mg PO BID anxiety 06/29/21 vitamin Z08-mantqrklk factor 1 tab PO/SL DAILY supplement 11/08/21 flash glucose scanning reader (FreeStyle Antione 2 [place]) #2 ea 12/17/21 oxycodone 10 mg tablet 10 mg PO 4X/DAY chronic pain 03/20/22 Humalog Mix 50-50 KwikPen U-100 Insulin 100 unit/mL subcutaneous pen (insulin lispro protamin-lispro) 12 unit (0.12 mL) subcut BID #15 mL 05/01/22 cholecalciferol (vitamin D3) 1,250 mcg (50,000 unit) capsule 1,250 mcg PO 2XW #24 caps 09/12/22 Hospital Course Operations None Procedures 2-D Echocardiogram and - (Cardiac pacemaker insertion) Summary of Care Provided Minutes Spent on Discharge: 32 Hospital Course: This 77-year-old white female was directly admitted to PCU from an outside emergency room where she was evaluated for complaints lightheadedness, when the patient was picked up by squad, it was noted that her heart rate was in the 20s and she was given atropine before she reached the emergency room. EKG in the emergency room showed a sinus bradycardia in the 50s, there was some discussion that she may have complained of chest pain although the patient denied this, troponin was drawn which was noted to be elevated. Patient was transferred directly to PCU, serial enzymes were obtained which remained elevated at about the same level. She also had an echocardiogram performed which showed a normal EF. The day of the echocardiogram, the patient bradycardia downward into the 20s and 30s and became symptomatic, she had over a 5-second sinus arrest, cardiology was contacted and put in a pacemaker. Patient did well after pacemaker insertion and there was no untoward events. On 10/29/2022, patient was seen and examined: On examination she appeared in good health and spirits, she does not appear to be in any distress. Vital signs as documented. Skin warm and dry and without overt rashes. Neck without JVD, thyroid appears normal, trachea is midline, neck is supple. Lungs clear, normal air movement was noted. Heart exam notable for regular rhythm, normal sounds and absence of murmurs, rubs or gallops. Abdomen unremarkable and without evidence of organomegaly, masses, or abdominal aortic enlargement, bowel sounds are present in all 4 quadrants, no abdominal tenderness was noted. Extremities nonedematous, no cyanosis was noted, no clubbing was noted. Neuro: Cranial nerves II through XII are grossly intact, no focal motor deficits were noted, sensation to light touch and pinprick is intact, motor exam 5/5 throughout. Psych: Patient is alert and oriented x3, she does not appear anxious or depre ssed, she does not appear agitated. Patient appears stable for discharge home on 10/29/2022. Weight / BMI Weight Weight: 86.183 kg Body Mass Index (BMI) 38.3 ABG / Lab / Microbiology Data Result Diagrams: 10/28/22 05:55 10/28/22 05:55 Laboratory: Laboratory Results - last 24 hr 10/28/22 11:11: POC Glucose 286 H 10/28/22 14:21: POC Glucose 36 L* 10/28/22 14:46: POC Glucose 140 H 10/28/22 16:50: POC Glucose 72 L 10/28/22 20:43: POC Glucose 297 H 10/29/22 00:57: POC Glucose 78 10/29/22 06:22: POC Glucose 137 H Radiography Diagnostic Testing: Radiology Impression Echocardiogram 10/28/22 05:55 Interpretation Summary Normal LV size. Left ventricular systolic function is normal. The left atrium is moderately enlarged. The estimated ejection fraction is 65 %. Pulmonary artery systolic pressure is 38 mmHg. Ordering Physician: Leonard Clinton Referring Physician: Leonard Stewart Performed By: Lexie Doyle RCS Chest X-Ray 10/29/22 05:55 IMPRESSION: No radiographic evidence of acute cardiopulmonary disease. Electronically Signed: Leonard Lyman MD at 6:06 EDT , D/C Instructions Discharge Diet: No restrictions and 1800 Calorie Control Diet Weight Bearing Status: Full weight bearing Additional Activity Instructions: May shower or bathe on [day 3]. Do not scrub the incision or soak in the tub. Just wash with soap and let the water run over the incision. Gently pat dry with towel. Medications: Take your pain medication as directed. Refer to your discharge instruction sheet for a list of medications you are to take. Call your doctor if your incision/area has: Continuous Slow Oozing, Sudden Increased Bleeding, Increased Pain/ Swelling, Increased Redness, Foul Smelling Discharge and Swelling at the incision site Call your doctor if you observe: Fever of 101 or Higher, Shortness of breath, Dizziness, Fainting spells, Swelling in the ankles, Chest pain, Prolonged hiccupping and Increased palpitations (irregular heartbeat) Suture Line Care: Avoid Pulling/Pushing and Avoid Pinching/Bending Additional Dressing/Incision Instructions: When dressing is removed, wash and dry incision. Keep covered with a light bandage if it is rubbing against your clothing. Do not cover the incision with an airtight bandage. Change the bandage daily. Do not remove steri strips. The strips will fall off on their own. Please Follow Up With: Cole Herrera MD When: Pacer follow up on November 04 at 1:30 PM in the pacer clinic. Meaningful Use Info Meaningful Use Diagnoses (Choose all that apply): None applicable Discharge Plan Admission Admit Date/Time: 10/27/22 17:08 Primary Reason for Your Visit: bradycardia Attending Provider: Leonard Clinton Primary Care Provider: Leonard Stewart Consulting Providers: Cole Herrera Discharge Orders/Prescriptions Prescriptions: Continued alendronate 70 mg tablet 70 mg PO MO furosemide 40 mg tablet 40 mg PO DAILY Label Comments: TAKE 1 TABLET BY MOUTH ONCE DAILY (DME) pen needle, diabetic [BD Ultra-Fine Tracee Pen Needle] 32 gauge x 5/32 needle See Rx Instructions .ROUTE .MEDSUPPLY Qty: 100 5RF Rx Instructions: As directed5 times daily (DME) FreeStyle Antione 2 [place] [facility] [place] See Rx Instructions .ROUTE .MEDSUPPLY Qty: 2 6RF Rx Instructions: As directed oxycodone 10 mg tablet 10 mg PO 4X/DAY Label Comments: TAKE 1 TABLET BY MOUTH FOUR TIMES DAILY NEEDED ferrous sulfate 325 MG tablet 325 mg PO DAILY pramipexole 1 mg tablet 2 mg PO QHS propranolol 40 mg tablet 20 mg PO BID vitamin J96-quiapfhpz factor 1 tab PO/SL DAILY (DME) OneTouch Verio test strips Strip See Rx Instructions .ROUTE .MEDSUPPLY Qty: 100 3RF Rx Instructions: 3x/day Humalog Mix 50-50 KwikPen 100 unit/mL (50-50) insulin pen 12 unit subcut BID Qty: 15 5RF Rx Instructions: pt is taking 13 units with breakfast and supper cholecalciferol (vitamin D3) 1,250 mcg (50,000 unit) capsule 1,250 mcg PO 2XW Qty: 24 0RF Referrals / Follow Up: Sandi Vora [Registered Nurse] - 11/04/22 1:30 pm (Your appt is with Alex RN for a wound check. ) Leonard Stewart DO [Primary Care Provider] - Within 2 Weeks Disposition Disposition (needs filled in before D/C Order can be placed): Home, Self Care Charges/Coding Visit Charges Inpatient E&M: 13119 Disch Hosp >30min
--- NOTE | 2022-10-29 10:46 | PHA.DC.MR ---
Pharmacy Service has performed discharge medication reconciliation for this patient. The patient's discharge medication list was reviewed for discrepancies and discrepancies were resolved. Home Medications ferrous sulfate 325 mg (65 mg iron) tablet 325 mg PO DAILY supplement 08/14/17 alendronate 70 mg tablet 70 mg PO MO BONES 08/10/20 furosemide 40 mg tablet 40 mg PO DAILY diuretic 11/09/20 blood sugar diagnostic (OneTouch Verio test strips) #100 ea 03/27/21 pen needle, diabetic 32 gauge x 5/32 (BD Ultra-Fine Tracee Pen Needle) #100 ea 03/27/21 pramipexole 1 mg tablet 2 mg PO QHS rls 05/11/21 propranolol 40 mg tablet 20 mg PO BID anxiety 06/29/21 vitamin X11-rburvhpkb factor 1 tab PO/SL DAILY supplement 11/08/21 flash glucose scanning reader ([employer] Antione 2 [place]) #2 ea 12/17/21 oxycodone 10 mg tablet 10 mg PO 4X/DAY chronic pain 03/20/22 Humalog Mix 50-50 KwikPen U-100 Insulin 100 unit/mL subcutaneous pen (insulin lispro protamin-lispro) 12 unit (0.12 mL) subcut BID #15 mL 05/01/22 cholecalciferol (vitamin D3) 1,250 mcg (50,000 unit) capsule 1,250 mcg PO 2XW #24 caps 09/12/22
[2022-10-29] MEDS: Insulin Glargine-YFGN 100 UNIT/ML Pen 7 UNIT SC (11:35)
--- NOTE | 2022-10-29 12:00 | CASEMGMT ---
RN CM updated that patient is discharge. RN CM in to discuss discharge planning. Patient denies needs at discharge. Patient had no further questions or concerns at this time.
[2022-10-29 12:05] LABS: Bedside Glucose 211 mg/dL (74-106)
--- NOTE | 2022-10-29 12:13 | CHAPLAIN ---
Type of Pastoral Visit _x__ Initial Visit ___ Follow-up Visit ___ On-call Visit ___ General Patient Visit ___ Spiritual Assessment ___ Family Conference ___ Bereavement ___ Rapid Response ___ Code Blue ___ Other (describe below) Pastoral Care Referral From _x__ Patient ___ Family ___ Nurse ___ Physician ___ Emergency Room Physician ___ Water Pollution Specialist ___ Other (describe below) Sacrament/Intervention _x__ Active listening ___ Anointing ___ Mosque ___ Bereavement ___ Communion ___ Jessica exploration ___ ___ Life review _x__ Prayer ___ Reconciliation ___ Sacrament of Sick _x__ Supportive presence ___ Wedding ___ Other (describe below) Pastoral Comments 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
[2022-10-29 12:57] VITALS: BP 143/60; PULSE 63; RESP 16; TEMP 36.7; O2SAT 99
== END 2022-10-29 14:51 | disposition home or self-care (01) | DRG 243 ==
PROVIDERS: Admitting Provider Internal Medicine; PCP Family Medicine; Visit Provider Internal Medicine
DX: R00.1 Bradycardia, unspecified (principal); N18.4 Chronic kidney disease, stage 4 (severe); E11.22 Type 2 diabetes mellitus with diabetic chronic kidney disease; E11.622 Type 2 diabetes mellitus with other skin ulcer; D64.9 Anemia, unspecified; F41.9 Anxiety disorder, unspecified; I48.91 Unspecified atrial fibrillation; I49.5 Sick sinus syndrome; L98.499 Non-pressure chronic ulcer of skin of other sites with unspecified severity; Z79.4 Long term (current) use of insulin; I10 Essential (primary) hypertension; I44.0 Atrioventricular block, first degree; I45.10 Unspecified right bundle-branch block; I25.2 Old myocardial infarction; Z79.83 Long term (current) use of bisphosphonates
CPT/HCPCS: 33208; 36415; 71047; 80048; 80069; 82043; 82306; 82570; 82962; 83540; 83550; 83970; 84156; 84484; 85025; 85027; 93306; 97162; 99152; 99153; 99406; J7040; J7050; A4216; C1894

== ENCOUNTER → 2022-11-14 | Outpatient (CLI) | payer MEDICARE, SELFPAY ==
--- NOTE | 2022-11-14 | LES_PTH ---
PATIENT: CASANDRA JONES LOC: [facility] [place]#:[id number] AGE/SX: 77/F ROOM: RE11/14/[address]: Dr. Leonard Stewart DO : 1945 BED: DIS: 11/14/2022 SPEC #: [id number] RECD: 11/14/22 12:43 STATUS: LULU CAMRON #: [id number] RAMIREZ: 11/14/22 00:[address]: Leonard Stewart DEPT: SURGICAL PATHOLOGY RECD BY: Valerio Lowery Tissues: Skin of forearm, NOS Procedures: Surgery Specimen Level IV HEADER OPERATION: Excision left forearm lesion PRE-OP DIAGNOSIS: Rapidly growing domed nodule, favor keratoacanthoma, rule out SCC TISSUE SUBMITTED: Nodule left forearm MICROSCOPIC DIAGNOSIS Left forearm lesion, excisional biopsy: Well-differentiated invasive squamous cell carcinoma, keratoacanthomatous type, completely excised. Extensive solar elastosis. See comment. SJ:melodie 11/15/2022 COMMENT Perineural invasion is not seen. Clinical correlation and appropriate follow-up are necessary. MICROSCOPIC DESCRIPTION Slides are reviewed. GROSS DESCRIPTION Received in fixative is one container labeled with the patient's name and designated left forearm lesion. The specimen consists of a bridges-white skin ellipse measuring 2.8 x 1.2 cm and up to 0.5 cm in thickness. There is a bridges, ulcerated lesion on the surface measuring 1.1 x 1.0 cm. The specimen is inked, serially sectioned and submitted entirely in two cassettes. Cassette 1 also contains the tip of skin ellipse. / HEIDE:melodie 11/14/2022 TC:0 CPT: 11849
== END | disposition home or self-care (01) ==
LOC: LABSPEC 12:14
PROVIDERS: PCP Family Medicine; Visit Provider Family Medicine
DX: R22.32 Localized swelling, mass and lump, left upper limb (principal)
CPT/HCPCS: 88305

== ENCOUNTER → 2023-03-10 | Outpatient (CLI) | payer MEDICARE, SELFPAY ==
[2023-03-10 10:40] LABS: Hematocrit 35.9 % (37-47); Hemoglobin 11.4 g/dL (12.0-15.0); Mean Corp Hgb Conc 31.8 g/dL (32-36); Mean Corpuscular Hgb 29.7 pg (27.0-32.0); Mean Corpuscular Volume 93.5 fL (81-99); Mean Platelet Vol. 10.3 fl (6.2-12.0); Platelet Count 237 K/mm3 (150-450); RBC Distribution Width CV 13.2 % (11.6-14.6); Red Blood Count 3.84 M/mm3 (4.2-5.4); White Blood Count 6.5 K/mm3 (4.4-11.0)
[2023-03-10 11:02] LABS: PTHIN 477.5 pg/mL (18.4-80.1)
[2023-03-10 11:03] LABS: Albumin, Serum 3.3 g/dL (3.2-5.0); BUN 43 mg/dL (7-18); BUN/Creat Ratio 24.6 RATIO (10-20); Calcium,Total 8.4 mg/dL (8.5-10.1); Chloride 108 mmol/L (98-107); Creatinine, Serum 1.75 mg/dL (0.55-1.02); EST Glomerular Filtration Rate 30 mL/min (>60); Est Glom Filt Rate - Afr Amer 36 mL/min (>60); Glucose 172 mg/dL (74-106); Sodium Level 137 mmol/L (136-145)
[2023-03-10 11:05] LABS: Vitamin D,25 Hydroxy 29.4 ng/mL
[2023-03-10 11:06] LABS: Protein, Urine (Random) 108.6 mg/dL (<11.9); Protein:Creat Ratio 1227 mg/g CRE (0-200)
== END | disposition home or self-care (01) ==
PROVIDERS: PCP Family Medicine; Referring Provider Internal Medicine Nephrology; Visit Provider Internal Medicine Nephrology
DX: N18.32 Chronic kidney disease, stage 3b (principal)
CPT/HCPCS: 36415; 80069; 82306; 82570; 83970; 84156; 85027

== ENCOUNTER 2023-09-23 22:28 | Observation (INO) | payer MEDICARE, SELFPAY ==
[2023-09-23 22:28] VITALS: BP 136/52; PULSE 60; RESP 16; TEMP 36.9; O2SAT 98; BMI 32.7
--- NOTE | 2023-09-23 23:09 | RAD_ITS ---
INDICATION: pain EXAMINATION/TECHNIQUE: X-RAY - BILATERAL XR Hips Bilateral with Pelvis when performed; 2 Views COMPARISON: 11/06/2019. FINDINGS: SOFT TISSUES: Vascular calcifications. BONES/JOINTS: No fracture or dislocation. Stable bilateral total hip arthroplasty hardware. No erosive changes. RAD/Hips B/L min 2 views w/ Pelvis IMPRESSION: No acute abnormality. Electronically Signed: Paul Nick DO at 0:20 EST ,
--- NOTE | 2023-09-23 23:09 | CT_ITS ---
INDICATION: mechanical fall EXAMINATION: CT BRAIN - CT Head or Brain W/O Contrast Injection TECHNIQUE: Multiple axial images were obtained of the head with sagittal and coronal reconstructed images. Individualized dose optimization techniques were used for this CT. IV contrast dosage and agent: None. COMPARISON: None. FINDINGS: BRAIN PARENCHYMA: No evidence of an acute infarct or intracranial hemorrhage. No evidence of a mass. White matter changes consistent with mild chronic microvascular disease. CSF SPACES: The ventricles, sulci and subarachnoid cisterns are appropriate for age. CALVARIUM, SKULL BASE, PARANASAL SINUSES AND MASTOID AIR CELLS: No fracture. Mastoid air cells are clear. Visualized paranasal sinuses are unremarkable. ORBITS: The globes, extraocular muscles, optic nerves and retrobulbar fat are unremarkable. CT/Brain/Head without Contrast IMPRESSION: No fracture or acute intracranial abnormality. Electronically Signed: Paul Nick DO at 0:26 EST ,
[2023-09-23 23:30] LABS: Absolute Lymphocyte Count 0.45 X10^3/uL (0.83-4.51); Absolute Neutrophil Count 9.7 X10^3/uL (2.0-7.7); Basophil# 0.03 X10^3/uL; Basophil% 0.3 % (0-1); Eosinophil# 0.03 X10^3/uL; Eosinophils% 0.3 % (0-5); Hematocrit 33.6 % (37-47); Hemoglobin 11.2 g/dL (12.0-15.0); Lymphocyte # 0.45 X10^3/ul (0.83-4.51); Lymphocyte % 4.1 % (19-41); Mean Corp Hgb Conc 33.3 g/dL (32-36); Mean Corpuscular Hgb 29.3 pg (27.0-32.0); Mean Platelet Vol. 11.8 fl (6.2-12.0); Monocyte% 6.4 % (0-10); NRBC Flagged by Analyzer 0 % (0-5); Neutrophil # 9.71 X10^3/uL (2.7-7.7); Neutrophil % 88.4 % (47-70); POSITIVE DIFFERENTIAL YES; Platelet Count 248 K/mm3 (150-450); RBC Distribution Width CV 12.5 % (11.6-14.6); RBC Distribution Width SD 40.2 fl (35.1-43.9); Red Blood Count 3.82 M/mm3 (4.2-5.4)
[2023-09-23 23:47] LABS: Mucous, Urine 0 SEEN /hpf (<or=2+); Squamous Epithelial Cells - UA 0 SEEN /hpf (5-10)
[2023-09-23 23:51] LABS: Color, Urine Yellow (Yellow); Glucose, Dipstick 1000 mg/dl (Normal); Ketone-Dipstick Negative (Negative); Leukocyte Esterase-Dipstick 500 /ul (Negative); Nitrite-Dipstick Positive (Negative); Occult Blood-Urine 50 /ul (Negative); Protein-Dipstick 30 mg/dl (Negative); Urine Bilirubin Dipstick Negative (Negative); Urine Clarity Clear (Clear); Urine Urobilinogen Normal (Normal)
[2023-09-23 23:55] LABS: AST(SGOT) 16 U/L (15-37); Alanine Aminotransfer ALT/SGPT 21 U/L (13-56); Albumin, Serum 2.9 g/dL (3.2-5.0); Alkaline Phosphatase 111 U/L (45-117); Bilirubin, Direct 0.16 mg/dL (0.00-0.30); Globulin 4.2 g/dL (2.2-4.2); Protein, Total 7.1 g/dL (6.4-8.2)
[2023-09-23 23:58] LABS: Bacteria 4+ /hpf (None Seen); Red Blood Cells-Urine 10-25 SEEN /hpf (0-5); White Blood Cells >100 SEEN /hpf (0-5)
[2023-09-24] VITALS (7 sets, daily range): BP systolic 114–185; BP diastolic 44–77; PULSE 60–80; RESP 11–18; TEMP 36.2–37.3; O2SAT 92–99; BMI 33.1
[2023-09-24 00:12] LABS: Ammonia < 10.0 umol/L (11-32)
[2023-09-24 00:12] LABS: Anion Gap 11 (5-15); BUN 82 mg/dL (7-18); BUN/Creat Ratio 28.2 RATIO (10-20); Calcium,Total 8.3 mg/dL (8.5-10.1); Chloride 89 mmol/L (98-107); Creatinine, Serum 2.91 mg/dL (0.55-1.02); EST Glomerular Filtration Rate 17 mL/min (>60); Est Glom Filt Rate - Afr Amer 20 mL/min (>60); Glucose 729 mg/dL (74-106); Potassium 4.1 mmol/L (3.5-5.1); Sodium Level 121 mmol/L (136-145)
[2023-09-24] MEDS: Ceftriaxone 1 GM/50 ML BAG IV ×2 (00:22→09:16)
[2023-09-24] MEDS: 0.9% Normal Saline (1000mL) 1,000 ML 999 ML IV (00:23)
[2023-09-24 00:46] LABS: Blood Gas Specimen Type VEN; O2 Delivery Device Room Air; SITE Not entered; VBG BASE EXCESS -6 mmol/L (-1.0-3.5); VBG Bicarbonate 20 mmol/L (22-26); VBG PO2 35 mmHg (25-40); VBG SO2 64 % (50-70); VBG TCO2 21 mmol/L (23-33); VBG pCO2 37.1 mmHg (41-51); VBG pH 7.33 (7.32-7.42)
--- NOTE | 2023-09-24 01:13 | HP.PCM.HOS_ITS ---
HPI - General General Date of Admission: 09/24/23 Date of Service: 09/24/23 Chief Complaint: Falls, confusion, lethargy. 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 In the ED she notes feeling improvement and is more alert and at baseline per family following ED interventions. She notes she was having increased hesitancy, frequency and sensation of pressure prompting PCP evaluation on the prior to with possibly in office urinalysis that was concerning with start of ciprofloxacin on Friday however she denies having a girl with culture taken at that time. Workup in the ED included T98.4, heart 60, BP 136/52, respiratory rate 16, 98% on room air, CBC with WBC 11, hemoglobin 11.2, MCV 88, platelet 248 with left shift and lymphopenia, unremarkable hepatic profile, BMP with sodium 121, chloride 89, BUN/creatinine 82/2.91, glucose 729, calcium 8.3, ammonia level less than 10, TSH 0.70, urinalysis with specific gravity 1.010, protein 30, urine glucose 1000, negative ketone, occult blood 50, positive nitrite, leukocyte esterase 500 with urine RBCs 10-25 and urine WBCs greater than 100 with 4+ urine bacteria, urine culture pending per ED, VBG with pH 7.33, pO2 35, HCO3 20, total CO2 21 on room air, acetone negative, CT brain w ith no acute intracranial findings, plain film bilateral hip and pelvis with no acute abnormalities. In the ED patient ministered normal saline bolus as well as IV Rocephin and short acting insulin 20 u x 1. [facility] Medical History Age related osteoporosis Anemia Anxiety Arthritis Bilateral primary osteoarthritis of knee Cardiac murmur Carpal tunnel syndrome Cellulitis Depression Dermatitis Diabetes Edema Edema of both lower extremities Femoral neck fracture Fracture of femur, subcapital, right, closed Hip fracture requiring operative repair History of diabetes mellitus History of non-ST elevation myocardial infarction (NSTEMI) (03/21/21) History of renal insufficiency Open wound of left lower extremity Osteoarthritis Presence of cardiac pacemaker Rheumatoid arthritis Rheumatoid arthritis Sick sinus syndrome Traumatic ulcer of left lower leg Type 2 diabetes mellitus without complications Ulcer of right lower extremity with fat layer exposed Venous stasis dermatitis of both lower extremities Home Medications ferrous sulfate 325 mg (65 mg iron) tablet 325 mg PO DAILY supplement 08/14/17 [History Last Taken 03/20/21] alendronate 70 mg tablet 70 mg PO MO BONES 08/10/20 [History Last Taken 2 Weeks Ago ~03/07/21] furosemide 40 mg tablet 40 mg PO DAILY diuretic 11/09/20 [History Last Taken 03/21/21] blood sugar diagnostic ([employer] Verio test strips) #100 ea 03/27/21 [Rx Last Taken Unknown] pramipexole 1 mg tablet 2 mg PO QHS rls 05/11/21 [History Last Taken Unknown] propranolol 40 mg tablet 20 mg PO BID anxiety 06/29/21 [History Last Taken Unknown] vitamin M40-uxzfzsepw factor 1 tab PO/SL DAILY supplement 11/08/21 [History Last Taken Unknown] flash glucose scanning reader ([employer] 2 [place]) #2 ea 12/17/21 [Rx Last Taken Unknown] oxycodone 10 mg tablet 10 mg PO 4X/DAY chronic pain 03/20/22 [History Last Taken Unknown] pen needle, diabetic 32 gauge x 5/32 (BD Ultra-Fine Tracee Pen Needle) #100 ea 06/02/23 [Rx Last Taken Unknown] ciprofloxacin HCl 250 mg tablet 250 mg PO Q12H 09/24/23 [History Last Taken Unknown] insulin lispro protamine-lispro 100 unit/mL (50-50) subcutaneous pen (Humalog Mix 50-50 KwikPen) 11 unit subcut BID t2dm 09/24/23 [History Last Taken Unknown] metolazone 2.5 mg tablet 2.5 mg PO DAILY 09/24/23 [History Last Taken Unknown] Allergy/AdvReac Type Severity Reaction Status Date / Time finerenone [From Kerendia] AdvReac Severe Other Verified 09/23/23 22:33 Family History Mother Diabetes Father Diabetes Surgical History History of back surgery History of gastric bypass History of total left hip replacement History of total right hip replacement Social History household members: other details: Lives with her son. Smoking Status: Never smoker alcohol intake: never substance use type: does not use ROS ROS Narrative Admission Review of Systems: CONSTITUTIONAL: No weight loss, fever, chills, + weakness or fatigue. HEENT: Eyes: No visual loss, blurred vision, double vision or yellow sclerae. Ears, Nose, Throat: No hearing loss, sneezing, congestion, runny nose or sore throat. SKIN: No rash or itching, lesions, wounds. CARDIOVASCULAR: No chest pain, chest pressure or chest discomfort, palpitations, edema, orthopnea, syncopal events. RESPIRATORY: No shortness of breath, cough or sputum, wheezing, hemoptysis. GASTROINTESTINAL: No anorexia, nausea, vomiting or diarrhea, abdominal pain, melena, BRBPR. GENITOURINARY: + Dysuria, frequency, hesitancy, suprapubic discomfort. NEUROLOGICAL: + Transient confusion. No headache, dizziness, syncope, paralysis, ataxia, numbness or tingling in the extremities, focal weakness, change in bowel or bladder control, seizure. MUSCULOSKELETAL: + muscle, back pain, joint pain or stiffness. HEMATOLOGIC: + anemia, easy bleeding/bruising. LYMPHATICS: No enlarged nodes. No history of splenectomy. PSYCHIATRIC: + history of depression and anxiety. ENDOCRINOLOGIC: No reports of sweating, cold or heat intolerance. No polyuria or polydipsia. ALLERGIES: No history of asthma, hives, eczema or rhinitis. Vital Signs Vital Signs Vital Signs: 09/23/23 22:28 09/23/23 22:45 09/24/23 00:28 Temperature 98.4 F Temperature Source Temporal Pulse Rate 60 64 Respiratory Rate 16 11 L Respiratory Effort Normal Non-Labored Respiratory Depth Normal Respiratory Pattern Normal Blood Pressure 136/52 H 149/70 H Blood Pressure Mean 80 96 Pulse Ox 98 97 Oxygen Delivery Method Room Air Room Air Room Air Weight Weight: 162 lb 2.382 oz Body Mass Index (BMI) 32.7 Physical Exam Narrative Physical Examination: General: Awake, alert, oriented currently to self, place, month and recent events, significantly improved since initial ED arrival, family report that she is currently back at her baseline, cooperative, seated upright in the ED bed, fatigued. Skin: Normal color, normal turgor, no icterus, no cyanosis except for occasional staged ecchymoses, abrasion as well as right lower extremity circumferential stasis wounds with no foul odor or marked drainage and significant stasis skin changes as well. HEENT: AT/NC, EOMI, PERRLA, dry MM, no carotid bruits or JVD noted. Lungs: Diminished, greater bases, appropriate effort no rales, ronchi or wheezing. Heart: Currently regular rate and rhythm; no gallop, rub audible. Abdomen: Soft, obese, NTTP except mild discomfort with suprapubic palpation, ND, hyperactive BS, no HSM. Extremities: No cyanosis, no clubbing, see skin, chronic distal edema present. Neurological: Patient awake, alert, oriented as noted, improved, cognitive function per discussion with family now baseline intact; pupils equally reactive to light and accommodation, cranial nerves grossly normal, moving all 4 extremities, no focal deficits, strength moderately to severely globally decreased. Psychiatric: Affect appears fatigued, ill appearing, no acute evidence of depressive or anxiety feelings but does have underlying history. Results Lab / Micro Data 09/23/23 22:45 09/23/23 22:45 Labs: Laboratory Results - last 24 hr 09/23/23 22:45: WBC 11.0, RBC 3.82 L, Hgb 11.2 L, Hct 33.6 L, MCV 88.0, MCH 29.3, MCHC 33.3, RDW Std Deviation 40.2, RDW Coeff of Fady 12.5, Plt Count 248, MPV 11.8, Immature Gran % (Auto) 0.500, Neut % (Auto) 88.4 H, Lymph % (Auto) 4.1 L, [place] % (Auto) 6.4, Eos % (Auto) 0.3, Baso % (Auto) 0.3, Absolute Neuts (auto) 9.7 H, Absolute Lymphs (auto) 0.45 L, Nucleated RBC % 0, Sodium 121 L, Potassium 4.1, Chloride 89 L, Carbon Dioxide 21.0, Anion Gap 11, BUN 82 H, Creatinine 2.91 H, Estim Creat Clear Calc 14.50, Est GFR (MDRD) Af Amer 20 L, Est GFR (MDRD) Non-Af 17 L, BUN/Creatinine Ratio 28.2 H, Glucose 729 H*, Calcium 8.3 L, Total Bilirubin 0.40, Direct Bilirubin 0.16, AST 16, ALT 21, Alkaline Phosphatase 111, Total Protein 7.1, Albumin 2.9 L, Globulin 4.2, TSH 0.70, Acetone Level NEGATIVE 09/23/23 23:26: Ammonia < 10.0 L 09/23/23 23:36: Urine Color Yellow, Urine Clarity Clear, Urine pH 6.0, Ur Specific [place] 1.010, Urine Protein 30 H, Urine Glucose (UA) 1000 H, Urine Ketones Negative, Urine Occult Blood 50 H, Urine Nitrite Positive H, Urine Bilirubin Negative, Urine Urobilinogen Normal, Ur Leukocyte Esterase 500 H, Urine RBC 10-25 SEEN, Urine WBC >100 SEEN, Ur Squamous Epith Cells 0 SEEN, Urine Bacteria 4+, Urine Mucus 0 SEEN ABG Data ABG results: ABG 09/24/23 00:43 Specimen Type LANCE Sample Site Not entered VBG pH 7.33 VBG pO2 35 VBG HCO3 20 L VBG Total CO2 21 L VBG O2 Sat (Calc) 64 VBG Base Excess -6 L POC Mix VBG pCO2 Pt Tmp 37.1 L O2 Delivery Device Room Air Imaging Radiology Impression Brain CT 09/23/23 23:09 IMPRESSION: No fracture or acute intracranial abnormality. Electronically Signed: Paul Nick DO at 0:26 EST , Hip/Pelvis X-Ray 09/23/23 23:09 IMPRESSION: No acute abnormality. Electronically Signed: Paul Nick DO at 0:20 EST , Assessment & Plan Assessment/Plan (1) UTI (urinary tract infection): PLAN: Plan The patient is a 78 y/o F w/ PMHx: Obesity, RLS, Chronic anemia, Anxiety and Depession, Hx Sick Sinus Syndrome s/p pacemaker, Rheumatoid arthritis, HTN, HLD, Diabetes mellitus type II w/ chronic RLE stasis wounds, Presumed nonobstructive CAD w/ Hx NSTEMI, CKD stage III unclear subtype who presents to the [facility] ED on 09/24/23 with history of mechanical fall which patient did not even recall with no specific loss of consciousness but family is concerned that she may have in fact hit her head and passed out with the event reportedly sleeping most of the day prior with significant fatigue and lethargy with onset of also concurrent confusion starting at approximately 8 PM the evening prior prompting eventual ED evaluation. #1. Acute Encephalopathy with Mechanical fall, debility secondary to Acute Complicated Urinary Tract Infection with failed outpatient abx therapy, NATI and Electrolyte disturbances as noted #2, #3: Will admit to MS telemetry, UA upon ED evaluation remarkable, pending UCx, continue judicious IVFs, monitor I/Os, continue IV Rocephin w/ transition as able pending sensitivities and speciation. PT/OT/CM consultation for discharge planning. #2. Acute kidney injury on CKD stage III unclear subtype: Secondary to acute presentation as noted, decreased oral intake, possibly nephrotoxic regimen concurrently. Admission BUN/Cr 82/2.91, prior baseline creatinine noted to be 1.4-1.9 primarily, last noted 03/10/23 Cr 1.75. Will hydrate, hold nephrotoxic medications and repeat chemistry in AM. If no improvement would plan FeNa assessment. #3. Hyponatremia, component of #4 given notable hyperglycemia; however, also suspect a hypovolemic component: Admission sodium 121, chloride 89, corrected Na level for hyperglycemia improved; however, significant NATI concurrently in the acute setting of infection, will continue hydration, trend CMP. #4. Diabetes mellitus type II with significant hyperglycemia, possibly HHS complicated by chronic right lower extremity stasis diabetic wounds: Hemoglobin A1c requested, will obtain serum osmolality, acetone level per ED negative, will initiate aggressive insulin sliding scale, allow ADA diet unless blood sugars trending upward and add low-dose twice daily glargine with first dose now. Will also plan on repeat BMP in a short timeline to assure not developing DKA. flavio Szymanski requested. Wound RN consulted with pending evaluation nonadherence to open region with 4 x 4, Kerlix gauze dressings. Discussed frankly with patient right lower extremity care and she has had previous encouragement and referral to wound care but has been resistant to go thus again encouraged her to continue with the previous outpatient plan to be evaluated at wound care center. #5. Chronic anemia, normocytic/iron deficiency anemia: Admission hemoglobin 11.2, MCV 88, baseline hemoglobin 10-11, continue iron oral supplementation, stable, continue to trend. #6. Hypertension: Will continue patient on propranolol, holding Lasix given acute kidney injury,. IV hydralazine. #7. Hyperlipidemia: Not on regimen per current list, clarifying. #8. Obesity: Weight loss and lifestyle changes encouraged. #9. Anxiety and depression: Per current list on a regimen, clarifying, encourage continued outpatient follow-up and evaluation. #10. History sick sinus syndrome: Status post pacemaker status, encourage continued outpatient follow-up and interrogation as previously arranged unless concerns arise then may perform in-house. #6. Presumed nonobstructive CAD per cardiology notes with history of NSTEMI: Will continue aspirin, not on statin therapy, continue propranolol home regimen. #7. Rheumatoid arthritis: Not on any chronic regimen nor any chronic steroids but does have chronic oxycodone, while encephalopathic will temporally hold that once approved would reinitiate to avoid opiate withdrawal concurrently. #8. Restless leg syndrome: We will continue patient home pramipexole regimen. #9. DVT prophylaxis: Heparin. #10. CODE status: Patient HCPOA and living will are not currently in place but she notes her daughter and her son-in-law who are present would be her decision makers. Discussed CODE status at length including difference between FULL code, DNR-CCA and DNR-CC status. Following discussions about the differences in these status, requested DNR-CCA, no intubation status. Advanced Care Planning Face to Face Time: 16 minutes. Charges/Coding Visit Charges Inpatient E&M: 81942 Init Hosp L3 Procedures Hospitalists Procedures: 39581 Advncd Care Plan 30 Min
--- NOTE | 2023-09-24 01:25 | EDS_ITS ---
HPI History of Present Illness Chief Complaint: Fall Informant: patient and family Narrative Narrative: Patient is a 78-year-old female who lives at home with family. She has past medical history of insulin-dependent type 2 diabetes chronic kidney disease and hypertension. Patient states she is a night owl. She reports that she was up and around 3 in the morning of Friday night into Friday she tripped and fell while putting away her laundry. She denies striking her head or any loss of consciousness or history of bleeding disorder or blood thinner use. Patient states she was on the ground for roughly 2 hours until her grandson was able to help her up. She states following that she was able to ambulate at her baseline. She reports that then she slept all day. Family states around 7 or 8 PM the patient got up and made a sandwich however it was a strawberry and chili sandwich. Family states patient has never made any like this before and she tried to write it off as a gag however as she seemed confused she was brought in for evaluation. Patient and family state that she does get recurrent urinary tract infections and has been on ciprofloxacin for a few days which is typically helped her infections in the past [facility] Medical History Age related osteoporosis Anemia Anxiety Arthritis Bilateral primary osteoarthritis of knee Cardiac murmur Carpal tunnel syndrome Cellulitis Depression Dermatitis Diabetes Edema Edema of both lower extremities Femoral neck fracture Fracture of femur, subcapital, right, closed Hip fracture requiring operative repair History of diabetes mellitus History of non-ST elevation myocardial infarction (NSTEMI) (03/21/21) History of renal insufficiency Open wound of left lower extremity Osteoarthritis Presence of cardiac pacemaker Rheumatoid arthritis Rheumatoid arthritis Sick sinus syndrome Traumatic ulcer of left lower leg Type 2 diabetes mellitus without complications Ulcer of right lower extremity with fat layer exposed Venous stasis dermatitis of both lower extremities Home Medications ferrous sulfate 325 mg (65 mg iron) tablet 325 mg PO DAILY supplement 08/14/17 [History Last Taken 03/20/21] alendronate 70 mg tablet 70 mg PO MO BONES 08/10/20 [History Last Taken 2 Weeks Ago ~03/07/21] furosemide 40 mg tablet 40 mg PO DAILY diuretic 11/09/20 [History Last Taken 03/21/21] blood sugar diagnostic ([employer] Verio test strips) #100 ea 03/27/21 [Rx Last Taken Unknown] pramipexole 1 mg tablet 2 mg PO QHS rls 05/11/21 [History Last Taken Unknown] propranolol 40 mg tablet 20 mg PO BID anxiety 06/29/21 [History Last Taken Unknown] vitamin E91-hwpuzumpj factor 1 tab PO/SL DAILY supplement 11/08/21 [History Last Taken Unknown] flash glucose scanning reader ([employer] Ant[place] [address] [place]) #2 ea 12/17/21 [Rx Last Taken Unknown] oxycodone 10 mg tablet 10 mg PO 4X/DAY chronic pain 03/20/22 [History Last Taken Unknown] pen needle, diabetic 32 gauge x 5/32 (BD Ultra-Fine Tracee Pen Needle) #100 ea 06/02/23 [Rx Last Taken Unknown] ciprofloxacin HCl 250 mg tablet 250 mg PO Q12H 09/24/23 [History Last Taken Unknown] insulin lispro protamine-lispro 100 unit/mL (50-50) subcutaneous pen (Humalog Mix 50-50 KwikPen) 11 unit subcut BID t2dm 09/24/23 [History Last Taken Unknown] metolazone 2.5 mg tablet 2.5 mg PO DAILY 09/24/23 [History Last Taken Unknown] Allergy/AdvReac Type Severity Reaction Status Date / Time finerenone [From [facility]] AdvReac Severe Other Verified 09/23/23 22:33 Family History Mother Diabetes Father Diabetes Surgical History History of back surgery History of gastric bypass History of total left hip replacement History of total right hip replacement Social History household members: other details: Lives with her son. Smoking Status: Never smoker alcohol intake: never substance use type: does not use ROS ROS ED Constitutional Constitutional ED: Denies chills or fever(s) Eyes Eyes: Denies change in vision ENT ENT ED: Denies sore throat Cardiovascular Cardiovascular: Denies chest pain, palpitations or racing heartbeat Respiratory/Chest Respiratory/Chest: Denies cough or dyspnea Gastrointestinal Gastrointestinal: Denies abdominal pain, diarrhea, nausea or vomiting Genitourinary Genitourinary ED: Denies dysuria Musculoskeletal Musculoskeletal: Denies back pain, myalgias or neck pain Integumentary Reports other Details: Chronic right lower leg wound ; Denies rash Neurologic Neurologic: Denies headache(s) Hematologic/Lymphatic Hematologic/Lymphatic: Denies easy bleeding or easy bruising EXAM Physical Exam Const Vital Signs: 09/23/23 22:28 09/23/23 22:45 09/24/23 00:28 Temperature 98.4 F Temperature Source Temporal Pulse Rate 60 64 Respiratory Rate 16 11 L Respiratory Effort Normal Non-Labored Respiratory Depth Normal Respiratory Pattern Normal Blood Pressure 136/52 H 149/70 H Blood Pressure Mean 80 96 Pulse Ox 98 97 Oxygen Delivery Method Room Air Room Air Room Air Positive well nourished and well developed General Appearance ED: well developed HEENT HEENT Narrative: Normocephalic atraumatic. No signs of depressed or basilar skull fracture Eyes PERRL and EOMs intact bilaterally General Eye ED: Negative for scleral icterus Neck supple Neck Narrative: No midline pain with palpation no bony deformity or step-off of the cervical spine No nuchal rigidity or meningeal signs noted Chest Wall palpation of chest normal Resp normal respiratory effort and clear to auscultation bilaterally Cardio regular rate and regular rhythm Rate: other Other Details: Radial and carotid pulses are equal and symmetric GI normal to inspection, nondistended, normoactive bowel sounds, non-tender, non- distended and no masses GI Narrative: No voluntary guarding or rigidity or pulsatile mass Auscultation: normoactive bowel sounds Palpation: soft Back/Spine no CVA tenderness Extremity Extremity Narrative: Patient has chronic stasis changes to her right lower leg with venous stasis ulcers that have granulation tissue present mild surrounding erythema but no obvious signs of secondary infection. Pelvis is stable there is no shortening or external rotation of either lower extremity. However patient does have bilateral pain with palpation around the greater trochanters and in the inguinal region concerning for pubic rami fracture No bony deformity or step-off of the thoracic or lumbar spine no midline pain on palpation Patient can move her upper extremities at baseline and there is no obvious bony deformity or joint effusion noted Neuro oriented x3 and CN's II-XII intact bilaterally Neuro Narrative: Patient is awake alert and oriented to person place and time GCS is 15 Cranial nerves II through XII are grossly intact without focal neurologic deficit NIH stroke scale score of 0 Sensorium / Orientation: alert Psych mental status grossly normal Skin Skin Narrative: Chronic stasis changes with venous stasis ulcers to the right lower leg as documented above MDM MDM MDM Narrative Medical decision making narrative: Patient arrived to the ER with stable vitals and reported a mechanical fall almost 24 hours prior to arrival. Differential diagnosis is for concussion versus traumatic underlying brain injury such as subarachnoid or subdural hemato ma. With confusion there is also concern that she has a secondary infection such as UTI and with history of diabetes there is concern for DKA versus HHS. Basic blood work was obtained and shows acute on chronic kidney injury with a creatinine elevated from baseline of approximately 1.8-2.9. Her blood sugar is grossly elevated at 729. Her anion gap is technically normal as well as her bicarb and her pH is slightly down at 7.33 indicating she is approaching DKA but not and at this time. Therefore with the patient having persistent hyperglycemia and labs tending towards acute kidney injury and developing potential DKA I do not feel it is safe for her to be discharged. She will need continued IV antibiotics for the urinary tract infection that is failed outpatient therapy. This plan of care was discussed with the patient and family and they are agreeable to it and therefore the hospitalist was contacted and does agree to accept the patient at this time History & Record Review Discussion w/independent historian: Patient and Family Lab Data Attestation: I reviewed the patient's lab results. Labs: Laboratory Results - last 24 hr 09/23/23 09/23/23 09/23/23 22:45 23:26 23:36 WBC 11.0 RBC 3.82 L Hgb 11.2 L Hct 33.6 L MCV 88.0 MCH 29.3 MCHC 33.3 RDW Std Deviation 40.2 RDW Coeff of Fady 12.5 Plt Count 248 MPV 11.8 Immature Gran % (Auto) 0.500 Neut % (Auto) 88.4 H Lymph % (Auto) 4.1 L [place] % (Auto) 6.4 Eos % (Auto) 0.3 Baso % (Auto) 0.3 Absolute Neuts (auto) 9.7 H Absolute Lymphs (auto) 0.45 L Nucleated RBC % 0 Sodium 121 L Potassium 4.1 Chloride 89 L Carbon Dioxide 21.0 Anion Gap 11 BUN 82 H Creatinine 2.91 H Estim Creat Clear Calc 14.50 Est GFR (MDRD) Af Amer 20 L Est GFR (MDRD) Non-Af 17 L BUN/Creatinine Ratio 28.2 H Glucose 729 H* Calcium 8.3 L Phosphorus Magnesium Total Bilirubin 0.40 Direct Bilirubin 0.16 AST 16 ALT 21 Alkaline Phosphatase 111 Ammonia < 10.0 L Total Protein 7.1 Albumin 2.9 L Globulin 4.2 TSH 0.70 Urine Color Yellow Urine Clarity Clear Urine pH 6.0 Ur Specific [place] 1.010 Urine Protein 30 H Urine Glucose (UA) 1000 H Urine Ketones Negative Urine Occult Blood 50 H Urine Nitrite Positive H Urine Bilirubin Negative Urine Urobilinogen Normal Ur Leukocyte Esterase 500 H Urine RBC 10-25 SEEN Urine WBC >100 SEEN Ur Squamous Epith Cells 0 SEEN Urine Bacteria 4+ Urine Mucus 0 SEEN Acetone Level NEGATIVE 09/23/23 23:45 WBC RBC Hgb Hct MCV MCH MCHC RDW Std Deviation RDW Coeff of Fady Plt Count MPV Immature Gran % (Auto) Neut % (Auto) Lymph % (Auto) [place] % (Auto) Eos % (Auto) Baso % (Auto) Absolute Neuts (auto) Absolute Lymphs (auto) Nucleated RBC % Sodium Potassium Chloride Carbon Dioxide Anion Gap BUN Creatinine Estim Creat Clear Calc Est GFR (MDRD) Af Amer Est GFR (MDRD) Non-Af BUN/Creatinine Ratio Glucose Calcium Phosphorus 4.2 Magnesium 2.3 Total Bilirubin Direct Bilirubin AST ALT Alkaline Phosphatase Ammonia Total Protein Albumin Globulin TSH Urine Color Urine Clarity Urine pH Ur Specific [place] Urine Protein Urine Glucose (UA) Urine Ketones Urine Occult Blood Urine Nitrite Urine Bilirubin Urine Urobilinogen Ur Leukocyte Esterase Urine RBC Urine WBC Ur Squamous Epith Cells Urine Bacteria Urine Mucus Acetone Level ABG Data ABG results: ABG 09/24/23 00:43 Specimen Type LANCE Sample Site Not entered VBG pH 7.33 VBG pO2 35 VBG HCO3 20 L VBG Total CO2 21 L VBG O2 Sat (Calc) 64 VBG Base Excess -6 L POC Mix VBG pCO2 Pt Tmp 37.1 L O2 Delivery Device Room Air Radiography Diagnostic Testing: Clinical Impression(s) from Imaging Studies Brain CT 09/23/23 23:09 IMPRESSION: No fracture or acute intracranial abnormality. Electronically Signed: Paul Nick DO at 0:26 EST , Hip/Pelvis X-Ray 09/23/23 23:09 IMPRESSION: No acute abnormality. Electronically Signed: Paul Nick DO at 0:20 EST , Hip/pelvis x-ray as interpreted by the emergency medicine physician reveals hardware to be intact and in place with out acute fracture or dislocation Management Discussion w/another healthcare provider: Hospitalist Discharge Plan Dx/Rx/DC Orders Clinical Impression: Insulin dependent diabetes mellitus, Urinary tract infection, Acute kidney injury superimposed on chronic kidney disease, Acute hyperglycemia, Failure of outpatient treatment Disposition Disposition: Acute Care Hospital [facility] Discharge Date/Time: 09/24/23 02:49
[2023-09-24 01:47] LABS: Magnesium 2.3 mg/dL (1.6-2.6); Phosphorus 4.2 mg/dL (2.5-4.9)
[2023-09-24] MEDS: Insulin Lispro 100 UNIT/ML INSULN.PEN 20 UNIT SC (01:53)
[2023-09-24] MEDS: oxyCODONE 5 MG Tablet 10 MG PO (02:11)
[2023-09-24 02:36] LABS: Osmolality, Serum 325 mOsm/KG (280-301)
[2023-09-24] MEDS: Acetaminophen 325 MG Tablet 650 MG PO ×2 (03:33→07:28)
[2023-09-24] MEDS: 0.9% Normal Saline (500mL Bag) 500 ML 999 ML IV (03:41)
[2023-09-24] MEDS: Insulin Glargine-YFGN 100 UNIT/ML Pen 10 UNIT SC ×3 (03:47→22:02)
[2023-09-24] MEDS: Pramipexole Di-HCl 1 MG Tablet 2 MG PO ×2 (03:47→21:59)
[2023-09-24 04:08] LABS: Absolute Lymphocyte Count 0.57 X10^3/uL (0.83-4.51); Basophil# 0.02 X10^3/uL; Basophil% 0.2 % (0-1); Eosinophil# 0.03 X10^3/uL; Eosinophils% 0.3 % (0-5); Hematocrit 33.1 % (37-47); Hemoglobin 11.2 g/dL (12.0-15.0); Lymphocyte # 0.57 X10^3/ul (0.83-4.51); Lymphocyte % 5.1 % (19-41); Mean Corp Hgb Conc 33.8 g/dL (32-36); Mean Corpuscular Hgb 29.3 pg (27.0-32.0); Mean Corpuscular Volume 86.6 fL (81-99); Mean Platelet Vol. 10.7 fl (6.2-12.0); Monocyte# 0.54 X10^3/uL; Monocyte% 4.8 % (0-10); NRBC Flagged by Analyzer 0 % (0-5); Neutrophil # 10.01 X10^3/uL (2.7-7.7); Neutrophil % 89.1 % (47-70); POSITIVE DIFFERENTIAL YES; Platelet Count 239 K/mm3 (150-450); RBC Distribution Width CV 12.3 % (11.6-14.6); RBC Distribution Width SD 39.3 fl (35.1-43.9); Red Blood Count 3.82 M/mm3 (4.2-5.4); White Blood Count 11.2 K/mm3 (4.4-11.0)
[2023-09-24] MEDS: 0.9% Normal Saline (1000mL) 1,000 ML 100 ML IV (04:19)
[2023-09-24 04:37] LABS: ALB/GLOB Ratio 0.8 RATIO (0.9-2.4); AST(SGOT) 13 U/L (15-37); Alanine Aminotransfer ALT/SGPT 21 U/L (13-56); Alkaline Phosphatase 107 U/L (45-117); Anion Gap 11 (5-15); BUN 76 mg/dL (7-18); BUN/Creat Ratio 29.7 RATIO (10-20); Calcium,Total 8.5 mg/dL (8.5-10.1); Chloride 95 mmol/L (98-107); Creatinine, Serum 2.56 mg/dL (0.55-1.02); EST Glomerular Filtration Rate 19 mL/min (>60); Est Glom Filt Rate - Afr Amer 23 mL/min (>60); Estimated Creatinine Clearance 16.59 ml/min; Glucose 285 mg/dL (74-106); Potassium 3.6 mmol/L (3.5-5.1); Sodium Level 128 mmol/L (136-145)
[2023-09-24 04:43] LABS: Bedside Glucose 337 mg/dL (74-106)
[2023-09-24] MEDS: Insulin Lispro 100 UNIT/ML INSULN.PEN SC ×4 (06:31→22:01)
[2023-09-24 06:54] LABS: Bedside Glucose 205 mg/dL (74-106)
[2023-09-24 07:12] LABS: Hemoglobin A1c 11.1 % (3.8-5.6)
[2023-09-24] MEDS: oxyCODONE 5 MG Tablet PO ×3 (07:28→22:01)
[2023-09-24] MEDS: Ferrous Sulfate 325 MG Tablet PO (09:13)
[2023-09-24] MEDS: Propranolol 10 MG Tablet 20 MG PO ×2 (09:13→22:00)
[2023-09-24] MEDS: Aspirin 81 MG TAB.CHEW PO (09:13)
[2023-09-24] MEDS: Heparin Injection (Vial) 5,000 UNIT/ML VIAL 5000 UNIT SC ×2 (09:13→21:59)
--- NOTE | 2023-09-24 11:02 | WOUNDNOTE ---
wound photo: right lower leg
--- NOTE | 2023-09-24 11:03 | WOUNDNOTE ---
wound photo: right lower leg
[2023-09-24 11:10] LABS: Bedside Glucose 236 mg/dL (74-106)
--- NOTE | 2023-09-24 15:06 | CASEMGMT ---
JOSE CASAS Assessment Face to Face with patient for initial transition planning/care coordination assessment. JOSE CASAS introduced self and role at [facility], pt voices understanding. Pt is A&Ox4 and is resting comfortably in bed and is calm. Pt daughter Juliann at bedside. Care providers, pharmacy, and demographics verified. Admitting dx: UTI, NATI, Hyperglycemia PCP: Pat Specialists: (Endocrinology), Areli (Nephrology), Javeir (Cardiology) Preferred Pharmacy: [facility] [place] Insurance: [facility] Prescription Benefit: Yes LNOK: Juliann Troy (Daughter), Cesar Garcia (Son) Living Arrangements: Pt lives with her son and GS (33) in a two story home with a BM and HR throughout. Pt has a FFSU and does not use the stairs. Pt states there are 3-4 steps to enter the home but does not need to use as there is also a ramp to enter the home. ADLs/IADLs: States ind Transportation: Pt does not drive. Pt GS and daughter drive her DME: Pt uses a rollator. Pt has a cane and walker. Shower chair with GB. Pt has a continuous BGM and states that she has enough supplies to check her BS. HHC/SNF: Hx at [facility] 3-4 years ago for a hip Fx. Pt states she was seen by HHC around that same time but could not recall the agency. Pt denied that the HHC was [facility]. Pt?s goal: Home with HHC Plan: Pt states that she was seen by therapy today. There is currently no note in at this time. Pt states that she was able to walk some in the room. Pt questioned about OP therapy and HHC and pt and pt daughter state that they think home with HHC would be the better option at this time. MORENO Chandler to make a list of local in-network HHC agencies for pt. JOSE Lang CM updated on plan. CM to follow therapy and progression during stay. Ruben Karimi RN, CM
--- NOTE | 2023-09-24 15:16 | PN_ITS ---
Subjective Subjective Patient seen and examined. She complained of generalised pain and said she felt weak. She denied any fever, chills, cough, chest pain, palpitations, dizziness, nausea, vomiting or any other symptoms. Review of systems is otherwise negative. Objective Data Objective Data Vital Signs: Vital Signs Temp Pulse Resp BP Pulse Ox O2 Del Method 98.6 F 61 14 123/47 H 96 Room Air 09/24/23 14:00 09/24/23 14:00 09/24/23 14:00 09/24/23 14:00 09/24/23 14:00 09/24/23 14:00 Oxygen Delivery Method Room Air Weight: 164 lb 3.91 oz Body Mass Index (BMI) 33.1 Intake & Output: Intake and Output for Last 24 Hours 09/22/23 09/23/23 09/24/23 23:59 23:59 23:59 Intake Total 1720 / 1720 Output Total 100 / 100 Balance 1620 / 1620 Lab / Micro Data 09/24/23 03:59 09/24/23 03:59 Labs: Laboratory Results - last 24 hr 09/23/23 22:45: WBC 11.0, RBC 3.82 L, Hgb 11.2 L, Hct 33.6 L, MCV 88.0, MCH 29.3, MCHC 33.3, RDW Std Deviation 40.2, RDW Coeff of Fady 12.5, Plt Count 248, MPV 11.8, Immature Gran % (Auto) 0.500, Neut % (Auto) 88.4 H, Lymph % (Auto) 4.1 L, [place] % (Auto) 6.4, Eos % (Auto) 0.3, Baso % (Auto) 0.3, Absolute Neuts (auto) 9.7 H, Absolute Lymphs (auto) 0.45 L, Nucleated RBC % 0, Sodium 121 L, Potassium 4.1, Chloride 89 L, Carbon Dioxide 21.0, Anion Gap 11, BUN 82 H, Creatinine 2.91 H, Estim Creat Clear Calc 14.50, Est GFR (MDRD) Af Amer 20 L, Est GFR (MDRD) Non-Af 17 L, BUN/Creatinine Ratio 28.2 H, Glucose 729 H*, Calcium 8.3 L, Total Bilirubin 0.40, Direct Bilirubin 0.16, AST 16, ALT 21, Alkaline Phosphatase 111, Total Protein 7.1, Albumin 2.9 L, Globulin 4.2, TSH 0.70, Acetone Level NEGATIVE 09/23/23 23:26: Ammonia < 10.0 L 09/23/23 23:36: Urine Color Yellow, Urine Clarity Clear, Urine pH 6.0, Ur Specific [place] 1.010, Urine Protein 30 H, Urine Glucose (UA) 1000 H, Urine Ketones Negative, Urine Occult Blood 50 H, Urine Nitrite Positive H, Urine Bilirubin Negative, Urine Urobilinogen Normal, Ur Leukocyte Esterase 500 H, Urine RBC 10-25 SEEN, Urine WBC >100 SEEN, Ur Squamous Epith Cells 0 SEEN, Urine Bacteria 4+, Urine Mucus 0 SEEN 09/23/23 23:45: Phosphorus 4.2, Magnesium 2.3 09/24/23 01:37: Serum Osmolality 325 H 09/24/23 03:54: POC Glucose 337 H 09/24/23 03:59: WBC 11.2 H, RBC 3.82 L, Hgb 11.2 L, Hct 33.1 L, MCV 86.6, MCH 29.3, MCHC 33.8, RDW Std Deviation 39.3, RDW Coeff of Fady 12.3, Plt Count 239, MPV 10.7, Immature Gran % (Auto) 0.500, Neut % (Auto) 89.1 H, Lymph % (Auto) 5.1 L, [place] % (Auto) 4.8, Eos % (Auto) 0.3, Baso % (Auto) 0.2, Absolute Neuts (auto) 10.0 H, Absolute Lymphs (auto) 0.57 L, Nucleated RBC % 0, Sodium 128 L, Potassium 3.6, Chloride 95 L, Carbon Dioxide 22.0, Anion Gap 11, BUN 76 H, Creatinine 2.56 H, Estim Creat Clear Calc 16.59, Est GFR (MDRD) Af Amer 23 L, Est GFR (MDRD) Non-Af 19 L, BUN/Creatinine Ratio 29.7 H, Glucose 285 H, Hemoglobin A1c 11.1 H, Calcium 8.5, Total Bilirubin 0.40, AST 13 L, ALT 21, Alkaline Phosphatase 107, Total Protein 7.0, Albumin 3.0 L, Globulin 4.0, Albumin/Globulin Ratio 0.8 L 09/24/23 06:28: POC Glucose 205 H 09/24/23 10:49: POC Glucose 236 H Micro: Microbiology 09/23/23 23:36 Urine Catheter - Catheter Urine Culture - Preliminary Gram negative aimee ABG Data ABG results: ABG 09/24/23 00:43 Specimen Type LANCE Sample Site Not entered VBG pH 7.33 VBG pO2 35 VBG HCO3 20 L VBG Total CO2 21 L VBG O2 Sat (Calc) 64 VBG Base Excess -6 L POC Mix VBG pCO2 Pt Tmp 37.1 L O2 Delivery Device Room Air Radiography Diagnostic Testing: Radiology Impression Brain CT 09/23/23 23:09 IMPRESSION: No fracture or acute intracranial abnormality. Electronically Signed: Paul NickDO at 0:26 EST , Hip/Pelvis X-Ray 09/23/23 23:09 IMPRESSION: No acute abnormality. Electronically Signed: Paul Nick DO at 0:20 EST , Physical Exam Const alert Constitutional Narrative: frail, weak General Appearance: cooperative HEENT normocephalic and head/scalp atraumatic Mouth: dry mucous membranes Eyes PERRL and EOMs intact bilaterally Neck no lymphadenopathy and supple Lymph Lymphatic: no lymphadenopathy noted and no lymphedema noted Resp Resp Narrative: diminished breath sounds bibasally, no wheezes or crackles. Cardio regular rate, regular rhythm, S1 normal heart sound, S2 normal heart sound and no murmurs GI normal to inspection, nondistended, normoactive bowel sounds, soft to palpation, non-tender and non-distended Extremity normal capillary refill, no clubbing, cyanosis or edema and no calf tenderness General Extremity: no tenderness to palpation of joints or extremities Skin General Skin Exam: no breakdown Neuro CN's II-XII intact bilaterally, no focal motor deficits, no sensory deficits noted and deep tendon reflexes 2+ bilaterally Motor Exam: strength 5/5 throughout and general weakness Psych thought process normal, cooperative and affect normal Appearance: appropriate Assessment & Plan Assessment/Plan (1) UTI (urinary tract infection): PLAN: Plan #Acute encephalopathy due to UTI * Currently on IV ceftriaxone. Urine culture is pending. * Failed oral outpatient therapy. Hydrate gently with IV fluids. * PT OT on board. Fall precautions. * #NATI on CKD stage III: Creatinine is improving. Creatinine was 2.9 on admission with a baseline of around 1.4. Continue gentle hydration and monitor. Cr is down to 2.56 #Hyponatremia: * Likely due to hyperglycemia. * Sodium is now 128 from 120 on admission. Resolving. Will monitor. * Continue gentle hydration with IV fluids. #Debility due to mechanical fall: PT OT on board. Fall precautions. #Type 2 diabetes mellitus with hyperglycemia * Resolved. On Lantus. Insulin sliding scale. Checks ACHS. * #Hypertension: On propranolol. Lasix on hold due to NATI. IV hydralazine as needed. #History of sick sinus syndrome: S/p pacemaker. #CAD: On aspirin and propranolol. Not on statin. Unclear why. #Restless leg syndrome: On pramipexole DVT prophylaxis: heparin Charges/Coding Visit Charges Inpatient E&M: 35525 Subs Hosp L2
--- NOTE | 2023-09-24 16:00 | CASEMGMT ---
Discharge Planning A list of HH providers including quality and resource use data and consistent with the patient's preferred geographic region, medical needs, and insurance network was created in [employer].? This list was provided to the RN YESSENIA. Geraldine Steven, Discharge Planning Asst.
[2023-09-24] MEDS: Glucerna Shake 120 ML LIQUID PO ×2 (16:36→21:59)
[2023-09-24 16:54] LABS: Bedside Glucose 167 mg/dL (74-106)
[2023-09-24 22:43] LABS: Bedside Glucose 217 mg/dL (74-106)
[2023-09-25 02:30] VITALS: BP 148/53; PULSE 60; RESP 16; TEMP 37.1; O2SAT 95
[2023-09-25 05:26] VITALS: BMI 34.2
[2023-09-25] MEDS: Insulin Lispro 100 UNIT/ML INSULN.PEN SC ×4 (06:37→21:27)
[2023-09-25 06:58] LABS: Bedside Glucose 273 mg/dL (74-106)
[2023-09-25 07:29] VITALS: O2SAT 96
[2023-09-25 07:41] LABS: Absolute Lymphocyte Count 1.15 X10^3/uL (0.83-4.51); Absolute Neutrophil Count 7.2 X10^3/uL (2.0-7.7); Basophil# 0.03 X10^3/uL; Basophil% 0.3 % (0-1); Eosinophil# 0.08 X10^3/uL; Eosinophils% 0.9 % (0-5); Hematocrit 31.3 % (37-47); Hemoglobin 10.6 g/dL (12.0-15.0); Lymphocyte # 1.15 X10^3/ul (0.83-4.51); Lymphocyte % 12.3 % (19-41); Mean Corp Hgb Conc 33.9 g/dL (32-36); Mean Corpuscular Volume 85.8 fL (81-99); Mean Platelet Vol. 11.5 fl (6.2-12.0); Monocyte# 0.79 X10^3/uL; Monocyte% 8.5 % (0-10); NRBC Flagged by Analyzer 0 % (0-5); Neutrophil # 7.19 X10^3/uL (2.7-7.7); Neutrophil % 77.1 % (47-70); Platelet Count 259 K/mm3 (150-450); RBC Distribution Width CV 12.6 % (11.6-14.6); RBC Distribution Width SD 39.2 fl (35.1-43.9); Red Blood Count 3.65 M/mm3 (4.2-5.4); White Blood Count 9.3 K/mm3 (4.4-11.0)
[2023-09-25 07:50] VITALS: BP 155/63; PULSE 63; RESP 18; TEMP 36.8; O2SAT 94
[2023-09-25] MEDS: Aspirin 81 MG TAB.CHEW PO (07:57)
[2023-09-25] MEDS: Ferrous Sulfate 325 MG Tablet PO (07:58)
[2023-09-25] MEDS: Heparin Injection (Vial) 5,000 UNIT/ML VIAL 5000 UNIT SC ×2 (07:58→21:24)
[2023-09-25] MEDS: Glucerna Shake 120 ML LIQUID PO ×3 (07:58→17:29)
[2023-09-25] MEDS: Propranolol 10 MG Tablet 20 MG PO ×2 (07:58→21:28)
[2023-09-25 08:01] LABS: Anion Gap 9 (5-15); BUN 71 mg/dL (7-18); BUN/Creat Ratio 35.9 RATIO (10-20); Calcium,Total 8.6 mg/dL (8.5-10.1); Chloride 102 mmol/L (98-107); Creatinine, Serum 1.98 mg/dL (0.55-1.02); EST Glomerular Filtration Rate 26 mL/min (>60); Est Glom Filt Rate - Afr Amer 31 mL/min (>60); Estimated Creatinine Clearance 21.81 ml/min; Glucose 265 mg/dL (74-106); Potassium 3.3 mmol/L (3.5-5.1); Sodium Level 132 mmol/L (136-145)
[2023-09-25] MEDS: 0.9% Saline Lock 10 ML Syringe IV (10:04)
[2023-09-25] MEDS: oxyCODONE 5 MG Tablet PO ×4 (10:04→21:28)
[2023-09-25] MEDS: Insulin Glargine-YFGN 100 UNIT/ML Pen 10 UNIT SC ×2 (10:04→21:26)
[2023-09-25] MEDS: Ceftriaxone 1 GM/50 ML BAG IV (10:08)
[2023-09-25 10:10] VITALS: BP 140/52; PULSE 65; RESP 18; TEMP 36.9; O2SAT 95
[2023-09-25 11:30] LABS: Bedside Glucose 445 mg/dL (74-106)
--- NOTE | 2023-09-25 13:10 | PN_ITS ---
Subjective Subjective Patient seen and examined. He has no active complaints and had an uneventful night. SHe is feeling much better. Review of systems is otherwise negative. Objective Data Objective Data Vital Signs: Vital Signs Temp Pulse Resp BP Pulse Ox O2 Del Method O2 Flow Rate 98.5 F 65 18 140/52 H 95 Room Air 4 09/25/23 10:10 09/25/23 10:10 09/25/23 10:10 09/25/23 10:10 09/25/23 10:10 09/25/23 10:10 09/25/23 07:29 Oxygen Flow Rate (L/min) 4 Oxygen Delivery Method Room Air Weight: 169 lb 8.568 oz Body Mass Index (BMI) 34.2 Intake & Output: Intake and Output for Last 24 Hours 09/23/23 09/24/23 09/25/23 23:59 23:59 23:59 Intake Total 2970 / 2970 440 / 440 Output Total 100 / 550 1000 / 1000 Balance 2870 / 2420 -560 / -560 Lab / Micro Data 09/25/23 07:10 09/25/23 07:10 Labs: Laboratory Results - last 24 hr 09/24/23 16:33: POC Glucose 167 H 09/24/23 21:57: POC Glucose 217 H 09/25/23 06:35: POC Glucose 273 H 09/25/23 07:10: WBC 9.3, RBC 3.65 L, Hgb 10.6 L, Hct 31.3 L, MCV 85.8, MCH 29.0, MCHC 33.9, RDW Std Deviation 39.2, RDW Coeff of Fady 12.6, Plt Count 259, MPV 11.5, Immature Gran % (Auto) 0.900, Neut % (Auto) 77.1 H, Lymph % (Auto) 12.3 L, [place] % (Auto) 8.5, Eos % (Auto) 0.9, Baso % (Auto) 0.3, Absolute Neuts (auto) 7.2, Absolute Lymphs (auto) 1.15, Nucleated RBC % 0, Sodium 132 L, Potassium 3.3 L, Chloride 102, Carbon Dioxide 21.0, Anion Gap 9, BUN 71 H, Creatinine 1.98 H, Estim Creat Clear Calc 21.81, Est GFR (MDRD) Af Amer 31 L, Est GFR (MDRD) Non-Af 26 L, BUN/Creatinine Ratio 35.9 H, Glucose 265 H, Calcium 8.6 09/25/23 11:10: POC Glucose 445 H Micro: Microbiology 09/23/23 23:36 Urine Catheter - Catheter Urine Culture - Preliminary Gram negative aimee Physical Exam Const alert Constitutional Narrative: frail, weak General Appearance: cooperative HEENT normocephalic, head/scalp atraumatic, moist oral mucous membranes and oropharynx normal Eyes PERRL and EOMs intact bilaterally Neck no lymphadenopathy and supple Lymph Lymphatic: no lymphadenopathy noted and no lymphedema noted Resp Resp Narrative: diminished breath sounds bibasally, no wheezes or crackles. Cardio regular rate, regular rhythm, S1 normal heart sound, S2 normal heart sound and no murmurs GI normal to inspection, nondistended, normoactive bowel sounds, soft to palpation, non-tender and non-distended Extremity normal capillary refill, no clubbing, cyanosis or edema and no calf tenderness General Extremity: no tenderness to palpation of joints or extremities Skin General Skin Exam: no breakdown Neuro CN's II-XII intact bilaterally, no focal motor deficits, no sensory deficits noted and deep tendon reflexes 2+ bilaterally Motor Exam: strength 5/5 throughout and general weakness Psych thought process normal, cooperative and affect normal Appearance: appropriate Assessment & Plan Assessment/Plan (1) UTI (urinary tract infection): PLAN: Plan #Acute encephalopathy due to UTI * Currently on IV ceftriaxone. Urine culture growing Klebsiella pneumoniae, sensitive to ceftriaxone * Failed oral outpatient therapy. Hydrate gently with IV fluids. * PT OT on board. Fall precautions. * #NATI on CKD stage III: * Creatinine is improving. Creatinine was 2.9 on admission with a baseline of around 1.4. * Continue gentle hydration and monitor. Cr is down to 1.98 today #Hyponatremia: * Likely due to hyperglycemia. * sodium is now 132. Continue gentle hydration with IVF. * #Debility due to mechanical fall: PT OT on board. Fall precautions. #Type 2 diabetes mellitus with hyperglycemia * Resolved. On Lantus. Insulin sliding scale. Checks ACHS. * #Hypertension: On propranolol. Lasix on hold due to NATI. IV hydralazine as needed. #History of sick sinus syndrome: S/p pacemaker. #CAD: On aspirin and propranolol. Not on statin. Unclear why. #Restless leg syndrome: On pramipexole DVT prophylaxis: heparin Charges/Coding Visit Charges Inpatient E&M: 72126 Subs Hosp L2
[2023-09-25] MEDS: Potassium Chloride Oral Tablet 20 MEQ 40 MEQ PO (13:42)
[2023-09-25 14:03] LABS: Bedside Glucose 277 mg/dL (74-106)
--- NOTE | 2023-09-25 15:09 | CASEMGMT ---
RN CM in to discuss discharge planning with patient. Sister and daughter at bedside. Patient agreeable to [facility]. List of [facility] agencies provided to patient. Patient and family to review and provide preferences. CM to follow-up with patient in morning for choices. CM will continue to follow this patient and plan for a safe discharge.
[2023-09-25 16:10] VITALS: BP 117/50; PULSE 60; RESP 18; TEMP 37.4; O2SAT 95
[2023-09-25 16:29] LABS: Bedside Glucose 321 mg/dL (74-106)
--- NOTE | 2023-09-25 16:35 | NURSING ---
Report given to JOSE Pelayo at this time.
[2023-09-25 21:16] VITALS: BP 136/54; PULSE 60; RESP 18; TEMP 36.7; O2SAT 95
[2023-09-25] MEDS: Pramipexole Di-HCl 1 MG Tablet 2 MG PO (21:28)
[2023-09-25 22:58] LABS: Bedside Glucose 327 mg/dL (74-106)
[2023-09-26 03:27] VITALS: BP 126/58; PULSE 60; RESP 18; TEMP 36.6; O2SAT 94
[2023-09-26 04:30] VITALS: BMI 33.7
[2023-09-26 05:48] LABS: Absolute Lymphocyte Count 1.71 X10^3/uL (0.83-4.51); Absolute Neutrophil Count 6.7 X10^3/uL (2.0-7.7); Basophil# 0.05 X10^3/uL; Basophil% 0.5 % (0-1); Eosinophils% 3.1 % (0-5); Hematocrit 30.4 % (37-47); Hemoglobin 10.2 g/dL (12.0-15.0); Lymphocyte # 1.71 X10^3/ul (0.83-4.51); Lymphocyte % 17.5 % (19-41); Mean Corp Hgb Conc 33.6 g/dL (32-36); Mean Corpuscular Hgb 29.1 pg (27.0-32.0); Mean Corpuscular Volume 86.9 fL (81-99); Mean Platelet Vol. 10.8 fl (6.2-12.0); Monocyte# 0.89 X10^3/uL; Monocyte% 9.1 % (0-10); NRBC Flagged by Analyzer 0 % (0-5); Neutrophil # 6.72 X10^3/uL (2.7-7.7); Neutrophil % 68.6 % (47-70); Platelet Count 268 K/mm3 (150-450); RBC Distribution Width SD 41.1 fl (35.1-43.9); White Blood Count 9.8 K/mm3 (4.4-11.0)
[2023-09-26] MEDS: Acetaminophen 325 MG Tablet 650 MG PO ×2 (06:08→20:01)
[2023-09-26 06:14] LABS: Anion Gap 8 (5-15); BUN 71 mg/dL (7-18); BUN/Creat Ratio 30.3 RATIO (10-20); Calcium,Total 8.4 mg/dL (8.5-10.1); Chloride 103 mmol/L (98-107); Creatinine, Serum 2.34 mg/dL (0.55-1.02); EST Glomerular Filtration Rate 21 mL/min (>60); Est Glom Filt Rate - Afr Amer 26 mL/min (>60); Estimated Creatinine Clearance 18.31 ml/min; Glucose 118 mg/dL (74-106); Potassium 3.7 mmol/L (3.5-5.1); Sodium Level 133 mmol/L (136-145)
[2023-09-26 06:39] LABS: Bedside Glucose 132 mg/dL (74-106)
[2023-09-26 08:18] VITALS: O2SAT 94
[2023-09-26 09:27] VITALS: BP 134/49; PULSE 62; RESP 18; TEMP 37.1; O2SAT 95
[2023-09-26] MEDS: Propranolol 10 MG Tablet 20 MG PO ×2 (09:31→21:15)
[2023-09-26] MEDS: Ceftriaxone 1 GM/50 ML BAG IV (09:31)
[2023-09-26] MEDS: Ferrous Sulfate 325 MG Tablet PO (09:31)
[2023-09-26] MEDS: Heparin Injection (Vial) 5,000 UNIT/ML VIAL 5000 UNIT SC ×2 (09:31→21:10)
[2023-09-26] MEDS: Glucerna Shake 120 ML LIQUID PO ×3 (09:31→17:13)
[2023-09-26] MEDS: Aspirin 81 MG TAB.CHEW PO (09:31)
[2023-09-26] MEDS: Insulin Glargine-YFGN 100 UNIT/ML Pen 10 UNIT SC ×2 (09:31→21:13)
[2023-09-26] MEDS: oxyCODONE 5 MG Tablet PO ×4 (09:32→21:08)
--- NOTE | 2023-09-26 10:16 | CASEMGMT ---
Addendum entered by Precious Edwards 09/26/23 12:45: JOSE CASAS received call back from [facility] and they are able to accept patient with planned start of care for Friday. JOSE CASAS updated patient and discharge plan. Original Note: JOSE CASAS in to discuss [facility] preferences with patient. Patient states her preferences are as followed: 1.[facility] 2. [facility] 3. [facility] 4. [facility] 5. [facility]. JOSE CASAS called and made referral to [facility], awaiting acceptance. CM will continue to follow this patient and plan for a safe discharge.
--- NOTE | 2023-09-26 11:17 | PN_ITS ---
Subjective Subjective Patient seen and examined. She had no complaints and felt well. She was looking forward to being discharged home. She says she has been working with therapy and doing well. Review of systems otherwise negative. Objective Data Objective Data Vital Signs: Vital Signs Temp Pulse Resp BP Pulse Ox O2 Del Method O2 Flow Rate 98.7 F 62 18 134/49 H 95 Room Air 4 09/26/23 09:27 09/26/23 09:27 09/26/23 09:27 09/26/23 09:27 09/26/23 09:27 09/26/23 09:27 09/25/23 07:29 Oxygen Flow Rate (L/min) 4 Oxygen Delivery Method Room Air Weight: 167 lb 1.766 oz Body Mass Index (BMI) 33.7 Intake & Output: Intake and Output for Last 24 Hours 09/24/23 09/25/23 09/26/23 23:59 23:59 23:59 Intake Total 2970 / 2970 740 / 740 50 / 50 Output Total 100 / 550 1200 / 1200 500 / 500 Balance 2870 / 2420 -460 / -460 -450 / -450 Lab / Micro Data 09/26/23 05:25 09/26/23 05:25 Labs: Laboratory Results - last 24 hr 09/25/23 11:10: POC Glucose 445 H 09/25/23 13:41: POC Glucose 277 H 09/25/23 16:07: POC Glucose 321 H 09/25/23 21:21: POC Glucose 327 H 09/26/23 05:25: WBC 9.8, RBC 3.50 L, Hgb 10.2 L, Hct 30.4 L, MCV 86.9, MCH 29.1, MCHC 33.6, RDW Std Deviation 41.1, RDW Coeff of Fady 13.0, Plt Count 268, MPV 10.8, Immature Gran % (Auto) 1.200 H, Neut % (Auto) 68.6, Lymph % (Auto) 17.5 L, [place] % (Auto) 9.1, Eos % (Auto) 3.1, Baso % (Auto) 0.5, Absolute Neuts (auto) 6.7, Absolute Lymphs (auto) 1.71, Nucleated RBC % 0, Sodium 133 L, Potassium 3.7, Chloride 103, Carbon Dioxide 22.0, Anion Gap 8, BUN 71 H, Creatinine 2.34 H , Estim Creat Clear Calc 18.31, Est GFR (MDRD) Af Amer 26 L, Est GFR (MDRD) Non- Af 21 L, BUN/Creatinine Ratio 30.3 H, Glucose 118 H, Calcium 8.4 L 09/26/23 06:10: POC Glucose 132 H Micro: Microbiology 09/23/23 23:36 Urine Catheter - Catheter Urine Culture - Preliminary Gram negative aimee Physical Exam Const alert Constitutional Narrative: frail, weak General Appearance: cooperative HEENT normocephalic, head/scalp atraumatic, moist oral mucous membranes and oropharynx normal Eyes PERRL and EOMs intact bilaterally Neck no lymphadenopathy and supple Lymph Lymphatic: no lymphadenopathy noted and no lymphedema noted Resp Resp Narrative: diminished breath sounds bibasally, no wheezes or crackles. Cardio regular rate, regular rhythm, S1 normal heart sound, S2 normal heart sound and no murmurs GI normal to inspection, nondistended, normoactive bowel sounds, soft to palpation, non-tender and non-distended Extremity normal capillary refill, no clubbing, cyanosis or edema and no calf tenderness General Extremity: no tenderness to palpation of joints or extremities Skin General Skin Exam: no breakdown Neuro CN's II-XII intact bilaterally, no focal motor deficits, no sensory deficits noted and deep tendon reflexes 2+ bilaterally Motor Exam: strength 5/5 throughout and general weakness Psych thought process normal, cooperative and affect normal Appearance: appropriate Assessment & Plan Assessment/Plan (1) UTI (urinary tract infection): PLAN: Plan #Acute encephalopathy due to UTI * Currently on IV ceftriaxone. Urine culture growing Klebsiella pneumoniae, sensitive to ceftriaxone * Failed oral outpatient therapy. Hydrate gently with IV fluids. * PT OT on board. Fall precautions. * #NATI on CKD stage III * Creatinine is improving. Creatinine was 2.9 on admission with a baseline of around 1.4. * Continue gentle hydration and monitor. Cr is down to 1.98 today * Cr is up to 2.34 today. Will hydrate with IVF and trend. #Hyponatremia: * Likely due to hyperglycemia. * sodium is now 133. Continue gentle hydration with IVF. * #Debility due to mechanical fall: PT OT on board. Fall precautions. #Type 2 diabetes mellitus with hyperglycemia * Resolved. On Lantus. Insulin sliding scale. Checks ACHS. * #Hypertension: On propranolol. Lasix on hold due to NATI. IV hydralazine as needed. #History of sick sinus syndrome: S/p pacemaker. #CAD: On aspirin and propranolol. Not on statin. Unclear why. #Restless leg syndrome: On pramipexole DVT prophylaxis: heparin Disposition: DC today if Cr trends downwards. Charges/Coding Visit Charges Inpatient E&M: 00626 Subs Hosp L2
[2023-09-26] MEDS: 0.9% Normal Saline (1000mL) 1,000 ML 125 ML IV ×2 (11:29→21:09)
[2023-09-26] MEDS: Insulin Lispro 100 UNIT/ML INSULN.PEN SC ×3 (11:35→21:14)
[2023-09-26] MEDS: 0.9% Saline Lock 10 ML Syringe IV (11:35)
[2023-09-26 11:54] LABS: Bedside Glucose 299 mg/dL (74-106)
[2023-09-26 15:30] VITALS: BP 105/49; PULSE 60; RESP 18; TEMP 36.7; O2SAT 94
[2023-09-26 16:49] LABS: Bedside Glucose 243 mg/dL (74-106)
[2023-09-26 21:05] VITALS: BP 128/63; PULSE 65; RESP 18; TEMP 36.6; O2SAT 95
[2023-09-26] MEDS: Pramipexole Di-HCl 1 MG Tablet 2 MG PO (21:15)
[2023-09-26 22:44] LABS: Bedside Glucose 238 mg/dL (74-106)
[2023-09-27 03:03] VITALS: BP 157/58; PULSE 60; RESP 18; TEMP 36.3; O2SAT 97
[2023-09-27 05:09] VITALS: BMI 33.9
[2023-09-27 06:05] LABS: Absolute Lymphocyte Count 1.42 X10^3/uL (0.83-4.51); Absolute Neutrophil Count 5.9 X10^3/uL (2.0-7.7); Basophil# 0.03 X10^3/uL; Basophil% 0.3 % (0-1); Eosinophil# 0.45 X10^3/uL; Eosinophils% 5.2 % (0-5); Hematocrit 31.3 % (37-47); Hemoglobin 10.3 g/dL (12.0-15.0); Lymphocyte # 1.42 X10^3/ul (0.83-4.51); Lymphocyte % 16.4 % (19-41); Mean Corp Hgb Conc 32.9 g/dL (32-36); Mean Corpuscular Hgb 29.2 pg (27.0-32.0); Mean Corpuscular Volume 88.7 fL (81-99); Mean Platelet Vol. 10.9 fl (6.2-12.0); Monocyte% 8.1 % (0-10); NRBC Flagged by Analyzer 0 % (0-5); Neutrophil # 5.88 X10^3/uL (2.7-7.7); Neutrophil % 68.1 % (47-70); Platelet Count 291 K/mm3 (150-450); RBC Distribution Width CV 13.1 % (11.6-14.6); RBC Distribution Width SD 42.4 fl (35.1-43.9); Red Blood Count 3.53 M/mm3 (4.2-5.4); White Blood Count 8.6 K/mm3 (4.4-11.0)
[2023-09-27 06:44] LABS: Anion Gap 5 (5-15); BUN 67 mg/dL (7-18); BUN/Creat Ratio 37.4 RATIO (10-20); Calcium,Total 8.3 mg/dL (8.5-10.1); Chloride 107 mmol/L (98-107); Creatinine, Serum 1.79 mg/dL (0.55-1.02); EST Glomerular Filtration Rate 29 mL/min (>60); Est Glom Filt Rate - Afr Amer 35 mL/min (>60); Estimated Creatinine Clearance 24.01 ml/min; Glucose 97 mg/dL (74-106); Potassium 3.5 mmol/L (3.5-5.1); Sodium Level 135 mmol/L (136-145)
[2023-09-27 06:59] LABS: Bedside Glucose 108 mg/dL (74-106)
[2023-09-27 07:30] VITALS: O2SAT 93
[2023-09-27 09:00] VITALS: BP 153/60; PULSE 60; RESP 18; TEMP 36.8; O2SAT 97
[2023-09-27] MEDS: Ceftriaxone 1 GM/50 ML BAG IV (09:03)
[2023-09-27] MEDS: oxyCODONE 5 MG Tablet PO (09:04)
[2023-09-27] MEDS: Heparin Injection (Vial) 5,000 UNIT/ML VIAL 5000 UNIT SC (09:04)
[2023-09-27] MEDS: Glucerna Shake 120 ML LIQUID PO (09:04)
[2023-09-27] MEDS: Insulin Glargine-YFGN 100 UNIT/ML Pen 10 UNIT SC (09:04)
[2023-09-27] MEDS: Aspirin 81 MG TAB.CHEW PO (09:05)
[2023-09-27] MEDS: Propranolol 10 MG Tablet 20 MG PO (09:05)
[2023-09-27] MEDS: Ferrous Sulfate 325 MG Tablet PO (09:05)
--- NOTE | 2023-09-27 10:59 | DS.PCM_ITS ---
Providers Date of Admission: 09/24/23 Date of Discharge: 09/27/23 Primary Care Physician: Dr. Leonard Stewart, DO Consultations 09/24/23 03:08 Consult: Onc/Wound/protection engineer Routine Comment: Reason for Consult:: RLE chronic wounds Reason For Visit: UTI, NATI, HYPERGLYCEMIA Diagnosis Discharge Diagnosis (1) UTI (urinary tract infection): Status: Acute Code(s): N39.0 - Urinary tract infection, site not specified Plan #Acute encephalopathy due to UTI * Currently on IV ceftriaxone. Urine culture growing Klebsiella pneumoniae, sensitive to ceftriaxone * Failed oral outpatient therapy. Hydrate gently with IV fluids. * PT OT on board. Fall precautions. * #NATI on CKD stage III * Creatinine is improving. Creatinine was 2.9 on admission with a baseline of around 1.4. * Continue gentle hydration and monitor. Cr is down to 1.98 today * Cr is up to 2.34 today. Will hydrate with IVF and trend. #Hyponatremia: * Likely due to hyperglycemia. * sodium is now 133. Continue gentle hydration with IVF. * #Debility due to mechanical fall: PT OT on board. Fall precautions. #Type 2 diabetes mellitus with hyperglycemia * Resolved. On Lantus. Insulin sliding scale. Checks ACHS. * #Hypertension: On propranolol. Lasix on hold due to NATI. IV hydralazine as needed. #History of sick sinus syndrome: S/p pacemaker. #CAD: On aspirin and propranolol. Not on statin. Unclear why. #Restless leg syndrome: On pramipexole DVT prophylaxis: heparin Disposition: DC today if Cr trends downwards. Medications at Discharge Home Medications ferrous sulfate 325 mg (65 mg iron) tablet 325 mg PO DAILY supplement 08/14/17 alendronate 70 mg tablet 70 mg PO MO BONES 08/10/20 furosemide 40 mg tablet 40 mg PO DAILY diuretic 11/09/20 blood sugar diagnostic (Burst MediaTouch Verio test strips) #100 ea 03/27/21 pramipexole 1 mg tablet 2 mg PO QHS rls 05/11/21 propranolol 40 mg tablet 20 mg PO BID anxiety 06/29/21 vitamin N91-nsvrvmkjx factor 1 tab PO/SL DAILY supplement 11/08/21 flash glucose scanning reader ([employer] Antione 2 Olympia) #2 ea 12/17/21 oxycodone 10 mg tablet 10 mg PO 4X/DAY chronic pain 03/20/22 pen needle, diabetic 32 gauge x /32 (BD Ultra-Fine Tracee Pen Needle) #100 ea 06/02/23 insulin lispro protamine-lispro 100 unit/mL (50-50) subcutaneous pen (Humalog Mix 50-50 KwikPen) 11 unit subcut BID t2dm 09/24/23 metolazone 2.5 mg tablet 2.5 mg PO DAILY 09/24/23
--- NOTE | 2023-09-27 10:59 | PCM.DC.SUM ---
Providers Date of Admission: 09/24/23 Date of Discharge: 09/27/23 Primary Care Physician: Dr. Leonard Stewart, DO Consultations 09/24/23 03:08 Consult: Onc/Wound/cardio tech Routine Comment: Reason for Consult:: RLE chronic wounds Reason For Visit: UTI, NATI, HYPERGLYCEMIA Diagnosis Discharge Diagnosis (1) UTI (urinary tract infection): Status: Acute Code(s): N39.0 - Urinary tract infection, site not specified Plan #Acute encephalopathy due to UTI Currently on IV ceftriaxone. Urine culture growing Klebsiella pneumoniae, sensitive to ceftriaxone Failed oral outpatient therapy. Hydrate gently with IV fluids. PT OT on board. Fall precautions. #NATI on CKD stage III Creatinine is improving. Creatinine was 2.9 on admission with a baseline of around 1.4. Continue gentle hydration and monitor. Cr is down to 1.98 today Cr is up to 2.34 today. Will hydrate with IVF and trend. #Hyponatremia: Likely due to hyperglycemia. sodium is now 133. Continue gentle hydration with IVF. #Debility due to mechanical fall: PT OT on board. Fall precautions. #Type 2 diabetes mellitus with hyperglycemia Resolved. On Lantus. Insulin sliding scale. Checks ACHS. #Hypertension: On propranolol. Lasix on hold due to NATI. IV hydralazine as needed. #History of sick sinus syndrome: S/p pacemaker. #CAD: On aspirin and propranolol. Not on statin. Unclear why. #Restless leg syndrome: On pramipexole DVT prophylaxis: heparin Disposition: DC today if Cr trends downwards. Medications at Discharge Home Medications ferrous sulfate 325 mg (65 mg iron) tablet 325 mg PO DAILY supplement 08/14/17 alendronate 70 mg tablet 70 mg PO MO BONES 08/10/20 furosemide 40 mg tablet 40 mg PO DAILY diuretic 11/09/20 blood sugar diagnostic ([employer]Touch Verio test strips) #100 ea 03/27/21 pramipexole 1 mg tablet 2 mg PO QHS rls 05/11/21 propranolol 40 mg tablet 20 mg PO BID anxiety 06/29/21 vitamin F81-hxxjauiag factor 1 tab PO/SL DAILY supplement 11/08/21 flash glucose scanning reader ([employer] Antione 2 [place]) #2 ea 12/17/21 oxycodone 10 mg tablet 10 mg PO 4X/DAY chronic pain 03/20/22 pen needle, diabetic 32 gauge x 5/32 (BD Ultra-Fine Tracee Pen Needle) #100 ea 06/02/23 insulin lispro protamine-lispro 100 unit/mL (50-50) subcutaneous pen (Humalog Mix 50-50 KwikPen) 11 unit subcut BID t2dm 09/24/23 metolazone 2.5 mg tablet 2.5 mg PO DAILY 09/24/23 sulfamethoxazole 800 mg-trimethoprim 160 mg tablet (Bactrim DS) 1 tab PO BID #14 tabs 09/27/23 Hospital Course Operations None Procedures None Summary of Care Provided Minutes Spent on Discharge: 45 Hospital Course: Patient is a 78-year-old female with past medical history as outlined was admitted through the ED on 09/24/2023 with a complaint of falls and confusion as well as lethargic. She was admitted with a complaint of mechanical fall. She had been weaker and lethargic at home and had been sleeping all day. She had also had some confusion so came into the ED. She felt much better when she came into the ED. However she admitted to urinary symptoms with hesitancy, frequency and sensation of pressure when urinating. She had been started on ciprofloxacin on the outpatient basis for UTI. Labs were essentially unremarkable apart from 4+ urine bacteria. CT of the brain showed no acute intracranial pathology and pelvic x-ray showed no evidence of fracture. She was admitted and managed for UTI and debility. She was started on IV ceftriaxone. Patient felt much better and did well with therapy. Urine cultures came back positive for ESBL E. coli. This was sensitive to Bactrim so she was discharged with a prescription for p.o. Bactrim. She is follow-up with her primary care doctor within 1 to 2 weeks. Patient seen and examined prior to discharge. She felt much better and had no complaints. She had an uneventful night. Review of systems otherwise negative. Labs and vitals reviewed. Home medication reviewed and reconciled. Physical Exam Const alert Constitutional Narrative: frail, weak General Appearance: cooperative and comfortable HEENT normocephalic, head/scalp atraumatic, hearing grossly normal bilaterally, moist oral mucous membranes and oropharynx normal Mouth: oral and palatal mucosa normal Eyes PERRL, EOMs intact bilaterally and conjunctivae normal Neck no lymphadenopathy and supple Lymph Lymphatic: no lymphadenopathy noted and no lymphedema noted Resp Resp Narrative: diminished breath sounds bibasally, no wheezes or crackles. Cardio regular rate, regular rhythm, S1 normal heart sound, S2 normal heart sound and no murmurs GI normal to inspection, nondistended, normoactive bowel sounds, soft to palpation, non-tender and non-distended Extremity normal capillary refill, no clubbing, cyanosis or edema and no calf tenderness General Extremity: no tenderness to palpation of joints or extremities Skin no rashes or lesions noted General Skin Exam: no breakdown Neuro oriented x3, CN's II-XII intact bilaterally, moves all extremities, no focal motor deficits, no sensory deficits noted and deep tendon reflexes 2+ bilaterally Sensorium / Orientation: awake Motor Exam: strength 5/5 throughout and general weakness Psych thought process normal, cooperative and affect normal Appearance: appropriate Weight / BMI Weight Weight: 167 lb 15.876 oz Body Mass Index (BMI) 33.9 ABG / Lab / Microbiology Data 09/27/23 04:51 09/27/23 04:51 Laboratory: Laboratory Results - last 24 hr 09/26/23 11:34: POC Glucose 299 H 09/26/23 16:29: POC Glucose 243 H 09/26/23 21:07: POC Glucose 238 H 09/27/23 04:51: WBC 8.6, RBC 3.53 L, Hgb 10.3 L, Hct 31.3 L, MCV 88.7, MCH 29.2, MCHC 32.9, RDW Std Deviation 42.4, RDW Coeff of Fady 13.1, Plt Count 291, MPV 10.9, Immature Gran % (Auto) 1.900 H, Neut % (Auto) 68.1, Lymph % (Auto) 16.4 L, [place] % (Auto) 8.1, Eos % (Auto) 5.2 H, Baso % (Auto) 0.3, Absolute Neuts (auto) 5.9, Absolute Lymphs (auto) 1.42, Nucleated RBC % 0, Sodium 135 L, Potassium 3.5, Chloride 107, Carbon Dioxide 23.0, Anion Gap 5, BUN 67 H, Creatinine 1.79 H, Estim Creat Clear Calc 24.01, Est GFR (MDRD) Af Amer 35 L, Est GFR (MDRD) Non-Af 29 L, BUN/Creatinine Ratio 37.4 H, Glucose 97, Calcium 8.3 L 09/27/23 06:21: POC Glucose 108 H Microbiology: Microbiology 09/23/23 23:36 Urine Catheter - Catheter Urine Culture - Final ESBL Escherichia coli D/C Instructions Discharge Diet: Low fat / Low cholesterol Weight Bearing Status: Weight bearing as tolerated Call your doctor if you observe: Fever of 101 or Higher, Shortness of breath, Dizziness, Swelling in the ankles, Chest pain and Increased palpitations (irregular heartbeat) Meaningful Use Info Meaningful Use Diagnoses (Choose all that apply): None applicable Discharge Plan Admission Admit Date/Time: 09/24/23 01:15 Primary Reason for Your Visit: UTI Attending Provider: Juju Farfan Primary Care Provider: Leonard Stewart Consulting Providers: Hetal Garrido Instructions Patient Instructions: Urinary Tract Infections in Women, ED UTI Fem Ch, ED UTIs Women Discharge Orders/Prescriptions Prescriptions: New sulfamethoxazole-trimethoprim [Bactrim DS] 800-160 mg tablet 1 tab PO BID Qty: 14 0RF Continued alendronate 70 mg tablet 70 mg PO MO furosemide 40 mg tablet 40 mg PO DAILY Patient Comments: TAKE 1 TABLET BY MOUTH ONCE DAILY (DME) FreeStyle Antione 2 [place] Misc See Rx Instructions .ROUTE .MEDSUPPLY Qty: 2 6RF Rx Instructions: As directed oxycodone 10 mg tablet 10 mg PO 4X/DAY Patient Comments: TAKE 1 TABLET BY MOUTH FOUR TIMES DAILY NEEDED (DME) pen needle, diabetic [BD Ultra-Fine Tracee Pen Needle] 32 gauge x 5/32 needle See Rx Instructions .ROUTE .MEDSUPPLY Qty: 100 5RF Rx Instructions: As directed5 times daily ferrous sulfate 325 MG tablet 325 mg PO DAILY pramipexole 1 mg tablet 2 mg PO QHS propranolol 40 mg tablet 20 mg PO BID vitamin M86-zbpmrsqvy factor 1 tab PO/SL DAILY metolazone 2.5 mg tablet 2.5 mg PO DAILY Patient Comments: take 1 tablet by mouth daily, ONE HOUR BEFORE FUROSEMIDE (water pill) Humalog Mix 50-50 KwikPen 100 unit/mL (50-50) insulin pen 11 unit subcut BID Rx Instructions: 11 units in the morning and 6 at night (DME) OneTouch Verio test strips Strip See Rx Instructions .ROUTE .MEDSUPPLY Qty: 100 3RF Rx Instructions: 3x/day Discontinued ciprofloxacin HCl 250 mg tablet 250 mg PO Q12H Patient Comments: TAKE 1 TABLET BY MOUTH TWICE DAILY Referrals / Follow Up: Leonard Stewart DO [Primary Care Provider] - Within 2 Weeks Disposition Disposition (needs filled in before D/C Order can be placed): Home, Self Care Charges/Coding Visit Charges Inpatient E&M: 41824 Disch Hosp >30min
--- NOTE | 2023-09-27 11:07 | NURSING ---
I spoke to Moses with [facility] to inform her that the pt will be d/c today.
[2023-09-27] MEDS: Insulin Lispro 100 UNIT/ML INSULN.PEN SC (11:24)
[2023-09-27 11:43] LABS: Bedside Glucose 312 mg/dL (74-106)
[2023-09-27 12:25] VITALS: BP 123/56; PULSE 60; RESP 18; TEMP 36.7; O2SAT 97
== END 2023-09-27 12:34 | disposition home health service (06) | DRG 689 ==
LOC: ED 09-24 01:25 → PCU 09-24 05:25
PROVIDERS: Admitting Provider Family Medicine; Emergency Provider Emergency Medicine; PCP Family Medicine; Visit Provider Student in an Organized Health Care Education/Training Program
DX: N39.0 Urinary tract infection, site not specified (principal); M06.9 Rheumatoid arthritis, unspecified; I49.5 Sick sinus syndrome; E11.22 Type 2 diabetes mellitus with diabetic chronic kidney disease; E11.65 Type 2 diabetes mellitus with hyperglycemia; Z79.4 Long term (current) use of insulin; N18.30 Chronic kidney disease, stage 3 unspecified; G93.41 Metabolic encephalopathy; N17.9 Acute kidney failure, unspecified; E87.1 Hypo-osmolality and hyponatremia; D50.9 Iron deficiency anemia, unspecified; B96.1 Klebsiella pneumoniae [K. pneumoniae] as the cause of diseases classified elsewhere; G25.81 Restless legs syndrome; I12.9 Hypertensive chronic kidney disease with stage 1 through stage 4 chronic kidney disease, or unspecified chronic kidney disease; E78.5 Hyperlipidemia, unspecified; I25.10 Atherosclerotic heart disease of native coronary artery without angina pectoris; I25.2 Old myocardial infarction; E87.8 Other disorders of electrolyte and fluid balance, not elsewhere classified; F41.8 Other specified anxiety disorders; E66.9 Obesity, unspecified; Z95.0 Presence of cardiac pacemaker; Z79.83 Long term (current) use of bisphosphonates; Z79.899 Other long term (current) drug therapy; Z68.32 Body mass index [BMI] 32.0-32.9, adult; R53.81 Other malaise; Z91.81 History of falling; B96.20 Unspecified Escherichia coli [E. coli] as the cause of diseases classified elsewhere; Z16.12 Extended spectrum beta lactamase (ESBL) resistance
CPT/HCPCS: 36415; 70450; 73521; 80048; 80053; 80076; 81001; 82009; 82140; 82803; 82962; 83036; 83735; 83930; 84100; 84443; 85025; 87077; 87086; 87088; 87186; 96361; 96365; 96366; 96372; 97162; 97166; 97530; 97535; 97802; 99221; 99285; 99406; J7030; J7040; A4216; G0378

== ENCOUNTER → 2023-10-13 | Outpatient (CLI) | payer MEDICARE, SELFPAY ==
[2023-10-13 17:00] LABS: Hematocrit 31.8 % (37-47); Hemoglobin 9.8 g/dL (12.0-15.0); Mean Corp Hgb Conc 30.8 g/dL (32-36); Mean Corpuscular Hgb 29.2 pg (27.0-32.0); Mean Corpuscular Volume 94.6 fL (81-99); Mean Platelet Vol. 9.5 fl (6.2-12.0); Platelet Count 311 K/mm3 (150-450); RBC Distribution Width CV 14.5 % (11.6-14.6); RBC Distribution Width SD 49.5 fl (35.1-43.9); Red Blood Count 3.36 M/mm3 (4.2-5.4); White Blood Count 5.8 K/mm3 (4.4-11.0)
[2023-10-13 17:11] LABS: Protein, Urine (Random) 64.5 mg/dL (<11.9); Protein:Creat Ratio 1577 mg/g CRE (0-200)
[2023-10-13 17:36] LABS: PTHIN 441.8 pg/mL (18.4-80.1)
[2023-10-13 17:38] LABS: Albumin, Serum 3.2 g/dL (3.2-5.0); BUN 55 mg/dL (7-18); BUN/Creat Ratio 33.3 RATIO (10-20); Calcium,Total 8.2 mg/dL (8.5-10.1); Chloride 113 mmol/L (98-107); Creatinine, Serum 1.65 mg/dL (0.55-1.02); EST Glomerular Filtration Rate 32 mL/min (>60); Est Glom Filt Rate - Afr Amer 39 mL/min (>60); Glucose 183 mg/dL (74-106); Phosphorus 4.2 mg/dL (2.5-4.9); Sodium Level 138 mmol/L (136-145)
[2023-10-13 17:40] LABS: Vitamin D,25 Hydroxy 18.8 ng/mL
--- OUTSIDE RECORDS SUMMARY | 2023-10-13 21:18 | XMS RPT_ITS | CCD ---
Author Name Unknown Address [address] [place] [address] Organization [facility] Care Team Providers Care Systems Design Engineer Name Role Phone Shanta Randle Unavailable Unavailable Vlad Echevarria Unavailable Unavailable Kristi Biggs Unavailable Unavailable ROWENA TRINH Attending Unavailabl e IMCA Referring Unavailable KRISTI BIGGS Primary Care Unavailable System, Provider Not In Primary Care Provider YULIYA RIVER Referring Unavailable YULIYA RIVER Attending Unavailable Medications Current Medications Medication Drug Class(es) Dates Sig (Normalized) Sig (Original) acetaminophen 325 mg / HYDROcodone bitartrate 10 mg oral tablet (1 source) Opioid Agonist Start: 07-24-2022 take 1 tablet by mouth four times daily as needed for pain HYDROcodone-acetami nophen ([place]) 10-325 MG tablet TAKE 1 TABLET BY MOUTH FOUR TIMES DAILY NEEDED for severe pain 0 07/24/2022 Active alendronic acid 70 mg oral tablet (1 source) Bisphosphonate Start: 10-20-2022 take 1 tablet by mouth every week alendronate (Fosamax) 70 MG tablet TAKE ONE TABLET BY MOUTH EVERY WEEK (BULK) 0 10/20/2022 Active amitriptyline hydrochloride 10 mg oral tablet (1 source) Tricyclic Antidepressant Start: 08-06-2022 take 2 tablets by mouth once daily at bedtime amitriptyline (Elavil) 10 MG tablet TAKE TWO TABLETS BY MOUTH DAILY AT 9PM AT BEDTIME 0 08/06/2022 Active cholecalciferol 1.25 mg oral capsule (2 sources) Vitamin D Start: 09-12-2022 cholecalciferol (Vitamin D-3) 1.25 MG (44765 UT) capsule Take by mouth Twice a Week. 0 09/12/2022 Active Problems Active Problems Problem Classification Problem Date Documented Date Episodic/Chronic Acute myocardial infarction (3 sources) Myocardial infarction; Translations: [Non-ST elevation (NSTEMI) myocardial infarction] Onset: 10-27-2022 10-27-2022 Chronic Cardiac dysrhythmias (3 sources) Bradycardia; Translations: [Bradycardia, unspecified] Onset: 10-27-2022 10-27-2022 Episodic Coma; stupor; and brain damage (3 sources) Drowsy; Translations: [Somnolence] Onset: 10-27-2022 10-27-2022 Episodic Diabetes mellitus without complication (2 sources) Type 2 diabetes mellitus without complications; Translations: [Type 2 diabetes mellitus without complications] Onset: 03-10-2017 Chronic Malaise and fatigue (3 sources) Asthenia; Translations: [Weakness] Onset: 10-27-2022 10-27-2022 Episodic Osteoarthritis (6 sources) Bilateral primary osteoarthritis of knee; Translations: [Polyosteoarthritis, unspecified] Onset: 03-10-2017 Chronic Other hereditary and degenerative nervous system conditions (2 sources) Restless legs syndrome; Translations: [Restless legs syndrome] Onset: 03-10-2017 Chronic Rheumatoid arthritis and related disease (2 sources) Inflammatory polyarthropathy; Translations: [Inflammatory polyarthropathy] Onset: 03-10-2017 Chronic Past or Other Problems Problem Classification Problem Date Documented Da te Episodic/Chronic Acquired foot deformities (2 sources) Flat foot [pes planus] (acquired), unspecified foot; Translations: [Flat foot [pes planus] (acquired), unspecified foot] Onset: 03-10-2017 Episodic Spondylosis; intervertebral disc disorders; other back problems (2 sources) Spinal stenosis, lumbar region; Translations: [Spinal stenosis, lumbar region] Onset: 03-10-2017 Episodic Results Test Name Value Interpretation Reference Range Facil ity Encounters Encounter Date Encounter Type Care Provider Facility Start: 10-27-2022 End: 10-28-2022 Emergency department patient visit YULIYA RIVER [facility] Start: 10-27-2022 End: 10-27-2022 Subsequent hospital visit by physician [facility] Radiology Procedures Date Procedure Procedure Detail Performing Clinician Start: 10-27-2022 Radiologic exam ches t single view Yuliya River MD Work Phone: Plan of Treatment Date Care Activity Detail Author Start: 08-14-2027 DTaP/Tdap/Td Vaccine s (2 - Td or Tdap) DTaP/Tdap/Td Vaccines (2 - Td or Tdap) [facility] Start: 01-14-2023 Pneumococcal Vaccine : 65+ Years (2 - PCV) Pneumococcal Vaccine: 65+ Years (2 - PCV) [facility] Start: 04-04-2022 Influenza vaccination Influenza Vacc ine (#1) [facility] Start: 01-13-1996 Zoster Vaccines (1 of 2) Zoster Vacc danna (1 of 2) [facility] Start: 1965 Urine screening for protein Di abetes: Urine Protein Screening [facility] Start: 01-13-1964 Hepatitis C screening Hepatitis C Sc reening [facility] Start: 01-13-1956 Diabetic foot examination Diabetes: Foot Exam [facility] Start: 01-13-1956 Glaucoma screening Diabetes: R etinopathy Screening [facility] Start: 01-13-1956 Preventive dental service Diabetes: Dental Exam [facility] Start: 1945 COVID-19 Vaccine (#1) COVID-19 Vacci ne (#1) [facility] Start: 1945 Hemoglobin A1c measurement Diabetes: Hemoglobin A1C [facility] Start: 1945 Hepatitis B Vaccines (1 of 3 - 3-dose series) Hepatitis B Vaccines (1 of 3 - 3-dose series) [facility] Start: 1945 Lipid panel Lipid Panel [facility] Start: 1945 Screening for osteoporosis Bone Dens ity Scan [facility] Immunizations Immunization Date Immunization Notes Care Provider Nidhi hamm 07-04-2017 influenza virus vacc ine, unspecified formulation [facility] Payers Date Payer Category Payer Medicare 2022 Medicare [id number] 1945 Unknown [id number] Medicare [id number] Social History Date Type Detail Facility Start: 10-27-2022 Tobacco smoking status NHIS Never sm oked tobacco [facility] Start: 10-27-2022 Tobacco use and exposure Smokeless t obacco non-user [facility] Start: 10-27-2022 Alcohol intake Ex-drinker (finding) [facility] Start: 1945 Sex Assigned At Not on file [facility] Start: 10-17-2022 End: 10-27-2022 Exposure to SARS-CoV-2 (event) Not sure [facility] Summary Purpose Family History No Family History Records FoundNo Family History Records FoundNo Family History Records FoundNo Family History Records Found Advance Directives No Advanced Directives Records FoundNo Advanced Directives Records FoundNo Advanced Directives Records FoundNo Advanced Directives Records Found Additional Source Comments INFORMATION SOURCE (unrecogn ized section and content) DATE CREATED AUTHOR AUTHOR'S ORGANIZ ATION 09/23/2018 [facility] DATE CREATED AUTHOR AUTHOR'S ORGANIZ ATION 11/08/2020 [facility] DATE CREATED AUTHOR AUTHOR'S ORGANIZ ATION 10/28/2022 [facility] Care Teams (unrecognized sec tion and content) FOR RECORDS PERTAINING TO PATIENTS WHO ARE OR HAVE BEEN ENROLLED IN A CHEMICAL DEPENDENCY/SUBSTANCEABUSE PROGRAM, SOME INFORMATION MAY BE OMITTED. This clinical summary was aggregated from multiple sources. Caution should be exercised in using it in the provision of clinical care. This summary normalizes information from multiple sources, and as a consequence, information in this document may materially change the coding, format and clinical context of patient data. In addition, data may be omitted in some cases. CLINICAL DECISIONS SHOULD BE BASED ON THE PRIMARY CLINICAL RECORDS. [employer]. provides no warranty or guarantee of the accuracy or completeness of information in this document.
== END | disposition home or self-care (01) ==
PROVIDERS: PCP Family Medicine; Referring Provider Internal Medicine Nephrology; Visit Provider Internal Medicine Nephrology
DX: N18.32 Chronic kidney disease, stage 3b (principal)
CPT/HCPCS: 36415; 80069; 82306; 82570; 83970; 84156; 85027

== ENCOUNTER 2023-11-18 14:08 | Outpatient (RCR) | payer MEDICARE, SELFPAY ==
[2023-11-18 15:04] VITALS: BP 137/68; PULSE 96; RESP 18; TEMP 36.6; BMI 34.9
--- NOTE | 2023-11-18 15:55 | PCM.WC.HP ---
History of Present Illness Date of Service: 11/18/23 Chief Complaint: Bilateral lower extremity swelling and edema with ulcerations of the right lower extremity History of Wound: This is a 78-year-old female who presents with 2 open sores on her right lower extremity, which had been present for approximately 6 weeks. She denies trauma to the areas, indicating that they occurred spontaneously. She has been using Medihoney topically to her ulcerations recently. She has experienced chronic swelling and edema in her lower extremities bilaterally. She is relatively inactive. She sits for long periods each day. She sews and watches TV a good deal of each day. She claims to sleep on a flat mattress at night. She lives with her grandson, who looks after her needs. It is noted that she was recently hospitalized for urinary tract infection. She is morbidly obese, with a BMI of 34.9. She suffers from multiple pre-existing medical problems, which are documented below. Most recent laboratory results are from October 13, 2023, with results as follows: White blood count 5.8, hemoglobin 9.8, hematocrit 31.8, platelets 311,000, potassium 5.0, sodium 138, chloride 113, glucose 183, calcium 8.2, phosphorus 4.2, albumin 3.2. [facility] Medical History (Updated 11/18/23 @ 16:[address] Surendra Lord MD) Age related osteoporosis Anemia Anxiety Arthritis Bilateral primary osteoarthritis of knee Cardiac murmur Carpal tunnel syndrome Cellulitis Chronic venous insufficiency Dependent edema Depression Dermatitis Diabetes Edema Edema of both lower extremities Femoral neck fracture Fracture of femur, subcapital, right, closed Hip fracture requiring operative repair History of diabetes mellitus History of non-ST elevation myocardial infarction (NSTEMI) (03/21/21) History of renal insufficiency Insulin dependent diabetes mellitus Left leg swelling Leg edema, left Leg edema, right Obesity (BMI 30.0-34.9) Open wound of left lower extremity Osteoarthritis 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 Presence of cardiac pacemaker Rheumatoid arthritis Rheumatoid arthritis Right leg swelling Sick sinus syndrome Traumatic ulcer of left lower leg Type 2 diabetes mellitus without complications Ulcer of right lower extremity with fat layer exposed Urinary tract infection UTI (urinary tract infection) Venous stasis dermatitis Venous stasis dermatitis of both lower extremities Venous stasis ulcer Home Medications ferrous sulfate 325 mg (65 mg iron) tablet 325 mg PO DAILY supplement 01/11/18 [History Last Taken 03/20/21] alendronate 70 mg tablet 70 mg PO MO BONES 08/10/20 [History Last Taken 2 Weeks Ago ~03/07/21] furosemide 40 mg tablet 40 mg PO DAILY diuretic 11/09/20 [History Last Taken 03/21/21] pramipexole 1 mg tablet 2 mg PO QHS rls 05/11/21 [History Last Taken Unknown] propranolol 40 mg tablet 20 mg PO BID anxiety 06/29/21 [History Last Taken Unknown] flash glucose scanning reader (FreeStyle Antione 2 [place]) #2 ea 12/17/21 [Rx Last Taken Unknown] oxycodone 10 mg tablet 10 mg PO 4X/DAY chronic pain 03/20/22 [History Last Taken Unknown] insulin lispro protamine-lispro 100 unit/mL (50-50) subcutaneous pen (Humalog Mix 50-50 KwikPen) 11 unit subcut BID t2dm 09/24/23 [History Last Taken Unknown] blood sugar diagnostic ([employer] Verio test strips) #100 ea 10/24/23 [Rx Last Taken Unknown] flash glucose sensor (FreeStyle Antione 2 Sensor kit) #6 ea 10/24/23 [Rx Last Taken Unknown] pen needle, diabetic 32 gauge x 5/32 (BD Ultra-Fine Tracee Pen Needle) #100 ea 10/24/23 [Rx Last Taken Unknown] calcitriol 0.25 mcg capsule 0.25 mcg PO QDAY 11/07/23 [History Last Taken Unknown] ergocalciferol (vitamin D2) 1,250 mcg (50,000 unit) capsule 1,250 mcg PO QWEEK 11/18/23 [History Last Taken Unknown] meclizine 25 mg chewable tablet (Antivert) 12.5 - 25 mg PO BID PRN dizziness 11/18/23 [History Last Taken Unknown] triamcinolone acetonide 0.1 % topical cream applic topical TID PRN PRN itching 11/18/23 [History Last Taken Unknown] Allergy/AdvReac Type Severity Reaction Status Date / Time finerenone [From [facility]] AdvReac Severe Other Verified 11/07/23 15:41 Family History Mother Diabetes Father Diabetes Surgical History History of back surgery History of carpal tunnel release History of gastric bypass History of hysterectomy History of total left hip replacement History of total right hip replacement Social History household members: other details: Lives with her son. Smoking Status: Never smoker alcohol intake: never substance use type: does not use Vital Signs Vital Signs Vital Signs: 11/18/23 15:04 Temperature 98 F Temperature Source Temporal Pulse Rate 96 Respiratory Rate 18 Blood Pressure 137/68 H Blood Pressure Mean 91 Blood Pressure Source Monitor Blood Pressure Position Semi-Fowlers Blood Pressure Location Left Arm Weight Weight: 173 lb Body Mass Index (BMI) 34.9 Physical Exam Const alert, oriented x3, no apparent distress and well nourished Constitutional Narrative: The patient is mildly obese. General Appearance: cooperative, comfortable, well kempt and well developed Orientation / Consciousness: awake, oriented to person, oriented to place and oriented to time HEENT normocephalic, head/scalp atraumatic and hearing grossly normal bilaterally Head and Scalp: normal to inspection, normocephalic and atraumatic Nose: external nose normal External Ear: external ears normal Eyes PERRL and EOMs intact bilaterally General Eye: normal appearance of both eyes Neck full ROM Resp normal respiratory effort, normal air movement, no retractions and no use of accessory muscles Effort and Inspection: able to speak in complete sentences Auscultation: clear to auscultation bilaterally Cardio regular rate, regular rhythm, S1 normal heart sound and S2 normal heart sound GI non-distended Extremity no calf tenderness General Extremity: Negative for clubbing or cyanosis Skin Wound Narrative: Mild swelling and edema are noted in the patient's lower extremities bilaterally. There is no pitting edema noted. Slight erythema is noted in the gaiter areas bilaterally, consistent with suspected venous stasis dermatitis. This appears to be inflammatory in nature, rather than cellulitic. Ulcerations are noted on the medial aspect of the right calf and on the lateral aspect of the right calf. Dimensions are documented elsewhere. There is a moderate amount of bioburden and nonviable tissue. There is no obvious sign of infection or cellulitis. Multiphasic pulses are noted in the lower extremities bilaterally. Neuro oriented x3, CN's II-XII intact bilaterally, moves all extremities and no focal motor deficits Sensorium / Orientation: awake, alert, oriented to person, oriented to place and oriented to time Psych Appearance: grossly normal and appropriate Attitude: calm Activity / Motor Behavior: appropriate eye contact Speech: normal speech Mood & Affect: euthymic mood Thought Process: normal thought process Thought Content: normal thought content Attention / Concentration: attention grossly intact Debridement Note Debridement Note Wound debrided: Right medial and lateral calf ulcerations Laterality: Right Type of Debridement: Excisional debridement Anesthesia Used: 5% Lidocaine Gel Depth: Down to and including healthy tissue and in the subcutaneous layer Percentage of wound debrided: 100 Instrument Used: 5mm curette Severity: Fat Layer Exposed Amount of bleeding with debridement: Mild Bleeding Controlled with: Compression and gauze Patient tolerated procedure: Patient did not tolerate procedure well Debridement Free Text: Despite 5% lidocaine topically, the patient did not tolerate debridement well. She reacted adversely to pain during the routine excisional debridement. Cetacaine spray was then applied, and adequate time was allowed for onset of effectiveness. Nonetheless, the patient still did not tolerate the debridement. Therefore, the debridement was abbreviated. Post-Debridement Measurements and Additional Note: Post-Debridement Measurements/Treatment WC - Nurse 1 - General Ulcer Assessment Start: 11/18/23 15:04 Freq: Status: Active Protocol: [email or web address] Activity Type Activity Date Activity User E-sign Co-sign Detail Recorded Client Recorded Date Recorded By Document 11/18/23 15:04 RB Desktop 11/18/23 15:11 RB Edit Result 11/18/23 15:04 RB (1) [id number] 11/18/23 15:44 RB (1) Type of service Follow-up Visit ( => Initial Visit Physician/AREA OPERATIONS DIRECTOR) => Right - Posterior Tibial Palpable => Yes - Posterior Tibial Doppler => Multiphasic - Dorsalis Pedis Palpable => Yes - Dorsalis Pedis Doppler => Multiphasic - Extremity Color => Pale,Hemosiderin - Hair Growth on Legs => No - Hair Growth on Toes => No - Temperature of Extremity => Cool - Capillary Refill => Less than 3 => Seconds - Dependent Rubor => No - Blanched when Elevated => No - Lipodermatosclerosis => No - Other Deformity => No - Prior Foot Ulcer => No - Charcot Joint => No - Prior Amputation => No - Thick => No - Discolored => No - Deformed => No - Improper Length & Hygeine => Yes Left - Posterior Tibial Palpable => Yes - Posterior Tibial Doppler => Multiphasic - Dorsalis Pedis Palpable => Yes - Dorsalis Pedis Doppler => Multiphasic - Extremity Color => Pale,Hemosiderin - Hair Growth on Legs => No - Hair Growth on Toes => No - Temperature of Extremity => Cool - Capillary Refill => Less than 3 => Seconds - Dependent Rubor => No - Blanched when Elevated => No - Lipodermatosclerosis => No - Other Deformity => No - Prior Foot Ulcer => No - Charcot Joint => No - Prior Amputation => No - Thick => No - Discolored => No - Deformed => No - Improper Length & Hygeine => Yes 11/18/23 15:04 WC - Today's Visit Information Type of service Initial Visit Arrival Mode Ambulatory, Walker Transfer Assistance None Patient Identification Verified (Name & Yes ) Patient Requires Transmission-Based No Precautions Height and Weight Height 4 ft 11 in Weight 173 lb Weight in Pounds 173.0 lbs Body Mass Index (BMI) 34.9 BMI Classification Obese BSA - Leslie 1.73 Vital Signs Temperature (97.8 F-99.1 F) 98 F Temperature Source Temporal Pulse Rate (60-100) 96 Pulse Location Monitor Respiratory Rate (12-18) 18 Respiratory rate source Observation Blood Pressure (90/60-120/80) 137/68 H Blood Pressure Mean 91 Source Monitor Position Semi-Fowlers Blood Pressure Location Left Arm History Since Last Visit- (Skip if this is Patient's initial visit) Have you changed medications since your No last visit? Any new allergies or adverse reactions No Had a fall/change in ADL's that may No increase risk of falls Signs or symptoms of abuse and/or No neglect since last visit Have you been in the hospital since your No last visit? Has dressing in place as prescribed Yes Has compression in place as prescribed No Has offloadiing in place as prescribed No Experienced any changes in pain level or No management Pain Scale: 0-10 Numeric Is Patient Pain Free? Yes Lower Extremity Assessment/ Foot Assessment/ Toe Nail Assessment Right -Posterior Tibial Palpable Yes -Posterior Tibial Doppler Multiphasic -Dorsalis Pedis Palpable Yes -Dorsalis Pedis Doppler Multiphasic -Extremity Color Pale, Hemosiderin -Hair Growth on Legs No -Hair Growth on Toes No -Temperature of Extremity Cool -Capillary Refill Less than 3 Seconds -Dependent Rubor No -Blanched when Elevated No -Lipodermatosclerosis No -Other Deformity No -Prior Foot Ulcer No -Charcot Joint No -Prior Amputation No -Thick No -Discolored No -Deformed No -Improper Length & Hygeine Yes Left -Posterior Tibial Palpable Yes -Posterior Tibial Doppler Multiphasic -Dorsalis Pedis Palpable Yes -Dorsalis Pedis Doppler Multiphasic -Extremity Color Pale, Hemosiderin -Hair Growth on Legs No -Hair Growth on Toes No -Temperature of Extremity Cool -Capillary Refill Less than 3 Seconds -Dependent Rubor No -Blanched when Elevated No -Lipodermatosclerosis No -Other Deformity No -Prior Foot Ulcer No -Charcot Joint No -Prior Amputation No -Thick No -Discolored No -Deformed No -Improper Length & Hygeine Yes Neuropathy Assessment Feet - Top Side and Bottom <Entered> (a) Communication Assessment Preferred language Italian Metal Trimmer Required No Able to Read Yes Able to Write Yes Communication Tools None Caregiver Communication Skills No Impairment Impairment Right Hearing Abillity Normal Left Hearing Abillity Normal Visual Assistive Devices Glasses Teaching Assessment Preferences Verbal,Written, Demonstration Barriers to Learning None Readiness To Learn Good Willingness to Engage in Self Management Med Activies Readiness to Engage in Self Management Med Activities Anxiety Level Calm Cooperation Cooperative Perception Coherent Interest in Health Problem Asks Questions Does Patient Smoke tobacco or other Yes substances Smoking Status Never smoker Functional Assessment Recent Decline in Ability to Perform Denies Any Declines Assistive Device With Patient No Culture/Religion/Suction Dredge Dumping Supervisor Cultural/Religion Needs that may affect No Treatment Plan Would you allow our hospital coat fitter to No meet you for the purpose of spiritual/ emotional support? Suction Dredge Dumping Supervisor to contact place of anabaptist No Teaching: Wound Center Compression Wraps & Stockings -Person Taught Patient -Teaching Method Discussion, Demonstration -Response to teaching Verbalize understanding (a) 1 - + throughout WC - Nurse 1 - General Ulcer Measurement Start: 11/18/23 15:04 Freq: Status: Active Protocol: Activity Type Activity Date Activity User E-sign Co-sign Detail Recorded Client Recorded Date Recorded By Document 11/18/23 15:04 RB Desktop 11/18/23 15:11 RB 11/18/23 15:04 Wound Center Nurse 1 6. RLE lateral cluster -Combined with other wound No -Current Size (cm) - Length 2.5 -Current Size (cm) - Width 2.5 -Current Size (cm) - Depth 0.2 -Total Square Cm 6.25 -Photo Taken Yes -Tunneling No -Undermining/Tunneling No -Circular Undermining No -Exudate Amt Medium -Exudate Type Serosanguineous -Wound Margin Distinct, Outline Attached -Granulation Amt Medium (34-66%) -Granulation Quality [place] -Slough/Fibrin Yes -Necrosis Amt Medium (34-66%) -Necrotic Tissue Type Adherent Slough -Structure Exposed N/A -Texture (Stefany-wound Skin Appearance) Assessed -Moisture (Stefany-wound Skin Appearance) Assessed -Color (Stefany-wound Skin Appearance) Assessed -Temperature (Stefany-wound Skin No Abnormality Appearance) (Pt Warm) -Tenderness on Palpation (Stefany-wound No Skin Appearance) -Ulcer Cleansing Wound Cleanser -Foul Odor after Cleansing No -Anesthetic Used 5% Lidocaine Gel 5. RLE medial cluster -Combined with other wound No -Current Size (cm) - Length 2 -Current Size (cm) - Width 4 -Current Size (cm) - Depth 0.1 -Total Square Cm 8 -Photo Taken Yes -Tunneling No -Undermining/Tunneling No -Circular Undermining No -Exudate Amt Medium -Exudate Type Serosanguineous -Wound Margin Distinct, Outline Attached -Granulation Amt Medium (34-66%) -Granulation Quality [place] -Slough/Fibrin Yes -Necrosis Amt Medium (34-66%) -Necrotic Tissue Type Adherent Slough -Structure Exposed N/A -Texture (Stefany-wound Skin Appearance) Assessed -Moisture (Stefany-wound Skin Appearance) Assessed -Color (Stefany-wound Skin Appearance) Assessed, Hemosiderin Staining -Temperature (Stefany-wound Skin No Abnormality Appearance) (Pt Warm) -Tenderness on Palpation (Stefany-wound No Skin Appearance) -Ulcer Cleansing Wound Cleanser -Foul Odor after Cleansing No -Anesthetic Used 5% Lidocaine Gel Lower Limb Edema Present Yes Right Calf (cm) 39.5 Right Ankle (cm) 21.5 Left Calf (cm) 37.5 Left Ankle (cm) 21.8 WC - Nurse 2 - General Ulcer CM Notes Start: 11/18/23 15:04 Freq: Status: Active Protocol: Activity Type Activity Date Activity User E-sign Co-sign Detail Recorded Client Recorded Date Recorded By Document 11/18/23 15:38 JF Laptop 11/18/23 15:43 JF 11/18/23 15:38 Wound Center Nurse 2 6. RLE lateral cluster -Time 15:38 -Correct Patient Yes -Correct Side, Site, Position Yes -Correct Procedure Yes -Procedure Performed Yes -Type of Procedure Debridement -Clinical Debridement Subcutaneous -Tissue Removed Subcutaneous -Post Debridement (cm) - Length 2.6 -Post Debridement (cm) - Width 2.3 -Post Debridement (cm) - Depth 0.2 -Total Square (Post) (cm) 5.98 -Area of Debridement (cm) - Length 2.6 -Area of Debridement (cm) - Width 2.3 -Total Square (Area) (cm) 5.98 -Tunneling No -Undermining/Tunneling No -Circular Undermining No -Wound/Ulcer Outcome Not Healed -Ulcer Cleansing Rinsed/ Irrigated with Saline -Foul Odor after Cleansing No -Bioengineered Tissue No -Bleeding Controlled with Pressure -Treatment Response Procedure Tolerated Well -Offloading No -Debridement - Subq, 1st 20sq cm No 5. RLE [facility] cluster -Time 15:40 -Correct Patient Yes -Correct Side, Site, Position Yes -Correct Procedure Yes -Procedure Performed Yes -Type of Procedure Debridement -Clinical Debridement Subcutaneous -Tissue Removed Subcutaneous -Post Debridement (cm) - Length 1.7 -Post Debridement (cm) - Width 1.8 -Post Debridement (cm) - Depth 0.1 -Total Square (Post) (cm) 3.06 -Area of Debridement (cm) - Length 1.7 -Area of Debridement (cm) - Width 1.8 -Total Square (Area) (cm) 3.06 -Tunneling No -Undermining/Tunneling No -Circular Undermining No -Wound/Ulcer Outcome Not Healed -Ulcer Cleansing Rinsed/ Irrigated with Saline -Foul Odor after Cleansing No -Bioengineered Tissue No -Bleeding Controlled with Pressure -Treatment Response Procedure Tolerated Well -Offloading No -Debridement - Subq, 1st 20sq cm No Pain Scale: 0-10 Numeric Is Patient Pain Free? Yes WC - Nurse 3 - General Ulcer D/C NN Start: 11/18/23 15:04 Freq: Status: Active Protocol: Activity Type Activity Date Activity User E-sign Co-sign Detail Recorded Client Recorded Date Recorded By Document 11/18/23 15:50 KW Desktop 11/18/23 15:52 KW 11/18/23 15:50 Wound Care Center Nurse 3 6. RLE lateral cluster -Other Dressing house hydrogel- santyl ordered topped with moistened gauze -Primary Dressing Covered/Secured with Dry Gauze & Roll Gauze, Secured with Tape 5. RLE medial cluster -Other Dressing hydrogel- santyl ordered then topped with moistened gauze -Primary Dressing Covered/Secured with Dry Gauze Right -Tubular Bandage Single Layer -Size of Tubigrip Used Size E -Size E ($) 1 Left -Tubular Bandage Single Layer -Size of Tubigrip Used Size E -Size E ($) 1 Pain Scale: 0-10 Numeric Is Patient Pain Free? Yes WC - Visit Discharge Discharge Condition Stable Ambulatory Status Ambulatory, Wheelchair Transportation Private Auto Medication Reconcilliation completed & No provided to patient/care provider Clinical Summary of Care Provided Yes Assessment/Plan Assessment/Plan (1) Venous stasis ulcer: CODE(S): I83.009 - Varicose veins of unspecified lower extremity with ulcer of unspecified site; L97.909 - Non-pressure chronic ulcer of unspecified part of unspecified lower leg with unspecified severity QUALIFIERS: Venous stasis ulcer site: calf Varicose vein presence: without varicose veins Laterality: right Non-pressure ulcer stage: with fat layer exposed Qualified Code(s): I87.2 - Venous insufficiency (chronic) (peripheral); L97.212 - Non-pressure chronic ulcer of right calf with fat layer exposed (2) Venous stasis dermatitis: CODE(S): I87.2 - Venous insufficiency (chronic) (peripheral) (3) Chronic venous insufficiency: CODE(S): I87.2 - Venous insufficiency (chronic) (peripheral) (4) Leg edema, right: CODE(S): R60.0 - Localized edema (5) Leg edema, left: CODE(S): R60.0 - Localized edema (6) Right leg swelling: CODE(S): M79.89 - Other specified soft tissue disorders (7) Left leg swelling: CODE(S): M79.89 - Other specified soft tissue disorders (8) Dependent edema: CODE(S): R60.9 - Edema, unspecified (9) Presence of cardiac pacemaker: CODE(S): Z95.0 - Presence of cardiac pacemaker (10) Hypertension: CODE(S): I10 - Essential (primary) hypertension QUALIFIERS: Hypertension type: primary hypertension Qualified Code(s): I10 - Essential (primary) hypertension (11) CKD (chronic kidney disease) stage 4, GFR 15-29 ml/min: CODE(S): N18.4 - Chronic kidney disease, stage 4 (severe) (12) Bilateral primary osteoarthritis of knee: CODE(S): M17.0 - Bilateral primary osteoarthritis of knee (13) T2DM (type 2 diabetes mellitus): CODE(S): E11.9 - Type 2 diabetes mellitus without complications QUALIFIERS: Diabetes mellitus senior care insulin use: with terminal operations supervisor use Diabetes mellitus complication status: with hyperglycemia Qualified Code(s): E11.65 - Type 2 diabetes mellitus with hyperglycemia; Z79.4 - retirement (current) use of insulin (14) Polyneuropathy due to type 2 diabetes mellitus: CODE(S): E11.42 - Type 2 diabetes mellitus with diabetic polyneuropathy (15) Osteoporosis: CODE(S): M81.0 - Age-related osteoporosis without current pathological fracture QUALIFIERS: Osteoporosis type: age-related Presence of current pathological fracture: without current pathological fracture Qualified Code(s): M81.0 - Age-related osteoporosis without current pathological fracture (16) Obesity: CODE(S): E66.9 - Obesity, unspecified QUALIFIERS: Obesity type: due to excess calories Obesity classification: adult class 2 (BMI 35 - 39.9) Serious obesity comorbidity presence: with serious comorbidity Body mass index: BMI 37.0-37.9 Qualified Code(s): E66.01 - Morbid (severe) obesity due to excess calories; Z68.37 - Body mass index [BMI] 37.0-37.9, adult (17) Obesity (BMI 30.0-34.9): CODE(S): E66.9 - Obesity, unspecified (18) Over 65 years old: (19) History of non-ST elevation myocardial infarction (NSTEMI): CODE(S): I25.2 - Old myocardial infarction (20) History of carpal tunnel release: CODE(S): Z98.890 - Other specified postprocedural states (21) History of hysterectomy: CODE(S): Z90.710 - Acquired absence of both cervix and uterus PLAN: Plan This is a 78-year-old female with multiple pre-existing medical problems, which are documented elsewhere herein. She presented with bilateral lower extremity swelling and edema, thought to be dependent in nature, and related to chronic venous insufficiency. The manifesting symptoms are likely due to the patient's habits. Although she does sleep on a flat mattress at night, she spends most of her daytime hours in an idle sitting position. She is not very active. Therefore, conservative treatment measures have been recommended. These measures have included leg elevation, is much as possible. Her legs are to be elevated to heart level, is much as possible. This is to be implemented during both nighttime and daytime hours. Prolonged idle sitting has been discouraged. We are to implement compression to the lower extremities by means of Tubigrip's of 20 to 30 mmHg. These are to be donned on a daily basis, upon awaking, and doffed at bedtime. We are to implement the use of collagenase Santyl topically to the ulcerations of the right calf. The patient and her daughter, at the bedside, have been instructed in the appropriate means of application. The patient has been provided a coupon to mitigate the high cost of the product. The patient has been encouraged to consume a healthy diet, with adequate protein. She indicates that her diabetes control is not good, and she has been encouraged to collaborate with her primary care physician and her inside steward/stewardess to optimize her glycemic control. We are led to you understand that the patient's insurance does not provide for the performance of debridements, a matter which will be under consideration during the patient's subsequent visits. The patient's medical care will proceed based upon measures which are felt to be optimum for the patient and the standard of medical care. Vascular studies were last performed in October 2019, at which time her arterial study revealed no evidence of significant arterial occlusive disease. Venous duplex study at that time revealed the right great saphenous vein to be incompetent below the knee. While the patient's venous disease may have progressed, it is unlikely that intervention would be considered, given the patient's advanced age. This is a matter that will be considered in the future as her management progresses. A repeat of the patient's vascular studies may be considered, based upon her response to conservative treatment measures. The patient is to return in 1 week for reassessment. Total time: 46 minutes
== END 2023-12-02 23:59 | disposition home or self-care (01) ==
LOC: WC 14:08
PROVIDERS: PCP Family Medicine; Referring Provider Family Medicine; Visit Provider Surgery
DX: I12.9 Hypertensive chronic kidney disease with stage 1 through stage 4 chronic kidney disease, or unspecified chronic kidney disease (principal); L97.212 Non-pressure chronic ulcer of right calf with fat layer exposed; N18.4 Chronic kidney disease, stage 4 (severe); E66.01 Morbid (severe) obesity due to excess calories; E11.42 Type 2 diabetes mellitus with diabetic polyneuropathy; E11.65 Type 2 diabetes mellitus with hyperglycemia; E11.22 Type 2 diabetes mellitus with diabetic chronic kidney disease; Z79.4 Long term (current) use of insulin; I87.2 Venous insufficiency (chronic) (peripheral); M17.0 Bilateral primary osteoarthritis of knee; Z68.34 Body mass index [BMI] 34.0-34.9, adult; R60.0 Localized edema; M81.0 Age-related osteoporosis without current pathological fracture; Z79.83 Long term (current) use of bisphosphonates; Z79.899 Other long term (current) drug therapy; Z90.710 Acquired absence of both cervix and uterus; Z95.0 Presence of cardiac pacemaker
CPT/HCPCS: 99214; G0463

== ENCOUNTER 2023-12-30 15:37 | Outpatient (RCR) | payer MEDICARE, SELFPAY ==
[2023-12-03 00:55] VITALS: BP 137/68; PULSE 96; RESP 18; TEMP 36.6; BMI 34.9
[2023-12-30 15:42] VITALS: BP 133/51; PULSE 60; RESP 18; TEMP 36.6; BMI 34.9
--- NOTE | 2023-12-30 16:18 | HP.PCM_ITS ---
History of Present Illness Date of Service: 12/30/23 Chief Complaint: Bilateral lower extremity swelling and edema with ulcerations of the right lower extremity History of Wound: This is a 78-year-old female who presented with 2 open sores on her right lower extremity, which had been present for approximately 6 weeks. She denied trauma to the areas, indicating that they occurred spontaneously. She had been using Medihoney topically to her ulcerations recently. She has experienced chronic swelling and edema in her lower extremities bilaterally. She is relatively inactive. She sits for long periods each day. She sews and watches TV a good deal of each day. She claims to sleep on a flat mattress at night. She lives with her grandson, who looks after her needs. It is noted that she was recently hospitalized for urinary tract infection. She is morbidly obese, with a BMI of 34.9. She suffers from multiple pre-existing medical problems, which are documented below. Most recent laboratory results are from October 13, 2023, with results as follows: White blood count 5.8, hemoglobin 9.8, hematocrit 31.8, platelets 311,000, potassium 5.0, sodium 138, chloride 113, glucose 183, calcium 8.2, phosphorus 4.2, albumin 3.2. 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 Obesity (BMI 30.0-34.9) Venous stasis ulcer Venous stasis dermatitis Dependent edema Left leg swelling Right leg swelling Leg edema, left Leg edema, right Urinary tract infection Insulin dependent diabetes mellitus UTI (urinary tract infection) Edema Presence of cardiac pacemaker Sick sinus syndrome Bilateral primary osteoarthritis of knee Rheumatoid arthritis History of renal insufficiency History of diabetes mellitus History of non-ST elevation myocardial infarction (NSTEMI) (03/21/21) Diabetes Cellulitis Anxiety Depression Hip fracture requiring operative repair Age related osteoporosis Osteoarthritis Cardiac murmur Type 2 diabetes mellitus without complications Carpal tunnel syndrome Arthritis Anemia Traumatic ulcer of left lower leg Fracture of femur, subcapital, right, closed Edema of both lower extremities Dermatitis Femoral neck fracture Rheumatoid arthritis Ulcer of right lower extremity with fat layer exposed Venous stasis dermatitis of both lower extremities Open wound of left lower extremity Home Medications ?Medication ?Instructions ?Recorded ?Last Taken ?Type ferrous sulfate 325 mg (65 mg 325 mg PO DAILY supplement 08/14/17 03/20/21 History iron) tablet alendronate 70 mg tablet 70 mg PO MO BONES 08/10/20 2 Weeks Ago History ~03/07/21 furosemide 40 mg tablet 40 mg PO DAILY diuretic 11/09/20 03/21/21 History pramipexole 1 mg tablet 2 mg PO QHS rls 05/11/21 Unknown History propranolol 40 mg tablet 20 mg PO BID anxiety 06/29/21 Unknown History flash glucose scanning reader #2 ea 12/17/21 Unknown Rx (FreeStyle Antione 2 [place]) oxycodone 10 mg tablet 10 mg PO 4X/DAY chronic pain 03/20/22 Unknown History insulin lispro protamine-lispro 11 unit subcut BID t2dm 09/24/23 Unknown History 100 unit/mL (50-50) subcutaneous pen (Humalog Mix 50-50 KwikPen) blood sugar diagnostic (OneTouch #100 ea 10/24/23 Unknown Rx Verio test strips) flash glucose sensor (FreeStyle #6 ea 10/24/23 Unknown Rx Antione 2 Sensor kit) pen needle, diabetic 32 gauge x #100 ea 10/24/23 Unknown Rx (BD Ultra-Fine Tracee Pen Needle) calcitriol 0.25 mcg capsule 0.25 mcg PO QDAY 11/07/23 Unknown History ergocalciferol (vitamin D2) 1,250 1,250 mcg PO QWEEK 11/18/23 Unknown History mcg (50,000 unit) capsule meclizine 25 mg chewable tablet 12.5 - 25 mg PO BID PRN dizziness 11/18/23 Unknown History (Antivert) triamcinolone acetonide 0.1 % applic topical TID PRN PRN itching 11/18/23 Unknown History topical cream Allergy/AdvReac Type Severity Reaction Status Date / Time finerenone (From Kerendia) AdvReac Severe Other Verified 11/07/23 15:41 Family History Mother Diabetes Father Diabetes Surgical History History of hysterectomy History of carpal tunnel release History of total right hip replacement History of total left hip replacement History of back surgery History of gastric bypass Social History household members: other details: Lives with her son. Smoking Status: Never smoker alcohol intake: never substance use type: does not use Vital Signs Vital Signs Vital Signs: 12/30/23 15:42 Temperature 97.8 F Temperature Source Temporal Pulse Rate 60 Respiratory Rate 18 Blood Pressure 133/51 H Blood Pressure Mean 78 Blood Pressure Source Monitor Blood Pressure Position Semi-Fowlers Blood Pressure Location Left Arm Weight Weight: 173 lb Body Mass Index (BMI) 34.9 Physical Exam Const alert, oriented x3, no apparent distress and well nourished Constitutional Narrative: The patient is mildly obese. General Appearance: cooperative, comfortable, well kempt and well developed Orientation / Consciousness: awake, oriented to person, oriented to place and oriented to time HEENT normocephalic, head/scalp atraumatic and hearing grossly normal bilaterally Head and Scalp: normal to inspection, normocephalic and atraumatic Nose: external nose normal External Ear: external ears normal Eyes PERRL and EOMs intact bilaterally General Eye: normal appearance of both eyes Neck full ROM Resp normal respiratory effort, normal air movement, no retractions and no use of accessory muscles Effort and Inspection: able to speak in complete sentences Auscultation: clear to auscultation bilaterally Cardio regular rate, regular rhythm, S1 normal heart sound and S2 normal heart sound GI non-distended Extremity no calf tenderness General Extremity: Negative for clubbing or cyanosis Skin Wound Narrative: Mild swelling and edema are noted in the patient's lower extremities bilaterally. There is no pitting edema noted. Slight erythema is noted in the gaiter areas bilaterally, consistent with suspected venous stasis dermatitis. This appears to be inflammatory in nature, rather than cellulitic. Ulcerations are noted on the medial aspect of the right calf and on the lateral aspect of the right calf. Dimensions are documented elsewhere. There is a moderate amount of bioburden and nonviable tissue. There is no obvious sign of infection or cellulitis. Multiphasic pulses are noted in the lower extremities bilaterally. Neuro oriented x3, CN's II-XII intact bilaterally, moves all extremities and no focal motor deficits Sensorium / Orientation: awake, alert, oriented to person, oriented to place and oriented to time Psych Appearance: grossly normal and appropriate Attitude: calm Activity / Motor Behavior: appropriate eye contact Speech: normal speech Mood & Affect: euthymic mood Thought Process: normal thought process Thought Content: normal thought content Attention / Concentration: attention grossly intact Debridement Note Debridement Note Wound debrided: Right medial and lateral calf ulcerations Laterality: Right Type of Debridement: Excisional debridement Anesthesia Used: 5% Lidocaine Gel and Cetacaine Depth: Down to and including healthy tissue and in the subcutaneous layer Percentage of wound debrided: 100 Instrument Used: 5mm curette Severity: Fat Layer Exposed Amount of bleeding with debridement: Mild Bleeding Controlled with: Compression and gauze Patient tolerated procedure: Patient tolerated procedure well Post-Debridement Measurements and Additional Note: Post-Debridement Measurements/Treatment - Nurse 1 - General Ulcer Assessment Start: 12/30/23 15:42 Freq: Status: Active Protocol: JESÚS Activity Type Activity Date Activity User E-sign Co-sign Detail Recorded Client Recorded Date Recorded By Document 12/30/23 15:42 [id number] 12/30/23 15:46 ATIYA 12/30/23 15:42 - Today's Visit Information Type of service Follow-up Visit (Physician/EXPORT COORDINATOR ) Arrival Mode Ambulatory, Walker Transfer Assistance None Patient Identification Verified (Name & Yes ) Patient Requires Transmission-Based No Precautions Finger Stick Blood Sugar(mg/dl) (if 139 indicated): Blood Sugar Stated by Patient Height and Weight Body Mass Index (BMI) 34.9 BMI Classification Obese Vital Signs Temperature (97.8 F-99.1 F) 97.8 F Temperature Source Temporal Pulse Rate (60-100) 60 Pulse Location Monitor Respiratory Rate (12-18) 18 Respiratory rate source Observation Blood Pressure (90/60-120/80) 133/51 H Blood Pressure Mean 78 Source Monitor Position Semi-Fowlers Blood Pressure Location Left Arm History Since Last Visit- (Skip if this is Patient's initial visit) Have you changed medications since your Yes last visit? Any new allergies or adverse reactions No Had a fall/change in ADL's that may No increase risk of falls Signs or symptoms of abuse and/or No neglect since last visit Have you been in the hospital since your No last visit? Has dressing in place as prescribed Yes Has compression in place as prescribed Yes Has offloadiing in place as prescribed No Experienced any changes in pain level or No management Pain Scale: 0-10 Numeric Is Patient Pain Free? Yes bilat legs -Description Aching -Intensity 6 -Duration (hours) Acute -Pain Behavior Irritability -Pain Aggravating Factors ADL's -Alleviating Factors/Interventions Medication,None -Effectiveness of Alleviating Factor/ Moderately Intervention effective WC - Nurse 1 - General Ulcer Measurement Start: 12/30/23 15:42 Freq: Status: Active Protocol: Activity Type Activity Date Activity User E-sign Co-sign Detail Recorded Client Recorded Date Recorded By Document 12/30/23 15:42 [id number] 12/30/23 15:46 ATIYA 12/30/23 15:42 Wound Center Nurse 1 6. RLE lateral cluster -Combined with other wound No -Current Size (cm) - Length 1.3 -Current Size (cm) - Width 1 -Current Size (cm) - Depth 0.1 -Total Square Cm 1.3 -Tunneling No -Undermining/Tunneling No -Circular Undermining No -Exudate Amt Medium -Exudate Type Serosanguineous -Wound Margin Distinct, Outline Attached -Granulation Amt Medium (34-66%) -Granulation Quality [place] -Slough/Fibrin Yes -Necrosis Amt Medium (34-66%) -Necrotic Tissue Type Adherent Slough -Structure Exposed N/A -Texture (Stefany-wound Skin Appearance) Assessed -Moisture (Stefany-wound Skin Appearance) Assessed -Color (Stefany-wound Skin Appearance) Assessed -Temperature (Stefany-wound Skin No Abnormality Appearance) (Pt Warm) -Tenderness on Palpation (Stefany-wound No Skin Appearance) -Ulcer Cleansing Wound Cleanser -Foul Odor after Cleansing No -Anesthetic Used 5% Lidocaine Gel 5. RLE medial cluster -Combined with other wound No -Current Size (cm) - Length 1 -Current Size (cm) - Width 1 -Current Size (cm) - Depth 0.1 -Total Square Cm 1 -Tunneling No -Undermining/Tunneling No -Circular Undermining No -Exudate Amt Medium -Exudate Type Serosanguineous -Wound Margin Distinct, Outline Attached -Granulation Amt Medium (34-66%) -Granulation Quality [place] -Slough/Fibrin Yes -Necrosis Amt Medium (34-66%) -Necrotic Tissue Type Adherent Slough -Structure Exposed N/A -Texture (Stefany-wound Skin Appearance) Assessed -Moisture (Stefany-wound Skin Appearance) Assessed -Color (Stefany-wound Skin Appearance) Assessed -Temperature (Stefany-wound Skin No Abnormality Appearance) (Pt Warm) -Tenderness on Palpation (Stefany-wound No Skin Appearance) -Ulcer Cleansing Wound Cleanser -Foul Odor after Cleansing No -Anesthetic Used 5% Lidocaine Gel Lower Limb Edema Present Yes Right Calf (cm) 36.8 Right Ankle (cm) 22.5 Assessment/Plan Assessment/Plan (1) Venous stasis ulcer: CODE(S): I83.009 - Varicose veins of unspecified lower extremity with ulcer of unspecified site; L97.909 - Non-pressure chronic ulcer of unspecified part of unspecified lower leg with unspecified severity QUALIFIERS: Venous stasis ulcer site: calf Varicose vein presence: without varicose veins Laterality: right Non-pressure ulcer stage: with fat layer exposed Qualified Code(s): I87.2 - Venous insufficiency (low pressure kettle operator aubrey) (peripheral); L97.212 - Non-pressure chronic ulcer of right calf with fat layer exposed (2) Venous stasis dermatitis: CODE(S): I87.2 - Venous insufficiency (chronic) (peripheral) (3) Chronic venous insufficiency: CODE(S): I87.2 - Venous insufficiency (chronic) (peripheral) (4) Leg edema, right: CODE(S): R60.0 - Localized edema (5) Leg edema, left: CODE(S): R60.0 - Localized edema (6) Right leg swelling: CODE(S): M79.89 - Other specified soft tissue disorders (7) Left leg swelling: CODE(S): M79.89 - Other specified soft tissue disorders (8) Dependent edema: CODE(S): R60.9 - Edema, unspecified (9) Presence of cardiac pacemaker: CODE(S): Z95.0 - Presence of cardiac pacemaker (10) Hypertension: CODE(S): I10 - Essential (primary) hypertension QUALIFIERS: Hypertension type: primary hypertension Qualified Code(s): I10 - Essential (primary) hypertension (11) CKD (chronic kidney disease) stage 4, GFR 15-29 ml/min: CODE(S): N18.4 - Chronic kidney disease, stage 4 (severe) (12) Bilateral primary osteoarthritis of knee: CODE(S): M17.0 - Bilateral primary osteoarthritis of knee (13) T2DM (type 2 diabetes mellitus): CODE(S): E11.9 - Type 2 diabetes mellitus without complications QUALIFIERS: Diabetes mellitus termite exterminator helper insulin use: with termite exterminator helper use Diabetes mellitus complication status: with hyperglycemia Qualified Code(s): E11.65 - Type 2 diabetes mellitus with hyperglycemia; Z79.4 - termination clerk (current) use of insulin (14) Polyneuropathy due to type 2 diabetes mellitus: CODE(S): E11.42 - Type 2 diabetes mellitus with diabetic polyneuropathy (15) Osteoporosis: CODE(S): M81.0 - Age-related osteoporosis without current pathological fracture QUALIFIERS: Osteoporosis type: age-related Presence of current pathological fracture: without current pathological fracture Qualified Code(s): M81.0 - Age-related osteoporosis without current pathological fracture (16) Obesity: CODE(S): E66.9 - Obesity, unspecified QUALIFIERS: Obesity type: due to excess calories Obesity classification: adult class 2 (BMI 35 - 39.9) Serious obesity comorbidity presence: with serious comorbidity Body mass index: BMI 37.0-37.9 Qualified Code(s): E66.01 - Morbid (severe) obesity due to excess calories; Z68.37 - Body mass index [BMI] 37.0-37.9, adult (17) Obesity (BMI 30.0-34.9): CODE(S): E66.9 - Obesity, unspecified (18) Over 65 years old: (19) History of non-ST elevation myocardial infarction (NSTEMI): CODE(S): I25.2 - Old myocardial infarction (20) History of carpal tunnel release: CODE(S): Z98.890 - Other specified postprocedural states (21) History of hysterectomy: CODE(S): Z90.710 - Acquired absence of both cervix and uterus PLAN: Plan This is a 78-year-old female with multiple pre-existing medical problems, which are documented elsewhere herein. She presented with bilateral lower extremity swelling and edema, thought to be dependent in nature, and related to chronic venous insufficiency. The manifesting symptoms are likely due to the patient's habits. Although she does sleep on a flat mattress at night, she spends most of her daytime hours in an idle sitting position. She is not very active. Therefore, conservative treatment measures have been recommended. These measures have included leg elevation, as much as possible. Her legs are to be elevated to heart level, as much as possible. This is to be implemented during both nighttime and daytime hours. Prolonged idle sitting has been discouraged. We are to continue compression to the lower extremities by means of Tubigrip's of 20 to 30 mmHg. These are to be donned on a daily basis, upon awaking, and doffed at bedtime. We are to continue the use of collagenase Santyl topically to the ulcerations of the right calf. The patient and her daughter, at the bedside, have been instructed in the appropriate means of application. The patient has been provided a coupon to mitigate the high cost of the product. The patient has been encouraged to consume a healthy diet, with adequate protein. She indicates that her diabetes control is not good, and she has been encouraged to collaborate with her primary care physician and her elementary reading specialist to optimize her glycemic control. We are led to you understand that the patient's insurance does not provide for the performance of debridements, a matter which will be under consideration during the patient's subsequent visits. The patient's medical care will proceed based upon measures which are felt to be optimum for the patient and the standard of medical care. Vascular studies were last performed in October 2019, at which time her arterial study revealed no evidence of significant arterial occlusive disease. Venous duplex study at that time revealed the right great saphenous vein to be incompetent below the knee. While the patient's venous disease may have progressed, it is unlikely that intervention would be considered, given the patient's advanced age. This is a matter that will be considered in the future as her management progresses. A repeat of the patient's vascular studies may be considered, based upon her response to conservative treatment measures. The patient is to return in 1 week for reassessment. The patient has been advised to follow-up as recommended, as she has failed to do so since her initial appointment. Total time: 25 minutes
== END 2024-01-02 23:59 | disposition home or self-care (01) ==
LOC: WC 15:37
PROVIDERS: PCP Family Medicine; Referring Provider Family Medicine; Visit Provider Surgery
DX: I83.012 Varicose veins of right lower extremity with ulcer of calf (principal); L97.212 Non-pressure chronic ulcer of right calf with fat layer exposed; N18.4 Chronic kidney disease, stage 4 (severe); E66.01 Morbid (severe) obesity due to excess calories; E11.22 Type 2 diabetes mellitus with diabetic chronic kidney disease; E11.42 Type 2 diabetes mellitus with diabetic polyneuropathy; E11.65 Type 2 diabetes mellitus with hyperglycemia; E11.59 Type 2 diabetes mellitus with other circulatory complications; Z79.4 Long term (current) use of insulin; I87.2 Venous insufficiency (chronic) (peripheral); I12.9 Hypertensive chronic kidney disease with stage 1 through stage 4 chronic kidney disease, or unspecified chronic kidney disease; M17.0 Bilateral primary osteoarthritis of knee; R60.0 Localized edema; M81.0 Age-related osteoporosis without current pathological fracture; Z68.34 Body mass index [BMI] 34.0-34.9, adult; Z79.83 Long term (current) use of bisphosphonates; Z79.899 Other long term (current) drug therapy; Z95.0 Presence of cardiac pacemaker; Z90.710 Acquired absence of both cervix and uterus; Z96.643 Presence of artificial hip joint, bilateral; M79.89 Other specified soft tissue disorders
CPT/HCPCS: 11042

== ENCOUNTER → 2024-04-19 | Outpatient (CLI) | payer MEDICARE, SELFPAY ==
[2024-04-19 17:23] LABS: Hematocrit 29.4 % (37-47); Hemoglobin 9.2 g/dL (12.0-15.0); Mean Corp Hgb Conc 31.3 g/dL (32-36); Mean Corpuscular Hgb 28.1 pg (27.0-32.0); Mean Corpuscular Volume 89.9 fL (81-99); Mean Platelet Vol. 10.4 fl (6.2-12.0); Platelet Count 258 K/mm3 (150-450); RBC Distribution Width CV 14.3 % (11.6-14.6); RBC Distribution Width SD 46.5 fl (35.1-43.9); Red Blood Count 3.27 M/mm3 (4.2-5.4); White Blood Count 10.4 K/mm3 (4.4-11.0)
[2024-04-19 17:40] LABS: PTHIN 846.8 pg/mL (18.4-80.1)
[2024-04-19 17:44] LABS: Vitamin D,25 Hydroxy 9.5 ng/mL
[2024-04-19 17:46] LABS: Protein, Urine (Random) 67.3 mg/dL (<11.9); Protein:Creat Ratio 1834 mg/g CRE (0-200)
[2024-04-19 17:55] LABS: Albumin, Serum 2.8 g/dL (3.2-5.0); BUN 30 mg/dL (7-18); BUN/Creat Ratio 18.3 RATIO (10-20); Calcium,Total 6.3 mg/dL (8.5-10.1); Chloride 103 mmol/L (98-107); Creatinine, Serum 1.64 mg/dL (0.55-1.02); EST Glomerular Filtration Rate 32 mL/min (>60); Est Glom Filt Rate - Afr Amer 39 mL/min (>60); Glucose 250 mg/dL (74-106); Phosphorus 2.3 mg/dL (2.5-4.9); Potassium 4.9 mmol/L (3.5-5.1); Sodium Level 133 mmol/L (136-145)
== END | disposition home or self-care (01) ==
LOC: LAB 16:30
PROVIDERS: PCP Family Medicine; Referring Provider Nurse Practitioner Adult Health; Visit Provider Nurse Practitioner Adult Health
DX: N18.32 Chronic kidney disease, stage 3b (principal)
CPT/HCPCS: 36415; 80069; 82306; 82570; 83970; 84156; 85027

== ENCOUNTER 2024-04-25 21:20 | Inpatient (IN) | payer MEDICARE, SELFPAY ==
[2024-04-25 21:21] VITALS: BP 137/64; PULSE 74; RESP 20; TEMP 36.4; O2SAT 98
[2024-04-25 21:23] VITALS: BMI 34.2
--- NOTE | 2024-04-25 22:03 | EKG12_ITS ---
Test Reason : DYSRHYTHMIA Blood Pressure : / mmHG Vent. Rate : 064 BPM Atrial Rate : 064 BPM P-R Int : 210 ms QRS Dur : 162 ms QT Int : 490 ms P-R-T Axes : 056 -36 127 degrees QTc Int : 505 ms Atrial-sensed ventricular-paced rhythm with prolonged AV conduction Abnormal ECG Confirmed by Juan Padgett ([id number]), news editor ROSAMARIA JONES ([id number]) on 04/27/2024 10:05:07 AM Referred By: Confirmed By:Juan Padgett
--- NOTE | 2024-04-25 22:07 | EDS_ITS ---
HPI History of Present Illness Chief Complaint: Weakness Informant: patient, family and EMS Narrative Narrative: 79-year-old female presenting with shortness of breath all day today, mostly with exertion. No orthopnea. She has a cough but is nonproductive. She has had subjective fevers and chills for the past week or so. She has also had pain, redness, swelling both legs for similar period of time, but that comes and goes chronically and she has never had fevers and chills with it before. She states her doctor put her on Augmentin because of this but nothing seems to be helping. She has had chills and bodyaches for the past 3 weeks or more, since she had a Prolia shot in the office. She has no history of chronic lung disease. She has a pacemaker. She denies having any chest discomfort with any of this. No palpitations or syncope/near syncope. States she denies any GI symptoms and has been urinating well. 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 Obesity (BMI 30.0-34.9) Venous stasis ulcer Venous stasis dermatitis Dependent edema Left leg swelling Right leg swelling Leg edema, left Leg edema, right Urinary tract infection Insulin dependent diabetes mellitus UTI (urinary tract infection) Edema Presence of cardiac pacemaker Sick sinus syndrome Bilateral primary osteoarthritis of knee Rheumatoid arthritis History of renal insufficiency History of diabetes mellitus History of non-ST elevation myocardial infarction (NSTEMI) (03/21/21) Diabetes Cellulitis Anxiety Depression Hip fracture requiring operative repair Age related osteoporosis Osteoarthritis Cardiac murmur Type 2 diabetes mellitus without complications Carpal tunnel syndrome Arthritis Anemia Traumatic ulcer of left lower leg Fracture of femur, subcapital, right, closed Edema of both lower extremities Dermatitis Femoral neck fracture Rheumatoid arthritis Ulcer of right lower extremity with fat layer exposed Venous stasis dermatitis of both lower extremities Open wound of left lower extremity Home Medications ?Medication ?Instructions ?Recorded ?Last Taken ?Type ferrous sulfate 325 mg (65 mg 325 mg PO DAILY supplement 08/14/17 03/20/21 History iron) tablet furosemide 40 mg tablet 40 mg PO DAILY diuretic 11/09/20 03/21/21 History pramipexole 1 mg tablet 2 mg PO QHS rls 05/11/21 Unknown History flash glucose scanning reader #2 ea 12/17/21 Unknown Rx (FreeStyle Antione 2 [place]) oxycodone 10 mg tablet 10 mg PO 4X/DAY chronic pain 03/20/22 Unknown History insulin lispro protamine-lispro 11 unit subcut BID t2dm 09/24/23 Unknown History 100 unit/mL (50-50) subcutaneous pen (Humalog Mix 50-50 KwikPen) blood sugar diagnostic (OneTouch #100 ea 10/24/23 Unknown Rx Verio test strips) flash glucose sensor (FreeStyle #6 ea 10/24/23 Unknown Rx Antione 2 Sensor kit) pen needle, diabetic 32 gauge x #100 ea 10/24/23 Unknown Rx (BD Ultra-Fine Tracee Pen Needle) calcitriol 0.25 mcg capsule 0.25 mcg PO QDAY 11/07/23 Unknown History ergocalciferol (vitamin D2) 1,250 1,250 mcg PO QWEEK 11/18/23 Unknown History mcg (50,000 unit) capsule meclizine 25 mg chewable tablet 12.5 - 25 mg PO BID PRN dizziness 11/18/23 Unknown History (Antivert) triamcinolone acetonide 0.1 % applic topical TID PRN PRN itching 11/18/23 Unknown History topical cream denosumab 60 mg/mL subcutaneous 60 mg subcut Q4WSIFEN #1 mL 03/01/24 Unknown Rx syringe (Prolia) Allergy/AdvReac Type Severity Reaction Status Date / Time [facility] ([facility] AdvReac Severe Other Verified 04/25/24 21:23 Family History Mother Diabetes Father Diabetes Surgical History History of hysterectomy History of carpal tunnel release History of total right hip replacement History of total left hip replacement History of back surgery History of gastric bypass Social History household members: other details: Lives with her son. Smoking Status: Never smoker alcohol intake: never substance use type: does not use ROS ROS ED Constitutional Constitutional ED: Reports body ache(s), chills, fatigue, fever(s), subjective and weakness Eyes Eyes: Denies change in vision or diplopia ENT ENT ED: Denies rhinorrhea or sore throat Cardiovascular Cardiovascular: Denies chest pain, orthopnea or palpitations Respiratory/Chest Respiratory/Chest: Reports cough, dyspnea and dyspnea on exertion; Denies orthopnea or sputum Gastrointestinal Gastrointestinal: Denies abdominal pain, diarrhea, nausea or vomiting Genitourinary Genitourinary ED: Denies dysuria or hematuria Musculoskeletal Musculoskeletal: Denies back pain or neck pain Integumentary Denies abscess or rash Neurologic Neurologic: Denies headache(s), paresthesias or weakness Psychiatric Psychiatric: Denies anxiety or suicidal thoughts EXAM Physical Exam Const Vital Signs: 04/25/24 21:21 04/25/24 22:10 04/25/24 22:11 Temperature 97.6 F L Temperature Source Temporal Pulse Rate 74 Respiratory Rate 20 H Respiratory Effort Normal Respiratory Pattern Blood Pressure 137/64 H Blood Pressure Mean 88 Pulse Ox 98 96 Oxygen Delivery Method Room Air Room Air 04/25/24 22:30 04/25/24 23:21 04/26/24 00:54 Temperature 97.8 F Temperature Source Pulse Rate 75 71 67 Respiratory Rate 20 H 22 H 21 H Respiratory Effort Respiratory Pattern Tachypnea Blood Pressure 123/59 H 132/68 H Blood Pressure Mean 80 89 Pulse Ox 98 97 Oxygen Delivery Method Room Air 04/26/24 00:55 Temperature Temperature Source Pulse Rate 68 Respiratory Rate 16 Respiratory Effort Respiratory Pattern Blood Pressure 120/58 L Blood Pressure Mean 78 Pulse Ox 96 Oxygen Delivery Method Room Air Positive well nourished and well developed General Appearance ED: well developed and NAD HEENT Reports moist mucous membranes normocephalic and atraumatic Eyes PERRL and EOMs intact bilaterally Neck full ROM and supple Neck Narrative: JVD present Resp Resp Narrative: Mildly tachypneic no respiratory distress. Few rhonchi in the bases but otherwise fairly clear. Cardio regular rate, regular rhythm and no murmurs GI non-tender and non-distended Auscultation: normoactive bowel sounds Palpation: soft Back/Spine no CVA tenderness General Back: other FROM Extremity General Extremety ED: Yes edema; Negative for pulses abnormal or tenderness General Extremity: edema bilateral (Moderate-severe edema to the knees bilaterally and symmetrically with erythema that is very hyperemic, brisk cap refill, blanching, difficult to feel pulses due to the edema. Tender with deep palpation. No subcutaneous emphysema.); Negative for pulses abnormal Neuro oriented x3, CN's II-XII intact bilaterally and no sensory deficits noted Sensorium / Orientation: awake and alert Motor Exam: strength 5/5 throughout Skin no rashes or lesions noted and no wounds MDM MDM MDM Narrative Medical decision making narrative: Patient is very edematous in her legs, making 1 think she could also have pulmonary edema causing her dyspnea. Her last echo was 1.5 years ago and did not show any signs of congestive heart failure or a reason for peripheral edema which may not be cardiogenic. Lungs are diminished and may sound a little wet at the bases but not overtly so. Chest x-ray 1 view shows chronic abnormalities but no overt pulmonary edema or other focal consolidation on my interpretation, radiology in agreement. Her EKG shows pacing capture troponin is within normal limits, her renal function is chronically poor but not necessarily worse than usual, her hemoglobin has been trending down and is 8.5, but I would not expect her to be dyspneic at rest only today just because of that especially without any symptoms of bleeding from anywhere including her bowels. She has mild hyperkalemia, which does not need to be emergently addressed. BNP was obtained and is 750 abnormal, however she has chronic kidney disease which could be related. She does not have a recent 1 to put this in the context. While working her up I gave her a duo nebulizer treatment, she thinks maybe it helped a little. She is not hypoxic at rest. She states she has not been acutely orthopneic to suggest pulmonary edema/CHF. She has no risk for DVT or PE or a history of any of those. No recent long travel, immobilization, hospitalization, or surgery in the last couple months. As I discussed with her and family, I do not have an obvious reason for her dyspnea at this time; we ambulated her and checked her pulse ox, she was using her rollator. She did not desat, going down to 94%, but she was very dyspneic. She prefers to be admitted to the hospital for further evaluation. My suspicion is that this is fluid- related. I am giving her a dose of Lasix, discussed with hospitalist. Lab Data Attestation: I reviewed the patient's lab results. Labs: Laboratory Results - last 24 hr 04/25/24 22:20 WBC 6.9 RBC 2.98 L Hgb 8.5 L Hct 27.4 L MCV 91.9 MCH 28.5 MCHC 31.0 L RDW Std Deviation 48.0 H RDW Coeff of Fady 14.3 Plt Count 294 MPV 9.7 Immature Gran % (Auto) 0.400 Neut % (Auto) 74.5 H Lymph % (Auto) 12.7 L [place] % (Auto) 7.9 Eos % (Auto) 3.9 Baso % (Auto) 0.6 Absolute Neuts (auto) 5.2 Absolute Lymphs (auto) 0.88 Nucleated RBC % 0 Sodium 138 Potassium 5.4 H Chloride 113 H Carbon Dioxide 20.0 L Anion Gap 5 BUN 37 H Creatinine 1.38 H Est GFR (MDRD) Af Amer 48 L Est GFR (MDRD) Non-Af 39 L BUN/Creatinine Ratio 26.8 H Glucose 185 H Calcium 7.1 L Troponin I High Sens 40 B-Natriuretic Peptide 751.6 H Radiography Diagnostic Testing: Clinical Impression(s) from Imaging Studies Chest X-Ray 04/25/24 22:35 IMPRESSION: No radiographic evidence of acute cardiopulmonary disease. Electronically Signed: Berhane Butcher MD at 23:17 EDT Reading Location ID and State: [facility] / [place] Tel , Service support , Rhythm Strip Rhythm Strip: paced Rate: 65 Ectopy: None EKG Initial EKG: Attestation: I personally reviewed and interpreted this EKG as follows: Interpretation: Sinus Rhythm, No Acute Injury Pattern, Paced and LBBB (pattern) Management Discussion w/another healthcare provider: Hospitalist Discharge Plan Dx/Rx/DC Orders Clinical Impression: Acute respiratory insufficiency, Hyperkalemia, CKD (chronic kidney disease), stage III, Bilateral edema of lower extremity, Anemia, Medication side effect Disposition Disposition: Acute Care Hospital [facility]
[2024-04-25 22:10] VITALS: O2SAT 96
[2024-04-25] MEDS: Ipratropium/Albuterol Sulfate 3 ML AMPUL.NEB INHALATION (22:27)
[2024-04-25 22:30] VITALS: PULSE 75; RESP 20
[2024-04-25 22:31] LABS: Absolute Lymphocyte Count 0.88 X10^3/uL (0.83-4.51); Absolute Neutrophil Count 5.2 X10^3/uL (2.0-7.7); Basophil# 0.04 X10^3/uL; Basophil% 0.6 % (0-1); Eosinophil# 0.27 X10^3/uL; Eosinophils% 3.9 % (0-5); Hematocrit 27.4 % (37-47); Hemoglobin 8.5 g/dL (12.0-15.0); Lymphocyte # 0.88 X10^3/ul (0.83-4.51); Lymphocyte % 12.7 % (19-41); Mean Corpuscular Hgb 28.5 pg (27.0-32.0); Mean Corpuscular Volume 91.9 fL (81-99); Mean Platelet Vol. 9.7 fl (6.2-12.0); Monocyte# 0.55 X10^3/uL; Monocyte% 7.9 % (0-10); NRBC Flagged by Analyzer 0 % (0-5); Neutrophil # 5.16 X10^3/uL (2.7-7.7); Neutrophil % 74.5 % (47-70); Platelet Count 294 K/mm3 (150-450); RBC Distribution Width CV 14.3 % (11.6-14.6); Red Blood Count 2.98 M/mm3 (4.2-5.4); White Blood Count 6.9 K/mm3 (4.4-11.0)
--- NOTE | 2024-04-25 22:35 | RAD_ITS ---
INDICATION: sob EXAMINATION/TECHNIQUE: X-RAY - XR Chest 1 View COMPARISON: October 29, 2022.. FINDINGS: LINES/DEVICES: 2-lead left chest cardiac pacer. LUNGS: No consolidation, edema or effusion. No pneumothorax. MEDIASTINUM AND CARDIOVASCULAR STRUCTURES: Borderline cardiomegaly. Aortic atherosclerosis. BONES AND SOFT TISSUES: Epigastric surgical clips. [Left distal clavicular osteolyses. Low-lying left humeral head, sometimes secondary to effusion. High riding right glenohumeral joint. RAD/Chest 1 View (Portable) IMPRESSION: No radiographic evidence of acute cardiopulmonary disease. Electronically Signed: Berhane Butcher MD at 23:17 EDT ,
[2024-04-25 23:05] LABS: Anion Gap 5 (5-15); BUN 37 mg/dL (7-18); BUN/Creat Ratio 26.8 RATIO (10-20); Calcium,Total 7.1 mg/dL (8.5-10.1); Chloride 113 mmol/L (98-107); Creatinine, Serum 1.38 mg/dL (0.55-1.02); EST Glomerular Filtration Rate 39 mL/min (>60); Est Glom Filt Rate - Afr Amer 48 mL/min (>60); Glucose 185 mg/dL (74-106); Potassium 5.4 mmol/L (3.5-5.1); Sodium Level 138 mmol/L (136-145); Troponin-I HS 40 pg/mL (3.0-54.0)
[2024-04-25 23:21] VITALS: BP 123/59; PULSE 71; RESP 22; O2SAT 98
[2024-04-26] VITALS (18 sets, daily range): BP systolic 97–144; BP diastolic 54–74; PULSE 66–97; RESP 12–95; TEMP 36.3–37.5; O2SAT 83–100; BMI 34.2
[2024-04-26 00:10] LABS: BNP,B-Type NATRIURETIC PEPTIDE 751.6 pg/mL (0-100)
[2024-04-26] MEDS: Furosemide 40 MG/4 ML Vial IV ×3 (00:57→18:57)
--- NOTE | 2024-04-26 01:00 | HP.PCM.HOS_ITS ---
HPI - General General Date of Admission: 04/26/24 Date of Service: 04/26/24 Chief Complaint: Dyspnea. HPI Narrative The patient is a 79 y/o F w/ PMHx: Obesity, RLS, Chronic anemia/Fe supplementation, Anxiety and Depression, Hx Sick Sinus Syndrome s/p pacemaker, Rheumatoid arthritis, HTN, HLD, Diabetes mellitus type II w/ chronic neuropathy and chronic stasis wound history, Nonobstructive CAD w/ Hx NSTEMI, CKD stage III unclear subtype, Chronic BL LE edema who presents to the [facility] ED on 04/26/24 with history of worsening dyspnea over the last 24 hours, more so with exertion with no specific orthopnea with a nonproductive dry cough with increasing lower extremity swelling and redness worse when she is up and moving and does not elevate them with recent PCP evaluation with initiation on Augmentin however this is not seem to gricel anything with subjective chills and bodyaches as well as subjective fevers and chills but not checking any specific temperature over the last 3 weeks prompting eventual ED evaluation to be cautious. Workup in the ED included T97.6, heart rate 74, BP 137/64, respiratory rate 20, 90% on room air, CBC with WBC 6.9, hemoglobin 8.5, MCV 91.9, platelet 294 without shift, BMP with potassium 5.4, chloride 113, carbon oxide 20, anion gap 5, BUN/creatinine 37/1.3, GFR 39, glucose 185, calcium 7.1, BNP 751.6, troponin 40, chest x-ray with no acute cardiopulmonary findings, rapid SARS COVID/influenza/RSV PCR negative, blood culture x 2 pending per ED, EKG with sinus rhythm with left bundle branch block, paced with no acute evidence of ischemia. In the ED patient ministered DuoNeb therapy as well as Lasix 40 mg IV x 1. 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 Obesity (BMI 30.0-34.9) Venous stasis ulcer Venous stasis dermatitis Dependent edema Left leg swelling Right leg swelling Leg edema, left Leg edema, right Urinary tract infection Insulin dependent diabetes mellitus UTI (urinary tract infection) Edema Presence of cardiac pacemaker Sick sinus syndrome Bilateral primary osteoarthritis of knee Rheumatoid arthritis History of renal insufficiency History of diabetes mellitus History of non-ST elevation myocardial infarction (NSTEMI) (03/21/21) Diabetes Cellulitis Anxiety Depression Hip fracture requiring operative repair Age related osteoporosis Osteoarthritis Cardiac murmur Type 2 diabetes mellitus without complications Carpal tunnel syndrome Arthritis Anemia Traumatic ulcer of left lower leg Fracture of femur, subcapital, right, closed Edema of both lower extremities Dermatitis Femoral neck fracture Rheumatoid arthritis Ulcer of right lower extremity with fat layer exposed Venous stasis dermatitis of both lower extremities Open wound of left lower extremity Home Medications ?Medication ?Instructions ?Recorded ?Last Taken ?Type ferrous sulfate 325 mg (65 mg 325 mg PO DAILY supplement 08/14/17 03/20/21 History iron) tablet furosemide 40 mg tablet 40 mg PO DAILY diuretic 11/09/20 03/21/21 History pramipexole 1 mg tablet 2 mg PO QHS rls 05/11/21 Unknown History flash glucose scanning reader #2 ea 12/17/21 Unknown Rx (FreeStyle Antione 2 [place]) oxycodone 10 mg tablet 10 mg PO 4X/DAY chronic pain 03/20/22 Unknown History insulin lispro protamine-lispro 11 unit subcut BID t2dm 09/24/23 Unknown History 100 unit/mL (50-50) subcutaneous pen (Humalog Mix 50-50 KwikPen) blood sugar diagnostic (OneTouch #100 ea 10/24/23 Unknown Rx Verio test strips) flash glucose sensor (FreeStyle #6 ea 10/24/23 Unknown Rx Antione 2 Sensor kit) pen needle, diabetic 32 gauge x #100 ea 10/24/23 Unknown Rx (BD Ultra-Fine Tracee Pen Needle) calcitriol 0.25 mcg capsule 0.25 mcg PO QDAY 11/07/23 Unknown History ergocalciferol (vitamin D2) 1,250 1,250 mcg PO QWEEK 11/18/23 Unknown History mcg (50,000 unit) capsule meclizine 25 mg chewable tablet 12.5 - 25 mg PO BID PRN dizziness 11/18/23 Unknown History (Antivert) triamcinolone acetonide 0.1 % applic topical TID PRN PRN itching 11/18/23 Unknown History topical cream denosumab 60 mg/mL subcutaneous 60 mg subcut [id number] #1 mL 03/01/24 Unknown Rx syringe (Prolia) Allergy/AdvReac Type Severity Reaction Status Date / Time finerenone (From [facility]) AdvReac Severe Other Verified 04/25/24 21:23 Family History Mother Diabetes Father Diabetes Surgical History History of hysterectomy History of carpal tunnel release History of total right hip replacement History of total left hip replacement History of back surgery History of gastric bypass Social History household members: other details: Lives with her son. Smoking Status: Never smoker alcohol intake: never substance use type: does not use ROS ROS Narrative Admission Review of Systems: CONSTITUTIONAL: No weight loss, +subjective fever/chills, weakness or fatigue. HEENT: Eyes: No visual loss, blurred vision, double vision or yellow sclerae. Ears, Nose, Throat: No hearing loss, sneezing, congestion, runny nose or sore throat. SKIN: No rash or itching, lesions, wounds except + notable significant bilateral lower extremity venous stasis skin changes, symmetric erythema, notably hyperemic ankle to distal to the knee bilaterally circumferential, 2-3+ pitting edema. CARDIOVASCULAR: No chest pain, chest pressure or chest discomfort, palpitations, edema, orthopnea, syncopal events. RESPIRATORY: + Dyspnea, worse with exertion, dry cough. No marked sputum production, wheezing or hemoptysis. GASTROINTESTINAL: No anorexia, nausea, vomiting or diarrhea, abdominal pain, melena, BRBPR. GENITOURINARY: No dysuria, frequency, hesitancy, suprapubic discomfort. NEUROLOGICAL: No headache, dizziness, syncope, paralysis, ataxia, numbness or tingling in the extremities, focal weakness, change in bowel or bladder control, seizure. MUSCULOSKELETAL: + muscle, back pain, joint pain or stiffness. HEMATOLOGIC: + anemia, easy bleeding/bruising. LYMPHATICS: No enlarged nodes. No history of splenectomy. PSYCHIATRIC: + history of depression and anxiety. ENDOCRINOLOGIC: + reports of sweating, cold or heat intolerance. No polyuria or polydipsia. ALLERGIES: No history of asthma, hives, eczema or rhinitis. Vital Signs Vital Signs Vital Signs: 04/25/24 21:21 04/25/24 22:10 04/25/24 22:11 Temperature 97.6 F L Temperature Source Temporal Pulse Rate 74 Respiratory Rate 20 H Respiratory Effort Normal Respiratory Pattern Blood Pressure 137/64 H Blood Pressure Mean 88 Pulse Ox 98 96 Oxygen Delivery Method Room Air Room Air 04/25/24 22:30 04/25/24 23:21 04/26/24 00:54 Temperature 97.8 F Temperature Source Pulse Rate 75 71 67 Respiratory Rate 20 H 22 H 21 H Respiratory Effort Respiratory Pattern Tachypnea Blood Pressure 123/59 H 132/68 H Blood Pressure Mean 80 89 Pulse Ox 98 97 Oxygen Delivery Method Room Air Physical Exam Narrative Physical Examination: General: Awake, alert, oriented x 3, fatigued, laying in the ED bed, no acute distress, notes at rest no severe dyspnea present. Skin: Normal color, normal turgor, no icterus, no cyanosis except for occasional staged ecchymoses, bilateral lower extremity circumferential erythema ankle to distal to the knee, pitting edema, hyperemic, consistent with significant venous disease. HEENT: AT/NC, EOMI, PERRLA, mildly dry MM, no carotid bruits or JVD noted. Lungs: Diminished, greater bases, appropriate effort no rales, ronchi or wheezing. Heart: Currently regular rate and rhythm; no gallop, rub audible. Abdomen: Soft, obese, NTTP, ND, normal BS, no appreciated HSM. Extremities: No cyanosis, no clubbing, see skin, significant bilateral lower extremity edema as noted above. Neurological: Patient awake, alert, oriented as noted, improved, cognitive function per discussion with family now baseline intact; pupils equally reactive to light and accommodation, cranial nerves grossly normal, moving all 4 extremities, no focal deficits, strength moderately to severely globally decreased. Psychiatric: Affect appears fatigued, no acute evidence of depressive or anxiety feelings but does have underlying history. Results Lab / Micro Data 04/25/24 22:20 04/25/24 22:20 Labs: Laboratory Results - last 24 hr 04/25/24 22:20: WBC 6.9, RBC 2.98 L, Hgb 8.5 L, Hct 27.4 L, MCV 91.9, MCH 28.5, MCHC 31.0 L, RDW Std Deviation 48.0 H, RDW Coeff of Fady 14.3, Plt Count 294, MPV 9.7, Immature Gran % (Auto) 0.400, Neut % (Auto) 74.5 H, Lymph % (Auto) 12.7 L, [place] % (Auto) 7.9, Eos % (Auto) 3.9, Baso % (Auto) 0.6, Absolute Neuts (auto) 5.2, Absolute Lymphs (auto) 0.88, Nucleated RBC % 0, Sodium 138, Potassium 5.4 H , Chloride 113 H, Carbon Dioxide 20.0 L, Anion Gap 5, BUN 37 H, Creatinine 1.38 H, Est GFR (MDRD) Af Amer 48 L, Est GFR (MDRD) Non-Af 39 L, BUN/Creatinine Ratio 26.8 H, Glucose 185 H, Calcium 7.1 L, Troponin I High Sens 40, B-Natriuretic Peptide 751.6 H Micro: Microbiology 04/25/24 22:22 Mucosa - Nose SARS-CoV-2, Influenza & RSV (PCR) - Final Rhythm Strip Rhythm Strip: paced Rate: 65 Ectopy: None Imaging Radiology Impression Chest X-Ray 04/25/24 22:35 IMPRESSION: No radiographic evidence of acute cardiopulmonary disease. Electronically Signed: Berhane Butcher MD at 23:17 EDT Reading Location ID and State: [facility] / [place] Tel , Service support , Assessment & Plan Assessment/Plan (1) Bilateral edema of lower extremity: (2) Acute exacerbation of chronic heart failure: PLAN: Plan The patient is a 79 y/o F w/ PMHx: Obesity, RLS, Chronic anemia/Fe deficiency anemia, Anxiety and Depression, Hx Sick Sinus Syndrome s/p pacemaker, Rheumatoid arthritis, HTN, HLD, Diabetes mellitus type II w/ chronic neuropathy and chronic stasis wound history, Nonobstructive CAD w/ Hx NSTEMI, CKD stage III unclear subtype, Chronic BL LE edema who presents to the [facility] ED on 04/26/24 with history of worsening dyspnea over the last 24 hours, more so with exertion with no specific orthopnea with a nonproductive dry cough with increasing lower extremity swelling and redness worse when she is up and moving and does not elevate them with recent PCP evaluation with initiation on Augmentin however this is not seem to gricel anything with subjective chills and body aches as well as subjective fevers and chills but not checking any specific temperature over the last 3 weeks prompting eventual ED evaluation to be cautious. #1. Worsening dyspnea, increased lower extremity swelling complicated by underlying chronic venous stasis skin changes with suspected possible acute HF exacerbation, presumed preserved EF based on past echo but unclear type, low suspicion for infectious etiology: Patient administered IV lasix in the ED, will admit to PCU, maintain on cardiac telemetry obtain cardiac enzyme series, obtain serial EKGs, continue IV lasix diuresis, monitor I/Os, maintain on intake restriction, continue medical therapy, obtain TSH and magnesium level. Most recent ECHO noted 10/28/22 with normal LV size, LV systolic function normal, LA moderately enlarged, EF 65, PASP [address] neck Edgardo wraps with lower extremity elevation. Procalcitonin requested. Given subjective pulmonary complaints as well as subjective fevers and chills and body-aches will obtain full respiratory viral panel, sputum induced Cx if able to be cautious. PT/OT/case management consulted for discharge planning. UA also requested. #2. Acute on Chronic normocytic anemia/Fe deficiency anemia: Admission hemoglobin 8.5, MCV 91.9, baseline hemoglobin more recently 9-10, earlier in 2023 hemoglobin was 11.2 and is slowly been trending downward it seems, noted last 04/19/24 hemoglobin 9.2, will obtain iron panel, ferritin, guaiac to be cautious, trend CBC. Continue Fe supplementation. #3. Mild hyperkalemia: Potassium 5.4, mildly elevated, given presentation with plan usage of IV Lasix will continue to trend. #4. Chronic Kidney Disease Stage III, unclear subtype per GFR trend: Admission BUN/Cr 37/1.38, GFR 39, baseline renal function 1.5-2.0 although has vacillated and more recently 04/19/creatinine noted to be 1.64, repeat BMP in AM. #5. Diabetes mellitus type II with chronic polyneuropathy with history of chronic lower extremity stasis wounds: Admission hemoglobin 185, clarifying home insulin regimen and will continue once obtained, maintain on ADA diet, accu checks w/ ISS. #6. Nonobstructive CAD with history NSTEMI: Will cautiously continue aspirin therapy given hemoglobin decline but awaiting further evaluation as noted, not on statin therapy, continue propranolol, not on EDGARDO number/ARB. #7. Anxiety and depression: Noted in chart history, not on regimen currently, encourage continued outpatient follow-up with PCP and continued monitoring. #8. Hypertension: Continue home regimen including propranolol, IV Lasix as noted, PRN hydralazine. #9. Hyperlipidemia: Per current list does not appear to be on regimen, no known allergy, FLP in AM. #10. History of sick sinus syndrome: Status post pacemaker placement, interrogation requested. #11. Restless leg syndrome: We will continue patient home pramipexole regimen. #12. Chronic bilateral lower extremity lymphedema/edema: Will place snug edgardo wraps with elevation. #13. Rheumatoid arthritis: Noted in chart history, not on any chronic regimen per current list but clarifying, encourage continued outpatient follow-up with rheumatology as previously arranged. #14. Obesity: Weight loss and lifestyle changes encouraged. #15. DVT prophylaxis: SCDs pending further evaluation of worsened anemia as noted above. #16. CODE status: Patient HCPOA and living will are not currently in place but she notes her daughter and her son-in-law who are present would be her decision makers. Discussed CODE status at length including difference between FULL code, DNR-CCA and DNR-CC status. Following discussions about the differences in these status, requested DNR-CCA, no intubation status. Advanced Care Planning Face to Face Time: 16 minutes. Charges/Coding Visit Charges Inpatient E&M: 62749 Init Hosp L3 Procedures Hospitalists Procedures: 92408 Advncd Care Plan 30 Min
[2024-04-26 01:30] LABS: Magnesium 2.3 mg/dL (1.6-2.6)
--- NOTE | 2024-04-26 02:53 | ECHOCS_ITS ---
Reason For Study: CONGESTIVE HEART FAILURE Procedure This was a 2D Doppler, Color Flow transthoracic echocardiogram. The study was technically difficult. Contrast injection was performed. Exam performed portable in patient room. Left Ventricle Normal LV size. The estimated ejection fraction is 55 %. No evidence for diastolic dysfunction. No regional wall motion abnormalities noted. Right Ventricle Normal RV size. Normal systolic function. Atria The left atrium is mildly enlarged. Normal right atrium. No doppler evidence for ASD. Mitral Valve There is moderate to severe mitral annular calcification. There is no mitral valve stenosis. No mitral valve insufficiency. Tricuspid Valve There is no tricuspid stenosis. Trivial tricuspid valve insufficiency. Unable to estimate RV systolic pressure due to insufficient tricuspid regurgitant envelope. Aortic Valve Trisinus/trileaflet aortic valve. There is no aortic stenosis. No aortic valve insufficiency. Pulmonic Valve There is no pulmonic valvular stenosis. No pulmonic valve insufficiency. Great Vessels Normal aortic root. Pericardium/Pleural No pericardial effusion. Medication Diluted definity 2ml given slow IV push to enhance endocardial definition. MMode/2D Measurements & Calculations LVIDd: 4.6 cm IVSd: 1.0 cm LVOT diam: 1.8 cm LVIDs: 3.8 cm LVPWd: 1.1 cm RVDd: 3.9 cm FS: 18.3 % LVOT area: 2.5 cm2 asc Aorta Diam: 3.0 cm LAV(MOD-bp): 56.8 ml LVAd ap4: 36.4 cm2 LAV(MOD-bp) Indexed: 33.1 ml/m2 LVLd ap4: 8.1 cm LAV(MOD-sp2): 68.1 ml EDV(MOD-sp4): 130.0 ml LAV(MOD-sp4): 46.3 ml EDV(sp4-el): 138.1 ml LVAs ap4: 26.8 cm2 LVLs ap4: 7.4 cm ESV(MOD-sp4): 75.7 ml ESV(sp4-el): 82.5 ml EF(MOD-sp4): 41.7 % EF(sp4-el): 40.2 % LVAd ap2: 41.2 cm2 SV(MOD-sp4): 54.3 ml SV(MOD-sp2): 67.2 ml LVLd ap2: 8.4 cm EDV(MOD-sp2): 162.8 ml EDV(sp2-el): 172.0 ml LVAs ap2: 30.2 cm2 LVLs ap2: 7.6 cm ESV(MOD-sp2): 95.7 ml ESV(sp2-el): 101.9 ml EF(MOD-sp2): 41.2 % SV(sp4-el): 55.6 ml Ao sinus diam: 2.6 cm LA A4 area: 17.6 cm2 LA dimension(2D): 4.7 cm RA A4 area: 12.7 cm2 TAPSE: 2.0 cm Time Measurements MV dec time: 0.22 sec Doppler Measurements & Calculations MV E max eriberto: 107.9 cm/sec Lat Peak E' Eriberto: 8.9 cm/sec Med Peak E' Eriberto: 8.3 cm/sec MV A max eriberto: 118.2 cm/sec E/E' lat: 12.2 E/E' med: 12.9 MV E/A: 0.91 Ao V2 max: 149.7 cm/sec LV V1 max: 126.8 cm/sec MV dec slope: 495.8 cm/sec2 Ao max P.0 mmHg LV V1 max P.4 mmHg Ao V2 mean: 102.3 cm/sec LV V1 mean P.7 mmHg Ao mean P.8 mmHg LV V1 mean: 90.6 cm/sec Ao V2 VTI: 37.0 cm LV V1 VTI: 31.0 cm AV (velocity ratio): 0.84 WARREN(I,D): 2.1 cm2 WARREN(V,D): 2.1 cm2 SV(LVOT): 77.9 ml PA V2 max: 107.2 cm/sec TR max eriberto: 341.3 cm/sec PA max PG (full): 1.6 mmHg TR max P.6 mmHg ECHO/Echo Complete W/ Contrast Interpretation Summary Technically difficult study. The estimated ejection fraction is 55 %. No evidence for diastolic dysfunction. The left atrium is mildly enlarged. Ordering Physician: Hetal Garrido Referring Physician: Leonard Stewart Performed By: Mary Alice Cadet RDCS and Student
[2024-04-26 02:57] LABS: Procalcitonin 0.09 ng/mL (0.00-0.09)
[2024-04-26 03:57] LABS: Troponin-I HS 51 pg/mL (3.0-54.0)
[2024-04-26] MEDS: Albuterol 2.5 MG/3 ML VIAL.NEB. INHALATION (04:45)
[2024-04-26 05:07] LABS: Absolute Lymphocyte Count 1.08 X10^3/uL (0.83-4.51); Absolute Neutrophil Count 6.9 X10^3/uL (2.0-7.7); Basophil# 0.04 X10^3/uL; Basophil% 0.4 % (0-1); Eosinophil# 0.25 X10^3/uL; Eosinophils% 2.8 % (0-5); Hematocrit 30.6 % (37-47); Hemoglobin 9.5 g/dL (12.0-15.0); Lymphocyte # 1.08 X10^3/ul (0.83-4.51); Lymphocyte % 12.1 % (19-41); Mean Corpuscular Hgb 28.5 pg (27.0-32.0); Mean Corpuscular Volume 91.9 fL (81-99); Mean Platelet Vol. 9.5 fl (6.2-12.0); Monocyte# 0.55 X10^3/uL; Monocyte% 6.2 % (0-10); NRBC Flagged by Analyzer 0 % (0-5); Neutrophil # 6.94 X10^3/uL (2.7-7.7); Neutrophil % 78.2 % (47-70); Platelet Count 330 K/mm3 (150-450); RBC Distribution Width CV 14.3 % (11.6-14.6); Red Blood Count 3.33 M/mm3 (4.2-5.4); White Blood Count 8.9 K/mm3 (4.4-11.0)
--- NOTE | 2024-04-26 05:14 | PN.HOSP_ITS ---
Hospitalist Note Patient with transient increased of RR into 40s, mildly bradycardic, desaturating, placed on BIPAP with improvement, now resting comfortably. Disc ussed with RT.
[2024-04-26 05:35] LABS: ALB/GLOB Ratio 0.7 RATIO (0.9-2.4); AST(SGOT) 15 U/L (15-37); Alanine Aminotransfer ALT/SGPT 13 U/L (13-56); Albumin, Serum 2.9 g/dL (3.2-5.0); Alkaline Phosphatase 101 U/L (45-117); Anion Gap 8 (5-15); BUN 35 mg/dL (7-18); BUN/Creat Ratio 27.1 RATIO (10-20); Calcium,Total 7.2 mg/dL (8.5-10.1); Chloride 111 mmol/L (98-107); Creatinine, Serum 1.29 mg/dL (0.55-1.02); EST Glomerular Filtration Rate 43 mL/min (>60); Est Glom Filt Rate - Afr Amer 51 mL/min (>60); Estimated Creatinine Clearance 32.94 ml/min; Ferritin 76 ng/mL (8-252); Glucose 200 mg/dL (74-106); Iron 24 ug/dL (50-170); Iron Binding Capacity,Total 289 ug/dL (250-450); PERCENT IRON SATURATION 8.3 % (15.0-55.0); Potassium 5.2 mmol/L (3.5-5.1); Protein, Total 6.9 g/dL (6.4-8.2); Sodium Level 137 mmol/L (136-145); Troponin-I HS 48 pg/mL (3.0-54.0)
[2024-04-26] MEDS: Insulin Lispro 100 UNIT/ML INSULN.PEN SC ×4 (06:46→23:20)
[2024-04-26 07:06] LABS: Bedside Glucose 209 mg/dL (74-106)
[2024-04-26] MEDS: Ferrous Sulfate 325 MG Tablet PO (09:10)
[2024-04-26] MEDS: oxyCODONE 5 MG Tablet 10 MG PO ×4 (09:10→23:20)
[2024-04-26] MEDS: Calcitriol 0.25 MCG Capsule PO (09:10)
[2024-04-26 09:11] LABS: Troponin-I HS 72 pg/mL (3.0-54.0)
--- NOTE | 2024-04-26 11:15 | CASEMGMT ---
RN CM Face to Face with patient for initial transition planning/care coordination assessment. RN CM introduced self and role at [facility]. Patient lying in bed, alert and oriented. Patient willing to participate in assessment and is able to answer all questions appropriately. Care providers, pharmacy, and demographics verified. Strata: 2 PCP: Pat Specialists: Nikko/-Endocrinology; Areli, educational adviser; Javier, refrigerating oiler; Preferred Pharmacy:Joseph Singh; [facility] at discharge [facility]: [facility] [employer] [facility] Prescription Benefit: yes Living Will/HPOA: none LNOK: daughter, son Living Arrangements: Patient lives with grandson in 2 story home with bed and bath on first floor and ramp to enter the home. Patient is independent at home. Transportation: daughter DME/HHC: Patient has shower chair, grab bars, rollator, and scale at home. Patient has had [facility] HHC in the past. No previous SNF. Patient wishes to discharge home with HHC, willing to go to SNF if needed, will monitor progress with therapy. Patient states she prefers [facility] for HHC and [facility] for SNF if needed, declines lists at this time. Patient states she has no further needs or concerns at this time. CM to follow for discharge planning needs that may arise. Disposition Plan: TBD, anticipate HHC vs SNF pending progress with therapy. Precious RODRIGUEZ, RN, CM
[2024-04-26 12:28] LABS: Bedside Glucose 284 mg/dL (74-106)
--- NOTE | 2024-04-26 15:21 | CHAPLAIN ---
Type of Pastoral Visit _x__ Initial Visit ___ Follow-up Visit ___ On-call Visit ___ General Patient Visit ___ Spiritual Assessment ___ Family Conference ___ Bereavement ___ Rapid Response ___ Code Blue ___ Other (describe below) Pastoral Care Referral From _x__ Patient ___ Family ___ Nurse ___ Physician ___ Emergency Management Specialist ___ Shipping Weigher ___ Other (describe below) Sacrament/Intervention _x__ Active listening ___ Anointing ___ Latter Day ___ Bereavement ___ Communion ___ Jessica exploration ___ _x__ Life review _x__ Prayer ___ Reconciliation ___ Sacrament of Sick _x__ Supportive presence ___ Wedding ___ Other (describe below) Pastoral Comments patient is talkative and gives details about her current living situation; pt has support from a grandson that lives with her; pt also talks about casual subjects and is interactive; pt welcomes prayer
[2024-04-26] MEDS: 0.9% Saline Lock 10 ML Syringe IV (18:57)
[2024-04-26 20:31] LABS: Bedside Glucose 333 mg/dL (74-106)
--- NOTE | 2024-04-26 21:08 | PN.HOSP_ITS ---
Hospitalist Note Mrs. Garcia is a 79-year-old white female who presented to the emergency department was prehospital on late evening of 04/25/2024 and was admitted early this morning due to dyspnea. She has a history of chronic leg edema and reported worsening dyspnea over the last 24 hours prior to presentation. She indicated it was predominantly with exertion but denied orthopnea. She has had a nonproductive dry cough with increasing lower extremity edema and redness. She states the redness is worse when she is up a when she is up and around. She was recently seen by her primary care physician and started Augmentin however this has not helped anything. She reported subjective fevers and chills but has not checked her temperature. Vital signs on presentation were unremarkable other than she had a respiratory rate of 20 and pulse ox of 90% on room air at rest. Her CBC was unremarkable for any acute findings but she did have a mild left shift with a 74.5% neutrophilia. BMP showed mild hyperkalemia with a potassium of 5.4, serum bicarb of 20 and anion gap of 5. BUN and creatinine were 37 and 1.35 respectively. Glucose was 185. BNP was markedly elevated at 451. Troponin was 40. Chest x-ray showed no acute findings. COVID/flu/RSV and respiratory panel have been unremarkable. Infection was not anticipated admission so antibiotics were held. The patient was placed on IV Lasix, fluid restricted, lower extremity wraps are in place and she was sodium restricted on admission. Echocardiogram was ordered and done today. Echocardiogram showed an EF of 55% with normal diastolic function and mild left atrial enlargement but pulmonary pressures were not estimated. She has -1550 cc for the hospitalization and states her breathing is better. Unfortunately she has not yet ambulated to assess her breathing with exertion. Her potassium has trended down and her creatinine remained stable despite diuresis. Interestingly, her bi carb has slightly trended down however she is mildly hyperchloremic. Repeat BMP in a.m. to reassess. Her repeat troponin did slightly elevated at 72. Will repeat in a.m. for stability however I highly suspect this is related to her heart failure and not an acute cardiac event. We will restart her home insulin. She was evaluated by physical therapy today on 2 L of oxygen and ambulated for 25 feet with contact-guard assist of 1. Saturations were stable on 2 L at 96 to 97%. Ongoing therapy was recommended at discharge and will have to see how she progresses tomorrow with therapy with regards to discharge planning.
[2024-04-26 23:16] LABS: Bedside Glucose 199 mg/dL (74-106)
[2024-04-26] MEDS: Pramipexole Di-HCl 1 MG Tablet 2 MG PO (23:20)
[2024-04-27] VITALS (11 sets, daily range): BP systolic 104–129; BP diastolic 48–97; PULSE 60–70; RESP 14–18; TEMP 36.6–36.9; O2SAT 92–96; BMI 34.5
[2024-04-27 06:23] LABS: Absolute Lymphocyte Count 1.11 X10^3/uL (0.83-4.51); Basophil# 0.04 X10^3/uL; Basophil% 0.6 % (0-1); Eosinophil# 0.32 X10^3/uL; Eosinophils% 4.5 % (0-5); Hematocrit 27.7 % (37-47); Hemoglobin 8.4 g/dL (12.0-15.0); Lymphocyte # 1.11 X10^3/ul (0.83-4.51); Lymphocyte % 15.8 % (19-41); Mean Corp Hgb Conc 30.3 g/dL (32-36); Mean Corpuscular Hgb 27.8 pg (27.0-32.0); Mean Corpuscular Volume 91.7 fL (81-99); Monocyte# 0.53 X10^3/uL; Monocyte% 7.5 % (0-10); NRBC Flagged by Analyzer 0 % (0-5); Neutrophil # 5.01 X10^3/uL (2.7-7.7); Neutrophil % 71.2 % (47-70); Platelet Count 326 K/mm3 (150-450); RBC Distribution Width CV 14.2 % (11.6-14.6); RBC Distribution Width SD 47.7 fl (35.1-43.9); Red Blood Count 3.02 M/mm3 (4.2-5.4)
[2024-04-27 06:48] LABS: ALB/GLOB Ratio 0.7 RATIO (0.9-2.4); AST(SGOT) 10 U/L (15-37); Alanine Aminotransfer ALT/SGPT 19 U/L (13-56); Albumin, Serum 2.5 g/dL (3.2-5.0); Alkaline Phosphatase 86 U/L (45-117); Anion Gap 6 (5-15); BUN 39 mg/dL (7-18); BUN/Creat Ratio 23.5 RATIO (10-20); Chloride 108 mmol/L (98-107); Cholesterol 131 mg/dL (200); Creatinine, Serum 1.66 mg/dL (0.55-1.02); EST Glomerular Filtration Rate 32 mL/min (>60); Est Glom Filt Rate - Afr Amer 38 mL/min (>60); Estimated Creatinine Clearance 25.72 ml/min; Globulin 3.8 g/dL (2.2-4.2); Glucose 155 mg/dL (74-106); High Density Lipoprotein 87 mg/dL; Potassium 5.2 mmol/L (3.5-5.1); Protein, Total 6.3 g/dL (6.4-8.2); Sodium Level 135 mmol/L (136-145); Triglycerides 53 mg/dL; Very Low Density Lipoprotein 11 mg/dL (5-40)
[2024-04-27] MEDS: Insulin Lispro 100 UNIT/ML INSULN.PEN SC ×4 (08:00→16:34)
[2024-04-27] MEDS: Insulin NPH Human 100 UNITS/ML PEN SC ×2 (08:01→16:34)
[2024-04-27 08:10] LABS: Troponin-I HS 126 pg/mL (3.0-54.0)
[2024-04-27 08:36] LABS: Bedside Glucose 135 mg/dL (74-106)
[2024-04-27] MEDS: oxyCODONE 5 MG Tablet 10 MG PO ×4 (10:13→21:22)
[2024-04-27] MEDS: Sodium Polystyrene Sulfonate 15 GM/60 ML UDC PO (10:14)
[2024-04-27] MEDS: DiphenhydrAMINE 50 MG/ML Syringe 25 MG IV ×2 (10:14→16:26)
[2024-04-27] MEDS: 0.9% Saline Lock 10 ML Syringe IV ×2 (10:14→16:33)
[2024-04-27] MEDS: Calcitriol 0.25 MCG Capsule PO (10:16)
[2024-04-27] MEDS: Furosemide 40 MG/4 ML Vial IV (10:16)
[2024-04-27 12:41] LABS: Bedside Glucose 170 mg/dL (74-106)
[2024-04-27 17:39] LABS: Bedside Glucose 204 mg/dL (74-106)
--- NOTE | 2024-04-27 18:28 | PN.HOSP_ITS ---
Reason for Visit Reason for Visit: Patient states she is feeling much better today. Reports she is about 75% better with regards to her breathing. We did discuss her slight troponin elevation and new onset heart failure upon presentation with need for stress test tomorrow. She voiced understanding. Subjective Subjective Patient states she feels at least 75% better since admission. Denies any significant shortness of breath. Was able to get to the chair without any shortness of breath. Awaiting therapy to see her. We did discuss stress test tomorrow and patient was agreeable. I did update the daughter on the telephone via conference call with the patient. Objective Data Objective Data Vital Signs: Vital Signs Temp Pulse Resp BP Pulse Ox O2 Del Method O2 Flow Rate 98.5 F 68 16 129/65 H 93 Room Air 2 04/27/24 15:20 04/27/24 15:20 04/27/24 15:20 04/27/24 15:20 04/27/24 15:20 04/27/24 15:20 04/26/24 15:56 FiO2 25 04/26/24 10:05 Oxygen Flow Rate (L/min) 2 Oxygen Delivery Method Room Air Weight: 77.6 kg Body Mass Index (BMI) 34.5 Intake & Output: Intake and Output for Last 24 Hours 04/25/24 04/26/24 04/27/24 23:59 23:59 23:59 Intake Total 850 / 850 400 / 400 Output Total 2550 / 2550 400 / 400 Balance -1700 / -1700 0 / 0 Lab / Micro Data 04/27/24 05:53 04/27/24 05:53 Labs: Laboratory Results - last 24 hr 04/26/24 16:00: POC Glucose 333 H 04/26/24 22:57: POC Glucose 199 H 04/27/24 05:53: WBC 7.0, RBC 3.02 L, Hgb 8.4 L, Hct 27.7 L, MCV 91.7, MCH 27.8, MCHC 30.3 L, RDW Std Deviation 47.7 H, RDW Coeff of Fady 14.2, Plt Count 326, MPV 10.0, Immature Gran % (Auto) 0.400, Neut % (Auto) 71.2 H, Lymph % (Auto) 15.8 L, [place] % (Auto) 7.5, Eos % (Auto) 4.5, Baso % (Auto) 0.6, Absolute Neuts (auto) 5.0, Absolute Lymphs (auto) 1.11, Nucleated RBC % 0, Sodium 135 L, Potassium 5.2 H, Chloride 108 H, Carbon Dioxide 21.0, Anion Gap 6, BUN 39 H, Creatinine 1.66 H , Estim Creat Clear Calc 25.72, Est GFR (MDRD) Af Amer 38 L, Est GFR (MDRD) Non- Af 32 L, BUN/Creatinine Ratio 23.5 H, Glucose 155 H, Calcium 7.0 L, Total Bilirubin 0.30, AST 10 L, ALT 19, Alkaline Phosphatase 86, Troponin I High Sens 126 H*, Total Protein 6.3 L, Albumin 2.5 L, Globulin 3.8, Albumin/Globulin Ratio 0.7 L, Triglycerides 53, Cholesterol 131, LDL Cholesterol 33, VLDL Cholesterol 11, HDL Cholesterol 87 04/27/24 07:58: POC Glucose 135 H 04/27/24 11:51: POC Glucose 170 H 04/27/24 16:32: POC Glucose 204 H Micro: Microbiology 04/27/24 09:36 Stool Stool Occult Blood (TAR[facility]) - Final 04/26/24 04:16 Mucosa - Nasopharyngeal Respiratory Panel (PCR) - Final 04/25/24 22:22 Mucosa - Nose SARS-CoV-2, Influenza & RSV (PCR) - Final Rhythm Strip Rhythm Strip: paced Rate: 65 Ectopy: None Physical Exam Const alert, oriented x3, no apparent distress and well nourished Constitutional Narrative: Obese, elderly, white female, sitting up in a chair at the bedside, appears comfortable, nontoxic, currently on room air HEENT head/scalp atraumatic, moist oral mucous membranes and oropharynx normal Resp normal respiratory effort, no retractions and no use of accessory muscles Resp Narrative: Few crackles at bases bilaterally Auscultation: crackles; Negative for rhonchi or wheezes Cardio regular rate, regular rhythm, S1 normal heart sound, S2 normal heart sound, no murmurs, no rub, no gallops and no clicks GI normal to inspection, nondistended, normoactive bowel sounds, soft to palpation and non-tender Extremity Extremity Narrative: Trace bilateral lower extremity edema that patient reports is improved Skin Skin Narrative: Bilateral lower extremity skin is erythematous which is her baseline per discussion with patient Neuro oriented x3, moves all extremities and no focal motor deficits Neuro Narrative: Generalized weakness noted with proximal musculature weaker than distal consistent with sarcopenia and decreased use Speech: speech normal Psych affect normal Psych Narrative: Extremely pleasant, eye contact is good and patient interacts appropriately Assessment & Plan Assessment/Plan (1) Acute exacerbation of chronic heart failure: (2) Bilateral edema of lower extremity: PLAN: Plan Shortness of breath/lower extremity edema secondary to acute on chronic HFpEF -Echocardiogram is fairly unremarkable but patient with chronic edema and on Lasix at baseline and markedly elevated BNP and presentation -Is responding well to diuresis and reports that she is about 75% better -Previous echocardiograms did show elevated right ventricular systolic pressure at 30 mmHg -Respiratory viral panel and COVID/flu are unremarkable -Discontinue IV Lasix and monitor off Lasix for next 24 hours -Plan to restart oral Lasix tomorrow -Will check ambulatory pulse ox prior to discharge however patient is currently stable on room air -Personal dyspnea and fatigue will check stress test -Blood cultures remain pending Troponin elevation -Likely related to the above -Elevation was only mild with peak troponin at 128 -Check stress test -Echocardiogram showed normal EF with no wall motion abnormality Hyperkalemia -Still mildly elevated but trending down -Repeat lab in a.m. Acute on chronic anemia -Hemoglobin earlier in 2023 seem to be between 10 and 11 -Currently appears to be stable between 8 and 9 -We have no data from October until this admission -Continue to monitor for stability -Iron studies were not entirely consistent with iron deficiency and appeared more consistent with chronic disease -Stool occult was negative CKD stage IIIb -Baseline serum creatinine appears to run between 1.5 and 2.0 however seems to fluctuate -Slight bump today with diuresis -Hold Lasix and restart p.o. Lasix tomorrow DM-2 -Continue home insulin with therapeutic substitutions -SSI -Cardiac/carb controlled diet Nonobstructive CAD/essential hypertension/HPL -Continue home medications with no change Chronic lower extremity venous stasis/edema -Stable Restless leg syndrome -Continue home medication Anxiety/depression -Patient on no medication -Outpatient follow-up to continue Obesity -BMI 34.6 -Patient may have TOSHIA patient performed Complicates treatment, prognosis, outcomes DVT prophylaxis -SCDs now -Start subcu heparin with negative guaiac CODE STATUS -DNR CCA with no intubation Charges/Coding Visit Charges Inpatient E&M: 26666 Subs Hosp L2
[2024-04-27] MEDS: Pramipexole Di-HCl 1 MG Tablet 2 MG PO (21:23)
[2024-04-27 22:32] LABS: Bedside Glucose 141 mg/dL (74-106)
[2024-04-28 02:45] VITALS: BP 131/92; PULSE 71; RESP 18; TEMP 36.7; O2SAT 97
[2024-04-28] MEDS: DiphenhydrAMINE 50 MG/ML Syringe 25 MG IV (02:45)
--- NOTE | 2024-04-28 05:55 | EKG12_ITS ---
Test Reason : AM EKG Blood Pressure : / mmHG Vent. Rate : 060 BPM Atrial Rate : 060 BPM P-R Int : 198 ms QRS Dur : 168 ms QT Int : 536 ms P-R-T Axes : 000 -43 132 degrees QTc Int : 536 ms AV dual-paced rhythm Abnormal ECG When compared with ECG of 25-APR-2024 22:31, Vent. rate has decreased BY 4 BPM Confirmed by Juan Padgett ([id number]), editor in chief LEANN BLANTON ([id number]) on 04/28/2024 10:34:56 AM Referred By: Confirmed By:Juan Padgett
[2024-04-28 06:00] VITALS: BMI 34.3
[2024-04-28 06:10] VITALS: BP 136/66; PULSE 62; RESP 20; TEMP 36.7; O2SAT 98
[2024-04-28 07:14] LABS: Hematocrit 26.6 % (37-47); Hemoglobin 8.1 g/dL (12.0-15.0); Mean Corp Hgb Conc 30.5 g/dL (32-36); Mean Corpuscular Hgb 28.4 pg (27.0-32.0); Mean Corpuscular Volume 93.3 fL (81-99); Mean Platelet Vol. 10.2 fl (6.2-12.0); Platelet Count 348 K/mm3 (150-450); RBC Distribution Width CV 14.2 % (11.6-14.6); RBC Distribution Width SD 48.3 fl (35.1-43.9); Red Blood Count 2.85 M/mm3 (4.2-5.4); White Blood Count 5.7 K/mm3 (4.4-11.0)
[2024-04-28 07:15] LABS: Bedside Glucose 112 mg/dL (74-106)
[2024-04-28 07:39] LABS: Anion Gap 8 (5-15); BUN 44 mg/dL (7-18); BUN/Creat Ratio 22.9 RATIO (10-20); Calcium,Total 6.7 mg/dL (8.5-10.1); Chloride 109 mmol/L (98-107); Creatinine, Serum 1.92 mg/dL (0.55-1.02); EST Glomerular Filtration Rate 27 mL/min (>60); Est Glom Filt Rate - Afr Amer 33 mL/min (>60); Estimated Creatinine Clearance 22.18 ml/min; Glucose 125 mg/dL (74-106); Potassium 4.4 mmol/L (3.5-5.1); Sodium Level 136 mmol/L (136-145)
[2024-04-28 09:10] VITALS: O2SAT 95; O2SAT 97
[2024-04-28 09:11] VITALS: BP 143/60; PULSE 64; RESP 18; TEMP 36.5; O2SAT 93
[2024-04-28] MEDS: oxyCODONE 5 MG Tablet 10 MG PO ×2 (09:17→15:06)
[2024-04-28] MEDS: Calcitriol 0.25 MCG Capsule PO (09:17)
--- NOTE | 2024-04-28 10:09 | CASEMGMT ---
Discharge Planning A list of?HH providers including quality and resource use data and consistent with the patient's preferred geographic region, medical needs, and insurance network was created in [facility] Guide.? This list was provided to the Geraldine Steven Discharge Planning Asst.
--- NOTE | 2024-04-28 10:23 | CASEMGMT ---
Addendum entered by Precious Edwards 04/28/24 13:28: JOSE CASAS received call back from [facility], they are able to accept patient with planned start of care for Friday. JOSE CASAS in to update patient, patient voiced appreciation. Patient denied further needs or concerns at discharge. Patient had no further questions. Original Note: JOSE CASAS updated by therapy that patient ambulated 80feet +30feet contact guard. JOSE CASAS in to discuss needs at discharge. Patient states she would like [facility] at discharge. List provided to patient. Patient prefers [facility]. Patient had no further questions or concerns. JOSE CASAS called and made referral to [facility], awaiting acceptance. CM will continue to follow this patient and plan for a safe discharge.
--- NOTE | 2024-04-28 10:29 | CASEMGMT ---
Discharge Planning A list of?HH providers including quality and resource use data and consistent with the patient's preferred geographic region, medical needs, and insurance network was created in [facility] Guide.? This list was provided to the RN YESSENIA. Geraldine Steven, Discharge Planning Asst.
--- NOTE | 2024-04-28 11:31 | STRESSREP ---
Stress Test Report Date: 04/28/2024 Procedure: Pharmacologic stress nuclear imaging study Indications: Elevated troponin Consent: Per the patient Procedure: The patient underwent pharmacologic (Regadenoson) evaluation with a peak heart rate of 64 beats per minute (45%predicted maximal heart rate) and a peak blood pressure of 122/68 mmHg. The baseline ECG demonstrated paced rhythm. EKG during lexiscan infusion revealed no significant ischemic changes. EKG post infusion revealed no significant ischemic changes [There were no cardiac dysrhythmias pretest, during pharmacologic infusion, or recovery]. [There was no complaint of chest discomfort during pharmacologic infusion or recovery]. The examination was discontinued secondary to completion of protocol. Impression: 1. Lexiscan stress test test is negative for Lexiscan infusion induced EKG changes of ischemia. 2. Lexiscan stress test test is negative for Lexiscan infusion induced chest pain. 3. Results of the nuclear portion of the test is as below Myocardial perfusion imaging study: Technique: The patient was injected with 12 millicuries of technetium 99m Cardiolite and subsequently rest SPECT Cardiolite nuclear imaging was obtained in the horizontal long, vertical long, and short axis views. The patient underwent pharmacologic [Regadenoson 0.4mg] evaluation. Please see above for details. The patient was injected with 34 millicuries of technetium 99m Cardiolite and subsequently stress SPECT Cardiolite nuclear imaging was obtained in the horizontal long, vertical long, and short axis views. A gated Cardiolite study at peak stress was obtained. Interpretation: Rest and stress SPECT Cardiolite nuclear imaging status post realignment, normalization, and attenuation correction demonstrate fixed defect involving the lateral wall, inferior wall. There is no significant reversibility suggestive of significant ischemia involving large areas of the myocardium. There is also extracardiac uptake that interferes with the assessment. Gated images reveal severe hypokinesis of the inferior wall, apex and septum, moderate hypokinesis of the lateral wall and mild hypokinesis of the anterior wall. The reported LVEF is 25%. Impression: 1. There is no evidence of significant ischemia. Fixed defects and regional wall motion abnormalities as described. However due to extracardiac uptake adjacent to the inferior wall, consider 2D echo to evaluate LVEF and regional wall motion if clinically indicated. 2. Estimated ejection fraction is 25%. This note was generated with [employer] software. It may contain incorrect words, spelling, and punctuation that were not noted in checking the note before signing.
[2024-04-28] MEDS: Insulin Lispro 100 UNIT/ML INSULN.PEN SC (11:49)
[2024-04-28 12:12] LABS: Bedside Glucose 178 mg/dL (74-106)
[2024-04-28] MEDS: Amox/Clavulanate 500 MG Tablet PO (13:21)
[2024-04-28 15:03] VITALS: BP 144/60; PULSE 65; RESP 18; TEMP 36.5; O2SAT 96
--- NOTE | 2024-04-28 15:19 | CASEMGMT ---
Social Work SW met with pt who is requesting to complete advance directives. SW assisted pt in completing a living will and health care POA naming her daughter Juliann Troy. Original document given to pt and copy placed on pt chart. HASEEB Ng
--- NOTE | 2024-04-28 16:02 | DS.PCM_ITS ---
Providers Date of Admission: 04/26/24 Date of Discharge: 04/28/24 Primary Care Physician: Dr. Leonard Stewart DO Reason For Visit: SUSPECTED HF EXACERBATION Diagnosis Discharge Diagnosis (1) Acute exacerbation of chronic heart failure: Status: Acute Code(s): I50.9 - Heart failure, unspecified (2) Bilateral edema of lower extremity: Status: Acute Code(s): R60.0 - Localized edema Medications at Discharge Home Medications ferrous sulfate 325 mg (65 mg iron) tablet 325 mg PO DAILY supplement 08/14/17 furosemide 40 mg tablet 40 mg PO DAILY diuretic 11/09/20 pramipexole 1 mg tablet 2 mg PO QHS rls 05/11/21 flash glucose scanning reader (Summlyyle Antione 2 [place]) #2 ea 12/17/21 oxycodone 10 mg tablet 10 mg PO 4X/DAY chronic pain 03/20/22 insulin lispro protamine-lispro 100 unit/mL (50-50) subcutaneous pen (Humalog Mix 50-50 KwikPen) See Rx Instructions subcut DAILY t2dm 09/24/23 blood sugar diagnostic (BlendspaceTouch Verio test strips) #100 ea 10/24/23 flash glucose sensor (FreeStyle Antione 2 Sensor kit) #6 ea 10/24/23 pen needle, diabetic 32 gauge x 5/32 (BD Ultra-Fine Tracee Pen Needle) #100 ea 10/24/23 calcitriol 0.25 mcg capsule 0.25 mcg PO QDAY 11/07/23 ergocalciferol (vitamin D2) 1,250 mcg (50,000 unit) capsule 1,250 mcg PO QWEEK 11/18/23 meclizine 25 mg chewable tablet (Antivert) 12.5 - 25 mg PO BID PRN dizziness 11/18/23 triamcinolone acetonide 0.1 % topical cream 3 applic topical TID PRN PRN itching 11/18/23 denosumab 60 mg/mL subcutaneous syringe (Prolia) 60 mg subcut [id number] #1 mL 03/01/24 amoxicillin 500 mg-potassium clavulanate 125 mg tablet 1 tab PO BID #9 tabs 04/28/24 Hospital Course Procedures 2-D Echocardiogram, EKG, Nuclear stress test and - (Chest x-ray) Summary of Care Provided Minutes Spent on Discharge: 39 Hospital Course: Mrs. Garcia is a 79-year-old white female who presented to the emergency department was prehospital on late evening of 04/25/2024 and was admitted early this morning due to dyspnea. She has a history of chronic leg edema and reported worsening dyspnea over the last 24 hours prior to presentation. She indicated it was predominantly with exertion but denied orthopnea. She has had a nonproductive dry cough with increasing lower extremity edema and redness. She states the redness is worse when she is up a when she is up and around. She was recently seen by her primary care physician and started Augmentin however this has not helped anything. She reported subjective fevers and chills but has not checked her temperature. Vital signs on presentation were unremarkable other than she had a respiratory rate of 20 and pulse ox of 90% on room air at rest. Her CBC was unremarkable for any acute findings but she did have a mild left shift with a 74.5% neutrophilia. BMP showed mild hyperkalemia with a potassium of 5.4, serum bicarb of 20 and anion gap of 5. BUN and creatinine were 37 and 1.35 respectively. Glucose was 185. BNP was markedly elevated at 451. Troponin was 40. Chest x-ray showed no acute findings. COVID/flu/RSV and respiratory panel have been unremarkable. Infection was not anticipated admission so antibiotics were held. The patient was placed on IV Lasix, fluid restricted, lower extremity wraps are in place and she was sodium restricted on admission. Echocardiogram showed an EF of 55% with normal diastolic function and mild left atrial enlargement but pulmonary pressures were not estimated. Her last echocardiogram did show elevated pulmonary pressures I suspect she does have some right-sided heart failure related to obesity and possible obstructive sleep apnea that is untreated. She has -1550 cc for the hospitalization and states her breathing is better. Her repeat troponin did slightly elevated at 72 and trended up and stabilized at 126. With diuresis, we were able to slowly wean her oxygen to room air and she was on room air with ambulation at the time of discharge. Given her mild troponin elevation we did do a stress test. Stress test showed estimated EF of 25% and some wall motion abnormality that was unclear so I did call the change management administrator to read the study, Dr. Otero and reviewed the stress test in comparison with the echocardiogram. He indicated that was probably artifact and there was no suggested areas of ischemia and to go with the EF read on the echocardiogram. We did discuss salt restriction and fluid restriction at the time of discharge. Patient states that she does watch her salt intake quite closely but does not watch her fluid intake on a regular basis. I have instructed her to try to intake 2 L or less daily and continue to watch her sodium intake. We have also advised her to weigh herself on a daily basis in the morning with no close on and if she gains more than 2 to 3 pounds in a 24-hour period to take an extra dose of Lasix and call her change management administrator office. She has chronic lower extremity edema with some erythema on a chronic basis however she was concerned that the erythema was slightly worse at the time of discharge. We did start Augmentin to complete a total of 10-day course. She states that she does foot quite frequently get cellulitis and does have healing wounds on both legs without any significant drainage. All wounds appear to be superficial in nature but would be nidus for infection with her history. Prescription for Augmentin was sent to local pharmacy prior to discharge. She was evaluated by physical and Occupational Therapy and they did feel that she would benefit from some therapy but felt home health would be sufficient. Home health was set up prior to discharge. She was discharged home in stable condition on 04/28/2024. Follow-up with cardiology was made for her prior to discharge and have asked that she follow-up with her primary care physician within the next week. She was instructed to come back to the emergency department if the erythema in her legs did not improve with antibiotics. I do suspect patient may have some obstructive sleep apnea at baseline and it would be beneficial for her to have an outpatient polysomnography if felt appropriate by primary care. Discharge diagnoses: Shortness of breath/worsening lower extremity edema secondary to acute on chronic HFpEF-resolved Troponin elevation Hyperkalemia-resolved Chronic anemia-stable CKD stage IIIb DM-2 Nonobstructive CAD Essential hypertension Hyperlipidemia Chronic lower extremity venous stasis Restless leg syndrome Anxiety Depression Obesity Physical Exam Const alert, oriented x3, no apparent distress, no limitations and well nourished; Negative for average body habitus Constitutional Narrative: Obese, elderly, white female, sitting up in a chair at the bedside, legs elevated,, appears comfortable, nontoxic, currently on room air General Appearance: cooperative, comfortable, well kempt and well developed Orientation / Consciousness: awake, oriented to person, oriented to place and oriented to time Exam Limitations: no limitations Nutritional Appearance: obese HEENT normocephalic and head/scalp atraumatic HEENT Narrative: Mallampati 3, no thrush Eyes PERRL, EOMs intact bilaterally and conjunctivae normal Eyes Narrative: No scleral icterus Neck no lymphadenopathy and supple Neck Narrative: Neck is short and thick, trachea is midline Resp normal respiratory effort, no retractions, no use of accessory muscles and clear to auscultation bilaterally Resp Narrative: Crackles have resolved Auscultation: Negative for crackles, rhonchi or wheezes Cardio regular rate, regular rhythm, S1 normal heart sound, S2 normal heart sound, no murmurs, no rub, no gallops and no clicks GI normal to inspection, nondistended, normoactive bowel sounds, soft to palpation and non-tender Extremity Extremity Narrative: Trace bilateral lower extremity edema that patient reports is improved Skin no jaundice Skin Narrative: Bilateral lower extremity skin is erythematous and is slightly greater than yesterday, few scattered well-healing wounds on lower extremities but could be nidus for cellulitis Neuro oriented x3, moves all extremities and no focal motor deficits Neuro Narrative: Generalized weakness noted with proximal musculature weaker than distal consistent with sarcopenia and decreased use Speech: speech normal Psych affect normal Psych Narrative: Extremely pleasant, eye contact is good and patient interacts appropriately Weight / BMI Weight Weight: 77.2 kg Body Mass Index (BMI) 34.3 ABG / Lab / Microbiology Data 04/28/24 04:20 04/28/24 04:20 Laboratory: Laboratory Results - last 24 hr 04/27/24 16:32: POC Glucose 204 H 04/27/24 21:21: POC Glucose 141 H 04/28/24 04:20: WBC 5.7, RBC 2.85 L, Hgb 8.1 L, Hct 26.6 L, MCV 93.3, MCH 28.4, MCHC 30.5 L, RDW Std Deviation 48.3 H, RDW Coeff of Fady 14.2, Plt Count 348, MPV 10.2, Sodium 136, Potassium 4.4, Chloride 109 H, Carbon Dioxide 19.0 L, Anion Gap 8, BUN 44 H, Creatinine 1.92 H, Estim Creat Clear Calc 22.18, Est GFR (MDRD) Af Amer 33 L, Est GFR (MDRD) Non-Af 27 L, BUN/Creatinine Ratio 22.9 H, Glucose 125 H, Calcium 6.7 L 04/28/24 06:07: POC Glucose 112 H 04/28/24 11:48: POC Glucose 178 H Microbiology: Microbiology 04/25/24 22:20 Blood Culture (Wb) - Arm Left Blood Culture - Preliminary No growth in 48 hours. 04/27/24 09:36 Stool Stool Occult Blood (TARAH) - Final 04/26/24 04:16 Mucosa - Nasopharyngeal Respiratory Panel (PCR) - Final 04/25/24 22:22 Mucosa - Nose SARS-CoV-2, Influenza & RSV (PCR) - Final D/C Instructions Discharge Diet: Low fat / Low cholesterol (Continue to sodium restrict diet with less than 3 g daily if possible/fluid restrict diet to 2 L or less daily.) Meaningful Use Info Meaningful Use Meaningful Use Diagnoses (Choose all that apply): CHF CHF GRANT/ARB ordered at discharge?: No Reason GRANT/ARB not ordered?: Normal EF Documented LVEF (%): 55 Ischemic Stroke Statin Dosing Therapy Reference: STATIN DOSE THERAPY REFERENCE: * Patients > 75 years receive moderate or high dose statin therapy. * Patients 75 years or YOUNGER should receive HIGH intensity statin dose unless contraindicated. You will be required to document reason for non-treatment if statin daily dose does not meet guidelines. HIGH DOSE STATIN THERAPY DAILY Atorvastatin > than or = to 40 mg Rosuvastatin > than or = to 20 mg Amlodipine + Atorvastatin > than or = to 2.5/40 mg Ezetimibe + Simvastatin 10/80 mg Simvastatin 80mg Discharge Plan Admission Admit Date/Time: 04/26/24 01:01 Primary Reason for Your Visit: Shortness of Breath Attending Provider: Jolanta Cuellar Primary Care Provider: Leonard Stewart Consulting Providers: Hetal Garrido Instructions Additional Instructions / Restrictions: 1. Please weigh yourself on a daily basis in the morning with no close on and keep track of this. If you gain more than 2 to 3 pounds in a 24-hour period please take an extra dose of Lasix and call your change management administrator office 2. Take all of your antibiotic. If you do not improve with antibiotics please follow-up with your primary care physician or come back to the emergency department 3. Please call your primary care physician and asked them to order a basic metabolic profile at the lab in the next 5 to 7 days to check your kidney function and electrolytes. Discharge Orders/Prescriptions Prescriptions: New amoxicillin-pot clavulanate 500-125 mg Tablet 1 tab PO BID Qty: 9 0RF Continued furosemide 40 mg tablet 40 mg PO DAILY Patient Comments: TAKE 1 TABLET BY MOUTH ONCE DAILY (DME) FreeStyle Antione 2 [place] Misc See Rx Instructions .ROUTE .MEDSUPPLY Qty: 2 6RF Rx Instructions: As directed oxycodone 10 mg tablet 10 mg PO 4X/DAY Patient Comments: TAKE 1 TABLET BY MOUTH FOUR TIMES DAILY NEEDED calcitriol 0.25 mcg capsule 0.25 mcg PO QDAY Prolia 60 mg/mL syringe 60 mg subcut [id number] Qty: 1 1RF ferrous sulfate 325 MG tablet 325 mg PO DAILY pramipexole 1 mg tablet 2 mg PO QHS Humalog Mix 50-50 KwikPen 100 unit/mL (50-50) insulin pen See Rx Instructions subcut DAILY Rx Instructions: subcutaneously daily; 7 units in the morning and 5 at night ergocalciferol (vitamin D2) 1,250 mcg (50,000 unit) capsule 1,250 mcg PO QWEEK meclizine [Antivert] 25 mg tablet,chewable 12.5 - 25 mg PO BID PRN (Reason: dizziness) triamcinolone acetonide 0.1 % cream 3 applic topical TID PRN PRN (Reason: itching) (DME) OneTouch Verio test strips Strip See Rx Instructions .ROUTE .MEDSUPPLY Qty: 100 3RF Rx Instructions: 3x/day (DME) FreeStyle Antione 2 Sensor Kit See Rx Instructions .Route Qty: 6 1RF Rx Instructions: As directed (DME) pen needle, diabetic [BD Ultra-Fine Tracee Pen Needle] 32 gauge x 5/32 needle See Rx Instructions .ROUTE .MEDSUPPLY Qty: 100 5RF Rx Instructions: As directed5 times daily Referrals / Follow Up: Leonard Stewart DO [Primary Care Provider] - 05/05/24 10:30 am Leola Knight NP, ADDICTION NURSE-C [Non-Staff -Ordering Privileges] - 05/24/24 10:30 am Disposition Disposition (needs filled in before D/C Order can be placed): Home Health Service Charges/Coding Visit Charges Inpatient E&M: 35107 Disch Hosp >30min
[2024-04-28 17:08] LABS: Bedside Glucose 133 mg/dL (74-106)
== END 2024-04-28 18:25 | disposition home health service (06) | DRG 291 ==
LOC: ED 04-26 01:08 → PCU 04-26 01:32
PROVIDERS: Admitting Provider Family Medicine; Emergency Provider Emergency Medicine; PCP Family Medicine; Visit Provider Internal Medicine
DX: I13.0 Hypertensive heart and chronic kidney disease with heart failure and stage 1 through stage 4 chronic kidney disease, or unspecified chronic kidney disease (principal); I50.33 Acute on chronic diastolic (congestive) heart failure; D63.1 Anemia in chronic kidney disease; E11.22 Type 2 diabetes mellitus with diabetic chronic kidney disease; E11.42 Type 2 diabetes mellitus with diabetic polyneuropathy; E66.9 Obesity, unspecified; D50.9 Iron deficiency anemia, unspecified; N18.32 Chronic kidney disease, stage 3b; M06.9 Rheumatoid arthritis, unspecified; G25.81 Restless legs syndrome; F32.A Depression, unspecified; Z79.4 Long term (current) use of insulin; E78.5 Hyperlipidemia, unspecified; I87.8 Other specified disorders of veins; E87.5 Hyperkalemia; G47.33 Obstructive sleep apnea (adult) (pediatric); F41.9 Anxiety disorder, unspecified; I25.2 Old myocardial infarction; I89.0 Lymphedema, not elsewhere classified; R00.1 Bradycardia, unspecified; Z79.82 Long term (current) use of aspirin; Z95.0 Presence of cardiac pacemaker; Z66 Do not resuscitate; Z68.34 Body mass index [BMI] 34.0-34.9, adult
CPT/HCPCS: 36415; 71045; 78452; 80048; 80053; 80061; 82274; 82728; 82962; 83540; 83550; 83735; 83880; 84145; 84443; 84484; 85025; 85027; 87040; 87631; 87633; 93005; 93017; 93306; 94002; 94640; 97110; 97116; 97162; 97166; 97530; 97535; 97802; 99285; A9500; Q9957; A4216; C8929; J1940; J2785

== ENCOUNTER → 2024-05-31 | Outpatient (CLI) | payer SELFPAY ==
[2024-05-31 18:13] LABS: Glucose, Dipstick 1000 mg/dl (Normal); Ketone-Dipstick Negative (Negative); Leukocyte Esterase-Dipstick 500 /ul (Negative); Nitrite-Dipstick Negative (Negative); Occult Blood-Urine 25 /ul (Negative); Protein-Dipstick 100 mg/dl (Negative); Specific Gravity, Urine 1.015 (1.002-1.030); Urine Bilirubin Dipstick Negative (Negative); Urine Clarity Cloudy (Clear); Urine Urobilinogen Normal (Normal)
[2024-05-31 18:17] LABS: Color, Urine SEE COMMENT BELOW (Yellow)
== END | disposition home or self-care (01) ==
PROVIDERS: Visit Provider Family Medicine
DX: I50.9 Heart failure, unspecified (principal)
CPT/HCPCS: 81002; 87077; 87086; 87088; 87186

== ENCOUNTER → 2024-07-15 | Outpatient (CLI) | payer MEDICARE, SELFPAY ==
[2024-07-15 17:53] LABS: Erythrocyte Sedimentation Rate 26 mm/hr (0-30)
[2024-07-15 18:10] LABS: OXY Internal Control LINE = VALID (VALID); Oxycodone Drug Screen Positive (<100 ng/mL)
[2024-07-15 18:13] LABS: Amphetamine Urine VISTA NEGATIVE (<1000 ng/mL); Barbiturate Urine VISTA NEGATIVE (< 200 ng/mL); Benzodiazepine Urine VISTA NEGATIVE (< 200 ng/mL); Cocaine Urine VISTA NEGATIVE (< 300 ng/mL); Ecstacy Urine VISTA NEGATIVE (< 500 ng/mL); Ferritin 21 ng/mL (8-252); Iron 25 ug/dL (50-170); Iron Binding Capacity,Total 277 ug/dL (250-450); Methadone Urine VISTA NEGATIVE (< 300 ng/mL); PCP Urine VISTA NEGATIVE (< 25 ng/mL); THC Urine VISTA NEGATIVE (< 50 ng/mL); Vista UDS pH Range 5
[2024-07-16 11:11] LABS: Color, Urine Yellow (Yellow); Glucose, Dipstick Normal (Normal); Ketone-Dipstick Negative (Negative); Leukocyte Esterase-Dipstick 25 /ul (Negative); Nitrite-Dipstick Negative (Negative); Occult Blood-Urine Negative /ul (Negative); Protein-Dipstick 100 mg/dl (Negative); Urine Bilirubin Dipstick Negative (Negative); Urine Clarity Clear (Clear); Urine Urobilinogen Normal (Normal)
== END | disposition home or self-care (01) ==
LOC: BFHLAB 16:10
PROVIDERS: PCP Family Medicine; Referring Provider Family Medicine; Visit Provider Family Medicine
DX: D50.9 Iron deficiency anemia, unspecified (principal); M06.9 Rheumatoid arthritis, unspecified; Z79.899 Other long term (current) drug therapy
CPT/HCPCS: 36415; 80307; 80365; 81002; 82728; 83540; 83550; 85652; 87086; G0480

== ENCOUNTER 2024-08-13 19:03 | Emergency (ER) | payer MEDICARE, SELFPAY ==
[2024-08-13 19:06] VITALS: PULSE 85; RESP 16; TEMP 38.8; O2SAT 96; BMI 34.4
--- NOTE | 2024-08-13 19:11 | EKG12_ITS ---
Test Reason : DYSRHYTHMIA Blood Pressure : */* mmHG Vent. Rate : 82 BPM Atrial Rate : 82 BPM P-R Int : 216 ms QRS Dur : 156 ms QT Int : 420 ms P-R-T Axes : 61 -6 140 degrees QTcB Int : 490 ms Atrial-sensed ventricular-paced rhythm with prolonged AV conduction Abnormal ECG Confirmed by Juan Padgett ([id number]), editor department ROSAMARIA JONES ([id number]) on 08/16/2024 10:28:30 AM Referred By: Confirmed By: Juan Padgett
--- NOTE | 2024-08-13 19:11 | CT_ITS ---
EXAM: CT HEAD AND CERVICAL SPINE WITHOUT INTRAVENOUS CONTRAST CLINICAL INDICATION: injury: Pain. TECHNIQUE: Helically acquired images were obtained of the head/brain and cervical spine without intravenous contrast. 2D reformatted images were reviewed. This CT exam was performed using one or more of the following dose reduction techniques: automated exposure control, adjustment of the mA and/or kV according to patient size, and/or use of iterative reconstruction technique. COMPARISON: No relevant prior studies available. FINDINGS: BRAIN AND EXTRA-AXIAL SPACES: There is non-specific periventricular hypoattenuation which is most commonly related to chronic microvascular ischemic disease in a patient of this age. There is no mass, mass-effect, or shift of the midline structures. No evidence of acute infarct or acute intracranial hemorrhage. There is no evidence of pathologic extra-axial fluid. There is no hydrocephalus. Patent basal cisterns. Posterior fossa structures are unremarkable. SKULL: No significant abnormality. No discrete lytic or blastic abnormalities. SINUSES: No significant findings. MASTOID AIR CELLS: No significant abnormality. Clear. ORBITS: Bilateral ocular lens extraction presumptively for the treatment of cataracts. Otherwise, no acute orbital pathology. VERTEBRAE: Multilevel facet, uncovertebral joint, and endplate osteophytosis. No fracture. No traumatic subluxation. No discrete lytic or blastic abnormality. Normal alignment. Normal craniocervical junction and cervicothoracic junction. DISCS/SPINAL CANAL/NEURAL FORAMINA: Mild to moderate multilevel spinal canal stenosis. Multilevel intervertebral disc height loss. Mild to moderate multilevel neural foraminal narrowing. Multilevel disc bulges and herniations. SOFT TISSUES: Right greater than left periorbital and preseptal soft tissue swelling. No prevertebral soft tissue swelling. VASCULATURE: Arteriosclerosis. Vascular calcifications. LYMPH NODES: No significant abnormality. No cervical adenopathy. LUNG APICES: Normal as visualized. Clear. TUBES, LINES AND DEVICES: Left-sided cardiac device leads partially visualized. CT/Spine Cervical without Contras IMPRESSION: 1. Chronic microvascular ischemic changes. No CT evidence of acute intracranial pathology. 2. Multilevel degenerative changes in the cervical spine without evidence of acute cervical spine injury. 3. Right greater than left periorbital and preseptal soft tissue swelling. Correlate clinically. Electronically Signed: Braxton Feliciano DO at 20:15 EST ,
[2024-08-13 19:15] VITALS: BP 125/52; PULSE 85; RESP 12; TEMP 38.8; O2SAT 99
[2024-08-13] MEDS: 0.9% Normal Saline (500mL Bag) 500 ML 1000 ML IV (19:16)
[2024-08-13] MEDS: Acetaminophen 500 MG Tablet 1000 MG PO (19:16)
--- NOTE | 2024-08-13 19:19 | ED.VIS.FALL ---
HPI HPI - Fall History of Present Illness Chief Complaint: Fall Informant: patient, family and EMS Narrative Narrative: Brought by EMS from home daughter called EMS after by the patient down. She is down for 3 hours. States ambulating to the restroom with her walker she felt weak she leaned against a wall and she fell down when she bumped her head she did not lose consciousness. She is not on any blood thinners. Denies headache. Reported neck pain to EMS therefore she is placed in a collar. She currently denies any neck pain no arm weakness. No back or chest pain. No extremity pain history of lymphedema with wraps for lower extremity. She states last week ago had flulike symptoms with diarrhea that is resolved. No cough. No urinary symptoms. No chest pains. On arrival she had a temp of 102. History of CKD. History of sick sinus syndrome with a pacemaker. Patient denies any myalgias. 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 Obesity (BMI 30.0-34.9) Venous stasis ulcer Venous stasis dermatitis Dependent edema Left leg swelling Right leg swelling Leg edema, left Leg edema, right Urinary tract infection Insulin dependent diabetes mellitus UTI (urinary tract infection) Edema Presence of cardiac pacemaker Sick sinus syndrome Bilateral primary osteoarthritis of knee Rheumatoid arthritis History of renal insufficiency History of diabetes mellitus History of non-ST elevation myocardial infarction (NSTEMI) (03/21/21) Diabetes Cellulitis Anxiety Depression Hip fracture requiring operative repair Age related osteoporosis Osteoarthritis Cardiac murmur Type 2 diabetes mellitus without complications Carpal tunnel syndrome Arthritis Anemia Traumatic ulcer of left lower leg Fracture of femur, subcapital, right, closed Edema of both lower extremities Dermatitis Femoral neck fracture Rheumatoid arthritis Ulcer of right lower extremity with fat layer exposed Venous stasis dermatitis of both lower extremities Open wound of left lower extremity Home Medications ?Medication ?Instructions ?Recorded ?Last Taken ?Type ferrous sulfate 325 mg (65 mg 325 mg PO DAILY supplement 08/14/17 03/20/21 History iron) tablet furosemide 40 mg tablet 40 mg PO DAILY diuretic 11/09/20 03/21/21 History pramipexole 1 mg tablet 2 mg PO QHS rls 05/11/21 Unknown History flash glucose scanning reader #2 ea 12/17/21 Unknown Rx (FreeStyle Antione 2 [place]) oxycodone 10 mg tablet 10 mg PO 4X/DAY chronic pain 03/20/22 Unknown History insulin lispro protamine-lispro See Rx Instructions subcut DAILY 09/24/23 Unknown History 100 unit/mL (50-50) subcutaneous t2dm pen (Humalog Mix 50-50 KwikPen) blood sugar diagnostic (OneTouch #100 ea 10/24/23 Unknown Rx Verio test strips) flash glucose sensor (FreeStyle #6 ea 10/24/23 Unknown Rx Antione 2 Sensor kit) pen needle, diabetic 32 gauge x #100 ea 10/24/23 Unknown Rx (BD Ultra-Fine Tracee Pen Needle) ergocalciferol (vitamin D2) 1,250 1,250 mcg PO QWEEK 11/18/23 Unknown History mcg (50,000 unit) capsule pregabalin 25 mg capsule 25 mg PO BID 08/13/24 Unknown History Allergy/AdvReac Type Severity Reaction Status Date / Time finerenone (From [facility]) AdvReac Severe Other Verified 08/13/24 19:05 Family History Mother Diabetes Father Diabetes Surgical History History of hysterectomy History of carpal tunnel release History of total right hip replacement History of total left hip replacement History of back surgery History of gastric bypass Social History household members: other details: Lives with her son. Smoking Status: Never smoker alcohol intake: never substance use type: does not use ROS ROS ED Constitutional Constitutional ED: Denies chills, fever(s) or sweats ENT ENT ED: Denies sore throat Cardiovascular Cardiovascular: Denies chest pain, leg edema, palpitations or racing heartbeat Respiratory/Chest Respiratory/Chest: Denies cough, dyspnea or dyspnea on exertion Gastrointestinal Gastrointestinal: Denies abdominal pain, diarrhea, nausea or vomiting Genitourinary Genitourinary ED: Denies dysuria, hematuria or urinary frequency Musculoskeletal Musculoskeletal: Denies back pain, extremity pain or neck pain Integumentary Denies rash or wounds Neurologic Neurologic: Reports weakness; Denies headache(s) or paresthesias EXAM Physical Exam Const Vital Signs: 08/13/24 19:06 08/13/24 19:08 08/13/24 19:09 Temperature 102 F H Temperature Source Axillary Pulse Rate 85 Respiratory Rate 16 Respiratory Effort Normal Non-Labored Normal Non-Labored Respiratory Depth Normal Respiratory Pattern Normal Normal Blood Pressure Blood Pressure Mean Pulse Ox 96 Oxygen Delivery Method Room Air 08/13/24 19:15 08/13/24 21:03 08/13/24 22:44 Temperature 102 F H 97.5 F L Temperature Source Axillary Pulse Rate 85 74 77 Respiratory Rate 12 22 H 18 Respiratory Effort Respiratory Depth Respiratory Pattern Blood Pressure 125/52 H 111/59 L 108/57 L Blood Pressure Mean 76 76 74 Pulse Ox 99 93 99 Oxygen Delivery Method Room Air Room Air Positive well nourished and well developed Constitutional Narrative: GCS 15, c-collar. General Appearance ED: well developed and NAD HEENT Reports moist mucous membranes HEENT Narrative: Left forearm contusion, no laceration. normocephalic Eyes General Eye ED: Yes normal appearance of both eyes Neck Neck Narrative: C-collar, no midline tenderness. Chest Wall inspection of chest normal and palpation of chest normal Chest: Negative for tenderness Resp normal respiratory effort and normal air movement Resp Narrative: Symmetric breath sounds Effort and Inspection: symmetric chest movement; Negative for respiratory distress Cardio regular rate, regular rhythm and no murmurs Peripheral Pulses: pulses 2+ throughout GI normal to inspection, nondistended, normoactive bowel sounds and non-tender Palpation: Negative for guarding or rebound tenderness present Extremity normal to inspection Extremity Narrative: 2+ lower extremity edema with Edgardo wrap's. There is erythema right leg that blanches. No streaking up the leg. General Extremety ED: Yes edema; Negative for tenderness General Extremity: edema Neuro oriented x3, CN's II-XII intact bilaterally and no sensory deficits noted Sensorium / Orientation: awake and alert Skin no rashes or lesions noted and no wounds MDM MDM MDM Narrative Medical decision making narrative: Interventions / MDM: Differential diagnosis: Contusion, febrile illness, fall, CKD, anemia. Diagnosis considered but do not suspect: Intracranial hemorrhage fracture however image studies normal. Pneumonia UTI however labs negative. My EKG interpretation: Paced rhythm rate of 82, no acute findings. Imaging independently reviewed and interpreted by myself: CT brain: No acute process. CT cervical spine no acute process. 1 view chest x-ray with no acute process also read by radiology. Hypertension follow-up External documents reviewed: N/A Test considered but not ordered:N/A ED course: Patient mechanical fall head injury. No anticoagulants. Trauma scan head and neck ordered. Presenting with fever 102 axillary. Heart rate 85 respirate 16. Will 4 SIRS criteria currently. Will check labs urine chest x-ray COVID flu RSV sent. Tylenol ordered for fever. Labs stable. Hemoglobin 9.1 higher than previous. Creatinine 1.87 stable from previous. CPK was 358, she came a liter of fluids. Urine noted mild blood. 100 leukocytes. Asymptomatic. Urine culture sent. Will not treat unless positive cultures. CT head and neck were negative. COVID flu RSV negative. Febrile illness no clear findings likely viral syndrome. She is ambulating with her walker at baseline after fluids. Discussed with daughter using Tylenol as needed monitor for new or worsening symptoms to return to ED. All questions were answered. Re-evaluation: stable Disposition discussed with patient/family/significant other: Patient and daughter, Case discussed with consulting clinician: N/A This note was generated with [employer] dictation software. It may contain incorrect words, spelling, and punctuation that were not noted in checking the note before signing. Lab Data Attestation: I reviewed the patient's lab results. Labs: Laboratory Results - last 24 hr 08/13/24 08/13/24 19:18 20:00 WBC 11.1 H RBC 3.35 L Hgb 9.1 L Hct 28.2 L MCV 84.2 MCH 27.2 MCHC 32.3 RDW Std Deviation 44.5 H RDW Coeff of Fady 14.5 Plt Count 343 MPV 10.4 Immature Gran % (Auto) 0.800 Neut % (Auto) 86.4 H Lymph % (Auto) 5.9 L [place] % (Auto) 6.4 Eos % (Auto) 0.3 Baso % (Auto) 0.2 Absolute Neuts (auto) 9.6 H Absolute Lymphs (auto) 0.66 L Nucleated RBC % 0 PT 16.2 H INR 1.3 APTT 40.6 H Sodium 134 L Potassium 4.3 Chloride 108 H Carbon Dioxide 18.0 L Anion Gap 8 BUN 45 H Creatinine 1.87 H Estim Creat Clear Calc 22.79 Est GFR (MDRD) Af Amer 33 L Est GFR (MDRD) Non-Af 28 L BUN/Creatinine Ratio 24.1 H Glucose 308 H Calcium 7.6 L Total Bilirubin 0.40 AST 19 ALT 13 Alkaline Phosphatase 96 Total Creatine Kinase 358 H Total Protein 6.2 L Albumin 2.4 L Globulin 3.8 Albumin/Globulin Ratio 0.6 L Urine Color Yellow Urine Clarity Sl. Cloudy Urine pH 6.0 Ur Specific [place] 1.015 Urine Protein 100 H Urine Glucose (UA) 250 H Urine Ketones Negative Urine Occult Blood 150 H Urine Nitrite Negative Urine Bilirubin Negative Urine Urobilinogen Normal Ur Leukocyte Esterase 100 H Urine RBC 0-5 SEEN Urine WBC 5-10 SEEN Ur Squamous Epith Cells 0-5 SEEN Urine Bacteria 0 SEEN Urine Mucus 0 SEEN Radiography Diagnostic Testing: Clinical Impression(s) from Imaging Studies Brain CT 08/13/24 19:11 IMPRESSION: 1. Chronic microvascular ischemic changes. No CT evidence of acute intracranial pathology. 2. Multilevel degenerative changes in the cervical spine without evidence of acute cervical spine injury. 3. Right greater than left periorbital and preseptal soft tissue swelling. Correlate clinically. Electronically Signed: Braxton Feliciano DO at 20:15 EST , Cervical Spine CT 08/13/24 19:11 IMPRESSION: 1. Chronic microvascular ischemic changes. No CT evidence of acute intracranial pathology. 2. Multilevel degenerative changes in the cervical spine without evidence of acute cervical spine injury. 3. Right greater than left periorbital and preseptal soft tissue swelling. Correlate clinically. Electronically Signed: Braxton Feliciano DO at 20:15 EST , Chest X-Ray 08/13/24 19:35 IMPRESSION: 1. Postoperative changes in the lumbar spine. Degenerative change throughout the spine and shoulders. Apparent subluxation of the left glenohumeral joint and likely postoperative changes of the distal left clavicle. 2. Diffuse interstitial prominence likely secondary to chronic interstitial changes and perhaps COPD. No focal pneumonia. Electronically Signed: Braxton Feliciano DO at 20:12 EST , Discharge Plan Dx/Rx/DC Orders Clinical Impression: Fall, CHI (closed head injury), Contusion of face, Acute febrile illness, CKD (chronic kidney disease) stage 4, GFR 15-29 ml/min Disposition Disposition: Acute Care Hospital [facility] Discharge Date/Time: 08/13/24 22:44
[2024-08-13 19:29] LABS: Absolute Lymphocyte Count 0.66 X10^3/uL (0.83-4.51); Absolute Neutrophil Count 9.6 X10^3/uL (2.0-7.7); Basophil# 0.02 X10^3/uL; Basophil% 0.2 % (0-1); Eosinophil# 0.03 X10^3/uL; Eosinophils% 0.3 % (0-5); Hematocrit 28.2 % (37-47); Hemoglobin 9.1 g/dL (12.0-15.0); Lymphocyte # 0.66 X10^3/ul (0.83-4.51); Lymphocyte % 5.9 % (19-41); Mean Corp Hgb Conc 32.3 g/dL (32-36); Mean Corpuscular Hgb 27.2 pg (27.0-32.0); Mean Corpuscular Volume 84.2 fL (81-99); Mean Platelet Vol. 10.4 fl (6.2-12.0); Monocyte# 0.71 X10^3/uL; Monocyte% 6.4 % (0-10); NRBC Flagged by Analyzer 0 % (0-5); Neutrophil # 9.61 X10^3/uL (2.7-7.7); Neutrophil % 86.4 % (47-70); Platelet Count 343 K/mm3 (150-450); RBC Distribution Width CV 14.5 % (11.6-14.6); RBC Distribution Width SD 44.5 fl (35.1-43.9); Red Blood Count 3.35 M/mm3 (4.2-5.4); White Blood Count 11.1 K/mm3 (4.4-11.0)
--- NOTE | 2024-08-13 19:35 | RAD_ITS ---
EXAM: XR CHEST, 1 VIEW CLINICAL INDICATION: fever injury. Pain. TECHNIQUE: Frontal view of the chest. COMPARISON: 04/25/2024 FINDINGS: LUNGS AND PLEURAL SPACES: Diffuse interstitial prominence likely secondary to chronic interstitial changes and perhaps COPD. No pneumothorax. No effusion. No focal pneumonia. HEART: No significant abnormality. Cardiac silhouette not enlarged. MEDIASTINUM: Central airways and mediastinal contour are unremarkable. BONES/JOINTS: Postoperative changes in the lumbar spine. Degenerative change throughout the spine and shoulders. Apparent subluxation of the left glenohumeral joint and likely postoperative changes of the distal left clavicle. No acute fracture. SOFT TISSUES: No significant abnormality. VASCULATURE: Atherosclerosis. TUBES, LINES AND DEVICES: Left-sided cardiac device. RAD/Chest 1 View (Portable) IMPRESSION: 1. Postoperative changes in the lumbar spine. Degenerative change throughout the spine and shoulders. Apparent subluxation of the left glenohumeral joint and likely postoperative changes of the distal left clavicle. 2. Diffuse interstitial prominence likely secondary to chronic interstitial changes and perhaps COPD. No focal pneumonia. Electronically Signed: Braxton Feliciano DO at 20:12 EST ,
[2024-08-13 19:37] LABS: International Normalized Ratio 1.3; Prothrombin Time (Protime)PT. 16.2 SECONDS (11.7-14.9)
[2024-08-13 19:39] LABS: Partial Thromboplast Time 40.6 Seconds (24.1-36.2)
[2024-08-13 19:45] LABS: ALB/GLOB Ratio 0.6 RATIO (0.9-2.4); AST(SGOT) 19 U/L (15-37); Alanine Aminotransfer ALT/SGPT 13 U/L (13-56); Albumin, Serum 2.4 g/dL (3.2-5.0); Alkaline Phosphatase 96 U/L (45-117); Anion Gap 8 (5-15); BUN 45 mg/dL (7-18); BUN/Creat Ratio 24.1 RATIO (10-20); Calcium,Total 7.6 mg/dL (8.5-10.1); Chloride 108 mmol/L (98-107); Creatinine, Serum 1.87 mg/dL (0.55-1.02); EST Glomerular Filtration Rate 28 mL/min (>60); Est Glom Filt Rate - Afr Amer 33 mL/min (>60); Estimated Creatinine Clearance 22.79 ml/min; Globulin 3.8 g/dL (2.2-4.2); Glucose 308 mg/dL (74-106); Potassium 4.3 mmol/L (3.5-5.1); Protein, Total 6.2 g/dL (6.4-8.2); Sodium Level 134 mmol/L (136-145)
[2024-08-13 19:56] LABS: CPK Total, Creatine Kinase 358 U/L (26-192)
[2024-08-13 20:06] LABS: Bacteria 0 SEEN /hpf (None Seen); Mucous, Urine 0 SEEN /hpf (<or=2+)
[2024-08-13 20:08] LABS: Color, Urine Yellow (Yellow); Glucose, Dipstick 250 mg/dl (Normal); Ketone-Dipstick Negative (Negative); Leukocyte Esterase-Dipstick 100 /ul (Negative); Nitrite-Dipstick Negative (Negative); Occult Blood-Urine 150 /ul (Negative); Protein-Dipstick 100 mg/dl (Negative); Specific Gravity, Urine 1.015 (1.002-1.030); Urine Bilirubin Dipstick Negative (Negative); Urine Clarity Sl. Cloudy (Clear); Urine Urobilinogen Normal (Normal)
[2024-08-13 20:19] LABS: Red Blood Cells-Urine 0-5 SEEN /hpf (0-5); Squamous Epithelial Cells - UA 0-5 SEEN /hpf (5-10); White Blood Cells 5-10 SEEN /hpf (0-5)
[2024-08-13] MEDS: 0.9% Normal Saline (1000mL) 1,000 ML 999 ML IV (20:47)
[2024-08-13 21:03] VITALS: BP 111/59; PULSE 74; RESP 22; O2SAT 93
[2024-08-13 22:44] VITALS: BP 108/57; PULSE 77; RESP 18; TEMP 36.4; O2SAT 99
== END 2024-08-13 22:44 | disposition home or self-care (01) ==
PROVIDERS: Emergency Provider Emergency Medicine; PCP Family Medicine; Visit Provider Emergency Medicine
DX: S00.83XA Contusion of other part of head, initial encounter (principal); N18.4 Chronic kidney disease, stage 4 (severe); Z79.4 Long term (current) use of insulin; E11.22 Type 2 diabetes mellitus with diabetic chronic kidney disease; I12.9 Hypertensive chronic kidney disease with stage 1 through stage 4 chronic kidney disease, or unspecified chronic kidney disease; Z90.710 Acquired absence of both cervix and uterus; R31.9 Hematuria, unspecified; S09.90XA Unspecified injury of head, initial encounter; R50.9 Fever, unspecified; W18.39XA Other fall on same level, initial encounter; Y93.01 Activity, walking, marching and hiking; I25.2 Old myocardial infarction; Z95.0 Presence of cardiac pacemaker; Z79.899 Other long term (current) drug therapy; Z96.643 Presence of artificial hip joint, bilateral
CPT/HCPCS: 70450; 71045; 72125; 80053; 81001; 82550; 85025; 85610; 85730; 87077; 87086; 87088; 87186; 87631; 93005; 96360; 96361; 99285; P9612; A4216

== ENCOUNTER 2024-08-17 18:15 | Inpatient (IN) | payer MEDICARE, SELFPAY ==
[2024-08-17 18:16] VITALS: BP 118/74; PULSE 63; RESP 16; TEMP 36.9; O2SAT 94
--- NOTE | 2024-08-17 20:03 | EX.ED.DYSGE1 ---
HPI History of Present Illness Chief Complaint: General Illness Detail of Chief Complaint: Cellulitis of lower extremities and UTI Informant: patient Narrative Narrative: Patient presents the emergency department complaint of cellulitic changes to her lower extremities for several days worsening. Patient also diagnosed with a UTI recently as she was seen in the emergency department 4 days ago after a fall and had a urine culture sent that was positive and patient has not started the antibiotics yet as she recently received a call regarding the positive culture. She has been more weak. Patient has had a fever intermittently over the last several days. She denies chills or sweats. 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 Obesity (BMI 30.0-34.9) Venous stasis ulcer Venous stasis dermatitis Dependent edema Left leg swelling Right leg swelling Leg edema, left Leg edema, right Urinary tract infection Insulin dependent diabetes mellitus UTI (urinary tract infection) Edema Presence of cardiac pacemaker Sick sinus syndrome Bilateral primary osteoarthritis of knee Rheumatoid arthritis History of renal insufficiency History of diabetes mellitus History of non-ST elevation myocardial infarction (NSTEMI) (03/21/21) Diabetes Cellulitis Anxiety Depression Hip fracture requiring operative repair Age related osteoporosis Osteoarthritis Cardiac murmur Type 2 diabetes mellitus without complications Carpal tunnel syndrome Arthritis Anemia Traumatic ulcer of left lower leg Fracture of femur, subcapital, right, closed Edema of both lower extremities Dermatitis Femoral neck fracture Rheumatoid arthritis Ulcer of right lower extremity with fat layer exposed Venous stasis dermatitis of both lower extremities Open wound of left lower extremity Home Medications ?Medication ?Instructions ?Recorded ?Last Taken ?Type ferrous sulfate 325 mg (65 mg 325 mg PO DAILY supplement 08/14/17 03/20/21 History iron) tablet furosemide 40 mg tablet 40 mg PO DAILY diuretic 11/09/20 03/21/21 History pramipexole 1 mg tablet 2 mg PO QHS rls 05/11/21 Unknown History flash glucose scanning reader #2 ea 12/17/21 Unknown Rx (FreeStyle Antione 2 [place]) oxycodone 10 mg tablet 10 mg PO 4X/DAY chronic pain 03/20/22 Unknown History insulin lispro protamine-lispro See Rx Instructions subcut DAILY 09/24/23 Unknown History 100 unit/mL (50-50) subcutaneous t2dm pen (Humalog Mix 50-50 KwikPen) blood sugar diagnostic (OneTouch #100 ea 10/24/23 Unknown Rx Verio test strips) flash glucose sensor (FreeStyle #6 ea 10/24/23 Unknown Rx Antione 2 Sensor kit) pen needle, diabetic 32 gauge x #100 ea 10/24/23 Unknown Rx 5/32 (BD Ultra-Fine Tracee Pen Needle) ergocalciferol (vitamin D2) 1,250 1,250 mcg PO QWEEK 11/18/23 Unknown History mcg (50,000 unit) capsule pregabalin 25 mg capsule 25 mg PO BID 08/13/24 Unknown History Allergy/AdvReac Type Severity Reaction Status Date / [facility] AdvReac Severe Other Verified 08/17/24 18:18 Family History Mother Diabetes Father Diabetes Surgical History History of hysterectomy History of carpal tunnel release History of total right hip replacement History of total left hip replacement History of back surgery History of gastric bypass Social History household members: other details: Lives with her son. Smoking Status: Never smoker alcohol intake: never substance use type: does not use ROS ROS ED Review of Systems ROS Unobtainable: other Constitutional Constitutional ED: Reports lethargy; Denies chills, fever(s), sweats or weight loss Eyes Eyes: Denies blurry vision, change in vision or diplopia ENT ENT ED: Denies rhinorrhea or sore throat Cardiovascular Cardiovascular: Denies chest pain, orthopnea or racing heartbeat Respiratory/Chest Respiratory/Chest: Denies cough, dyspnea, dyspnea on exertion, orthopnea or sputum Gastrointestinal Gastrointestinal: Denies abdominal pain, diarrhea, nausea or vomiting Genitourinary Genitourinary ED: Reports other Details: UTI diagnosed via culture ; Denies dysuria, hematuria or urinary frequency Musculoskeletal Musculoskeletal: Denies arthralgias, back pain, myalgias or neck pain Integumentary Reports rash and other Details: Erythema/cellulitis both lower extremities ; Denies abscess or Abrasions Neurologic Neurologic: Denies headache(s) or weakness Psychiatric Psychiatric: Denies anxiety, depression or suicidal thoughts Endocrine Endocrinology: Denies polydipsia, polyphagia or polyuria Hematologic/Lymphatic Hematologic/Lymphatic: Denies easy bleeding, easy bruising or lymphadenopathy Allergic/Immunologic Allergic/Immunologic ED: Denies mouth swelling, tongue swelling or urticaria EXAM Physical Exam Const Vital Signs: 08/17/24 18:16 08/17/24 19:43 08/17/24 21:57 Temperature 98.4 F 98.8 F Temperature Source Oral Pulse Rate 63 60 Respiratory Rate 16 15 Respiratory Effort Normal Non-Labored Respiratory Pattern Normal Blood Pressure 118/74 125/60 H Blood Pressure Mean 88 81 Pulse Ox 94 95 Oxygen Delivery Method Room Air 08/17/24 22:00 Temperature 98.8 F Temperature Source Oral Pulse Rate 60 Respiratory Rate 12 Respiratory Effort Respiratory Pattern Blood Pressure 120/58 L Blood Pressure Mean 78 Pulse Ox 95 Oxygen Delivery Method Room Air Positive well nourished and well developed General Appearance ED: well developed and NAD HEENT Reports TM's clear and moist mucous membranes normocephalic and atraumatic; Negative for trauma or tenderness Tympanic Membrane ED: Yes TM's clear Eyes PERRL and EOMs intact bilaterally General Eye ED: Negative for pale conjunctiva or scleral icterus Neck no lymphadenopathy, supple and no JVD General: Negative for tenderness Chest Wall inspection of chest normal and palpation of chest normal Chest: Negative for tenderness Resp normal respiratory effort and clear to auscultation bilaterally Effort and Inspection: Negative for respiratory distress or pain with movement Auscultation: Negative for rhonchi, wheezes or diminished lung sounds Cardio regular rate, regular rhythm, S1 normal heart sound, S2 normal heart sound and no murmurs Peripheral Pulses: pulses 2+ throughout GI normal to inspection, nondistended, normoactive bowel sounds, soft to palpation, non-tender, non-distended and no masses Back/Spine no CVA tenderness and no thoracic nor lumbar tenderness Extremity Extremity Narrative: Diffuse cellulitis both lower extremities from below the knee to the feet. There is weeping skin. General Extremety ED: Negative for edema General Extremity: Negative for edema Neuro oriented x3, CN's II-XII intact bilaterally, no sensory deficits noted and gait normal Sensorium / Orientation: awake, alert, oriented to person, oriented to place and oriented to time Motor Exam: strength 5/5 throughout and strength abnormal Psych mental status grossly normal Skin no rashes or lesions noted and no wounds MDM MDM MDM Narrative Medical decision making narrative: Patient with recent diagnosis of UTI and culture does show Enterococcus faecalis that is sensitive to ampicillin. IV line will be established. Blood cultures ordered. Patient will be started on Unasyn and vancomycin IV. Patient had a CBC with differential that showed a white count of 13.1 with hemoglobin 8.7 platelet count of of 321. Chemistries unremarkable. Lactate normal at 1.1. She had a BUN of 51 and creatinine 2.28. Urinalysis positive for 500 leukocyte esterase and 10-25 WBCs and +2 bacteria. Case discussed with hospitalist will evaluate patient for admission for bilateral lower extremity cellulitis and UTI as well as generalized weakness Lab Data Attestation: I reviewed the patient's lab results. Labs: Laboratory Results - last 24 hr 08/17/24 08/17/24 08/17/24 20:16 20:18 20:33 WBC 13.1 H RBC 3.15 L Hgb 8.7 L Hct 27.4 L MCV 87.0 MCH 27.6 MCHC 31.8 L RDW Std Deviation 48.3 H RDW Coeff of Fady 15.1 H Plt Count 321 MPV 10.5 Immature Gran % (Auto) 0.700 Neut % (Auto) 83.6 H Lymph % (Auto) 8.3 L [place] % (Auto) 5.4 Eos % (Auto) 1.7 Baso % (Auto) 0.3 Absolute Neuts (auto) 10.9 H Absolute Lymphs (auto) 1.08 Nucleated RBC % 0 Sodium 136 Potassium 4.2 Chloride 108 H Carbon Dioxide 20.0 L Anion Gap 8 BUN 51 H Creatinine 2.28 H Estim Creat Clear Calc 18.63 Est GFR (MDRD) Af Amer 27 L Est GFR (MDRD) Non-Af 22 L BUN/Creatinine Ratio 22.4 H Glucose 250 H Lactic Acid 1.1 Calcium 7.7 L Urine Color Yellow Urine Clarity Sl. Cloudy Urine pH 5.0 Ur Specific [place] 1.025 Urine Protein 30 H Urine Glucose (UA) Normal Urine Ketones Negative Urine Occult Blood 10 H Urine Nitrite Negative Urine Bilirubin Negative Urine Urobilinogen 1 H Ur Leukocyte Esterase 500 H Urine RBC 0-5 SEEN Urine WBC 10-25 SEEN Ur Squamous Epith Cells 0-5 SEEN Urine Bacteria 2+ WBC Casts 0-5 SEEN Urine Mucus 1+ Discharge Plan Triage Chief Complaint: General Illness ED Provider: Purvi Jackson Dx/Rx/DC Orders Clinical Impression: Cellulitis, Acute UTI, Weakness Prescriptions: No Action furosemide 40 mg tablet 40 mg PO DAILY Patient Comments: TAKE 1 TABLET BY MOUTH ONCE DAILY (DME) FreeStyle Antione 2 [place] Misc See Rx Instructions .ROUTE .MEDSUPPLY Qty: 2 6RF Rx Instructions: As directed oxycodone 10 mg tablet 10 mg PO 4X/DAY Patient Comments: TAKE 1 TABLET BY MOUTH FOUR TIMES DAILY NEEDED ferrous sulfate 325 MG tablet 325 mg PO DAILY pramipexole 1 mg tablet 2 mg PO QHS pregabalin 25 mg capsule 25 mg PO BID Humalog Mix 50-50 KwikPen 100 unit/mL (50-50) insulin pen See Rx Instructions subcut DAILY Rx Instructions: subcutaneously daily; SLIDING SCALE ergocalciferol (vitamin D2) 1,250 mcg (50,000 unit) capsule 1,250 mcg PO QWEEK (DME) OneTouch Verio test strips Strip See Rx Instructions .ROUTE .MEDSUPPLY Qty: 100 3RF Rx Instructions: 3x/day (DME) FreeStyle Antione 2 Sensor Kit See Rx Instructions .Route Qty: 6 1RF Rx Instructions: As directed (DME) pen needle, diabetic [BD Ultra-Fine Tracee Pen Needle] 32 gauge x 5/32 needle See Rx Instructions .ROUTE .MEDSUPPLY Qty: 100 5RF Rx Instructions: As directed5 times daily Primary Care Provider: Leonard Stewart Referrals: Leonard Stewart DO [Primary Care Provider] - Print Language: Maltese Disposition Disposition: Acute Care Hospital [facility]
[2024-08-17 20:04] VITALS: BMI 34.2
[2024-08-17] MEDS: Ampicillin/Sulbactam 3 GM in 0.9% Normal Saline (100mL MB+) 100 ML IV (20:32)
[2024-08-17 20:40] LABS: Absolute Lymphocyte Count 1.08 X10^3/uL (0.83-4.51); Absolute Neutrophil Count 10.9 X10^3/uL (2.0-7.7); Basophil# 0.04 X10^3/uL; Basophil% 0.3 % (0-1); Eosinophil# 0.22 X10^3/uL; Eosinophils% 1.7 % (0-5); Hematocrit 27.4 % (37-47); Hemoglobin 8.7 g/dL (12.0-15.0); Lymphocyte # 1.08 X10^3/ul (0.83-4.51); Lymphocyte % 8.3 % (19-41); Mean Corp Hgb Conc 31.8 g/dL (32-36); Mean Corpuscular Hgb 27.6 pg (27.0-32.0); Mean Platelet Vol. 10.5 fl (6.2-12.0); Monocyte% 5.4 % (0-10); NRBC Flagged by Analyzer 0 % (0-5); Neutrophil # 10.94 X10^3/uL (2.7-7.7); Neutrophil % 83.6 % (47-70); Platelet Count 321 K/mm3 (150-450); RBC Distribution Width CV 15.1 % (11.6-14.6); RBC Distribution Width SD 48.3 fl (35.1-43.9); Red Blood Count 3.15 M/mm3 (4.2-5.4); White Blood Count 13.1 K/mm3 (4.4-11.0)
[2024-08-17 20:55] LABS: Color, Urine Yellow (Yellow); Glucose, Dipstick Normal (Normal); Ketone-Dipstick Negative (Negative); Leukocyte Esterase-Dipstick 500 /ul (Negative); Nitrite-Dipstick Negative (Negative); Occult Blood-Urine 10 /ul (Negative); Protein-Dipstick 30 mg/dl (Negative); Specific Gravity, Urine 1.025 (1.002-1.030); Urine Bilirubin Dipstick Negative (Negative); Urine Clarity Sl. Cloudy (Clear); Urine Urobilinogen 1 mg/dl (Normal)
[2024-08-17 20:56] LABS: Lactic Acid 1.1 mmol/L (0.4-1.9)
[2024-08-17 21:11] LABS: Anion Gap 8 (5-15); BUN 51 mg/dL (7-18); BUN/Creat Ratio 22.4 RATIO (10-20); Calcium,Total 7.7 mg/dL (8.5-10.1); Chloride 108 mmol/L (98-107); Creatinine, Serum 2.28 mg/dL (0.55-1.02); EST Glomerular Filtration Rate 22 mL/min (>60); Est Glom Filt Rate - Afr Amer 27 mL/min (>60); Estimated Creatinine Clearance 18.63 ml/min; Glucose 250 mg/dL (74-106); Potassium 4.2 mmol/L (3.5-5.1); Sodium Level 136 mmol/L (136-145)
[2024-08-17 21:29] LABS: Bacteria 2+ /hpf (None Seen); Mucous, Urine 1+ /hpf (<or=2+); Red Blood Cells-Urine 0-5 SEEN /hpf (0-5); Squamous Epithelial Cells - UA 0-5 SEEN /hpf (5-10); White Blood Cells 10-25 SEEN /hpf (0-5); White Cell Cast 0-5 SEEN /lpf (None Seen)
[2024-08-17] MEDS: Vancomycin HCl 1,250 MG in 0.9% Normal Saline (250mL Bag) 250 ML 167 MG IV (21:32)
--- NOTE | 2024-08-17 21:46 | HP.PCM.HOS_ITS ---
[facility] - General General Date of Admission: 08/17/24 Date of Service: 08/17/24 Chief Complaint: Worsening Redness and Swelling of Bilateral LE's. HPI Narrative CASANDRA GARCIA, is a 79 F with a past medical history of essential hypertension; on furosemide, obesity; with BMI of 34.2 this admission, DM-2; of unknown control on insulin lispro, diabetic polyneuropathy; on pregabalin twice daily, CAD; s/p non-ST elevation AL (2020), history of SSS; s/p PPM, CKD; stage IV, chronic anemia; on chronic ferrous sulfate, RA, RLS; on pramipexole, history of gastric bypass (2005), history of vitamin D deficiency; currently on supplementation, history of hysterectomy, history of CTS; s/p release, chronic venous stasis dermatitis with a history of ulceration of both lower extremities causing cellulitis, history of COVID-19, osteoporosis, history of Right femur fracture; s/p ORIF, OA; with history of bilateral THR (2019) and previous back surgery (2012) with subsequent chronic pain syndrome on oxycodone 10 mg p.o. 4 times daily as needed and history of recent fall approximately 4 days ago with patient subsequently diagnosed with UTI; with cultures positive for Enterococcus sensitive to ampicillin - but with patient not taking the prescribed antibiotics after being called about her positive urine culture who presents to [facility] ER complaining of worsening redness and swelling of both lower extremities. Ms. Garcia reports her symptoms began ~3 to 4 days prior to admission with a gradual onset of progressively worsening redness and swelling of her legs that is much worse than normal. She also admits to intermittent subjective fevers and generalized weakness but she denies chills, sweats, nausea, vomiting, diarrhea, constipation, shortness of breath or chest pain. In the ER she was diagnosed with Bilateral Lower Extremity Cellulitis in the setting of known chronic venous stasis dermatitis complicated by recently diagnosed, but as yet untreated Acute Cystitis; without hematuria with corresponding Leukocytosis of 13.1 K present on admission compounded by suspected NATI in the setting of stage IV CKD with elevated serum creatinine of 2.28 mg/dL, elevated BUN of 51 mg/dL and eGFR of 22 mL/min present on admission (up from her baseline serum creatinine of 1.87 mg/dL, BUN of 45 mg/dL and eGFR of 28 mL/min 4 days ago) plus she was noted to have an elevated BNP of 903 pg/mL present on admission consistent with suspected AE CHF of uncertain type all culminating to cause worsening Generalized Weakness with Ambulatory Dysfunction after recent Fall 4 days ago and she was then admitted to the general medical floor for ongoing care for stay that is expected to extend beyond 2 midnights. [facility] Medical History Bilateral edema of lower extremity Chronic venous insufficiency 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 Obesity (BMI 30.0-34.9) Venous stasis ulcer Venous stasis dermatitis Dependent edema Left leg swelling Right leg swelling Leg edema, left Leg edema, right Urinary tract infection Insulin dependent diabetes mellitus UTI (urinary tract infection) Edema Presence of cardiac pacemaker Sick sinus syndrome Bilateral primary osteoarthritis of knee Rheumatoid arthritis History of renal insufficiency History of diabetes mellitus History of non-ST elevation myocardial infarction (NSTEMI) (03/21/21) Diabetes Cellulitis Anxiety Depression Hip fracture requiring operative repair Age related osteoporosis Osteoarthritis Cardiac murmur Type 2 diabetes mellitus without complications Carpal tunnel syndrome Arthritis Anemia Traumatic ulcer of left lower leg Fracture of femur, subcapital, right, closed Edema of both lower extremities Dermatitis Femoral neck fracture Rheumatoid arthritis Ulcer of right lower extremity with fat layer exposed Venous stasis dermatitis of both lower extremities Open wound of left lower extremity Home Medications ?Medication ?Instructions ?Recorded ?Last Taken ?Type ferrous sulfate 325 mg (65 mg 325 mg PO DAILY supplement 08/14/17 03/20/21 History iron) tablet furosemide 40 mg tablet 40 mg PO DAILY diuretic 11/09/20 03/21/21 History pramipexole 1 mg tablet 2 mg PO QHS rls 05/11/21 Unknown History flash glucose scanning reader #2 ea 12/17/21 Unknown Rx (FreeStyle Antione 2 [place]) oxycodone 10 mg tablet 10 mg PO 4X/DAY chronic pain 03/20/22 Unknown History insulin lispro protamine-lispro See Rx Instructions subcut DAILY 09/24/23 Unknown History 100 unit/mL (50-50) subcutaneous t2dm pen (Humalog Mix 50-50 KwikPen) blood sugar diagnostic (OneTouch #100 ea 10/24/23 Unknown Rx Verio test strips) flash glucose sensor (MercoraStyle #6 ea 10/24/23 Unknown Rx Antione 2 Sensor kit) pen needle, diabetic 32 gauge x #100 ea 10/24/23 Unknown Rx 32 (BD Ultra-Fine Tracee Pen Needle) ergocalciferol (vitamin D2) 1,250 1,250 mcg PO QWEEK 11/18/23 Unknown History mcg (50,000 unit) capsule pregabalin 25 mg capsule 25 mg PO BID 08/13/24 Unknown History Allergy/AdvReac Type Severity Reaction Status Date / [facility] AdvReac Severe Other Verified 08/17/24 18:18 Family History Mother Diabetes Father Diabetes Surgical History History of hysterectomy History of carpal tunnel release History of total right hip replacement History of total left hip replacement History of back surgery History of gastric bypass Social History household members: family number of children: 2 current occupational status: retired Smoking Status: Never smoker alcohol intake: never substance use type: does not use ROS ROS Narrative Review of Systems: Constitutional: Patient admits to subjective fever, lethargy and generalized weakness but she denies chills. Eyes: Patient denies changes in vision or discharge from eyes. ENT: Patient denies runny nose, sore throat or ear pain. Resp: Patient denies shortness of breath or cough. GI: Patient denies abdominal pain, nausea, vomiting, diarrhea or constipation. : Patient admits to recently diagnosed UTI but she denies dysuria. MSK: Patient admits to generalized weakness with increased pain, swelling and redness of her LE's as per HPI. Skin: Patient admits to severe acute erythema in the setting of chronic venous stasis as per HPI. Psych: Patient denies symptoms of uncontrolled depression or anxiety. Neuro: Patient denies headache, paresthesias or focal neurologic weakness. Allergy: Patient denies lip swelling or tongue swelling. Hematology: Patient denies easy bleeding or easy bruisability. Endocrinology: Patient denies polyuria, polydipsia or polyphagia. 14 point ROS otherwise negative except for positives noted above in HPI. Vital Signs Vital Signs Vital Signs: 08/17/24 18:16 08/17/24 19:43 Temperature 98.4 F Temperature Source Oral Pulse Rate 63 Respiratory Rate 16 Respiratory Effort Normal Non-Labored Respiratory Pattern Normal Blood Pressure 118/74 Blood Pressure Mean 88 Pulse Ox 94 Oxygen Delivery Method Room Air Weight Weight: 169 lb 5.04 oz Body Mass Index (BMI) 34.2 Physical Exam Const alert, oriented x3 and no apparent distress Constitutional Narrative: Patient is obese and appears ill. General Appearance: cooperative HEENT normocephalic, head/scalp atraumatic, hearing grossly normal bilaterally and moist oral mucous membranes Eyes PERRL and EOMs intact bilaterally Neck no lymphadenopathy and supple Resp normal respiratory effort, no retractions, no use of accessory muscles and clear to auscultation bilaterally Cardio regular rate and regular rhythm GI normal to inspection, nondistended, normoactive bowel sounds, soft to palpation, non-tender and non-distended Extremity Extremity Narrative: Diffuse erythema and edema of both lower extremities from the ankle to the knee complicated by weeping skin with serous yellow fluid. Skin Skin Narrative: Diffuse erythema and edema of both lower extremities from the ankle to the knee complicated by weeping skin with serous yellow fluid. Neuro oriented x3, CN's II-XII intact bilaterally, moves all extremities and no focal motor deficits Sensorium / Orientation: awake, alert, oriented to person, oriented to place and oriented to time Speech: speech normal Psych affect normal Results Medical Records Data Attestation: I reviewed the patient's medical records Lab / Micro Data Attestation: I reviewed the patient's lab results. 08/17/24 20:18 08/17/24 20:16 Labs: Laboratory Results - last 24 hr 08/17/24 20:16: Sodium 136, Potassium 4.2, Chloride 108 H, Carbon Dioxide 20.0 L , Anion Gap 8, BUN 51 H, Creatinine 2.28 H, Estim Creat Clear Calc 18.63, Est GFR (MDRD) Af Amer 27 L, Est GFR (MDRD) Non-Af 22 L, BUN/Creatinine Ratio 22.4 H , Glucose 250 H, Calcium 7.7 L 08/17/24 20:18: WBC 13.1 H, RBC 3.15 L, Hgb 8.7 L, Hct 27.4 L, MCV 87.0, MCH 27.6, MCHC 31.8 L, RDW Std Deviation 48.3 H, RDW Coeff of Fady 15.1 H, Plt Count 321, MPV 10.5, Immature Gran % (Auto) 0.700, Neut % (Auto) 83.6 H, Lymph % (Auto) 8.3 L, [place] % (Auto) 5.4, Eos % (Auto) 1.7, Baso % (Auto) 0.3, Absolute Neuts (auto) 10.9 H, Absolute Lymphs (auto) 1.08, Nucleated RBC % 0, Lactic Acid 1.1 08/17/24 20:33: Urine Color Yellow, Urine Clarity Sl. Cloudy, Urine pH 5.0, Ur Specific [place] 1.025, Urine Protein 30 H, Urine Glucose (UA) Normal, Urine Ketones Negative, Urine Occult Blood 10 H, Urine Nitrite Negative, Urine Bilirubin Negative, Urine Urobilinogen 1 H, Ur Leukocyte Esterase 500 H, Urine RBC 0-5 SEEN, Urine WBC 10-25 SEEN, Ur Squamous Epith Cells 0-5 SEEN, Urine Bacteria 2+, WBC Casts 0-5 SEEN, Urine Mucus 1+ Assessment & Plan Assessment/Plan (1) Cellulitis: QUALIFIERS: Laterality: unspecified laterality Site of cellulitis: extremity Site of cellulitis of extremity: lower extremity Q ualified Code(s): L03.119 - Cellulitis of unspecified part of limb (2) D-dimer, elevated: (3) Venous stasis dermatitis of both lower extremities: (4) Acute UTI: (5) CHF exacerbation: QUALIFIERS: Heart failure type: unspecified Qualified Code(s): I 50.9 - Heart failure, unspecified (6) NATI (acute kidney injury): (7) CKD (chronic kidney disease) stage 4, GFR 15-29 ml/min: (8) Generalized weakness: (9) Ambulatory dysfunction: (10) History of recent fall: (11) Obesity (BMI 30.0-34.9): (12) T2DM (type 2 diabetes mellitus): QUALIFIERS: Diabetes mellitus complication status: with hyperglycemia Diabetes mellitus senior living insulin use: with vermin exterminator use Q ualified Code(s): E11.65 - Type 2 diabetes mellitus with hyperglycemia; Z79.4 - senior living (current) use of insulin (13) Polyneuropathy due to type 2 diabetes mellitus: PLAN: Plan 1. Bilateral Lower Extremity Cellulitis in the setting of known chronic venous stasis dermatitis with previous ulcerations and numerous bouts of cellulitis in the past with an elevated d-dimer of 2.63 present on admission - Admit to general medical floor. Continue Vancomycin IV begun in the ER and check MRSA PCR. Check bilateral lower extremity Doppler to evaluate for possible DVT. Give Tylenol prn for [id number] (level 1-5/10) pain or fever. Continue oxycodone prn for severe (level 6-10/10) pain. 2. Acute Cystitis; without hematuria with corresponding Leukocytosis of 13.1 K present on admission with recent urine cultures positive for Enterococcus sensitive to Unasyn complicating #1 - Continue IV Unasyn begun in the ER. 3. NATI in the setting of stage IV CKD with elevated serum creatinine of 2.28 mg/dL, elevated BUN of 51 mg/dL and eGFR of 22 mL/min present on admission (up from her baseline serum creatinine of 1.87 mg/dL, BUN of 45 mg/dL and eGFR of 28 mL/min 4 days ago) compounding #1 & #2 - Gently volume resuscitate and then recheck renal indices daily. 4. AE of CHF of uncertain type evidenced by elevated BNP of 903 pg/dL present on admission adding pathology outlined from #1 - #3 - Patient will be given IV albumin followed by IV Lasix. Check CXR and BNP daily to follow trend. 5. Worsening Generalized Weakness with Ambulatory Dysfunction after recent Fall 4 days ago adding to the medical complexity of #1 - #4 - PT/OT and Case Management to consult and treat on rounds in the AM with help appreciated in advance. 6. Obesity; with BMI of 34.2 this admission adding to the burden of disease outlined from #1 - #5 - Weight loss will be recommended. Check TSH. This complicates her case and may hamper recovery. 7. DM-2; of unknown control on insulin lispro with diabetic polyneuropathy; on pregabalin twice daily - ADA diet. FSBS q. AC/HS plus lowest-intensity SSI. Check HgbA1c to objectively assess quality of diabetic control. 8. Essential hypertension; on furosemide - Give Hydralazine IV prn for systolic blood pressure > 160 mmHg. 9. CAD; s/p non-ST elevation AL (2020) - Noted. 10. History of SSS; s/p PPM - Noted. 11. Chronic Anemia; on chronic ferrous sulfate - Stable with hemoglobin of 8.7 g/dL and MCV of 87 fL present on admission. 12. RA - Stable with no evidence of acute flare at this time. 13. RLS; on pramipexole - Resume pramipexole as before. 14. History of gastric bypass (2005) - Check B12 and Folate levels to screen for possible malabsorption of vital nutrients. 15. History of vitamin D deficiency; currently on supplementation - Continue current supplementation. 16. History of hysterectomy - Noted. 18. History of CTS; s/p release - Noted. 19. History of COVID-19 - Noted. 20. Osteoporosis - Stable. 21. History of Right femur fracture; s/p ORIF - Stable. 22. OA; with history of bilateral THR (2019) and previous back surgery (2012) with subsequent chronic pain syndrome on oxycodone 10 mg p.o. 4 times daily as needed - Continue current pain regimen according to scale outlined above. 23. DVT prophylaxis - Heparin 5,000 U sq TID. Total time: Approximately (but not less than) 75 minutes. Charges/Coding Visit Charges Inpatient E&M: 64810 Init Hosp L3
[2024-08-17 21:57] VITALS: BP 125/60; PULSE 60; RESP 15; TEMP 37.1; O2SAT 95
[2024-08-17 22:00] VITALS: BP 120/58; PULSE 60; RESP 12; TEMP 37.1; O2SAT 95
[2024-08-17 23:16] VITALS: BMI 33.0
[2024-08-17 23:18] VITALS: BP 129/62; PULSE 64; RESP 16; TEMP 35.4; O2SAT 98
[2024-08-17 23:18] LABS: Hemoglobin A1c 9.4 % (3.8-5.6)
[2024-08-17 23:19] LABS: Thyroid Stim Hormone (TSH) 0.627 uIU/mL (0.358-3.740)
[2024-08-17 23:30] VITALS: BP 125/75; PULSE 65; RESP 16; TEMP 36.3; O2SAT 98
[2024-08-17 23:39] LABS: D-Dimer Quantitative (DVT/PE) 2.63 FEU/ug/m (0.27-0.49)
[2024-08-17] MEDS: 0.9% Normal Saline (1000mL) 1,000 ML 70 ML IV (23:50)
[2024-08-17] MEDS: Acetaminophen 325 MG Tablet 650 MG PO (23:51)
[2024-08-17] MEDS: oxyCODONE 5 MG Tablet 10 MG PO (23:51)
[2024-08-17] MEDS: CLARIFY ORDER 1 EACH NOTE (23:52)
[2024-08-18 00:36] LABS: Bedside Glucose 218 mg/dL (74-106)
--- NOTE | 2024-08-18 01:01 | PCM.RX.CS ---
Consult Labs Labs: Sodium 136 mmol/L (136-145) 08/17/24 20:16 Potassium 4.2 mmol/L (3.5-5.1) 08/17/24 20:16 Chloride 108 mmol/L (98-107) H 08/17/24 20:16 Carbon Dioxide 20.0 mmol/L (21.0-32.0) L 08/17/24 20:16 Anion Gap 8 (5-15) 08/17/24 20:16 BUN 51 mg/dL (7-18) H 08/17/24 20:16 Creatinine 2.28 mg/dL (0.55-1.02) H 08/17/24 20:16 Est GFR (MDRD) Af Amer 27 mL/min (>60) L 08/17/24 20:16 Est GFR (MDRD) Non-Af 22 mL/min (>60) L 08/17/24 20:16 BUN/Creatinine Ratio 22.4 RATIO (10-20) H 08/17/24 20:16 Glucose 250 mg/dL (74-106) H 08/17/24 20:16 Dosing Weight Weight used for dosin.3 kg Estimated Creatinine Clearance Estimated Creatinine Clearance: 18.63 Goal Trough Goal Trough: 15-20 mcg/mL Pharmacy Plan for Drug Dosing Pharmacy Plan for Drug Dosing: Pharmacy Service will continue to monitor and adjust dosing as required. ER DOSE OF 1250MG GIVEN 08/17 @ 2. CrCl 18.63 NOT ON DIALYSIS. DRAW RANDOM LEVEL 08/19 @ 0600 AND DOSE ACCORDING TO VANCO PROTOCOL Follow-Up Labs Follow-Up Labs: Trough: Vancomycin Date/Time Labs Ordered Labs to be done on [date and time ordered]: 08/19 @ 0600
[2024-08-18 05:17] VITALS: BMI 33.0
[2024-08-18 05:43] VITALS: BP 149/62; PULSE 68; RESP 16; TEMP 36.2; O2SAT 100
--- NOTE | 2024-08-18 05:45 | VDLE_ITS ---
Reason For Study: Elevated D Dimer RIGHT LEFT GSV is normal. GSV is normal. CFV is compressible, spontaneous, phasic, CFV is compressible, spontaneous, phasic, competent and demonstrates normal competent, and demonstrates normal augmentation. augmentation. FV is compressible, spontaneous, phasic, FV is compressible, spontaneous, phasic, competent and demonstrates normal competent and demonstrates normal augmentation. augmentation. POP V is compressible, spontaneous, phasic, POP V is compressible, spontaneous, phasic, competent and demonstrates normal competent and demonstrates normal augmentation. augmentation. T/P Trunk is compressible. T/P Trunk is compressible. PTV is compressible. PTV is compressible. RT PerV is compressible. LT PerV is compressible. Procedure Unable to visualize calf vessels at distal This is a venous duplex using B-mode, color due to open wounds. prox and mid appear flow and spectral Doppler. compressible. Exam performed in department. The exam was diagnostic. Limited views were obtained. A preliminary report was called and/or faxed to PCU psychological anthropologist. VL/Venous Duplex US - Good Extrem Interpretation Summary Deep veins of the bilateral lower extremities are patent and compressible segme ntally. There is no evidence of bilateral lower extremity deep vein thrombosis. The bilateral great saphenous veins appear patent and compressible segmentally. Ordering Physician: Jorge Luis Espinoza Referring Physician: Leonard Stewart Performed By: Poli Wooten, RVT
[2024-08-18] MEDS: Heparin Injection (Vial) 5,000 UNIT/ML VIAL 5000 UNIT SC ×3 (05:58→21:09)
[2024-08-18] MEDS: Insulin Lispro 100 UNIT/ML INSULN.PEN SC ×4 (05:58→21:11)
[2024-08-18 06:09] LABS: Absolute Lymphocyte Count 0.52 X10^3/uL (0.83-4.51); Absolute Neutrophil Count 9.4 X10^3/uL (2.0-7.7); Basophil# 0.02 X10^3/uL; Basophil% 0.2 % (0-1); Eosinophil# 0.25 X10^3/uL; Eosinophils% 2.3 % (0-5); Hematocrit 28.5 % (37-47); Hemoglobin 8.8 g/dL (12.0-15.0); Lymphocyte # 0.52 X10^3/ul (0.83-4.51); Lymphocyte % 4.9 % (19-41); Mean Corp Hgb Conc 30.9 g/dL (32-36); Mean Corpuscular Hgb 26.8 pg (27.0-32.0); Mean Corpuscular Volume 86.9 fL (81-99); Mean Platelet Vol. 10.5 fl (6.2-12.0); Monocyte# 0.48 X10^3/uL; Monocyte% 4.5 % (0-10); NRBC Flagged by Analyzer 0 % (0-5); Neutrophil % 87.6 % (47-70); POSITIVE DIFFERENTIAL YES; Platelet Count 316 K/mm3 (150-450); RBC Distribution Width SD 48.4 fl (35.1-43.9); Red Blood Count 3.28 M/mm3 (4.2-5.4); White Blood Count 10.7 K/mm3 (4.4-11.0)
[2024-08-18 06:37] LABS: ALB/GLOB Ratio 0.5 RATIO (0.9-2.4); AST(SGOT) 13 U/L (15-37); Alanine Aminotransfer ALT/SGPT 18 U/L (13-56); Albumin, Serum 1.9 g/dL (3.2-5.0); Alkaline Phosphatase 87 U/L (45-117); Anion Gap 6 (5-15); BUN 48 mg/dL (7-18); BUN/Creat Ratio 24.9 RATIO (10-20); Chloride 110 mmol/L (98-107); Creatinine, Serum 1.93 mg/dL (0.55-1.02); EST Glomerular Filtration Rate 27 mL/min (>60); Est Glom Filt Rate - Afr Amer 32 mL/min (>60); Estimated Creatinine Clearance 21.62 ml/min; Globulin 3.5 g/dL (2.2-4.2); Glucose 195 mg/dL (74-106); Magnesium 1.9 mg/dL (1.6-2.6); Phosphorus 3.1 mg/dL (2.5-4.9); Protein, Total 5.4 g/dL (6.4-8.2); Sodium Level 136 mmol/L (136-145)
[2024-08-18] MEDS: Albumin Human 25% (100 mL) 25 GM/100 ML BAG IV (07:04)
[2024-08-18 07:18] LABS: Bedside Glucose 201 mg/dL (74-106)
[2024-08-18 08:55] LABS: M R Staph aureus DNA By PCR Negative (Negative); Probe Check PASS; Specimen Processing Control PASS; Staph aureus DNA By PCR POSITIVE (Negative)
[2024-08-18 09:35] LABS: Vitamin B12 305 pg/mL (211-911)
[2024-08-18 10:24] VITALS: BP 123/63; PULSE 61; RESP 16; TEMP 36.5; O2SAT 97
--- NOTE | 2024-08-18 10:30 | CASEMGMT ---
JOSE CASAS Face to Face with patient for initial transition planning/care coordination assessment. JOSE CASAS introduced self and role at [facility]. Patient lying in bed, alert and oriented. Patient willing to participate in assessment and is able to answer all questions appropriately. Care providers, pharmacy, and demographics verified. Strata: 3 PCP: Pat Specialists: , metal shaping machine operator; Areli, Blacksmith Assistant; Javier, roof truss builder; Preferred Pharmacy: [facility] Insurance: [facility] Prescription Benefit: yes Living Will/HPOA: yes, daughter Juliann Followay LNOK: daughter, son Living Arrangements: Patient lives with son and grandson, son is currently in [facility]. Patient lives in a 2 story home with bed and bath on first floor, ramp to enter the home. Patient was independent at home with self-care. Transportation: family DME/HHC: Patient has shower chair, BSC, raised toilet, grab bars, rollator, wheelchair, glucometer. Patient has been to [facility] in the past. Patient is [facility] with [facility]. Patient wishes to discharge home. JOSE CASAS discussed needs at discharge and support at home. Grandson works during the day. JOSE CASAS discussed potential need for SNF at discharge. Patent states she prefers [facility] because that is where her son is at. Patient agreeable to have referral sent to [facility] and declined SNF list at this time. Patient states he has no further needs or concerns at this time. JOSE CASAS updated SW. CM to follow for discharge planning needs that may arise. Disposition Plan: TBD, anticipate SNF pending progress with therapy. Precious RODRIGUEZ, RN, CM
[2024-08-18] MEDS: Ascorbic Acid 500 MG Tablet 1000 MG PO (10:31)
[2024-08-18] MEDS: Lactobacillis Acidophilus 1 CAP PO ×4 (10:31→21:08)
[2024-08-18] MEDS: Zinc Sulfate 50 mg zinc (220 mg) ORAL capsule PO (10:31)
[2024-08-18] MEDS: Ferrous Sulfate 325 MG Tablet PO (10:31)
[2024-08-18] MEDS: Furosemide 40 MG/4 ML Vial IV (10:48)
[2024-08-18] MEDS: Acetaminophen 325 MG Tablet 650 MG PO ×2 (10:49→17:22)
[2024-08-18] MEDS: 0.9% Saline Lock 10 ML Syringe IV (10:49)
[2024-08-18] MEDS: oxyCODONE 5 MG Tablet 10 MG PO ×3 (10:49→21:20)
[2024-08-18] MEDS: Ampicillin/Sulbactam 3 GM in 0.9% Normal Saline (100mL MB+) 100 ML IV ×2 (10:56→21:01)
[2024-08-18 11:16] LABS: Bedside Glucose 176 mg/dL (74-106)
--- NOTE | 2024-08-18 12:04 | PN.HOSP_ITS ---
Subjective Subjective No issues overnight, doing well Objective Data Objective Data Vital Signs: Vital Signs Temp Pulse Resp BP Pulse Ox O2 Del Method 97.7 F L 61 16 123/63 H 97 Room Air 08/18/24 10:24 08/18/24 10:24 08/18/24 10:24 08/18/24 10:24 08/18/24 10:24 08/18/24 10:24 Oxygen Delivery Method Room Air Weight: 163 lb 12.855 oz Body Mass Index (BMI) 33.0 Intake & Output: Intake and Output for Last 24 Hours 08/17/24 08/18/24 08/19/24 03:59 03:59 03:59 Intake Total 468.67 / 468.67 447.67 / 447.67 Output Total 100 / 100 300 / 300 Balance 368.67 / 368.67 147.67 / 147.67 Lab / Micro Data 08/18/24 05:26 08/18/24 05:26 Labs: Laboratory Results - last 24 hr 08/17/24 20:16: Sodium 136, Potassium 4.2, Chloride 108 H, Carbon Dioxide 20.0 L , Anion Gap 8, BUN 51 H, Creatinine 2.28 H, Estim Creat Clear Calc 18.63, Est GFR (MDRD) Af Amer 27 L, Est GFR (MDRD) Non-Af 22 L, BUN/Creatinine Ratio 22.4 H , Glucose 250 H, Calcium 7.7 L, TSH 0.627 08/17/24 20:18: WBC 13.1 H, RBC 3.15 L, Hgb 8.7 L, Hct 27.4 L, MCV 87.0, MCH 27.6, MCHC 31.8 L, RDW Std Deviation 48.3 H, RDW Coeff of Fady 15.1 H, Plt Count 321, MPV 10.5, Immature Gran % (Auto) 0.700, Neut % (Auto) 83.6 H, Lymph % (Auto) 8.3 L, [place] % (Auto) 5.4, Eos % (Auto) 1.7, Baso % (Auto) 0.3, Absolute Neuts (auto) 10.9 H, Absolute Lymphs (auto) 1.08, Nucleated RBC % 0, D-Dimer Quant (PE/DVT) 2.63 H*, Hemoglobin A1c 9.4 H, Lactic Acid 1.1, B-Natriuretic Peptide 903.0 H 08/17/24 20:33: Urine Color Yellow, Urine Clarity Sl. Cloudy, Urine pH 5.0, Ur Specific [place] 1.025, Urine Protein 30 H, Urine Glucose (UA) Normal, Urine Ketones Negative, Urine Occult Blood 10 H, Urine Nitrite Negative, Urine Bilirubin Negative, Urine Urobilinogen 1 H, Ur Leukocyte Esterase 500 H, Urine RBC 0-5 SEEN, Urine WBC 10-25 SEEN, Ur Squamous Epith Cells 0-5 SEEN, Urine Bacteria 2+, WBC Casts 0-5 SEEN, Urine Mucus 1+ 08/17/24 23:32: POC Glucose 218 H 08/18/24 05:26: WBC 10.7, RBC 3.28 L, Hgb 8.8 L, Hct 28.5 L, MCV 86.9, MCH 26.8 L, MCHC 30.9 L, RDW Std Deviation 48.4 H, RDW Coeff of Fady 15.0 H, Plt Count 316, MPV 10.5, Immature Gran % (Auto) 0.500, Neut % (Auto) 87.6 H, Lymph % (Auto) 4.9 L, [place] % (Auto) 4.5, Eos % (Auto) 2.3, Baso % (Auto) 0.2, Absolute Neuts (auto) 9.4 H, Absolute Lymphs (auto) 0.52 L, Nucleated RBC % 0, Sodium 136, Potassium 4.0, Chloride 110 H, Carbon Dioxide 20.0 L, Anion Gap 6, BUN 48 H , Creatinine 1.93 H, Estim Creat Clear Calc 21.62, Est GFR (MDRD) Af Amer 32 L, Est GFR (MDRD) Non-Af 27 L, BUN/Creatinine Ratio 24.9 H, Glucose 195 H, Calcium 8.0 L, Phosphorus 3.1, Magnesium 1.9, Total Bilirubin 0.30, AST 13 L, ALT 18, Alkaline Phosphatase 87, Total Protein 5.4 L, Albumin 1.9 L, Globulin 3.5, A lbumin/Globulin Ratio 0.5 L, Vitamin B12 305, Folate 14.00 08/18/24 05:30: S.aureus Protein A PCR POSITIVE H, MRSA (PCR) Negative 08/18/24 05:49: POC Glucose 201 H 08/18/24 10:46: POC Glucose 176 H Physical Exam Narrative General: Alert, Oriented x3, Cooperative, No apparent distress HEENT: Atraumatic, PERRLA, EOMI, Normocephalic Oral: Moist Mucosa Neck: Supple, No JVD Lungs: Diminished, Normal air movement, No rhonchi, No wheeze, No rales Cardiovascular: Regular rate, Regular Rhythm, Normal S1, Normal S2, No murmurs Abdomen: Soft, Non Tender, Non-Distended, No Hepato-splenomegaly Extremities: No edema, Capillary Refill Less than 3 Seconds Skin: Bilateral lower extremity wounds currently dressed with chronic venous stasis changes, no obvious signs of discrete redness though there is warmth Musculoskeletal: No Tenderness to Palpation of Joints or Extremities Neurological: No focal neurological deficits, Motor Exam 5/5 strength throughout, Sensory exam intact to light touch and pain Psych/Mental Status: Normal Affect, Appropriate Assessment & Plan Assessment/Plan (1) Cellulitis: QUALIFIERS: Laterality: unspecified laterality Site of cellulitis: extremity Site of cellulitis of extremity: lower extremity Q ualified Code(s): L03.119 - Cellulitis of unspecified part of limb (2) Venous stasis dermatitis of both lower extremities: (3) Acute UTI: (4) CHF exacerbation: QUALIFIERS: Heart failure type: unspecified Qualified Code(s): I 50.9 - Heart failure, unspecified (5) NATI (acute kidney injury): PLAN: Plan 1. Bilateral chronic venous stasis changes on his lower extremities possible cellulitis versus UTI/NATI on CKD 4/debility ? She does have bilateral lower extremity wounds though unclear on exam if she has significant redness from a cellulitis versus her chronic venous stasis changes, she does have bilateral warmth ? Urine cultures previously demonstrated Enterococcus faecalis sensitive to ampicillin ?continue with antibiotics to cover both skin and urinary abrahan, blood cultures are pending ? Will hold IV fluids and monitor renal function, baseline creatinine is around 1.5, she did receive a dose of albumin ? Lower extremity Doppler negative for DVT ? PT/OT 2. 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 No signs of heart failure on history as echo in April was negative for diastolic dysfunction and EF was 55% ? BNP can be elevated due to her mild obesity and chronic kidney disease ? Continue with Lasix and monitor renal function 3. DM2 with polyneuropathy ? Continue with sliding scale insulin ? Accu-Cheks ACHS ? A1c of 9.4 4. RA ? Not on any baseline medications 5. Restless leg syndrome ? Stable ? Continue with pramipexole DVT: Heparin Charges/Coding Visit Charges Inpatient E&M: 63700 Subs Hosp L2
[2024-08-18] MEDS: Pregabalin 25 MG Capsule PO ×2 (12:17→21:20)
--- NOTE | 2024-08-18 14:05 | CASEMGMT ---
Discharge Planning A list of?SNF providers including quality and resource use data and consistent with the patient's preferred geographic region, medical needs, and insurance network was created in [facility] [facility].? This list was provided to the SW. Geraldine Steven Discharge Planning Asst.
--- NOTE | 2024-08-18 14:35 | RAD_ITS ---
STUDY: X-RAY CHEST REASON FOR EXAM: Female, 79 years old. AE CHF. TECHNIQUE: Single AP portable view of the chest. COMPARISON: Comparison is made with prior study dated August 13, 2024. FINDINGS: Stable mild increased linear markings at the lung bases suggestive of scarring. There is no demonstrated pleural abnormality. A left-sided dual-chamber pacemaker is seen. Normal mediastinum and cori. Normal visualized pulmonary arteries. There is atherosclerotic calcification of the aortic arch with tortuosity. Normal visualized thoracic spine. There is degenerative osteoarthritis of the bilateral shoulders. There is no demonstrated abnormality of the visualized soft tissue structures of the upper abdomen. RAD/Chest 1 View (Portable) IMPRESSION: Stable examination. No acute abnormality is seen. Electronically Signed: Edward Stoll MD at 15:17 EST ,
--- NOTE | 2024-08-18 15:00 | CASEMGMT ---
SW spoke with patient and let her know that [facility] is full. Patient asked SW to check with [facility]. SW did provide patient with a list of [facility] facility providers including quality and resource use data and consistent with patient?s preferred geographic region, medical needs, and insurance network were provided from the [facility] Guide. SW asked Geraldine to send a referral to [facility]. Plan: SNF pending accepting facility and insurance approval. Mary BABCOCK?
--- NOTE | 2024-08-18 15:02 | WOUNDNOTE ---
wound photo: left lower leg
--- NOTE | 2024-08-18 15:03 | WOUNDNOTE ---
wound photo: left heel
--- NOTE | 2024-08-18 15:03 | CASEMGMT ---
Referral sent via [facility] to [facility]. Requested that precert be submitted if able to accept. Geraldine Steven DC Planning Asst.
--- NOTE | 2024-08-18 15:03 | WOUNDNOTE ---
wound photo: right anterior ankle
--- NOTE | 2024-08-18 15:04 | WOUNDNOTE ---
wound photo: right heel
--- NOTE | 2024-08-18 15:05 | WOUNDNOTE ---
wound photo: right posterior lower leg
[2024-08-18 15:21] VITALS: BP 122/64; PULSE 63; RESP 20; TEMP 36.7; O2SAT 97
[2024-08-18 18:08] LABS: Bedside Glucose 252 mg/dL (74-106)
[2024-08-18 20:54] VITALS: BP 129/54; PULSE 64; RESP 16; TEMP 37.2; O2SAT 97
[2024-08-18] MEDS: Pramipexole Di-HCl 1 MG Tablet 2 MG PO (21:08)
[2024-08-18] MEDS: Menthol/Lanolin/Calamine/Znox 113 GM Tube 1 APPLIC TOPICAL (21:19)
[2024-08-18] MEDS: Nystatin Powder 15gm Bottle 1 APPLIC TOPICAL (21:19)
[2024-08-18 22:48] LABS: Bedside Glucose 222 mg/dL (74-106)
[2024-08-19 02:15] VITALS: BP 125/62; PULSE 78; RESP 16; TEMP 36.8; O2SAT 94
[2024-08-19] MEDS: Acetaminophen 325 MG Tablet 650 MG PO (05:03)
[2024-08-19] MEDS: oxyCODONE 5 MG Tablet 10 MG PO (05:03)
[2024-08-19] MEDS: Heparin Injection (Vial) 5,000 UNIT/ML VIAL 5000 UNIT SC ×3 (05:03→21:38)
[2024-08-19 05:21] LABS: Absolute Lymphocyte Count 0.69 X10^3/uL (0.83-4.51); Absolute Neutrophil Count 8.3 X10^3/uL (2.0-7.7); Basophil# 0.02 X10^3/uL; Basophil% 0.2 % (0-1); Eosinophil# 0.13 X10^3/uL; Eosinophils% 1.3 % (0-5); Hemoglobin 8.6 g/dL (12.0-15.0); Lymphocyte # 0.69 X10^3/ul (0.83-4.51); Mean Corp Hgb Conc 31.9 g/dL (32-36); Mean Corpuscular Hgb 27.3 pg (27.0-32.0); Mean Corpuscular Volume 85.7 fL (81-99); Mean Platelet Vol. 10.4 fl (6.2-12.0); Monocyte# 0.63 X10^3/uL; Monocyte% 6.4 % (0-10); NRBC Flagged by Analyzer 0 % (0-5); Neutrophil # 8.31 X10^3/uL (2.7-7.7); Neutrophil % 84.6 % (47-70); Platelet Count 345 K/mm3 (150-450); RBC Distribution Width CV 15.2 % (11.6-14.6); RBC Distribution Width SD 47.5 fl (35.1-43.9); Red Blood Count 3.15 M/mm3 (4.2-5.4); White Blood Count 9.8 K/mm3 (4.4-11.0)
[2024-08-19 05:41] LABS: Anion Gap 7 (5-15); BUN 45 mg/dL (7-18); BUN/Creat Ratio 23.9 RATIO (10-20); Calcium,Total 7.9 mg/dL (8.5-10.1); Chloride 111 mmol/L (98-107); Creatinine, Serum 1.88 mg/dL (0.55-1.02); EST Glomerular Filtration Rate 28 mL/min (>60); Est Glom Filt Rate - Afr Amer 33 mL/min (>60); Glucose 173 mg/dL (74-106); Magnesium 1.7 mg/dL (1.6-2.6); Phosphorus 2.9 mg/dL (2.5-4.9); Sodium Level 137 mmol/L (136-145)
[2024-08-19 05:43] VITALS: BMI 33.0
[2024-08-19] MEDS: Insulin Lispro 100 UNIT/ML INSULN.PEN SC ×4 (06:13→21:48)
[2024-08-19 06:34] LABS: Bedside Glucose 163 mg/dL (74-106)
[2024-08-19 09:27] VITALS: BP 107/45; PULSE 65; RESP 17; TEMP 36.6; O2SAT 95
[2024-08-19] MEDS: Nystatin Powder 15gm Bottle 1 APPLIC TOPICAL ×2 (09:30→21:39)
[2024-08-19] MEDS: Ampicillin/Sulbactam 3 GM in 0.9% Normal Saline (100mL MB+) 100 ML IV ×2 (09:31→21:40)
[2024-08-19] MEDS: Lactobacillis Acidophilus 1 CAP PO ×4 (09:31→21:38)
[2024-08-19] MEDS: Glucerna Shake 120 ML LIQUID PO ×3 (09:31→18:29)
[2024-08-19] MEDS: Ferrous Sulfate 325 MG Tablet PO (09:31)
[2024-08-19] MEDS: Furosemide 40 MG/4 ML Vial IV (09:32)
[2024-08-19] MEDS: Menthol/Lanolin/Calamine/Znox 113 GM Tube 1 APPLIC TOPICAL ×2 (09:46→21:39)
[2024-08-19] MEDS: 0.9% Saline Lock 10 ML Syringe IV (09:46)
[2024-08-19] MEDS: Pregabalin 25 MG Capsule PO ×2 (09:47→21:38)
--- NOTE | 2024-08-19 11:02 | CASEMGMT ---
[facility] has accepted and will submit for precert. Pt notified and she will update her family. Geraldine Steven DC Planning Asst.
--- NOTE | 2024-08-19 11:11 | PCM.PN.HOSP ---
Subjective Subjective Doing well, no issues overnight states that her feet feel itchy Objective Data Objective Data Vital Signs: Vital Signs Temp Pulse Resp BP Pulse Ox O2 Del Method 97.8 F 65 17 107/45 L 95 Room Air 08/19/24 09:27 08/19/24 09:27 08/19/24 09:27 08/19/24 09:27 08/19/24 09:27 08/19/24 09:27 Oxygen Delivery Method Room Air Weight: 163 lb 5.8 oz Body Mass Index (BMI) 33.0 Intake & Output: Intake and Output for Last 24 Hours 08/18/24 08/19/24 08/20/24 03:59 03:59 03:59 Intake Total 468.67 / 468.67 2022.33 / 2021. 112 / 112 Output Total 100 / 100 1500 / 1500 300 / 300 Balance 368.67 / 368.67 522.33 / 522.33 -188 / -188 Lab / Micro Data 08/19/24 04:56 08/19/24 04:56 Labs: Laboratory Results - last 24 hr 08/18/24 10:46: POC Glucose 176 H 08/18/24 17:15: POC Glucose 252 H 08/18/24 21:10: POC Glucose 222 H 08/19/24 04:56: WBC 9.8, RBC 3.15 L, Hgb 8.6 L, Hct 27.0 L, MCV 85.7, MCH 27.3, MCHC 31.9 L, RDW Std Deviation 47.5 H, RDW Coeff of Fady 15.2 H, Plt Count 345, MPV 10.4, Immature Gran % (Auto) 0.500, Neut % (Auto) 84.6 H, Lymph % (Auto) 7.0 L, Major % (Auto) 6.4, Eos % (Auto) 1.3, Baso % (Auto) 0.2, Absolute Neuts (auto) 8.3 H, Absolute Lymphs (auto) 0.69 L, Nucleated RBC % 0, Sodium 137, Potassium 4.0, Chloride 111 H, Carbon Dioxide 19.0 L, Anion Gap 7, BUN 45 H, Creatinine 1.88 H, Estim Creat Clear Calc 22.20, Est GFR (MDRD) Af Amer 33 L, Est GFR (MDRD) Non-Af 28 L, BUN/Creatinine Ratio 23.9 H, Glucose 173 H, Calcium 7.9 L, Phosphorus 2.9, Magnesium 1.7 08/19/24 06:11: POC Glucose 163 H Micro: Microbiology 08/18/24 05:30 Wound - Leg, Left Gram Stain - Final 08/18/24 05:30 Wound - Leg, Left Wound Culture - Preliminary Staphylococcus aureus Radiography Diagnostic Testing: Radiology Impression Venous Doppler Study 08/18/24 05:45 Interpretation Summary Deep veins of the bilateral lower extremities are patent and compressible segmentally. There is no evidence of bilateral lower extremity deep vein thrombosis. The bilateral great saphenous veins appear patent and compressible segmentally. Ordering Physician: Jorge Luis Espinoza Referring Physician: Leonard Stewart Performed By: Poli Wooten, T Chest X-Ray 08/18/24 14:35 IMPRESSION: Stable examination. No acute abnormality is seen. Electronically Signed: Edward Stoll MD at 15:17 EST Reading Location ID and State: [address] [place] [address] , Service support , Physical Exam Narrative General: Alert, Oriented x3, Cooperative, No apparent distress HEENT: Atraumatic, PERRLA, EOMI, Normocephalic Oral: Moist Mucosa Neck: Supple, No JVD Lungs: Diminished, Normal air movement, No rhonchi, No wheeze, No rales Cardiovascular: Regular rate, Regular Rhythm, Normal S1, Normal S2, No murmurs Abdomen: Soft, Non Tender, Non-Distended, No Hepato-splenomegaly Extremities: Slight edema, Capillary Refill Less than 3 Seconds Skin: Bilateral lower extremity wounds currently dressed with chronic venous stasis changes, no obvious signs of discrete redness though there is warmth, lower extremities wrapped Musculoskeletal: No Tenderness to Palpation of Joints or Extremities Neurological: No focal neurological deficits, Motor Exam 5/5 strength throughout, Sensory exam intact to light touch and pain Psych/Mental Status: Normal Affect, Appropriate Assessment & Plan Assessment/Plan (1) Cellulitis: QUALIFIERS: Site of cellulitis: extremity Site of cellulitis of extremity: lower extremity Laterality: unspecified laterality Qualified Code(s): L03.119 - Cellulitis of unspecified part of limb (2) Venous stasis dermatitis of both lower extremities: (3) Acute UTI: (4) CHF exacerbation: QUALIFIERS: Heart failure type: unspecified Qualified Code(s): I50.9 - Heart failure, unspecified (5) NATI (acute kidney injury): PLAN: Plan 1. Bilateral chronic venous stasis changes on his lower extremities possible cellulitis versus UTI/NATI on CKD 4/debility ? She does have bilateral lower extremity wounds though unclear on exam if she has significant redness from a cellulitis versus her chronic venous stasis changes, she does have bilateral warmth ? Urine cultures previously demonstrated Enterococcus faecalis sensitive to ampicillin ?continue with antibiotics to cover both skin and urinary abrahan, blood cultures are pending ? Renal functions improving with diuretics ? Lower extremity Doppler negative for DVT ? PT/OT 2. 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 No signs of heart failure on history as echo in April was negative for diastolic dysfunction and EF was 55% ? BNP can be elevated due to her mild obesity and chronic kidney disease ? Continue with Lasix and monitor renal function 3. DM2 with polyneuropathy ? Continue with sliding scale insulin ? Accu-Cheks ACHS ? A1c of 9.4 4. RA ? Not on any baseline medications 5. Restless leg syndrome ? Stable ? Continue with pramipexole DVT: Heparin Charges/Coding Visit Charges Inpatient E&M: 79059 Subs Hosp L2
[2024-08-19 12:06] LABS: Bedside Glucose 182 mg/dL (74-106)
[2024-08-19 14:38] VITALS: BP 115/50; PULSE 68; RESP 15; TEMP 37.4; O2SAT 94
--- NOTE | 2024-08-19 16:15 | CHAPLAIN ---
Type of Pastoral Visit ___ Initial Visit ___ Follow-up Visit ___ On-call Visit ___ General Patient Visit ___ Spiritual Assessment ___ Family Conference ___ Bereavement ___ Rapid Response ___ Code Blue ___ Other (describe below) Pastoral Care Referral From ___ Patient ___ Family ___ Nurse ___ Physician ___ Product Inspection Coordinator ___ Natural Gas Shothole Driller ___ Other (describe below) Sacrament/Intervention ___ Active listening ___ Anointing ___ Restorationism ___ Bereavement ___ Communion ___ Jessica exploration ___ ___ Life review ___ Prayer ___ Reconciliation ___ Sacrament of Sick ___ Supportive presence ___ Wedding ___ Other (describe below) Pastoral Comments the patient is sleeping but her daughter is at the bedside; offer of support to daughter; she fills in what is happening for her mother and acknowledges the extra stress of caring for mother and an ill brother at this time; encouragement given to daughter and offer to return tomorrow to check on the patient
[2024-08-19 21:29] VITALS: BP 135/53; PULSE 64; RESP 16; TEMP 36.7; O2SAT 96
[2024-08-19] MEDS: Pramipexole Di-HCl 1 MG Tablet 2 MG PO (21:38)
[2024-08-20 03:37] VITALS: BP 120/49; PULSE 60; RESP 18; TEMP 36.3; O2SAT 93
[2024-08-20 05:14] VITALS: BMI 33.0
--- NOTE | 2024-08-20 06:17 | NURSING ---
blood sugars checked with patients stanley 2
[2024-08-20] MEDS: Heparin Injection (Vial) 5,000 UNIT/ML VIAL 5000 UNIT SC (06:18)
[2024-08-20 07:40] LABS: Absolute Lymphocyte Count 1.05 X10^3/uL (0.83-4.51); Absolute Neutrophil Count 6.7 X10^3/uL (2.0-7.7); Basophil# 0.04 X10^3/uL; Basophil% 0.5 % (0-1); Eosinophil# 0.13 X10^3/uL; Eosinophils% 1.5 % (0-5); Hematocrit 27.6 % (37-47); Hemoglobin 8.7 g/dL (12.0-15.0); Lymphocyte # 1.05 X10^3/ul (0.83-4.51); Lymphocyte % 12.1 % (19-41); Mean Corp Hgb Conc 31.5 g/dL (32-36); Mean Corpuscular Hgb 27.2 pg (27.0-32.0); Mean Corpuscular Volume 86.3 fL (81-99); Mean Platelet Vol. 10.5 fl (6.2-12.0); Monocyte# 0.69 X10^3/uL; Monocyte% 7.9 % (0-10); NRBC Flagged by Analyzer 0 % (0-5); Neutrophil # 6.71 X10^3/uL (2.7-7.7); Neutrophil % 77.1 % (47-70); Platelet Count 345 K/mm3 (150-450); RBC Distribution Width CV 15.1 % (11.6-14.6); RBC Distribution Width SD 47.8 fl (35.1-43.9); White Blood Count 8.7 K/mm3 (4.4-11.0)
[2024-08-20 08:01] LABS: Anion Gap 8 (5-15); BUN 42 mg/dL (7-18); BUN/Creat Ratio 24.6 RATIO (10-20); Calcium,Total 7.9 mg/dL (8.5-10.1); Chloride 111 mmol/L (98-107); Creatinine, Serum 1.71 mg/dL (0.55-1.02); EST Glomerular Filtration Rate 31 mL/min (>60); Est Glom Filt Rate - Afr Amer 37 mL/min (>60); Estimated Creatinine Clearance 24.37 ml/min; Glucose 121 mg/dL (74-106); Potassium 3.9 mmol/L (3.5-5.1); Sodium Level 138 mmol/L (136-145)
[2024-08-20 08:30] VITALS: BP 135/60; PULSE 63; RESP 18; TEMP 37.1; O2SAT 96
[2024-08-20 08:44] VITALS: BP 135/60; PULSE 63; RESP 18; TEMP 37.1; O2SAT 96
--- NOTE | 2024-08-20 08:48 | CASEMGMT ---
[facility] obtained auth to admit. Geraldine Steven DC Planning Asst.
[2024-08-20] MEDS: Ferrous Sulfate 325 MG Tablet PO (08:51)
--- NOTE | 2024-08-20 10:36 | TREXTCAR_ITS ---
Diet Diet Order/Speech Therapy: 08/17/24 23:15 Diet: Consistent Carb - Calorie Controlled Food consistency:: Regular Liquid Consistency:: Regular/Thin Dietary Modifications:: Cardiac / Heart Healthy How many daily calories?: 1800 calorie Routine Orders/Code Status Routine Lab Work: CBC and BMP Code Status: Full Code DC O2, CPAP, BIPAP needs Home O2 Discharge instructions: No Wound(s) right heel: Wound Type: Pressure Injury Dressing Change: dry, well padded dressing left scherer: Wound Type: Stasis Ulcer Dressing Change: Adaptic top of right foot: Wound Type: open wound/cellulitis top of right foot 2: Wound Type: open wound/cellulitis right calf: Wound Type: open wound/cellulitis right posterior calf: Wound Type: open wound/cellulitis right wrist: Wound Type: scab left pointer finger: Wound Type: scab left heel: Wound Type: Pressure Injury Dressing Change: dry, well padded dressing right anterior ankle: Wound Type: cluster of blood blisters Dressing Change: dry dressing right posterior lower leg: Wound Type: Stasis Ulcer Dressing Change: Adaptic rt posterior upper/inner thigh: Wound Type: Skin Tear Therapies Physical Therapy: Eval and Treat Occupational Therapy: Eval and Treat Problem/Diagnosis (1) Cellulitis: Status: Acute Code(s): L03.90 - Cellulitis, unspecified (2) Venous stasis dermatitis of both lower extremities: Status: Acute Code(s): I87.2 - Venous insufficiency (chronic) (peripheral) (3) Acute UTI: Status: Acute Code(s): N39.0 - Urinary tract infection, site not specified (4) CHF exacerbation: Status: Chronic Code(s): I50.9 - Heart failure, unspecified (5) NATI (acute kidney injury): Status: Acute Code(s): N17.9 - Acute kidney failure, unspecified Plan 1. Bilateral chronic venous stasis changes on his lower extremities possible cellulitis versus UTI/NATI on CKD 4/debility ? She does have bilateral lower extremity wounds though unclear on exam if she has significant redness from a cellulitis versus her chronic venous stasis changes, she does have bilateral warmth ? Urine cultures previously demonstrated Enterococcus faecalis sensitive to ampicillin ?continue with antibiotics to cover both skin and urinary abrahan, blood cultures are pending ? Renal functions improving with diuretics ? Lower extremity Doppler negative for DVT ? PT/OT 2. 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 No signs of heart failure on history as echo in April was negative for diastolic dysfunction and EF was 55% ? BNP can be elevated due to her mild obesity and chronic kidney disease ? Continue with Lasix and monitor renal function 3. DM2 with polyneuropathy ? Continue with sliding scale insulin ? Accu-Cheks ACHS ? A1c of 9.4 4. RA ? Not on any baseline medications 5. Restless leg syndrome ? Stable ? Continue with pramipexole DVT: Heparin Allergies/Procedures Done in Hospital Allergies finerenone (From Kerendia) Adverse Reaction (Severe, Verified 08/17/24 18:18) Other HYPERKALEMIA Procedures: None Type of Care/Length of Stay Estimated LOS: Convalescent Care Less Than 30 days Type of Care Needed: Skilled Rehab Potential: Fair Prognosis: Fair Additional Orders/Day of Discharge Day of Discharge: 08/20/24 Dietary and Speech Recommendations Dietitian Recommendations/Changes: Continue cardiac; 1800 calorie controlled/consistent carbohydrate diet Continue 120ml glucerna TID with medpass. Will monitor weight. Reviewed and approved by Jessica Sapp RDN, LD. Discharge Plan Admission Admit Date/Time: 08/17/24 22:24 Attending Provider: Clark Trevino Primary Care Provider: Leonard Stewart Consulting Providers: Jorge Luis Espinoza Discharge Orders/Prescriptions Prescriptions: New amoxicillin-pot clavulanate 875-125 mg tablet 1 tab PO BID Qty: 14 0RF Continued furosemide 40 mg tablet 40 mg PO DAILY Patient Comments: TAKE 1 TABLET BY MOUTH ONCE DAILY (DME) Free[facility] See Rx Instructions .ROUTE .MEDSUPPLY Qty: 2 6RF Rx Instructions: As directed ferrous sulfate 325 MG tablet 325 mg PO DAILY pramipexole 1 mg tablet 2 mg PO QHS pregabalin 25 mg capsule 25 mg PO BID Humalog Mix 50-50 KwikPen 100 unit/mL (50-50) insulin pen See Rx Instructions subcut DAILY Rx Instructions: subcutaneously daily; SLIDING SCALE ergocalciferol (vitamin D2) 1,250 mcg (50,000 unit) capsule 1,250 mcg PO QWEEK oxycodone 10 mg tablet 10 mg PO 4X/DAY 3 Days Qty: 12 0RF (DME) OneTouch Verio test strips Strip See Rx Instructions .ROUTE .MEDSUPPLY Qty: 100 3RF Rx Instructions: 3x/day (DME) FreeStyle Antione 2 Sensor Kit See Rx Instructions .Route Qty: 6 1RF Rx Instructions: As directed (DME) pen needle, diabetic [BD Ultra-Fine Tracee Pen Needle] 32 gauge x 5/32 needle See Rx Instructions .ROUTE .MEDSUPPLY Qty: 100 5RF Rx Instructions: As directed5 times daily Referrals / Follow Up: Leonard Stewart DO [Primary Care Provider] - Disposition Disposition (needs filled in before D/C Order can be placed): [facility] (1) Cellulitis Qualifiers: Laterality: unspecified laterality Site of cellulitis: extremity Site of cellulitis of extremity: lower extremity Qualified Code(s): L03.119 - Cellulitis of unspecified part of limb (4) CHF exacerbation Qualifiers: Heart failure type: unspecified Qualified Code(s): I50.9 - Heart failure, unspecified
[2024-08-20] MEDS: Lactobacillis Acidophilus 1 CAP PO (10:42)
[2024-08-20] MEDS: Furosemide 40 MG/4 ML Vial IV (10:43)
[2024-08-20] MEDS: 0.9% Saline Lock 10 ML Syringe IV (10:43)
[2024-08-20] MEDS: Nystatin Powder 15gm Bottle 1 APPLIC TOPICAL (10:43)
[2024-08-20] MEDS: Ampicillin/Sulbactam 3 GM in 0.9% Normal Saline (100mL MB+) 100 ML IV (10:43)
[2024-08-20] MEDS: Pregabalin 25 MG Capsule PO (10:43)
[2024-08-20] MEDS: Menthol/Lanolin/Calamine/Znox 113 GM Tube 1 APPLIC TOPICAL (10:46)
[2024-08-20 11:55] VITALS: BP 140/67; PULSE 68; RESP 16; TEMP 36.9; O2SAT 99
--- NOTE | 2024-08-20 12:09 | CASEMGMT ---
Patient is ready for discharge to [facility]. SW completed a 7000 in [facility] system. Physicians will transport patient via wheelchair van. Plan: d/c to [facility] under skilled level of care on a convalescent stay. Physicians will transport patient via wheelchair van. Mary BABCOCK
--- NOTE | 2024-08-20 12:13 | CASEMGMT ---
Discharge Planning Discharge orders, signed med list, and transport time sent to [facility]. Physicians will transport patient by wheelchair at 2p. Nursing, SW, pt, and her daughter (Juliann) updated. Geraldine Steven DC Planning Asst.
--- NOTE | 2024-08-20 12:32 | DS.PCM_ITS ---
Providers Date of Admission: 08/17/24 Primary Care Physician: Dr. Leonard Stewart, DO Consultations 08/17/24 23:15 Consult: Onc/Wound/degreaser operator Routine Comment: Reason for Consult:: Bilateral lower extremity cellulitis with chronic venous stasis. Reason For Visit: B/L LE CELLULITIS, UTI, NATI & GENERALIZED WEAKNESS
--- NOTE | 2024-08-20 12:32 | PCM.DC.SUM ---
Providers Date of Admission: 08/17/24 Primary Care Physician: Dr. 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 Reason For Visit: B/L LE CELLULITIS, UTI, NATI & GENERALIZED WEAKNESS Diagnosis Discharge Diagnosis (1) Cellulitis: Status: Acute Code(s): L03.90 - Cellulitis, unspecified Qualifiers: Site of cellulitis: extremity Site of cellulitis of extremity: lower extremity Laterality: unspecified laterality Qualified Code(s): L03.119 - Cellulitis of unspecified part of limb (2) Venous stasis dermatitis of both lower extremities: Status: Acute Code(s): I87.2 - Venous insufficiency (chronic) (peripheral) (3) Acute UTI: Status: Acute Code(s): N39.0 - Urinary tract infection, site not specified (4) CHF exacerbation: Status: Chronic Code(s): I50.9 - Heart failure, unspecified Qualifiers: Heart failure type: unspecified Qualified Code(s): I50.9 - Heart failure, unspecified (5) NATI (acute kidney injury): Status: Acute Code(s): N17.9 - Acute kidney failure, unspecified Medications at Discharge Home Medications ferrous sulfate 325 mg (65 mg iron) tablet 325 mg PO DAILY supplement 08/14/17 furosemide 40 mg tablet 40 mg PO DAILY diuretic 11/09/20 pramipexole 1 mg tablet 2 mg PO QHS rls 05/11/21 flash glucose scanning reader ([place]ountain AlarmStyle Antione 2 Doon) #2 ea 12/17/21 insulin lispro protamine-lispro 100 unit/mL (50-50) subcutaneous pen (Humalog Mix 50-50 KwikPen) See Rx Instructions subcut DAILY t2dm 09/24/23 blood sugar diagnostic (OneTouch Verio test strips) #100 ea 10/24/23 flash glucose sensor (FreeStyle Antione 2 Sensor kit) #6 ea 10/24/23 pen needle, diabetic 32 gauge x 5/32 (BD Ultra-Fine Tracee Pen Needle) #100 ea 10/24/23 ergocalciferol (vitamin D2) 1,250 mcg (50,000 unit) capsule 1,250 mcg PO QWEEK 11/18/23 pregabalin 25 mg capsule 25 mg PO BID 08/13/24 amoxicillin 875 mg-potassium clavulanate 125 mg tablet 1 tab PO BID #14 tabs 08/20/24 oxycodone 10 mg tablet 10 mg PO 4X/DAY chronic pain 3 days #12 tabs 08/20/24 Hospital Course Operations None Procedures None Summary of Care Provided Minutes Spent on Discharge: 36 Hospital Course: Per HPI: CASANDRA GARCIA, is a 79 F with a past medical history of essential hypertension; on furosemide, obesity; with BMI of 34.2 this admission, DM-2; of unknown control on insulin lispro, diabetic polyneuropathy; on pregabalin twice daily, CAD; s/p non-ST elevation MA (2020), history of SSS; s/p PPM, CKD; stage IV, chronic anemia; on chronic ferrous sulfate, RA, RLS; on pramipexole, history of gastric bypass (2005), history of vitamin D deficiency; currently on supplementation, history of hysterectomy, history of CTS; s/p release, chronic venous stasis dermatitis with a history of ulceration of both lower extremities causing cellulitis, history of COVID-19, osteoporosis, history of Right femur fracture; s/p ORIF, OA; with history of bilateral THR (2019) and previous back surgery (2012) with subsequent chronic pain syndrome on oxycodone 10 mg p.o. 4 times daily as needed and history of recent fall approximately 4 days ago with patient subsequently diagnosed with UTI; with cultures positive for Enterococcus sensitive to ampicillin - but with patient not taking the prescribed antibiotics after being called about her positive urine culture who presents to [facility] ER complaining of worsening redness and swelling of both lower extremities. Ms. Garcia reports her symptoms began ~3 to 4 days prior to admission with a gradual onset of progressively worsening redness and swelling of her legs that is much worse than normal. She also admits to intermittent subjective fevers and generalized weakness but she denies chills, sweats, nausea, vomiting, diarrhea, constipation, shortness of breath or chest pain. In the ER she was diagnosed with Bilateral Lower Extremity Cellulitis in the setting of known chronic venous stasis dermatitis complicated by recently diagnosed, but as yet untreated Acute Cystitis; without hematuria with corresponding Leukocytosis of 13.1 K present on admission compounded by suspected NATI in the setting of stage IV CKD with elevated serum creatinine of 2.28 mg/dL, elevated BUN of 51 mg/dL and eGFR of 22 mL/min present on admission (up from her baseline serum creatinine of 1.87 mg/dL, BUN of 45 mg/dL and eGFR of 28 mL/min 4 days ago) plus she was noted to have an elevated BNP of 903 pg/mL present on admission consistent with suspected AE CHF of uncertain type all culminating to cause worsening Generalized Weakness with Ambulatory Dysfunction after recent Fall 4 days ago and she was then admitted to the general medical floor for ongoing care for stay that is expected to extend beyond 2 midnights. Hospital Course: 1. Bilateral chronic venous stasis changes on lower extremities with possible cellulitis versus local wound with Enterococcus UTI/NATI on CKD 4/debility?79-year-old female presented to the hospital with a recent history of UTI that was growing Enterococcus faecalis sensitive to ampicillin. She was also found to have chronic venous stasis changes with lower extremity wounds unclear as to the degree of cellulitis as it was hard to demarcate however her wounds did grow MSSA. She was placed on Unasyn on admission and will be discharged on p.o. Augmentin for another 7 days. Renal function did improve with IV diuresis we will continue with her p.o. Lasix on discharge. I discussed with her the plan for discharge today she expressed understanding of the risk and benefits of going to the correction and would like to go today. 2. History of non-STEMI with pacemaker placed for sick sinus syndrome, essential hypertension, type 2 diabetes with polyneuropathy, rheumatoid arthritis, restless leg syndrome are all chronic medical conditions which complicate her care. Her home medications were continued where appropriate Physical Exam Narrative General: Alert, Oriented x3, Cooperative, No apparent distress HEENT: Atraumatic, PERRLA, EOMI, Normocephalic Oral: Moist Mucosa Neck: Supple, No JVD Lungs: Diminished, Normal air movement, No rhonchi, No wheeze, No rales Cardiovascular: Regular rate, Regular Rhythm, Normal S1, Normal S2, No murmurs Abdomen: Soft, Non Tender, Non-Distended, No Hepato-splenomegaly Extremities: Slight edema, Capillary Refill Less than 3 Seconds Skin: Bilateral lower extremity wounds currently dressed with chronic venous stasis changes, no obvious signs of discrete redness though there is warmth, lower extremities wrapped Musculoskeletal: No Tenderness to Palpation of Joints or Extremities Neurological: No focal neurological deficits, Motor Exam 5/5 strength throughout, Sensory exam intact to light touch and pain Psych/Mental Status: Normal Affect, Appropriate Weight / BMI Weight Weight: 163 lb 5.8 oz Body Mass Index (BMI) 33.0 ABG / Lab / Microbiology Data 08/20/24 07:08 08/20/24 07:08 Laboratory: Laboratory Results - last 24 hr 08/20/24 07:08: WBC 8.7, RBC 3.20 L, Hgb 8.7 L, Hct 27.6 L, MCV 86.3, MCH 27.2, MCHC 31.5 L, RDW Std Deviation 47.8 H, RDW Coeff of Fady 15.1 H, Plt Count 345, MPV 10.5, Immature Gran % (Auto) 0.900, Neut % (Auto) 77.1 H, Lymph % (Auto) 12.1 L, [place] % (Auto) 7.9, Eos % (Auto) 1.5, Baso % (Auto) 0.5, Absolute Neuts (auto) 6.7, Absolute Lymphs (auto) 1.05, Nucleated RBC % 0, Sodium 138, Potassium 3.9, Chloride 111 H, Carbon Dioxide 19.0 L, Anion Gap 8, BUN 42 H, Creatinine 1.71 H, Estim Creat Clear Calc 24.37, Est GFR (MDRD) Af Amer 37 L, Est GFR (MDRD) Non-Af 31 L, BUN/Creatinine Ratio 24.6 H, Glucose 121 H, Calcium 7.9 L Microbiology: Microbiology 08/18/24 05:30 Wound - Leg, Left Gram Stain - Final 08/18/24 05:30 Wound - Leg, Left Wound Culture - Preliminary Staphylococcus aureus D/C Instructions DC O2, CPAP, BIPAP Needs Home O2 Discharge instructions: No Meaningful Use Info Meaningful Use Meaningful Use Diagnoses (Choose all that apply): None applicable Ischemic Stroke Statin Dosing Therapy Reference: STATIN DOSE THERAPY REFERENCE: * Patients > 75 years receive moderate or high dose statin therapy. * Patients 75 years or YOUNGER should receive HIGH intensity statin dose unless contraindicated. You will be required to document reason for non-treatment if statin daily dose does not meet guidelines. HIGH DOSE STATIN THERAPY DAILY Atorvastatin > than or = to 40 mg Rosuvastatin > than or = to 20 mg Amlodipine + Atorvastatin > than or = to 2.5/40 mg Ezetimibe + Simvastatin 10/80 mg Simvastatin 80mg Discharge Plan Admission Admit Date/Time: 08/17/24 22:24 Attending Provider: Clark Trevino Primary Care Provider: Leonard Stewatr Consulting Providers: Jorge Luis Espinoza Discharge Orders/Prescriptions Prescriptions: New amoxicillin-pot clavulanate 875-125 mg tablet 1 tab PO BID Qty: 14 0RF Continued furosemide 40 mg tablet 40 mg PO DAILY Patient Comments: TAKE 1 TABLET BY MOUTH ONCE DAILY (DME) FreeStyle Antione 2 Doon Misc See Rx Instructions .ROUTE .MEDSUPPLY Qty: 2 6RF Rx Instructions: As directed ferrous sulfate 325 MG tablet 325 mg PO DAILY pramipexole 1 mg tablet 2 mg PO QHS pregabalin 25 mg capsule 25 mg PO BID Humalog Mix 50-50 KwikPen 100 unit/mL (50-50) insulin pen See Rx Instructions subcut DAILY Rx Instructions: subcutaneously daily; SLIDING SCALE ergocalciferol (vitamin D2) 1,250 mcg (50,000 unit) capsule 1,250 mcg PO QWEEK oxycodone 10 mg tablet 10 mg PO 4X/DAY 3 Days Qty: 12 0RF (DME) OneTouch Verio test strips Strip See Rx Instructions .ROUTE .MEDSUPPLY Qty: 100 3RF Rx Instructions: 3x/day (DME) FreeStyle Antione 2 Sensor Kit See Rx Instructions .Route Qty: 6 1RF Rx Instructions: As directed (DME) pen needle, diabetic [BD Ultra-Fine Tracee Pen Needle] 32 gauge x 5/32 needle See Rx Instructions .ROUTE .MEDSUPPLY Qty: 100 5RF Rx Instructions: As directed5 times daily Referrals / Follow Up: Leonard Stewart DO [Primary Care Provider] - Disposition Disposition (needs filled in before D/C Order can be placed): [facility] Charges/Coding Visit Charges Inpatient E&M: 14781 Disch Hosp >30min
[2024-08-20] MEDS: Insulin Lispro 100 UNIT/ML INSULN.PEN SC (12:50)
--- NOTE | 2024-08-20 12:53 | CHAPLAIN ---
Type of Pastoral Visit _x__ Initial Visit ___ Follow-up Visit ___ On-call Visit ___ General Patient Visit ___ Spiritual Assessment ___ Family Conference ___ Bereavement ___ Rapid Response ___ Code Blue ___ Other (describe below) Pastoral Care Referral From _x__ Patient ___ Family ___ Nurse ___ Physician ___ Cuff Runner ___ Enterprise Application Analyst ___ Other (describe below) Sacrament/Intervention _x__ Active listening ___ Anointing ___ Druze ___ Bereavement ___ Communion ___ Jessica exploration ___ ___ Life review _x__ Prayer ___ Reconciliation ___ Sacrament of Sick _x__ Supportive presence ___ Wedding ___ Other (describe below) Pastoral Comments patient is awake today and welcomes this water tester for support; pt tells of her fall and the pain that caused; pt speaks of being transferred to a SNF and that she is somewhat anxious about it; pt does state that her was there before but she has not been a resident; pt goal is to have renewed health and strength; pt says that she would appreciate a prayer by this water tester for her encouragement today
--- NOTE | 2024-08-20 15:51 | NURSING ---
This RN accessed this pt chart after discharge to answer questions about insulin dosing that Sultana Arias called into the unit with.
== END 2024-08-20 14:18 | disposition skilled nursing facility (03) | DRG 638 ==
LOC: ED 22:07 → PCU 22:32
PROVIDERS: Admitting Provider Internal Medicine; Emergency Provider Emergency Medicine; PCP Family Medicine; Visit Provider Family Medicine
DX: E11.628 Type 2 diabetes mellitus with other skin complications (principal); L03.115 Cellulitis of right lower limb; I13.0 Hypertensive heart and chronic kidney disease with heart failure and stage 1 through stage 4 chronic kidney disease, or unspecified chronic kidney disease; N30.00 Acute cystitis without hematuria; L03.116 Cellulitis of left lower limb; B95.2 Enterococcus as the cause of diseases classified elsewhere; D64.9 Anemia, unspecified; E11.22 Type 2 diabetes mellitus with diabetic chronic kidney disease; N17.9 Acute kidney failure, unspecified; I50.9 Heart failure, unspecified; N18.4 Chronic kidney disease, stage 4 (severe); G25.81 Restless legs syndrome; E66.9 Obesity, unspecified; E11.42 Type 2 diabetes mellitus with diabetic polyneuropathy; I87.2 Venous insufficiency (chronic) (peripheral); Z79.4 Long term (current) use of insulin; I25.10 Atherosclerotic heart disease of native coronary artery without angina pectoris; I25.2 Old myocardial infarction; E11.65 Type 2 diabetes mellitus with hyperglycemia; R26.89 Other abnormalities of gait and mobility; Z91.81 History of falling; R53.1 Weakness; Z90.710 Acquired absence of both cervix and uterus; Z68.34 Body mass index [BMI] 34.0-34.9, adult; Z79.891 Long term (current) use of opiate analgesic; R53.81 Other malaise; R79.89 Other specified abnormal findings of blood chemistry; Z95.0 Presence of cardiac pacemaker; Z79.899 Other long term (current) drug therapy; G89.4 Chronic pain syndrome; Z96.643 Presence of artificial hip joint, bilateral
CPT/HCPCS: 36415; 71045; 80048; 80053; 81001; 82607; 82746; 82962; 83036; 83605; 83735; 83880; 84100; 84443; 85025; 85379; 87040; 87070; 87077; 87186; 87205; 87640; 93970; 97116; 97163; 97166; 97167; 97530; 97535; 97802; 99284; 99406; P9047; P9612; A4216; J0295; J1940

== ENCOUNTER 2024-11-30 09:00 | Outpatient (RCR) | payer MEDICARE, SELFPAY ==
[2024-11-23 08:18] VITALS: BP 165/61; PULSE 67; RESP 18; TEMP 35.8; BMI 23.4
--- NOTE | 2024-11-23 10:19 | HP.PCM_ITS ---
History of Present Illness Date of Service: 11/23/24 Chief Complaint: Bilateral lower extremity swelling and edema with ulcerations of the right lower extremity History of Wound: This is a 78-year-old female who presented with 2 open sores on her right lower extremity, which had been present for approximately 6 weeks. She denied trauma to the areas, indicating that they occurred spontaneously. She had been using Medihoney topically to her ulcerations recently. She has experienced chronic swelling and edema in her lower extremities bilaterally. She is relatively inactive. She sits for long periods each day. She sews and watches TV a good deal of each day. She claims to sleep on a flat mattress at night. She lives with her grandson, who looks after her needs. It is noted that she was recently hospitalized for urinary tract infection. She is morbidly obese, with a BMI of 34.9. She suffers from multiple pre-existing medical problems, which are documented below. Most recent laboratory results are from October 13, 2023, with results as follows: White blood count 5.8, hemoglobin 9.8, hematocrit 31.8, platelets 311,000, potassium 5.0, sodium 138, chloride 113, glucose 183, calcium 8.2, phosphorus 4.2, albumin 3.2. Progress of Wound: Patient has a right posterior heel ulceration in setting of pressure wound formation after recovery and nursing facility. Patient denies fever chills nausea vomiting chest pain calf pain shortness of breath. Patient has no other complaints. 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 Obesity (BMI 30.0-34.9) Venous stasis ulcer Venous stasis dermatitis Dependent edema Left leg swelling Right leg swelling Leg edema, left Leg edema, right Urinary tract infection Insulin dependent diabetes mellitus UTI (urinary tract infection) Edema Presence of cardiac pacemaker Sick sinus syndrome Bilateral primary osteoarthritis of knee Rheumatoid arthritis History of renal insufficiency History of diabetes mellitus History of non-ST elevation myocardial infarction (NSTEMI) (03/21/21) Diabetes Cellulitis Anxiety Depression Hip fracture requiring operative repair Age related osteoporosis Osteoarthritis Cardiac murmur Type 2 diabetes mellitus without complications Carpal tunnel syndrome Arthritis Anemia Traumatic ulcer of left lower leg Fracture of femur, subcapital, right, closed Edema of both lower extremities Dermatitis Femoral neck fracture Rheumatoid arthritis Ulcer of right lower extremity with fat layer exposed Venous stasis dermatitis of both lower extremities Open wound of left lower extremity Home Medications ?Medication ?Instructions ?Recorded ?Last Taken ?Type ferrous sulfate 325 mg (65 mg 325 mg PO DAILY suppleme nt 08/14/17 03/20/21 History iron) tablet furosemide 40 mg tablet 40 mg PO DAILY diuretic 03/2403/21/21 History flash glucose scanning reader #2 ea 12/17/21 Unknown R x (FreeStyle Antione 2 [place]) insulin lispro protamine-lispro See Rx Instructions booth bcut DAILY 09/24/23 Unknown History 100 unit/mL (50-50) subcutaneous t2dm pen (Humalog Mix 50-50 KwikPen) blood sugar diagnostic (OneTouch #100 ea 10/24/23 Unkn own Rx Verio test strips) flash glucose sensor (FreeStyle #6 ea 10/24/23 Unknown Rx Antione 2 Sensor kit) pen needle, diabetic 32 gauge x #100 ea 10/24/23 Unkno wn Rx (BD Ultra-Fine Tracee Pen Needle) ergocalciferol (vitamin D2) 1,250 1,250 mcg PO QWEEK 0 11/18/23 Unknown History mcg (50,000 unit) capsule oxycodone 10 mg tablet 10 mg PO 4X/DAY chronic pain 3 08/20/24 Unknown Rx days #12 tabs ascorbic acid (vitamin C) 500 mg 500 mg PO QDAY Unknown History tablet gabapentin 100 mg capsule 100 mg PO TID 09/07/24 Unkno wn History (Neurontin) insulin glargine 100 unit/mL 6 unit subcut QPM 5 Unknown History subcutaneous solution zinc gluconate 50 mg tablet 50 mg PO QDAY 09/07/24 Unk nown History gabapentin 300 mg capsule 300 mg PO BID neuropathic pa in 11/23/24 Unknown History (Neurontin) Allergy/AdvReac Type Severity Reaction Status Date / Time finerenone (From Kerendia) AdvReac Severe Other Verified 09/07/24 13:55 Family History Mother Diabetes Father Diabetes Surgical History History of hysterectomy History of carpal tunnel release History of total right hip replacement History of total left hip replacement History of back surgery History of gastric bypass Social History household members: family number of children: 2 current occupational status: retired Smoking Status: Never smoker alcohol intake: never substance use type: does not use ROS Eyes Eyes: Denies change in eye color, change in vision or foreign body ENT HEENT: Denies ear discharge, mucositis or sinus pressure Cardiovascular Cardiovascular: Denies bluish discoloration of hand/feet, dyspnea on exertion or nausea Respiratory/Chest Respiratory/Chest: Denies difficulty clearing secretions, dry cough or non-rest sleep EDS Vital Signs Vital Signs Vital Signs: 11/23/24 08:18 Temperature 96.5 F L Temperature Source Temporal Pulse Rate 67 Respiratory Rate 18 Blood Pressure 165/61 H Blood Pressure Mean 95 Blood Pressure Source Monitor Blood Pressure Position Semi-Fowlers Blood Pressure Location Left Arm Weight Weight: 76.204 kg Body Mass Index (BMI) 23.4 Physical Exam Narrative Vascular: Dorsalis pedis posterior tibial pulses palpable 2 out of 4 to bilateral lower extremity. Varicosities noted bilateral lower extremity with +1 pitting edema noted to foot ankle and leg. Neurologic: Light touch protective sensation diminished bilateral feet. Dermatologic: Full-thickness ulceration noted to the posterior right heel down to the level of subcutaneous tissue. Mixed fibrogranular base approximately 85 granulation tissue, 15% fibrotic tissue. No deep probing undermining or acute signs of infection. Musculoskeletal: No gross deformity contributing to wound formation. Muscular strength full to bilateral lower extremity compartments. Const alert and oriented x3 Debridement Note Debridement Note Post-Debridement Measurements and Additional Note: Post-Debridement Measurements/Treatment WC - Nurse 1 - General Ulcer Assessment Start: 11/23/24 08:18 Freq: Status: Active Protocol: [email or web address].DORIS Activity Type Activity Date Activity User E-sign Co-sign Detail Recorded Client Recorded Date Recorded By Document 11/23/24 08:18 KW [id number] 11/23/24 08:26 KW Edit Result 11/23/24 08:18 KW (1) [id number] 11/23/24 08:30 KW (1) Left - Posterior Tibial Doppler => Multiphasic - Dorsalis Pedis Doppler => Multiphasic - Hair Growth on Legs => Yes - Hair Growth on Toes => No - Temperature of Extremity => Cool - Capillary Refill => Less than 3 => Seconds - Thick => Yes - Discolored => Yes - Deformed => No - Improper Length & Hygeine => No Right - Posterior Tibial Doppler => Monophasic - Dorsalis Pedis Doppler => Monophasic - Hair Growth on Legs => Yes - Hair Growth on Toes => No - Temperature of Extremity => Cool - Capillary Refill => Less than 3 => Seconds - Thick => Yes - Discolored => Yes - Deformed => No - Improper Length & Hygeine => No Preferred language => Estonian Client Service Consultant Required => No Able to Read => Yes Able to Write => Yes Communication Tools => None Right Hearing Abillity => Normal Left Hearing Abillity => Normal Visual Assistive Devices => None Preferences => Verbal,Written, => Demonstration Barriers to Learning => None Readiness To Learn => Excellent Willingness to Engage in Self Management => High Activies Readiness to Engage in Self Management => High Activities Anxiety Level => Calm Cooperation => Cooperative Perception => Coherent Interest in Health Problem => Asks Questions Education Importance => Acknowledges Need Does Patient Smoke tobacco or other => Yes substances Smoking Status => Never smoker Is Patient Diabetic => Yes Recent Decline in Ability to Perform => Denies Any => Declines Cultural/Hindu Needs that may affect => No Treatment Plan Would you allow our hospital industrial relations representative to => No meet you for the purpose of spiritual/ emotional support? Feller Seam Operator to contact place of holiness => No 11/23/24 08:18 - Today's Visit Information Type of service Follow-up Visit (Physician/FACILITY SALES AND ADMIN ) Arrival Mode Wheelchair Transfer Assistance Manual Patient Identification Verified (Name & Yes ) Patient Requires Transmission-Based No Precautions Height and Weight Height 5 ft 11 in Weight 76.204 kg Weight in Pounds 168.0 lbs Body Mass Index (BMI) 23.4 BMI Classification Normal Vital Signs Temperature (97.8 F-99.1 F) 96.5 F L Temperature Source Temporal Pulse Rate (60-100) 67 Pulse Location Monitor Respiratory Rate (12-18) 18 Respiratory rate source Observation Blood Pressure (90/60-120/80) 165/61 H Blood Pressure Mean 95 Source Monitor Position Semi-Fowlers Blood Pressure Location Left Arm History Since Last Visit- (Skip if this is Patient's initial visit) Have you changed medications since your No last visit? Any new allergies or adverse reactions No Had a fall/change in ADL's that may No increase risk of falls Signs or symptoms of abuse and/or No neglect since last visit Have you been in the hospital since your No last visit? Has dressing in place as prescribed Yes Has compression in place as prescribed No Has offloadiing in place as prescribed No Experienced any changes in pain level or No management Left Footwear Regular Shoe Right Footwear Regular Shoe Pain Scale: 0-10 Numeric Is Patient Pain Free? Yes Lower Extremity Assessment/ Foot Assessment/ Toe Nail Assessment Left -Posterior Tibial Doppler Multiphasic -Dorsalis Pedis Doppler Multiphasic -Hair Growth on Legs Yes -Hair Growth on Toes No -Temperature of Extremity Cool -Capillary Refill Less than 3 Seconds -Thick Yes -Discolored Yes -Deformed No -Improper Length & Hygeine No Right -Posterior Tibial Doppler Monophasic -Dorsalis Pedis Doppler Monophasic -Hair Growth on Legs Yes -Hair Growth on Toes No -Temperature of Extremity Cool -Capillary Refill Less than 3 Seconds -Thick Yes -Discolored Yes -Deformed No -Improper Length & Hygeine No Communication Assessment Preferred language Estonian Client Service Consultant Required No Able to Read Yes Able to Write Yes Communication Tools None Right Hearing Abillity Normal Left Hearing Abillity Normal Visual Assistive Devices None Teaching Assessment Preferences Verbal,Written, Demonstration Barriers to Learning None Readiness To Learn Excellent Willingness to Engage in Self Management High Activies Readiness to Engage in Self Management High Activities Anxiety Level Calm Cooperation Cooperative Perception Coherent Interest in Health Problem Asks Questions Education Importance Acknowledges Need Does Patient Smoke tobacco or other Yes substances Smoking Status Never smoker Is Patient Diabetic Yes Functional Assessment Recent Decline in Ability to Perform Denies Any Declines Culture/Hindu/Feller Seam Operator Cultural/Hindu Needs that may affect No Treatment Plan Would you allow our hospital industrial relations representative to No meet you for the purpose of spiritual/ emotional support? Feller Seam Operator to contact place of holiness No WC - Nurse 1 - General Ulcer Measurement Start: 11/23/24 08:18 Freq: Status: Active Protocol: Activity Type Activity Date Activity User E-sign Co-sign Detail Recorded Client Recorded Date Recorded By Document 11/23/24 08:18 KW [id number] 11/23/24 08:26 KW 11/23/24 08:18 Wound Center Nurse 1 #7. RT HEEL -Current Size (cm) - Length 5 -Current Size (cm) - Width 4.5 -Current Size (cm) - Depth 0.1 -Total Square Cm 22.5 -Date of Last Picture (Recall this 11/23/24 field) -Exudate Amt Large -Exudate Type Serosanguineous -Wound Margin Distinct, Outline Attached -Granulation Amt Large (67-100%) -Granulation Quality Red -Necrosis Amt Small (1-33%) -Necrotic Tissue Type Adherent Slough -Texture (Stefany-wound Skin Appearance) Assessed -Moisture (Stefany-wound Skin Appearance) Assessed -Color (Stefany-wound Skin Appearance) Assessed -Temperature (Stefany-wound Skin No Abnormality Appearance) (Pt Warm) -Tenderness on Palpation (Stefany-wound No Skin Appearance) -Ulcer Cleansing Soap and Water -Foul Odor after Cleansing No -Anesthetic Used 5% Lidocaine Gel Right Calf (cm) 39 Right Ankle (cm) 22.5 Left Calf (cm) 36.7 Left Ankle (cm) 22.5 WC - Nurse 2 - General Ulcer CM Notes Start: 11/23/24 08:18 Freq: Status: Active Protocol: Activity Type Activity Date Activity User E-sign Co-sign Detail Recorded Client Recorded Date Recorded By Document 11/23/24 09:02 ATIYA [id number] 11/23/24 09:05 ATIYA 11/23/24 09:02 Wound Center Nurse 2 #7. RT HEEL -Time 09:03 -Correct Patient Yes -Correct Side, Site, Position Yes -Correct Procedure Yes -Procedure Performed Yes -Type of Procedure Debridement -Clinical Debridement Subcutaneous -Tissue Removed Subcutaneous -Post Debridement (cm) - Length 5 -Post Debridement (cm) - Width 4.5 -Post Debridement (cm) - Depth 0.2 -Total Square (Post) (cm) 22.5 -Area of Debridement (cm) - Length 5 -Area of Debridement (cm) - Width 4.5 -Total Square (Area) (cm) 22.5 -Tunneling No -Undermining/Tunneling No -Circular Undermining No -Wound/Ulcer Outcome Not Healed -Ulcer Cleansing Rinsed/ Irrigated with Saline -Foul Odor after Cleansing No -Bioengineered Tissue No -Bleeding Controlled with Pressure -Treatment Response Procedure Tolerated Well -Offloading No -Debridement - Subq, 1st 20sq cm Yes -Debridement, SubQ, ea addt'l 20sq cm 1 or part thereof Pain Scale: 0-10 Numeric Is Patient Pain Free? Yes - Nurse 3 - General Ulcer D/C NN Start: 11/23/24 08:18 Freq: Status: Active Protocol: Activity Type Activity Date Activity User E-sign Co-sign Detail Recorded Client Recorded Date Recorded By Document 11/23/24 09:28 KW [id number] 11/23/24 09:29 KW 11/23/24 09:28 Wound Care Center Nurse 3 #7. RT HEEL -Primary Dressing Applied Promogran Arun Matter -Primary Dressing Covered/Secured with Dry Gauze,Dry Gauze & Roll Gauze,Secured with Tape -Promogran Arun Matter 2 -Wound Comment(s) formed a nurses hat for heal. Sent extra arun home for changes. Pain Scale: 0-10 Numeric Is Patient Pain Free? Yes WC - Visit Discharge Discharge Condition Stable Ambulatory Status Wheelchair Transportation Private Auto Medication Reconcilliation completed & No provided to patient/care provider Clinical Summary of Care Provided Yes Assessment/Plan Assessment/Plan (1) Other specified peripheral vascular diseases: CODE(S): I73.89 - Other specified peripheral vascular diseases PLAN: Exam performed. Chronic ulceration right heel setting of pressure injury Discussed etiology and emphasize importance of offloading heels bilaterally when sleeping in supine position via heel float or Prevalon boots. Will plan for daily Arun dressing changes to right heel patient can weightbearing as tolerated as it is a posterior heel wound Will plan for advanced wound care grafting upon insurance approval Right heel wound was excisionally debrided down to including level of subcutaneous tissue of all nonviable tissue using a 5 mm dermal curette. Topical anesthesia used. Hemostasis obtained with light compression. Patient tolerated procedure well pre and postdebridement measurements document nursing notes. Arterial studies ordered. Patient follow-up in 1 week. (2) Non-pressure chronic ulcer of other part of right foot with fat layer exposed: CODE(S): L97.512 - Non-pressure chronic ulcer of other part of right foot with fat layer exposed
--- NOTE | 2024-11-25 09:05 | WC ---
PHOTO 11/23/24 RIGHT HEEL
[2024-11-30 09:14] VITALS: BP 108/46; PULSE 73; RESP 18; TEMP 36.2; BMI 23.4
--- NOTE | 2024-11-30 09:50 | PCM.WC.PN ---
History of Present Illness Date of Service: 11/30/24 Chief Complaint: Bilateral lower extremity swelling and edema with ulcerations of the right lower extremity History of Wound: This is a 78-year-old female who presented with 2 open sores on her right lower extremity, which had been present for approximately 6 weeks. She denied trauma to the areas, indicating that they occurred spontaneously. She had been using Medihoney topically to her ulcerations recently. She has experienced chronic swelling and edema in her lower extremities bilaterally. She is relatively inactive. She sits for long periods each day. She sews and watches TV a good deal of each day. She claims to sleep on a flat mattress at night. She lives with her grandson, who looks after her needs. It is noted that she was recently hospitalized for urinary tract infection. She is morbidly obese, with a BMI of 34.9. She suffers from multiple pre-existing medical problems, which are documented below. Most recent laboratory results are from October 13, 2023, with results as follows: White blood count 5.8, hemoglobin 9.8, hematocrit 31.8, platelets 311,000, potassium 5.0, sodium 138, chloride 113, glucose 183, calcium 8.2, phosphorus 4.2, albumin 3.2. Progress of Wound: Patient has a right posterior heel ulceration in setting of pressure wound formation after recovery and nursing facility. Patient denies fever chills nausea vomiting chest pain calf pain shortness of breath. Patient has no other complaints. Objective Data Objective Data Vital Signs: Vital Signs Temp Pulse Resp BP O2 Del Method 97.2 F L 73 18 108/46 L Room Air 11/30/24 09:14 11/30/24 09:14 11/30/24 09:14 11/30/24 09:14 11/30/24 09:14 Oxygen Delivery Method Room Air Weight: 76.204 kg Body Mass Index (BMI) 23.4 Physical Exam Narrative Vascular: Dorsalis pedis posterior tibial pulses palpable 2 out of 4 to bilateral lower extremity. Varicosities noted bilateral lower extremity with +1 pitting edema noted to foot ankle and leg. Neurologic: Light touch protective sensation diminished bilateral feet. Dermatologic: Full-thickness ulceration noted to the posterior right heel down to the level of subcutaneous tissue. Mixed fibrogranular base approximately 85 granulation tissue, 15% fibrotic tissue. No deep probing undermining or acute signs of infection. Ingrowing nail to right medial hallux, post I&D scant purulence noted from site. Musculoskeletal: No gross deformity contributing to wound formation. Muscular strength full to bilateral lower extremity compartments. Const alert and oriented x3 Debridement Note Debridement Note Post-Debridement Measurements and Additional Note: Post-Debridement Measurements/Treatment WC - Nurse 1 - General Ulcer Assessment Start: 11/23/24 08:18 Freq: Status: Active Protocol: DANIKAT Activity Type Activity Date Activity User E-sign Co-sign Detail Recorded Client Recorded Date Recorded By Document 11/23/24 08:18 KW [id number] 11/23/24 08:26 KW Edit Result 11/23/24 08:18 KW (1) [id number] 11/23/24 08:30 KW Document 11/30/24 09:14 KW [id number] 11/30/24 09:15 KW (1) Left - Posterior Tibial Doppler => Multiphasic - Dorsalis Pedis Doppler => Multiphasic - Hair Growth on Legs => Yes - Hair Growth on Toes => No - Temperature of Extremity => Cool - Capillary Refill => Less than 3 => Seconds - Thick => Yes - Discolored => Yes - Deformed => No - Improper Length & Hygeine => No Right - Posterior Tibial Doppler => Monophasic - Dorsalis Pedis Doppler => Monophasic - Hair Growth on Legs => Yes - Hair Growth on Toes => No - Temperature of Extremity => Cool - Capillary Refill => Less than 3 => Seconds - Thick => Yes - Discolored => Yes - Deformed => No - Improper Length & Hygeine => No Preferred language => [place] Citizen Senior Investment Analyst Required => No Able to Read => Yes Able to Write => Yes Communication Tools => None Right Hearing Abillity => Normal Left Hearing Abillity => Normal Visual Assistive Devices => None Preferences => Verbal,Written, => Demonstration Barriers to Learning => None Readiness To Learn => Excellent Willingness to Engage in Self Management => High Activies Readiness to Engage in Self Management => High Activities Anxiety Level => Calm Cooperation => Cooperative Perception => Coherent Interest in Health Problem => Asks Questions Education Importance => Acknowledges Need Does Patient Smoke tobacco or other => Yes substances Smoking Status => Never smoker Is Patient Diabetic => Yes Recent Decline in Ability to Perform => Denies Any => Declines Cultural/Taoist Needs that may affect => No Treatment Plan Would you allow our hospital case assembler to => No meet you for the purpose of spiritual/ emotional support? Pc Network Technician to contact place of jehovah's witness => No 11/23/24 11/30/24 08:18 09:14 WC - Today's Visit Information Type of service Follow-up Visit Follow-up Visit (Physician/DRILL RIG OPERATOR HELPER (Physician/DRILL RIG OPERATOR HELPER ) ) Arrival Mode Wheelchair Wheelchair Transfer Assistance Manual Accompanied by daughter Patient Identification Verified (Name & Yes Yes ) Patient Requires Transmission-Based No Precautions Height and Weight Height 5 ft 11 in Weight 76.204 kg Weight in Pounds 168.0 lbs Body Mass Index (BMI) 23.4 23.4 BMI Classification Normal Normal Vital Signs Temperature (97.8 F-99.1 F) 96.5 F L 97.2 F L Temperature Source Temporal Temporal Pulse Rate (60-100) 67 73 Pulse Location Monitor Monitor Respiratory Rate (12-18) 18 18 Respiratory rate source Observation Observation Oxygen Delivery Method Room Air Blood Pressure (90/60-120/80) 165/61 H 108/46 L Blood Pressure Mean (mm Hg) 95 66 Source Monitor Monitor Position Semi-Fowlers Semi-Fowlers Blood Pressure Location Left Arm Left Arm History Since Last Visit- (Skip if this is Patient's initial visit) Have you changed medications since your No No last visit? Any new allergies or adverse reactions No No Had a fall/change in ADL's that may No No increase risk of falls Signs or symptoms of abuse and/or No No neglect since last visit Have you been in the hospital since your No No last visit? Has dressing in place as prescribed Yes Yes Has compression in place as prescribed No Yes Has offloadiing in place as prescribed No N/A Experienced any changes in pain level or No No management Left Footwear Regular Shoe Regular Shoe Right Footwear Regular Shoe Regular Shoe Pain Scale: 0-10 Numeric Is Patient Pain Free? Yes Yes Lower Extremity Assessment/ Foot Assessment/ Toe Nail Assessment Left -Posterior Tibial Doppler Multiphasic -Dorsalis Pedis Doppler Multiphasic -Hair Growth on Legs Yes -Hair Growth on Toes No -Temperature of Extremity Cool -Capillary Refill Less than 3 Seconds -Thick Yes -Discolored Yes -Deformed No -Improper Length & Hygeine No Right -Posterior Tibial Doppler Monophasic -Dorsalis Pedis Doppler Monophasic -Hair Growth on Legs Yes -Hair Growth on Toes No -Temperature of Extremity Cool -Capillary Refill Less than 3 Seconds -Thick Yes -Discolored Yes -Deformed No -Improper Length & Hygeine No Communication Assessment Preferred language [place] Citizen Senior Investment Analyst Required No Able to Read Yes Able to Write Yes Communication Tools None Right Hearing Abillity Normal Left Hearing Abillity Normal Visual Assistive Devices None Teaching Assessment Preferences Verbal,Written, Demonstration Barriers to Learning None Readiness To Learn Excellent Willingness to Engage in Self Management High Activies Readiness to Engage in Self Management High Activities Anxiety Level Calm Cooperation Cooperative Perception Coherent Interest in Health Problem Asks Questions Education Importance Acknowledges Need Does Patient Smoke tobacco or other Yes substances Smoking Status Never smoker Is Patient Diabetic Yes Functional Assessment Recent Decline in Ability to Perform Denies Any Declines Culture/Taoist/Pc Network Technician Cultural/Taoist Needs that may affect No Treatment Plan Would you allow our hospital case assembler to No meet you for the purpose of spiritual/ emotional support? Pc Network Technician to contact place of jehovah's witness No WC - Nurse 1 - General Ulcer Measurement Start: 11/23/24 08:18 Freq: Status: Active Protocol: Activity Type Activity Date Activity User E-sign Co-sign Detail Recorded Client Recorded Date Recorded By Document 11/23/24 08:18 KW [id number] 11/23/24 08:26 KW Document 11/30/24 09:14 KW [id number] 11/30/24 09:15 KW 11/23/24 11/30/24 08:18 09:14 Wound Center Nurse 1 #7. RT HEEL -Current Size (cm) - Length 5 3.3 -Current Size (cm) - Width 4.5 4 -Current Size (cm) - Depth 0.1 0.1 -Total Square Cm 22.5 13.2 -Date of Last Picture (Recall this 11/23/24 11/30/24 field) -Exudate Amt Large Small -Exudate Type Serosanguineous Serosanguineous -Wound Margin Distinct, Distinct, Outline Outline Attached Attached -Granulation Amt Large (67-100%) Large (67-100%) -Granulation Quality Red Red -Necrosis Amt Small (1-33%) Small (1-33%) -Necrotic Tissue Type Adherent Slough Adherent Slough -Texture (Stefany-wound Skin Appearance) Assessed Assessed -Moisture (Stefany-wound Skin Appearance) Assessed Assessed -Color (Stefany-wound Skin Appearance) Assessed Assessed -Temperature (Stefany-wound Skin No Abnormality No Abnormality Appearance) (Pt Warm) (Pt Warm) -Tenderness on Palpation (Stefany-wound No No Skin Appearance) -Ulcer Cleansing Soap and Water Rinsed/ Irrigated with Saline -Foul Odor after Cleansing No No -Anesthetic Used 5% Lidocaine 5% Lidocaine Gel Gel Right Calf (cm) 39 34.5 Right Ankle (cm) 22.5 21 Left Calf (cm) 36.7 34.5 Left Ankle (cm) 22.5 20.5 WC - Nurse 2 - General Ulcer CM Notes Start: 11/23/24 08:18 Freq: Status: Active Protocol: Activity Type Activity Date Activity User E-sign Co-sign Detail Recorded Client Recorded Date Recorded By Document 11/23/24 09:02 [email or web address] [id number] 11/23/24 09:05 Document 11/30/24 09:19 [id number] 11/30/24 09:25 11/23/24 11/30/24 09:02 09:19 Wound Center Nurse 2 #7. RT HEEL -Time 09:03 09:23 -Correct Patient Yes Yes -Correct Side, Site, Position Yes Yes -Correct Procedure Yes Yes -Procedure Performed Yes Yes -Type of Procedure Debridement Debridement -Clinical Debridement Subcutaneous Subcutaneous -Tissue Removed Subcutaneous Subcutaneous -Post Debridement (cm) - Length 5 3.5 -Post Debridement (cm) - Width 4.5 3.5 -Post Debridement (cm) - Depth 0.2 0.2 -Total Square (Post) (cm) 22.5 12.25 -Area of Debridement (cm) - Length 5 3.5 -Area of Debridement (cm) - Width 4.5 3.5 -Total Square (Area) (cm) 22.5 12.25 -Tunneling No No -Undermining/Tunneling No No -Circular Undermining No No -Wound/Ulcer Outcome Not Healed Not Healed -Ulcer Cleansing Rinsed/ Rinsed/ Irrigated with Irrigated with Saline Saline -Foul Odor after Cleansing No No -Bioengineered Tissue No No -Bleeding Controlled with Pressure Pressure -Treatment Response Procedure Procedure Tolerated Well Tolerated Well -Offloading No No -Debridement - Subq, 1st 20sq cm Yes Yes -Debridement, SubQ, ea addt'l 20sq cm 1 or part thereof Pain Scale: 0-10 Numeric Is Patient Pain Free? Yes Yes - Nurse 3 - General Ulcer D/C NN Start: 11/23/24 08:18 Freq: Status: Active Protocol: Activity Type Activity Date Activity User E-sign Co-sign Detail Recorded Client Recorded Date Recorded By Document 11/23/24 09:28 KW [id number] 11/23/24 09:29 KW Document 11/30/24 09:33 ML [id number] 11/30/24 09:45 ML 11/23/24 11/30/24 09:28 09:33 Wound Care Center Nurse 3 #7. RT HEEL -Ulcer Cleansing Rinsed/ Irrigated with Saline -Primary Dressing Applied Promogran Promogran Arun Matter Arun Matter -Primary Dressing Covered/Secured with Dry Gauze,Dry Dry Gauze & Gauze & Roll Roll Gauze, Gauze,Secured Secured with with Tape Tape -Promogran Arun Matter 2 1 -Wound Comment(s) formed a nurses hat for heal. Sent extra arun home for changes. Pain Scale: 0-10 Numeric Is Patient Pain Free? Yes Yes - Visit Discharge Discharge Condition Stable Ambulatory Status Wheelchair Transportation Private Auto Medication Reconcilliation completed & No provided to patient/care provider Clinical Summary of Care Provided Yes Assessment/Plan Assessment/Plan (1) Other specified peripheral vascular diseases: CODE(S): I73.89 - Other specified peripheral vascular diseases PLAN: Exam performed. Chronic ulceration right heel setting of pressure injury Discussed etiology and emphasize importance of offloading heels bilaterally when sleeping in supine position via heel float or Prevalon boots. Will plan for daily Arun dressing changes to right heel patient can weightbearing as tolerated as it is a posterior heel wound Will plan for advanced wound care grafting upon insurance approval Right heel wound was excisionally debrided down to including level of subcutaneous tissue of all nonviable tissue using a 5 mm dermal curette. Topical anesthesia used. Hemostasis obtained with light compression. Patient tolerated procedure well pre and postdebridement measurements document nursing notes. Arterial studies ordered. Patient follow-up in 1 week. Patient set had a second issue today of an ingrowing right medial hallux toenail. Topical anesthesia was applied. Oral consent obtained. Using sterile nail nippers a wedge of nail was removed from the site using aseptic, atraumatic technique performing an I&D to the medial right hallux nail fold. Scant purulence was noted site was flushed and dressed with antibiotic ointment and Band-Aid. (2) Non-pressure chronic ulcer of other part of right foot with fat layer exposed: CODE(S): L97.512 - Non-pressure chronic ulcer of other part of right foot with fat layer exposed (3) Cellulitis of right toe: CODE(S): L03.031 - Cellulitis of right toe
--- NOTE | 2024-12-01 13:28 | WC ---
PHOTO 11/30/24 RIGHT HEEL
== END 2024-12-01 23:59 | disposition home or self-care (01) ==
LOC: WC 09:00
PROVIDERS: PCP Family Medicine; Referring Provider Family Medicine; Visit Provider Podiatrist
DX: E11.621 Type 2 diabetes mellitus with foot ulcer (principal); L97.412 Non-pressure chronic ulcer of right heel and midfoot with fat layer exposed; E66.01 Morbid (severe) obesity due to excess calories; E11.51 Type 2 diabetes mellitus with diabetic peripheral angiopathy without gangrene; E11.42 Type 2 diabetes mellitus with diabetic polyneuropathy; Z79.4 Long term (current) use of insulin; Z68.31 Body mass index [BMI] 31.0-31.9, adult; L03.031 Cellulitis of right toe; M79.89 Other specified soft tissue disorders; R60.0 Localized edema; Z95.0 Presence of cardiac pacemaker; Z79.899 Other long term (current) drug therapy
CPT/HCPCS: 11042; 11045; 99213; G0463

== ENCOUNTER 2024-12-01 13:34 | Outpatient (RCR) | payer MEDICARE, SELFPAY | END 2024-12-01 23:59 | LOC: HHLAB 13:34 | PROVIDERS: PCP Family Medicine; Referring Provider Family Medicine; Visit Provider Family Medicine | DX: L89.616 Pressure-induced deep tissue damage of right heel (principal) | CPT/HCPCS: 87077; 87086; 87088; 87186 ==

== ENCOUNTER 2024-12-03 09:35 | Inpatient (IN) | payer MEDICARE, SELFPAY ==
[2024-12-03] VITALS (13 sets, daily range): BP systolic 98–111; BP diastolic 48–81; PULSE 72–91; RESP 16–24; TEMP 36.7–38.4; O2SAT 89–99; BMI 32.1; BMI 32.8
--- NOTE | 2024-12-03 09:58 | ED.VIS.FEGU ---
HPI HPI - Female History of Present Illness Chief Complaint: Complaint Informant: patient Associated Symptoms Associated Symptoms: Positive for Dysuria Narrative Narrative: 79-year-old female history of diabetes. Recently diagnosed with a UTI. The urine culture grew out ESBL E. coli. Sensitive to IV antibiotics. Patient was sent to the emergency department to be admitted. She does live at home. Currently is on an antibiotic to be treated for right lower extremity wound. States she has been getting better and developed a fever this morning. No vomiting or diarrhea. 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 Obesity (BMI 30.0-34.9) Venous stasis ulcer Venous stasis dermatitis Dependent edema Left leg swelling Right leg swelling Leg edema, left Leg edema, right Urinary tract infection Insulin dependent diabetes mellitus UTI (urinary tract infection) Edema Presence of cardiac pacemaker Sick sinus syndrome Bilateral primary osteoarthritis of knee Rheumatoid arthritis History of renal insufficiency History of diabetes mellitus History of non-ST elevation myocardial infarction (NSTEMI) (03/21/21) Diabetes Cellulitis Anxiety Depression Hip fracture requiring operative repair Age related osteoporosis Osteoarthritis Cardiac murmur Type 2 diabetes mellitus without complications Carpal tunnel syndrome Arthritis Anemia Traumatic ulcer of left lower leg Fracture of femur, subcapital, right, closed Edema of both lower extremities Dermatitis Femoral neck fracture Rheumatoid arthritis Ulcer of right lower extremity with fat layer exposed Venous stasis dermatitis of both lower extremities Open wound of left lower extremity Home Medications ?Medication ?Instructions ?Recorded ?Last Taken ?Type ferrous sulfate 325 mg (65 mg 325 mg PO BID supplement 08/14/17 12/03/24 History iron) tablet furosemide 40 mg tablet 40 mg PO DAILY diuretic 11/09/20 12/03/24 History flash glucose scanning reader #2 ea 12/17/21 Unknown Rx (FreeStyle Antione 2 [place]) insulin lispro protamine-lispro See Rx Instructions subcut DAILY 09/24/23 Unknown History 100 unit/mL (50-50) subcutaneous t2dm pen (Humalog Mix 50-50 KwikPen) blood sugar diagnostic (OneTouch #100 ea 10/24/23 Unknown Rx Verio test strips) flash glucose sensor (FreeStyle #6 ea 10/24/23 Unknown Rx Antione 2 Sensor kit) pen needle, diabetic 32 gauge x #100 ea 10/24/23 Unknown Rx (BD Ultra-Fine Tracee Pen Needle) ergocalciferol (vitamin D2) 1,250 1,250 mcg PO QWEEK 11/18/23 11/29/24 History mcg (50,000 unit) capsule oxycodone 10 mg tablet 10 mg PO 4X/DAY chronic pain 3 08/20/24 12/03/24 Rx days #12 tabs ascorbic acid (vitamin C) 500 mg 500 mg PO BID 09/07/24 12/02/24 History tablet insulin glargine 100 unit/mL 3 unit subcut QPM 09/07/24 12/02/24 History subcutaneous solution zinc gluconate 50 mg tablet 50 mg PO DAILY 09/07/24 12/02/24 History gabapentin 300 mg capsule 300 mg PO BID neuropathic pain 11/23/24 12/03/24 History (Neurontin) pramipexole 1 mg tablet 1 - 2 mg PO QHS 11/23/24 12/02/24 History acetaminophen 500 mg tablet 1,000 mg PO 4X/DAY PRN fever or 12/03/24 12/02/24 History (Acetaminophen Extra Strength) pain calcitriol 0.25 mcg capsule 0.25 mcg PO DAILY 12/03/24 12/02/24 History glucagon HCl 1 mg solution for 1 mg IM Q20M PRN hypoglycemia 12/03/24 Unknown History injection (Glucagon (HCl) Emergency Kit) Allergy/AdvReac Type Severity Reaction Status Date / Time finerenone (From [place]) AdvReac Severe Other Verified 12/03/24 09:44 Family History Mother Diabetes Father Diabetes Surgical History History of hysterectomy History of carpal tunnel release History of total right hip replacement History of total left hip replacement History of back surgery History of gastric bypass Social History household members: family number of children: 2 current occupational status: retired Smoking Status: Never smoker alcohol intake: never substance use type: does not use ROS ROS ED ROS Narrative Fever. Dysuria. Constitutional Constitutional ED: Reports fever(s) Eyes Eyes: Denies blurry vision ENT ENT ED: Denies ear pain Cardiovascular Cardiovascular: Denies chest pain Respiratory/Chest Respiratory/Chest: Denies cough Gastrointestinal Gastrointestinal: Denies abdominal pain Genitourinary Genitourinary ED: Reports dysuria Musculoskeletal Musculoskeletal: Denies arthralgias Integumentary Denies abscess Neurologic Neurologic: Denies headache(s) Psychiatric Psychiatric: Denies anxiety Endocrine Endocrinology: Denies heat intolerance Hematologic/Lymphatic Hematologic/Lymphatic: Denies easy bleeding, easy bruising or lymphadenopathy Allergic/Immunologic Allergic/Immunologic ED: Denies mouth swelling, tongue swelling or urticaria EXAM Physical Exam Narrative Exam Narrative: 79-year-old female sitting upright in bed. Vital signs are stable pressure 111/54. Temperature nine 9.2. Pulse ox 89% on room air 96% on 2 L. She does not look septic or toxic. She does clinically look mildly dehydrated. H EENT exam pupils round reactive light. No trauma. Dry mucous membranes. Neck nontender. Back nontender kyphotic. Lungs clear to auscultation bilaterally. Heart regular rhythm rate about 90 no murmur. Chest wall ribs nontender. Abdomen soft nontender. Moving all 4 extremities. She has a wound on her right lower extremity that is has a dressing over it. Dorsi plantarflexion intact. Normal deaf interpreter strength. Neurologically she is awake and alert. Answering questions and following commands. Daughter is at bedside. Const Vital Signs: 12/03/24 09:36 12/03/24 09:43 12/03/24 09:46 Temperature 99.2 F H 99.2 F H Temperature Source Oral Oral Pulse Rate 91 91 Respiratory Rate 24 H 23 H Blood Pressure 111/54 L 111/54 L Blood Pressure Mean 73 73 Pulse Ox 89 89 96 Oxygen Delivery Method Room Air Room Air Nasal Cannula Oxygen Flow Rate (L/min) 2 12/03/24 09:56 12/03/24 10:10 12/03/24 10:49 Temperature 99.3 F H 101.2 F H Temperature Source Oral Oral Pulse Rate 87 83 Respiratory Rate 18 16 Blood Pressure 104/48 L 109/50 L Blood Pressure Mean 66 69 Pulse Ox 96 96 97 Oxygen Delivery Method Room Air Nasal Cannula Oxygen Flow Rate (L/min) 2 2 12/03/24 11:00 Temperature 98.4 F Temperature Source Oral Pulse Rate 82 Respiratory Rate 16 Blood Pressure 100/60 Blood Pressure Mean 73 Pulse Ox 94 Oxygen Delivery Method Room Air Oxygen Flow Rate (L/min) Positive well nourished and well developed; Negative for cachectic, contractures or unkempt General Appearance ED: well developed and NAD; Negative for unkempt, cachectic, contractures or pallor Nutritional Appearance: Negative for cachectic HEENT Reports dry mucous membranes Negative for trauma or tenderness Mouth ED: Yes dry mucous membranes Mouth: dry mucous membranes Eyes PERRL and EOMs intact bilaterally General Eye ED: Negative for pale conjunctiva Neck no lymphadenopathy, supple and no JVD Chest Wall inspection of chest normal and palpation of chest normal Resp normal respiratory effort and clear to auscultation bilaterally Cardio regular rate, regular rhythm, S1 normal heart sound, no murmurs and no JVD GI normal to inspection, nondistended, normoactive bowel sounds, soft to palpation, non-tender, non-distended and no masses Auscultation: normoactive bowel sounds Palpation: Negative for tender, guarding or rigid Back/Spine no CVA tenderness General Back: Negative for CVA tenderness Cervical Spine: Negative for cervical spine tenderness Thoracic Spine / Upper Back: Negative for thoracic spinal tenderness Lumbar Spine / Lower Back: Negative for lumbar spinal tenderness Extremity Negative for normal to inspection Extremity Narrative: Wound right lower extremity. Bandaged. General Extremety ED: Negative for edema or tenderness General Extremity: Negative for edema Neuro oriented x3 Sensorium / Orientation: alert, oriented to person, oriented to place and oriented to time Psych mental status grossly normal Appearance: Negative for unkempt Speech: No other Mood & Affect: Negative for depressed, anxious or tearful Skin no rashes or lesions noted and no wounds General Skin Exam: Negative for jaundice or pallor Rashes: No rashes noted MDM MDM MDM Narrative Medical decision making narrative: 79-year-old female reported ESBL E. coli UTI. She will be started on Zosyn have already reviewed the culture results and sensitivity. She will be given a liter of fluid due to clinical dehydration screening labs to be obtained and she will be admitted. Repeat exam patient doing well 11:24 AM. Hospitalist paged for admission. She is already been started on broad-spectrum IV antibiotics that are consistent with her culture and sensitivity results.Patient was given normal saline fluid bolus of 1 L due to her dehydration and acute kidney injury. Patient is resting comfortably. We have gone over her test results and treatment plan her and her family are comfortable with the admission. History & Record Review Discussion w/independent historian: Patient and Family Additional record(s) reviewed:: Prior inpatient record, Prior outpatient record, Prior ED visit and Prior labs Lab Data Attestation: I reviewed the patient's lab results. Lab results narrative: CBC shows a white count 13.6. H&H 8.6 and 26 consistent with baseline anemia. Platelets 253. PT/INR 15 and 1.2. PTT of 48. Electrolytes show a sodium 128. Potassium of 5.8. Gap of 14. BUN is 73 creatinine 3.36. She has chronic kidney disease but this is worse consistent with acute kidney injury. Glucose 159. Lactic acid normal at 1.4. Liver enzymes unremarkable other than alk phos of 132. UA shows 25-50 white cells. Rare bacteria. No nitrates. There is a recent urine culture consistent with ESBL E. coli. Labs: Laboratory Results - last 24 hr 12/03/24 10:11 WBC 13.6 H RBC 2.88 L Hgb 8.6 L Hct 26.6 L MCV 92.4 MCH 29.9 MCHC 32.3 RDW Std Deviation 56.7 H RDW Coeff of [place] 16.8 H Plt Count 253 MPV 9.9 Immature Gran % (Auto) 0.400 Neut % (Auto) 94.5 H Lymph % (Auto) 1.8 L [place] % (Auto) 3.2 Eos % (Auto) 0.0 Baso % (Auto) 0.1 Absolute Neuts (auto) 12.8 H Absolute Lymphs (auto) 0.25 L Nucleated RBC % 0 PT 15.0 H INR 1.2 APTT 48.4 H Sodium 128 L Potassium 5.8 H Chloride 102 Carbon Dioxide 12.7 L Anion Gap 14 BUN 73 H Creatinine 3.36 H Estim Creat Clear Calc 12.25 L Est GFR (MDRD) Non-Af 13 L BUN/Creatinine Ratio 21.7 H Glucose 159 H Lactic Acid 1.4 Calcium 7.8 Total Bilirubin 0.17 AST 20 ALT 10 Alkaline Phosphatase 132 H Total Protein 5.9 Albumin 2.9 L Globulin 2.9 Albumin/Globulin Ratio 1.0 Urine Color Yellow Urine Clarity Clear Urine pH 5.0 Ur Specific [place] 1.015 Urine Protein 30 H Urine Glucose (UA) Normal Urine Ketones Negative Urine Occult Blood 25 H Urine Nitrite Negative Urine Bilirubin Negative Urine Urobilinogen Normal Ur Leukocyte Esterase 500 H Urine RBC 0 SEEN Urine WBC 25-50 SEEN Ur Squamous Epith Cells 0-5 SEEN Urine Bacteria RARE Urine Mucus 0 SEEN Discharge Plan Dx/Rx/DC Orders Clinical Impression: Acute UTI, Acute kidney injury, Infection due to bacteria resistant to multiple antimicrobial drugs, Acute dehydration, History of diabetes mellitus, Acute hyperkalemia Disposition Disposition: Acute Care [facility]
[2024-12-03 10:26] LABS: Mucous, Urine 0 SEEN /hpf (<or=2+); Red Blood Cells-Urine 0 SEEN /hpf (0-5)
[2024-12-03 10:29] LABS: Color, Urine Yellow (Yellow); Glucose, Dipstick Normal (Normal); Ketone-Dipstick Negative (Negative); Leukocyte Esterase-Dipstick 500 /ul (Negative); Nitrite-Dipstick Negative (Negative); Occult Blood-Urine 25 /ul (Negative); Protein-Dipstick 30 mg/dl (Negative); Specific Gravity, Urine 1.015 (1.002-1.030); Urine Bilirubin Dipstick Negative (Negative); Urine Clarity Clear (Clear); Urine Urobilinogen Normal (Normal)
[2024-12-03] MEDS: Piperacil/Tazobactam 4.5 GM in 0.9% Normal Saline (100mL MB+) 100 ML IV (10:35)
[2024-12-03] MEDS: 0.9% Normal Saline (1000mL) 1,000 ML 999 ML IV ×2 (10:35→11:29)
[2024-12-03 10:36] LABS: Bacteria RARE /hpf (None Seen); Squamous Epithelial Cells - UA 0-5 SEEN /hpf (5-10); White Blood Cells 25-50 SEEN /hpf (0-5)
[2024-12-03 10:43] LABS: International Normalized Ratio 1.2
[2024-12-03] MEDS: Acetaminophen 500 MG Tablet 1000 MG PO (10:43)
[2024-12-03 10:45] LABS: Absolute Lymphocyte Count 0.25 X10^3/uL (0.83-4.51); Absolute Neutrophil Count 12.8 X10^3/uL (2.0-7.7); Basophil# 0.02 X10^3/uL; Basophil% 0.1 % (0-1); Hematocrit 26.6 % (37-47); Hemoglobin 8.6 g/dL (12.0-15.0); Lymphocyte # 0.25 X10^3/ul (0.83-4.51); Lymphocyte % 1.8 % (19-41); Mean Corp Hgb Conc 32.3 g/dL (32-36); Mean Corpuscular Hgb 29.9 pg (27.0-32.0); Mean Corpuscular Volume 92.4 fL (81-99); Mean Platelet Vol. 9.9 fl (6.2-12.0); Monocyte# 0.44 X10^3/uL; Monocyte% 3.2 % (0-10); NRBC Flagged by Analyzer 0 % (0-5); Neutrophil # 12.82 X10^3/uL (2.7-7.7); Neutrophil % 94.5 % (47-70); POSITIVE DIFFERENTIAL YES; Partial Thromboplast Time 48.4 Seconds (24.1-36.2); Platelet Count 253 K/mm3 (150-450); RBC Distribution Width CV 16.8 % (11.6-14.6); RBC Distribution Width SD 56.7 fl (35.1-43.9); Red Blood Count 2.88 M/mm3 (4.2-5.4); White Blood Count 13.6 K/mm3 (4.4-11.0)
--- NOTE | 2024-12-03 10:54 | RAD_ITS ---
PROCEDURE: CHEST 1 VIEW (PORTABLE) (RADCXPA_P), 12/03/2024 REASON FOR EXAM: HYPOXIA TECHNIQUE: A single portable AP view of the chest was obtained. COMPARISON: 08/18/2024 FINDINGS: Heart: LEFT chest wall dual lead pacer. Mediastinum: Trace atherosclerosis in the arch. Central vascular prominence. Lungs/pleura: No convincing focal consolidation. No sizeable pleural effusion or visible pneumothorax. Bones: Demineralization. Degenerative changes of RIGHT shoulder including evidence of rotator cuff pathology. Lines and support devices: None. Other: None. RAD/Chest 1 View (Portable) IMPRESSION: 1. Central vascular prominence without overt pulmonary edema. 2. Additional description as above. Reading Location: [id number]
[2024-12-03 10:57] LABS: AST(SGOT) 20 U/L (<=31); Alanine Aminotransfer ALT/SGPT 10 U/L (<=34); Albumin, Serum 2.9 g/dL (3.4-4.8); Alkaline Phosphatase 132 U/L (35-104); Anion Gap 14 (5-15); BUN 73 mg/dL (4-19); BUN/Creat Ratio 21.7 RATIO (10-20); Calcium,Total 7.8 mg/dL (7.6-11.0); Carbon Dioxide 12.7 mmol/L (21.0-32.0); Chloride 102 mmol/L (98-108); Creatinine, Serum 3.36 mg/dL (0.70-1.20); EST Glomerular Filtration Rate 13 (>60); Estimated Creatinine Clearance 12.25 ml/min (50-250); Globulin 2.9 g/dL (2.2-4.2); Glucose 159 mg/dL (70-99); Potassium 5.8 mmol/L (3.3-5.1); Protein, Total 5.9 g/dL (5.9-8.4); Sodium Level 128 mmol/L (133-145); Total Bilirubin 0.17 mg/dL (0.00-1.30)
[2024-12-03 11:06] LABS: Lactic Acid 1.4 mmol/L (0.0-2.0)
--- NOTE | 2024-12-03 12:07 | PCM.HP.STD ---
HPI - General General Date of Admission: 12/03/24 Date of Service: 12/03/24 Chief Complaint: Dysuria with urine cultures positive for ESBL E. coli HPI Narrative CASANDRA JONES, is a 79 F who presented to [facility] ED on 12/03/2024 with dysuria and recent urine cultures positive for ESBL E. coli. Patient follows with home health care and was seen in the home on both 11/30-12/01. She was hospitalized here in August for Enterococcus UTI as well as chronic venous stasis changes with lower extremity wounds concerning for cellulitis. She ultimately was discharged to a long-term facility. She has since returned home but home health care has been following closely for a right posterior heel heel pressure wound with ulceration. She noted to home health care that she was having dysuria and a urine culture was sent on 12/01. Unfortunately this urine culture came back positive for greater than 100,000 ESBL E. coli with significant resistance patterns. Patient also developed mild confusion with new onset fevers and mild dehydration over the past few days so she was sent in to the ED by her PCP for further evaluation. In the ED she was febrile to 101.2F and mildly hypotensive to the 90s over 50s, was otherwise stable on room air. Labs notable for WBC count 13.6, sodium 128, potassium 5.8, bicarb 12, creatinine 3.36, BUN 73. Baseline creatinine is around 1.7-1.8. Lactate was normal. Given all of these findings, hospitalist was contacted for admission. I saw the patient at bedside in the ED, daughter was present. Patient was mildly fatigued appearing but otherwise laying back comfortably in bed, answering questions appropriately and in no acute distress. She was alert and oriented. She denied any acute pain or discomfort currently. Stated that she does currently feel cold but denies any overt fevers or chills. Does continue to report some UTI symptoms. No other acute concerns at this time. 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 Obesity (BMI 30.0-34.9) Venous stasis ulcer Venous stasis dermatitis Dependent edema Left leg swelling Right leg swelling Leg edema, left Leg edema, right Urinary tract infection Insulin dependent diabetes mellitus UTI (urinary tract infection) Edema Presence of cardiac pacemaker Sick sinus syndrome Bilateral primary osteoarthritis of knee Rheumatoid arthritis History of renal insufficiency History of diabetes mellitus History of non-ST elevation myocardial infarction (NSTEMI) (03/21/21) Diabetes Cellulitis Anxiety Depression Hip fracture requiring operative repair Age related osteoporosis Osteoarthritis Cardiac murmur Type 2 diabetes mellitus without complications Carpal tunnel syndrome Arthritis Anemia Traumatic ulcer of left lower leg Fracture of femur, subcapital, right, closed Edema of both lower extremities Dermatitis Femoral neck fracture Rheumatoid arthritis Ulcer of right lower extremity with fat layer exposed Venous stasis dermatitis of both lower extremities Open wound of left lower extremity Home Medications ?Medication ?Instructions ?Recorded ?Last Taken ?Type ferrous sulfate 325 mg (65 mg 325 mg PO BID supplement 08/14/17 12/03/24 History iron) tablet furosemide 40 mg tablet 40 mg PO DAILY diuretic 11/09/20 12/03/24 History flash glucose scanning reader #2 ea 12/17/21 Unknown Rx (FreeStyle Antione 2 [employer]) insulin lispro protamine-lispro See Rx Instructions subcut DAILY 09/24/23 Unknown History 100 unit/mL (50-50) subcutaneous t2dm pen (Humalog Mix 50-50 KwikPen) blood sugar diagnostic (OneTouch #100 ea 10/24/23 Unknown Rx Verio test strips) flash glucose sensor (FreeStyle #6 ea 10/24/23 Unknown Rx Antione 2 Sensor kit) pen needle, diabetic 32 gauge x #100 ea 10/24/23 Unknown Rx /32 (BD Ultra-Fine Tracee Pen Needle) ergocalciferol (vitamin D2) 1,250 1,250 mcg PO QWEEK 11/18/23 11/29/24 History mcg (50,000 unit) capsule oxycodone 10 mg tablet 10 mg PO 4X/DAY chronic pain 3 08/20/24 12/03/24 Rx days #12 tabs ascorbic acid (vitamin C) 500 mg 500 mg PO BID 09/07/24 12/02/24 History tablet insulin glargine 100 unit/mL 3 unit subcut QPM 09/07/24 12/02/24 History subcutaneous solution zinc gluconate 50 mg tablet 50 mg PO DAILY 09/07/24 12/02/24 History gabapentin 300 mg capsule 300 mg PO BID neuropathic pain 11/23/24 12/03/24 History (Neurontin) pramipexole 1 mg tablet 1 - 2 mg PO QHS 11/23/24 12/02/24 History acetaminophen 500 mg tablet 1,000 mg PO 4X/DAY PRN fever or 12/03/24 12/02/24 History (Acetaminophen Extra Strength) pain calcitriol 0.25 mcg capsule 0.25 mcg PO DAILY 12/03/24 12/02/24 History glucagon HCl 1 mg solution for 1 mg IM Q20M PRN hypoglycemia 12/03/24 Unknown History injection (Glucagon (HCl) Emergency Kit) Allergy/AdvReac Type Severity Reaction Status Date / Time finerenone (From Kerendestrella) AdvReac Severe Other Verified 12/03/24 09:44 Family History Mother Diabetes Father Diabetes Surgical History History of hysterectomy History of carpal tunnel release History of total right hip replacement History of total left hip replacement History of back surgery History of gastric bypass Social History household members: family number of children: 2 current occupational status: retired Smoking Status: Never smoker alcohol intake: never substance use type: does not use ROS Constitutional Constitutional: Reports fatigue; Denies chills, fever(s) or weakness Eyes Eyes: Denies change in vision Cardiovascular Cardiovascular: Denies chest pain Respiratory/Chest Respiratory/Chest: Denies cough, shortness of breath at rest or shortness of breath with exertion Gastrointestinal Gastrointestinal: Denies abdominal pain Genitourinary Genitourinary: Reports burning urination and dysuria; Denies difficulty urinating or urinary frequency Musculoskeletal Musculoskeletal: Denies arthralgias or myalgias Neurologic Neurologic: Denies dizziness, focal weakness or headache(s) Vital Signs Vital Signs Vital Signs: 12/03/24 09:36 12/03/24 09:43 12/03/24 09:46 Temperature 99.2 F H 99.2 F H Temperature Source Oral Oral Pulse Rate 91 91 Respiratory Rate 24 H 23 H Blood Pressure 111/54 L 111/54 L Blood Pressure Mean 73 73 Pulse Ox 89 89 96 Oxygen Delivery Method Room Air Room Air Nasal Cannula Oxygen Flow Rate (L/min) 2 12/03/24 09:56 12/03/24 10:10 12/03/24 10:49 Temperature 99.3 F H 101.2 F H Temperature Source Oral Oral Pulse Rate 87 83 Respiratory Rate 18 16 Blood Pressure 104/48 L 109/50 L Blood Pressure Mean 66 69 Pulse Ox 96 96 97 Oxygen Delivery Method Room Air Nasal Cannula Oxygen Flow Rate (L/min) 2 2 12/03/24 11:00 Temperature 98.4 F Temperature Source Oral Pulse Rate 82 Respiratory Rate 16 Blood Pressure 100/60 Blood Pressure Mean 73 Pulse Ox 94 Oxygen Delivery Method Room Air Oxygen Flow Rate (L/min) Weight Weight: 72.3 kg Body Mass Index (BMI) 32.1 Physical Exam Const alert, oriented x3 and no apparent distress Constitutional Narrative: Elderly female, class I obesity, mild to moderately fatigued appearing, otherwise laying back comfortably in bed, answering questions appropriately, in no acute distress. General Appearance: cooperative and comfortable HEENT normocephalic, head/scalp atraumatic, hearing grossly normal bilaterally and nasal mucous membranes and turbinates normal HEENT Narrative: Dry mucous membranes. Eyes PERRL, EOMs intact bilaterally and conjunctivae normal Neck full ROM Chest inspection of chest normal Resp normal respiratory effort, normal air movement, no use of accessory muscles and clear to auscultation bilaterally Cardio regular rate, regular rhythm, no murmurs and peripheral pulses 2+ throughout GI normal to inspection, nondistended, normoactive bowel sounds, soft to palpation, non-tender and non-distended Back/Spine normal ROM Extremity normal to inspection, full ROM and no pedal edema Skin no rashes or lesions noted Psych mental status grossly normal Results Lab / Micro Data 12/03/24 10:11 12/03/24 10:11 Labs: Laboratory Results - last 24 hr 12/03/24 10:11: WBC 13.6 H, RBC 2.88 L, Hgb 8.6 L, Hct 26.6 L, MCV 92.4, MCH 29.9, MCHC 32.3, RDW Std Deviation 56.7 H, RDW Coeff of Fady 16.8 H, Plt Count 253, MPV 9.9, Immature Gran % (Auto) 0.400, Neut % (Auto) 94.5 H, Lymph % (Auto) 1.8 L, [place] % (Auto) 3.2, Eos % (Auto) 0.0, Baso % (Auto) 0.1, Absolute Neuts (auto) 12.8 H, Absolute Lymphs (auto) 0.25 L, Nucleated RBC % 0, PT 15.0 H, INR 1.2, APTT 48.4 H, Sodium 128 L, Potassium 5.8 H, Chloride 102, Carbon Dioxide 12.7 L, Anion Gap 14, BUN 73 H, Creatinine 3.36 H, Estim Creat Clear Calc 12.25 L, Est GFR (MDRD) Non-Af 13 L, BUN/Creatinine Ratio 21.7 H, Glucose 159 H, Lactic Acid 1.4, Calcium 7.8, Total Bilirubin 0.17, AST 20, ALT 10, Alkaline Phosphatase 132 H, Total Protein 5.9, Albumin 2.9 L, Globulin 2.9, Albumin/Globulin Ratio 1.0, Urine Color Yellow, Urine Clarity Clear, Urine pH 5.0, Ur Specific [place] 1.015, Urine Protein 30 H, Urine Glucose (UA) Normal, Urine Ketones Negative, Urine Occult Blood 25 H, Urine Nitrite Negative, Urine Bilirubin Negative, Urine Urobilinogen Normal, Ur Leukocyte Esterase 500 H, Urine RBC 0 SEEN, Urine WBC 25-50 SEEN, Ur Squamous Epith Cells 0-5 SEEN, Urine Bacteria RARE, Urine Mucus 0 SEEN Imaging Radiology Impression Chest X-Ray 12/03/24 10:54 IMPRESSION: 1. Central vascular prominence without overt pulmonary edema. 2. Additional description as above. Reading Location: [id number] Assessment & Plan Assessment/Plan (1) UTI due to extended-spectrum beta lactamase (ESBL) producing Escherichia coli: (2) Acute kidney injury: (3) Acute hyperkalemia: PLAN: Plan Patient is a 79-year-old female who presented to [facility] ED on 12/03/2024 with dysuria and urine culture positive for ESBL E. coli. 1. ESBL E. coli UTI ? Admit under inpatient status to PCU. Urine culture from 12/01 growing greater than 100,000 ESBL E. coli sensitive to Zosyn. UA on admit here with 500 leukocyte esterase, negative nitrates, 25-50 WBCs, rare bacteria. Met SIRS criteria on admit with leukocytosis and fevers but did not meet sepsis criteria. Will treat with IV Zosyn for now. Follow-up blood cultures. Monitor daily CBC. 2. Concern for right lower extremity infection in setting of chronic venous stasis changes with right heel pressure wound ? Follows with Dr. Forbes, last office visit on 11/30. Right heel wound was debrided down to level of subcu tissue at that time with no infectious signs noted. However, patient was also found to have ingrowing right medial hallux toenail and on I&D, scant purulent drainage was noted. Given that patient met SIRS criteria on admit, will empirically treat with IV vancomycin for now. Unfortunately no wound cultures were collected at that time. Follow-up blood cultures. Wound care consulted. Holding home Lasix for now. 3. NATI on CKD stage 4 with mild hyperkalemia and metabolic acidosis ? Creatinine 3.36, BUN 73, potassium 5.8, bicarb 12 on admit. Baseline creatinine 1.7-1.9. No EKG changes noted. Presumed prerenal NATI in setting of infection as noted above. Given 2 L IV fluids in the ED. Will repeat BMP this evening to ensure no worsening of hyperkalemia. Monitor BMP and urine output daily. Continue home calcitriol. 4. Chronic iron deficiency anemia and anemia of kidney disease ? Hemoglobin stable at baseline of 8-9 on admission. Continue home iron supplement. 5. Acute on chronic debility ? PT/OT/case management consulted. Recently required SNF placement after hospitalization in August. Most recently has been following with home health care. Appreciate therapy recommendations. 6. Type 2 diabetes mellitus with neuropathy ? Follows with Dr. Collier. Most recent A1c 6.3% but Dr. Valencia noted this was underestimated in setting of anemia, is likely closer to the 7-8 range. Home regimen of Lantus 3 units at night and Humalog 50-50 mix. Will treat with sliding scale insulin for meals for now, adjust as needed. Continue home gabapentin. 7. Restless leg syndrome ? Continue home pramipexole. 8. Chronic pain syndrome ? Continue home scheduled oxycodone and gabapentin. 9. History of sick sinus syndrome s/p pacemaker placement ? Stable in paced rhythm on admit. DVT prophylaxis: Heparin subcu CODE STATUS: DNR CCA, DNI Expected disposition: TBD Total clinical time spent by myself addressing the patient's medical issues, reviewing all the data, and collaborating with patient's care team: 75 minutes. Charges/Coding Visit Charges Inpatient E&M: 04083 Init Hosp L3
[2024-12-03] MEDS: Vancomycin HCl 1,750 MG in 0.9% Normal Saline (500mL Bag) 500 ML 250 MG IV (12:41)
[2024-12-03] MEDS: oxyCODONE 5 MG Tablet 10 MG PO ×3 (14:36→22:20)
--- NOTE | 2024-12-03 14:39 | WOUNDNOTE ---
wound photo: right heel
--- NOTE | 2024-12-03 14:40 | WOUNDNOTE ---
wound photo: buttocks
--- NOTE | 2024-12-03 14:58 | CHAPLAIN ---
Type of Pastoral Visit _x__ Initial Visit ___ Follow-up Visit ___ On-call Visit ___ General Patient Visit ___ Spiritual Assessment ___ Family Conference ___ Bereavement ___ Rapid Response ___ Code Blue ___ Other (describe below) Pastoral Care Referral From _x__ Patient ___ Family ___ Nurse ___ Physician ___ Machine Cutter ___ Arch Support Maker ___ Other (describe below) Sacrament/Intervention _x__ Active listening ___ Anointing ___ Yazdanism ___ Bereavement ___ Communion _x__ Jessica exploration ___ ___ Life review _x__ Prayer ___ Reconciliation ___ Sacrament of Sick _x__ Supportive presence ___ Wedding ___ Other (describe below) Pastoral Comments 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
[2024-12-03] MEDS: Juven (unflavored) Packet 1 PACKET PO (17:29)
[2024-12-03] MEDS: Insulin Lispro 100 UNIT/ML INSULN.PEN SC ×2 (17:30→22:19)
[2024-12-03 17:46] LABS: Anion Gap 13 (5-15); BUN 68 mg/dL (4-19); BUN/Creat Ratio 20.3 RATIO (10-20); Calcium,Total 7.6 mg/dL (7.6-11.0); Carbon Dioxide 11.5 mmol/L (21.0-32.0); Chloride 101 mmol/L (98-108); Creatinine, Serum 3.34 mg/dL (0.70-1.20); EST Glomerular Filtration Rate 14 (>60); Estimated Creatinine Clearance 12.44 ml/min (50-250); Glucose 373 mg/dL (70-99); Sodium Level 125 mmol/L (133-145)
[2024-12-03] MEDS: Acetaminophen 325 MG Tablet 650 MG PO (20:20)
[2024-12-03] MEDS: Ascorbic Acid 500 MG Tablet PO (22:19)
[2024-12-03] MEDS: Heparin Injection (Vial) 5,000 UNIT/ML VIAL 5000 UNIT SC (22:19)
[2024-12-03] MEDS: 0.9% Normal Saline (250mL Bag) 250 ML 15 ML IV (22:20)
[2024-12-03] MEDS: Pramipexole Di-HCl 1 MG Tablet 2 MG PO (22:20)
[2024-12-03] MEDS: Piperacil/Tazobactam 3.375 GM Q12 PREMIX IV (22:20)
[2024-12-03] MEDS: Gabapentin 300 MG Capsule PO (22:20)
[2024-12-03] MEDS: 0.9% Saline Lock 10 ML Syringe IV (22:21)
[2024-12-03 22:47] LABS: Bedside Glucose 328 mg/dL (74-106)
[2024-12-04] VITALS (8 sets, daily range): BP systolic 89–114; BP diastolic 45–60; PULSE 71–101; RESP 18–28; TEMP 36.4–37.9; O2SAT 94–100
[2024-12-04 04:50] LABS: Hematocrit 25.3 % (37-47); Hemoglobin 8.1 g/dL (12.0-15.0); Mean Corpuscular Hgb 29.5 pg (27.0-32.0); Mean Platelet Vol. 10.6 fl (6.2-12.0); Platelet Count 251 K/mm3 (150-450); RBC Distribution Width CV 16.8 % (11.6-14.6); RBC Distribution Width SD 56.7 fl (35.1-43.9); Red Blood Count 2.75 M/mm3 (4.2-5.4); White Blood Count 16.1 K/mm3 (4.4-11.0)
[2024-12-04 05:25] LABS: Anion Gap 13 (5-15); BUN 81 mg/dL (4-19); BUN/Creat Ratio 21.4 RATIO (10-20); Calcium,Total 7.6 mg/dL (7.6-11.0); Carbon Dioxide 11.1 mmol/L (21.0-32.0); Chloride 104 mmol/L (98-108); Creatinine, Serum 3.79 mg/dL (0.70-1.20); EST Glomerular Filtration Rate 12 (>60); Estimated Creatinine Clearance 10.97 ml/min (50-250); Glucose 176 mg/dL (70-99); Potassium 6.2 mmol/L (3.3-5.1); Sodium Level 128 mmol/L (133-145)
--- NOTE | 2024-12-04 05:56 | PCM.PN.BLA ---
Progress Note Potassium 6.2, will initiate hyperkalemic protocol with repeat BMP following.
[2024-12-04] MEDS: Sodium Polystyrene Sulfonate 15 GM/60 ML UDC PO (06:19)
[2024-12-04] MEDS: Dextrose 10%-Water 250 ML 999 ML IV (06:19)
[2024-12-04] MEDS: Calcium Gluconate 1 GM/10 ML Vial 0.5 GM IVP (06:22)
[2024-12-04] MEDS: Insulin Lispro 10 UNIT in Syringe 0 ML 6 UNIT IV (06:44)
[2024-12-04] MEDS: Albuterol *CONC* 2.5mg/0.5mL VIAL.NEB. 10 MG INHALATION (07:52)
--- NOTE | 2024-12-04 07:52 | US_ITS ---
PROCEDURE: KIDNEY AND BLADDER 12/04/2024 REASON FOR EXAM: UTI, EVAL FOR PYELO TECHNIQUE: Bilateral renal ultrasound. COMPARISON: None. FINDINGS: Kidneys: Normal renal sizes, parenchymal thicknesses, and echotextures. Tiny left renal calculus. [place]: No hydronephrosis. Cysts or Masses: No cysts or large solid renal masses. Other: The urinary bladder is decompressed by indwelling Son catheter. RIGHT Kidney Size: 9.9 x 4.6 x 5.1 cm Volume: 123 mL Parenchymal Thickness: 1.3 cm (>14mm is normal) Cortical Thickness (if discernible): N/a (>6mm is normal) LEFT Kidney Size: 9.4 x 5.3 x 5.2 cm Volume: 135 mL Parenchymal Thickness: 1.0 cm (>14mm is normal) Cortical Thickness (if discernible): N/a (>6mm is normal) US/Kidney and Bladder IMPRESSION: Tiny nonobstructing left renal calculus. No hydronephrosis. Reading Location: [id number]
[2024-12-04] MEDS: Sodium Bicarbonate 50 MEQ in Dextrose 5%-Water (1000mL Bag) 1,000 ML 150 MEQ IV (08:42)
[2024-12-04] MEDS: Piperacil/Tazobactam 3.375 GM Q12 PREMIX IV ×2 (08:45→21:05)
--- NOTE | 2024-12-04 08:45 | CASEMGMT ---
RN CM Face to Face with patient for initial transition planning/care coordination assessment. RN CM introduced self and role at [facility]. Patient lying in bed, alert and oriented. Patient willing to participate in assessment and is able to answer all questions appropriately. Care providers, pharmacy, and demographics verified. Strata: 3 PCP: Pat Specialists: , embedded systems software engineer; Areli, An/Sqq [phone] Sonar System Journeyman; Javier, teacher early childhood development; Preferred Pharmacy: [facility] Insurance: A[employer]M Prescription Benefit: yes Living Will/HPOA: yes, daughter Juliann Followay LNOK: daughter, son Living Arrangements: Patient lives with grandson in a 2 story home with bed and bath on first floor, ramp to enter the home. Patient states that grandson and daughter have been assisting with care. Transportation: family DME/HHC: Patient has shower chair, BSC, raised toilet, grab bars, rollator, wheelchair, glucometer and adjustable bed at home. Patient has been to [facility] and [facility] in the past. Patient is active with [facility]. Patient is unsure of disposition at discharge. Will monitor for IV ATBS and progress with therapy for discharge planning. Patient states she has no further needs or concerns at this time. CM to follow for discharge planning needs that may arise. Disposition Plan: TBD, HHC vs SNF pending course of treatment and progress with therapy.
[2024-12-04 08:49] LABS: Bedside Glucose 189 mg/dL (74-106)
[2024-12-04] MEDS: oxyCODONE 5 MG Tablet 10 MG PO ×2 (09:01→17:34)
[2024-12-04] MEDS: Gabapentin 300 MG Capsule PO (09:01)
[2024-12-04] MEDS: Heparin Injection (Vial) 5,000 UNIT/ML VIAL 5000 UNIT SC ×2 (09:01→21:05)
[2024-12-04] MEDS: Juven (unflavored) Packet 1 PACKET PO (09:04)
[2024-12-04] MEDS: Calcitriol 0.25 MCG Capsule PO (09:07)
[2024-12-04] MEDS: Ascorbic Acid 500 MG Tablet PO (09:07)
[2024-12-04 09:59] LABS: Anion Gap 16 (5-15); BUN 83 mg/dL (4-19); BUN/Creat Ratio 21.6 RATIO (10-20); Carbon Dioxide 10.7 mmol/L (21.0-32.0); Chloride 103 mmol/L (98-108); Creatinine, Serum 3.85 mg/dL (0.70-1.20); EST Glomerular Filtration Rate 11 (>60); Estimated Creatinine Clearance 10.79 ml/min (50-250); Glucose 222 mg/dL (70-99); Potassium 5.1 mmol/L (3.3-5.1); Sodium Level 130 mmol/L (133-145)
--- NOTE | 2024-12-04 10:43 | PN.HOSP_ITS ---
Reason for Visit Reason for Visit: Diagnoses Other Escherichia coli [E. coli] as the cause of diseases classified elsewhere (12/03/24) Hyperkalemia (12/03/24) Acute kidney failure, unspecified (12/03/24) Urinary tract infection, site not specified (12/03/24) Extended spectrum beta lactamase (ESBL) resistance (12/03/24) Subjective Subjective Saw patient at bedside this morning. Patient remained fatigued appearing today, similar to on admission. She reported some neck pain and stiffness and was somewhat uncomfortable appearing while laying in bed. She otherwise was answering questions that showed appropriate responses. No other new concerns today. Objective Data Objective Data Vital Signs: Vital Signs Temp Pulse Resp BP Pulse Ox O2 Del Method O2 Flow Rate 100.2 F H 91 28 H 114/52 L 94 Nasal Cannula 2 12/04/24 09:13 12/04/24 09:13 12/04/24 09:13 12/04/24 09:13 12/04/24 09:13 12/04/24 09:13 12/04/24 09:13 Oxygen Flow Rate (L/min) 2 Oxygen Delivery Method Nasal Cannula Weight: 73.7 kg Body Mass Index (BMI) 32.8 Intake & Output: Intake and Output for Last 24 Hours 12/02/24 12/03/24 12/04/24 23:59 23:59 23:59 Intake Total 3635 / 3635 586.25 / 586.25 Output Total 500 / 500 Balance 3635 / 3635 86.25 / 86.25 Lab / Micro Data 12/04/24 04:13 12/04/24 09:02 Labs: Laboratory Results - last 24 hr 12/03/24 10:11: WBC 13.6 H, RBC 2.88 L, Hgb 8.6 L, Hct 26.6 L, MCV 92.4, MCH 29.9, MCHC 32.3, RDW Std Deviation 56.7 H, RDW Coeff of Fady 16.8 H, Plt Count 253, MPV 9.9, Immature Gran % (Auto) 0.400, Neut % (Auto) 94.5 H, Lymph % (Auto) 1.8 L, [place] % (Auto) 3.2, Eos % (Auto) 0.0, Baso % (Auto) 0.1, Absolute Neuts (auto) 12.8 H, Absolute Lymphs (auto) 0.25 L, Nucleated RBC % 0, PT 15.0 H, INR 1.2, APTT 48.4 H, Sodium 128 L, Potassium 5.8 H, Chloride 102, Carbon Dioxide 12.7 L, Anion Gap 14, BUN 73 H, Creatinine 3.36 H, Estim Creat Clear Calc 12.25 L, Est GFR (MDRD) Non-Af 13 L, BUN/Creatinine Ratio 21.7 H, Glucose 159 H, Lactic Acid 1.4, Calcium 7.8, Total Bilirubin 0.17, AST 20, ALT 10, Alkaline Phosphatase 132 H, Total Protein 5.9, Albumin 2.9 L, Globulin 2.9, Albumin/Globulin Ratio 1.0 12/03/24 16:28: Sodium 125 L, Potassium 6.0 H*, Chloride 101, Carbon Dioxide 11.5 L, Anion Gap 13, BUN 68 H, Creatinine 3.34 H, Estim Creat Clear Calc 12.44 L, Est GFR (MDRD) Non-Af 14 L, BUN/Creatinine Ratio 20.3 H, Glucose 373 H, Calcium 7.6 12/03/24 22:17: POC Glucose 328 H 12/04/24 04:13: WBC 16.1 H, RBC 2.75 L, Hgb 8.1 L, Hct 25.3 L, MCV 92.0, MCH 29.5, MCHC 32.0, RDW Std Deviation 56.7 H, RDW Coeff of Fady 16.8 H, Plt Count 251, MPV 10.6, Sodium 128 L, Potassium 6.2 H*, Chloride 104, Carbon Dioxide 11.1 L, Anion Gap 13, BUN 81 H, Creatinine 3.79 H, Estim Creat Clear Calc 10.97 L, E st GFR (MDRD) Non-Af 12 L, BUN/Creatinine Ratio 21.4 H, Glucose 176 H, Calcium 7.6 12/04/24 08:27: POC Glucose 189 H 12/04/24 09:02: Sodium 130 L, Potassium 5.1, Chloride 103, Carbon Dioxide 10.7 L , Anion Gap 16 H, BUN 83 H, Creatinine 3.85 H, Estim Creat Clear Calc 10.79 L, E st GFR (MDRD) Non-Af 11 L, BUN/Creatinine Ratio 21.6 H, Glucose 222 H, Calcium 8.0 Micro: Microbiology 12/03/24 10:35 Blood Culture (Wb) - Left Forearm Blood Culture - Preliminary Gram negative aimee 12/03/24 10:11 Blood Culture (Wb) - Right Wrist Blood Culture - Preliminary Gram negative aimee Radiography Diagnostic Testing: Radiology Impression Chest X-Ray 12/03/24 10:54 IMPRESSION: 1. Central vascular prominence without overt pulmonary edema. 2. Additional description as above. Reading Location: [facility] Physical Exam Const alert, oriented x3 and no apparent distress Constitutional Narrative: Elderly female, class I obesity, moderately fatigued appearing, somewhat uncomfortable appearing while laying in bed due to neck pain and stiffness, otherwise answering questions with short appropriate responses, in no acute distress. General Appearance: cooperative and comfortable HEENT normocephalic, head/scalp atraumatic, hearing grossly normal bilaterally, nasal mucous membranes and turbinates normal and moist oral mucous membranes Eyes PERRL, EOMs intact bilaterally and conjunctivae normal Neck full ROM Chest inspection of chest normal Resp normal respiratory effort, normal air movement, no use of accessory muscles and clear to auscultation bilaterally Cardio regular rate, regular rhythm, no murmurs and peripheral pulses 2+ throughout GI normal to inspection, nondistended, normoactive bowel sounds, soft to palpation, non-tender and non-distended Back/Spine normal ROM Extremity normal to inspection, full ROM and no pedal edema Skin no rashes or lesions noted Psych mental status grossly normal Assessment & Plan Assessment/Plan (1) UTI due to extended-spectrum beta lactamase (ESBL) producing Escherichia coli: (2) Acute kidney injury: (3) Acute hyperkalemia: PLAN: Plan Patient is a 79-year-old female who presented to [facility] ED on 12/03/2024 with dysuria and urine culture positive for ESBL E. coli. 1. Sepsis secondary to ESBL E. coli UTI with gram-negative bacteremia ? Urine culture from 12/01 growing greater than 100,000 ESBL E. coli sensitive to Zosyn. UA on admit here with 500 leukocyte esterase, negative nitrates, 25-50 WBCs, rare bacteria. Met sepsis criteria on admission with leukocytosis, fevers, NATI and presumed urinary source. Blood cultures on 12/03 preliminarily positive for gram-negative rods. Continue treatment with IV Zosyn for now. Continue to monitor daily CBC. 2. Concern for right lower extremity infection in setting of chronic venous stasis changes with right heel pressure wound ? Follows with Dr. Forbes, last office visit on 11/30. Right heel wound was debrided down to level of subcu tissue at that time with no infectious signs noted. However, patient was also found to have ingrowing right medial hallux toenail and on I&D, scant purulent drainage was noted. Unfortunately no wound cultures were collected at that time. Blood cultures preliminarily positive for gram-negative rods as noted above. Suspect UTI is primary source of infection but will empirically treat with continue to vancomycin for now. Wound care consulted. Holding home Lasix for now. 3. NATI on CKD stage 4 with hyperkalemia and metabolic acidosis ? Nephrology consulted. Creatinine 3.36, BUN 73, potassium 5.8, bicarb 12 on admit. Baseline creatinine 1.7-1.9. No EKG changes noted. Presumed prerenal NATI in setting of infection as noted above. Given 2 L IV fluids in the ED but unfortunately patient's kidney function has continued to worsen and potassium remaining around 6. Treating hyperkalemia medically as needed. Started on IV bicarbonate maintenance fluids on 12/04. Monitor BMP and urine output daily. Continue home calcitriol. Appreciate nephrology recommendations. 4. Chronic iron deficiency anemia and anemia of kidney disease ? Hemoglobin stable at baseline of 8-9 on admission. Continue home iron supplement. 5. Acute on chronic debility ? PT/OT/case management following. Recently required SNF placement after hospitalization in August. Most recently has been following with home health care. Poor therapy scores at this point, will need to either SNF or home with home health care on discharge. 6. Type 2 diabetes mellitus with neuropathy ? Follows with Dr. Collier. Most recent A1c 6.3% but Dr. Valencia noted this was underestimated in setting of anemia, is likely closer to the 7-8 range. Home regimen of Lantus 3 units at night and Humalog 50-50 mix. Will treat with high- dose sliding scale insulin for meals for now, adjust as needed. Continue home gabapentin. 7. Restless leg syndrome ? Continue home pramipexole. 8. Chronic pain syndrome ? Continue home scheduled oxycodone and gabapentin. 9. History of sick sinus syndrome s/p pacemaker placement ? Stable in paced rhythm on admit. DVT prophylaxis: Heparin subcu CODE STATUS: DNR CCA, DNI Expected disposition: SNF versus home with HHC, TBD Total clinical time spent by myself addressing the patient's medical issues, reviewing all the data, and collaborating with patient's care team: 35 minutes. Charges/Coding Visit Charges Inpatient E&M: 25298 Subs Hosp L2
[2024-12-04 12:22] LABS: Bedside Glucose 300 mg/dL (74-106)
[2024-12-04 12:38] LABS: Anion Gap 12 (5-15); BUN 84 mg/dL (4-19); BUN/Creat Ratio 21.9 RATIO (10-20); Calcium,Total 7.5 mg/dL (7.6-11.0); Carbon Dioxide 11.7 mmol/L (21.0-32.0); Chloride 105 mmol/L (98-108); Creatinine, Serum 3.85 mg/dL (0.70-1.20); EST Glomerular Filtration Rate 11 (>60); Estimated Creatinine Clearance 10.79 ml/min (50-250); Glucose 293 mg/dL (70-99); Potassium 5.2 mmol/L (3.3-5.1); Sodium Level 128 mmol/L (133-145)
[2024-12-04] MEDS: Insulin Lispro 100 UNIT/ML INSULN.PEN SC ×2 (12:50→17:26)
[2024-12-04 17:11] LABS: Urine Sodium 23 mmol/L (Not Establ.)
[2024-12-04] MEDS: Sodium Bicarbonate 50 MEQ in Dextrose 5%-Water (1000mL Bag) 1,000 ML 75 MEQ IV (17:33)
--- NOTE | 2024-12-04 17:36 | CON.PCM.RE_ITS ---
Assessment & Plan Assessment/Plan (1) Acute hyperkalemia: PLAN: As a result of acute kidney injury plus CKD (2) Acute kidney injury: PLAN: Acute kidney injury most likely due to renal hypoperfusion in the setting of significant third spacing with reduction in effective circulating blood volume. Also she might have cardiorenal syndrome. She is definitely fluid overloaded on the physical exam and I think we should give an attempt to diurese her HPI Consult Data Date of Consult: 12/04/24 HPI Narrative Reason for Consultation: Acute kidney injury on CKD 4 HPI Narrative: CASANDRA JONES, is a 79 F who presents to the hospital with a chief complaint of dysuria, recurrence of urinary tract infection. Patient has history of diabetes and has advanced diabetic nephropathy with creatinine around 2 range between 1.8 and 2.2. This time she comes over with soft blood pressures, and creatinine 3.7 that acutely increases to creatinine of 3.85 as of this morning. She does make some urine. She was on loop diuretic at home. Nevertheless she is quite fluid overloaded by exam. She has chronic hypoalbuminemia, albumin on admission is 2.9. 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 Obesity (BMI 30.0-34.9) Venous stasis ulcer Venous stasis dermatitis Dependent edema Left leg swelling Right leg swelling Leg edema, left Leg edema, right Urinary tract infection Insulin dependent diabetes mellitus UTI (urinary tract infection) Edema Presence of cardiac pacemaker Sick sinus syndrome Bilateral primary osteoarthritis of knee Rheumatoid arthritis History of renal insufficiency History of diabetes mellitus History of non-ST elevation myocardial infarction (NSTEMI) (03/21/21) Diabetes Cellulitis Anxiety Depression Hip fracture requiring operative repair Age related osteoporosis Osteoarthritis Cardiac murmur Type 2 diabetes mellitus without complications Carpal tunnel syndrome Arthritis Anemia Traumatic ulcer of left lower leg Fracture of femur, subcapital, right, closed Edema of both lower extremities Dermatitis Femoral neck fracture Rheumatoid arthritis Ulcer of right lower extremity with fat layer exposed Venous stasis dermatitis of both lower extremities Open wound of left lower extremity Home Medications ?Medication ?Instructions ?Recorded ?Last Taken ?Type ferrous sulfate 325 mg (65 mg 325 mg PO BID supplement 08/14/17 12/03/24 History iron) tablet furosemide 40 mg tablet 40 mg PO DAILY diuretic 04/0 03/2412/03/24 History flash glucose scanning reader #2 ea 12/17/21 Unknown R x (FreeStyle Antione 2 Stanley) insulin lispro protamine-lispro See Rx Instructions booth bcut DAILY 09/24/23 Unknown History 100 unit/mL (50-50) subcutaneous t2dm pen (Humalog Mix 50-50 KwikPen) blood sugar diagnostic (OneTouch #100 ea 10/24/23 Unkn own Rx Verio test strips) flash glucose sensor (FreeStyle #6 ea 10/24/23 Unknown Rx Antione 2 Sensor kit) pen needle, diabetic 32 gauge x #100 ea 10/24/23 Unkno wn Rx (BD Ultra-Fine Tracee Pen Needle) ergocalciferol (vitamin D2) 1,250 1,250 mcg PO QWEEK 0 11/18/23 11/29/24 History mcg (50,000 unit) capsule oxycodone 10 mg tablet 10 mg PO 4X/DAY chronic pain 3 08/20/24 12/03/24 Rx days #12 tabs ascorbic acid (vitamin C) 500 mg 500 mg PO BID 5 12/02/24 History tablet insulin glargine 100 unit/mL 3 unit subcut QPM 5 12/02/24 History subcutaneous solution zinc gluconate 50 mg tablet 50 mg PO DAILY 09/07/24 History gabapentin 300 mg capsule 300 mg PO BID neuropathic pa in 11/23/24 12/03/24 History (Neurontin) pramipexole 1 mg tablet 1 - 2 mg PO QHS 11/23/2408/28 History acetaminophen 500 mg tablet 1,000 mg PO 4X/DAY PRN fev er or 12/03/24 12/02/24 History (Acetaminophen Extra Strength) pain calcitriol 0.25 mcg capsule 0.25 mcg PO DAILY 12/03/24 12/02/24 History glucagon HCl 1 mg solution for 1 mg IM Q20M PRN hypogl ycemia 12/03/24 Unknown History injection (Glucagon (HCl) Emergency Kit) Allergy/AdvReac Type Severity Reaction Status Date / Time finerenone (From [facility]) AdvReac Severe Other Verified 12/03/24 09:44 Family History Mother Diabetes Father Diabetes Surgical History History of hysterectomy History of carpal tunnel release History of total right hip replacement History of total left hip replacement History of back surgery History of gastric bypass Social History household members: family number of children: 2 current occupational status: retired Smoking Status: Never smoker alcohol intake: never substance use type: does not use ROS Constitutional Constitutional: Reports malaise and weakness Eyes Eyes: Denies blindness, blurry vision, change in vision, discongugate gaze, double vision, dry eyes or loss of vision ENT HEENT: Denies dry mouth, epistaxis, hoarseness, loss taste/smell or nasal congestion Cardiovascular Cardiovascular: Reports leg edema Gastrointestinal Gastrointestinal: Reports anorexia Genitourinary Genitourinary: Reports difficulty urinating and dysuria Physical Exam Const alert Constitutional Narrative: Complaint on pain in the area of coccyx General Appearance: in distress Positive for mild and frail Orientation / Consciousness: oriented to person and oriented to place HEENT normocephalic Head and Scalp: atraumatic Neck no lymphadenopathy Resp no use of accessory muscles Auscultation: diminished lung sounds Cardio regular rate and no rub GI non-tender and non-distended Extremity Extremity Narrative: She has got significant dependent edema, mostly her back and buttocks Neuro Sensorium / Orientation: awake and alert Psych cooperative Medical Records Data Attestation: I reviewed the patient's medical records Lab / Micro Data Attestation: I reviewed the patient's lab results. 12/04/24 04:13 12/04/24 12:01 Labs: Laboratory Results - last 24 hr 12/03/24 10:10: Ur Random Sodium 23, Urine Creatinine 85.40 12/03/24 16:28: Sodium 125 L, Potassium 6.0 H*, Chloride 101, Carbon Dioxide 11.5 L, Anion Gap 13, BUN 68 H, Creatinine 3.34 H, Estim Creat Clear Calc 12.44 L, Est GFR (MDRD) Non-Af 14 L, BUN/Creatinine Ratio 20.3 H, Glucose 373 H, Calcium 7.6 12/03/24 22:17: POC Glucose 328 H 12/04/24 04:13: WBC 16.1 H, RBC 2.75 L, Hgb 8.1 L, Hct 25.3 L, MCV 92.0, MCH 29.5, MCHC 32.0, RDW Std Deviation 56.7 H, RDW Coeff of Fady 16.8 H, Plt Count 251, MPV 10.6, Sodium 128 L, Potassium 6.2 H*, Chloride 104, Carbon Dioxide 11.1 L, Anion Gap 13, BUN 81 H, Creatinine 3.79 H, Estim Creat Clear Calc 10.97 L, E st GFR (MDRD) Non-Af 12 L, BUN/Creatinine Ratio 21.4 H, Glucose 176 H, Calcium 7.6 12/04/24 08:27: POC Glucose 189 H 12/04/24 09:02: Sodium 130 L, Potassium 5.1, Chloride 103, Carbon Dioxide 10.7 L , Anion Gap 16 H, BUN 83 H, Creatinine 3.85 H, Estim Creat Clear Calc 10.79 L, E st GFR (MDRD) Non-Af 11 L, BUN/Creatinine Ratio 21.6 H, Glucose 222 H, Calcium 8.0 12/04/24 12:01: Sodium 128 L, Potassium 5.2 H, Chloride 105, Carbon Dioxide 11.7 L, Anion Gap 12, BUN 84 H, Creatinine 3.85 H, Estim Creat Clear Calc 10.79 L, E st GFR (MDRD) Non-Af 11 L, BUN/Creatinine Ratio 21.9 H, Glucose 293 H, Calcium 7.5 L 12/04/24 12:02: POC Glucose 300 H Micro: Microbiology 12/03/24 10:11 Urine, Clean Catch Urine Culture - Preliminary Gram negative aimee 12/03/24 10:35 Blood Culture (Wb) - Left Forearm Blood Culture - Preliminary Gram negative aimee 12/03/24 10:11 Blood Culture (Wb) - Right Wrist Blood Culture - Preliminary Gram negative aimee Imaging Radiology Impression Renal Ultrasound 12/04/24 07:52 IMPRESSION: Tiny nonobstructing left renal calculus. No hydronephrosis. Reading Location: [facility]
[2024-12-04 17:46] LABS: Bedside Glucose 265 mg/dL (74-106)
[2024-12-04] MEDS: 0.9% Saline Lock 10 ML Syringe IV ×3 (18:00→22:48)
[2024-12-04] MEDS: Furosemide 20 MG/2 ML VIAL IV ×2 (18:28→22:48)
[2024-12-04 21:56] LABS: Bedside Glucose 191 mg/dL (74-106)
--- NOTE | 2024-12-04 22:15 | PCM.HOSP.N ---
Hospitalist Note Patient lethargic throughout the day, worse now. Will obtain NH and ABG.
[2024-12-04 23:07] LABS: Ammonia 16.7 umol/L (11-51)
[2024-12-04 23:44] LABS: Base Excess -13 mmol/L (-2 to +2); Bicarbonate 13.5 mmol/L (22-26); Blood Gas Specimen Type ART; Mode Not entered; O2 Delivery Device Cannula; PO2 73 mmHG (75-100); SITE R Radial; SO2 93 % (95-99); Total Carbon Dioxide 14 mmol/L; pCO2 28.6 mmHg (35-45); pH 7.28 (7.35-7.45)
[2024-12-05 02:55] VITALS: BP 102/46; PULSE 76; RESP 18; TEMP 36.8; O2SAT 98
[2024-12-05] MEDS: Acetaminophen 325 MG Tablet 650 MG PO (04:26)
[2024-12-05 05:53] LABS: Hematocrit 24.7 % (37-47); Hemoglobin 8.1 g/dL (12.0-15.0); Mean Corp Hgb Conc 32.8 g/dL (32-36); Mean Corpuscular Hgb 28.9 pg (27.0-32.0); Mean Corpuscular Volume 88.2 fL (81-99); Mean Platelet Vol. 11.3 fl (6.2-12.0); Platelet Count 227 K/mm3 (150-450); RBC Distribution Width CV 16.8 % (11.6-14.6); RBC Distribution Width SD 54.4 fl (35.1-43.9)
[2024-12-05] MEDS: Furosemide 20 MG/2 ML VIAL IV ×3 (06:06→21:18)
[2024-12-05] MEDS: 0.9% Saline Lock 10 ML Syringe IV (06:06)
[2024-12-05 06:18] LABS: Anion Gap 15 (5-15); BUN 86 mg/dL (4-19); BUN/Creat Ratio 22.5 RATIO (10-20); Calcium,Total 7.3 mg/dL (7.6-11.0); Carbon Dioxide 13.5 mmol/L (21.0-32.0); Chloride 99 mmol/L (98-108); Creatinine, Serum 3.82 mg/dL (0.70-1.20); EST Glomerular Filtration Rate 12 (>60); Estimated Creatinine Clearance 10.88 ml/min (50-250); Glucose 266 mg/dL (70-99); Potassium 4.8 mmol/L (3.3-5.1); Sodium Level 127 mmol/L (133-145)
[2024-12-05 06:26] LABS: Vancomycin, Random Level 13.7 ug/mL (0.0-15.0)
[2024-12-05 06:39] LABS: Bedside Glucose 214 mg/dL (74-106)
[2024-12-05 07:38] VITALS: O2SAT 99
--- NOTE | 2024-12-05 08:02 | ECHOD_ITS ---
Reason For Study Reason For Study: CHF Procedure This was a 2D Doppler, Color Flow transthoracic echocardiogram. Exam performed portable in patient room. Left Ventricle Normal LV size. Mild concentric left ventricular hypertrophy. Mild to moderate generalized hypokinesis. Estimated LVEF 40 to 45%. Stage I diastolic dysfunction. Right Ventricle ICD or pacer leads identified within the right ventricle. Atria The left atrium is mildly enlarged. Normal right atrium. Mitral Valve Mild-Moderate (1-2+) mitral valve insufficiency. Tricuspid Valve Moderate (2+) tricuspid valve insufficiency. Right ventricular systolic pressure estimated to be 44 mmHg. Aortic Valve Trisinus/trileaflet aortic valve. Trivial aortic valve insufficiency. Pulmonic Valve The pulmonic valve is not well visualized. Great Vessels Normal sized aortic root. Pericardium/Pleural No pericardial effusion. MMode/2D Measurements & Calculations LVIDd: 4.7 cm IVSd: 1.2 cm Ao root diam: 3.0 cm LVIDs: 3.5 cm LVPWd: 1.2 cm RVDd: 3.9 cm FS: 24.9 % LAV(MOD-bp): 55.1 ml LVAd ap4: 32.0 cm2 LVAd ap2: 32.7 cm2 LAV(MOD-bp) Indexed: 32.7 ml/m2 LVLd ap4: 8.2 cm LVLd ap2: 8.2 cm LAV(MOD-sp2): 50.3 ml EDV(MOD-sp4): 101.8 ml EDV(MOD-sp2): 109.3 ml LAV(MOD-sp4): 46.5 ml EDV(sp4-el): 105.8 ml EDV(sp2-el): 111.3 ml LVAs ap4: 23.8 cm2 LVAs ap2: 25.6 cm2 LVLs ap4: 7.7 cm LVLs ap2: 8.2 cm ESV(MOD-sp4): 59.1 ml ESV(MOD-sp2): 65.0 ml ESV(sp4-el): 62.7 ml ESV(sp2-el): 67.9 ml EF(MOD-sp4): 42.0 % EF(MOD-sp2): 40.5 % EF(sp4-el): 40.7 % SV(MOD-sp4): 42.8 ml SV(MOD-sp2): 44.3 ml SV(sp4-el): 43.1 ml SI(MOD-sp4): 25.4 ml/m2 SI(MOD-sp2): 26.3 ml/m2 LA A4 area: 18.6 cm2 LA dimension(2D): 3.9 cm RA A4 area: 17.4 cm2 TAPSE: 1.7 cm Time Measurements MV dec time: 0.28 sec Doppler Measurements & Calculations MV E max eriberto: 90.5 cm/sec Lat Peak E' Eriberto: 7.0 cm/sec Med Peak E' Eriberto: 5.6 cm/sec MV A max eriberto: 116.4 cm/sec E/E' lat: 12.8 E/E' med: 16.0 MV E/A: 0.78 Ao V2 max: 142.1 cm/sec LV V1 max: 95.6 cm/sec PA V2 max: 79.0 cm/sec Ao max P.1 mmHg LV V1 max P.7 mmHg TR max eriberto: 311.5 cm/sec TR max P.8 mmHg ECHO/Echo Complete Interpretation Summary Mild concentric left ventricular hypertrophy. Mild to moderate generalized hypokinesis. Estimated LVEF 40-45%. Stage I diasto lic dysfunction. The left atrium is mildly enlarged. Mild-Moderate (1-2+) mitral valve insufficiency. Moderate (2+) tricuspid valve insufficiency. Right ventricular systolic pressure estimated to be 44 mmHg. Ordering Physician: Ashu Sun Referring Physician: PREETI AGUDELO Performed By: Sudha Willingham RDCS
[2024-12-05 08:09] VITALS: BP 108/51; PULSE 73; RESP 24; TEMP 36.5; O2SAT 99
[2024-12-05] MEDS: Vancomycin IV 1,000 MG/200 ML BAG 200 MG IV (08:28)
[2024-12-05 08:33] LABS: Pro- Brain NATRIURETIC PEPTIDE 66022 pg/mL (<=1800)
--- NOTE | 2024-12-05 09:35 | PCM.PN.HOSP ---
Reason for Visit Reason for Visit: Diagnoses Other Escherichia coli [E. coli] as the cause of diseases classified elsewhere (12/03/24) Hyperkalemia (12/03/24) Acute kidney failure, unspecified (12/03/24) Urinary tract infection, site not specified (12/03/24) Extended spectrum beta lactamase (ESBL) resistance (12/03/24) Subjective Subjective Saw patient at bedside this morning. Patient continues to appear fatigued and mildly confused this morning, similar to yesterday. She reports mild neck pain and low back pain today. She denies any fevers or chills. No other new concerns this morning. Objective Data Objective Data Vital Signs: Vital Signs Temp Pulse Resp BP Pulse Ox O2 Del Method O2 Flow Rate 97.7 F L 73 24 H 108/51 L 99 Nasal Cannula 2 12/05/24 08:09 12/05/24 08:09 12/05/24 08:09 12/05/24 08:09 12/05/24 08:09 12/05/24 08:09 12/05/24 08:09 Oxygen Flow Rate (L/min) 2 Oxygen Delivery Method Nasal Cannula Weight: 73.7 kg Body Mass Index (BMI) 32.8 Intake & Output: Intake and Output for Last 24 Hours 12/03/24 12/04/24 12/05/24 23:59 23:59 23:59 Intake Total 3635 / 3635 1886.25 / 1886.25 1100 / 1100 Output Total 1050 / 1250 400 / 400 Balance 3635 / 3635 836.25 / 636.25 700 / 700 Lab / Micro Data 12/05/24 05:16 12/05/24 05:16 Labs: Laboratory Results - last 24 hr 12/03/24 10:10: Ur Random Sodium 23, Urine Creatinine 85.40 12/04/24 09:02: Sodium 130 L, Potassium 5.1, Chloride 103, Carbon Dioxide 10.7 L, Anion Gap 16 H, BUN 83 H, Creatinine 3.85 H, Estim Creat Clear Calc 10.79 L, Est GFR (MDRD) Non-Af 11 L, BUN/Creatinine Ratio 21.6 H, Glucose 222 H, Calcium 8.0 12/04/24 12:01: Sodium 128 L, Potassium 5.2 H, Chloride 105, Carbon Dioxide 11.7 L, Anion Gap 12, BUN 84 H, Creatinine 3.85 H, Estim Creat Clear Calc 10.79 L, Est GFR (MDRD) Non-Af 11 L, BUN/Creatinine Ratio 21.9 H, Glucose 293 H, Calcium 7.5 L 12/04/24 12:02: POC Glucose 300 H 12/04/24 17:24: POC Glucose 265 H 12/04/24 20:59: POC Glucose 191 H 12/04/24 22:32: Ammonia 16.7 12/05/24 05:16: WBC 13.0 H, RBC 2.80 L, Hgb 8.1 L, Hct 24.7 L, MCV 88.2, MCH 28.9, MCHC 32.8, RDW Std Deviation 54.4 H, RDW Coeff of Fady 16.8 H, Plt Count 227, MPV 11.3, Sodium 127 L, Potassium 4.8, Chloride 99, Carbon Dioxide 13.5 L, Anion Gap 15, BUN 86 H, Creatinine 3.82 H, Estim Creat Clear Calc 10.88 L, Est GFR (MDRD) Non-Af 12 L, BUN/Creatinine Ratio 22.5 H, Glucose 266 H, Calcium 7.3 L, [place] [address] H, Random Vancomycin 13.7 12/05/24 06:09: POC Glucose 214 H Micro: Microbiology 12/03/24 10:11 Urine, Clean Catch Urine Culture - Final ESBL Escherichia coli 12/03/24 10:11 Blood Culture (Wb) - Right Wrist Blood Culture - Final ESBL Escherichia coli 12/03/24 10:35 Blood Culture (Wb) - Left Forearm Blood Culture - Preliminary Gram negative aimee ABG Data ABG results: ABG 12/04/24 23:40 Specimen Type ART Sample Site R Radial pH 7.28 L Bicarbonate Actual 13.5 L Total CO2 14 Base Excess -13 L O2 Saturation 93 L O2 % 2.0 ABG pCO2 28.6 L ABG pO2 73 L Bar Test N/A O2 Delivery Device Cannula Vent Mode Not entered Radiography Diagnostic Testing: Radiology Impression Renal Ultrasound 12/04/24 07:52 IMPRESSION: Tiny nonobstructing left renal calculus. No hydronephrosis. Reading Location: [facility] Physical Exam Const alert, oriented x3 and no apparent distress Constitutional Narrative: Elderly female, class I obesity, fatigued and chronically ill appearing, alert but somewhat confused and only answering some questions with short appropriate responses, otherwise laying back comfortably in bed and in no acute distress. General Appearance: cooperative and comfortable HEENT normocephalic, head/scalp atraumatic, hearing grossly normal bilaterally, nasal mucous membranes and turbinates normal and moist oral mucous membranes Eyes PERRL, EOMs intact bilaterally and conjunctivae normal Neck full ROM Chest inspection of chest normal Resp normal respiratory effort, normal air movement, no use of accessory muscles and clear to auscultation bilaterally Cardio regular rate, regular rhythm, no murmurs and peripheral pulses 2+ throughout GI normal to inspection, nondistended, normoactive bowel sounds, soft to palpation, non-tender and non-distended Back/Spine normal ROM Extremity Extremity Narrative: +1-2 lower extremity pitting edema noted. Skin no rashes or lesions noted Assessment & Plan Assessment/Plan (1) UTI due to extended-spectrum beta lactamase (ESBL) producing Escherichia coli: (2) Acute kidney injury: (3) Acute hyperkalemia: PLAN: Plan Patient is a 79-year-old female who presented to [facility] ED on 12/03/2024 with dysuria and urine culture positive for ESBL E. coli. 1. Sepsis secondary to ESBL E. coli UTI with gram-negative bacteremia ? ID consulted. Urine culture from 12/01 growing greater than 100,000 ESBL E. coli sensitive to Zosyn. UA on admit here with 500 leukocyte esterase, negative nitrates, 25-50 WBCs, rare bacteria. Met sepsis criteria on admission with leukocytosis, fevers, NATI and presumed urinary source. Blood cultures on 12/03 preliminarily positive for gram-negative rods. Continue treatment with IV Zosyn for now. Continue to monitor daily CBC. 2. Concern for right lower extremity infection in setting of chronic venous stasis changes with right heel pressure wound ? Follows with Dr. Forbes, last office visit on 11/30. Right heel wound was debrided down to level of subcu tissue at that time with no infectious signs noted. However, patient was also found to have ingrowing right medial hallux toenail and on I&D, scant purulent drainage was noted. Unfortunately no wound cultures were collected at that time. Blood cultures preliminarily positive for gram-negative rods as noted above. Suspect UTI is primary source of infection but will empirically treat with continue to vancomycin for now. Wound care following. 3. NATI on CKD stage 4 with hyperkalemia and metabolic acidosis ? Nephrology following. Creatinine 3.36, BUN 73, potassium 5.8, bicarb 12 on admit. Baseline creatinine 1.7-1.9. No EKG changes noted. Initially suspected to be prerenal NATI in setting of infection. Given 2 L of IV fluids on admit without improvement and then started on IV bicarbonate drip on 12/04. Per nephrology, noted that patient appears volume overloaded and higher suspicion is for cardiorenal syndrome. Currently treating with IV Lasix 20 mg every 8 hours. Monitor daily BMP and urine output. Continue home calcitriol. Appreciate further nephrology recommendations. 4. Acute metabolic encephalopathy ? Patient noted to be more lethargic and somewhat confused since 12/04. ABG with pH 7.28, pCO2 28 so no concern for hypercapnia. BUN has been worsening with most recent BUN 86 on 12/05. Patient has also been on home oxycodone 10 mg scheduled every 6 hours and given her NATI will have decreased clearance of this; had doses held on 12/04 and will decrease to 5 mg every 6 hours for now. Continue to monitor closely. 5. Acute on chronic debility ? PT/OT/case management following. Recently required SNF placement after hospitalization in August. Most recently has been following with home health care. Poor therapy scores at this point, will need to either SNF or home with home health care on discharge. 6. Type 2 diabetes mellitus with neuropathy ? Follows with Dr. Collier. Most recent A1c 6.3% but Dr. Valencia noted this was underestimated in setting of anemia, is likely closer to the 7-8 range. Home regimen of Lantus 3 units at night and Humalog 50-50 mix. Blood sugars have been elevated to the mid to high 200s since admission. Started Lantus 15 units daily on 12/05, will continue high-dose sliding scale insulin with meals for now. Adjust as needed. Continue home gabapentin. 7. Restless leg syndrome ? Continue home pramipexole. 8. Chronic pain syndrome ? Continue reduced dose of oxycodone and gabapentin. 9. History of sick sinus syndrome s/p pacemaker placement ? Stable in paced rhythm on admit. 10. Chronic iron deficiency anemia and anemia of kidney disease ? Hemoglobin stable at baseline of 8-9 on admission. Continue home iron supplement. DVT prophylaxis: Heparin subcu CODE STATUS: DNR CCA, DNI Expected disposition: SNF versus home with HHC, TBD Total clinical time spent by myself addressing the patient's medical issues, reviewing all the data, and collaborating with patient's care team: 35 minutes. Charges/Coding Visit Charges Inpatient E&M: 33843 Subs Hosp L2
[2024-12-05] MEDS: Piperacil/Tazobactam 3.375 GM Q12 PREMIX IV (10:44)
[2024-12-05] MEDS: Insulin Glargine-YFGN 100 UNIT/ML Pen 15 UNIT SC (10:45)
[2024-12-05] MEDS: oxyCODONE 5 MG Tablet PO ×3 (10:50→21:22)
[2024-12-05] MEDS: Heparin Injection (Vial) 5,000 UNIT/ML VIAL 5000 UNIT SC ×2 (10:50→21:17)
[2024-12-05] MEDS: Gabapentin 300 MG Capsule PO ×2 (10:50→21:22)
[2024-12-05] MEDS: Ascorbic Acid 500 MG Tablet PO ×2 (10:51→21:22)
[2024-12-05] MEDS: Calcitriol 0.25 MCG Capsule PO (10:51)
[2024-12-05] MEDS: Insulin Lispro 100 UNIT/ML INSULN.PEN SC ×3 (12:06→21:17)
[2024-12-05] MEDS: Ferrous Sulfate 325 MG Tablet PO (12:07)
[2024-12-05 12:27] LABS: Bedside Glucose 275 mg/dL (74-106)
[2024-12-05 14:41] VITALS: BP 112/44; PULSE 80; RESP 26; TEMP 37.1; O2SAT 97
[2024-12-05 17:15] LABS: Bedside Glucose 235 mg/dL (74-106)
[2024-12-05 18:02] VITALS: BP 112/44; PULSE 85; RESP 23; TEMP 36.7; O2SAT 98
--- NOTE | 2024-12-05 18:35 | PN.RENAL_ITS ---
Subjective Subjective no new events. urine output is ok. cr about the same. edematous. Objective Data Objective Data Vital Signs: Vital Signs Temp Pulse Resp BP Pulse Ox O2 Del Method O2 Flow Rate 98.1 F 85 23 H 112/44 L 98 Nasal Cannula 2 12/05/24 18:02 12/05/24 18:02 12/05/24 18:02 12/05/24 18:02 12/05/24 18:02 12/05/24 18:02 12/05/24 18:02 Oxygen Flow Rate (L/min) 2 Oxygen Delivery Method Nasal Cannula Weight: 73.7 kg Body Mass Index (BMI) 32.8 Intake & Output: Intake and Output for Last 24 Hours 12/03/24 12/04/24 12/05/24 23:59 23:59 23:59 Intake Total 3635 / 3635 1886.25 / 1886.25 1650 / 1650 Output Total 1050 / 1250 850 / 850 Balance 3635 / 3635 836.25 / 636.25 800 / 800 Lab / Micro Data 12/05/24 05:16 12/05/24 05:16 Labs: Laboratory Results - last 24 hr 12/04/24 20:59: POC Glucose 191 H 12/04/24 22:32: Ammonia 16.7 12/05/24 05:16: WBC 13.0 H, RBC 2.80 L, Hgb 8.1 L, Hct 24.7 L, MCV 88.2, MCH 28.9, MCHC 32.8, RDW Std Deviation 54.4 H, RDW Coeff of Fady 16.8 H, Plt Count 227, MPV 11.3, Sodium 127 L, Potassium 4.8, Chloride 99, Carbon Dioxide 13.5 L, Anion Gap 15, BUN 86 H, Creatinine 3.82 H, Estim Creat Clear Calc 10.88 L, Est GFR (MDRD) Non-Af 12 L, BUN/Creatinine Ratio 22.5 H, Glucose 266 H, Calcium 7.3 L, [place] [address] H, Random Vancomycin 13.7 12/05/24 06:09: POC Glucose 214 H 12/05/24 12:04: POC Glucose 275 H 12/05/24 16:47: POC Glucose 235 H Micro: Microbiology 12/03/24 10:35 Blood Culture (Wb) - Left Forearm Blood Culture - 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 12/03/24 10:11 Urine, Clean Catch Urine Culture - Final ESBL Escherichia coli 12/03/24 10:11 Blood Culture (Wb) - Right Wrist Blood Culture - Final ESBL Escherichia coli ABG Data ABG results: ABG 12/04/24 23:40 Specimen Type ART Sample Site R Radial pH 7.28 L Bicarbonate Actual 13.5 L Total CO2 14 Base Excess -13 L O2 Saturation 93 L O2 % 2.0 ABG pCO2 28.6 L ABG pO2 73 L Bar Test N/A O2 Delivery Device Cannula Vent Mode Not entered Physical Exam Const alert Constitutional Narrative: Complaint on pain in the area of coccyx General Appearance: in distress Positive for mild and frail Orientation / Consciousness: oriented to person and oriented to place HEENT normocephalic Neck no lymphadenopathy Resp no use of accessory muscles Auscultation: diminished lung sounds Cardio regular rate and no rub GI non-tender and non-distended Extremity Extremity Narrative: She has got significant dependent edema, mostly her back and buttocks Neuro Sensorium / Orientation: awake and alert Psych cooperative Assessment & Plan Assessment/Plan (1) Acute hyperkalemia: PLAN: As a result of acute kidney injury plus CKD (2) Acute kidney injury: PLAN: CKD 3B. baseline cr around 1.7 or so. currently cr around 3.7 or so UA shows some protein and cells. previous urine PCR 1.7 gm Renal US without hydronephrosis. edematous. BNP 84511. last echo with EF 55. CXR was wet currently on IV lasix reviewed prior records. couple years ago there was a pANCA borderline positive. will repeat
[2024-12-05] MEDS: Piperacil/Tazobactam 3.375 GM in 0.9% Normal Saline (50mL MB+) 50 ML IV (21:18)
[2024-12-05] MEDS: Pramipexole Di-HCl 1 MG Tablet 2 MG PO (21:22)
[2024-12-05 21:30] VITALS: BP 116/58; PULSE 68; RESP 118; TEMP 36.6; O2SAT 99
[2024-12-05 22:02] LABS: Bedside Glucose 195 mg/dL (74-106)
[2024-12-06] VITALS (10 sets, daily range): BP systolic 92–104; BP diastolic 41–50; PULSE 62–67; RESP 18–22; TEMP 36.1–36.6; O2SAT 94–99
[2024-12-06] MEDS: Furosemide 20 MG/2 ML VIAL IV ×3 (05:45→22:20)
[2024-12-06] MEDS: 0.9% Saline Lock 10 ML Syringe IV (05:45)
[2024-12-06 05:59] LABS: Hematocrit 24.2 % (37-47); Hemoglobin 8.1 g/dL (12.0-15.0); Mean Corp Hgb Conc 33.5 g/dL (32-36); Mean Corpuscular Hgb 29.5 pg (27.0-32.0); Mean Platelet Vol. 10.9 fl (6.2-12.0); Platelet Count 184 K/mm3 (150-450); RBC Distribution Width CV 16.4 % (11.6-14.6); RBC Distribution Width SD 52.6 fl (35.1-43.9); Red Blood Count 2.75 M/mm3 (4.2-5.4); White Blood Count 13.7 K/mm3 (4.4-11.0)
[2024-12-06 06:19] LABS: Bedside Glucose 158 mg/dL (74-106)
[2024-12-06 06:57] LABS: Vancomycin, Random Level 19.3 ug/mL (0.0-15.0)
[2024-12-06 06:59] LABS: Anion Gap 15 (5-15); BUN 91 mg/dL (4-19); BUN/Creat Ratio 22.7 RATIO (10-20); Calcium,Total 7.3 mg/dL (7.6-11.0); Carbon Dioxide 13.7 mmol/L (21.0-32.0); Chloride 99 mmol/L (98-108); Creatinine, Serum 3.98 mg/dL (0.70-1.20); EST Glomerular Filtration Rate 11 (>60); Estimated Creatinine Clearance 10.44 ml/min (50-250); Glucose 156 mg/dL (70-99); Potassium 4.3 mmol/L (3.3-5.1); Sodium Level 128 mmol/L (133-145)
--- NOTE | 2024-12-06 07:21 | PHA.PHARE_ITS ---
Consult Antibiotic Management Pharmacy has been consulted to manage selected antibiotic: Vancomycin Type of Intervention Type of Consult: Follow-up Suspected Infection Suspected Infection: Other (UTI) Prior Doses of Antibiotics Prior Doses of Antibiotics Received/Current Regimen: Vancomycin 1000 mg IV x 1 given 12/05/24 @ 0848 Labs Labs: Sodium 128 mmol/L (133-145) L 12/06/24 05:46 Potassium 4.3 mmol/L (3.3-5.1) 12/06/24 05:46 Chloride 99 mmol/L (98-108) 12/06/24 05:46 Carbon Dioxide 13.7 mmol/L (21.0-32.0) L 12/06/24 05:46 Anion Gap 15 (5-15) 12/06/24 05:46 BUN 91 mg/dL (4-19) H 12/06/24 05:46 Creatinine 3.98 mg/dL (0.70-1.20) H 12/06/24 05:46 Est GFR (MDRD) Non-Af 11 (>60) L 12/06/24 05:46 BUN/Creatinine Ratio 22.7 RATIO (10-20) H 12/06/24 05:46 Glucose 156 mg/dL (70-99) H 12/06/24 05:46 Random Vancomycin 19.3 ug/mL (0.0-15.0) H 12/06/24 05:46 Microbiology Microbiology: Microbiology 12/03/24 10:35 Blood Culture (Wb) - Left Forearm Blood Culture - 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 Pharmacy Service will continue to monitor and adjust dosing as required. Follow-Up Labs Follow-Up Labs: Trough: Vancomycin Date/Time Labs Ordered Labs to be done on [date and time ordered]: 12/07/24 @ 0600
--- NOTE | 2024-12-06 09:22 | PCM.PN.HOSP ---
Reason for Visit Reason for Visit: Diagnoses Other Escherichia coli [E. coli] as the cause of diseases classified elsewhere (12/03/24) Hyperkalemia (12/03/24) Acute kidney failure, unspecified (12/03/24) Urinary tract infection, site not specified (12/03/24) Extended spectrum beta lactamase (ESBL) resistance (12/03/24) Objective Data Objective Data Vital Signs: Vital Signs Temp Pulse Resp BP Pulse Ox O2 Del Method O2 Flow Rate 97.8 F 62 22 H 101/48 L 98 Nasal Cannula 2 12/06/24 08:30 12/06/24 08:30 12/06/24 08:30 12/06/24 08:30 12/06/24 08:30 12/06/24 08:30 12/06/24 08:30 Oxygen Flow Rate (L/min) 2 Oxygen Delivery Method Nasal Cannula Weight: 162 lb 7.691 oz Body Mass Index (BMI) 32.8 Intake & Output: Intake and Output for Last 24 Hours 12/04/24 12/05/24 12/06/24 23:59 23:59 23:59 Intake Total 1886.25 / 1886.25 1650 / 1650 144.79 / 144.79 Output Total 1050 / 1250 850 / 850 200 / 200 Balance 836.25 / 636.25 800 / 800 -55.21 / -55.21 Lab / Micro Data 12/06/24 05:46 12/06/24 05:46 Labs: Laboratory Results - last 24 hr 12/05/24 12:04: POC Glucose 275 H 12/05/24 16:47: POC Glucose 235 H 12/05/24 21:14: POC Glucose 195 H 12/06/24 05:46: WBC 13.7 H, RBC 2.75 L, Hgb 8.1 L, Hct 24.2 L, MCV 88.0, MCH 29.5, MCHC 33.5, RDW Std Deviation 52.6 H, RDW Coeff of Fady 16.4 H, Plt Count 184, MPV 10.9, Sodium 128 L, Potassium 4.3, Chloride 99, Carbon Dioxide 13.7 L, Anion Gap 15, BUN 91 H, Creatinine 3.98 H, Estim Creat Clear Calc 10.44 L, Est GFR (MDRD) Non-Af 11 L, BUN/Creatinine Ratio 22.7 H, Glucose 156 H, Calcium 7.3 L, Random Vancomycin 19.3 H 12/06/24 05:56: POC Glucose 158 H Micro: Microbiology 12/03/24 10:35 Blood Culture (Wb) - Left Forearm Blood Culture - 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 She is not moving out of the bed and is scared because it exacerbates her pain. Complain of severe tailbone pain. No lower extremity weakness and painful even to extend her knees. Denies burning pain before coming to the hospital. Not on home oxygen. No crepitations. Physical exam General: Alert awake oriented x 3. HEENT: Atraumatic, PERRLA, EOMI, Normocephalic Oral: Oral mucosa dry. No Gingival or Mucosal Lesions/ Ulcerations Neck: Supple, No JVD, Negative Carotid Bruits Chest wall/Lungs: Air entry diminished in all lung bills. On 2 L of oxygen. Cardiovascular: Paced rhythm, Normal S1, Normal S2, No M/G/R Abdomen: Bowel Sounds Present, Soft, Non Tender, Non-Distended : Son catheter No renal angle tenderness. No suprapubic tenderness. Extremities: Bilateral nonpitting edema, Capillary Refill Less than 3 Seconds Skin: Right heel is padded. Musculoskeletal: No Tenderness to Palpation of Joints or Extremities. ROM restricted Neurological: Cranial nerves II-XII grossly intact, DTR 2+/4. Muscle strength could not be examined. Psych/Mental Status: Flat affect. Assessment & Plan Assessment/Plan (1) UTI due to extended-spectrum beta lactamase (ESBL) producing Escherichia coli: (2) Acute kidney injury: (3) Acute hyperkalemia: PLAN: Plan Patient is a 79-year-old female who presented to [facility] ED on 12/03/2024 with dysuria and urine culture positive for ESBL E. coli. 1. Sepsis secondary to ESBL E. coli UTI with gram-negative bacteremia ? ID consulted. Urine culture from 12/01 growing greater than 100,000 ESBL E. coli sensitive to Zosyn. UA on admit here with 500 leukocyte esterase, negative nitrates, 25-50 WBCs, rare bacteria. Met sepsis criteria on admission with leukocytosis, fevers, NATI and presumed urinary source. Blood cultures on 12/03 preliminarily positive for gram-negative rods. Initially started on IV vancomycin and Zosyn. 12/06: Patient was seen by ID. ESBL E. coli bacteremia. Zosyn was changed to meropenem. No history of MRSA therefore vancomycin discontinued. Wounds improving. Sepsis is resolved. 2. Concern for right lower extremity infection in setting of chronic venous stasis changes with right heel pressure wound ? Follows with Dr. Forbes, last office visit on 11/30. Right heel wound was debrided down to level of subcu tissue at that time with no infectious signs noted. However, patient was also found to have ingrowing right medial hallux toenail and on I&D, scant purulent drainage was noted. Previous wound culture on 08/18/2024 grew MSSA. 3. NATI on CKD stage 4 with hyperkalemia and metabolic acidosis ? Nephrology following. Creatinine 3.36, BUN 73, potassium 5.8, bicarb 12 on admit. Baseline creatinine 1.7-1.9. No EKG changes noted. Initially suspected to be prerenal NATI in setting of infection. Given 2 L of IV fluids on admit without improvement and then started on IV bicarbonate drip on 12/04. 12/06: Patient appears volume overloaded. On Lasix 20 mg IV twice daily but blood pressure is low. Higher suspicion of cardiorenal syndrome. Continue home calcitriol. Appreciate further nephrology recommendations. Kidney function not improving. Urine output also low, 200 mL since 12 midnight. Patient is low BP. Midodrine 10 mg 3 times daily added 4. Acute metabolic encephalopathy on dementia, multiple sedative and pain medications ? Patient noted to be more lethargic and somewhat confused since 12/04. ABG with pH 7.28, pCO2 28 so no concern for hypercapnia. BUN has been worsening with most recent BUN 86 on 12/05. Patient has also been on home oxycodone 10 mg scheduled every 6 hours and given her NATI will have decreased clearance of this; had doses held on 12/04 and will decrease to 5 mg every 6 hours for now. Continue to monitor closely. 12/06: Patient was awake but will deep sleep in afternoon. Probably due to oxycodone 5 mg Q6 hourly. Oxycodone dose decreased to 2.5 mg every 6 probably 5. Acute on chronic debility ? PT/OT/case management following. Recently required SNF placement after hospitalization in August. Most recently has been following with home health care. Poor therapy scores at this point, will need to either SNF or home with home health care on discharge. 6. Type 2 diabetes mellitus with neuropathy ? Follows with Dr. Collier. Most recent A1c 6.3% but Dr. Valencia noted this was underestimated in setting of anemia, is likely closer to the 7-8 range. Home regimen of Lantus 3 units at night and Humalog 50-50 mix. Blood sugars have been elevated to the mid to high 200s since admission. Started Lantus 15 units daily on 12/05, will continue high-dose sliding scale insulin with meals for now. Adjust as needed. Continue home gabapentin. 7. Restless leg syndrome ? Continue home pramipexole. 8. Chronic pain syndrome ? Continue reduced dose of oxycodone and gabapentin. 9. History of sick sinus syndrome s/p pacemaker placement ? Stable in paced rhythm on admit. 10. Chronic iron deficiency anemia and anemia of kidney disease ? Hemoglobin stable at baseline of 8-9 on admission. Continue home iron supplement. DVT prophylaxis: Heparin subcu CODE STATUS: DNR CCA, DNI In view of multiple comorbidities and patient low functional status including NATI and CKD stage IV, drowsiness/lethargy, low BP, acute on chronic debility and ESBL E. coli bacteremia, I talked to the patient's daughter and updated her clinical status. I suggested hospice/Perative care and she agreed. Currently DNR CCA with no intubation. I talked to the patient's Charges/Coding Addendum Addendum: Total time of the visit including total time spent in counseling or coordination of care, (more than 50% of the total time, spent in obtaining medical information from nurses and other ancillary care providers ,explaining to the patient about labs, imaging, diagnosis and management of active complex medical conditions), discussion with the sole layer, clinical med given to daughter and discussion about hospice/palliative care, review of labs and imaging is 35 minutes. Visit Charges Inpatient E&M: 08633 Subs Hosp L3
[2024-12-06] MEDS: Piperacil/Tazobactam 3.375 GM in 0.9% Normal Saline (50mL MB+) 50 ML IV (09:53)
[2024-12-06] MEDS: Vancomycin IV 1,000 MG/200 ML BAG 200 MG IV (09:53)
[2024-12-06] MEDS: Juven (unflavored) Packet 1 PACKET PO (09:54)
[2024-12-06] MEDS: Heparin Injection (Vial) 5,000 UNIT/ML VIAL 5000 UNIT SC ×2 (09:55→22:20)
[2024-12-06] MEDS: Insulin Glargine-YFGN 100 UNIT/ML Pen 15 UNIT SC (09:55)
[2024-12-06] MEDS: Ascorbic Acid 500 MG Tablet PO ×2 (09:56→22:20)
[2024-12-06] MEDS: Calcitriol 0.25 MCG Capsule PO (09:56)
[2024-12-06] MEDS: Ferrous Sulfate 325 MG Tablet PO (09:56)
[2024-12-06] MEDS: Gabapentin 300 MG Capsule PO ×2 (10:02→22:20)
[2024-12-06] MEDS: oxyCODONE 5 MG Tablet PO ×2 (10:02→13:10)
--- NOTE | 2024-12-06 10:54 | PN.RENAL_ITS ---
Subjective Subjective Resting in bed. No overnight events. Family friend at bedside. Patient reports she was able to eat breakfast. Denies any shortness of breath. Objective Data Objective Data Vital Signs: Vital Signs Temp Pulse Resp BP Pulse Ox O2 Del Method O2 Flow Rate 97.8 F 62 22 H 101/48 L 98 Nasal Cannula 2 12/06/24 08:30 12/06/24 08:30 12/06/24 08:30 12/06/24 08:30 12/06/24 08:30 12/06/24 10:00 12/06/24 10:00 Oxygen Flow Rate (L/min) 2 Oxygen Delivery Method Nasal Cannula Weight: 73.7 kg Body Mass Index (BMI) 32.8 Intake & Output: Intake and Output for Last 24 Hours 12/04/24 12/05/24 12/06/24 23:59 23:59 23:59 Intake Total 1886.25 / 1886.25 1650 / 1650 144.79 / 144.79 Output Total 1050 / 1250 850 / 850 200 / 200 Balance 836.25 / 636.25 800 / 800 -55.21 / -55.21 Lab / Micro Data 12/06/24 05:46 12/06/24 05:46 Labs: Laboratory Results - last 24 hr 12/05/24 12:04: POC Glucose 275 H 12/05/24 16:47: POC Glucose 235 H 12/05/24 21:14: POC Glucose 195 H 12/06/24 05:46: WBC 13.7 H, RBC 2.75 L, Hgb 8.1 L, Hct 24.2 L, MCV 88.0, MCH 29.5, MCHC 33.5, RDW Std Deviation 52.6 H, RDW Coeff of Fady 16.4 H, Plt Count 184, MPV 10.9, Sodium 128 L, Potassium 4.3, Chloride 99, Carbon Dioxide 13.7 L, Anion Gap 15, BUN 91 H, Creatinine 3.98 H, Estim Creat Clear Calc 10.44 L, Est GFR (MDRD) Non-Af 11 L, BUN/Creatinine Ratio 22.7 H, Glucose 156 H, Calcium 7.3 L, Random Vancomycin 19.3 H 12/06/24 05:56: POC Glucose 158 H Micro: Microbiology 12/03/24 10:35 Blood Culture (Wb) - Left Forearm Blood Culture - Final GNR lactose research specialist 12/03/24 10:11 Urine, Clean Catch Urine Culture - Final ESBL Escherichia coli 12/03/24 10:11 Blood Culture (Wb) - Right Wrist Blood Culture - Final ESBL Escherichia coli Physical Exam Narrative Alert and oriented x 3, no apparent distress S1, S2, RRR Diminished breath sounds. No rales or rhonchi. 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 Baseline cr around 1.7 or so. Previous urine PCR 1.7 g. Renal ultrasound without hydronephrosis. Initially on admission patient treated with IV fluids then patient became edematous. BNP 43145, on O2 nasal cannula (does not wear oxygen at home). Last echo with EF 55. CXR was wet. IV fluids stopped now on Lasix. NATI possibly from cardiorenal syndrome. Echo today pending. Currently on IV Lasix 20 mg IV every 8 hours. Current weight 73.7 kg. Last weight in office October 2023 76 kg. Serum creatinine 3.3 on admission and today creatinine 3.98 mg/dL. Potassium and bicarb acceptable. Patient has urine output (has anderson). No acute indication for RETAIL SOLAR ADVISOR. Blood pressures remain low, echo pending today. Reviewed prior records, couple years ago there was a pANCA borderline positive, repeat pANCA/cANCA pending. - Ecoli UTI -Acute hyperkalemia (K+ was 6.2), resolved. Assessment and plan reviewed with Dr. Singleton.
[2024-12-06] MEDS: Insulin Lispro 100 UNIT/ML INSULN.PEN SC ×2 (11:27→16:12)
[2024-12-06 12:04] LABS: Bedside Glucose 313 mg/dL (74-106)
[2024-12-06 12:46] LABS: Bedside Glucose 352 mg/dL (74-106)
[2024-12-06 12:46] LABS: Bedside Glucose 347 mg/dL (74-106)
--- NOTE | 2024-12-06 12:47 | PCM.CONS.GEN ---
Assessment & Plan Assessment/Plan (1) UTI due to extended-spectrum beta lactamase (ESBL) producing Escherichia coli: (2) Cellulitis of right toe: (3) Bacteremia due to Escherichia coli: PLAN: Due to uti. ESBL ecoli bacteremia, so will change zosyn to meropenem. No prior h/o MRSA, and wounds improving, will stop vanc. Will follow, thank you HPI Consult Data Date of Consult: 12/06/24 HPI Narrative Reason for Consultation: bacteremia HPI Narrative: CASANDRA JONES, is a 79 F with CKD, DM, presented 12/03 to ED with several days dysuria, altered mental status. No abd or flank pain. Ucx with esbl ecoli as outpt. Admitted on vanc/zosyn. Family at bedside provided additional history. Feeling better today. Full ROS performed and neg except as noted above. 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 Obesity (BMI 30.0-34.9) Venous stasis ulcer Venous stasis dermatitis Dependent edema Left leg swelling Right leg swelling Leg edema, left Leg edema, right Urinary tract infection Insulin dependent diabetes mellitus UTI (urinary tract infection) Edema Presence of cardiac pacemaker Sick sinus syndrome Bilateral primary osteoarthritis of knee Rheumatoid arthritis History of renal insufficiency History of diabetes mellitus History of non-ST elevation myocardial infarction (NSTEMI) (03/21/21) Diabetes Cellulitis Anxiety Depression Hip fracture requiring operative repair Age related osteoporosis Osteoarthritis Cardiac murmur Type 2 diabetes mellitus without complications Carpal tunnel syndrome Arthritis Anemia Traumatic ulcer of left lower leg Fracture of femur, subcapital, right, closed Edema of both lower extremities Dermatitis Femoral neck fracture Rheumatoid arthritis Ulcer of right lower extremity with fat layer exposed Venous stasis dermatitis of both lower extremities Open wound of left lower extremity Home Medications ?Medication ?Instructions ?Recorded ?Last Taken ?Type ferrous sulfate 325 mg (65 mg 325 mg PO BID supplement 08/14/17 12/03/24 History iron) tablet furosemide 40 mg tablet 40 mg PO DAILY diuretic 11/09/20 12/03/24 History flash glucose scanning reader #2 ea 12/17/21 Unknown Rx ([place] Antione 2 Stark) insulin lispro protamine-lispro See Rx Instructions subcut DAILY 09/24/23 Unknown History 100 unit/mL (50-50) subcutaneous t2dm pen (Humalog Mix 50-50 KwikPen) blood sugar diagnostic (OneTouch #100 ea 10/24/23 Unknown Rx Verio test strips) flash glucose sensor (FreeStyle #6 ea 10/24/23 Unknown Rx Antione 2 Sensor kit) pen needle, diabetic 32 gauge x #100 ea 10/24/23 Unknown Rx /32 (BD Ultra-Fine Tracee Pen Needle) ergocalciferol (vitamin D2) 1,250 1,250 mcg PO QWEEK 11/18/23 11/29/24 History mcg (50,000 unit) capsule oxycodone 10 mg tablet 10 mg PO 4X/DAY chronic pain 3 08/20/24 12/03/24 Rx days #12 tabs ascorbic acid (vitamin C) 500 mg 500 mg PO BID 09/07/24 12/02/24 History tablet insulin glargine 100 unit/mL 3 unit subcut QPM 09/07/24 12/02/24 History subcutaneous solution zinc gluconate 50 mg tablet 50 mg PO DAILY 09/07/24 12/02/24 History gabapentin 300 mg capsule 300 mg PO BID neuropathic pain 11/23/24 12/03/24 History (Neurontin) pramipexole 1 mg tablet 1 - 2 mg PO QHS 11/23/24 12/02/24 History acetaminophen 500 mg tablet 1,000 mg PO 4X/DAY PRN fever or 12/03/24 12/02/24 History (Acetaminophen Extra Strength) pain calcitriol 0.25 mcg capsule 0.25 mcg PO DAILY 12/03/24 12/02/24 History glucagon HCl 1 mg solution for 1 mg IM Q20M PRN hypoglycemia 12/03/24 Unknown History injection (Glucagon (HCl) Emergency Kit) Allergy/AdvReac Type Severity Reaction Status Date / Time finerenone (From [facility]) AdvReac Severe Other Verified 12/03/24 09:44 Family History Mother Diabetes Father Diabetes Surgical History History of hysterectomy History of carpal tunnel release History of total right hip replacement History of total left hip replacement History of back surgery History of gastric bypass Social History household members: family number of children: 2 current occupational status: retired Smoking Status: Never smoker alcohol intake: never substance use type: does not use Physical Exam Const no apparent distress General Appearance: cooperative and lethargic HEENT normocephalic and head/scalp atraumatic Eyes PERRL and EOMs intact bilaterally Neck supple and No nodes Resp normal air movement and clear to auscultation bilaterally Cardio regular rate and regular rhythm GI soft to palpation, non-tender and non-distended Extremity General Extremity: Negative for edema Skin Skin Narrative: reviewed wound photos Neuro CN's II-XII intact bilaterally Lab / Micro Data Attestation: I reviewed the patient's lab results. 12/06/24 05:46 12/06/24 05:46 Labs: Laboratory Results - last 24 hr 12/03/24 17:20: POC Glucose 347 H 12/03/24 17:22: POC Glucose 352 H 12/05/24 16:47: POC Glucose 235 H 12/05/24 21:14: POC Glucose 195 H 12/06/24 05:46: WBC 13.7 H, RBC 2.75 L, Hgb 8.1 L, Hct 24.2 L, MCV 88.0, MCH 29.5, MCHC 33.5, RDW Std Deviation 52.6 H, RDW Coeff of Fady 16.4 H, Plt Count 184, MPV 10.9, Sodium 128 L, Potassium 4.3, Chloride 99, Carbon Dioxide 13.7 L, Anion Gap 15, BUN 91 H, Creatinine 3.98 H, Estim Creat Clear Calc 10.44 L, Est GFR (MDRD) Non-Af 11 L, BUN/Creatinine Ratio 22.7 H, Glucose 156 H, Calcium 7.3 L, Random Vancomycin 19.3 H 12/06/24 05:56: POC Glucose 158 H 12/06/24 11:24: POC Glucose 313 H Micro: Microbiology 12/03/24 10:35 Blood Culture (Wb) - Left Forearm Blood Culture - Final GNR lactose saloonkeeper
[2024-12-06] MEDS: Meropenem 500 MG in 0.9% Normal Saline (50mL MB+) 50 ML 100 MG IV ×2 (13:10→22:15)
--- NOTE | 2024-12-06 15:25 | CASEMGMT ---
Physician spoke with patient's daughter regarding Hospice. SW called patient's daughter Juliann. Introduced self and role at [facility]. Juliann was open to a referral being made to [facility]. SW explained how process works and that she should be expecting a phone call. SW then called Hospice and made the referral as well as faxed over information. Mary BABCOCK
[2024-12-06] MEDS: Midodrine HCl 5 MG Tablet 10 MG PO ×2 (16:12→22:32)
[2024-12-06 16:56] LABS: Bedside Glucose 192 mg/dL (74-106)
[2024-12-06 22:52] LABS: Bedside Glucose 143 mg/dL (74-106)
[2024-12-07 02:03] VITALS: PULSE 63
[2024-12-07 05:11] LABS: Absolute Lymphocyte Count 1.34 X10^3/uL (0.83-4.51); Absolute Neutrophil Count 12.4 X10^3/uL (2.0-7.7); Basophil# 0.01 X10^3/uL; Basophil% 0.1 % (0-1); Eosinophils% 0.7 % (0-5); Hemoglobin 8.3 g/dL (12.0-15.0); Lymphocyte # 1.34 X10^3/ul (0.83-4.51); Lymphocyte % 8.8 % (19-41); Mean Corp Hgb Conc 33.2 g/dL (32-36); Mean Corpuscular Volume 87.4 fL (81-99); Monocyte# 1.29 X10^3/uL; Monocyte% 8.4 % (0-10); NRBC Flagged by Analyzer 0.1 % (0-5); Neutrophil # 12.39 X10^3/uL (2.7-7.7); Neutrophil % 80.9 % (47-70); Platelet Count 212 K/mm3 (150-450); RBC Distribution Width CV 16.2 % (11.6-14.6); RBC Distribution Width SD 51.1 fl (35.1-43.9); Red Blood Count 2.86 M/mm3 (4.2-5.4); White Blood Count 15.3 K/mm3 (4.4-11.0)
[2024-12-07 05:44] LABS: Anion Gap 16 (5-15); BUN 99 mg/dL (4-19); BUN/Creat Ratio 25.2 RATIO (10-20); Calcium,Total 7.5 mg/dL (7.6-11.0); Carbon Dioxide 14.6 mmol/L (21.0-32.0); Chloride 98 mmol/L (98-108); Creatinine, Serum 3.91 mg/dL (0.70-1.20); EST Glomerular Filtration Rate 11 (>60); Estimated Creatinine Clearance 10.63 ml/min (50-250); Glucose 112 mg/dL (70-99); Magnesium 1.9 mg/dL (1.5-2.2); Potassium 4.7 mmol/L (3.3-5.1); Sodium Level 129 mmol/L (133-145)
[2024-12-07] MEDS: oxyCODONE 5 MG Tablet 2.5 MG PO ×3 (05:59→23:32)
[2024-12-07] MEDS: Furosemide 20 MG/2 ML VIAL IV ×3 (06:00→23:30)
[2024-12-07 06:49] VITALS: BP 118/58; PULSE 64; RESP 16; TEMP 37.2; O2SAT 97
[2024-12-07 07:04] LABS: Bedside Glucose 110 mg/dL (74-106)
[2024-12-07 07:36] VITALS: O2SAT 96
[2024-12-07] MEDS: Midodrine HCl 5 MG Tablet 10 MG PO ×3 (08:39→16:48)
[2024-12-07] MEDS: Juven (unflavored) Packet 1 PACKET PO ×2 (08:39→16:48)
[2024-12-07] MEDS: Meropenem 500 MG in 0.9% Normal Saline (50mL MB+) 50 ML 100 MG IV ×2 (09:45→23:31)
[2024-12-07] MEDS: Insulin Glargine-YFGN 100 UNIT/ML Pen 15 UNIT SC (09:46)
[2024-12-07] MEDS: Heparin Injection (Vial) 5,000 UNIT/ML VIAL 5000 UNIT SC ×2 (09:46→23:31)
[2024-12-07] MEDS: Calcitriol 0.25 MCG Capsule PO (09:47)
[2024-12-07] MEDS: Ascorbic Acid 500 MG Tablet PO ×2 (09:48→23:32)
[2024-12-07] MEDS: Gabapentin 300 MG Capsule PO ×2 (09:53→23:32)
[2024-12-07] MEDS: MENTHOL 226.8 GM JAR 1 APPLIC TOPICAL (10:05)
--- NOTE | 2024-12-07 10:29 | PCM.PN.ID ---
Physical Exam Narrative Not feeling well. No fever, denies abd pain. Family meeting with hospice today. Const alert and no apparent distress Resp normal air movement and clear to auscultation bilaterally Cardio regular rate and regular rhythm GI soft to palpation, non-tender and non-distended Skin no rashes or lesions noted ID ID: Route of nutrition/ use of supplements: [] Nutritional Intake: [] IV Site: [] Son Catheter: [] Assessment & Plan Assessment/Plan (1) UTI due to extended-spectrum beta lactamase (ESBL) producing Escherichia coli: (2) Cellulitis of right toe: (3) Bacteremia due to Escherichia coli: PLAN: Due to uti. ESBL ecoli bacteremia, cont meropenem. Plan is for hospice, no oral options, so would stop abx at that time. Will follow as needed, d/w pillowcase sewer
[2024-12-07 11:00] VITALS: BP 110/50; PULSE 65; RESP 17; TEMP 36.9; O2SAT 99
[2024-12-07] MEDS: Insulin Lispro 100 UNIT/ML INSULN.PEN SC ×3 (11:32→23:30)
[2024-12-07] MEDS: Ferrous Sulfate 325 MG Tablet PO (11:32)
[2024-12-07 11:55] LABS: Bedside Glucose 206 mg/dL (74-106)
--- NOTE | 2024-12-07 12:35 | CASEMGMT ---
Hospice is at [facility] and is meeting with patient and her daughter early (12:30). Mary BABCOCK
--- NOTE | 2024-12-07 14:17 | CASEMGMT ---
Addendum entered by Mary Miranda 12/07/24 14:23: RN aware and physician also updated. Mary BABCOCK Original Note: Patient and her daughter did not sign with hospice. Patient's daughter would like patient to have a few more antibiotics and see how she does. Mary BABCOCK
--- NOTE | 2024-12-07 14:21 | WOUNDNOTE ---
Daughter requesting low air loss mattress for patient. Envision low air loss mattress ordered from [facility]. pt and daughter appreciative.
--- NOTE | 2024-12-07 14:44 | PCM.PN.HOSP ---
Reason for Visit Reason for Visit: Diagnoses Unspecified Escherichia coli [E. coli] as the cause of diseases classified elsewhere (12/03/24) Other Escherichia coli [E. coli] as the cause of diseases classified elsewhere (12/03/24) Hyperkalemia (12/03/24) Cellulitis of right toe (12/03/24) Acute kidney failure, unspecified (12/03/24) Urinary tract infection, site not specified (12/03/24) Bacteremia (12/03/24) Extended spectrum beta lactamase (ESBL) resistance (12/03/24) Objective Data Objective Data Vital Signs: Vital Signs Temp Pulse Resp BP Pulse Ox O2 Del Method O2 Flow Rate 98.4 F 65 17 110/50 L 99 Nasal Cannula 2 12/07/24 11:00 12/07/24 11:00 12/07/24 11:00 12/07/24 11:00 12/07/24 11:00 12/07/24 14:00 12/07/24 14:00 Oxygen Flow Rate (L/min) 2 Oxygen Delivery Method Nasal Cannula Weight: 162 lb 7.691 oz Body Mass Index (BMI) 32.8 Intake & Output: Intake and Output for Last 24 Hours 12/05/24 12/06/24 12/07/24 23:59 23:59 23:59 Intake Total 1650 / 1650 1222.29 / 1222.29 450 / 450 Output Total 850 / 850 1300 / 1300 775 / 775 Balance 800 / 800 -77.71 / -77.71 -325 / -325 Lab / Micro Data 12/07/24 04:30 12/07/24 04:30 Labs: Laboratory Results - last 24 hr 12/06/24 16:10: POC Glucose 192 H 12/06/24 22:14: POC Glucose 143 H 12/07/24 04:30: WBC 15.3 H, RBC 2.86 L, Hgb 8.3 L, Hct 25.0 L, MCV 87.4, MCH 29.0, MCHC 33.2, RDW Std Deviation 51.1 H, RDW Coeff of Fady 16.2 H, Plt Count 212, MPV 11.0, Immature Gran % (Auto) 1.100 H, Neut % (Auto) 80.9 H, Lymph % (Auto) 8.8 L, Kings % (Auto) 8.4, Eos % (Auto) 0.7, Baso % (Auto) 0.1, Absolute Neuts (auto) 12.4 H, Absolute Lymphs (auto) 1.34, Nucleated RBC % 0.1, Sodium 129 L, Potassium 4.7, Chloride 98, Carbon Dioxide 14.6 L, Anion Gap 16 H, BUN 99 H, Creatinine 3.91 H, Estim Creat Clear Calc 10.63 L, Est GFR (MDRD) Non-Af 11 L, BUN/Creatinine Ratio 25.2 H, Glucose 112 H, Calcium 7.5 L, Magnesium 1.9 12/07/24 06:11: POC Glucose 110 H 12/07/24 11:29: POC Glucose 206 H Micro: Microbiology 12/03/24 10:35 Blood Culture (Wb) - Left Forearm Blood Culture - Final GNR lactose research assistant 12/03/24 10:11 Urine, Clean Catch Urine Culture - Final ESBL Escherichia coli 12/03/24 10:11 Blood Culture (Wb) - Right Wrist Blood Culture - Final ESBL Escherichia coli Radiography Diagnostic Testing: Radiology Impression Echocardiogram 12/05/24 08:02 Interpretation Summary Mild concentric left ventricular hypertrophy. Mild to moderate generalized hypokinesis. Estimated LVEF 40-45%. Stage I diastolic dysfunction. The left atrium is mildly enlarged. Mild-Moderate (1-2+) mitral valve insufficiency. Moderate (2+) tricuspid valve insufficiency. Right ventricular systolic pressure estimated to be 44 mmHg. Ordering Physician: Ashu Sun Referring Physician: PREETI AGUDELO Performed By: Sudha Willingham RDCS Physical Exam Narrative Seen and examined Patient is more awake than yesterday. Still complain of pain mainly on the back and tailbone. She is not moving out of the bed and is scared because it exacerbates her pain. Complain of severe tailbone pain. Chronic lower extremity weakness and pain, does not let me to extend her knees. Denies burning pain in urine before coming to the hospital. Not on home oxygen. No crepitations. Physical exam General: Alert, awake oriented x 3. HEENT: Atraumatic, PERRLA, EOMI, Normocephalic Oral: Oral mucosa dry. No Gingival or Mucosal Lesions/ Ulcerations Neck: Supple, No JVD, Negative Carotid Bruits Chest wall/Lungs: Air entry diminished in all lung bills. On 2 L of oxygen. Cardiovascular: Paced rhythm, Normal S1, Normal S2, No M/G/R Abdomen: Bowel Sounds Present, Soft, Non Tender, Non-Distended : Son catheter. No renal angle tenderness. No suprapubic tenderness. Extremities: Bilateral nonpitting edema, Capillary Refill Less than 3 Seconds Skin: Right heel is padded. Pressure ulcer on the right heel and right buttock. Musculoskeletal: No Tenderness to Palpation of Joints or Extremities. ROM restricted Neurological: Cranial nerves II-XII grossly intact, DTR 2+/4. Muscle strength could not be examined. Psych/Mental Status: Flat affect. Assessment & Plan Assessment/Plan (1) UTI due to extended-spectrum beta lactamase (ESBL) producing Escherichia coli: (2) Acute kidney injury: (3) Acute hyperkalemia: PLAN: Plan Patient is a 79-year-old female who presented to [facility] ED on 12/03/2024 with dysuria and urine culture positive for ESBL E. coli. 1. Sepsis secondary to ESBL E. coli UTI with gram-negative bacteremia ? ID consulted. Urine culture from 12/01 growing greater than 100,000 ESBL E. coli sensitive to Zosyn. UA on admit here with 500 leukocyte esterase, negative nitrates, 25-50 WBCs, rare bacteria. Met sepsis criteria on admission with leukocytosis, fevers, NATI and presumed urinary source. Blood cultures on 12/03 preliminarily positive for gram-negative rods. Initially started on IV vancomycin and Zosyn. 12/06: Patient was seen by ID. ESBL E. coli bacteremia. Zosyn was changed to meropenem. No history of MRSA therefore vancomycin discontinued. Wounds improving. Sepsis is resolved. 12/07: ID follow-up appreciated. Continue meropenem. Patient refused for hospice and plan will be discharged to SNF when medically ready 2. Concern for right lower extremity infection in setting of chronic venous stasis changes with right heel pressure wound ? Follows with Dr. Forbes, last office visit on 11/30. Right heel wound was debrided down to level of subcu tissue at that time with no infectious signs noted. However, patient was also found to have ingrowing right medial hallux toenail and on I&D, scant purulent drainage was noted. Previous wound culture on 08/18/2024 grew MSSA. 3. NATI on CKD stage 4 with hyperkalemia and metabolic acidosis ? Nephrology following. Creatinine 3.36, BUN 73, potassium 5.8, bicarb 12 on admit. Baseline creatinine 1.7-1.9. No EKG changes noted. Initially suspected to be prerenal NATI in setting of infection. Given 2 L of IV fluids on admit without improvement and then started on IV bicarbonate drip on 12/04. 12/06: Patient appears volume overloaded. On Lasix 20 mg IV twice daily but blood pressure is low. Higher suspicion of cardiorenal syndrome. Continue home calcitriol. Appreciate further nephrology recommendations. Kidney function not improving. Urine output also low, 200 mL since 12 midnight. Patient is low BP. Midodrine 10 mg 3 times daily added 12/07: Creatinine 3.91 no major change in GFR. Patient has high anion gap metabolic acidosis. Started on sodium bicarb. 4. Acute metabolic encephalopathy on dementia, multiple sedative and pain medications ? Patient noted to be more lethargic and somewhat confused since 12/04. ABG with pH 7.28, pCO2 28 so no concern for hypercapnia. BUN has been worsening with most recent BUN 86 on 12/05. Patient has also been on home oxycodone 10 mg scheduled every 6 hours and given her NATI will have decreased clearance of this; had doses held on 12/04 and will decrease to 5 mg every 6 hours for now. Continue to monitor closely. 12/06: Patient was awake but will deep sleep in afternoon. Probably due to oxycodone 5 mg Q6 hourly. Oxycodone dose decreased to 2.5 mg every 6 probably 12/07: Patient is more awake after changing the oxycodone. 5. Acute on chronic debility ? PT/OT/case management following. Recently required SNF placement after hospitalization in August. Most recently has been following with home health care. Poor therapy scores at this point, will need to either SNF or home with home health care on discharge. 6. Type 2 diabetes mellitus with neuropathy ? Follows with Dr. Collier. Most recent A1c 6.3% but Dr. Valencia noted this was underestimated in setting of anemia, is likely closer to the 7-8 range. Home regimen of Lantus 3 units at night and Humalog 50-50 mix. Blood sugars have been elevated to the mid to high 200s since admission. Started Lantus 15 units daily on 12/05, will continue high-dose sliding scale insulin with meals for now. Adjust as needed. Continue home gabapentin. 7. Restless leg syndrome ? Continue home pramipexole. 8. Chronic pain syndrome ? Continue reduced dose of oxycodone and gabapentin. 9. History of sick sinus syndrome s/p pacemaker placement ? Stable in paced rhythm on admit. 10. Chronic iron deficiency anemia and anemia of kidney disease ? Hemoglobin stable at baseline of 8-9 on admission. Continue home iron supplement. DVT prophylaxis: Heparin subcu CODE STATUS: DNR CCA, DNI In view of multiple comorbidities and patient low functional status including NATI and CKD stage IV, drowsiness/lethargy, low BP, acute on chronic debility and ESBL E. coli bacteremia, I talked to the patient's daughter and updated her clinical status. I suggested hospice/Perative care and she agreed. Currently DNR CCA with no intubation. Hospice meeting was done at 1:30 PM. They did not sign for hospice. Daughter wants to see outpatient dialysis for a few more days of antibiotics Charges/Coding Visit Charges Inpatient E&M: 44987 Subs Hosp L2
[2024-12-07] MEDS: Sodium Bicarbonate 650 MG Tablet PO ×2 (16:54→23:33)
[2024-12-07 17:06] LABS: Bedside Glucose 166 mg/dL (74-106)
[2024-12-07 17:08] LABS: Cytoplasmic Ab (C-ANCA) <1:20 titer (Neg:<1:20); Perinuclear Ab (P-ANCA) <1:20 titer (Neg:<1:20)
[2024-12-07 22:48] VITALS: BP 122/50; PULSE 64; RESP 18; TEMP 36.9; O2SAT 98
[2024-12-07] MEDS: 0.9% Saline Lock 10 ML Syringe IV (23:31)
[2024-12-08] VITALS (7 sets, daily range): BP systolic 102–126; BP diastolic 43–50; PULSE 60–82; RESP 16–17; TEMP 36.6–37.1; O2SAT 93–99
[2024-12-08 00:18] LABS: Bedside Glucose 152 mg/dL (74-106)
[2024-12-08] MEDS: Furosemide 20 MG/2 ML VIAL IV (06:39)
[2024-12-08] MEDS: 0.9% Saline Lock 10 ML Syringe IV ×2 (06:39→22:48)
[2024-12-08 06:49] LABS: Bedside Glucose 106 mg/dL (74-106)
[2024-12-08] MEDS: Juven (unflavored) Packet 1 PACKET PO ×2 (08:19→17:29)
[2024-12-08] MEDS: Midodrine HCl 5 MG Tablet 10 MG PO ×3 (08:19→17:29)
[2024-12-08] MEDS: Heparin Injection (Vial) 5,000 UNIT/ML VIAL 5000 UNIT SC ×2 (08:19→22:44)
[2024-12-08] MEDS: Insulin Glargine-YFGN 100 UNIT/ML Pen 15 UNIT SC (08:20)
[2024-12-08] MEDS: Meropenem 500 MG in 0.9% Normal Saline (50mL MB+) 50 ML 100 MG IV ×2 (08:20→22:44)
[2024-12-08] MEDS: Gabapentin 300 MG Capsule PO ×2 (08:21→22:53)
[2024-12-08] MEDS: Sodium Bicarbonate 650 MG Tablet PO ×4 (08:21→22:48)
[2024-12-08] MEDS: Ascorbic Acid 500 MG Tablet PO ×2 (08:21→22:48)
[2024-12-08] MEDS: Calcitriol 0.25 MCG Capsule PO (08:21)
[2024-12-08] MEDS: MENTHOL 226.8 GM JAR 1 APPLIC TOPICAL (08:32)
--- NOTE | 2024-12-08 08:42 | PN.HOSP_ITS ---
Reason for Visit Reason for Visit: Diagnoses Unspecified Escherichia coli [E. coli] as the cause of diseases classified elsewhere (12/03/24) Other Escherichia coli [E. coli] as the cause of diseases classified elsewhere (12/03/24) Hyperkalemia (12/03/24) Cellulitis of right toe (12/03/24) Acute kidney failure, unspecified (12/03/24) Urinary tract infection, site not specified (12/03/24) Bacteremia (12/03/24) Extended spectrum beta lactamase (ESBL) resistance (12/03/24) Objective Data Objective Data Vital Signs: Vital Signs Temp Pulse Resp BP Pulse Ox O2 Del Method O2 Flow Rate 98.2 F 62 16 111/44 L 98 Nasal Cannula 2 12/08/24 08:40 12/08/24 08:40 12/08/24 08:40 12/08/24 08:40 12/08/24 08:40 12/08/24 08:40 12/08/24 08:40 Oxygen Flow Rate (L/min) 2 Oxygen Delivery Method Nasal Cannula Weight: 162 lb 7.691 oz Body Mass Index (BMI) 32.8 Intake & Output: Intake and Output for Last 24 Hours 12/06/24 12/07/24 12/08/24 23:59 23:59 23:59 Intake Total 1222.29 / 1222.29 810 / 810 60 / 60 Output Total 1300 / 1300 1375 / 2275 1600 / 1600 Balance -77.71 / -77.71 -565 / -1465 -1540 / -1540 Lab / Micro Data 12/07/24 04:30 12/07/24 04:30 Labs: Laboratory Results - last 24 hr 12/06/24 05:46: c-ANCA Antibody <1:20, Atypical p-ANCA <1:20, p-ANCA Antibody <1:20 12/07/24 11:29: POC Glucose 206 H 12/07/24 16:41: POC Glucose 166 H 12/07/24 23:09: POC Glucose 152 H 12/08/24 05:47: POC Glucose 106 Micro: Microbiology 12/03/24 10:35 Blood Culture (Wb) - Left Forearm Blood Culture - Final GNR lactose skeiner 12/03/24 10:11 Urine, Clean Catch Urine Culture - Final ESBL Escherichia coli 12/03/24 10:11 Blood Culture (Wb) - Right Wrist Blood Culture - Final ESBL Escherichia coli Physical Exam Narrative Seen and examined Patient is awake and alert. Still complain of pain in the back but better than yesterday. She was able to move her knee joints but could not lift the legs. She is not moving out of the bed and is scared because it exacerbates her pain. Chronic lower extremity weakness and pain. Denies burning pain in urine before coming to the hospital. Not on home oxygen. No crepitations. Physical exam General: Alert, awake oriented x 3. HEENT: Atraumatic, PERRLA, EOMI, Normocephalic Oral: Oral mucosa dry. No Gingival or Mucosal Lesions/ Ulcerations Neck: Supple, No JVD, Negative Carotid Bruits Chest wall/Lungs: Air entry diminished in all lung bills. On 2 L of oxygen. Cardiovascular: Paced rhythm, Normal S1, Normal S2, No M/G/R Abdomen: Bowel Sounds Present, Soft, Non Tender, Non-Distended : Son catheter. No renal angle tenderness. No suprapubic tenderness. Extremities: Bilateral nonpitting edema, Capillary Refill Less than 3 Seconds Skin: Right heel is padded. Pressure ulcer on the right heel and right buttock. Musculoskeletal: No Tenderness to Palpation of Joints or Extremities. ROM restricted Neurological: Cranial nerves II-XII grossly intact, DTR 2+/4. Muscle strength could not be examined. Psych/Mental Status: Flat affect. Assessment & Plan Assessment/Plan (1) UTI due to extended-spectrum beta lactamase (ESBL) producing Escherichia coli: (2) Acute kidney injury: (3) Acute hyperkalemia: PLAN: Plan Patient is a 79-year-old female who presented to [facility] ED on 12/03/2024 with dysuria and urine culture positive for ESBL E. coli. 1. Sepsis secondary to ESBL E. coli UTI with gram-negative bacteremia ? ID consulted. Urine culture from 12/01 growing greater than 100,000 ESBL E. coli sensitive to Zosyn. UA on admit here with 500 leukocyte esterase, negative nitrates, 25-50 WBCs, rare bacteria. Met sepsis criteria on admission with leukocytosis, fevers, NATI and presumed urinary source. Blood cultures on 12/03 preliminarily positive for gram-negative rods. Initially started on IV vancomycin and Zosyn. 12/06: Patient was seen by ID. ESBL E. coli bacteremia. Zosyn was changed to meropenem. No history of MRSA therefore vancomycin discontinued. Wounds improving. Sepsis is resolved. 12/07: ID follow-up appreciated. Continue meropenem. Patient refused for hospice and plan will be discharged to SNF when medically ready 12/08: Her meropenem dose will be completed tomorrow. the patient daughter stated that that treatment of ESBL E. coli bacteremia can make a difference in improvement of her general wellbeing and will decide about hospice afterwards. 2. Concern for right lower extremity infection in setting of chronic venous stasis changes with right heel pressure wound ? Follows with Dr. Forbes, last office visit on 11/30. Right heel wound was debrided down to level of subcu tissue at that time with no infectious signs noted. However, patient was also found to have ingrowing right medial hallux toenail and on I&D, scant purulent drainage was noted. Previous wound culture on 08/18/2024 grew MSSA. 12/08: Patient has right buttock and right heel ulcers 3. NATI on CKD stage 4 with hyperkalemia and metabolic acidosis ? Nephrology following. Creatinine 3.36, BUN 73, potassium 5.8, bicarb 12 on admit. Baseline creatinine 1.7-1.9. No EKG changes noted. Initially suspected to be prerenal NATI in setting of infection. Given 2 L of IV fluids on admit without improvement and then started on IV bicarbonate drip on 12/04. 12/06: Patient appears volume overloaded. On Lasix 20 mg IV twice daily but blood pressure is low. Higher suspicion of cardiorenal syndrome. Continue home calcitriol. Appreciate further nephrology recommendations. Kidney function not improving. Urine output also low, 200 mL since 12 midnight. Patient is low BP. Midodrine 10 mg 3 times daily added 12/07: Creatinine 3.91 no major change in GFR. Patient has high anion gap metabolic acidosis. Started on sodium bicarb. 12/08: 4. Acute metabolic encephalopathy on dementia, multiple sedative and pain medications ? Patient noted to be more lethargic and somewhat confused since 12/04. ABG with pH 7.28, pCO2 28 so no concern for hypercapnia. BUN has been worsening with most recent BUN 86 on 12/05. Patient has also been on home oxycodone 10 mg scheduled every 6 hours and given her NATI will have decreased clearance of this; had doses held on 12/04 and will decrease to 5 mg every 6 hours for now. Continue to monitor closely. 12/06: Patient was awake but will deep sleep in afternoon. Probably due to oxycodone 5 mg Q6 hourly. Oxycodone dose decreased to 2.5 mg every 6 probably 12/07: Patient is more awake after changing the oxycodone. 5. Acute on chronic debility ? PT/OT/case management following. Recently required SNF placement after hospitalization in August. Most recently has been following with home health care. Poor therapy scores at this point, will need to either SNF or home with home health care on discharge. 6. Type 2 diabetes mellitus with neuropathy ? Follows with Dr. Collier. Most recent A1c 6.3% but Dr. Valencia noted this was underestimated in setting of anemia, is likely closer to the 7-8 range. Home regimen of Lantus 3 units at night and Humalog 50-50 mix. Blood sugars have been elevated to the mid to high 200s since admission. Started Lantus 15 units daily on 12/05, will continue high-dose sliding scale insulin with meals for now. Adjust as needed. Continue home gabapentin. 7. Restless leg syndrome ? Continue home pramipexole. 8. Chronic pain syndrome ? Continue reduced dose of oxycodone and gabapentin. 9. History of sick sinus syndrome s/p pacemaker placement ? Stable in paced rhythm on admit. 10. Chronic iron deficiency anemia and anemia of kidney disease ? Hemoglobin stable at baseline of 8-9 on admission. Continue home iron supplement. DVT prophylaxis: Heparin subcu CODE STATUS: DNR CCA, DNI In view of multiple comorbidities and patient low functional status including NATI and CKD stage IV, drowsiness/lethargy, low BP, acute on chronic debility and ESBL E. coli bacteremia, I talked to the patient's daughter and updated her clinical status. I suggested hospice/Perative care and she agreed. Currently DNR CCA with no intubation. Hospice meeting was done at 1:30 PM. They did not sign for hospice. Daughter wants to see outpatient dialysis for a few more days of antibiotics Charges/Coding Visit Charges Inpatient E&M: 91697 Subs Hosp L2
[2024-12-08] MEDS: oxyCODONE 5 MG Tablet 2.5 MG PO (10:08)
--- NOTE | 2024-12-08 10:08 | WOUNDNOTE ---
Pt on low air loss mattress as requested by daughter.
[2024-12-08] MEDS: Ferrous Sulfate 325 MG Tablet PO (11:55)
[2024-12-08] MEDS: Insulin Lispro 100 UNIT/ML INSULN.PEN SC ×2 (12:03→17:29)
[2024-12-08 12:21] LABS: Bedside Glucose 214 mg/dL (74-106)
--- NOTE | 2024-12-08 13:41 | PCM.PN.ID ---
Physical Exam Narrative Feeling better, no fever, no abd pain Const alert and no apparent distress General Appearance: cooperative Resp normal air movement and clear to auscultation bilaterally Cardio regular rate and regular rhythm GI soft to palpation, non-tender and non-distended Skin no rashes or lesions noted ID ID: Route of nutrition/ use of supplements: [] Nutritional Intake: [] IV Site: [] Son Catheter: [] Assessment & Plan Assessment/Plan (1) UTI due to extended-spectrum beta lactamase (ESBL) producing Escherichia coli: (2) Cellulitis of right toe: (3) Bacteremia due to Escherichia coli: PLAN: Due to uti. ESBL ecoli bacteremia, cont meropenem. Abx to finish tomorrow. Will follow as needed, d/w supervisor case loading
--- NOTE | 2024-12-08 16:11 | CASEMGMT ---
GALILEO spoke with patient's daughter Juliann. GALILEO asked Juliann about discharge plan. Juliann said she spoke with patient and they agreed she needs rehab. Patient was willing to go to [facility] again. GALILEO asked Geraldine to please send a referral to [facility]. Mary Miranda MSW [place]
[2024-12-08 18:08] LABS: Bedside Glucose 161 mg/dL (74-106)
--- NOTE | 2024-12-08 18:08 | PCM.PN.REN ---
Subjective Subjective no new complaints overall breathing is better Objective Data Objective Data Vital Signs: Vital Signs Temp Pulse Resp BP Pulse Ox O2 Del Method O2 Flow Rate 98.2 F 62 17 111/44 L 99 Nasal Cannula 2 12/08/24 11:00 12/08/24 11:00 12/08/24 11:00 12/08/24 11:00 12/08/24 11:00 12/08/24 12:24 12/08/24 12:24 Oxygen Flow Rate (L/min) 2 Oxygen Delivery Method Nasal Cannula Weight: 73.7 kg Body Mass Index (BMI) 32.8 Intake & Output: Intake and Output for Last 24 Hours 12/06/24 12/07/24 12/08/24 23:59 23:59 23:59 Intake Total 1222.29 / 1222.29 810 / 810 1080 / 1080 Output Total 1300 / 1300 1375 / 2275 3250 / 3250 Balance -77.71 / -77.71 -565 / -1465 -2170 / -2170 Lab / Micro Data 12/07/24 04:30 12/07/24 04:30 Labs: Laboratory Results - last 24 hr 12/07/24 23:09: POC Glucose 152 H 12/08/24 05:47: POC Glucose 106 12/08/24 11:50: POC Glucose 214 H Micro: Microbiology 12/03/24 10:35 Blood Culture (Wb) - Left Forearm Blood Culture - Final GNR 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 No rales or rhonchi. On O2 2 L per nasal cannula Abdomen soft, nontender Edema bilateral lower legs better than before Const alert Constitutional Narrative: Complaint on pain in the area of coccyx General Appearance: in distress Positive for mild and frail Orientation / Consciousness: oriented to person and oriented to place HEENT normocephalic Neck no lymphadenopathy Resp no use of accessory muscles Auscultation: diminished lung sounds Cardio regular rate and no rub GI non-tender and non-distended Extremity Extremity Narrative: She has got significant dependent edema, mostly her back and buttocks Neuro Sensorium / Orientation: awake and alert Psych cooperative Assessment & Plan Assessment/Plan (1) Acute hyperkalemia: (2) Acute kidney injury: PLAN: - 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 Baseline cr around 1.7 or so. Previous urine PCR 1.7 g. Renal ultrasound without hydronephrosis. Initially on admission patient treated with IV fluids then patient became edematous. BNP 34400, on O2 nasal cannula (does not wear oxygen at home). CXR was wet. IV fluids stopped. NATI possibly from cardiorenal syndrome. Currently on IV Lasix 20 mg IV every 8 hours. edema is better. minimal O2 dw family at bedside will hold IV lasix likely start PO lasix tomorrow
[2024-12-08 23:08] LABS: Bedside Glucose 139 mg/dL (74-106)
[2024-12-09] VITALS (7 sets, daily range): BP systolic 111–147; BP diastolic 50–61; PULSE 61–90; RESP 14–18; TEMP 36.6–37.3; O2SAT 94–98
[2024-12-09] MEDS: oxyCODONE 5 MG Tablet 2.5 MG PO ×3 (03:21→21:48)
[2024-12-09] MEDS: Acetaminophen 325 MG Tablet 650 MG PO ×3 (05:49→21:48)
[2024-12-09] MEDS: MENTHOL 226.8 GM JAR 1 APPLIC TOPICAL (05:49)
[2024-12-09 06:18] LABS: Bedside Glucose 109 mg/dL (74-106)
[2024-12-09 07:07] LABS: Absolute Lymphocyte Count 2.28 X10^3/uL (0.83-4.51); Absolute Neutrophil Count 9.7 X10^3/uL (2.0-7.7); Basophil# 0.03 X10^3/uL; Basophil% 0.2 % (0-1); Eosinophil# 0.28 X10^3/uL; Eosinophils% 2.1 % (0-5); Hematocrit 26.8 % (37-47); Hemoglobin 8.8 g/dL (12.0-15.0); Lymphocyte # 2.28 X10^3/ul (0.83-4.51); Lymphocyte % 16.8 % (19-41); Mean Corp Hgb Conc 32.8 g/dL (32-36); Mean Corpuscular Hgb 29.1 pg (27.0-32.0); Mean Corpuscular Volume 88.7 fL (81-99); Mean Platelet Vol. 11.5 fl (6.2-12.0); Monocyte# 1.11 X10^3/uL; Monocyte% 8.2 % (0-10); NRBC Flagged by Analyzer 0 % (0-5); Neutrophil # 9.65 X10^3/uL (2.7-7.7); Neutrophil % 71.1 % (47-70); POSITIVE MORPHOLOGY YES; Platelet Count 239 K/mm3 (150-450); RBC Distribution Width CV 15.3 % (11.6-14.6); RBC Distribution Width SD 49.6 fl (35.1-43.9); Red Blood Count 3.02 M/mm3 (4.2-5.4); White Blood Count 13.6 K/mm3 (4.4-11.0)
[2024-12-09 07:15] LABS: Differential Indicated SCAN CRITERIA MET
[2024-12-09 07:58] LABS: Atypical Lymphocyte 1+ %; Differential Comment S
[2024-12-09 07:59] LABS: Anion Gap 14 (5-15); BUN 114 mg/dL (4-19); Calcium,Total 7.7 mg/dL (7.6-11.0); Carbon Dioxide 18.2 mmol/L (21.0-32.0); Chloride 99 mmol/L (98-108); Creatinine, Serum 3.08 mg/dL (0.70-1.20); EST Glomerular Filtration Rate 15 (>60); Estimated Creatinine Clearance 13.49 ml/min (50-250); Glucose 110 mg/dL (70-99); Pathologist Review May foll; Potassium 4.3 mmol/L (3.3-5.1); Sodium Level 131 mmol/L (133-145)
--- NOTE | 2024-12-09 08:23 | CASEMGMT ---
Discharge Planning Referral sent to [facility]. Geraldine Steven DC Planning Asst
[2024-12-09] MEDS: Juven (unflavored) Packet 1 PACKET PO ×2 (09:09→18:12)
[2024-12-09] MEDS: Midodrine HCl 5 MG Tablet 10 MG PO ×3 (09:09→18:12)
[2024-12-09] MEDS: Heparin Injection (Vial) 5,000 UNIT/ML VIAL 5000 UNIT SC ×2 (09:09→21:49)
[2024-12-09] MEDS: Gabapentin 300 MG Capsule PO ×2 (09:10→21:48)
[2024-12-09] MEDS: Calcitriol 0.25 MCG Capsule PO (09:10)
[2024-12-09] MEDS: Sodium Bicarbonate 650 MG Tablet PO ×4 (09:10→21:49)
[2024-12-09] MEDS: Insulin Glargine-YFGN 100 UNIT/ML Pen 15 UNIT SC (09:10)
[2024-12-09] MEDS: Ascorbic Acid 500 MG Tablet PO ×2 (09:11→21:49)
[2024-12-09] MEDS: 0.9% Saline Lock 10 ML Syringe IV ×2 (09:11→21:49)
[2024-12-09] MEDS: Meropenem 500 MG in 0.9% Normal Saline (50mL MB+) 50 ML 100 MG IV (09:20)
--- NOTE | 2024-12-09 10:27 | CASEMGMT ---
[facility] has accepted and will submit for precert. Geraldine Steven DC Planning Asst.
[2024-12-09] MEDS: Ferrous Sulfate 325 MG Tablet PO (11:30)
--- NOTE | 2024-12-09 11:33 | CASEMGMT ---
Discharge Planning Pts daughter (Juliann) notified that [facility] has accepted and has submitted for precert. Geraldine Steven DC Planning Asst.
[2024-12-09] MEDS: Insulin Lispro 100 UNIT/ML INSULN.PEN SC ×3 (11:35→22:04)
[2024-12-09 11:56] LABS: Bedside Glucose 157 mg/dL (74-106)
--- NOTE | 2024-12-09 13:13 | PCM.PN.REN ---
Subjective Subjective no new events Objective Data Objective Data Vital Signs: Vital Signs Temp Pulse Resp BP Pulse Ox O2 Del Method O2 Flow Rate 98.1 F 61 14 111/50 L 96 Nasal Cannula 1 12/09/24 09:06 12/09/24 09:06 12/09/24 09:06 12/09/24 09:06 12/09/24 09:06 12/09/24 09:06 12/09/24 09:06 Oxygen Flow Rate (L/min) 1 Oxygen Delivery Method Nasal Cannula Weight: 73.7 kg Body Mass Index (BMI) 32.8 Intake & Output: Intake and Output for Last 24 Hours 12/07/24 12/08/24 12/09/24 23:59 23:59 23:59 Intake Total 810 / 810 1080 / 1080 120 / 120 Output Total 1375 / 2275 3700 / 3700 700 / 700 Balance -565 / -1465 -2620 / -2620 -580 / -580 Lab / Micro Data 12/09/24 06:38 12/09/24 06:38 Labs: Laboratory Results - last 24 hr 12/08/24 17:26: POC Glucose 161 H 12/08/24 22:42: POC Glucose 139 H 12/09/24 05:56: POC Glucose 109 H 12/09/24 06:38: WBC 13.6 H, RBC 3.02 L, Hgb 8.8 L, Hct 26.8 L, MCV 88.7, MCH 29.1, MCHC 32.8, RDW Std Deviation 49.6 H, RDW Coeff of Fady 15.3 H, Plt Count 239, MPV 11.5, Immature Gran % (Auto) 1.600 H, Neut % (Auto) 71.1 H, Lymph % (Auto) 16.8 L, [place] % (Auto) 8.2, Eos % (Auto) 2.1, Baso % (Auto) 0.2, Absolute Neuts (auto) 9.7 H, Absolute Lymphs (auto) 2.28, Nucleated RBC % 0, Differential Comment S, Diff Path Review May foll, Atypical Lymphocytes 1+, Sodium 131 L, Potassium 4.3, Chloride 99, Carbon Dioxide 18.2 L, Anion Gap 14, BUN 114 H*, Creatinine 3.08 H, Estim Creat Clear Calc 13.49 L, Est GFR (MDRD) Non-Af 15 L, BUN/Creatinine Ratio 37.0 H, Glucose 110 H, Calcium 7.7 12/09/24 11:34: POC Glucose 157 H Micro: Microbiology 12/03/24 10:35 Blood Culture (Wb) - Left Forearm Blood Culture - Final GNR 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 No rales or rhonchi. On O2 2 L per nasal cannula Abdomen soft, nontender Edema bilateral lower legs better than before Const alert Constitutional Narrative: Complaint on pain in the area of coccyx General Appearance: in distress Positive for mild and frail Orientation / Consciousness: oriented to person and oriented to place HEENT normocephalic Neck no lymphadenopathy Resp no use of accessory muscles Auscultation: diminished lung sounds Cardio regular rate and no rub GI non-tender and non-distended Extremity Extremity Narrative: She has got significant dependent edema, mostly her back and buttocks Neuro Sensorium / Orientation: awake and alert Psych cooperative Assessment & Plan Assessment/Plan (1) Acute hyperkalemia: (2) Acute kidney injury: PLAN: - 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 Baseline cr around 1.7 or so. Previous urine PCR 1.7 g. Renal ultrasound without hydronephrosis. Initially on admission patient treated with IV fluids then patient became edematous. BNP 13863, on O2 nasal cannula (does not wear oxygen at home). CXR was wet. IV fluids stopped. NATI possibly from cardiorenal syndrome. improved with lasix. edema is better. minimal O2 BUn higher but cr better monitor off lasix for now
--- NOTE | 2024-12-09 13:33 | CASEMGMT ---
Discharge Planning Per [facility], pt only has 10 skilled days left. Call placed to pts daughter who states that she will private pay until the end of December (she is a teacher) then take her home. This information was given to [facility]. SW updated. Geraldine Steven DC Planning Asst.
--- NOTE | 2024-12-09 15:35 | CASEMGMT ---
[facility] has obtained auth to admit, eff 12/10/24. SW updated. Geraldine Steven DC Planning Asst.
--- NOTE | 2024-12-09 16:44 | PCM.PN.HOSP ---
Reason for Visit Reason for Visit: Diagnoses Unspecified Escherichia coli [E. coli] as the cause of diseases classified elsewhere (12/03/24) Other Escherichia coli [E. coli] as the cause of diseases classified elsewhere (12/03/24) Hyperkalemia (12/03/24) Cellulitis of right toe (12/03/24) Acute kidney failure, unspecified (12/03/24) Urinary tract infection, site not specified (12/03/24) Bacteremia (12/03/24) Extended spectrum beta lactamase (ESBL) resistance (12/03/24) Objective Data Objective Data Vital Signs: Vital Signs Temp Pulse Resp BP Pulse Ox O2 Del Method O2 Flow Rate 98 F 70 16 133/53 H 94 Room Air 1 12/09/24 14:40 12/09/24 14:40 12/09/24 14:40 12/09/24 14:40 12/09/24 14:40 12/09/24 14:40 12/09/24 09:06 Oxygen Flow Rate (L/min) 1 Oxygen Delivery Method Room Air Weight: 162 lb 7.691 oz Body Mass Index (BMI) 32.8 Intake & Output: Intake and Output for Last 24 Hours 12/07/24 12/08/24 12/09/24 23:59 23:59 23:59 Intake Total 810 / 810 1080 / 1080 120 / 120 Output Total 1375 / 2275 3700 / 3700 1200 / 1200 Balance -565 / -1465 -2620 / -2620 -1080 / -1080 Lab / Micro Data 12/09/24 06:38 12/09/24 06:38 Labs: Laboratory Results - last 24 hr 12/08/24 17:26: POC Glucose 161 H 12/08/24 22:42: POC Glucose 139 H 12/09/24 05:56: POC Glucose 109 H 12/09/24 06:38: WBC 13.6 H, RBC 3.02 L, Hgb 8.8 L, Hct 26.8 L, MCV 88.7, MCH 29.1, MCHC 32.8, RDW Std Deviation 49.6 H, RDW Coeff of Fady 15.3 H, Plt Count 239, MPV 11.5, Immature Gran % (Auto) 1.600 H, Neut % (Auto) 71.1 H, Lymph % (Auto) 16.8 L, [place] % (Auto) 8.2, Eos % (Auto) 2.1, Baso % (Auto) 0.2, Absolute Neuts (auto) 9.7 H, Absolute Lymphs (auto) 2.28, Nucleated RBC % 0, Differential Comment S, Diff Path Review May foll, Atypical Lymphocytes 1+, Sodium 131 L, Potassium 4.3, Chloride 99, Carbon Dioxide 18.2 L, Anion Gap 14, BUN 114 H*, Creatinine 3.08 H, Estim Creat Clear Calc 13.49 L, Est GFR (MDRD) Non-Af 15 L, BUN/Creatinine Ratio 37.0 H, Glucose 110 H, Calcium 7.7 12/09/24 11:34: POC Glucose 157 H Micro: Microbiology 12/09/24 11:00 Stool Clostridioides difficile (PCR) - Final 12/03/24 10:35 Blood Culture (Wb) - Left Forearm Blood Culture - Final GNR lactose plant sciences professor 12/03/24 10:11 Urine, Clean Catch Urine Culture - Final ESBL Escherichia coli 12/03/24 10:11 Blood Culture (Wb) - Right Wrist Blood Culture - Final ESBL Escherichia coli Physical Exam Narrative Seen and examined Patient is awake and alert. Patient is still has back pain but is better than before. Able to move extremities but still not out of the bed. Discussed with ID She is not moving out of the bed and is scared because it exacerbates her pain. Chronic lower extremity weakness and pain. Denies burning pain in urine before coming to the hospital. Not on home oxygen. No crepitations. Physical exam General: Alert, awake oriented x 3. HEENT: Atraumatic, PERRLA, EOMI, Normocephalic Oral: Oral mucosa dry. No Gingival or Mucosal Lesions/ Ulcerations Neck: Supple, No JVD, Negative Carotid Bruits Chest wall/Lungs: Air entry diminished in all lung bills. On 2 L of oxygen. Cardiovascular: Paced rhythm, Normal S1, Normal S2, No M/G/R Abdomen: Bowel Sounds Present, Soft, Non Tender, Non-Distended : Son catheter. No renal angle tenderness. No suprapubic tenderness. Extremities: Bilateral nonpitting edema, Capillary Refill Less than 3 Seconds Skin: Right heel is padded. Pressure ulcer on the right heel and right buttock. Musculoskeletal: No Tenderness to Palpation of Joints or Extremities. ROM restricted Neurological: Cranial nerves II-XII grossly intact, DTR 2+/4. Muscle strength could not be examined. Psych/Mental Status: Flat affect. Assessment & Plan Assessment/Plan (1) UTI due to extended-spectrum beta lactamase (ESBL) producing Escherichia coli: (2) Acute kidney injury: (3) Acute hyperkalemia: PLAN: Plan Patient is a 79-year-old female who presented to [facility] ED on 12/03/2024 with dysuria and urine culture positive for ESBL E. coli. 1. Sepsis secondary to ESBL E. coli UTI with gram-negative bacteremia ? ID consulted. Urine culture from 12/01 growing greater than 100,000 ESBL E. coli sensitive to Zosyn. UA on admit here with 500 leukocyte esterase, negative nitrates, 25-50 WBCs, rare bacteria. Met sepsis criteria on admission with leukocytosis, fevers, NATI and presumed urinary source. Blood cultures on 12/03 preliminarily positive for gram-negative rods. Initially started on IV vancomycin and Zosyn. 12/06: Patient was seen by ID. ESBL E. coli bacteremia. Zosyn was changed to meropenem. No history of MRSA therefore vancomycin discontinued. Wounds improving. Sepsis is resolved. 12/07: ID follow-up appreciated. Continue meropenem. Patient refused for hospice and plan will be discharged to SNF when medically ready 12/08: Her meropenem dose will be completed tomorrow. the patient daughter stated that that treatment of ESBL E. coli bacteremia can make a difference in improvement of her general wellbeing and will decide about hospice afterwards. 12/09: Patient completed antibiotic meropenem. Discussed with ID. No further antibiotic recommendation. Pending pre-CERT. 2. Concern for right lower extremity infection in setting of chronic venous stasis changes with right heel pressure wound ? Follows with Dr. Forbes, last office visit on 11/30. Right heel wound was debrided down to level of subcu tissue at that time with no infectious signs noted. However, patient was also found to have ingrowing right medial hallux toenail and on I&D, scant purulent drainage was noted. Previous wound culture on 08/18/2024 grew MSSA. 12/08: Patient has right buttock and right heel ulcers 3. NATI on CKD stage 4 with hyperkalemia and metabolic acidosis ? Nephrology following. Creatinine 3.36, BUN 73, potassium 5.8, bicarb 12 on admit. Baseline creatinine 1.7-1.9. No EKG changes noted. Initially suspected to be prerenal NATI in setting of infection. Given 2 L of IV fluids on admit without improvement and then started on IV bicarbonate drip on 12/04. 12/06: Patient appears volume overloaded. On Lasix 20 mg IV twice daily but blood pressure is low. Higher suspicion of cardiorenal syndrome. Continue home calcitriol. Appreciate further nephrology recommendations. Kidney function not improving. Urine output also low, 200 mL since 12 midnight. Patient is low BP. Midodrine 10 mg 3 times daily added 12/07: Creatinine 3.91 no major change in GFR. Patient has high anion gap metabolic acidosis. Started on sodium bicarb. 12/09: Nephrology note reviewed. Creatinine 3.08 but no significant improvement in GFR. Cardiorenal syndrome. IV fluid started. Creatinine improving with Lasix. Monitor off Lasix. 4. Acute metabolic encephalopathy on dementia, multiple sedative and pain medications ? Patient noted to be more lethargic and somewhat confused since 12/04. ABG with pH 7.28, pCO2 28 so no concern for hypercapnia. BUN has been worsening with most recent BUN 86 on 12/05. Patient has also been on home oxycodone 10 mg scheduled every 6 hours and given her NATI will have decreased clearance of this; had doses held on 12/04 and will decrease to 5 mg every 6 hours for now. Continue to monitor closely. 12/06: Patient was awake but will deep sleep in afternoon. Probably due to oxycodone 5 mg Q6 hourly. Oxycodone dose decreased to 2.5 mg every 6 probably 12/07: Patient is more awake after changing the oxycodone. 5. Acute on chronic debility ? PT/OT/case management following. Recently required SNF placement after hospitalization in August. Most recently has been following with home health care. Poor therapy scores at this point, will need to either SNF or home with home health care on discharge. 6. Type 2 diabetes mellitus with neuropathy ? Follows with Dr. Collier. Most recent A1c 6.3% but Dr. Valencia noted this was underestimated in setting of anemia, is likely closer to the 7-8 range. Home regimen of Lantus 3 units at night and Humalog 50-50 mix. Blood sugars have been elevated to the mid to high 200s since admission. Started Lantus 15 units daily on 12/05, will continue high-dose sliding scale insulin with meals for now. Adjust as needed. Continue home gabapentin. 7. Restless leg syndrome ? Continue home pramipexole. 8. Chronic pain syndrome ? Continue reduced dose of oxycodone and gabapentin. 9. History of sick sinus syndrome s/p pacemaker placement ? Stable in paced rhythm on admit. 10. Chronic iron deficiency anemia and anemia of kidney disease ? Hemoglobin stable at baseline of 8-9 on admission. Continue home iron supplement. DVT prophylaxis: Heparin subcu CODE STATUS: DNR CCA, DNI In view of multiple comorbidities and patient low functional status including NATI and CKD stage IV, drowsiness/lethargy, low BP, acute on chronic debility and ESBL E. coli bacteremia, I talked to the patient's daughter and updated her clinical status. I suggested hospice/Perative care and she agreed. Currently DNR CCA with no intubation. Hospice meeting was done at 1:30 PM. They did not sign for hospice. Daughter wants to see outpatient dialysis for a few more days of antibiotics Charges/Coding Visit Charges Inpatient E&M: 66342 Subs Hosp L2
[2024-12-09 17:03] LABS: Bedside Glucose 151 mg/dL (74-106)
[2024-12-09] MEDS: Pramipexole Di-HCl 1 MG Tablet PO (22:04)
[2024-12-09 22:41] LABS: Bedside Glucose 242 mg/dL (74-106)
[2024-12-10 03:00] VITALS: PULSE 69
[2024-12-10 04:49] VITALS: BP 130/54; PULSE 86; RESP 18; TEMP 36.8; O2SAT 97
[2024-12-10] MEDS: Acetaminophen 325 MG Tablet 650 MG PO (04:55)
[2024-12-10] MEDS: oxyCODONE 5 MG Tablet 2.5 MG PO (04:55)
[2024-12-10 05:52] LABS: Absolute Lymphocyte Count 1.68 X10^3/uL (0.83-4.51); Absolute Neutrophil Count 8.9 X10^3/uL (2.0-7.7); Basophil# 0.03 X10^3/uL; Basophil% 0.2 % (0-1); Eosinophil# 0.27 X10^3/uL; Eosinophils% 2.2 % (0-5); Hematocrit 28.1 % (37-47); Hemoglobin 9.2 g/dL (12.0-15.0); Lymphocyte # 1.68 X10^3/ul (0.83-4.51); Lymphocyte % 13.9 % (19-41); Mean Corp Hgb Conc 32.7 g/dL (32-36); Mean Corpuscular Hgb 28.9 pg (27.0-32.0); Mean Corpuscular Volume 88.4 fL (81-99); Mean Platelet Vol. 10.9 fl (6.2-12.0); Monocyte% 8.3 % (0-10); NRBC Flagged by Analyzer 0 % (0-5); Neutrophil # 8.91 X10^3/uL (2.7-7.7); Neutrophil % 73.8 % (47-70); POSITIVE MORPHOLOGY YES; Platelet Count 278 K/mm3 (150-450); RBC Distribution Width CV 14.9 % (11.6-14.6); Red Blood Count 3.18 M/mm3 (4.2-5.4); White Blood Count 12.1 K/mm3 (4.4-11.0)
[2024-12-10 06:04] LABS: Differential Indicated SCAN CRITERIA MET
[2024-12-10 06:30] LABS: Anion Gap 12 (5-15); BUN 111 mg/dL (4-19); BUN/Creat Ratio 42.2 RATIO (10-20); Carbon Dioxide 19.1 mmol/L (21.0-32.0); Chloride 101 mmol/L (98-108); Creatinine, Serum 2.63 mg/dL (0.70-1.20); EST Glomerular Filtration Rate 18 (>60); Glucose 140 mg/dL (70-99); Potassium 4.3 mmol/L (3.3-5.1); Sodium Level 133 mmol/L (133-145)
[2024-12-10 06:41] LABS: Bedside Glucose 157 mg/dL (74-106)
[2024-12-10 08:34] LABS: Atypical Lymphocyte 1+ %
[2024-12-10 08:35] LABS: Platelet Estimate A (ADEQ)
--- NOTE | 2024-12-10 09:08 | PCM.TXEXTCAR ---
Diet Diet Order/Speech Therapy: 12/03/24 12:53 Diet: Consistent Carb - Calorie Controlled Food consistency:: Regular Liquid Consistency:: Regular/Thin Dietary Modifications:: No Added Salt How many daily calories?: 1800 calorie Routine Orders/Code Status Suppository Type: Dulcolax 10mg Suppository Frequency: Daily PRN Routine Lab Work: BMP (In 1 week) DC O2, CPAP, BIPAP needs Home O2 Discharge instructions: No Wound(s) right buttock: Wound Type: Pressure Injury Dressing Change: applied foam dressing right heel: Wound Type: Pressure Injury Dressing Change: NS moistened Cristina Therapies Extremity Affected:: Bilateral Lower Physical Therapy: Eval and Treat Occupational Therapy: Eval and Treat Speech Therapy: Eval and Treat Problem/Diagnosis (1) UTI due to extended-spectrum beta lactamase (ESBL) producing Escherichia coli: Status: Acute Code(s): N39.0 - Urinary tract infection, site not specified; B96.29 - Other Escherichia coli [E. coli] as the cause of diseases classified elsewhere; Z16.12 - Extended spectrum beta lactamase (ESBL) resistance (2) Acute kidney injury: Status: Acute Code(s): N17.9 - Acute kidney failure, unspecified (3) Acute hyperkalemia: Status: Acute Code(s): E87.5 - Hyperkalemia Plan Patient is a 79-year-old female who presented to [facility] ED on 12/03/2024 with dysuria and urine culture positive for ESBL E. coli. 1. Sepsis secondary to ESBL E. coli UTI with gram-negative bacteremia ? ID consulted. Urine culture from 12/01 growing greater than 100,000 ESBL E. coli sensitive to Zosyn. UA on admit here with 500 leukocyte esterase, negative nitrates, 25-50 WBCs, rare bacteria. Met sepsis criteria on admission with leukocytosis, fevers, NATI and presumed urinary source. Blood cultures on 12/03 preliminarily positive for gram-negative rods. Initially started on IV vancomycin and Zosyn. 12/06: Patient was seen by ID. ESBL E. coli bacteremia. Zosyn was changed to meropenem. No history of MRSA therefore vancomycin discontinued. Wounds improving. Sepsis is resolved. 12/07: ID follow-up appreciated. Continue meropenem. Patient refused for hospice and plan will be discharged to SNF when medically ready 12/08: Her meropenem dose will be completed tomorrow. the patient daughter stated that that treatment of ESBL E. coli bacteremia can make a difference in improvement of her general wellbeing and will decide about hospice afterwards. 12/09: Patient completed antibiotic meropenem. Discussed with ID. No further antibiotic recommendation. Pending pre-CERT. 2. Concern for right lower extremity infection in setting of chronic venous stasis changes with right heel pressure wound ? Follows with Dr. Forbes, last office visit on 11/30. Right heel wound was debrided down to level of subcu tissue at that time with no infectious signs noted. However, patient was also found to have ingrowing right medial hallux toenail and on I&D, scant purulent drainage was noted. Previous wound culture on 08/18/2024 grew MSSA. 12/08: Patient has right buttock and right heel ulcers 3. NATI on CKD stage 4 with hyperkalemia and metabolic acidosis ? Nephrology following. Creatinine 3.36, BUN 73, potassium 5.8, bicarb 12 on admit. Baseline creatinine 1.7-1.9. No EKG changes noted. Initially suspected to be prerenal NATI in setting of infection. Given 2 L of IV fluids on admit without improvement and then started on IV bicarbonate drip on 12/04. 12/06: Patient appears volume overloaded. On Lasix 20 mg IV twice daily but blood pressure is low. Higher suspicion of cardiorenal syndrome. Continue home calcitriol. Appreciate further nephrology recommendations. Kidney function not improving. Urine output also low, 200 mL since 12 midnight. Patient is low BP. Midodrine 10 mg 3 times daily added 12/07: Creatinine 3.91 no major change in GFR. Patient has high anion gap metabolic acidosis. Started on sodium bicarb. 12/09: Nephrology note reviewed. Creatinine 3.08 but no significant improvement in GFR. Cardiorenal syndrome. IV fluid started. Creatinine improving with Lasix. Monitor off Lasix. 4. Acute metabolic encephalopathy on dementia, multiple sedative and pain medications ? Patient noted to be more lethargic and somewhat confused since 12/04. ABG with pH 7.28, pCO2 28 so no concern for hypercapnia. BUN has been worsening with most recent BUN 86 on 12/05. Patient has also been on home oxycodone 10 mg scheduled every 6 hours and given her NATI will have decreased clearance of this; had doses held on 12/04 and will decrease to 5 mg every 6 hours for now. Continue to monitor closely. 12/06: Patient was awake but will deep sleep in afternoon. Probably due to oxycodone 5 mg Q6 hourly. Oxycodone dose decreased to 2.5 mg every 6 probably 12/07: Patient is more awake after changing the oxycodone. 5. Acute on chronic debility ? PT/OT/case management following. Recently required SNF placement after hospitalization in August. Most recently has been following with home health care. Poor therapy scores at this point, will need to either SNF or home with home health care on discharge. 6. Type 2 diabetes mellitus with neuropathy ? Follows with Dr. Collier. Most recent A1c 6.3% but Dr. Valencia noted this was underestimated in setting of anemia, is likely closer to the 7-8 range. Home regimen of Lantus 3 units at night and Humalog 50-50 mix. Blood sugars have been elevated to the mid to high 200s since admission. Started Lantus 15 units daily on 12/05, will continue high-dose sliding scale insulin with meals for now. Adjust as needed. Continue home gabapentin. 7. Restless leg syndrome ? Continue home pramipexole. 8. Chronic pain syndrome ? Continue reduced dose of oxycodone and gabapentin. 9. History of sick sinus syndrome s/p pacemaker placement ? Stable in paced rhythm on admit. 10. Chronic iron deficiency anemia and anemia of kidney disease ? Hemoglobin stable at baseline of 8-9 on admission. Continue home iron supplement. DVT prophylaxis: Heparin subcu CODE STATUS: DNR CCA, DNI In view of multiple comorbidities and patient low functional status including NATI and CKD stage IV, drowsiness/lethargy, low BP, acute on chronic debility and ESBL E. coli bacteremia, I talked to the patient's daughter and updated her clinical status. I suggested hospice/Perative care and she agreed. Currently DNR CCA with no intubation. Hospice meeting was done at 1:30 PM. They did not sign for hospice. Daughter wants to see outpatient dialysis for a few more days of antibiotics Allergies/Procedures Done in Hospital Allergies finerenone (From Kerendia) Adverse Reaction (Severe, Verified 12/03/24 09:44) Other HYPERKALEMIA Type of Care/Length of Stay Estimated LOS: Convalescent Care Less Than 30 days Type of Care Needed: Skilled Rehab Potential: Fair Prognosis: Fair Additional Orders/Day of Discharge Day of Discharge: 12/10/24 Dietary and Speech Recommendations Dietitian Recommendations/Changes: Will adjust diet order to 1800 calorie, consistent carbohydrate; no added salt. Continue Cooper BID w/ medpass - mix w/ cranberry juice per pt request. Discharge Plan Admission Admit Date/Time: 12/03/24 12:07 Primary Reason for Your Visit: Failure to thrive, ESBL UTI, treated Attending Provider: Jeses Odonnell Primary Care Provider: Leonard Stewart Consulting Providers: Conchis Savage; Ashu Sun; Ollie Hdez; Jorge Luis Godfrey; Radha Luis; Regina To; Rosalina Bernardo; Tigist Stewart SECURITY INCIDENT RESPONSE SPECIALIST; Paola Haines Discharge Orders/Prescriptions Prescriptions: New sodium bicarbonate 650 mg Tablet 650 mg PO TID Qty: 0 0RF Continued (DME) FreeStyle Antione 2 [place] Misc See Rx Instructions .ROUTE .MEDSUPPLY Qty: 2 6RF Rx Instructions: As directed ascorbic acid (vitamin C) 500 mg tablet 500 mg PO BID insulin glargine 100 unit/mL solution 3 unit subcut QPM Patient Comments: PT TAKES 3 UNITS AT BEDTIME. zinc gluconate 50 mg tablet 50 mg PO DAILY pramipexole 1 mg tablet 1 - 2 mg PO QHS Patient Comments: PT TAKES 2 TABLETS AT BEDTIME. ferrous sulfate 325 MG tablet 325 mg PO BID gabapentin [Neurontin] 300 mg capsule 300 mg PO BID Humalog Mix 50-50 KwikPen 100 unit/mL (50-50) insulin pen See Rx Instructions subcut DAILY Patient Comments: PT TAKES WITH MEALS. Rx Instructions: subcutaneously daily; SLIDING SCALE ergocalciferol (vitamin D2) 1,250 mcg (50,000 unit) capsule 1,250 mcg PO QWEEK Patient Comments: PT TAKES ON MONDAYS oxycodone 10 mg tablet 10 mg PO 4X/DAY 3 Days Qty: 12 0RF calcitriol 0.25 mcg capsule 0.25 mcg PO DAILY glucagon HCl [Glucagon (HCl) Emergency Kit] 1 mg recon soln 1 mg IM Q20M PRN (Reason: hypoglycemia) Rx Instructions: until target blood sugar attained acetaminophen [Acetaminophen Extra Strength] 500 mg tablet 1,000 mg PO 4X/DAY PRN (Reason: fever or pain) (DME) OneTouch Verio test strips Strip See Rx Instructions .ROUTE .MEDSUPPLY Qty: 100 3RF Rx Instructions: 3x/day (DME) FreeStyle Antione 2 Sensor Kit See Rx Instructions .Route Qty: 6 1RF Rx Instructions: As directed (DME) pen needle, diabetic [BD Ultra-Fine Tracee Pen Needle] 32 gauge x 5/32 needle See Rx Instructions .ROUTE .MEDSUPPLY Qty: 100 5RF Rx Instructions: As directed5 times daily Held furosemide 40 mg tablet 40 mg PO DAILY Hold Instructions: Hold it for 2 to 3 days. Follow-up with nephrology Referrals / Follow Up: Nicole Singleton MD [Med Staff - Consulting] - Within 2 Weeks Leonard Stewart DO [Primary Care Provider] - Disposition Disposition (needs filled in before D/C Order can be placed): Nursing Home Facility
[2024-12-10 09:17] VITALS: BP 125/45; PULSE 74; RESP 18; TEMP 36.9; O2SAT 93
--- NOTE | 2024-12-10 09:17 | DS.PCM_ITS ---
Providers Date of Admission: 12/03/24 Date of Discharge: 12/10/24 Primary Care Physician: Dr. 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 Routine Comment: 12/04/24 07:50 Consult: Nephrology Routine Consulting Provider: Conchis Savage Reason for Consult: NATI on CKD stage IV EMERGENT Consult: No MD Notified: Yes Date Notified: 12/04/24 Time Notified: 07:50 Method of Notification: Answering Service 12/05/24 07:24 Consult: Infectious Disease Routine Consulting Provider: Ollie Hdez Reason for Consult: ESBL E coli UTI w/ bacteremia EMERGENT Consult: No MD Notified: Yes Date Notified: 12/06/24 Time Notified: 06:55 Method of Notification: Text 12/06/24 15:00 Consult: Hospice / Palliative Care Routine Consulting Provider: [facility] Reason for Consult: hypotension, nati on ckd 4 ,swelling, FTT EMERGENT Consult: No MD Notified: Yes Date Notified: 12/06/24 Time Notified: 15:01 Method of Notification: Answering Service Reason For Visit: ESBL E COLI UTI Diagnosis Discharge Diagnosis (1) UTI due to extended-spectrum beta lactamase (ESBL) producing Escherichia coli: Status: Acute Code(s): N39.0 - Urinary tract infection, site not specified; B96.29 - Other Escherichia coli [E. coli] as the cause of diseases classified elsewhere; Z16.12 - Extended spectrum beta lactamase (ESBL) resistance (2) Acute kidney injury: Status: Acute Code(s): N17.9 - Acute kidney failure, unspecified (3) Acute hyperkalemia: Status: Acute Code(s): E87.5 - Hyperkalemia Plan Patient is a 79-year-old female who presented to [facility] ED on 12/03/2024 with dysuria and urine culture positive for ESBL E. coli. 1. Sepsis secondary to ESBL E. coli UTI with gram-negative bacteremia ? ID consulted. Urine culture from 12/01 growing greater than 100,000 ESBL E. coli sensitive to Zosyn. UA on admit here with 500 leukocyte esterase, negative nitrates, 25-50 WBCs, rare bacteria. Met sepsis criteria on admission with leukocytosis, fevers, NATI and presumed urinary source. Blood cultures on 12/03 preliminarily positive for gram-negative rods. Initially started on IV vancomycin and Zosyn. 12/06: Patient was seen by ID. ESBL E. coli bacteremia. Zosyn was changed to meropenem. No history of MRSA therefore vancomycin discontinued. Wounds improving. Sepsis is resolved. 12/07: ID follow-up appreciated. Continue meropenem. Patient refused for hospice and plan will be discharged to SNF when medically ready 12/08: Her meropenem dose will be completed tomorrow. the patient daughter stated that that treatment of ESBL E. coli bacteremia can make a difference in improvement of her general wellbeing and will decide about hospice afterwards. 12/09: Patient completed antibiotic meropenem. Discussed with ID. No further antibiotic recommendation. Pending pre-CERT. 12/10: Patient had pre-CERT. Going to [facility]. 2. Concern for right lower extremity infection in setting of chronic venous stasis changes with right heel pressure wound ? Follows with Dr. Forbes, last office visit on 11/30. Right heel wound was debrided down to level of subcu tissue at that time with no infectious signs noted. However, patient was also found to have ingrowing right medial hallux toenail and on I&D, scant purulent drainage was noted. Previous wound culture on 08/18/2024 grew MSSA. 12/08: Patient has right buttock and right heel ulcers 12/10: [facility]. 3. NATI on CKD stage 4 with hyperkalemia and metabolic acidosis ? Nephrology following. Creatinine 3.36, BUN 73, potassium 5.8, bicarb 12 on admit. Baseline creatinine 1.7-1.9. No EKG changes noted. Initially suspected to be prerenal NATI in setting of infection. Given 2 L of IV fluids on admit without improvement and then started on IV bicarbonate drip on 12/04. 12/06: Patient appears volume overloaded. On Lasix 20 mg IV twice daily but blood pressure is low. Higher suspicion of cardiorenal syndrome. Continue home calcitriol. Appreciate further nephrology recommendations. Kidney function not improving. Urine output also low, 200 mL since 12 midnight. Patient is low BP. Midodrine 10 mg 3 times daily added 12/07: Creatinine 3.91 no major change in GFR. Patient has high anion gap metabolic acidosis. Started on sodium bicarb. 12/09: Nephrology note reviewed. Creatinine 3.08 but no significant improvement in GFR. Cardiorenal syndrome. IV fluid started. Creatinine improving with Lasix. Monitor off Lasix. 12/10: Follow-up with nephrology in 1 week. Follow-up BMP [facility]. 4. Acute metabolic encephalopathy on dementia, multiple sedative and pain medications ? Patient noted to be more lethargic and somewhat confused since 12/04. ABG with pH 7.28, pCO2 28 so no concern for hypercapnia. BUN has been worsening with most recent BUN 86 on 12/05. Patient has also been on home oxycodone 10 mg scheduled every 6 hours and given her NATI will have decreased clearance of this; had doses held on 12/04 and will decrease to 5 mg every 6 hours for now. Continue to monitor closely. 12/06: Patient was awake but will deep sleep in afternoon. Probably due to oxycodone 5 mg Q6 hourly. Oxycodone dose decreased to 2.5 mg every 6 probably 12/07: Patient is more awake after changing the oxycodone. 5. Acute on chronic debility ? PT/OT/case management following. Recently required SNF placement after hospitalization in August. Most recently has been following with home health care. Poor therapy scores at this point, will need to either SNF or home with home health care on discharge. 6. Type 2 diabetes mellitus with neuropathy ? Follows with Dr. Collier. Most recent A1c 6.3% but Dr. Valencia noted this was underestimated in setting of anemia, is likely closer to the 7-8 range. Home regimen of Lantus 3 units at night and Humalog 50-50 mix. Blood sugars have been elevated to the mid to high 200s since admission. Started Lantus 15 units daily on 12/05, will continue high-dose sliding scale insulin with meals for now. Adjust as needed. Continue home gabapentin. 7. Restless leg syndrome ? Continue home pramipexole. 8. Chronic pain syndrome ? Continue reduced dose of oxycodone and gabapentin. 9. History of sick sinus syndrome s/p pacemaker placement ? Stable in paced rhythm on admit. 10. Chronic iron deficiency anemia and anemia of kidney disease ? Hemoglobin stable at baseline of 8-9 on admission. Continue home iron supplement. DVT prophylaxis: Heparin subcu CODE STATUS: DNR CCA, DNI In view of multiple comorbidities and patient low functional status including NATI and CKD stage IV, drowsiness/lethargy, low BP, acute on chronic debility and ESBL E. coli bacteremia, I talked to the patient's daughter and updated her clinical status. I suggested hospice/Perative care and she agreed. Currently DNR CCA with no intubation. Discharge medication reconciliation done. Discharge follow-up instructions completed. Discharge process discussed with the patient and all questions were answered to patient's satisfaction. Follow with PCP in 1 to 2 weeks Total time spent, exact 35 minutes on discharge meds reconciliation, examination, coordination of care with nurses and ancillary staff, review of imaging and blood test and discussion with the patient on follow-up instructions. Medications at Discharge Home Medications ferrous sulfate 325 mg (65 mg iron) tablet 325 mg PO BID supplement 08/14/17 furosemide 40 mg tablet 40 mg PO DAILY diuretic 11/09/20 Held on 12/10/24. Instructions: Hold it for 2 to 3 days. Follow-up with nephrology flash glucose scanning reader (Polyview MediaStyle Antione 2 [place]) #2 ea 12/17/21 insulin lispro protamine-lispro 100 unit/mL (50-50) subcutaneous pen (Humalog Mix 50-50 KwikPen) See Rx Instructions subcut DAILY t2dm 09/24/23 blood sugar diagnostic (OneTouch Verio test strips) #100 ea 10/24/23 flash glucose sensor (FreeStyle Antione 2 Sensor kit) #6 ea 10/24/23 pen needle, diabetic 32 gauge x 5/32 (BD Ultra-Fine Tracee Pen Needle) #100 ea 10/24/23 ergocalciferol (vitamin D2) 1,250 mcg (50,000 unit) capsule 1,250 mcg PO QWEEK 11/18/23 oxycodone 10 mg tablet 10 mg PO 4X/DAY chronic pain 3 days #12 tabs 08/20/24 ascorbic acid (vitamin C) 500 mg tablet 500 mg PO BID 09/07/24 insulin glargine 100 unit/mL subcutaneous solution 3 unit subcut QPM 09/07/24 zinc gluconate 50 mg tablet 50 mg PO DAILY 09/07/24 gabapentin 300 mg capsule (Neurontin) 300 mg PO BID neuropathic pain 11/23/24 pramipexole 1 mg tablet 1 - 2 mg PO QHS 11/23/24 acetaminophen 500 mg tablet (Acetaminophen Extra Strength) 1,000 mg PO 4X/DAY PRN fever or pain 12/03/24 calcitriol 0.25 mcg capsule 0.25 mcg PO DAILY 12/03/24 glucagon HCl 1 mg solution for injection (Glucagon (HCl) Emergency Kit) 1 mg IM Q20M PRN hypoglycemia 12/03/24 sodium bicarbonate 650 mg tablet 650 mg PO TID #0 tabs 12/10/24 Physical Exam Narrative Seen and examined Patient is awake and alert. Patient still has pain in multiple extremities but she can move it. Complain of mild back pain. Chronic lower extremity weakness and pain. Denies burning pain in urine before coming to the hospital. Not on home oxygen. No crepitations. Physical exam General: Alert, awake oriented x 3. HEENT: Atraumatic, PERRLA, EOMI, Normocephalic Oral: Oral mucosa dry. No Gingival or Mucosal Lesions/ Ulcerations Neck: Supple, No JVD, Negative Carotid Bruits Chest wall/Lungs: Air entry diminished in all lung bills. 93% on room air. Cardiovascular: Paced rhythm, Normal S1, Normal S2, No M/G/R Abdomen: Bowel Sounds Present, Soft, Non Tender, Non-Distended : Son catheter. No renal angle tenderness. No suprapubic tenderness. Extremities: Bilateral nonpitting edema, Capillary Refill Less than 3 Seconds Skin: Right heel is padded. Pressure ulcer on the right heel and right buttock. Musculoskeletal: No Tenderness to Palpation of Joints or Extremities. ROM restricted Neurological: Cranial nerves II-XII grossly intact, DTR 2/4. Muscle strength could not be examined. Psych/Mental Status: Flat affect. Weight / BMI Weight Weight: 162 lb 7.691 oz Body Mass Index (BMI) 32.8 ABG / Lab / Microbiology Data 12/10/24 04:33 12/10/24 04:33 Laboratory: Laboratory Results - last 24 hr 12/09/24 16:42: POC Glucose 151 H 12/09/24 22:02: POC Glucose 242 H 12/10/24 04:33: WBC 12.1 H, RBC 3.18 L, Hgb 9.2 L, Hct 28.1 L, MCV 88.4, MCH 28.9, MCHC 32.7, RDW Std Deviation 48.0 H, RDW Coeff of Fady 14.9 H, Plt Count 278, MPV 10.9, Immature Gran % (Auto) 1.600 H, Neut % (Auto) 73.8 H, Lymph % (Auto) 13.9 L, Noble % (Auto) 8.3, Eos % (Auto) 2.2, Baso % (Auto) 0.2, Absolute Neuts (auto) 8.9 H, Absolute Lymphs (auto) 1.68, Nucleated RBC % 0, Atypical Lymphocytes 1+, Platelet Estimate A, Sodium 133, Potassium 4.3, Chloride 101, C arbon Dioxide 19.1 L, Anion Gap 12, BUN 111 H*, Creatinine 2.63 H, Estim Creat Clear Calc 15.80 L, Est GFR (MDRD) Non-Af 18 L, BUN/Creatinine Ratio 42.2 H, G lucose 140 H, Calcium 8.0 12/10/24 06:10: POC Glucose 157 H Microbiology: Microbiology 12/09/24 11:00 Stool Clostridioides difficile (PCR) - Final 12/03/24 10:35 Blood Culture (Wb) - Left Forearm Blood Culture - Final GNR lactose 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 * Patients 75 years or YOUNGER should receive HIGH intensity statin dose unless contraindicated. You will be required to document reason for non-treatment if statin daily dose does not meet guidelines. HIGH DOSE STATIN THERAPY DAILY Atorvastatin > than or = to 40 mg Rosuvastatin > than or = to 20 mg Amlodipine + Atorvastatin > than or = to 2.5/40 mg Ezetimibe + Simvastatin 10/80 mg Simvastatin 80mg Discharge Plan Admission Admit Date/Time: 12/03/24 12:07 Primary Reason for Your Visit: Failure to thrive, ESBL UTI, treated Attending Provider: Jesse Odonnell Primary Care Provider: Leonard Stewart Consulting Providers: Conchis Savage; Ashu Sun; Ollie Hdez; Jorge Luis Godfrey; Radha Luis; Regina To; Rosalina Bernardo; Tigist Stewart NP; Paola Haines Discharge Orders/Prescriptions Prescriptions: New sodium bicarbonate 650 mg Tablet 650 mg PO TID Qty: 0 0RF Continued (DME) FreeStyle Antione 2 [place] Misc See Rx Instructions .ROUTE .MEDSUPPLY Qty: 2 6RF Rx Instructions: As directed ascorbic acid (vitamin C) 500 mg tablet 500 mg PO BID insulin glargine 100 unit/mL solution 3 unit subcut QPM Patient Comments: PT TAKES 3 UNITS AT BEDTIME. zinc gluconate 50 mg tablet 50 mg PO DAILY pramipexole 1 mg tablet 1 - 2 mg PO QHS Patient Comments: PT TAKES 2 TABLETS AT BEDTIME. ferrous sulfate 325 MG tablet 325 mg PO BID gabapentin [Neurontin] 300 mg capsule 300 mg PO BID Humalog Mix 50-50 KwikPen 100 unit/mL (50-50) insulin pen See Rx Instructions subcut DAILY Patient Comments: PT TAKES WITH MEALS. Rx Instructions: subcutaneously daily; SLIDING SCALE ergocalciferol (vitamin D2) 1,250 mcg (50,000 unit) capsule 1,250 mcg PO QWEEK Patient Comments: PT TAKES ON MONDAYS oxycodone 10 mg tablet 10 mg PO 4X/DAY 3 Days Qty: 12 0RF calcitriol 0.25 mcg capsule 0.25 mcg PO DAILY glucagon HCl [Glucagon (HCl) Emergency Kit] 1 mg recon soln 1 mg IM Q20M PRN (Reason: hypoglycemia) Rx Instructions: until target blood sugar attained acetaminophen [Acetaminophen Extra Strength] 500 mg tablet 1,000 mg PO 4X/DAY PRN (Reason: fever or pain) (DME) OneTouch Verio test strips Strip See Rx Instructions .ROUTE .MEDSUPPLY Qty: 100 3RF Rx Instructions: 3x/day (DME) FreeStyle Antione 2 Sensor Kit See Rx Instructions .Route Qty: 6 1RF Rx Instructions: As directed (DME) pen needle, diabetic [BD Ultra-Fine Tracee Pen Needle] 32 gauge x 5/32 needle See Rx Instructions .ROUTE .MEDSUPPLY Qty: 100 5RF Rx Instructions: As directed5 times daily Held furosemide 40 mg tablet 40 mg PO DAILY Hold Instructions: Hold it for 2 to 3 days. Follow-up with nephrology Referrals / Follow Up: Nicole Singleton MD [Med Staff - Consulting] - Within 2 Weeks Leonard Stewart DO [Primary Care Provider] - Disposition Disposition (needs filled in before D/C Order can be placed): [facility] Charges/Coding Visit Charges Inpatient E&M: 13802 Disch Hosp >30min
[2024-12-10] MEDS: Sodium Bicarbonate 650 MG Tablet PO (09:26)
[2024-12-10] MEDS: Ascorbic Acid 500 MG Tablet PO (09:26)
[2024-12-10] MEDS: Juven (unflavored) Packet 1 PACKET PO (09:26)
[2024-12-10] MEDS: Midodrine HCl 5 MG Tablet 10 MG PO (09:26)
[2024-12-10] MEDS: Insulin Glargine-YFGN 100 UNIT/ML Pen 15 UNIT SC (09:27)
[2024-12-10] MEDS: Gabapentin 300 MG Capsule PO (09:27)
[2024-12-10] MEDS: Calcitriol 0.25 MCG Capsule PO (09:27)
[2024-12-10] MEDS: Heparin Injection (Vial) 5,000 UNIT/ML VIAL 5000 UNIT SC (09:36)
--- NOTE | 2024-12-10 09:42 | CASEMGMT ---
Addendum entered by Mary Miranda 12/10/24 09:54: SW also sent orders and olive picker time to [facility] via [facility]. Mary BABCOCK Original Note: Patient is ready for discharge to [facility]. SW completed a 7000 in HENS system. GALILEO called Physicians and arranged for patient to get picked up at 1030 via cot. SW notified patient's daughter Juliann and medical secretary. GALILEO notified RN as well. Plan: d/c to [facility] under skilled level of care on a convalescent stay. Physicians will transport patient via cot. Mary BABCOCK
--- NOTE | 2024-12-10 09:46 | PHA.DC_ITS ---
Pharmacy [place] Med Reconciliation Pharmacy Service has performed discharge medication reconciliation for this patient. The patient's discharge medication list was reviewed for discrepancies and discrepancies were resolved. Medications at Discharge Home Medications ferrous sulfate 325 mg (65 mg iron) tablet 325 mg PO BID supplement 08/14/17 furosemide 40 mg tablet 40 mg PO DAILY diuretic 11/09/20 Held on 12/10/24. Instructions: Hold it for 2 to 3 days. Follow-up with nephrology flash glucose scanning reader (CitizenShipperStyle Antione 2 [place]) #2 ea 12/17/21 insulin lispro protamine-lispro 100 unit/mL (50-50) subcutaneous pen (Humalog Mix 50-50 KwikPen) See Rx Instructions subcut DAILY t2dm 09/24/23 blood sugar diagnostic (Sense.lyTouch Verio test strips) #100 ea 10/24/23 flash glucose sensor (FreeStyle Antione 2 Sensor kit) #6 ea 10/24/23 pen needle, diabetic 32 gauge x 5/32 (BD Ultra-Fine Tracee Pen Needle) #100 ea 10/24/23 ergocalciferol (vitamin D2) 1,250 mcg (50,000 unit) capsule 1,250 mcg PO QWEEK 11/18/23 oxycodone 10 mg tablet 10 mg PO 4X/DAY chronic pain 3 days #12 tabs 08/20/24 ascorbic acid (vitamin C) 500 mg tablet 500 mg PO BID 09/07/24 insulin glargine 100 unit/mL subcutaneous solution 3 unit subcut QPM 09/07/24 zinc gluconate 50 mg tablet 50 mg PO DAILY 09/07/24 gabapentin 300 mg capsule (Neurontin) 300 mg PO BID neuropathic pain 11/23/24 pramipexole 1 mg tablet 1 - 2 mg PO QHS 11/23/24 acetaminophen 500 mg tablet (Acetaminophen Extra Strength) 1,000 mg PO 4X/DAY PRN fever or pain 12/03/24 calcitriol 0.25 mcg capsule 0.25 mcg PO DAILY 12/03/24 glucagon HCl 1 mg solution for injection (Glucagon (HCl) Emergency Kit) 1 mg IM Q20M PRN hypoglycemia 12/03/24 sodium bicarbonate 650 mg tablet 650 mg PO TID #0 tabs 12/10/24
== END 2024-12-10 10:40 | disposition skilled nursing facility (03) | DRG 871 ==
LOC: ED 11:27 → PCU 12:29
PROVIDERS: Family Medicine; Internal Medicine Nephrology; Nurse Practitioner Adult Health; Admitting Provider Hospitalist; Emergency Provider Emergency Medicine; PCP Family Medicine; Visit Provider Internal Medicine
DX: A41.51 Sepsis due to Escherichia coli [E. coli] (principal); G93.41 Metabolic encephalopathy; E87.20 Acidosis, unspecified; N18.4 Chronic kidney disease, stage 4 (severe); L97.415 Non-pressure chronic ulcer of right heel and midfoot with muscle involvement without evidence of necrosis; N17.9 Acute kidney failure, unspecified; E87.1 Hypo-osmolality and hyponatremia; N39.0 Urinary tract infection, site not specified; Z16.12 Extended spectrum beta lactamase (ESBL) resistance; L89.319 Pressure ulcer of right buttock, unspecified stage; D63.1 Anemia in chronic kidney disease; Z66 Do not resuscitate; L89.616 Pressure-induced deep tissue damage of right heel; F03.90 Unspecified dementia, unspecified severity, without behavioral disturbance, psychotic disturbance, mood disturbance, and anxiety; E66.01 Morbid (severe) obesity due to excess calories; E11.621 Type 2 diabetes mellitus with foot ulcer; G25.81 Restless legs syndrome; I13.10 Hypertensive heart and chronic kidney disease without heart failure, with stage 1 through stage 4 chronic kidney disease, or unspecified chronic kidney disease; E87.5 Hyperkalemia; D50.9 Iron deficiency anemia, unspecified; I87.8 Other specified disorders of veins; Z79.4 Long term (current) use of insulin; I25.2 Old myocardial infarction; E11.22 Type 2 diabetes mellitus with diabetic chronic kidney disease; E11.622 Type 2 diabetes mellitus with other skin ulcer; L98.419 Non-pressure chronic ulcer of buttock with unspecified severity; E11.51 Type 2 diabetes mellitus with diabetic peripheral angiopathy without gangrene; E11.42 Type 2 diabetes mellitus with diabetic polyneuropathy; M79.89 Other specified soft tissue disorders; Z79.891 Long term (current) use of opiate analgesic; G89.4 Chronic pain syndrome; Z90.710 Acquired absence of both cervix and uterus; L03.031 Cellulitis of right toe; Z95.0 Presence of cardiac pacemaker; Z96.643 Presence of artificial hip joint, bilateral; R53.81 Other malaise; Z79.899 Other long term (current) drug therapy; Z86.31 Personal history of diabetic foot ulcer; R60.0 Localized edema
CPT/HCPCS: 11042; 36415; 36600; 71045; 76770; 80048; 80053; 80202; 81001; 82140; 82570; 82803; 82962; 83605; 83735; 83880; 84300; 85025; 85027; 85610; 85730; 86037; 87040; 87077; 87086; 87088; 87186; 87493; 93306; 94640; 97110; 97162; 97166; 97530; 97535; 97802; 99285; J2185; Q9957; A4216; J0612; J1940